=== PATIENT | female | born 1950 | race Caucasian/White ===

== ENCOUNTER → 2017-05-28 | Outpatient (CLI) | payer OTHER, MEDICARE, SELFPAY | PROVIDERS: Visit Provider Surgery | DX: Z12.31 Encounter for screening mammogram for malignant neoplasm of breast (principal); Z85.3 Personal history of malignant neoplasm of breast ==

== ENCOUNTER 2017-06-02 11:00 | Outpatient (RCR) | payer OTHER, MEDICARE, SELFPAY | END 2017-06-02 23:59 | LOC: PT 11:00 | PROVIDERS: Visit Provider Internal Medicine | DX: I89.0 Lymphedema, not elsewhere classified (principal); N64.4 Mastodynia; C50.911 Malignant neoplasm of unspecified site of right female breast | CPT/HCPCS: 97140; 97162; 97164 ==

== ENCOUNTER → 2017-06-03 10:34 | Outpatient (CLI) | payer OTHER, MEDICARE, SELFPAY ==
--- NOTE | 2017-06-03 | MM_ITS ---
MM Dig screening mamm BI w/CAD CAD Screening ORDERING PHYSICIAN : Mark Umana MD PATIENT AGE: 66 years GENDER: Female COMPARISON: Previous mammograms: 2016, May INDICATION: A 66-year-old. Previous lumpectomy and radiation right breast No hormones. No new complaints. Noncontributory family history TECHNIQUE: Standard CC and MLO images were obtained. R2 CAD reviewed. FINDINGS: RIGHT BREAST:Postsurgical lumpectomy changes are now evident upper outer quadrant of right breast with several vascular clips at the lumpectomy site. No recurrent mass is seen here. There is increased accentuation throughout the glandular elements of the right breast compared to prior study. This may reflect post radiation changes. In addition there is Generous diffuse skin thickening right breast - again most compatible with post radiation change. However Ongoing follow-up will be important to short stability and/or regression of these likely posttreatment findings and distortion. Given this fairly pronounced skin thickening and the parenchymal densities I would suggest a follow-up right mammogram in 6-8 months to confirm this is new baseline. LEFT BREAST:I stable appearance. Minimal fibroglandular element benign calcifications. Follow up one year on left. IMPRESSION: 1. RIGHT BREAST Postsurgical lumpectomy changes , upper-outer quadrant right breast now evident. Increased accentuation of fibroglandular elements throughout the right breast, along with diffuse generous skin thickening. These features most compatible with post radiation changes but slight more pronounced than typically seen in this patient. Thus Would suggest a 6-8 month follow-up to confirm this as new baseline 2. LEFT BREAST: Stable left breast. No new areas concern on the left. Follow-up in one year on left BI-RADS Category: 3 Benign Finding Short Term Follow-up right breast RECOMMENDED FOLLOW-UP: 6M - 6 MONTH FOLLOW-UP right breast One year follow-up left breast (A letter has been sent to the patient regarding results of the study.)
== END ==
PROVIDERS: Family Provider Internal Medicine Adolescent Medicine; PCP Internal Medicine Adolescent Medicine; Visit Provider Surgery
DX: Z12.31 Encounter for screening mammogram for malignant neoplasm of breast (principal); Z85.3 Personal history of malignant neoplasm of breast
CPT/HCPCS: 77067

== ENCOUNTER 2017-06-04 09:00 | Outpatient (RCR) | payer OTHER, MEDICARE, SELFPAY | END 2017-06-04 23:59 | LOC: PT 09:00 | PROVIDERS: Family Provider Internal Medicine Adolescent Medicine; PCP Internal Medicine Adolescent Medicine; Visit Provider Nurse Practitioner | DX: I89.0 Lymphedema, not elsewhere classified (principal) | CPT/HCPCS: 97140 ==

== ENCOUNTER → 2017-07-27 09:11 | Outpatient (CLI) | payer OTHER, MEDICARE, SELFPAY ==
[2017-07-27 09:29] LABS: Basophils % 0.5 % (0.1-2.0); Eosinophils # 0.2 K/mm3 (0.0-0.4); Eosinophils % 3.1 % (0.1-12.0); Hematocrit 45.7 % (37.0-47.0); Lymphocytes # 1.9 K/mm3 (0.7-4.5); Lymphocytes % 25.4 K/mm3 (10-50); Mean Corpuscular HGB Conc 32.9 g/dL (31.8-35.4); Mean Corpuscular Hemoglobin 31.1 pg (27.0-31.2); Mean Corpuscular Volume 94.3 fl (81-99); Mean Platelet Volume 9.2 fl (7.4-10.4); Monocytes # 0.4 K/mm3 (0.1-1.0); Monocytes % 5.5 % (1.7-9.3); Neutrophils # 4.8 K/mm3 (1.8-7.8); Neutrophils % 65.5 % (37.0-80.0); Platelet Count 170 K/mm3 (142-424); Red Blood Count 4.84 M/mm3 (4.20-5.40); Red Cell Distribution Width 12.9 % (11.5-17.5); White Blood Count 7.4 K/mm3 (4.8-10.8)
[2017-07-27 15:28] LABS: Alanine Aminotransferase 38 U/L (12-78); Albumin Level 3.7 gm/dL (3.4-5.0); Albumin/Globulin Ratio 1.3 (1.1-1.8); Alkaline Phosphatase 111 U/L (46-116); Aspartate Amino Transferase 30 U/L (15-37); Bilirubin,Total 0.4 mg/dL (0.2-1.0); Blood Urea Nitrogen 13 mg/dL (7-18); Calcium 9.4 mg/dL (8.5-10.1); Carbon Dioxide 31 mmol/L (21.0-32.0); Creatinine,Serum 1.44 mg/dL (0.55-1.02); Estimated Glomerular Filt Rate 36 ml/min (>60); GFR (African American) 44 ML/MIN (>60); Globulin 2.9 gm/dl (1.3-3.2); Glucose 103 mg/dL (74-106); Total Protein,Serum 6.6 gm/dL (6.4-8.2)
[2017-07-27 18:12] LABS: Anion Gap 13.2 mEq/L (5-15); Chloride 107 mmol/L (98-107); Potassium 5.2 mmoL/L (3.5-5.1); Sodium 146 mmol/L (136-145)
== END ==
PROVIDERS: Visit Provider Nurse Practitioner
DX: C50.911 Malignant neoplasm of unspecified site of right female breast (principal); Z17.0 Estrogen receptor positive status [ER+]
CPT/HCPCS: 36415; 80053; 85025

== ENCOUNTER → 2017-08-10 09:42 | Outpatient (CLI) | payer OTHER, MEDICARE, SELFPAY ==
[2017-08-10 10:25] LABS: Alanine Aminotransferase 37 U/L (12-78); Albumin Level 3.5 gm/dL (3.4-5.0); Albumin/Globulin Ratio 1.1 (1.1-1.8); Alkaline Phosphatase 107 U/L (46-116); Anion Gap 11.7 mEq/L (5-15); Aspartate Amino Transferase 33 U/L (15-37); Bilirubin,Total 0.2 mg/dL (0.2-1.0); Blood Urea Nitrogen 17 mg/dL (7-18); Calcium 9.2 mg/dL (8.5-10.1); Carbon Dioxide 28 mmol/L (21.0-32.0); Chloride 109 mmol/L (98-107); Chol/HDL Ratio 5.8 (1-3.5); Cholesterol 157 mg/dL (140-200); Creatinine,Serum 1.55 mg/dL (0.55-1.02); Estimated Glomerular Filt Rate 33 ml/min (>60); GFR (African American) 40 ML/MIN (>60); Globulin 3.2 gm/dl (1.3-3.2); Glucose 95 mg/dL (74-106); HDL Cholesterol 27 mg/dL (29-89); LDL Cholesterol 82 mg/dL (0-130); Potassium 4.7 mmoL/L (3.5-5.1); Sodium 144 mmol/L (136-145); Thyroid Stimulating Hormone 0.42 uIU/ml (0.358-3.740); Total Protein,Serum 6.7 gm/dL (6.4-8.2); Triglycerides 239 mg/dL (30-200); VLDL Cholesterol 48 mg/dL (0-40)
== END ==
PROVIDERS: Visit Provider Internal Medicine Adolescent Medicine
DX: E78.5 Hyperlipidemia, unspecified (principal); E03.9 Hypothyroidism, unspecified
CPT/HCPCS: 36415; 80053; 80061; 84443

== ENCOUNTER → 2017-12-04 12:13 | Outpatient (CLI) | payer OTHER, MEDICARE, SELFPAY ==
--- NOTE | 2017-12-04 12:15 | MM_ITS ---
MM Dig mamm DX unilat RT CAD INDICATION: Follow-up surgery and radiation for breast cancer ORDERING PHYSICIAN: Mark Umana MD PATIENT AGE: 67 years COMPARISON: 06/03/2017 TECHNIQUE: Standard images performed FINDINGS: Postsurgical changes of the right breast once again noted. There is continued skin thickening as well as postsurgical change with architectural distortion with increased accentuation throughout the glandular elements on the right breast and scattered benign-appearing calcifications. Overall the findings are slightly improved from the previous exam IMPRESSION: Postsurgical and postradiation changes, no change with no evidence of malignancy. BI-RADS Category: 2 Benign Finding(s) RECOMMENDED FOLLOW-UP: 6M - 6 MONTH FOLLOW-UP Recommend bilateral mammogram in June 2018 (A letter has been sent to the patient regarding results of the study.)
== END ==
PROVIDERS: Family Provider Internal Medicine Adolescent Medicine; PCP Internal Medicine Adolescent Medicine; Visit Provider Surgery
DX: N64.59 Other signs and symptoms in breast (principal)
CPT/HCPCS: 77065

== ENCOUNTER → 2018-01-20 09:53 | Outpatient (CLI) | payer OTHER, MEDICARE, SELFPAY ==
[2018-01-20 11:15] LABS: Anion Gap 12.2 mEq/L (5-15); Blood Urea Nitrogen 14 mg/dL (7-18); Calcium 9.5 mg/dL (8.5-10.1); Carbon Dioxide 29 mmol/L (21.0-32.0); Chloride 107 mmol/L (98-107); Creatinine,Serum 1.55 mg/dL (0.55-1.02); Estimated Glomerular Filt Rate 33 ml/min (>60); GFR (African American) 40 ML/MIN (>60); Glucose 92 mg/dL (74-106); Potassium 5.2 mmoL/L (3.5-5.1); Sodium 143 mmol/L (136-145)
== END ==
PROVIDERS: Visit Provider Nurse Practitioner
DX: C50.911 Malignant neoplasm of unspecified site of right female breast (principal); N28.9 Disorder of kidney and ureter, unspecified
CPT/HCPCS: 36415; 80048

== ENCOUNTER → 2018-04-28 10:08 | Outpatient (CLI) | payer OTHER, MEDICARE, SELFPAY ==
--- NOTE | 2018-04-28 10:13 | CT_ITS ---
CT CERVICAL SPINE WITHOUT CONTRAST CT RECONSTRUCTIONS HISTORY:Neck pain ORDERING PHYSICIAN: Krishan Caldwell MD PATIENT AGE: 67 years COMPARISON: None Technique: All CT scans at the facility use one or more dose reduction, viz: automated exposure control, ma/kV adjustment per patient size (including targeted exams where dose is matched to indication, i.e. head), or iterative reconstruction technique PROCEDURE: Axial spiral CT scanning performed of the cervical spine beginning at the base of the skull and continuing to the upper T-spine. 3-D multiplanar reconstruction with 3-D manipulation of volumetric data set in image rendering was completed by the radiologist and/or technologist with the supervision of the radiologist on independent workstation. FINDINGS: There is reversal of the lower cervical lordosis. Multilevel spondylosis noted. C1-C2: Mild hypertrophic changes of the bilateral occipital joint. C2-C3: Right-sided facet hypertrophic change with foraminal narrowing C3-C4: 4 mm anterolisthesis of C3. Facet and uncovertebral hypertrophy on the right with severe right-sided foraminal narrowing due to the severe facet hypertrophic change. The canal is narrowed at 10 mm. Mild degenerative disc disease C4-C5: 3 mm anterolisthesis of C4. Moderate to severe left-sided facet hypertrophic change with left-sided foraminal narrowing with narrowing of the canal is 10 mm. Mild degenerative disc disease C5-C6: Bilateral facet and uncovertebral hypertrophy with bilateral foraminal narrowing greater on the right with bulging disc and mild degenerative disc disease C6-C7: Mild facet hypertrophic changes with bilateral foraminal narrowing with degenerative disc disease. C7-T1: Facet hypertrophic changes There are prominent anterior osteophytes C4-C7 consistent with DISH IMPRESSION: 1. Multilevel cervical spondylosis with degenerative disc disease and facet and uncovertebral hypertrophy with bilateral foraminal narrowing and canal stenosis at multiple levels. Please see above for detailed description at each level. 2. DISH of the cervical spine. 3. No acute fracture
== END ==
PROVIDERS: PCP Internal Medicine Adolescent Medicine; Visit Provider Internal Medicine Adolescent Medicine
DX: M54.2 Cervicalgia (principal)
CPT/HCPCS: 72125

== ENCOUNTER → 2018-05-18 09:59 | Outpatient (POV) | payer OTHER, MEDICARE, SELFPAY ==
[2018-05-18 10:23] VITALS: BP 137/87; PULSE 92; RESP 18; O2SAT 99
--- NOTE | 2018-05-18 10:35 | HMH.PMCON ---
Assessment and Plan (1) Degenerative disc disease, cervical Current visit: Yes Status: Chronic Category: Medical Code(s): M50.30 - Other cervical disc degeneration, unspecified cervical region - Assessment and plan all Dx Assessment and Plan for all problems:: We will see this patient back on an as-needed basis. Patient's been instructed to call her our office if her pain worsens. This note was dictated using voice recognition software and may contain errors or omissions HPI - Data of Consult Consult date: 05/18/18 Requesting Physician: Lynn Braun APRN Primary Care Provider: Krishan Caldwell MD - Consult Narrative Reason for consult: Neck pain History of present illness: Ms. Iyer is a 67 year old female presents today for consultation. Patient states that she woke up several weeks ago with extreme neck pain however she states she is not having any more neck pain. She does have numbness in her right arm however she states that this is due to carpal tunnel. She states that she does have a pain when she lifts heavy things. But rest and heat and Tylenol take care of it. Patient is an MRI showing some degenerative changes. CC: Lynn Braun APRN [facility] History I have reviewed the patient's past medical history: Yes Medical History: Reports:: Cancer, Hyperlipidemia, Hypertension Other Medical History: Reports: Hypothyroidism Laterality Cases: Right: Breast Biopsy Other Surgeries: Yes: Tubal Ligation Amputation: No Fractures: No - *Social History Smoking Status: Never smoker Alcohol Intake: never Substance Use Type: denies use Occupational Status: employed Housing: house - Psychiatric History Expresses thoughts of harming self/others: None Suicide Plan Description: No Plan *Family Hx:: Hypertension, Cancer, Thyroid Disorder Review of Systems - Review of Systems ROS General: no recent weight change, no fever, no sleep disturbances Respiratory: no cough, no shortness of air, no recurring pulmonary infections Cardiovascular/Peripheral Vascular: No chest pain, No palpitations, no edema, no shortness of breath. Gastrointestinal: no incontinence, normal bowel movements reported Genitourinary: no incontinence Musculoskeletal: Neck pain Psychiatric: normal mood/ affect Neurological: [denies weakness in extremities], [denies balance issues] Meds Home Medications Medication Instructions Recorded Confirmed Type amlodipine 10 mg-olmesartan 20 mg 1 tab PO QDAY 06/23/17 History tablet nebivolol 10 mg tablet 10 mg PO QDAY 06/23/17 History pravastatin 40 mg tablet 40 mg PO QHS 06/23/17 History tamoxifen 10 mg tablet 10 mg PO BID 06/23/17 History levothyroxine 125 mcg capsule 125 mcg PO ONCE 07/29/17 History gabapentin 300 mg capsule 300 mg PO BID cap 08/05/17 History Allergies Allergy/AdvReac Type Severity Reaction Status Date / Time niacin [NIACIN] Allergy Intermediate I-RASH Verified 01/20/18 10:21 Objective Vital signs: Pulse Resp BP Pulse Ox 92 H 18 137/87 99 05/18/18 10:23 05/18/18 10:23 05/18/18 10:23 05/18/18 10:23 Narrative: Physical Exam General: Alert and oriented x3, no acute distress, pleasant and cooperative, [on room air] Lungs: Resps E/U, Symmetrical chest expansion, Eyes: PERRL Musculoskeletal: Flexion and extension of cervical spine somewhat guarded secondary to pain, deep tendon reflexes normal, strength in upper and lower extremities [5/5], slightly antalgic gait noted Neurological: speech clear, 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
--- NOTE | 2018-05-18 10:38 | P.CONS_ITS ---
Assessment and Plan (1) Degenerative disc disease, cervical Current visit: Yes Status: Chronic Category: Medical Code(s): M50.30 - Other cervical disc degeneration, unspecified cervical region - Assessment and plan all Dx Assessment and Plan for all problems:: We will see this patient back on an as-needed basis. Patient's been instructed to call her our office if her pain worsens. This note was dictated using voice recognition software and may contain errors or omissions HPI - Data of Consult Consult date: 05/18/18 Requesting Physician: Lynn Braun APRN Primary Care Provider: Krishan Caldwell MD - Consult Narrative Reason for consult: Neck pain History of present illness: Ms. Iyer is a 67 year old female presents today for consultation. Patient states that she woke up several weeks ago with extreme neck pain however she states she is not having any more neck pain. She does have numbness in her right arm however she states that this is due to carpal tunnel. She states that she does have a pain when she lifts heavy things. But rest and heat and Tylenol take care of it. Patient is an MRI showing some degenerative changes. CC: Lynn Braun APRN [facility] History I have reviewed the patient's past medical history: Yes Medical History: Reports:: Cancer, Hyperlipidemia, Hypertension Other Medical History: Reports: Hypothyroidism Laterality Cases: Right: Breast Biopsy Other Surgeries: Yes: Tubal Ligation Amputation: No Fractures: No - *Social History Smoking Status: Never smoker Alcohol Intake: never Substance Use Type: denies use Occupational Status: employed Housing: house - Psychiatric History Expresses thoughts of harming self/others: None Suicide Plan Description: No Plan *Family Hx:: Hypertension, Cancer, Thyroid Disorder Review of Systems - Review of Systems ROS General: no recent weight change, no fever, no sleep disturbances Respiratory: no cough, no shortness of air, no recurring pulmonary infections Cardiovascular/Peripheral Vascular: No chest pain, No palpitations, no edema, no shortness of breath. Gastrointestinal: no incontinence, normal bowel movements reported Genitourinary: no incontinence Musculoskeletal: Neck pain Psychiatric: normal mood/ affect Neurological: [denies weakness in extremities], [denies balance issues] Meds Home Medications Medication Instructions Recorded Confirmed Type amlodipine 10 mg-olmesartan 20 mg 1 tab PO QDAY 06/23/17 History tablet nebivolol 10 mg tablet 10 mg PO QDAY 06/23/17 History pravastatin 40 mg tablet 40 mg PO QHS 06/23/17 History tamoxifen 10 mg tablet 10 mg PO BID 06/23/17 History levothyroxine 125 mcg capsule 125 mcg PO ONCE 07/29/17 History gabapentin 300 mg capsule 300 mg PO BID cap 08/05/17 History Allergies Allergy/AdvReac Type Severity Reaction Status Date / Time niacin [NIACIN] Allergy Intermediate I-RASH Verified 01/20/18 10:21 Objective Vital signs: Pulse Resp BP Pulse Ox 92 H 18 137/87 99 05/18/18 10:23 05/18/18 10:23 05/18/18 10:23 05/18/18 10:23 Narrative: Physical Exam General: Alert and oriented x3, no acute distress, pleasant and cooperative, [on room air] Lungs: Resps E/
== END ==
PROVIDERS: PCP Internal Medicine Adolescent Medicine; Visit Provider Clinical Nurse Specialist Family Health
DX: M50.30 Other cervical disc degeneration, unspecified cervical region (principal)
CPT/HCPCS: 99202

== ENCOUNTER → 2018-06-07 12:35 | Outpatient (CLI) | payer OTHER, MEDICARE, SELFPAY ==
--- NOTE | 2018-06-07 12:40 | MM_ITS ---
MM Dig screening mamm BI w/CAD ORDERING PHYSICIAN : Krystle Chan PATIENT AGE: 67 years GENDER: Female COMPARISON: November 2017 and June 2017 right mammogram. Also previous June and July 2016 study was INDICATION: .: breast cancer right lumpectomy with radiation. July 2016 No chemotherapy. Surgical scar noted towards upper-outer quadrant right breast No new complaints TECHNIQUE: Standard CC and MLO images were obtained. R2 CAD reviewed. FINDINGS: RIGHT BREAST: Postsurgical changes upper outer quadrant right breast are again noted with architectural distortion & multiple vascular clips. The mild skin thickening right breast reflecting post radiation changes have decreased slightly since last years studies. There is very subtle thin rim about up to 3 cm ovoid fat density area with a upper-outer quadrant right breast. This most likely reflects postsurgical changes and possibly area of developing oil cyst or possibly fat necrosis. Only some very small scant small calcifications inferior to this which appear unchanged This mild accentuation of fibroglandular elements anterior to the surgical site also again noted but appear to be stable. . However given the overall appearance would suggest a 6 month follow-up to confirm stability of the mild changes and architectural distortion that is currently attributed to surgery and radiation. . LEFT BREAST: Stable with no significant findings. Scattered calcifications. Follow-up in one year on left IMPRESSION: 1. RIGHT BREAST: Previous lumpectomy and post radiation changes right breast. Postsurgical distortion and mild accentuation of fibroglandular elements and features most certainly reflect post radiation and surgical changes.. However would suggest a follow-up right mammogram in 6 months to further confirm stability 2. LEFT BREAST: stable left breast with no areas of concern. Follow-up in one year on left. BI-RADS Category: 3 Probably Benign Finding Short Term Follow-up RECOMMENDED FOLLOW-UP: 6M 6 MONTH FOLLOW-UP right breast (A letter has been sent to the patient regarding results of the study.)
== END ==
PROVIDERS: PCP Internal Medicine Adolescent Medicine; Visit Provider Nurse Practitioner
DX: C50.911 Malignant neoplasm of unspecified site of right female breast (principal); Z12.31 Encounter for screening mammogram for malignant neoplasm of breast
CPT/HCPCS: 77067

== ENCOUNTER → 2018-07-26 09:42 | Outpatient (CLI) | payer OTHER, SELFPAY ==
[2018-07-26 09:58] LABS: Basophils % 0.6 % (0.1-2.0); Eosinophils # 0.2 K/mm3 (0.0-0.4); Eosinophils % 2.6 % (0.1-12.0); Hematocrit 41.8 % (37.0-47.0); Hemoglobin 13.9 g/dL (12.2-16.2); Lymphocytes # 1.8 K/mm3 (0.7-4.5); Lymphocytes % 27.9 % (10-50); Mean Corpuscular HGB Conc 33.3 g/dL (31.8-35.4); Mean Corpuscular Hemoglobin 31.4 pg (27.0-31.2); Mean Corpuscular Volume 94.2 fl (81-99); Mean Platelet Volume 8.9 fl (7.4-10.4); Monocytes # 0.3 K/mm3 (0.1-1.0); Monocytes % 5.4 % (1.7-9.3); Neutrophils % 63.5 % (37.0-80.0); Platelet Count 163 K/mm3 (142-424); Red Blood Count 4.44 M/mm3 (4.20-5.40); Red Cell Distribution Width 13.4 % (11.5-17.5); White Blood Count 6.3 K/mm3 (4.8-10.8)
[2018-07-26 11:08] LABS: Alanine Aminotransferase 32 U/L (12-78); Albumin Level 3.5 gm/dL (3.4-5.0); Albumin/Globulin Ratio 1.2 (1.1-1.8); Alkaline Phosphatase 119 U/L (46-116); Anion Gap 12.4 mEq/L (5-15); Aspartate Amino Transferase 30 U/L (15-37); Bilirubin,Total 0.3 mg/dL (0.2-1.0); Blood Urea Nitrogen 12 mg/dL (7-18); Calcium 9.2 mg/dL (8.5-10.1); Carbon Dioxide 29 mmol/L (21.0-32.0); Chloride 106 mmol/L (98-107); Creatinine,Serum 1.32 mg/dL (0.55-1.02); Estimated Glomerular Filt Rate 40 ml/min (>60); GFR (African American) 48 ML/MIN (>60); Glucose 121 mg/dL (74-106); Potassium 4.4 mmoL/L (3.5-5.1); Sodium 143 mmol/L (136-145); Total Protein,Serum 6.5 gm/dL (6.4-8.2)
== END ==
PROVIDERS: Visit Provider Nurse Practitioner
DX: C50.911 Malignant neoplasm of unspecified site of right female breast (principal); N18.9 Chronic kidney disease, unspecified
CPT/HCPCS: 36415; 80053; 85025

== ENCOUNTER → 2018-07-27 08:06 | Outpatient (CLI) | payer OTHER, SELFPAY ==
--- NOTE | 2018-07-27 08:12 | XR_ITS ---
XR DEXA axial skeleton HISTORY: ITS.REASON: POST MENOPAUSAL SCREENING ORDERING PHYSICIAN: Krishan Caldwell MD PATIENT AGE: 67 years COMPARISON: 04/21/2017 FINDINGS: The BMD measured at the Right femoral neck is 1.068 g/cm squared with a T score of 0.2. This is considered Normal according to the World Health Organization criteria. Fracture risk is Low. Treatment is advised. The main hip density has decreased by 0.9%. L1 L4 density has a T score of 3.1 which is normal and has increased by 1.4% IMPRESSION: Normal bone density with low fracture risk. Follow-up exam suggested July 2020
== END ==
PROVIDERS: PCP Internal Medicine Adolescent Medicine; Visit Provider Internal Medicine Adolescent Medicine
DX: Z13.820 Encounter for screening for osteoporosis (principal); Z78.0 Asymptomatic menopausal state
CPT/HCPCS: 77080

== ENCOUNTER 2018-08-13 09:00 | Outpatient (RCR) | payer OTHER, SELFPAY ==
--- NOTE | 2018-08-05 09:16 | HMH.PTOPWND ---
Rehab Outpt Wound Evaluation Rehab OP Wound Evaluation Start: 08/05/18 09:07 Freq: Status: Active Protocol: Document 08/05/18 09:07 DONNELL (Rec: 08/05/18 09:16 PHOJEOVANNY [id number]) Electronically Signed By Kamar Carpenter, PT 08/05/18 09:07 Subjective/History History History Pt is a 67 yowf who presents with c/o mild increased edema and heaviness throughout the right UE and breast ~ 2 yrs S/ P right breast lumpectomy with lymph node resection. Sh reports no pain currently, but does have intermittent decreased sensation due to her oral chemo medication. She reports she has been wearing her compression garments as indicated, which helps keep her edema down. She has hx of HTN, HL, hypthyroid. Lymphedema Eval Classification of Lymphedema Secondary Lymphedema Yes Stemmer's sign Stemmer's Sign no Stage of Lymphedema Lymphedema stages Stage 0 (subjective c/o heaviness and aching) Skin Changes Dry Skin Yes Pain Scale Pain Scale (0-10) 0 Radiation Therapy Has received radiation therapy yes Chemo Therapy Has received chemo therapy yes Affected Extremities Areas Affected by Lymphedema/Edema Right Upper Extremity Abdomen Right Breast Right Axilla Manual Lymphatic Drainage Treatment Area MLD Treatment Area Right Upper Extremity Abdomen Right Breast Right Axilla Wound Problems/Impairments Impairments Problems/Impairmments Palpation Tenderness Impaired Strength Impaired Recreational Activities Increased Edema Lymphedema Present Subjective C/O Pain Impaired Self Care/Self Management Prognosis Rehab Potential Good Clinical Impression Consistent with Diagnosis Yes Short Term Goals Number of Weeks 4 Patient to be Ind w/ Lymphedema Self Yes Massage Technique Patient to be Ind w/ [place] Yes Compression Garments Patient to Understand Lymphedema
== END 2018-08-13 09:05 | disposition home or self-care (01) ==
LOC: PT 09:00
PROVIDERS: Visit Provider Nurse Practitioner
DX: I89.0 Lymphedema, not elsewhere classified (principal); C50.911 Malignant neoplasm of unspecified site of right female breast; M79.601 Pain in right arm; M54.2 Cervicalgia
CPT/HCPCS: 97010; 97110; 97140; 97162

== ENCOUNTER → 2018-12-06 12:43 | Outpatient (CLI) | payer OTHER, SELFPAY ==
--- NOTE | 2018-12-06 12:44 | MM_ITS ---
MM Dig mamm DX unilat RT CAD INDICATION: 6 month follow-up ORDERING PHYSICIAN: Mark Umana MD PATIENT AGE: 68 years COMPARISON: 06/07/2018, 12/04/2017 TECHNIQUE: Standard images of the right breast FINDINGS: Previous lumpectomy and postradiation changes of the right breast once again noted. Surgical clips are present in the upper portion of the right breast posteriorly near the 11:00 region. There is a lucent area at this region measuring 2.9 x 2.8 cm. Similar to the previous exam consistent with thyroidal cyst. Postsurgical changes with increased density and faint calcifications once again noted involving the central aspect of the right breast not significant change. Scattered coarse calcifications are noted which are stable. Skin thickening also noted unchanged. No new abnormalities apparent. Architectural distortion noted in the surgical bed as before. IMPRESSION: Postsurgical changes, no interval change with no evidence of malignancy. Recommend resume bilateral mammogram in June 2019 BI-RADS Category: 2 Benign Finding(s) RECOMMENDED FOLLOW-UP: 6M - 6 MONTH FOLLOW-UP (A letter has been sent to the patient regarding results of the study.)
== END ==
PROVIDERS: PCP Internal Medicine Adolescent Medicine; Visit Provider Surgery
DX: C50.111 Malignant neoplasm of central portion of right female breast (principal); Z17.0 Estrogen receptor positive status [ER+]
CPT/HCPCS: 77065

== ENCOUNTER → 2019-01-21 10:03 | Outpatient (CLI) | payer OTHER, SELFPAY ==
[2019-01-21 10:28] LABS: Basophils # 0.1 K/mm3 (0-0.2); Basophils % 0.8 % (0.1-2.0); Eosinophils # 0.1 K/mm3 (0.0-0.4); Eosinophils % 2.3 % (0.1-12.0); Hematocrit 43.5 % (37.0-47.0); Lymphocytes # 1.6 K/mm3 (0.7-4.5); Lymphocytes % 25.7 % (10-50); Mean Corpuscular HGB Conc 32.1 g/dL (31.8-35.4); Mean Corpuscular Volume 96.4 fl (81-99); Mean Platelet Volume 8.7 fl (7.4-10.4); Monocytes # 0.5 K/mm3 (0.1-1.0); Monocytes % 7.2 % (1.7-9.3); Platelet Count 185 K/mm3 (142-424); Red Blood Count 4.52 M/mm3 (4.20-5.40); Red Cell Distribution Width 13.2 % (11.5-17.5); White Blood Count 6.3 K/mm3 (4.8-10.8)
[2019-01-21 11:39] LABS: Alanine Aminotransferase 33 U/L (12-78); Albumin Level 3.6 gm/dL (3.4-5.0); Albumin/Globulin Ratio 1.2 (1.1-1.8); Alkaline Phosphatase 105 U/L (46-116); Anion Gap 10.3 mEq/L (5-15); Aspartate Amino Transferase 35 U/L (15-37); Bilirubin,Total 0.3 mg/dL (0.2-1.0); Blood Urea Nitrogen 14 mg/dL (7-18); Calcium 9.1 mg/dL (8.5-10.1); Carbon Dioxide 28 mmol/L (21.0-32.0); Chloride 108 mmol/L (98-107); Chol/HDL Ratio 5.3 (1-3.5); Cholesterol 147 mg/dL (140-200); Creatinine,Serum 1.47 mg/dL (0.55-1.02); Estimated Glomerular Filt Rate 35 ml/min (>60); GFR (African American) 43 ML/MIN (>60); Globulin 2.9 gm/dl (1.3-3.2); Glucose 96 mg/dL (74-106); HDL Cholesterol 28 mg/dL (29-89); LDL Cholesterol 69 mg/dL (0-130); Potassium 4.3 mmoL/L (3.5-5.1); Sodium 142 mmol/L (136-145); Thyroid Stimulating Hormone 0.26 uIU/ml (0.358-3.740); Total Protein,Serum 6.5 gm/dL (6.4-8.2); Triglycerides 250 mg/dL (30-200); VLDL Cholesterol 50 mg/dL (0-40)
== END ==
PROVIDERS: Visit Provider Internal Medicine Adolescent Medicine
DX: E78.5 Hyperlipidemia, unspecified (principal); E03.9 Hypothyroidism, unspecified; C50.911 Malignant neoplasm of unspecified site of right female breast
CPT/HCPCS: 36415; 80053; 80061; 84443; 85025

== ENCOUNTER → 2019-01-28 12:36 | Outpatient (CLI) | payer OTHER, SELFPAY ==
--- NOTE | 2019-01-28 12:40 | XR_ITS ---
PROCEDURE: XR FOOT RT MIN 3V CLINICAL INDICATION: CELLULITIS OF SECOND TOE Redness, pain, swelling COMPARISON: No exams were available for comparison FINDINGS: No fracture or dislocation. No lytic or blastic change. There is normal mineralization. Minimal osteoarthritic changes are present at the 1st metatarsophalangeal joint. A small sclerotic area involves the proximal and lateral aspect of the proximal phalanx of the 2nd toe. No definite bony destructive process evident. IMPRESSION: Degenerative change, no acute finding Dictated by: Barry Fairbanks MD 01/28/2019 13:32 Signed by: <Electronically signed by Barry Fairbanks MD in [place]> 01/28/2019 13:32
== END ==
PROVIDERS: PCP Internal Medicine Adolescent Medicine; Visit Provider Internal Medicine Adolescent Medicine
DX: L03.031 Cellulitis of right toe (principal)
CPT/HCPCS: 73630

== ENCOUNTER → 2019-05-02 11:18 | Outpatient (CLI) | payer OTHER, SELFPAY ==
[2019-05-02 12:44] LABS: Blood Urea Nitrogen 15 mg/dL (7-18); Calcium 9.2 mg/dL (8.5-10.1); Carbon Dioxide 29 mmol/L (21.0-32.0); Chloride 107 mmol/L (98-107); Creatinine,Serum 1.45 mg/dL (0.55-1.02); Estimated Glomerular Filt Rate 36 ml/min (>60); GFR (African American) 43 ML/MIN (>60); Glucose 89 mg/dL (74-106); Sodium 145 mmol/L (136-145); Thyroid Stimulating Hormone 0.46 uIU/ml (0.358-3.740)
== END ==
PROVIDERS: Visit Provider Internal Medicine Adolescent Medicine
DX: E03.9 Hypothyroidism, unspecified (principal); N17.9 Acute kidney failure, unspecified
CPT/HCPCS: 36415; 80048; 84443

== ENCOUNTER → 2019-06-28 08:52 | Outpatient (CLI) | payer OTHER, SELFPAY ==
--- NOTE | 2019-06-28 08:52 | MM_ITS ---
PROCEDURE: MM DIG SCREENING MAMM BI W/CAD CLINICAL INDICATION: history of right breast cancer with previous lumpectomy and follow-up radiation therapy COMPARISON: DXRT MM Dig mamm DX unilat RT CAD from 12/04/2017 [facility] MM Dig screening mamm BI w/CAD from 06/07/2018 DIG MAMM-DX UNI-RT from 12/06/2018 TECHNIQUE: Standard CC and MLO images and 3D Tomosinthisis was obtained. R2 CAD reviewed. FINDINGS: Postlumpectomy changes are seen right breast with multiple surgical clips at the biopsy site. There is diffuse skin thickening secondary to radiation therapy. There are scattered benign-appearing calcifications in each breast along with a background of diffuse fibroglandular densities. There is minimal arterial calcification in each breast. There is a mole marker left breast. There is no new or suspicious lesion in either breast and no suspicious microcalcifications. IMPRESSION: Stable exam with prominent postlumpectomy changes and post radiation therapy changes right breast BI-RAD Category: 2 Benign Finding(s) FOLLOW-UP: 1YR 1 Year Follow-up (A letter has been sent to the patient regarding results of the study.) Dictated by: Dr. Cruz Herrera MD 06/29/2019 09:[address] Cruz Herrera MD in [place] 06/29/2019 09:32
== END ==
PROVIDERS: PCP Internal Medicine Adolescent Medicine; Visit Provider Surgery
DX: Z12.39 Encounter for other screening for malignant neoplasm of breast (principal); Z85.3 Personal history of malignant neoplasm of breast
CPT/HCPCS: 77063; 77067

== ENCOUNTER → 2020-01-25 09:47 | Outpatient (CLI) | payer OTHER, SELFPAY ==
[2020-01-25 10:35] LABS: Basophils % 0.5 % (0.1-2.0); Eosinophils # 0.3 K/mm3 (0.0-0.4); Eosinophils % 3.3 % (0.1-12.0); Hematocrit 41.5 % (37.0-47.0); Hemoglobin 14.4 g/dL (12.2-16.2); Lymphocytes # 2.4 K/mm3 (0.7-4.5); Lymphocytes % 28.3 % (10-50); Mean Corpuscular HGB Conc 34.6 g/dL (31.8-35.4); Mean Corpuscular Hemoglobin 31.8 pg (27.0-31.2); Mean Corpuscular Volume 91.9 fl (81-99); Mean Platelet Volume 8.6 fl (7.4-10.4); Monocytes # 0.5 K/mm3 (0.1-1.0); Monocytes % 5.8 % (1.7-9.3); Neutrophils # 5.2 K/mm3 (1.8-7.8); Neutrophils % 62.1 % (37.0-80.0); Platelet Count 173 K/mm3 (142-424); Red Blood Count 4.52 M/mm3 (4.20-5.40); Red Cell Distribution Width 13.8 % (11.5-17.5); White Blood Count 8.4 K/mm3 (4.8-10.8)
[2020-01-25 11:07] LABS: Alanine Aminotransferase 21 U/L (12-78); Albumin Level 3.9 g/dl (3.5-5.0); Albumin/Globulin Ratio 1.4 (1.1-1.8); Alkaline Phosphatase 102 U/L (38-126); Anion Gap 14.5 mEq/L (5-15); Aspartate Amino Transferase 35 U/L (14-36); Bilirubin,Total 0.4 mg/dl (0.2-1.3); Blood Urea Nitrogen 18 mg/dl (7-17); Calcium 9.5 mg/dl (8.4-10.2); Carbon Dioxide 29 mmol/L (22.0-30.0); Chloride 102 mmol/L (98-107); Estimated Glomerular Filt Rate 37 ml/min (>60); GFR (African American) 45 ML/MIN (>60); Globulin 2.7 g/dL (1.3-3.2); Glucose 87 mg/dl (74-100); Potassium 4.5 mmoL/L (3.5-5.1); Sodium 141 mmol/L (136-145); Total Protein,Serum 6.6 g/dl (6.3-8.2)
== END ==
PROVIDERS: Visit Provider Internal Medicine Medical Oncology
DX: Z85.3 Personal history of malignant neoplasm of breast (principal)
CPT/HCPCS: 36415; 80053; 85025

== ENCOUNTER → 2020-01-26 13:58 | Outpatient (CLI) | payer OTHER, SELFPAY ==
--- NOTE | 2020-01-26 14:02 | CA_ITS ---
APPROVED REPORT Right Lower Extremity Venous Study for DVT. Chief Telephone Operator: TREVER MotaT Indications Lower Extremity Edema: Right RT ANKLE SWELLING X SEVERAL WKS, PT ON CHEMO FOR BREAST CA Risk Factors Malignancy Vein Imaging CFV (R): compressive, spontaneous, phasic, augmentation FEM (R): compressive, spontaneous, phasic, augmentation POP (R): compressive, spontaneous, phasic, augmentation PTV (R): Compressible GSV (R): Compressible Peroneals (R):Compressible GAS (R): Compressible Findings Study suggests no evidence of DVT of the right lower extremity. Study suggests noo evidence of SVT of the right lower extremity. Conclusion Study suggests no evidence of DVT of the right lower extremity. Study suggests noo evidence of SVT of the right lower extremity. Electronically signed by : Barry Fairbanks MD 01/27/2020 15:53:10
== END ==
PROVIDERS: PCP Internal Medicine Adolescent Medicine; Visit Provider Internal Medicine Medical Oncology
DX: R22.41 Localized swelling, mass and lump, right lower limb (principal)
CPT/HCPCS: 93971

== ENCOUNTER → 2020-07-02 08:04 | Outpatient (CLI) | payer OTHER, SELFPAY ==
--- NOTE | 2020-07-02 08:11 | MM_ITS ---
PROCEDURE: MM DIG SCREENING MAMM BI W/CAD Digital Breast Tomosynthesis Included CLINICAL INDICATION: screening There has been a previous lumpectomy right breast for malignancy with follow-up radiation therapy. COMPARISON: [facility] MM Dig screening mamm BI w/CAD from 06/07/2018 MG DIG MAMM-DX UNI-RT from 12/06/2018 MG MM DIG SCREENING MAMM BI W/CAD from 06/28/2019 TECHNIQUE: Standard CC and MLO images and 3D Tomosynthesis was obtained. R2 CAD reviewed. FINDINGS: Mild postlumpectomy scarring is seen upper central portion right breast. There is prominent diffuse skin thickening secondary to previous radiation therapy. Five surgical clips are seen at the lumpectomy site. There are few scattered benign appearing calcifications in each breast. There is faint arterial calcification in each breast. There is a mole marker left breast. There is no suspicious lesion in either breast and no suspicious microcalcifications. IMPRESSION: Stable exam post lumpectomy right breast with no suspicious lesions seen BI-RAD Category: 2 Benign Finding(s) FOLLOW-UP: 1YR 1 Year Follow-up (A letter has been sent to the patient regarding results of the study.) Dictated by: Dr. Cruz Herrera MD 07/03/2020 08:33 Dr. Cruz Herrera MD in [place] 07/03/2020 08:33
== END ==
PROVIDERS: PCP Internal Medicine Adolescent Medicine; Visit Provider Surgery
DX: Z85.3 Personal history of malignant neoplasm of breast (principal); Z12.31 Encounter for screening mammogram for malignant neoplasm of breast
CPT/HCPCS: 77063; 77067

== ENCOUNTER → 2020-08-07 07:28 | Outpatient (CLI) | payer OTHER, SELFPAY ==
[2020-08-07 07:54] LABS: Basophils # 0.1 K/mm3 (0-0.2); Basophils % 0.7 % (0.1-2.0); Eosinophils # 0.4 K/mm3 (0.0-0.4); Eosinophils % 4.8 % (0.1-12.0); Hematocrit 46.9 % (37.0-47.0); Hemoglobin 14.9 g/dL (12.2-16.2); Lymphocytes # 2.2 K/mm3 (0.7-4.5); Lymphocytes % 26.8 % (10-50); Mean Corpuscular HGB Conc 31.8 g/dL (31.8-35.4); Mean Corpuscular Hemoglobin 30.4 pg (27.0-31.2); Mean Corpuscular Volume 95.8 fl (81-99); Monocytes # 0.5 K/mm3 (0.1-1.0); Monocytes % 6.5 % (1.7-9.3); Neutrophils % 61.1 % (37.0-80.0); Platelet Count 186 K/mm3 (142-424); Red Cell Distribution Width 13.8 % (11.5-17.5); White Blood Count 8.1 K/mm3 (4.8-10.8)
[2020-08-07 08:58] LABS: Chloride 106 mmol/L (98-107); Sodium 142 mmol/L (136-145)
[2020-08-07 08:59] LABS: Potassium 4.4 mmoL/L (3.5-5.1)
[2020-08-07 09:01] LABS: Alanine Aminotransferase 23 U/L (12-78); Alkaline Phosphatase 99 U/L (38-126); Anion Gap 11.4 mEq/L (5-15); Aspartate Amino Transferase 38 U/L (14-36); Bilirubin,Total 0.7 mg/dl (0.2-1.3); Blood Urea Nitrogen 18 mg/dl (7-17); Carbon Dioxide 29 mmol/L (22.0-30.0); Estimated Glomerular Filt Rate 37 ml/min (>60); GFR (African American) 45 ML/MIN (>60)
[2020-08-07 09:02] LABS: Albumin Level 4.1 g/dl (3.5-5.0); Albumin/Globulin Ratio 1.4 (1.1-1.8); Calcium 9.7 mg/dl (8.4-10.2); Globulin 2.9 g/dL (1.3-3.2); Glucose 100 mg/dl (74-100)
== END ==
PROVIDERS: Visit Provider Internal Medicine Medical Oncology
DX: C50.911 Malignant neoplasm of unspecified site of right female breast (principal)
CPT/HCPCS: 36415; 80053; 85025

== ENCOUNTER 2020-08-31 09:00 | Outpatient (RCR) | payer OTHER, SELFPAY ==
--- NOTE | 2020-08-15 10:20 | HMH.PTOPWND ---
Rehab Outpt Wound Evaluation Rehab OP Wound Evaluation Start: 08/15/20 09:05 Freq: Status: Active Protocol: Document 08/15/20 10:13 DONNELL (Rec: 08/15/20 10:20 DONNELL [id number]) Electronically Signed By Kamar Carpenter, PT 08/15/20 10:13 Subjective/History History History Pt is 69 yowf who presents with c/o R UE feeling heavy sometimes ~ 4 yrs S/P R lumpectomy due to breast cancer. SHe is unsure of any lymph nodes removed, I think maybe 2. She does reports previous treatment with our clinic which helped considerably. She reports no c /o pain and only intermittent feelings of stiffness or tightness. She did have chemo and radiation after her surgery. She has PMH of HL, HTN, Hypothyroid, and Hepatitis. Subjective Subjective No c/o pain at this time and 0 /4 tenderness to palpation. Mild fibrotic/doughy feeling of tissue in the R axillary region. Lymphedema Eval Classification of Lymphedema Secondary Lymphedema Yes Stemmer's sign Stemmer's Sign no Stage of Lymphedema Lymphedema stages Stage 0 (subjective c/o heaviness and aching) Skin Changes Dry Skin Yes Other Changes Yes Pain Scale Pain Scale (0-10) 0 Radiation Therapy Has received radiation therapy yes Chemo Therapy Has received chemo therapy yes Affected Extremities Areas Affected by Lymphedema/Edema Right Upper Extremity,Right Breast,Right Axilla Manual Lymphatic Drainage Treatment Area MLD Treatment Area Right Upper Extremity,Abdomen, Right Breast,Right Axilla,Sub Axiallary Region Wound Problems/Impairments Impairments Problems/Impairmments Impaired Lifting,Impaired Recreational Activities, Increased Edema,Lymphedema Present,Impaired Self Care/ Self Management Prognosis Rehab Potential Good Clinical Impression Consistent with Diagnosis Yes Short Term Goals Number of Weeks 4 Decrease Edema Yes Pa
== END 2020-08-31 09:05 | disposition home or self-care (01) ==
LOC: PT 09:00
PROVIDERS: PCP Internal Medicine Adolescent Medicine; Visit Provider Internal Medicine Medical Oncology
DX: I89.0 Lymphedema, not elsewhere classified (principal); Z85.3 Personal history of malignant neoplasm of breast
CPT/HCPCS: 97140; 97162

== ENCOUNTER → 2020-11-05 09:13 | Outpatient (CLI) | payer OTHER, SELFPAY ==
[2020-11-05 09:40] LABS: Basophils # 0.2 K/mm3 (0-0.2); Basophils % 1.8 % (0.1-2.0); Eosinophils # 0.3 K/mm3 (0.0-0.4); Eosinophils % 3.1 % (0.1-12.0); Hematocrit 33.4 % (37.0-47.0); Hemoglobin 14.3 g/dL (12.2-16.2); Lymphocytes % 23.6 % (10-50); Mean Corpuscular Hemoglobin 33.7 pg (27.0-31.2); Mean Platelet Volume 19.1 fl (7.4-10.4); Monocytes # 0.5 K/mm3 (0.1-1.0); Monocytes % 5.9 % (1.7-9.3); Neutrophils # 5.6 K/mm3 (1.8-7.8); Neutrophils % 65.7 % (37.0-80.0); Platelet Count 85 K/mm3 (142-424); Red Blood Count 4.23 M/mm3 (4.20-5.40); White Blood Count 8.5 K/mm3 (4.8-10.8)
[2020-11-05 09:41] LABS: Mean Corpuscular HGB Conc 34.2 g/dL (31.8-35.4); Red Cell Distribution Width 15.2 % (11.5-17.5)
[2020-11-05 10:58] LABS: Alanine Aminotransferase 22 U/L (12-78); Albumin/Globulin Ratio 1.6 (1.1-1.8); Alkaline Phosphatase 102 U/L (38-126); Anion Gap 8.4 mEq/L (5-15); Aspartate Amino Transferase 40 U/L (14-36); Bilirubin,Total 0.7 mg/dl (0.2-1.3); Blood Urea Nitrogen 15 mg/dl (7-17); Calcium 9.2 mg/dl (8.4-10.2); Carbon Dioxide 29 mmol/L (22.0-30.0); Chloride 107 mmol/L (98-107); Chol/HDL Ratio 5.3 (1-3.5); Cholesterol 181 mg/dl (140-200); Estimated Glomerular Filt Rate 37 ml/min (>60); GFR (African American) 45 ML/MIN (>60); Globulin 2.5 g/dL (1.3-3.2); Glucose 88 mg/dl (74-100); HDL Cholesterol 34 mg/dl (40-60); Magnesium 2.1 mg/dl (1.6-2.3); Potassium 4.4 mmoL/L (3.5-5.1); Sodium 140 mmol/L (136-145); Total Protein,Serum 6.5 g/dl (6.3-8.2); Triglycerides 191 mg/dl (30-150); VLDL Cholesterol 38 mg/dL (0-40)
[2020-11-05 11:09] LABS: Direct LDL Cholesterol 123.93 mg/dL (100-129)
== END ==
PROVIDERS: Visit Provider Internal Medicine Adolescent Medicine
DX: E03.9 Hypothyroidism, unspecified (principal); E78.5 Hyperlipidemia, unspecified; R60.9 Edema, unspecified
CPT/HCPCS: 36415; 80053; 80061; 83735; 84443; 85025

== ENCOUNTER → 2020-12-05 10:05 | Outpatient (CLI) | payer OTHER, SELFPAY ==
[2020-12-05 10:48] LABS: Basophils # 0.1 K/mm3 (0-0.2); Basophils % 0.8 % (0.1-2.0); Eosinophils # 0.2 K/mm3 (0.0-0.4); Eosinophils % 2.9 % (0.1-12.0); Hematocrit 44.5 % (37.0-47.0); Hemoglobin 14.8 g/dL (12.2-16.2); Lymphocytes # 1.9 K/mm3 (0.7-4.5); Mean Corpuscular HGB Conc 33.2 g/dL (31.8-35.4); Mean Corpuscular Hemoglobin 30.3 pg (27.0-31.2); Mean Corpuscular Volume 91.2 fl (81-99); Mean Platelet Volume 9.1 fl (7.4-10.4); Monocytes # 0.4 K/mm3 (0.1-1.0); Neutrophils # 4.7 K/mm3 (1.8-7.8); Neutrophils % 64.3 % (37.0-80.0); Platelet Count 166 K/mm3 (142-424); Red Blood Count 4.88 M/mm3 (4.20-5.40); White Blood Count 7.3 K/mm3 (4.8-10.8)
[2020-12-05 11:05] LABS: Chloride 106 mmol/L (98-107); Potassium 4.1 mmoL/L (3.5-5.1); Sodium 144 mmol/L (136-145)
[2020-12-05 11:07] LABS: Alanine Aminotransferase 20 U/L (12-78); Aspartate Amino Transferase 37 U/L (14-36); Bilirubin,Total 0.6 mg/dl (0.2-1.3); Blood Urea Nitrogen 17 mg/dl (7-17); Estimated Glomerular Filt Rate 34 ml/min (>60); GFR (African American) 41 ML/MIN (>60)
[2020-12-05 11:08] LABS: Albumin Level 4.4 g/dl (3.5-5.0); Albumin/Globulin Ratio 1.6 (1.1-1.8); Alkaline Phosphatase 105 U/L (38-126); Anion Gap 14.1 mEq/L (5-15); Calcium 9.7 mg/dl (8.4-10.2); Carbon Dioxide 28 mmol/L (22.0-30.0); Globulin 2.7 g/dL (1.3-3.2); Glucose 95 mg/dl (74-100); Iron 55 ug/dL (37-170); Total Protein,Serum 7.1 g/dl (6.3-8.2)
[2020-12-05 11:17] LABS: Total Iron Binding Capacity 318 ug/dL (265-497)
[2020-12-05 11:25] LABS: INR 0.92 (0.9-1.1); Prothrombin Time 10.9 seconds (10.1-12.5)
[2020-12-05 11:42] LABS: Ferritin 94.5 ng/ml (11.1-264)
[2020-12-05 11:55] LABS: Vitamin B12 803 pg/mL (239-931)
[2020-12-07 10:07] LABS: Peripheral Smear Review Scanned Result
== END ==
PROVIDERS: Visit Provider Internal Medicine Adolescent Medicine
DX: D69.6 Thrombocytopenia, unspecified (principal)
CPT/HCPCS: 36415; 80053; 82607; 82728; 83540; 83550; 85025; 85610

== ENCOUNTER → 2020-12-18 08:36 | Outpatient (CLI) | payer OTHER, SELFPAY | PROVIDERS: Visit Provider Surgery | DX: Z01.812 Encounter for preprocedural laboratory examination (principal); Z20.822 Contact with and (suspected) exposure to COVID-19; Z12.11 Encounter for screening for malignant neoplasm of colon | CPT/HCPCS: U0003 ==

== ENCOUNTER 2020-12-20 09:15 | Day surgery (SDC) | payer OTHER, SELFPAY ==
[2020-12-18 09:46] VITALS: BMI 29.0
[2020-12-20 09:47] VITALS: BP 165/76; PULSE 82; RESP 18; TEMP 36.9; O2SAT 94
--- NOTE | 2020-12-20 10:11 | P.PN_ITS ---
[facility] Anesthesia Checklist - Patient Identification Patient Identification: Arm Band - Structural Data Admitted From: Home Planned Operative Procedure/s: colonoscopy Consent for Planned Operative Procedure(s) Verified: Yes Verified Documents: Surgical Consent, History and Physical - NPO Status Verified Time NPO: 00:00 - Additional verifications Anesthesia Reactions: No - Airway Assessment C-Spine Mobility Assessed: Yes (mp2) TMJ Mobility Assessed: Yes Dentition: Good Dentition - Neurological Assessment Level of Consciousness: Awake, Alert - Anesthesia Plan Anesthesia Risk discussed: Yes Anesthesia Plan: Verified ASA Class: II Anesthesia Type: MAC [facility] History I have reviewed the patient's past medical history: Yes Medical History: Reports:: Cancer (breast), Hepatitis, Hyperlipidemia, Hypertension Denies:: Diabetes Mellitus Type 1, Diabetes Mellitus Type 2, Internal Pacemaker, MRSA, Seizures *Have you ever received a pneumonia vaccine?: No *Have you received a flu vaccine this season?: No Other Medical History: Reports: Arthritis, Hypothyroidism, Radiation Therapy Anesthesia experience/problems:: nac Laterality Cases: Right: Breast Biopsy, Lumpectomy Other Surgeries: Yes: Cancer Surgery, Colonoscopy, Tubal Ligation. No: Pacemaker Amputation: No Fractures: No - *Social History Last grade of school completed: High school graduate Smoking Status: Never smoker Alcohol Intake: never Substance Use Type: denies use *Occupational Status:: unemployed Housing: house Household Members: spouse *Travel in the last 8 weeks: None Family Hx:: Asthma, Coronary Artery Disease, Tuberculosis
--- NOTE | 2020-12-20 11:52 | P.PCN_ITS ---
- Procedure: Date: 12/20/20 Patient Date of :: 1950 Procedure Performed:: Colonoscopy with polypectomy Indications:: Screening Performing Provider:: Mark Umana MD Referring Provider:: . Sedation:: Monitored anesthesia care Procedure:: After informed consent was obtained the patient was taken to the endoscopy suite. Sedation ensued after the patient was transferred to the left lateral decubitus position. Pulse, blood pressure, and oxygen saturation were monitored throughout the procedure. Digital rectal exam revealed no significant ab normality. The colonoscope was placed in position. The entire colon was evaluated. The colonoscope was carefully removed and the patient was transferred to recovery in stable condition. Please see findings and specimens below for detail. Findings:: Bowel preparation moderate to poor Fairly severe spasticity and lack of relaxation Hemorrhoidal tag/cushions Multiple complex polyps Patchy inflammatory changes in sigmoid colon Specimens:: Polyp at 60 cm (snare) Polyp at 35 cm (snare) Polyp at 15 cm and adjacent polyp (snare and cold biopsy forceps) Polyp at 7 cm Recommendations:: Timing of repeat colonoscopy is pending pathology but will likely be around 6-12 months with extended bowel preparation secondary to size/nature/number of polyps, sigmoid inflammatory changes making visualization somewhat difficult, limited bowel preparation, and spasticity/lack of relaxation. Complications:: No immediate Estimated blood obtained (mL): 1
[2020-12-20 11:54] VITALS: BP 120/64; PULSE 61; RESP 16; TEMP 36.3; O2SAT 94
[2020-12-20 12:04] VITALS: BP 103/69; PULSE 72; RESP 16; O2SAT 94
[2020-12-20 12:14] VITALS: BP 127/74; PULSE 73; RESP 16; O2SAT 94
[2020-12-20 12:24] VITALS: BP 137/94; PULSE 70; RESP 16; O2SAT 95
== END 2020-12-20 12:25 | disposition home or self-care (01) ==
LOC: OUTP 09:18
PROVIDERS: PCP Internal Medicine Adolescent Medicine; Visit Provider Surgery
PROC: 0DJD8ZZ Inspection of Lower Intestinal Tract, Via Natural or Artificial Opening Endoscopic (ICD-10-PCS; CPT 45385; principal; 2020-12-20 10:30)
DX: Z12.11 Encounter for screening for malignant neoplasm of colon (principal); K63.5 Polyp of colon; K62.1 Rectal polyp; E78.5 Hyperlipidemia, unspecified; I10 Essential (primary) hypertension; K75.9 Inflammatory liver disease, unspecified; M19.90 Unspecified osteoarthritis, unspecified site; E07.9 Disorder of thyroid, unspecified; Z85.3 Personal history of malignant neoplasm of breast; Z82.5 Family history of asthma and other chronic lower respiratory diseases; Z82.49 Family history of ischemic heart disease and other diseases of the circulatory system
CPT/HCPCS: 45385; 45380

== ENCOUNTER → 2021-02-12 09:03 | Outpatient (CLI) | payer OTHER, SELFPAY ==
[2021-02-12 09:38] LABS: Basophils # 0.1 K/mm3 (0-0.2); Basophils % 0.9 % (0.1-2.0); Eosinophils # 0.3 K/mm3 (0.0-0.4); Eosinophils % 4.3 % (0.1-12.0); Hematocrit 46.5 % (37.0-47.0); Hemoglobin 15.2 g/dL (12.2-16.2); Lymphocytes # 1.9 K/mm3 (0.7-4.5); Lymphocytes % 27.8 % (10-50); Mean Corpuscular HGB Conc 32.8 g/dL (31.8-35.4); Mean Corpuscular Hemoglobin 31.5 pg (27.0-31.2); Mean Corpuscular Volume 96.2 fl (81-99); Mean Platelet Volume 8.9 fl (7.4-10.4); Monocytes # 0.5 K/mm3 (0.1-1.0); Monocytes % 6.7 % (1.7-9.3); Neutrophils # 4.1 K/mm3 (1.8-7.8); Neutrophils % 60.3 % (37.0-80.0); Platelet Count 186 K/mm3 (142-424); Red Blood Count 4.83 M/mm3 (4.20-5.40); Red Cell Distribution Width 13.1 % (11.5-17.5); White Blood Count 6.8 K/mm3 (4.8-10.8)
[2021-02-12 10:07] LABS: Chloride 106 mmol/L (98-107); Sodium 143 mmol/L (136-145)
[2021-02-12 10:08] LABS: Potassium 5.2 mmoL/L (3.5-5.1)
[2021-02-12 10:10] LABS: Alanine Aminotransferase 21 U/L (12-78); Aspartate Amino Transferase 40 U/L (14-36); Blood Urea Nitrogen 21 mg/dl (7-17); Estimated Glomerular Filt Rate 34 ml/min (>60); GFR (African American) 41 ML/MIN (>60)
[2021-02-12 10:11] LABS: Albumin Level 3.9 g/dl (3.5-5.0); Albumin/Globulin Ratio 1.5 (1.1-1.8); Alkaline Phosphatase 88 U/L (38-126); Bilirubin,Total 0.4 mg/dl (0.2-1.3); Calcium 9.6 mg/dl (8.4-10.2); Carbon Dioxide 29 mmol/L (22.0-30.0); Globulin 2.6 g/dL (1.3-3.2); Glucose 102 mg/dl (74-100); Total Protein,Serum 6.5 g/dl (6.3-8.2)
[2021-02-12 14:52] LABS: Anion Gap 13.2 mEq/L (5-15)
== END ==
PROVIDERS: Visit Provider Internal Medicine Medical Oncology
DX: Z85.3 Personal history of malignant neoplasm of breast (principal)
CPT/HCPCS: 36415; 80053; 85025

== ENCOUNTER → 2021-04-23 09:03 | Outpatient (CLI) | payer OTHER, SELFPAY ==
--- NOTE | 2021-04-23 09:05 | XR_ITS ---
PROCEDURE: XR DEXA AXIAL SKELETON CLINICAL HISTORY: ASYMPTOMATIC POSTMENOPAUSAL STATE COMPARISON: CR DEXAAX XR DEXA axial skeleton from 07/27/2018 FINDINGS: The right hip BMD is 0.812 with a T-score of -0.3. The left hip BMD is 0.916 with a T-score of -0.2. The lumbar spine BMD is 1.439 with a T-score of 3.6. Previously the lowest bone density is in the right femoral neck with a T-score of 0.2 IMPRESSION: This patient is considered normal according to the World Health Organization criteria. Fracture risk is low. Based on these results a follow-up exam is recommended in 1 year. Dictated by: Barry Fairbanks MD 04/23/2021 15:58 Barry Fairbanks MD in [place] 04/23/2021 15:58
== END ==
PROVIDERS: PCP Internal Medicine Adolescent Medicine; Visit Provider Internal Medicine Adolescent Medicine
DX: Z13.820 Encounter for screening for osteoporosis (principal); Z78.0 Asymptomatic menopausal state
CPT/HCPCS: 77080

== ENCOUNTER → 2021-06-05 11:11 | Outpatient (CLI) | payer OTHER, SELFPAY ==
--- NOTE | 2021-06-05 11:16 | XR_ITS ---
FINAL REPORT CLINICAL HISTORY: BRONCHOPNEUMONIA cough, soa for 2 weeks FINDINGS: 2 views of the chest were obtained. The heart size is normal. The mediastinum is unremarkable. There are surgical clips in the right breast. The lungs are clear. There are no pleural effusions. There is no pneumothorax. There is no acute osseous abnormality. IMPRESSION: No acute cardiopulmonary process. Reviewed, Interpreted and Dictated by Andi Randolph MD Transcribed by Coleen Gonzáles Authenticated by Andi Randolph MD on 06/05/2021 01:08:22 PM [facility]
== END ==
PROVIDERS: PCP Internal Medicine Adolescent Medicine; Visit Provider Internal Medicine Adolescent Medicine
DX: J18.0 Bronchopneumonia, unspecified organism (principal)
CPT/HCPCS: 71046

== ENCOUNTER → 2021-06-20 13:12 | Outpatient (CLI) | payer OTHER, SELFPAY ==
[2021-06-20 14:00] LABS: Basophils # 0.1 K/mm3 (0-0.2); Basophils % 1.2 % (0.1-2.0); Eosinophils # 0.4 K/mm3 (0.0-0.4); Eosinophils % 4.1 % (0.1-12.0); Hematocrit 49.3 % (37.0-47.0); Hemoglobin 15.5 g/dL (12.2-16.2); Lymphocytes # 2.8 K/mm3 (0.7-4.5); Lymphocytes % 32.9 % (10-50); Mean Corpuscular HGB Conc 31.4 g/dL (31.8-35.4); Mean Corpuscular Hemoglobin 30.4 pg (27.0-31.2); Mean Corpuscular Volume 96.6 fl (81-99); Mean Platelet Volume 9.6 fl (7.4-10.4); Monocytes # 0.6 K/mm3 (0.1-1.0); Monocytes % 6.4 % (1.7-9.3); Neutrophils # 4.8 K/mm3 (1.8-7.8); Neutrophils % 55.3 % (37.0-80.0); Platelet Count 205 K/mm3 (142-424); Red Blood Count 5.11 M/mm3 (4.20-5.40); Red Cell Distribution Width 13.6 % (11.5-17.5); White Blood Count 8.6 K/mm3 (4.8-10.8)
[2021-06-20 14:15] LABS: Alanine Aminotransferase 21 U/L (12-78); Albumin Level 4.1 g/dl (3.5-5.0); Albumin/Globulin Ratio 1.7 (1.1-1.8); Alkaline Phosphatase 90 U/L (38-126); Anion Gap 12.1 mEq/L (5-15); Aspartate Amino Transferase 45 U/L (14-36); Bilirubin,Total 0.4 mg/dl (0.2-1.3); Blood Urea Nitrogen 24 mg/dl (7-17); Calcium 9.6 mg/dl (8.4-10.2); Carbon Dioxide 32 mmol/L (22.0-30.0); Chloride 100 mmol/L (98-107); Chol/HDL Ratio 4.2 (1-3.5); Cholesterol 158 mg/dl (140-200); Estimated Glomerular Filt Rate 34 ml/min (>60); GFR (African American) 41 ML/MIN (>60); Globulin 2.4 g/dL (1.3-3.2); Glucose 95 mg/dl (74-100); HDL Cholesterol 38 mg/dl (40-60); Potassium 4.1 mmoL/L (3.5-5.1); Sodium 140 mmol/L (136-145); Total Protein,Serum 6.5 g/dl (6.3-8.2); Triglycerides 138 mg/dl (30-150); VLDL Cholesterol 28 mg/dL (0-40)
[2021-06-20 14:27] LABS: Direct LDL Cholesterol 110.55 mg/dL (100-129)
[2021-06-20 14:45] LABS: Thyroid Stimulating Hormone 0.08 uIU/mL (0.465-4.68)
== END ==
PROVIDERS: Visit Provider Internal Medicine Adolescent Medicine
DX: E03.9 Hypothyroidism, unspecified (principal); E78.5 Hyperlipidemia, unspecified
CPT/HCPCS: 36415; 80053; 80061; 84443; 85025

== ENCOUNTER → 2021-07-10 10:05 | Outpatient (CLI) | payer OTHER, SELFPAY ==
--- NOTE | 2021-07-10 10:06 | MM_ITS ---
PROCEDURE INFORMATION: Exam: MG Bilateral Screening 3D Mammography Exam date and time: 07/10/2021 10:06 AM Age: 70 years old Clinical indication: Encounter for screening mammogram for malignant neoplasm of breast; history of right breast carcinoma treated with lumpectomy and radiation TECHNIQUE: Imaging protocol: Bilateral Screening tomosynthesis and 2D mammography including computer-aided detection (CAD) when performed. COMPARISON: 1. MG MM DIG SCREENING MAMM BI W/CAD 07/02/2020 8:08 AM 2. MG MM DIG SCREENING MAMM BI W/CAD 06/28/2019 9:15 AM 3. MG DIG MAMM-DX UNI-RT 12/06/2018 1:11 PM FINDINGS: MAMMOGRAPHY: Breast composition: There are scattered areas of fibroglandular density. Mass: No suspicious masses. Architectural distortion: No suspicious distortion. Relatively stable post lumpectomy changes in the right upper outer quadrant. Calcifications: No suspicious calcifications. Asymmetric density: None. Skin thickening: Relatively stable post radiation skin thickening in the right breast. Axillary adenopathy: None. IMPRESSION: No mammographic evidence of malignancy. Annual screening is recommended unless otherwise clinically indicated. ASSESSMENT: BI-RADS Category 2: Benign
== END ==
PROVIDERS: PCP Internal Medicine Adolescent Medicine; Visit Provider Surgery
DX: Z12.31 Encounter for screening mammogram for malignant neoplasm of breast (principal); Z85.3 Personal history of malignant neoplasm of breast
CPT/HCPCS: 77063; 77067

== ENCOUNTER → 2021-08-17 10:24 | Outpatient (CLI) | payer OTHER, SELFPAY | PROVIDERS: PCP Internal Medicine Adolescent Medicine; Visit Provider Surgery | DX: Z01.812 Encounter for preprocedural laboratory examination (principal); Z11.52 Encounter for screening for COVID-19; Z12.11 Encounter for screening for malignant neoplasm of colon; Z86.010 Personal history of colon polyps | CPT/HCPCS: C9803; U0003; U0005 ==

== ENCOUNTER 2021-08-20 11:59 | Day surgery (SDC) | payer OTHER, SELFPAY ==
[2021-08-19 11:39] VITALS: BMI 27.7
[2021-08-20] VITALS (7 sets, daily range): BP systolic 111–156; BP diastolic 56–91; PULSE 74–87; RESP 16–18; TEMP 36.8–36.9; O2SAT 93–96
--- NOTE | 2021-08-20 13:07 | P.PN_ITS ---
[facility] Anesthesia Checklist - Structural Data Admitted From: Home Planned Operative Procedure/s: colonoscopy Consent for Planned Operative Procedure(s) Verified: Yes - Additional verifications Anesthesia Reactions: No - Airway Assessment C-Spine Mobility Assessed: Yes TMJ Mobility Assessed: Yes Dentition: Good Dentition - Neurological Assessment Level of Consciousness: Awake, Alert, Appropriate - Anesthesia Plan Anesthesia Risk discussed: Yes Anesthesia Plan: Verified ASA Class: II Anesthesia Type: MAC [facility] History I have reviewed the patient's past medical history: Yes Medical History: Reports:: Cancer (breast), Hepatitis, Hyperlipidemia, Hypertension Denies:: Diabetes Mellitus Type 1, Diabetes Mellitus Type 2, Internal Pacemaker, MRSA, Seizures *Have you ever received a pneumonia vaccine?: Yes *Have you received a flu vaccine this season?: Yes Other Medical History: Reports: Arthritis, Hypothyroidism, Radiation Therapy Anesthesia experience/problems:: none Laterality Cases: Right: Breast Biopsy, Lumpectomy Other Surgeries: Yes: Cancer Surgery, Colonoscopy, Tubal Ligation. No: Pacemaker Amputation: No Fractures: No - *Social History Last grade of school completed: High school graduate Smoking Status: Never smoker Alcohol Intake: never Substance Use Type: denies use *Occupational Status:: unemployed Housing: house Household Members: spouse *Travel in the last 8 weeks: None Family Hx:: Asthma, Coronary Artery Disease, Tuberculosis
--- NOTE | 2021-08-20 13:14 | HMH.SCOPE ---
- Procedure: Date: 08/20/21 Patient Date of :: 1950 Procedure Performed:: Flexible sigmoidoscopy with polypectomy Indications:: History of colon polyps. History of multiple complex polyps. Most recent colonoscopy in November 2020 limited by bowel preparation, significant spasticity, and lack of relaxation. She did have adenomatous polyps excised at 60 cm, 35 cm, 15 cm, and at 7 cm. She now returns for short-term repeat evaluation. Performing Provider:: Mark Umana MD Referring Provider:: . Sedation:: Monitored anesthesia care Procedure:: After informed consent was obtained the patient was taken to the endoscopy suite. Sedation ensued after the patient was transferred to the left lateral decubitus position. Pulse, blood pressure, and oxygen saturation were monitored throughout the procedure. Digital rectal exam revealed no significant abnormality. The colonoscope was placed in position. A large polyp at [address] was excised by way of hot snare. The polyp was excised during insertion secondary to concerns of being able to visualize on removal of colonoscope. Secondary to size of the polyp removed upon insertion the decision was made to forego further advancement of the colonoscope due to increased risk of perforation. The colonoscope was carefully removed and the patient was transferred to recovery in stable condition. Please see findings and specimens below for detail. Findings:: Bowel preparation relatively fair Large complex, lobulated, partially-pedunculated polyp removed at 30 cm. Advancement of colonoscope beyond 30 cm not attempted secondary to increased risk of perforation status post removal of large polyp Specimens:: Complex, lobulated, and partially-pedunculated polyp at 30 cm (hot snare) Recommendations:: Repeat colonoscopy in approximately 3 months Complications:: No immediate Estimated blood obtained (mL): 1
== END 2021-08-20 14:15 | disposition home or self-care (01) ==
LOC: OUTP 12:00
PROVIDERS: PCP Internal Medicine Adolescent Medicine; Visit Provider Surgery
PROC: 0DJD8ZZ Inspection of Lower Intestinal Tract, Via Natural or Artificial Opening Endoscopic (ICD-10-PCS; CPT 45330; principal; 2021-08-20 13:30)
DX: K63.5 Polyp of colon (principal); Z86.010 Personal history of colon polyps; I10 Essential (primary) hypertension; Z85.3 Personal history of malignant neoplasm of breast; E78.5 Hyperlipidemia, unspecified; K75.9 Inflammatory liver disease, unspecified; M19.90 Unspecified osteoarthritis, unspecified site; E03.9 Hypothyroidism, unspecified; Z82.5 Family history of asthma and other chronic lower respiratory diseases; Z82.49 Family history of ischemic heart disease and other diseases of the circulatory system
CPT/HCPCS: 45385

== ENCOUNTER → 2021-09-23 09:37 | Outpatient (CLI) | payer OTHER, SELFPAY ==
[2021-09-23 10:02] LABS: Basophils # 0.1 K/mm3 (0-0.2); Basophils % 0.6 % (0.1-2.0); Eosinophils # 0.3 K/mm3 (0.0-0.4); Eosinophils % 3.8 % (0.1-12.0); Hemoglobin 14.3 g/dL (12.2-16.2); Lymphocytes # 2.3 K/mm3 (0.7-4.5); Lymphocytes % 25.1 % (10-50); Mean Corpuscular Hemoglobin 30.7 pg (27.0-31.2); Mean Corpuscular Volume 90.4 fl (81-99); Monocytes # 0.6 K/mm3 (0.1-1.0); Neutrophils # 5.7 K/mm3 (1.8-7.8); Neutrophils % 63.5 % (37.0-80.0); Platelet Count 185 K/mm3 (142-424); Red Blood Count 4.64 M/mm3 (4.20-5.40); Red Cell Distribution Width 13.7 % (11.5-17.5)
[2021-09-23 10:28] LABS: Anion Gap 9.1 mEq/L (5-15); Blood Urea Nitrogen 19 mg/dl (7-17); Calcium 9.4 mg/dl (8.4-10.2); Carbon Dioxide 32 mmol/L (22.0-30.0); Chloride 102 mmol/L (98-107); Estimated Glomerular Filt Rate 32 ml/min (>60); GFR (African American) 38 ML/MIN (>60); Glucose 101 mg/dl (74-100); Potassium 4.1 mmoL/L (3.5-5.1); Sodium 139 mmol/L (136-145)
[2021-09-23 10:58] LABS: Thyroid Stimulating Hormone 6.44 uIU/mL (0.465-4.68)
== END ==
PROVIDERS: Visit Provider Internal Medicine Adolescent Medicine
DX: E03.9 Hypothyroidism, unspecified (principal); M15.0 Primary generalized (osteo)arthritis
CPT/HCPCS: 36415; 80048; 84443; 85025

== ENCOUNTER → 2021-12-07 11:04 | Outpatient (CLI) | payer OTHER, SELFPAY | PROVIDERS: PCP Internal Medicine Adolescent Medicine; Visit Provider Surgery | DX: Z01.812 Encounter for preprocedural laboratory examination (principal); Z20.822 Contact with and (suspected) exposure to COVID-19; Z12.11 Encounter for screening for malignant neoplasm of colon | CPT/HCPCS: C9803; U0003; U0005 ==

== ENCOUNTER 2021-12-10 07:17 | Day surgery (SDC) | payer OTHER, SELFPAY ==
[2021-12-10 07:47] VITALS: BP 136/77; PULSE 66; RESP 20; TEMP 36.8; O2SAT 94; BMI 28.5
--- NOTE | 2021-12-10 07:47 | HMH.ANESCL ---
[facility] Anesthesia Checklist - Patient Identification Patient Identification: Arm Band - Structural Data Admitted From: Home Planned Operative Procedure/s: Colonoscopy Consent for Planned Operative Procedure(s) Verified: Yes - NPO Status Verified Time NPO: 01:00 (Prep) - Additional verifications Anesthesia Reactions: No - Airway Assessment C-Spine Mobility Assessed: Yes TMJ Mobility Assessed: Yes Dentition: Good Dentition - Neurological Assessment Level of Consciousness: Awake Hx Seizures: No Numbness or tingling in extremities: No - Anesthesia Plan Anesthesia Risk discussed: Yes Anesthesia Plan: Verified ASA Class: III Anesthesia Type: MAC [facility] History I have reviewed the patient's past medical history: Yes Medical History: Reports:: Cancer, Hyperlipidemia, Hypertension Denies:: Diabetes Mellitus Type 1, Diabetes Mellitus Type 2, Internal Pacemaker, MRSA, Seizures *Have you ever received a pneumonia vaccine?: No *Have you received a flu vaccine this season?: Yes Other Medical History: Reports: Arthritis, Hypothyroidism, Radiation Therapy Anesthesia experience/problems:: None Laterality Cases: Right: Breast Biopsy, Lumpectomy Other Surgeries: Yes: Cancer Surgery, Colonoscopy, Tubal Ligation. No: Pacemaker Amputation: No Fractures: No - *Social History Smoking Status: Never smoker Alcohol Intake: never Substance Use Type: denies use *Occupational Status:: unemployed Housing: house Household Members: spouse *Travel in the last 8 weeks: None Family Hx:: Asthma, Coronary Artery Disease, Tuberculosis
[2021-12-10 08:25] VITALS: O2SAT 94
--- NOTE | 2021-12-10 09:09 | P.PCN_ITS ---
- Procedure: Date: 12/10/21 Patient Date of :: 1950 Procedure Performed:: Colonoscopy with polypectomy Indications:: History of colon polyps NOTE: Colonoscopy in November 2020 significant for limited bowel preparation, spasticity, and lack of relaxation. Adenomatous polyps at 60 cm, 35 cm, 15 cm, and 7 cm were excised. Short-term repeat colonoscopy scheduled for August of this year was stopped after advancement to 30 cm. A complex lobulated and partially- pedunculated polyp at 30 cm was excised. Advancement of the colonoscope beyond this site was deemed unsafe secondary to increased risk of perforation. Performing Provider:: Mark Umana MD Referring Provider:: . Sedation:: Monitored anesthesia care Procedure:: After informed consent was obtained the patient was taken to the endoscopy suite. Sedation ensued after the patient was transferred to the left lateral decubitus position. Pulse, blood pressure, and oxygen saturation were monitored throughout the procedure. Digital rectal exam revealed no significant abnormality. The colonoscope was placed in position. The entire colon was evaluated. The colonoscope was carefully removed and the patient was transferred to recovery in stable condition. Please see findings and specimens below for detail. Findings:: Unchanged hemorrhoidal cushions/tags Bowel preparation relatively fair Moderate spasticity and tortuosity Polyps (see specimens) Specimens:: Periappendiceal polyp (cold biopsy forceps) Cecal polyp (cold biopsy forceps) Right colon polyp (cold biopsy forceps) Sessile lobulated polyp at 35 cm (cold snare) Recommendations:: Timing of repeat colonoscopy is pending pathology but will likely be between 2-3 years. Complications:: No immediate Estimated blood obtained (mL): 1
[2021-12-10 09:12] VITALS: BP 120/74; PULSE 58; RESP 16; TEMP 36.3; O2SAT 97
[2021-12-10 09:22] VITALS: BP 140/80; PULSE 53; RESP 16; O2SAT 100
[2021-12-10 09:32] VITALS: BP 151/83; PULSE 54; RESP 16; O2SAT 100
[2021-12-10 09:42] VITALS: BP 135/90; PULSE 55; RESP 16; TEMP 36.3; O2SAT 100
== END 2021-12-10 09:42 | disposition home or self-care (01) ==
LOC: OUTP 07:18
PROVIDERS: PCP Internal Medicine Adolescent Medicine; Visit Provider Surgery
PROC: 0DJD8ZZ Inspection of Lower Intestinal Tract, Via Natural or Artificial Opening Endoscopic (ICD-10-PCS; CPT 45380; principal; 2021-12-10 08:30)
DX: Z12.11 Encounter for screening for malignant neoplasm of colon (principal); K63.5 Polyp of colon; I10 Essential (primary) hypertension; E78.5 Hyperlipidemia, unspecified; M19.90 Unspecified osteoarthritis, unspecified site; E03.9 Hypothyroidism, unspecified
CPT/HCPCS: 45380; 45385

== ENCOUNTER → 2021-12-23 10:37 | Outpatient (CLI) | payer OTHER, SELFPAY ==
--- NOTE | 2021-12-23 10:41 | XR_ITS ---
FINAL REPORT CLINICAL HISTORY: pain COMPARISON: January 28, 2019 FINDINGS: AP, oblique and lateral views of the right foot were obtained. There is no acute fracture or dislocation. 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 There are superior and inferior calcaneal spurs. There is no acute soft tissue abnormality. IMPRESSION: No acute osseous abnormality of the right foot. Reviewed, Interpreted and Dictated by Ashtyn Austin MD Transcribed by Marlena Wakefield Authenticated and [facility]
[2021-12-23 11:35] LABS: Basophils # 0.1 K/mm3 (0-0.2); Basophils % 0.9 % (0.1-2.0); Eosinophils # 0.4 K/mm3 (0.0-0.4); Eosinophils % 5.4 % (0.1-12.0); Hemoglobin 14.7 g/dL (12.2-16.2); Lymphocytes # 2.3 K/mm3 (0.7-4.5); Lymphocytes % 30.2 % (10-50); Mean Corpuscular HGB Conc 33.4 g/dL (31.8-35.4); Mean Corpuscular Hemoglobin 30.8 pg (27.0-31.2); Mean Corpuscular Volume 92.4 fl (81-99); Mean Platelet Volume 8.8 fl (7.4-10.4); Monocytes # 0.5 K/mm3 (0.1-1.0); Monocytes % 7.1 % (1.7-9.3); Neutrophils # 4.3 K/mm3 (1.8-7.8); Neutrophils % 56.5 % (37.0-80.0); Platelet Count 194 K/mm3 (142-424); Red Blood Count 4.76 M/mm3 (4.20-5.40); Red Cell Distribution Width 13.3 % (11.5-17.5); White Blood Count 7.6 K/mm3 (4.8-10.8)
[2021-12-23 11:40] LABS: Chloride 106 mmol/L (98-107); Sodium 142 mmol/L (136-145)
[2021-12-23 11:42] LABS: Alanine Aminotransferase 27 U/L (12-78); Aspartate Amino Transferase 51 U/L (14-36); Blood Urea Nitrogen 21 mg/dl (7-17); Estimated Glomerular Filt Rate 34 ml/min (>60); GFR (African American) 41 ML/MIN (>60)
[2021-12-23 11:43] LABS: Albumin/Globulin Ratio 1.5 (1.1-1.8); Alkaline Phosphatase 92 U/L (38-126); Bilirubin,Total 0.3 mg/dl (0.2-1.3); Carbon Dioxide 30 mmol/L (22.0-30.0); Globulin 2.6 g/dL (1.3-3.2); Total Protein,Serum 6.6 g/dl (6.3-8.2)
[2021-12-23 11:48] LABS: Glucose 103 mg/dl (74-100)
[2021-12-23 11:49] LABS: C-Reactive Protein 4.2 mg/L (0-4)
[2021-12-23 11:59] LABS: Calcium 9.4 mg/dl (8.4-10.2)
[2021-12-23 12:26] LABS: Erythrocyte Sedimentation Rate 11 mm/hr (0-30)
== END ==
PROVIDERS: PCP Internal Medicine Adolescent Medicine; Visit Provider Podiatrist
DX: L60.3 Nail dystrophy (principal); L84 Corns and callosities; B35.1 Tinea unguium; M79.671 Pain in right foot
CPT/HCPCS: 36415; 73630; 80053; 85025; 85651; 86140; 87102; 87206; 87220

== ENCOUNTER → 2021-12-24 06:16 | Outpatient (CLI) | payer OTHER, SELFPAY | PROVIDERS: Visit Provider Podiatrist | DX: L60.3 Nail dystrophy (principal); L84 Corns and callosities ==

== ENCOUNTER → 2021-12-30 10:09 | Outpatient (CLI) | payer OTHER, SELFPAY ==
[2021-12-30 11:17] LABS: Alanine Aminotransferase 27 U/L (12-78); Albumin Level 3.7 g/dl (3.5-5.0); Albumin/Globulin Ratio 1.5 (1.1-1.8); Alkaline Phosphatase 101 U/L (38-126); Anion Gap 9.2 mEq/L (5-15); Aspartate Amino Transferase 47 U/L (14-36); Blood Urea Nitrogen 18 mg/dl (7-17); Calcium 9.3 mg/dl (8.4-10.2); Carbon Dioxide 29 mmol/L (22.0-30.0); Chloride 107 mmol/L (98-107); Estimated Glomerular Filt Rate 37 ml/min (>60); GFR (African American) 45 ML/MIN (>60); Globulin 2.4 g/dL (1.3-3.2); Glucose 87 mg/dl (74-100); Potassium 4.2 mmoL/L (3.5-5.1); Sodium 141 mmol/L (136-145); Total Protein,Serum 6.1 g/dl (6.3-8.2)
[2021-12-30 11:25] LABS: Bilirubin,Total < 0.1 mg/dl (0.2-1.3)
[2021-12-30 11:44] LABS: Thyroid Stimulating Hormone 0.51 uIU/mL (0.465-4.68)
== END ==
PROVIDERS: PCP Internal Medicine Adolescent Medicine; Visit Provider Internal Medicine Adolescent Medicine
DX: E03.9 Hypothyroidism, unspecified (principal); N18.30 Chronic kidney disease, stage 3 unspecified
CPT/HCPCS: 36415; 80053; 84443

== ENCOUNTER → 2022-02-26 09:52 | Outpatient (CLI) | payer OTHER, SELFPAY ==
[2022-02-26 11:06] LABS: Basophils # 0.1 K/mm3 (0-0.2); Basophils % 1.2 % (0.1-2.0); Eosinophils # 0.5 K/mm3 (0.0-0.4); Hematocrit 43.7 % (37.0-47.0); Hemoglobin 14.1 g/dL (12.2-16.2); Lymphocytes % 30.9 % (10-50); Mean Corpuscular HGB Conc 32.4 g/dL (31.8-35.4); Mean Corpuscular Hemoglobin 30.3 pg (27.0-31.2); Mean Corpuscular Volume 93.6 fl (81-99); Mean Platelet Volume 9.3 fl (7.4-10.4); Monocytes # 0.5 K/mm3 (0.1-1.0); Monocytes % 7.7 % (1.7-9.3); Neutrophils # 3.5 K/mm3 (1.8-7.8); Neutrophils % 53.4 % (37.0-80.0); Platelet Count 195 K/mm3 (142-424); Red Blood Count 4.67 M/mm3 (4.20-5.40); Red Cell Distribution Width 13.8 % (11.5-17.5); White Blood Count 6.5 K/mm3 (4.8-10.8)
[2022-02-26 11:24] LABS: Alanine Aminotransferase 29 U/L (12-78); Albumin Level 3.6 g/dl (3.5-5.0); Albumin/Globulin Ratio 1.4 (1.1-1.8); Alkaline Phosphatase 136 U/L (38-126); Aspartate Amino Transferase 48 U/L (14-36); Calcium 8.9 mg/dl (8.4-10.2); Carbon Dioxide 30 mmol/L (22.0-30.0); Chloride 104 mmol/L (98-107); Globulin 2.5 g/dL (1.3-3.2); Glucose 80 mg/dl (74-100); Sodium 141 mmol/L (136-145); Total Protein,Serum 6.1 g/dl (6.3-8.2)
[2022-02-26 11:40] LABS: Bilirubin,Total < 0.1 mg/dl (0.2-1.3); Blood Urea Nitrogen 17 mg/dl (7-17); Estimated Glomerular Filt Rate 40 ml/min (>60); GFR (African American) 49 ML/MIN (>60)
== END ==
PROVIDERS: PCP Internal Medicine Adolescent Medicine; Visit Provider Internal Medicine Medical Oncology
DX: C50.911 Malignant neoplasm of unspecified site of right female breast (principal); Z17.0 Estrogen receptor positive status [ER+]
CPT/HCPCS: 36415; 80053; 85025

== ENCOUNTER 2022-03-27 14:19 | Emergency (ER) | payer OTHER, SELFPAY ==
[2022-03-27] VITALS (8 sets, daily range): BP systolic 150–164; BP diastolic 71–87; PULSE 62–94; RESP 16–18; TEMP 36.4–36.7; O2SAT 95–97; BMI 29.0
--- NOTE | 2022-03-27 14:42 | ECG_ITS ---
APPROVED REPORT Exam: Resting ECG HR:75 bpm ECG Measurements Heart Rate 75 AXES AL 185 P 71 QRSd 107 QRS 41 QT 446 T 73 QTc 476 Conclusion SINUS RHYTHM SEPTAL MYOCARDIAL INFARCTION , PROBABLY OLD [40+ ms Q WAVE IN V1/V2] ABNORMAL ECG UNCONFIRMED REPORT Electronically signed by : Krishan Caldwell MD 03/27/2022 21:05:37
[2022-03-27 15:35] LABS: Basophils # 0.1 K/mm3 (0-0.2); Basophils % 0.7 % (0.1-2.0); Eosinophils # 0.1 K/mm3 (0.0-0.4); Eosinophils % 1.3 % (0.1-12.0); Hematocrit 47.8 % (37.0-47.0); Hemoglobin 14.5 g/dL (12.2-16.2); Lymphocytes # 1.5 K/mm3 (0.7-4.5); Lymphocytes % 16.9 % (10-50); Mean Corpuscular HGB Conc 30.2 g/dL (31.8-35.4); Mean Corpuscular Hemoglobin 29.5 pg (27.0-31.2); Mean Corpuscular Volume 97.6 fl (81-99); Mean Platelet Volume 9.1 fl (7.4-10.4); Monocytes # 0.3 K/mm3 (0.1-1.0); Monocytes % 3.7 % (1.7-9.3); Neutrophils # 6.8 K/mm3 (1.8-7.8); Neutrophils % 77.4 % (37.0-80.0); Platelet Count 175 K/mm3 (142-424); Red Cell Distribution Width 13.6 % (11.5-17.5); White Blood Count 8.8 K/mm3 (4.8-10.8)
[2022-03-27 15:40] LABS: Alanine Aminotransferase 32 U/L (12-78); Albumin/Globulin Ratio 1.4 (1.1-1.8); Alkaline Phosphatase 209 U/L (38-126); Anion Gap 18.1 mEq/L (5-15); Aspartate Amino Transferase 83 U/L (14-36); Bilirubin,Total 0.9 mg/dl (0.2-1.3); Blood Urea Nitrogen 18 mg/dl (7-17); Calcium 9.1 mg/dl (8.4-10.2); Carbon Dioxide 26 mmol/L (22.0-30.0); Chloride 99 mmol/L (98-107); Creatinine Clearance Estimated 44 mL/min (50-200); Estimated Glomerular Filt Rate 34 ml/min (>60); GFR (African American) 41 ML/MIN (>60); Globulin 2.8 g/dL (1.3-3.2); Glucose 189 mg/dl (74-100); Lipase 123 U/L (23-300); Potassium 4.1 mmoL/L (3.5-5.1); Sodium 139 mmol/L (136-145); Total Protein,Serum 6.8 g/dl (6.3-8.2)
[2022-03-27 15:57] LABS: Troponin I < 0.01 ng/ml (0.00-0.034)
--- NOTE | 2022-03-27 16:23 | CT_ITS ---
PROCEDURE INFORMATION: Exam: CT Head Without Contrast Exam date and time: 03/27/2022 4:32 PM Age: 71 years old Clinical indication: Dizziness; Additional info: Vertigo TECHNIQUE: Imaging protocol: Computed tomography of the head without contrast. Radiation optimization: All CT scans at this facility use at least one of these dose optimization techniques: automated exposure control; mA and/or kV adjustment per patient size (includes targeted exams where dose is matched to clinical indication); or iterative reconstruction. COMPARISON: [facility] CT cervical spine wo con 04/28/2018 10:29 AM FINDINGS: Brain: There is no acute intracranial hemorrhage, cerebral edema, or midline shift. Age-related cerebral and cerebellar volume loss is present. Cerebral ventricles: No hydrocephalus. Paranasal sinuses: Minimal mucosal thickening is present in the maxillary sinuses. Mastoid air cells: Visualized mastoid air cells are well aerated. Orbital cavities: The visualized orbits appear unremarkable. Bones/joints: No acute fracture. Soft tissues: Unremarkable. Vasculature: Atherosclerotic calcifications are seen involving the cavernous carotid arteries. IMPRESSION: No acute intracranial abnormality.
--- NOTE | 2022-03-27 16:45 | HMH.EDGENADL ---
Discharge Plan Disposition Patient Disposition: Home, Self-Care Condition: Fair Prescriptions Prescriptions: New ondansetron 4 mg tablet,disintegrating 4 mg PO Q8H PRN (Reason: nausea and vomiting) Qty: 10 0RF meclizine 25 mg tablet 25 mg PO TID PRN (Reason: Vertigo) Qty: 15 0RF No Action gabapentin 300 mg capsule 300 mg PO BID PRN (Reason: pain) bisoprolol fumarate 10 mg tablet 10 mg PO DAILY gentamicin 0.1 % cream 1 applic TP TID 21 Days Qty: 15 1RF levothyroxine 112 mcg tablet 112 mcg PO DAILY Label Comments: TAKE 1 TABLET BY MOUTH EVERY DAY FOR 90 DAYS naproxen 500 mg tablet 500 mg PO DAILY pravastatin 40 mg tablet 40 mg PO QHS amlodipine 10 mg tablet 10 mg PO DAILY Qty: 90 Label Comments: TAKE 1 TABLET BY MOUTH EVERY DAY tamoxifen 20 mg tablet 20 mg PO DAILY hydrochlorothiazide 25 MG tablet 25 mg PO DAILY hydroxyzine HCl 25 MG tablet 25 mg PO BID PRN (Reason: .) Referrals Follow up/Referrals: Krishan Caldwell MD [Primary Care Provider] - See instructions Activity Restrictions/Add. Instructions Additional Instructions/Restrictions: Phenergan take-home pack as prescribed. Zofran as prescribed for vomiting. Meclizine as prescribed. Follow-up with primary care provider, call tomorrow to make appointment. Return to the emergency department if symptoms worsen. Follow-up with your primary care provider for elevated blood sugar. Clinical Impressions Clinical Impression: Vertigo, Acute hyperglycemia Discharge ED Provider: Bernardo Laws General Adult HPI General Chief complaint: Dizziness Stated complaint: vomiting, dizzness Time Seen by Provider: 03/27/22 16:15 Mode of Arrival: Wheelchair Source of Information: Patient Limitations: No Limitations Description of Symptoms (Recalled from ER Triage Doc. by RN): Pt c/o dizziness and vomitting that began approx 11 am this morning. Pt reports when she woke up she felt normal this morning. History of Present Illness HPI narrative: Patient states that around 1030 this morning she began having dizziness which she describes as the room spinning. Associated with vomiting. States that she is fine when she lays down but when she tries to get up and move around symptoms recur. Denies headache. She says she has had visual disturbance. She says when the room was spinning she thought she was seeing double, but is not having diplopia or any blurry visual disturbance currently. Denies numbness or weakness of the extremities. Denies any speech difficulty. She has had vertigo off and on over the years, she has a prescription for meclizine. She tried to take a meclizine today but vomited it up. She also thinks her prescription is . She says she does not have to take it often. This is the worst brain dizziness she has had. She is currently being treated for breast cancer. Daughter also states that the patient is not diabetic, but they have been checking her blood sugar lately with glucose monitor that belongs to her and her blood sugar has been elevated in the 1 70-1 80 range. She also states that her mother has been generally weak recently. Related Data Home Medications Medication Instructions Recorded Confirmed pravastatin 40 mg tablet 40 mg PO QHS Cholesterol 06/23/17 02/27/22 amlodipine 10 mg tablet 10 mg PO DAILY bp #90 tabs 03/28/19 02/27/22 gabapentin 300 mg capsule 300 mg PO BID PRN pain 03/28/19 02/27/22 bisoprolol fumarate 10 mg tablet 10 mg PO DAILY bp 01/26/20 02/27/22 hydrochlorothiazide 25 mg tablet 25 mg PO DAILY Fluid 12/18/20 02/27/22 hydroxyzine HCl 25 mg tablet 25 mg PO BID PRN . 12/10/21 02/27/22 levothyroxine 112 mcg tablet 112 mcg PO DAILY 01/13/22 02/27/22 naproxen 500 mg tablet 500 mg PO DAILY 01/13/22 02/27/22 tamoxifen 20 mg tablet 20 mg PO DAILY 02/27/22 02/27/22 Previous Rx's Medication Instructions Recorded krystyna
[2022-03-27 16:54] LABS: Hemoglobin A1C 6.2 % (4.0-6.0)
--- NOTE | 2022-03-27 17:01 | PC.NURSE ---
pt report wants to wait a few minutes until nausea medication kicks in before taking meclizine
--- NOTE | 2022-03-27 18:25 | PC.NURSE ---
assisted pt to restroom at this time. pt ambulated well, pt reports feeling some better
--- NOTE | 2022-03-27 19:15 | PC.NURSE ---
KHURRAM Dillon at to reassess pt and go over POC
== END 2022-03-27 20:31 | disposition home or self-care (01) ==
PROVIDERS: Emergency Provider Emergency Medicine; PCP Internal Medicine Adolescent Medicine
DX: R42 Dizziness and giddiness (principal); R73.9 Hyperglycemia, unspecified; Z79.899 Other long term (current) drug therapy; Z88.8 Allergy status to other drugs, medicaments and biological substances; C50.919 Malignant neoplasm of unspecified site of unspecified female breast; M19.071 Primary osteoarthritis, right ankle and foot; M20.11 Hallux valgus (acquired), right foot
CPT/HCPCS: 70450; 80053; 83036; 83690; 84484; 85025; 93005; 99284

== ENCOUNTER → 2022-04-02 10:55 | Outpatient (CLI) | payer OTHER, SELFPAY ==
[2022-04-02 12:45] LABS: Alanine Aminotransferase 28 U/L (12-78); Albumin/Globulin Ratio 1.7 (1.1-1.8); Alkaline Phosphatase 139 U/L (38-126); Aspartate Amino Transferase 52 U/L (14-36); Bilirubin,Total 0.2 mg/dl (0.2-1.3); Blood Urea Nitrogen 15 mg/dl (7-17); Calcium 9.7 mg/dl (8.4-10.2); Carbon Dioxide 30 mmol/L (22.0-30.0); Estimated Glomerular Filt Rate 34 ml/min (>60); GFR (African American) 41 ML/MIN (>60); Globulin 2.4 g/dL (1.3-3.2); Glucose 90 mg/dl (74-100); Total Protein,Serum 6.4 g/dl (6.3-8.2)
[2022-04-02 12:46] LABS: Magnesium 1.8 mg/dl (1.6-2.3)
[2022-04-02 13:00] LABS: Anion Gap 16.1 mEq/L (5-15); Chloride 99 mmol/L (98-107); Potassium 4.1 mmoL/L (3.5-5.1); Sodium 141 mmol/L (136-145)
[2022-04-02 13:35] LABS: Thyroid Stimulating Hormone 1.03 uIU/mL (0.465-4.68)
[2022-04-02 15:13] LABS: Hemoglobin A1C 6.2 % (4.0-6.0)
== END ==
PROVIDERS: PCP Internal Medicine Adolescent Medicine; Visit Provider Internal Medicine Adolescent Medicine
DX: R42 Dizziness and giddiness (principal); R73.9 Hyperglycemia, unspecified; E03.9 Hypothyroidism, unspecified
CPT/HCPCS: 36415; 80053; 83036; 83735; 84443

== ENCOUNTER → 2022-07-11 09:40 | Outpatient (CLI) | payer OTHER, SELFPAY ==
--- NOTE | 2022-07-11 09:42 | MM_ITS ---
PROCEDURE INFORMATION: Exam: MG Bilateral Screening 3D Mammography Exam date and time: 07/11/2022 9:43 AM Age: 71 years old Clinical indication: Screening examination. History of right breast cancer TECHNIQUE: Imaging protocol: Bilateral Screening tomosynthesis and 2D mammography including computer-aided detection (CAD) when performed. COMPARISON: 1. MG MM DIG SCREENING MAMM BI W/CAD 07/10/2021 10:18 AM 2. MG MM DIG SCREENING MAMM BI W/CAD 07/02/2020 8:08 AM FINDINGS: MAMMOGRAPHY: Breast composition: There are scattered areas of fibroglandular density. Mass: None. Architectural distortion: Stable post operative architectural distortion in the right 12 o'clock axis due to prior lumpectomy for carcinoma. Calcifications: No suspicious calcifications. Asymmetric density: None. Skin thickening: Diffuse skin thickening on the right is due to radiation change Axillary adenopathy: None. IMPRESSION: No mammographic evidence of malignancy. Annual screening is recommended unless otherwise clinically indicated. ASSESSMENT: BI-RADS Category 2: Benign
== END ==
PROVIDERS: PCP Internal Medicine Adolescent Medicine; Visit Provider Surgery
DX: Z12.31 Encounter for screening mammogram for malignant neoplasm of breast (principal)
CPT/HCPCS: 77063; 77067

== ENCOUNTER 2022-08-23 11:02 | Emergency (ER) | payer OTHER, SELFPAY ==
[2022-08-23 11:20] VITALS: BP 168/78; PULSE 67; RESP 20; TEMP 36.9; O2SAT 95; BMI 28.7
--- NOTE | 2022-08-23 11:31 | EXP.UTC ---
Discharge Plan Disposition Patient Disposition: Home, Self-Care Condition: Good Prescriptions Prescriptions: New amoxicillin [amoxicillin] 875 mg tablet 875 mg PO Q12H Qty: 20 0RF benzonatate [benzonatate] 100 mg capsule 100 mg PO TIDP PRN (Reason: Cough) Qty: 30 0RF guaifenesin [Mucinex] 600 mg tablet extended release 12hr 600 - 1,200 mg PO BIDP PRN (Reason: Congestion) Qty: 30 0RF methylprednisolone 4 mg Tablets,Dose Pack 4 mg PO DIRECTED Qty: 21 0RF No Action gabapentin 300 mg capsule 300 mg PO BID PRN (Reason: pain) bisoprolol fumarate 10 mg tablet 10 mg PO DAILY gentamicin 0.1 % cream 1 applic TP TID 21 Days Qty: 15 1RF levothyroxine 112 mcg tablet 112 mcg PO DAILY Label Comments: TAKE 1 TABLET BY MOUTH EVERY DAY FOR 90 DAYS naproxen 500 mg tablet 500 mg PO DAILY metformin 500 mg tablet 500 mg PO Label Comments: TAKE 1 TABLET BY MOUTH EVERY DAY FOR 30 DAYS glimepiride 2 mg tablet 2 mg PO Label Comments: TAKE 1 TABLET BY MOUTH EVERY MORNING WITH FOOD pravastatin 40 mg tablet 40 mg PO QHS amlodipine 10 mg tablet 10 mg PO DAILY Qty: 90 Label Comments: TAKE 1 TABLET BY MOUTH EVERY DAY tamoxifen 20 mg tablet 20 mg PO DAILY hydrochlorothiazide 25 MG tablet 25 mg PO DAILY ondansetron 4 mg tablet,disintegrating 4 mg PO Q8H PRN (Reason: nausea and vomiting) Qty: 10 0RF meclizine 25 mg tablet 25 mg PO TID PRN (Reason: Vertigo) Qty: 15 0RF hydroxyzine HCl 25 MG tablet 25 mg PO BID PRN (Reason: .) Referrals Follow up/Referrals: Krishan Caldwell MD [Primary Care Provider] - See instructions Activity Restrictions/Add. Instructions Additional Instructions/Restrictions: Drink plenty of fluids. Take tylenol or ibuprofen for pain or fever. Take the medications as directed. Follow up with your regular doctor. GO TO THE ER FOR ANY WORSENING SYMPTOMS Clinical Impressions Clinical Impression: Laryngitis, Sinusitis, Bronchitis Instructions Patient Instructions: DI for Sinusitis, DI for Acute Bronchitis, DI for Laryngitis Discharge ED Provider: Jerry Dewey [facility] General Stated complaint: cough, no voice,congested Time Seen by Provider: 08/23/22 11:30 History of Present Illness Provider Complaint: She c/o chest congestion, sinus congestion, sore throat, hoarse voice, and productive cough with yellowish sputum for the past 5 days. Related Data Home Medications Medication Instructions Recorded Confirmed pravastatin 40 mg tablet 40 mg PO QHS Cholesterol 06/23/17 07/24/22 amlodipine 10 mg tablet 10 mg PO DAILY bp #90 tabs 03/28/19 07/24/22 gabapentin 300 mg capsule 300 mg PO BID PRN pain 03/28/19 07/24/22 bisoprolol fumarate 10 mg tablet 10 mg PO DAILY bp 01/26/20 07/24/22 hydrochlorothiazide 25 mg tablet 25 mg PO DAILY Fluid 12/18/20 07/24/22 hydroxyzine HCl 25 mg tablet 25 mg PO BID PRN . 12/10/21 07/24/22 levothyroxine 112 mcg tablet 112 mcg PO DAILY 01/13/22 07/24/22 naproxen 500 mg tablet 500 mg PO DAILY 01/13/22 07/24/22 tamoxifen 20 mg tablet 20 mg PO DAILY 02/27/22 07/24/22 glimepiride 2 mg tablet 2 mg PO 07/23/22 07/24/22 metformin 500 mg tablet 500 mg PO 07/23/22 07/24/22 Previous Rx's Medication Instructions Recorded gentamicin 0.1 % topical cream 1 applic topical TID 3 weeks #15 12/24/21 grams meclizine 25 mg tablet 25 mg PO TID PRN Vertigo #15 tabs 03/27/22 ondansetron 4 mg disintegrating 4 mg PO Q8H PRN nausea and 03/27/22 tablet vomiting #10 tabs amoxicillin 875 mg tablet 875 mg PO Q12H #20 tabs 08/23/22 benzonatate 100 mg capsule 100 mg PO TIDP PRN Cough #30 caps 08/23/22 guaifenesin 600 mg tablet, 600 - 1,200 mg PO BIDP PRN 08/23/22 extended release 12 hr (Mucinex) Congestion #30 tabs methylprednisolone 4 mg tablets in 4 mg PO DIRECTED #21 tabs 08/23/22 a dose pack Allergies Allergy/AdvReac Type Severity Reaction
[2022-08-23 12:11] VITALS: BP 168/78; PULSE 67; RESP 20; TEMP 36.9; O2SAT 95
== END 2022-08-23 12:11 | disposition home or self-care (01) ==
PROVIDERS: Emergency Provider Nurse Practitioner Family; PCP Internal Medicine Adolescent Medicine
DX: J20.9 Acute bronchitis, unspecified (principal); J01.90 Acute sinusitis, unspecified; J04.0 Acute laryngitis
CPT/HCPCS: 96372; 99212; 99214; G0463

== ENCOUNTER → 2022-11-03 09:43 | Outpatient (CLI) | payer OTHER, SELFPAY ==
[2022-11-03 11:03] LABS: Basophils # 0.1 K/mm3 (0-0.2); Basophils % 0.6 % (0.1-2.0); Eosinophils # 0.3 K/mm3 (0.0-0.4); Eosinophils % 3.7 % (0.1-12.0); Hematocrit 42.8 % (37.0-47.0); Hemoglobin 13.7 g/dL (12.2-16.2); Lymphocytes # 2.4 K/mm3 (0.7-4.5); Lymphocytes % 30.2 % (10-50); Mean Corpuscular Hemoglobin 30.3 pg (27.0-31.2); Mean Corpuscular Volume 94.7 fl (81-99); Mean Platelet Volume 10.2 fl (7.4-10.4); Monocytes # 0.6 K/mm3 (0.1-1.0); Neutrophils # 4.5 K/mm3 (1.8-7.8); Neutrophils % 57.6 % (37.0-80.0); Platelet Count 173 K/mm3 (142-424); Red Blood Count 4.52 M/mm3 (4.20-5.40); Red Cell Distribution Width 14.2 % (11.5-17.5); White Blood Count 7.9 K/mm3 (4.8-10.8)
[2022-11-03 11:13] LABS: Hemoglobin A1C 5.9 % (4.0-6.0)
[2022-11-03 11:23] LABS: Alanine Aminotransferase 28 U/L (12-78); Albumin Level 3.7 g/dl (3.5-5.0); Albumin/Globulin Ratio 1.4 (1.1-1.8); Alkaline Phosphatase 110 U/L (38-126); Anion Gap 14.1 mEq/L (5-15); Aspartate Amino Transferase 53 U/L (14-36); Bilirubin,Total 0.6 mg/dl (0.2-1.3); Blood Urea Nitrogen 19 mg/dl (7-17); Calcium 9.4 mg/dl (8.4-10.2); Carbon Dioxide 27 mmol/L (22.0-30.0); Chloride 106 mmol/L (98-107); Chol/HDL Ratio 4.8 (1-3.5); Cholesterol 138 mg/dl (140-200); Estimated Glomerular Filt Rate 34 ml/min (>60); GFR (African American) 41 ML/MIN (>60); Globulin 2.6 g/dL (1.3-3.2); Glucose 71 mg/dl (74-100); HDL Cholesterol 29 mg/dl (40-60); Potassium 4.1 mmoL/L (3.5-5.1); Sodium 143 mmol/L (136-145); Total Protein,Serum 6.3 g/dl (6.3-8.2); Triglycerides 208 mg/dl (30-150); VLDL Cholesterol 42 mg/dL (0-40)
[2022-11-03 11:53] LABS: Thyroid Stimulating Hormone 0.08 uIU/mL (0.465-4.68)
[2022-11-03 13:16] LABS: Direct LDL Cholesterol 82.45 mg/dL (100-129)
== END ==
PROVIDERS: PCP Internal Medicine Adolescent Medicine; Visit Provider Internal Medicine Adolescent Medicine
DX: E03.9 Hypothyroidism, unspecified (principal); E78.5 Hyperlipidemia, unspecified; E11.40 Type 2 diabetes mellitus with diabetic neuropathy, unspecified; G60.9 Hereditary and idiopathic neuropathy, unspecified; M19.90 Unspecified osteoarthritis, unspecified site; Z79.84 Long term (current) use of oral hypoglycemic drugs
CPT/HCPCS: 36415; 80053; 80061; 83036; 84443; 85025

== ENCOUNTER → 2023-02-25 10:40 | Outpatient (CLI) | payer OTHER, SELFPAY ==
[2023-02-25 12:56] LABS: Alanine Aminotransferase 34 U/L (12-78); Albumin Level 3.9 g/dl (3.5-5.0); Albumin/Globulin Ratio 1.3 (1.1-1.8); Alkaline Phosphatase 103 U/L (38-126); Anion Gap 16.3 mEq/L (5-15); Aspartate Amino Transferase 57 U/L (14-36); Bilirubin,Total 0.4 mg/dl (0.2-1.3); Blood Urea Nitrogen 14 mg/dl (7-17); Calcium 9.6 mg/dl (8.4-10.2); Carbon Dioxide 26 mmol/L (22.0-30.0); Chloride 106 mmol/L (98-107); Estimated Glomerular Filt Rate 32 ml/min (>60); GFR (African American) 38 ML/MIN (>60); Glucose 90 mg/dl (74-100); Potassium 4.3 mmoL/L (3.5-5.1); Sodium 144 mmol/L (136-145); Total Protein,Serum 6.9 g/dl (6.3-8.2)
[2023-02-26 11:49] LABS: Basophils % 0.4 % (0.1-2.0); Eosinophils # 0.2 K/mm3 (0.0-0.4); Eosinophils % 2.6 % (0.1-12.0); Hematocrit 47.1 % (37.0-47.0); Hemoglobin 14.1 g/dL (12.2-16.2); Lymphocytes # 2.1 K/mm3 (0.7-4.5); Lymphocytes % 26.8 % (10-50); Mean Corpuscular Hemoglobin 30.2 pg (27.0-31.2); Mean Corpuscular Volume 100.7 fl (81-99); Mean Platelet Volume 11.5 fl (7.4-10.4); Monocytes # 0.5 K/mm3 (0.1-1.0); Monocytes % 6.5 % (1.7-9.3); Neutrophils # 4.9 K/mm3 (1.8-7.8); Neutrophils % 63.6 % (37.0-80.0); Platelet Count 159 K/mm3 (142-424); Red Blood Count 4.67 M/mm3 (4.20-5.40); Red Cell Distribution Width 14.1 % (11.5-17.5); White Blood Count 7.7 K/mm3 (4.8-10.8)
== END ==
PROVIDERS: PCP Internal Medicine Adolescent Medicine; Visit Provider Internal Medicine Medical Oncology
DX: C50.911 Malignant neoplasm of unspecified site of right female breast (principal)
CPT/HCPCS: 36415; 80053; 85025

== ENCOUNTER 2023-05-30 10:49 | Inpatient (IN) | payer MEDICARE, OTHER, SELFPAY ==
[2023-05-30] VITALS (15 sets, daily range): BP systolic 108–181; BP diastolic 56–97; PULSE 80–110; RESP 12–34; TEMP 36.6–38.1; O2SAT 89–97; BMI 29.0
--- NOTE | 2023-05-30 11:04 | CT_ITS ---
PROCEDURE INFORMATION: Exam: CT Abdomen And Pelvis With Contrast Exam date and time: 05/30/2023 11:42 AM Age: 72 years old Clinical indication: Nausea and vomiting; Additional info: Vomiting suybacute, previous malignancy TECHNIQUE: Imaging protocol: Computed tomography of the abdomen and pelvis with contrast. Radiation optimization: All CT scans at this facility use at least one of these dose optimization techniques: automated exposure control; mA and/or kV adjustment per patient size (includes targeted exams where dose is matched to clinical indication); or iterative reconstruction. Contrast material: ISOVUE; Contrast volume: 75 ml; Contrast route: IV; REPORTING DATA: Count of CT and Cardiac NM exams in prior 12 months: This patient has received 0 known CTs and 0 known cardiac nuclear medicine studies in the 12 months prior to the current study. COMPARISON: CT ANGIO CHEST PE PROTOCOL 05/30/2023 11:42 AM FINDINGS: Limitations: Mild motion artifact. Lungs: Calcified right lung base granuloma. Calcified infrahilar granulomata. Liver: Normal. No mass. Gallbladder and bile ducts: Stones in the gallbladder. Pancreas: Normal. No ductal dilation. Spleen: Calcified splenic granulomata. Adrenal glands: Normal. No mass. Kidneys and ureters: Atrophic right kidney. 6 mm simple appearing right kidney cyst. 2 mm nonobstructing left kidney calcification. Stomach and bowel: Unremarkable. No obstruction. No mucosal thickening. Appendix: No evidence of appendicitis. Intraperitoneal space: Unremarkable. No free air. No significant fluid collection. Vasculature: Atherosclerosis. Lymph nodes: Unremarkable. No enlarged lymph nodes. Urinary bladder: Unremarkable as visualized. Reproductive: Unremarkable as visualized. Bones/joints: Degenerative changes of the spine. Grade 1 anterolisthesis of L4 on L5. Soft tissues: Unremarkable. IMPRESSION: 1. Stones in the gallbladder. 2. Atrophic right kidney. 6 mm simple appearing right kidney cyst. 3. 2 mm nonobstructing left kidney calcification. 4. Atherosclerosis. 5. Degenerative changes of the spine. Grade 1 anterolisthesis of L4 on L5. 6. Evidence of prior granulomatous disease. COMMENTS: Consistent with the [employer]'s Incidental Findings Committee white paper (J Am Venkat Radiol 2018): Any incidental renal lesion less than 1 cm or classified as too small to characterize, or any incidental cystic renal lesion characterized as simple-appearing, is likely benign. No follow-up imaging is recommended for these lesions per consensus recommendations based on imaging criteria.
--- NOTE | 2023-05-30 11:04 | CT_ITS ---
PROCEDURE INFORMATION: Exam: CTA Chest With Contrast Exam date and time: 05/30/2023 11:42 AM Age: 72 years old Clinical indication: Cough and shortness of breath; Additional info: SOB, tachy, previous breast cancer TECHNIQUE: Imaging protocol: Computed tomographic angiography of the chest with contrast. Exam focused on the arteries. 3D rendering (Not supervised by radiologist): MIP and/or 3D reconstructed images were created by the technologist. Radiation optimization: All CT scans at this facility use at least one of these dose optimization techniques: automated exposure control; mA and/or kV adjustment per patient size (includes targeted exams where dose is matched to clinical indication); or iterative reconstruction. Contrast material: ISOVUE 370; Contrast volume: 75 ml; Contrast route: INTRAVENOUS (IV); REPORTING DATA: Count of CT and Cardiac NM exams in prior 12 months: This patient has received 0 known CTs and 0 known cardiac nuclear medicine studies in the 12 months prior to the current study. COMPARISON: CR XR CHEST 2V 06/05/2021 11:18 AM FINDINGS: Pulmonary arteries: No pulmonary embolism. Great vessels off aortic arch: Supra-aortic great vessel atherosclerosis. Aorta: Aortic atherosclerosis. Lungs: Calcified right lung base granuloma. Pleural spaces: Unremarkable. No pneumothorax. No pleural effusion. Heart: Unremarkable. No cardiomegaly. No pericardial effusion. Coronary arteries: Coronary artery atherosclerosis. Lymph nodes: Calcified infracarinal granulomata. No enlarged lymph nodes. Gallbladder and bile ducts: Stones in the gallbladder. Spleen: Calcified splenic granulomata. Bones/joints: Degenerative changes of the spine. Soft tissues: Right breast clips. IMPRESSION: 1. No pulmonary embolism. 2. Atherosclerosis, including the coronary arteries. 3. Stones in the gallbladder. 4. Evidence of prior granulomatous disease.
--- NOTE | 2023-05-30 11:06 | ED_ITS ---
Discharge Plan Disposition Patient Disposition: Admitted Clinical Impressions Clinical Impression: Influenza A, Non-ST elevation [place] (NSTEMI) Discharge ED Provider: Edil Morales General Adult HPI General Chief complaint: Nausea/Vomiting/Diarrhea Stated complaint: fever 102 cough congestion vomiting dizziness Time Seen by Provider: 05/30/23 11:01 History of Present Illness HPI narrative: Patient is a 72-year-old female past medical history of previous breast cancer, hypertension, hyperlipidemia who presents emergency department for evaluation of multiple complaints. Patient has had subacute cough and shortness of breath over the last few weeks. She has recently developed nonbloody nonbilious vomiting with decreased p.o. intake and fever at home. Given that she presents here for continued evaluation. No chest pain. Related Data Home Medications Medication Instructions Recorded Confirmed pravastatin 40 mg tablet 40 mg PO HS Cholesterol 06/23/17 05/30/23 amlodipine 10 mg tablet 10 mg PO DAILY High Blood Pressure 03/28/19 05/30/23 #90 tabs bisoprolol fumarate 10 mg tablet 10 mg PO DAILY High Blood Pressure 01/26/20 05/30/23 hydrochlorothiazide 25 mg tablet 25 mg PO DAILY Fluid 12/18/20 05/30/23 levothyroxine 112 mcg tablet 112 mcg PO DAILYDM THYROID 01/13/22 05/30/23 naproxen 500 mg tablet 500 mg PO BIDP PRN Mild Pain 01/13/22 05/30/23 (Scale Score 1-4) tamoxifen 20 mg tablet 20 mg PO DAILY CHEMOTHERAPY 02/27/22 05/30/23 glimepiride 2 mg tablet 2 mg PO DAILYDM Diabetes 07/23/22 05/30/23 metformin 500 mg tablet 500 mg PO DAILYDM Diabetes 07/23/22 05/30/23 hydroxyzine pamoate 25 mg capsule 25 mg PO TIDP PRN Itching 05/30/23 05/30/23 Allergies Allergy/AdvReac Type Severity Reaction Status Date / Time niacin [NIACIN] Allergy Intermediate I-RASH Verified 02/27/23 10:03 [facility] Disclaimer: The information contained in this section may have been updated after the patient was seen, as this information can be updated by other users. Medical History Breast cancer Surgical History History of breast biopsy History of colonoscopy Family History (Updated 05/30/23 @ 15:24 by Peri Rhodes, RN) Other No significant family history Social History (Updated 05/30/23 @ 15:25 by Peri Rhodes RN) Smoking Status: Never smoker second hand exposure: No alcohol intake: never counseling provided: none substance use type: denies use current occupational status: retired Travel in the last 8 weeks: None household members: spouse housing: house current occupational exposures/hazards: No caffeine: Yes ROS Obtained: Yes Systems reviewed as appropriate & no additional complaints except as documented Physical Exam General General appearance: alert and in no apparent distress Head Head exam: atraumatic and normocephalic Eye Eye exam: Present PERRL and EOMI ENT ENT exam: Present mucous membranes moist Neck Neck exam: Present normal inspection Chest Chest inspection: Present normal inspection and symmetric chest wall rise Respiratory Respiratory exam: Present normal lung sounds bilaterally; Absent respiratory distress Cardiovascular Cardiovascular exam: Present normal rhythm and tachycardia Abdominal Exam Abdominal exam: Present soft; Absent tenderness Extremities Exam Extremities exam: Present normal inspection Neurological Exam Neurological exam: Present alert Psychiatric Psychiatric exam: Present normal affect Skin Skin exam: Present warm and dry Medical Decision Making Hollis Inquiry Pt receiving controlled substance: No Vital Signs: 05/30/23 10:51 05/30/23 12:29 05/30/23 12:42 Temperature 99.6 F Temperature Source Oral Pulse Rate 106 H 89 Pulse Rate [Left] 108 H Respiratory Rate 20 21 19 Blood Pressure 173/97 H 163/89 H Blood Pressure [Left Arm] 181/87 H Blood Pressure Mean [Left Arm] 118 Blood Pressure Source [Left Arm] Automatic Cuff Blood Pressure Position [Left Arm] 02 Sat by Pulse Oximetry 96 97 92 L Oxygen Delivery Method Room Air Room Air Room Air 05/30/23 13:00 05/30/23 14:24 05/30/23 14:00 Temperature 98.7 F 97.9 F Temperature Source Oral Oral Pulse Rate 88 82 Pulse Rate [Left] 80 Respiratory Rate 12 18 20 Blood Pressure 108/56 L 165/82 H Blood Pressure [Left Arm] 165/82 H Blood Pressure Mean [Left Arm] 109 Blood Pressure Source [Left Arm] Automatic Cuff Blood Pressure Position [Left Arm] Sitting 02 Sat by Pulse Oximetry 92 L 93 L Oxygen Delivery Method Room Air Room Air Room Air Lab Data Lab Results 05/30/23 10:55: WBC 6.6, RBC 4.59, Hgb 14.1, Hct 43.9, MCV 95.7, MCH 30.8, MCHC 32.1, RDW 14.5, Plt Count 126 L, MPV 9.6, Neut % (Auto) 80.1 H, Lymph % (Auto) 10.3, [place] % (Auto) 8.0, Eos % (Auto) 0.9, Baso % (Auto) 0.7, Neut # (Auto) 5.2, Lymph # (Auto) 0.7, [place] # (Auto) 0.5, Eos # (Auto) 0.1, Baso # (Auto) 0.1, PT 11.9, INR 1.11 H, APTT 27.6 05/30/23 10:55: APTT 27.4, Sodium 135 L, Potassium 4.0, Chloride 100, Carbon Dioxide 28, Anion Gap 11.0, BUN 14, Creatinine 1.40 H, Estimated Creat Clear 46, Estimated GFR 37 L, Est GFR ( Amer) 45 L, Glucose 147 H, Hemoglobin A1c 5.9, Calcium 8.8, Total Bilirubin 0.6, AST 68 H, ALT 34, Alkaline Phosphatase 94, Troponin I 0.53 H, Total Protein 6.9, Albumin 4.0, Globulin 2.9, Alb umin/Globulin Ratio 1.4, Lipase 116, Urine Color Yellow, Urine Appearance Clear, Urine pH 6.0, Ur Specific [place] 1.025, Urine Protein Trace, Urine Glucose (UA) Negative, Urine Ketones Negative, Urine Blood Trace-i, Urine Nitrate Negative, Urine Bilirubin Negative, Urine Urobilinogen 0.2, Ur Leukocyte Esterase Negative, Urine RBC 3-5, Urine WBC 3-5, Ur Squamous Epith Cells 3-5, Urine Bacteria 3+, SARS-CoV-2 (PCR) Not detected, Influenza A Untype (PCR) Detected A, Influenza Type B (PCR) Not detected 05/30/23 13:45: Troponin I 0.45 H 05/30/23 10:55 05/30/23 10:55 Orders (Tests/Meds): ED MEDICATIONS Generic Name Dose Route Start Last Admin Trade Name Freq PRN Reason Stop Dose Admin Albuterol/Ipratropium 3 ml 05/30/23 18:00 Ipratropium/Albuterol 3 Ml Neb IH 06/29/23 17:59 Q6RT [facility] Amlodipine Besylate 10 mg 05/31/23 09:00 Amlodipine 10mg Tablet PO 06/30/23 08:59 DAILY JAMEEL Nitroglycerin/Dextrose 250 mls @ 1.5 mls/hr 05/30/23 12:15 05/30/23 12:42 Nitroglycerin 50mg/250ml D5w IV 06/29/23 12:14 5 mcg/min .Q24H JAMEEL 1.5 mls/hr Administration Protocol 5 MCG/MIN Heparin Sodium/Dextrose 500 mls @ 20 mls/hr 05/30/23 12:30 05/30/23 12:43 Heparin 25,000 Units In D5w 500ml Premix IV 06/29/23 12:29 20 mls/hr .Q25H JAMEEL Administration 1,000 UNITS/HR Insulin Human Lispro 0 unit 05/30/23 16:30 Humalog 100 Units/Ml 3ml Vial (Ssi) SQ 06/29/23 16:29 ACHS [facility] Protocol Irbesartan 75 mg 05/31/23 09:00 Irbesartan 75mg Tablet PO 06/30/23 08:59 DAILY [facility] Levothyroxine Sodium 112 mcg 05/31/23 07:00 Levothyroxine 112mcg (0.112mg) Tab PO 06/30/23 06:59 DAILYDM [facility] Metformin HCl 500 mg 05/31/23 07:00 Metformin 500mg Tablet PO 06/30/23 06:59 DAILYDM [facility] Metoprolol Tartrate 25 mg 05/30/23 21:00 Metoprolol Tartrate 25mg Tablet PO 06/29/23 20:59 BID [facility] Non-Formulary Medication 10 mg 05/31/23 09:00 Bisoprolol Fumarate PO 06/30/23 08:59 DAILY [facility] Oseltamivir Phosphate 30 mg 05/30/23 21:00 Oseltamivir Phosphate 6mg/Ml Oral Susp 60ml PO 06/04/23 09:01 BID [facility] Pravastatin Sodium 40 mg 05/30/23 21:00 Pravastatin 40mg Tab PO 06/29/23 20:59 HS [facility] Discontinued Medications Generic Name Dose Route Start Last Admin Trade Name Freq PRN Reason Stop Dose Admin Aspirin 324 mg 05/30/23 12:08 12/30/23 12:10 Aspirin 81mg Chewable Tablet PO 05/30/23 12:09 324 mg ONCE ONE Administration Heparin Sodium (Porcine) 4,000 unit 05/30/23 12:30 05/30/23 12:46 Heparin Sodium 5,000 Unit/Ml Vial IV 05/30/23 12:31 4,000 unit ONCE ONE Administration Lactated Ringer's 1,000 mls @ 999 mls/hr 05/30/23 11:04 05/30/23 11:15 Lactated Ringer's 1000 Ml Bag IV 05/30/23 12:04 999 mls/hr .Q1H1M ONE Administration Iopamidol 75 ml 05/30/23 11:52 05/30/23 11:58 Iopamidol-370 (76%);100ml Bottle IV 05/30/23 11:53 75 ml ONCE ONE Administration Metoprolol Tartrate 5 mg 05/30/23 12:08 05/30/23 12:12 Metoprolol Tartrate 5mg/5ml Vial IV 05/30/23 12:09 5 mg ONCE ONE Administration Metoprolol Tartrate 5 mg 05/30/23 12:50 05/30/23 13:01 Metoprolol Tartrate 5mg/5ml Vial IV 05/30/23 12:51 Not Given ONCE ONE Metoprolol Tartrate 25 mg 05/30/23 13:00 05/30/23 13:47 Metoprolol Tartrate 25mg Tablet PO 05/30/23 13:01 25 mg ONCE ONE Administration Miscellaneous 1 each 05/30/23 12:15 05/30/23 14:46 Heparin Drip Consult NOTAPPLIC 06/29/23 12:14 Not Given CONSULT PHARMACY [facility] Nitroglycerin 0.4 mg 05/30/23 12:08 05/30/23 12:12 Nitroglycerin 0.4mg Sl Tablet SL 05/30/23 12:09 0.4 mg ONCE ONE Administration Ondansetron HCl 4 mg 05/30/23 11:04 05/30/23 11:15 Ondansetron 4mg/2ml Vial IV 05/30/23 11:05 4 mg ONCE ONE Administration Oseltamivir Phosphate 75 mg 05/30/23 11:57 05/30/23 12:07 Oseltamivir 75mg Capsule PO 05/30/23 11:58 75 mg ONCE ONE Administration Sodium Chloride 50 ml 05/30/23 11:52 05/30/23 11:58 0.9 % Sodium Chloride 50 Ml Vial IV 05/30/23 11:53 50 ml ONCE ONE Administration Sodium Chloride 10 ml 05/30/23 11:52 05/30/23 11:58 Sodium Chloride 0.9% 10ml Syr (Rad Only) IV 05/30/23 11:53 10 ml ONCE ONE Administration ORDERS Category Date Time Status CT abdomen pelvis w con Stat Cat Scan 05/30/23 11:[address] angio chest PE protocol Stat Cat Scan 05/30/23 11:04 Completed CBC w/Auto Diff [Complete Blood Count Auto Diff] Stat Lab 05/30/23 10:55 Completed CMP [Comprehensive Metabolic Panel] Stat Lab 05/30/23 10:55 Completed Complete Blood Count Auto Diff AMLAB Lab 05/31/23 06:00 Ordered Comprehensive Metabolic Panel AMLAB Lab 05/31/23 06:00 Ordered Hemoglobin A1C Stat Lab 05/30/23 10:55 Completed Lipase Stat Lab 05/30/23 10:55 Completed Magnesium AMLAB Lab 05/31/23 06:00 Ordered PT/PTT Stat Lab 05/30/23 10:55 Completed PTT Heparin (inpatient only) Stat Lab 05/30/23 10:55 Completed PTT Heparin (inpatient only) Stat Lab 05/30/23 18:30 Ordered Rapid PCR Covid and Flu A/B Stat Lab 05/30/23 10:55 Completed Trop I [Troponin I] Stat Lab 05/30/23 10:55 Completed Troponin I Q3H Lab 05/30/23 13:45 Completed Troponin I Q3H Lab 05/30/23 17:15 Ordered UA [Urinalysis and Microscopic] Stat Lab 05/30/23 10:55 Completed Urine Culture Stat Micro 05/30/23 10:55 Received ECG initial [place] Routine Y 05/30/23 11:59 Completed EKG Request [ECG Request] Stat Y 05/30/23 11:08 Ordered ECG Data Tracing #1: Independently interpreted by me, rate is 100, rhythm is regular, axis is normal, no ST elevation in anatomical contiguous leads, QTc 415. Tracing #2: Independently interpreted by me, rate is 106, rhythm is regular, axis is normal, ST depression in the lateral leads, no ST elevation in anatomical contiguous leads Tracing #3: Independently interpreted by me, rate is 86, rhythm is regular, axis is normal, no ST elevation in anatomical contiguous leads, resolution of ST depression in the lateral leads. QTc 438. HEART Score History (anamnesis): Highly suspicious ECG: Significant ST-deviation Age: >65 years Risk factors: 1-2 risk factors Troponin: > 3x normal limit HEART Score: 9 Medical Decision Narrative: In summary patient is a 72-year-old female with past medical history described above who presents emergency department for evaluation of shortness of breath, vomiting. Patient is hemodynamically stable nontoxic-appearing upon arrival, afebrile, tachycardic. Differential includes serial viral syndromes, pulmonary embolism, malignancy, among others. Workup will be conducted with hematologic labs, CTA chest, CT abdomen pelvis IV contrast, urinalysis, viral swab. Initial interventions include Zofran, crystalloid bolus. Initial workup reviewed by me, hematologic labs remarkable for significantly elevated troponin, baseline is undetectably low. Patient is influenza positive for which Tamiflu will be administered. Patient is stable CKD. Subsequent EKG obtained shows dynamic ST depression in the lateral leads. The case was discussed with cardiology who recommends beta-blockade, heparin drip, nitro drip. Patient received 1 push of metoprolol tartrate IV, subsequently was given 25 mg of metoprolol tartrate p.o. Repeat EKG shows resolution of ST depression. Cardiology recommends continuing heparin drip at this time. Current differential includes myocarditis secondary to influenza versus primary ACS. Chest and abdominal CTs show no acute pathology, chronic changes. The case was discussed with hospital medicine who admit the patient their service for continued evaluation at this time. Critical Care Critical Care Time Critical Care Time: Yes Attestation: On 05/30/23, the high probability of a clinically significant, sudden or life threatening deterioration of the following system(s) required my full and direct attention, intervention and personal management. The time I documented below is in addition to time spent performing reported procedures but includes the following listed in this critical care notation. Total Time Total Critical Care Time: 35
[2023-05-30 11:10] LABS: Microscopic, Urine URINE MICROSCOPIC (MICROSCOPIC)
[2023-05-30 11:11] LABS: Appearance,Urine CLEAR (Clear); Bilirubin,Urine Negative (Negative); Blood, Urine TRACE-I (Negative); Color,Urine YELLOW (Yellow); Glucose,Urine (UA) Negative (Negative); Ketones,Urine Negative (Negative); Leukocyte Esterase,Urine Negative (Negative); Nitrate,Urine Negative (Negative); Protein,Urine TRACE (Negative); Specific Gravity, Urine 1.025 (1.005-1.030); Urobilinogen,Urine 0.2 EU/dl (0.2)
[2023-05-30 11:14] LABS: Coronavirus 19, PCR Not Detected (NotDetected); Influenza B, PCR Not Detected (NotDetected)
[2023-05-30] MEDS: LACTATED RINGERS 1000ML 1,000 ML 999 ML IV (11:15)
[2023-05-30] MEDS: ONDANSETRON 4MG/2ML VIAL 4 MG IV (11:15)
--- NOTE | 2023-05-30 11:18 | PC.NURSE ---
FSBS: 126
[2023-05-30 11:20] LABS: Basophils # 0.1 K/mm3 (0-0.2); Basophils % 0.7 % (0.1-2.0); Eosinophils # 0.1 K/mm3 (0.0-0.4); Eosinophils % 0.9 % (0.1-12.0); Hematocrit 43.9 % (37.0-47.0); Hemoglobin 14.1 g/dL (12.2-16.2); Lymphocytes # 0.7 K/mm3 (0.7-4.5); Lymphocytes % 10.3 % (10-50); Mean Corpuscular HGB Conc 32.1 g/dL (31.8-35.4); Mean Corpuscular Hemoglobin 30.8 pg (27.0-31.2); Mean Corpuscular Volume 95.7 fl (81-99); Mean Platelet Volume 9.6 fl (7.4-10.4); Monocytes # 0.5 K/mm3 (0.1-1.0); Neutrophils # 5.2 K/mm3 (1.8-7.8); Neutrophils % 80.1 % (37.0-80.0); Platelet Count 126 K/mm3 (142-424); Red Blood Count 4.59 M/mm3 (4.20-5.40); Red Cell Distribution Width 14.5 % (11.5-17.5); White Blood Count 6.6 K/mm3 (4.8-10.8)
--- NOTE | 2023-05-30 11:21 | ECG_ITS ---
APPROVED REPORT Exam: Resting ECG HR:100 bpm ECG Measurements Heart Rate 100 AXES TN 164 P 71 QRSd 97 QRS 45 QT 358 T 59 QTc 415 Conclusion SINUS TACHYCARDIA WITH OCCASIONAL SUPRAVENTRICULAR PREMATURE COMPLEXES SEPTAL MYOCARDIAL INFARCTION , OF INDETERMINATE AGE [40+ ms Q WAVE IN V1/V2] ABNORMAL ECG UNCONFIRMED REPORT Electronically signed by : Krishan Caldwell MD 06/04/2023 20:44:50
[2023-05-30 11:26] LABS: Bacteria,Urine 3+ /lpf
[2023-05-30 11:27] LABS: Chloride 100 mmol/L (98-107); Sodium 135 mmol/L (136-145)
[2023-05-30 11:30] LABS: Alanine Aminotransferase 34 U/L (12-78); Albumin/Globulin Ratio 1.4 (1.1-1.8); Alkaline Phosphatase 94 U/L (38-126); Aspartate Amino Transferase 68 U/L (14-36); Bilirubin,Total 0.6 mg/dl (0.2-1.3); Blood Urea Nitrogen 14 mg/dl (7-17); Calcium 8.8 mg/dl (8.4-10.2); Carbon Dioxide 28 mmol/L (22.0-30.0); Creatinine Clearance Estimated 46 mL/min (50-200); Estimated Glomerular Filt Rate 37 ml/min (>60); GFR (African American) 45 ML/MIN (>60); Globulin 2.9 g/dL (1.3-3.2); Glucose 147 mg/dl (74-100); Lipase 116 U/L (23-300); Total Protein,Serum 6.9 g/dl (6.3-8.2)
[2023-05-30 11:44] LABS: Influenza A, PCR Detected (NotDetected)
--- NOTE | 2023-05-30 11:47 | PC.NURSE ---
Pt gone to RAD
[2023-05-30 11:48] LABS: Troponin I 0.53 ng/ml (0.00-0.034)
--- NOTE | 2023-05-30 11:48 | PC.NURSE ---
critical from lab trop 0.53 and she is also flu A
[2023-05-30] MEDS: SODIUM CHLORIDE 0.9% 10ML SYR (RAD ONLY) 10 ML IV (11:58)
[2023-05-30] MEDS: 0.9 % SODIUM CHLORIDE 50 ML VIAL IV (11:58)
[2023-05-30] MEDS: IOPAMIDOL-370 (76%);100ML BOTTLE 75 ML IV (11:58)
--- NOTE | 2023-05-30 11:59 | PC.NURSE ---
Repeat EKG done
--- NOTE | 2023-05-30 11:59 | ECG_ITS ---
APPROVED REPORT Exam: Resting ECG HR:106 bpm ECG Measurements Heart Rate 106 AXES AL 148 P 67 QRSd 101 QRS 62 QT 353 T 49 QTc 415 Conclusion SINUS TACHYCARDIA SEPTAL MYOCARDIAL INFARCTION , OF INDETERMINATE AGE [40+ ms Q WAVE IN V1/V2] ST DEPRESSION, CONSIDER SUBENDOCARDIAL INJURY [0.1+ mV ST DEPRESSION] ABNORMAL ECG UNCONFIRMED REPORT Electronically signed by : Krishan Caldwell MD 06/01/2023 08:32:23
--- NOTE | 2023-05-30 12:02 | PC.NURSE ---
Pt returned from RAD
--- NOTE | 2023-05-30 12:04 | PC.NURSE ---
Dr. Morales speaking with Dr. Pinon
[2023-05-30] MEDS: OSELTAMIVIR 75MG CAPSULE 75 MG PO (12:07)
[2023-05-30] MEDS: ASPIRIN 81MG CHEWABLE TABLET 324 MG PO (12:10)
[2023-05-30] MEDS: NITROGLYCERIN 0.4MG SL TABLET 0.400000000000000022 MG SL (12:12)
[2023-05-30] MEDS: METOPROLOL TARTRATE 5MG/5ML VIAL 5 MG IV (12:12)
[2023-05-30 12:34] LABS: Activated Partial Thrombo Time 27.6 seconds (22.8-30.6); INR 1.11 (0.9-1.1); PTT Heparin (inpatient only) 27.4 Seconds (23.6-34.0); Prothrombin Time 11.9 seconds (10.1-12.5)
[2023-05-30] MEDS: NITROGLYCERIN IN 5 % DEXTROSE 250 ML 1.5 MG IV (12:42)
[2023-05-30] MEDS: HEPARIN SODIUM,PORCINE/D5W 500 ML 20 UNIT IV (12:43)
[2023-05-30] MEDS: HEPARIN SODIUM 5,000 UNIT/ML VIAL 4000 UNIT IV (12:46)
--- NOTE | 2023-05-30 13:02 | PC.NURSE ---
2nd dose of metoprolol 25mg IV NOT GIVEN due to B/P MD still wants the PO dose
--- NOTE | 2023-05-30 13:16 | P.CONPHA_ITS ---
[facility] Heparin Dosing Demographic Data Admission date:: 05/30/23 Date: 05/30/23 Time: 13:16 Allergies Allergy/AdvReac Type Severity Reaction Status Date / Time niacin [NIACIN] Allergy Intermediate I-RASH Verified 02/27/23 10:03 Height: 1.68 m Weight: 81.647 kg Indication Medication therapy:: Heparin Current Indications:: ACS - LOW DOSE PROTOCOL Current Active Problems (Updated 05/30/23 @ 16:06 by Edil Morales MD) Influenza A (Acute) Non-ST elevation ME (NSTEMI) (Acute) Hypothyroidism (Chronic) Hypertensive urgency (Acute) Influenza A (Acute) NSTEMI (non-ST elevated myocardial infarction) (Acute) Breast cancer (Acute) Diabetes mellitus with diabetic neuropathy (Chronic) CVA?: No Bleeding problem?: No Kidney disease?: No ME?: Yes Additional History:: DIABETES, BREAST CANCER, OSTEOARTHRITIS Desired PTT range:: 50-75 seconds Comments:: BASELINE PTT: 27.4 SECONDS Labs Anticoagulation Lab Results:: 05/30/23 10:55 Hgb 14.1 Hct 43.9 Plt Count 126 L Monitoring Dose Monitor 1: Date: 05/30/23 Time: 13:17 PTT Result:: BASELINE PTT: 27.4 SECONDS Infusion Rate:: INITIATE HEPARIN DRIP AT 1000 UNITS/HOUR = 20 ML/HOUR AND BOLUS 4000 UNITS HEPARIN IV ONCE. Dose Monitor 2: Date: 05/30/23 Time: 18:30 PTT Result:: 75.8 SECONDS Infusion Rate:: BENTLEY CONTINUED CURRENT RATE OF 1000 UNITS/HOUR = 20 ML/HOUR Dose Monitor 3: Date: 05/31/23 Time: 00:15 PTT Result:: 82.6 SECONDS Infusion Rate:: BENTLEY DECREASED RATE TO 900 UNITS/HOUR = 18 ML/HOUR Dose Monitor 4: Date: 05/31/23 Time: 06:43 PTT Result:: 94.5 SECONDS Infusion Rate:: BENTLEY DECREASED RATE TO 700 UNITS/HOUR = 14 ML/HOUR Comment:: DR. GLOVER ORDERED DRIP STOPPED AND CHANGED TO LOVENOX 1 MG/KG Q12H AT 0830. Core Measures Is INR > or = 2 at discharge?: No Most Recent Labs:: Laboratory Results - last 24 hr 05/30/23 10:55: WBC 6.6, RBC 4.59, Hgb 14.1, Hct 43.9, MCV 95.7, MCH 30.8, MCHC 32.1, RDW 14.5, Plt Count 126 L, MPV 9.6, Neut % (Auto) 80.1 H, Lymph % (Auto) 10.3, [place] % (Auto) 8.0, Eos % (Auto) 0.9, Baso % (Auto) 0.7, Neut # (Auto) 5.2, Lymph # (Auto) 0.7, [place] # (Auto) 0.5, Eos # (Auto) 0.1, Baso # (Auto) 0.1, PT 11.9, INR 1.11 H, APTT 27.6 05/30/23 10:55: APTT 27.4, Sodium 135 L, Potassium 4.0, Chloride 100, Carbon Dioxide 28, Anion Gap 11.0, BUN 14, Creatinine 1.40 H, Estimated Creat Clear 46, Estimated GFR 37 L, Est GFR ( Amer) 45 L, Glucose 147 H, Calcium 8.8, Total Bilirubin 0.6, AST 68 H, ALT 34, Alkaline Phosphatase 94, Troponin I 0.53 H, Total Protein 6.9, Albumin 4.0, Globulin 2.9, Albumin/Globulin Ratio 1.4, Lipase 116, Urine Color Yellow, Urine Appearance Clear, Urine pH 6.0, Ur Specific [place] 1.025, Urine Protein Trace, Urine Glucose (UA) Negative, Urine Ketones Negative, Urine Blood Trace-i, Urine Nitrate Negative, Urine Bilirubin Negative, Urine Urobilinogen 0.2, Ur Leukocyte Esterase Negative, Urine RBC 3-5, Urine WBC 3-5, Ur Squamous Epith Cells 3-5, Urine Bacteria 3+, SARS-CoV-2 (PCR) Not detected, Influenza A Untype (PCR) Detected A, Influenza Type B (PCR) Not detected Were Heparin and Warfarin started on the same day?: No If not, why?: CHANGED TO LOVENOX
--- NOTE | 2023-05-30 13:34 | ECG_ITS ---
APPROVED REPORT Exam: Resting ECG HR:86 bpm ECG Measurements Heart Rate 86 AXES OH 167 P 69 QRSd 98 QRS 33 QT 395 T 58 QTc 438 Conclusion SINUS RHYTHM SEPTAL MYOCARDIAL INFARCTION , OF INDETERMINATE AGE [40+ ms Q WAVE IN V1/V2] ABNORMAL ECG UNCONFIRMED REPORT Electronically signed by : Krishan Caldwell MD 06/04/2023 20:44:42
--- NOTE | 2023-05-30 13:39 | PC.NURSE ---
Dr. Pinon paged
--- NOTE | 2023-05-30 13:46 | PC.NURSE ---
DR WALKER SPEAKING WITH HOSPITALIST
[2023-05-30] MEDS: METOPROLOL TARTRATE 25MG TABLET 25 MG PO ×2 (13:47→20:51)
--- NOTE | 2023-05-30 13:50 | PC.NURSE ---
TRACK REPAIRER NOTIFIED OF ADMISSION
--- NOTE | 2023-05-30 13:53 | EXP.HP ---
History of Present Illness *Admission Date: 05/30/23 *Reason for visit:: cough, SOA *History of present illness: Ms. Iyer is a 72-year-old female with history of previous breast cancer, hypertension, hyperlipidemia. She presented to the ER for evaluation of worsening shortness of breath and fatigue. Reports having had a cough for couple weeks but has gotten significantly worse over the past 3 days. Increased shortness of breath. Denies any chest pain, confusion, syncope, nausea or vomiting. No oxygen requirement in the ER workup are concerning for hypertensive urgency, found to be flu positive. Noted to have elevated troponin 0.5. Cardiology was consulted and patient was started on a heparin drip and nitroglycerin drip. Given NSTEMI, flu A, and hypertensive urgency, medicine was consulted for admission. Patient admitted to stepdown status for continued IV drip treatment. After arriving to the floor, patient states that she has no chest pain at this time. Blood pressure responding to nitro drip. Minimal cough. Developed a fever by the time she arrived to the floor. Received dose of metoprolol 25 mg p.o. in the ER. Normally takes bisoprolol at home but has not taken it today. [facility] Disclaimer: The information contained in this section may have been updated after the patient was seen, as this information can be updated by other users. Medical History Breast cancer Surgical History History of breast biopsy History of colonoscopy Family History No significant family history Social History Smoking Status: Never smoker second hand exposure: No alcohol intake: never counseling provided: none substance use type: denies use current occupational status: retired Travel in the last 8 weeks: None household members: spouse housing: house current occupational exposures/hazards: No caffeine: Yes Review of Systems Review of Systems Review of systems (narrative): 14 point review of systems performed, pertinent positives and negatives as per HPI Meds Home Medications and Allergies Home Medications Medication Instructions Recorded Confirmed Type pravastatin 40 mg tablet 40 mg PO HS Cholesterol 06/23/17 05/30/23 History amlodipine 10 mg tablet 10 mg PO DAILY High Blood Pressure 03/28/19 05/30/23 History #90 tabs bisoprolol fumarate 10 mg tablet 10 mg PO DAILY High Blood Pressure 01/26/20 05/30/23 History hydrochlorothiazide 25 mg tablet 25 mg PO DAILY Fluid 12/18/20 05/30/23 History levothyroxine 112 mcg tablet 112 mcg PO DAILYDM THYROID 01/13/22 05/30/23 History naproxen 500 mg tablet 500 mg PO BIDP PRN Mild Pain 01/13/22 05/30/23 History (Scale Score 1-4) tamoxifen 20 mg tablet 20 mg PO DAILY CHEMOTHERAPY 02/27/22 05/30/23 History glimepiride 2 mg tablet 2 mg PO DAILYDM Diabetes 07/23/22 05/30/23 History metformin 500 mg tablet 500 mg PO DAILYDM Diabetes 07/23/22 05/30/23 History hydroxyzine pamoate 25 mg capsule 25 mg PO TIDP PRN Itching 05/30/23 05/30/23 History New Prescriptions to Start Prescriptions: Allergies Allergy/AdvReac Type Severity Reaction Status Date / Time niacin [NIACIN] Allergy Intermediate I-RASH Verified 02/27/23 10:03 Exam Data for Last 24 hours Vital signs and Labs for Last 24 Hours: Temp Pulse Resp BP Pulse Ox O2 Del Method 99.6 F 88 12 108/56 L 92 L Room Air 05/30/23 10:51 05/30/23 13:00 05/30/23 13:00 05/30/23 13:00 05/30/23 13:00 05/30/23 13:00 Laboratory Results - last 24 hr 05/30/23 10:55: WBC 6.6, RBC 4.59, Hgb 14.1, Hct 43.9, MCV 95.7, MCH 30.8, MCHC 32.1, RDW 14.5, Plt Count 126 L, MPV 9.6, Neut % (Auto) 80.1 H, Lymph % (Auto) 10.3, [place] % (Auto) 8.0, Eos % (Auto) 0.9, Baso % (Auto) 0.7, Neut # (Auto) 5.2, Lymph # (Auto) 0.7, [place] # (Auto) 0.5, Eos # (Auto) 0.1, Baso # (Auto) 0.1, PT 11.9, INR 1.11 H, APTT 27.6 05/30/23 10:55: APTT 27.4, Sodium 135 L, Potassium 4.0, Chloride 100, Carbon Dioxide 28, Anion Gap 11.0, BUN 14, Creatinine 1.40 H, Estimated Creat Clear 46, Estimated GFR 37 L, Est GFR ( Amer) 45 L, Glucose 147 H, Calcium 8.8, Total Bilirubin 0.6, AST 68 H, ALT 34, Alkaline Phosphatase 94, Troponin I 0.53 H, Total Protein 6.9, Albumin 4.0, Globulin 2.9, Albumin/Globulin Ratio 1.4, Lipase 116, Urine Color Yellow, Urine Appearance Clear, Urine pH 6.0, Ur Specific [place] 1.025, Urine Protein Trace, Urine Glucose (UA) Negative, Urine Ketones Negative, Urine Blood Trace-i, Urine Nitrate Negative, Urine Bilirubin Negative, Urine Urobilinogen 0.2, Ur Leukocyte Esterase Negative, Urine RBC 3-5, Urine WBC 3-5, Ur Squamous Epith Cells 3-5, Urine Bacteria 3+, SARS-CoV-2 (PCR) Not detected, Influenza A Untype (PCR) Detected A, Influenza Type B (PCR) Not detected I & O for Last 24 hours: Intake & Output 05/27/23 05/28/23 05/29/23 05/30/23 23:59 23:59 23:59 23:59 Weight 81.647 kg Constitutional Constitutional: no acute distress and average body habitus Comments: Ill-appearing *Routine HEENT Exam Head: Present normocephalic Eye: Present EOMI and PERRL ENT: Present mucous membranes moist *Routine Neck Exam Neck: Present supple; Absent lymphadenopathy *Routine Respiratory Exam Respiratory: Present rhonchi, wheezes and normal respiratory effort; Absent crackles *Routine Cardiovascular Exam Cardiovascular: Present RRR *Routine Abdominal Exam Abdominal: Present soft and normoactive bowel sounds; Absent tenderness *Routine Rectal Exam Rectal:: deferred *Routine Genitalia Exam Genitalia:: deferred *Routine Extremities Exam Extremities: Absent cyanosis, clubbing or edema *Routine Skin Exam Skin: Present warm; Absent rash *Routine Neurological Exam Neurological: Present alert, oriented X3 and moving all extremities; Absent altered mental status Comments: Hard of hearing Assessment and Plan *Assessment and plan (1) NSTEMI (non-ST elevated myocardial infarction): Status: Acute Category: Medical Code(s): I21.4 - Non-ST elevation (NSTEMI) myocardial infarction (2) Influenza A: Status: Acute Category: Medical Code(s): J10.1 - Influenza due to other identified influenza virus with other respiratory manifestations (3) Hypertensive urgency: Status: Acute Category: Medical Code(s): I16.0 - Hypertensive urgency (4) Diabetes mellitus with diabetic neuropathy: Status: Chronic Qualifiers: Diabetes mellitus neuropsychology director insulin use: without neuropsychology director use Diabetes mellitus type: type 2 Qualified Code(s): E11.40 - Type 2 diabetes mellitus with diabetic neuropathy, unspecified Category: Medical Code(s): E11.40 - Type 2 diabetes mellitus with diabetic neuropathy, unspecified (5) Breast cancer: Status: Acute Category: Medical Code(s): C50.919 - Malignant neoplasm of unspecified site of unspecified female breast (6) Hypothyroidism: Status: Chronic Qualifiers: Hypothyroidism type: acquired Qualified Code(s): E03.9 - Hypothyroidism, unspecified Category: Medical Code(s): E03.9 - Hypothyroidism, unspecified Plan 72-year-old female with hypothyroid, hypertension, diabetes, history of breast cancer who presented with weakness and worsening shortness of breath over the past 3 days. Found to be flu positive with hypertensive urgency in the ER. Discussed case with ER physician, request admission for continued treatment of NSTEMI and flu with nitro drip and heparin drip. Cardiology was contacted and recommended blood pressure control with nitroglycerin drip and heparin drip for NSTEMI. Necessitate stepdown level of care. Problems addressed as follows: NSTEMI Hypertensive urgency -Blood pressure severely elevated on arrival with systolics in the 180s, initial troponin elevated at 0.5, 3-hour repeat 0.45. 6-hour level pending -Nitroglycerin drip with goal blood pressure less than 130/80 -Received 25 mg metoprolol tartrate in the ER, continue metoprolol additional dose this evening. Resume home bisoprolol 10 mg in the morning along with amlodipine 10 mg per home regimen -Heparin drip for NSTEMI. -Repeat EKG if patient develops chest pain -Cardiology consulted, will discuss case over the next 24 hours about potential elective heart cath. Suspect elevation in troponin related to patient's fluid status. Differential diagnosis includes coronary artery disease, type II NSTEMI due to supply/demand mismatch, myocarditis from flu. -Will obtain echo at earliest available date pending availability of staff Influenza A -Currently on room air, goal saturation greater 90%, monitor for oxygen needs -Continue Tamiflu, renally dosed at 30 mg twice daily given creatinine clearance. - White cell count normal at 6.6, repeat CBC ordered for the morning. CKD: Creatinine 1.4, this appears to be patient's baseline. Caution with nephrotoxins. Hypothyroidism: Continue home 112 mcg levothyroxine daily Diabetes: A1c pending, continue metformin 500 mg daily. Fingersticks ACHS with sliding scale insulin History of breast cancer: Holding on tamoxifen in the setting of acute illness. Hyperlipidemia: Continue home pravastatin 40 mg nightly Full code Heparin drip Diabetic diet
[2023-05-30 14:10] LABS: Hemoglobin A1C 5.9 % (4.0-6.0)
[2023-05-30 14:12] LABS: Troponin I 0.45 ng/ml (0.00-0.034)
--- NOTE | 2023-05-30 14:18 | PC.NURSE ---
Report called to NANNETTE Atwood
--- NOTE | 2023-05-30 14:19 | PC.NURSE ---
notified of critical troponin.
--- NOTE | 2023-05-30 14:43 | PC.NURSE ---
pt admitted to 218 from ER via stretcher
--- NOTE | 2023-05-30 14:55 | HMH.PHAINT1 ---
Pharmacy Intervention Comments: MEDICATION RECONCILIATION COMPLETE USING EXTERNAL PHARMACY FILL HISTORY, PATIENT INTERVIEW (VIA [facility]) AND MOST RECENT MD OFFICE VISIT.
[2023-05-30 16:03] LABS: POC Glucose,Bedside 95 (70-110)
--- NOTE | 2023-05-30 16:05 | PC.NURSE ---
pt has fever, 650 mg PO tylenol given per verbal order from MD Barreto at bedside
[2023-05-30 17:53] LABS: Troponin I 0.61 ng/ml (0.00-0.034)
--- NOTE | 2023-05-30 17:55 | ECG_ITS ---
APPROVED REPORT Exam: Resting ECG HR:98 bpm ECG Measurements Heart Rate 98 AXES ND 140 P 25 QRSd 98 QRS 48 QT 355 T 50 QTc 411 Conclusion SINUS RHYTHM ANTEROSEPTAL MYOCARDIAL INFARCTION , OF INDETERMINATE AGE [40+ ms Q WAVE IN V1-V4] ABNORMAL ECG UNCONFIRMED REPORT Electronically signed by : Krishan Caldwell MD 05/31/2023 08:19:47
--- NOTE | 2023-05-30 17:55 | PC.NURSE ---
MD Barreto informed this RN would like to keep pt's blood pressure less than 140mmHg although drip parameter says 160mmHg
[2023-05-30 17:56] LABS: PTT Heparin (inpatient only) 75.8 Seconds (23.6-34.0)
[2023-05-30] MEDS: IRBESARTAN 75MG TABLET 37.5 MG PO (18:07)
[2023-05-30] MEDS: IPRATROPIUM/ALBUTEROL 3 ML NEB IH (18:18)
[2023-05-30] MEDS: PRAVASTATIN 40MG TAB 40 MG PO (20:50)
[2023-05-30] MEDS: OSELTAMIVIR PHOSPHATE 6MG/ML ORAL SUSP 60ML 30 MG PO (20:51)
[2023-05-31] VITALS (22 sets, daily range): BP systolic 116–155; BP diastolic 61–81; PULSE 72–110; RESP 18–35; TEMP 37–39; O2SAT 89–94; BMI 30.1
[2023-05-31] MEDS: ACETAMINOPHEN 325MG TAB 650 MG PO ×3 (00:22→23:47)
[2023-05-31] MEDS: ONDANSETRON 4MG/2ML VIAL 4 MG IV (00:28)
[2023-05-31 00:57] LABS: PTT Heparin (inpatient only) 82.6 Seconds (23.6-34.0)
--- NOTE | 2023-05-31 01:14 | PC.NURSE ---
spoke with Larry from [facility] pharmacy, heparin gtt titrated to 900 units/hr at this time.
--- NOTE | 2023-05-31 05:11 | PC.NURSE ---
pt. is A&Ox4, gets up to the bedside commode with assistance x2, no complaints of chest pain this shift, pt stated that she had a little bit of a headache and rated it at 4/10 on pain scale but said it had eased up since, given tylenol for temp of 100.5, temp this am is 98.7, systolic BP has been 115-130s this am, family is at bedside and call light is in reach.
[2023-05-31 05:14] LABS: POC Glucose,Bedside 120 (70-110)
[2023-05-31 05:14] LABS: POC Glucose,Bedside 117 (70-110)
[2023-05-31] MEDS: IPRATROPIUM/ALBUTEROL 3 ML NEB IH ×4 (06:07→22:53)
[2023-05-31] MEDS: METFORMIN 500MG TABLET 500 MG PO ×2 (06:30→09:13)
[2023-05-31 07:19] LABS: Basophils % 0.5 % (0.1-2.0); Chloride 102 mmol/L (98-107); Eosinophils % 0.4 % (0.1-12.0); Hematocrit 38.6 % (37.0-47.0); Hemoglobin 12.9 g/dL (12.2-16.2); Lymphocytes # 2.3 K/mm3 (0.7-4.5); Lymphocytes % 26.4 % (10-50); Mean Corpuscular HGB Conc 33.5 g/dL (31.8-35.4); Mean Corpuscular Hemoglobin 31.6 pg (27.0-31.2); Mean Corpuscular Volume 94.4 fl (81-99); Mean Platelet Volume 9.7 fl (7.4-10.4); Monocytes # 0.6 K/mm3 (0.1-1.0); Monocytes % 7.3 % (1.7-9.3); Neutrophils # 5.7 K/mm3 (1.8-7.8); Neutrophils % 65.4 % (37.0-80.0); Platelet Count 110 K/mm3 (142-424); Red Blood Count 4.09 M/mm3 (4.20-5.40); Red Cell Distribution Width 14.8 % (11.5-17.5); White Blood Count 8.7 K/mm3 (4.8-10.8)
[2023-05-31 07:20] LABS: Potassium 3.7 mmoL/L (3.5-5.1); Sodium 135 mmol/L (136-145)
[2023-05-31 07:22] LABS: Alanine Aminotransferase 30 U/L (12-78); Anion Gap 11.7 mEq/L (5-15); Aspartate Amino Transferase 68 U/L (14-36); Blood Urea Nitrogen 17 mg/dl (7-17); Carbon Dioxide 25 mmol/L (22.0-30.0); Creatinine Clearance Estimated 40 mL/min (50-200); Estimated Glomerular Filt Rate 29 ml/min (>60); GFR (African American) 36 ML/MIN (>60)
[2023-05-31 07:23] LABS: Albumin Level 3.2 g/dl (3.5-5.0); Albumin/Globulin Ratio 1.2 (1.1-1.8); Alkaline Phosphatase 72 U/L (38-126); Bilirubin,Total 0.6 mg/dl (0.2-1.3); Calcium 7.9 mg/dl (8.4-10.2); Globulin 2.6 g/dL (1.3-3.2); Glucose 122 mg/dl (74-100); Magnesium 1.7 mg/dl (1.6-2.3); Total Protein,Serum 5.8 g/dl (6.3-8.2)
[2023-05-31 07:46] LABS: PTT Heparin (inpatient only) 94.5 Seconds (23.6-34.0)
--- NOTE | 2023-05-31 07:51 | PC.NURSE ---
Larry Grijalva with [facility] pharmacy called and instructed this RN to decrease heparin drip to 700units/hr and collect PTT in six hours
[2023-05-31 07:54] LABS: Troponin I 0.53 ng/ml (0.00-0.034)
--- NOTE | 2023-05-31 08:26 | PC.NURSE ---
[facility] INSTRUCTED THIS RN TO STOP HEPARIN DRIP AND THEN AN HOUR AFTER STOPPING DRIP THIS RN TO GIVE LOVENOX PER EMAR
[2023-05-31] MEDS: OSELTAMIVIR PHOSPHATE 6MG/ML ORAL SUSP 60ML 30 MG PO ×2 (09:12→20:10)
[2023-05-31] MEDS: LEVOTHYROXINE 112MCG (0.112MG) TAB 112 MCG PO (09:12)
[2023-05-31] MEDS: IRBESARTAN 75MG TABLET 75 MG PO (09:12)
[2023-05-31] MEDS: BISOPROLOL 5MG TABLET 10 MG PO (09:13)
[2023-05-31] MEDS: ENOXAPARIN 100MG/ML SYRINGE 85 MG SQ ×2 (09:13→20:09)
[2023-05-31] MEDS: CLOPIDOGREL 300MG TABLET 300 MG PO (09:13)
[2023-05-31] MEDS: AMLODIPINE 10MG TABLET 10 MG PO (09:13)
[2023-05-31] MEDS: ASPIRIN EC 81MG TABLET 81 MG PO (09:13)
--- NOTE | 2023-05-31 09:53 | P.PN_ITS ---
Subjective *Date: 05/31/23 *Time: 11:43 Interval history: Patient requiring 2 L nasal cannula oxygen on morning rounds today. Troponin is remained stable. Continues to deny chest pain. Developed fever overnight. Cough mildly productive. Tolerating p.o. intake but only eating between 25 and 50% of her trays. Medical Exam Vital signs and Labs for Last 24 Hours: Vital Signs Temp Pulse Pulse Resp BP BP Pulse Ox 05/31/23 08:00 100 H 05/31/23 08:00 106 H 31 H 137/67 89 L 05/31/23 08:00 102.2 F H 05/31/23 06:41 05/31/23 06:00 101 H 22 133/73 90 L 05/31/23 06:11 90 05/31/23 06:11 91 H 05/31/23 05:51 90 05/31/23 05:00 05/31/23 04:00 98.7 F 95 H 20 118/61 90 L 05/31/23 04:00 05/31/23 03:00 05/31/23 02:00 110 H 22 135/67 91 L 05/31/23 01:52 108 H 24 139/77 94 L 05/31/23 00:00 107 H 28 H 155/81 H 90 L 05/31/23 01:00 05/31/23 00:00 100.5 F H 05/30/23 20:00 110 H 05/30/23 23:00 05/30/23 22:00 94 H 24 162/85 H 90 L 05/30/23 21:19 96 H 26 H 166/80 H 89 L 05/30/23 21:00 05/30/23 20:00 05/30/23 20:00 100.0 F H 05/30/23 19:01 84 05/30/23 19:01 83 05/30/23 18:18 05/30/23 17:00 05/30/23 17:45 86 34 H 157/85 H 90 L 05/30/23 16:00 90 05/30/23 14:00 97.9 F 80 20 165/82 H 93 L 05/30/23 15:53 100.6 F H 05/30/23 15:22 93 L 05/30/23 15:00 90 22 154/84 H 91 L 05/30/23 14:44 05/30/23 14:24 98.7 F 82 18 165/82 H 05/30/23 13:00 88 12 108/56 L 92 L 05/30/23 12:42 89 19 163/89 H 92 L 05/30/23 12:29 106 H 21 173/97 H 97 05/30/23 10:51 99.6 F 108 H 20 181/87 H 96 O2 Del Method O2 Flow Rate 05/31/23 08:00 05/31/23 08:00 Room Air 05/31/23 08:00 05/31/23 06:41 Nasal Cannula 2 05/31/23 06:00 Nasal Cannula 2 05/31/23 06:11 05/31/23 06:11 05/31/23 05:51 05/31/23 05:00 Nasal Cannula 2 05/31/23 04:00 Nasal Cannula 2 05/31/23 04:00 Room Air 05/31/23 03:00 Nasal Cannula 2 05/31/23 02:00 Nasal Cannula 2 05/31/23 01:52 Nasal Cannula 2 05/31/23 00:00 Nasal Cannula 2 05/31/23 01:00 Nasal Cannula 2 05/31/23 00:00 05/30/23 20:00 05/30/23 23:00 Room Air 05/30/23 22:00 Room Air 05/30/23 21:19 Room Air 05/30/23 21:00 Room Air 05/30/23 20:00 Room Air 05/30/23 20:00 05/30/23 19:01 05/30/23 19:01 05/30/23 18:18 Room Air 05/30/23 17:00 Room Air 05/30/23 17:45 Room Air 05/30/23 16:00 05/30/23 14:00 Room Air 05/30/23 15:53 05/30/23 15:22 Room Air 05/30/23 15:00 Room Air 05/30/23 14:44 Room Air 05/30/23 14:24 Room Air 05/30/23 13:00 Room Air 05/30/23 12:42 Room Air 05/30/23 12:29 Room Air 05/30/23 10:51 Room Air Intake and Output 05/30/23 05/31/23 05/31/23 23:59 07:59 15:59 Intake Total 516.125 / 520.800 606.45 / 606.45 Output Total 0 / 0 Balance 516.125 / 520.800 606.45 / 606.45 Intake: Intake, Oral Amount 450 / 450 Intake, Total IV Amount 66.125 / 70.800 606.45 / 606.45 Heparin Sodium,Porcine/D5w 500 324 / 324 ml @ 900 UNITS/HR 18 mls/hr IV .Q25H JAMEEL Rx#:[id number] Nitroglycerin in 5 % Dextrose 175 / 175 250 ml @ 5 MCG/MIN 1.5 mls/hr IV .Q24H JAMEEL Rx#:[id number] Output: Output, Urine Amount 0 / 0 Other: Number of Unmeasured Voids 1 Weight 84.992 kg Patient Weight 05/31/23 23:59 Weight 84.992 kg Laboratory Results - last 24 hr 05/30/23 10:55: WBC 6.6, RBC 4.59, Hgb 14.1, Hct 43.9, MCV 95.7, MCH 30.8, MCHC 32.1, RDW 14.5, Plt Count 126 L, MPV 9.6, Neut % (Auto) 80.1 H, Lymph % (Auto) 10.3, [place] % (Auto) 8.0, Eos % (Auto) 0.9, Baso % (Auto) 0.7, Neut # (Auto) 5.2, Lymph # (Auto) 0.7, [place] # (Auto) 0.5, Eos # (Auto) 0.1, Baso # (Auto) 0.1, PT 11.9, INR 1.11 H, APTT 27.6 05/30/23 10:55: APTT 27.4, Sodium 135 L, Potassium 4.0, Chloride 100, Carbon Dioxide 28, Anion Gap 11.0, BUN 14, Creatinine 1.40 H, Estimated Creat Clear 46, Estimated GFR 37 L, Est GFR ( Amer) 45 L, Glucose 147 H, Hemoglobin A1c 5.9, Calcium 8.8, Total Bilirubin 0.6, AST 68 H, ALT 34, Alkaline Phosphatase 94, Troponin I 0.53 H, Total Protein 6.9, Albumin 4.0, Globulin 2.9, Albumin/Globulin Ratio 1.4, Lipase 116, Urine Color Yellow, Urine Appearance Clear, Urine pH 6.0, Ur Specific [place] 1.025, Urine Protein Trace, Urine Glucose (UA) Negative, Urine Ketones Negative, Urine Blood Trace-i, Urine Nitrate Negative, Urine Bilirubin Negative, Urine Urobilinogen 0.2, Ur Leukocyte Esterase Negative, Urine RBC 3-5, Urine WBC 3-5, Ur Squamous Epith Cells 3-5, Urine Bacteria 3+, SARS-CoV-2 (PCR) Not detected, Influenza A Untype (PCR) Detected A, Influenza Type B (PCR) Not detected 05/30/23 13:45: Troponin I 0.45 H 05/30/23 15:55: POC Glucose 95 05/30/23 17:20: APTT 75.8 H*, Troponin I 0.61 H 05/30/23 20:03: POC Glucose 120 H 05/31/23 00:15: APTT 82.6 H* 05/31/23 05:07: POC Glucose 117 H 05/31/23 06:43: WBC 8.7 D, RBC 4.09 L, Hgb 12.9, Hct 38.6, MCV 94.4, MCH 31.6 H , MCHC 33.5, RDW 14.8, Plt Count 110 L, MPV 9.7, Neut % (Auto) 65.4, Lymph % (Auto) 26.4, [place] % (Auto) 7.3, Eos % (Auto) 0.4, Baso % (Auto) 0.5, Neut # (Auto) 5.7, Lymph # (Auto) 2.3, [place] # (Auto) 0.6, Eos # (Auto) 0.0, Baso # (Auto) 0.0, APTT 94.5 H*, Sodium 135 L, Potassium 3.7, Chloride 102, Carbon Dioxide 25, Anion Gap 11.7, BUN 17, Creatinine 1.70 H D, Estimated Creat Clear 40, Estimated GFR 29 L, Est GFR ( Amer) 36 L, Glucose 122 H, Calcium 7.9 L, Magnesium 1.7, Total Bilirubin 0.6, AST 68 H, ALT 30, Alkaline Phosphatase 72, Troponin I 0.53 H, Total Protein 5.8 L, Albumin 3.2 L D, Globulin 2.6, Albumin/Globulin Ratio 1.2 I & O for Labs for Last 24 Hours: Intake & Output 05/28/23 05/29/23 05/30/23 05/31/23 23:59 23:59 23:59 23:59 Intake Total 520.800 / 520.800 606.45 / 606.45 Output Total 0 / 0 0 / 0 Balance 520.800 / 520.800 606.45 / 606.45 Weight 81.76 kg 84.992 kg Constitutional: Present no acute distress, obese, chronically ill appearing and cooperative Head: Present atraumatic ENT: Present normal exam Respiratory: Present rhonchi, crackles and normal respiratory effort; Absent wheezes Cardiac: Present Reg Rate and Rhythm GI: Present normal bowel sounds; Absent tenderness Extremities: Present normal inspection, full ROM and edema (Trace bilateral lower extremity) Skin: Present intact; Absent erythema Neuro: Present Grossly Intact, alert, awake and moves all extremities Comment:: Oriented to self and place. Very hard of hearing. Assessment and Plan *Assessment and plan (1) NSTEMI (non-ST elevated myocardial infarction): Status: Acute Category: Medical Code(s): I21.4 - Non-ST elevation (NSTEMI) myocardial infarction (2) Influenza A: Status: Acute Category: Medical Code(s): J10.1 - Influenza due to other identified influenza virus with other respiratory manifestations (3) Hypertensive urgency: Status: Acute Category: Medical Code(s): I16.0 - Hypertensive urgency (4) Diabetes mellitus with diabetic neuropathy: Status: Chronic Qualifiers: Diabetes mellitus type: type 2 Diabetes mellitus long wall shear operator insulin use: without long wall shear operator use Qualified Code(s): E11.40 - Type 2 diabetes mellitus with diabetic neuropathy, unspecified Category: Medical Code(s): E11.40 - Type 2 diabetes mellitus with diabetic neuropathy, unspecified (5) Breast cancer: Status: Acute Category: Medical Code(s): C50.919 - Malignant neoplasm of unspecified site of unspecified female breast (6) Hypothyroidism: Status: Chronic Qualifiers: Hypothyroidism type: acquired Qualified Code(s): E03.9 - Hypothyroidism, unspecified Category: Medical Code(s): E03.9 - Hypothyroidism, unspecified (7) Hearing impaired: Status: Acute Category: Medical Code(s): H91.90 - Unspecified hearing loss, unspecified ear Plan 72-year-old female with hypothyroid, hypertension, diabetes, history of breast cancer who presented with weakness and worsening shortness of breath over the past 3 days. Found to be flu positive with hypertensive urgency in the ER. Discussed case with ER physician, request admission for continued treatment of NSTEMI and flu with nitro drip and heparin drip. Blood pressure doing better. Weaned off nitro drip overnight. Transition off heparin drip today. Continues to require inpatient management given new oxygen requirement on flu. Problems addressed as follows: NSTEMI Hypertensive urgency -Blood pressure improved today. Discontinue nitro drip. -Troponin this morning stable at 0.53 no changes on telemetry -Resumed home bisoprolol 10 mg daily today. Initiated on irbesartan 75 mg luke ly. Also received amlodipine 10 mg this morning. Blood pressure better controlled to less than 130/80. -Aspirin 81 mg given this morning. Continue daily. Loaded with Plavix 300 mg once today, continue 75 mg daily starting tomorrow -Repeat EKG if patient develops chest pain -Cardiology consulted, discussed case this morning, recommend continuing to treat underlying illness. Will evaluate in the next 24 to 48 hours for possible heart cath. Will intervene urgently if develop STEMI. Differential diagnosis includes coronary artery disease, type II NSTEMI due to supply/demand mismatch, myocarditis from flu. -Will obtain echo at earliest available date pending availability of staff Influenza A -goal saturation greater 90%, currently on 2 L nasal cannula oxygen. -Continue Tamiflu, renally dosed at 30 mg twice daily given creatinine clearance. - White cell count normal at 8.7, repeat CBC ordered for the morning. -DuoNebs every 6 hours scheduled CKD: Creatinine 1. 7 this morning. Upper end of normal range for patient. Caution with nephrotoxins. Medications renally dosed. Repeat CMP in the morning Hypothyroidism: Continue home 112 mcg levothyroxine daily Diabetes: A1c 5.9, continue metformin 500 mg daily. Fingersticks ACHS with sliding scale insulin History of breast cancer: Holding on tamoxifen in the setting of acute illness. Hyperlipidemia: Continue home pravastatin 40 mg nightly Additionally today, family expressed concern for patient's hearing and possible mild cognitive impairment. They state that they have been noticing she has been more forgetful with her short-term memory over the last several months. She is very hard of hearing. Request referral for hearing screen. Also recommend outpatient eval for MCI/dementia Full code Lovenox 1 mg/kg twice daily Diabetic diet
[2023-05-31 11:49] LABS: POC Glucose,Bedside 108 (70-110)
[2023-05-31 16:18] LABS: POC Glucose,Bedside 139 (70-110)
[2023-05-31] MEDS: PRAVASTATIN 40MG TAB 40 MG PO (20:10)
[2023-05-31 20:11] LABS: POC Glucose,Bedside 127 (70-110)
[2023-06-01] VITALS (16 sets, daily range): BP systolic 114–132; BP diastolic 62–70; PULSE 70–100; RESP 17–24; TEMP 36.5–37.2; O2SAT 90–95; BMI 30.4; BMI 30.3
--- NOTE | 2023-06-01 03:42 | PC.NURSE ---
Patient stable upon transfer to [facility]. Remains on 2lnc stating >90%. Vitals stable. No acute changes noted. Report was handed off to NANNETTE Angeles
[2023-06-01] MEDS: IPRATROPIUM/ALBUTEROL 3 ML NEB IH ×4 (05:45→23:56)
[2023-06-01 06:06] LABS: POC Glucose,Bedside 85 (70-110)
[2023-06-01] MEDS: LEVOTHYROXINE 112MCG (0.112MG) TAB 112 MCG PO (06:08)
[2023-06-01 07:37] LABS: MANUAL DIFFERENTIAL MANUAL DIFFERENTIAL (MANUAL DIFF)
[2023-06-01 07:42] LABS: Basophils # 0.1 K/mm3 (0-0.2); Eosinophils % 0.4 % (0.1-12.0); Hematocrit 43.2 % (37.0-47.0); Hemoglobin 14.1 g/dL (12.2-16.2); Lymphocytes # 2.6 K/mm3 (0.7-4.5); Lymphocytes % 38.5 % (10-50); Mean Corpuscular HGB Conc 32.6 g/dL (31.8-35.4); Mean Corpuscular Hemoglobin 31.4 pg (27.0-31.2); Mean Corpuscular Volume 96.4 fl (81-99); Mean Platelet Volume 9.9 fl (7.4-10.4); Monocytes # 0.5 K/mm3 (0.1-1.0); Monocytes % 7.3 % (1.7-9.3); Neutrophils # 3.6 K/mm3 (1.8-7.8); Neutrophils % 52.8 % (37.0-80.0); Platelet Count 110 K/mm3 (142-424); Red Blood Count 4.48 M/mm3 (4.20-5.40); Red Cell Distribution Width 14.8 % (11.5-17.5); White Blood Count 6.8 K/mm3 (4.8-10.8)
--- NOTE | 2023-06-01 08:00 | EXP.ACUTE.PN ---
Subjective *Date: 06/01/23 *Time: 12:13 Interval history: 2 L of oxygen overnight. No nausea or vomiting. Still feeling weak. Denies any chest pain. Pleasant and interactive on exam. Family at bedside Medical Exam Vital signs and Labs for Last 24 Hours: Vital Signs Temp Pulse Pulse Resp BP Pulse Ox O2 Del Method 06/01/23 07:51 97.9 F 82 18 132/66 92 L Nasal Cannula 06/01/23 06:55 Nasal Cannula 06/01/23 05:45 94 L Nasal Cannula 06/01/23 05:45 76 06/01/23 05:45 78 06/01/23 04:00 70 06/01/23 05:00 Nasal Cannula 06/01/23 04:00 97.7 F 75 17 114/63 95 Nasal Cannula 06/01/23 00:00 100 H 06/01/23 02:00 82 18 129/70 94 L Nasal Cannula 06/01/23 00:38 98.8 F 06/01/23 00:00 92 H 05/31/23 23:53 101.2 F H 05/31/23 23:00 Nasal Cannula 05/31/23 23:20 77 05/31/23 23:19 73 05/31/23 22:00 86 18 133/71 93 L Nasal Cannula 05/31/23 20:00 90 05/31/23 20:00 98.9 F 85 18 127/66 94 L Nasal Cannula 05/31/23 20:00 93 H 05/31/23 19:19 76 05/31/23 19:19 72 05/31/23 18:06 Nasal Cannula 05/31/23 18:00 75 19 131/69 94 L Nasal Cannula 05/31/23 16:00 80 05/31/23 16:31 Nasal Cannula 05/31/23 15:00 Nasal Cannula 05/31/23 16:00 93 L Nasal Cannula 05/31/23 15:30 98.6 F 05/31/23 12:00 80 05/31/23 12:35 76 05/31/23 12:35 79 05/31/23 12:32 Nasal Cannula 05/31/23 11:00 Nasal Cannula 05/31/23 09:00 Nasal Cannula 05/31/23 12:00 79 32 H 130/72 92 L Nasal Cannula 05/31/23 11:00 83 35 H 116/62 92 L Nasal Cannula 05/31/23 10:00 94 H 33 H 143/71 H 90 L Nasal Cannula 05/31/23 09:00 101 H 32 H 135/71 90 L Nasal Cannula 05/31/23 12:00 98.7 F O2 Flow Rate 06/01/23 07:51 2 06/01/23 06:55 2 06/01/23 05:45 2 06/01/23 05:45 06/01/23 05:45 06/01/23 04:00 06/01/23 05:00 2 06/01/23 04:00 2 06/01/23 00:00 06/01/23 02:00 2 06/01/23 00:38 06/01/23 00:00 05/31/23 23:53 05/31/23 23:00 2 05/31/23 23:20 05/31/23 23:19 05/31/23 22:00 2 05/31/23 20:00 05/31/23 20:00 2 05/31/23 20:00 05/31/23 19:19 05/31/23 19:19 05/31/23 18:06 2 05/31/23 18:00 2 05/31/23 16:00 05/31/23 16:31 2 05/31/23 15:00 2 05/31/23 16:00 2 05/31/23 15:30 05/31/23 12:00 05/31/23 12:35 05/31/23 12:35 05/31/23 12:32 2 05/31/23 11:00 2 05/31/23 09:00 2 05/31/23 12:00 2 05/31/23 11:00 2 05/31/23 10:00 2 05/31/23 09:00 2 05/31/23 12:00 Intake and Output 05/31/23 06/01/23 06/01/23 23:59 07:59 15:59 Intake Total 600 / 1824.30 360 / 360 Output Total 0 / 800 0 / 0 Balance 600 / 1024.30 360 / 360 Intake: Intake, Oral Amount 600 / 1170 360 / 360 Output: Output, Urine Amount 0 / 800 0 / 0 Other: Number of Unmeasured Voids 1 2 Number of Bowel Movements 1 Weight 85.965 kg Patient Weight 06/01/23 23:59 Weight 85.965 kg Laboratory Results - last 24 hr 05/31/23 11:26: POC Glucose 108 05/31/23 16:10: POC Glucose 139 H 05/31/23 20:01: POC Glucose 127 H 06/01/23 05:58: POC Glucose 85 06/01/23 07:15: WBC 6.8, RBC 4.48, Hgb 14.1, Hct 43.2, MCV 96.4, MCH 31.4 H, MCHC 32.6, RDW 14.8, Plt Count 110 L, MPV 9.9, Neut % (Auto) 52.8, Lymph % (Auto) 38.5, [place] % (Auto) 7.3, Eos % (Auto) 0.4, Baso % (Auto) 1.0, Neut # (Auto) 3.6, Lymph # (Auto) 2.6, [place] # (Auto) 0.5, Eos # (Auto) 0.0, Baso # (Auto) 0.1, Magnesium 2.0 D I & O for Labs for Last 24 Hours: Intake & Output 05/29/23 05/30/23 05/31/23 06/01/23 23:59 23:59 23:59 23:59 Intake Total 520.800 / 559.340 2429.30 / 1824.30 360 / 360 Output Total 0 / 0 800 / 800 0 / 0 Balance 520.800 / 520.800 904.30 / 1024.30 360 / 360 Weight 81.76 kg 84.992 kg 85.965 kg Constitutional: Present no acute distress, obese, chronically ill appearing and cooperative Head: Present atraumatic ENT: Present normal exam Respiratory: Present rhonchi and normal respiratory effort; Absent wheezes or crackles Cardiac: Present Reg Rate and Rhythm GI: Present normal bowel sounds; Absent tenderness Extremities: Present normal inspection, full ROM and edema (Trace bilateral lower extremity) Skin: Present intact; Absent erythema Neuro: Present Grossly Intact, alert, awake and moves all extremities Comment:: Oriented to self and place. Very hard of hearing. 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 Diabetes mellitus type: type 2 Qualified Code(s): E11.40 - Type 2 diabetes mellitus with diabetic neuropathy, unspecified Category: Medical Code(s): E11.40 - Type 2 diabetes mellitus with diabetic neuropathy, unspecified (5) Breast cancer: Status: Acute Category: Medical Code(s): C50.919 - Malignant neoplasm of unspecified site of unspecified female breast (6) Hypothyroidism: Status: Chronic Qualifiers: Hypothyroidism type: acquired Qualified Code(s): E03.9 - Hypothyroidism, unspecified Category: Medical Code(s): E03.9 - Hypothyroidism, unspecified (7) Hearing impaired: Status: Acute Category: Medical Code(s): H91.90 - Unspecified hearing loss, unspecified ear Plan 72-year-old female with hypothyroid, hypertension, diabetes, history of breast cancer who presented with weakness and worsening shortness of breath over the past 3 days. Found to be flu positive with hypertensive urgency in the ER. Discussed case with ER physician, request admission for continued treatment of NSTEMI and flu with nitro drip and heparin drip. Blood pressure stable this morning on oral regimen. Weaning oxygen today, continues to require inpatient management, awaiting cards eval tomorrow for possible heart cath. Problems addressed as follows: NSTEMI Hypertensive urgency, resolved -Blood pressure goal less than 140/90. -No events on telemetry, continue monitoring. -Continue bisoprolol 10 mg daily, irbesartan 75 mg daily, amlodipine 10 mg daily -Aspirin 81 mg and Plavix 75 mg daily. - repeat EKG if patient develops chest pain -Cardiology consulted, Will evaluate in the next 24 to 48 hours for possible heart cath. Will intervene urgently if develop STEMI. Differential diagnosis includes coronary artery disease, type II NSTEMI due to supply/demand mismatch, myocarditis from flu. -Echo ordered for the morning Influenza A -goal saturation greater 90%, currently on 2 L nasal cannula oxygen. Will attempt to wean today. -Continue Tamiflu, renally dosed at 30 mg twice daily given creatinine clearance. - White cell count normal at 6.8, repeat CBC ordered for the morning. -DuoNebs every 6 hours scheduled CKD: Creatinine stable. Caution with nephrotoxins. Medications renally dosed. Repeat CMP in the morning Hypothyroidism: Continue home 112 mcg levothyroxine daily Diabetes: A1c 5.9, continue metformin 500 mg daily. Fingersticks ACHS with sliding scale insulin History of breast cancer: Holding on tamoxifen in the setting of acute illness. Hyperlipidemia: Continue home pravastatin 40 mg nightly Memory impairment: Recommend outpatient eval with [facility] or [facility]; family concern for MCI or dementia Hearing impairment: Will refer to ENT at discharge for screening and further management Full code Lovenox 1 mg/kg twice daily Diabetic diet
[2023-06-01 08:04] LABS: Lymphocytes % 33 % (10-50); Monocytes % 4 % (2-9); Neutrophils % 63 % (42-76); Platelet Estimate Slight Decrease; RBC Morphology Normal; Total Cells Counted 100
[2023-06-01] MEDS: ASPIRIN EC 81MG TABLET 81 MG PO (09:14)
[2023-06-01] MEDS: IRBESARTAN 75MG TABLET 75 MG PO (09:14)
[2023-06-01] MEDS: BISOPROLOL 5MG TABLET 10 MG PO (09:14)
[2023-06-01] MEDS: ENOXAPARIN 100MG/ML SYRINGE 85 MG SQ ×2 (09:14→20:20)
[2023-06-01] MEDS: CLOPIDOGREL 75MG TAB 75 MG PO (09:14)
[2023-06-01] MEDS: METFORMIN 500MG TABLET 500 MG PO (09:14)
[2023-06-01] MEDS: AMLODIPINE 10MG TABLET 10 MG PO (09:14)
[2023-06-01] MEDS: OSELTAMIVIR PHOSPHATE 6MG/ML ORAL SUSP 60ML 30 MG PO ×2 (09:21→20:20)
[2023-06-01 12:18] LABS: POC Glucose,Bedside 144 (70-110)
[2023-06-01 12:37] LABS: Chloride 104 mmol/L (98-107); Sodium 138 mmol/L (136-145)
[2023-06-01 12:38] LABS: Potassium 3.6 mmoL/L (3.5-5.1)
[2023-06-01 12:40] LABS: Blood Urea Nitrogen 19 mg/dl (7-17); Creatinine Clearance Estimated 42 mL/min (50-200); Estimated Glomerular Filt Rate 32 ml/min (>60); GFR (African American) 38 ML/MIN (>60)
[2023-06-01 12:41] LABS: Anion Gap 12.6 mEq/L (5-15); Carbon Dioxide 25 mmol/L (22.0-30.0); Glucose 113 mg/dl (74-100)
[2023-06-01 16:52] LABS: POC Glucose,Bedside 100 (70-110)
[2023-06-01] MEDS: PRAVASTATIN 40MG TAB 40 MG PO (20:20)
[2023-06-01 20:36] LABS: POC Glucose,Bedside 94 (70-110)
--- NOTE | 2023-06-01 22:50 | PC.NURSE ---
pt O2 sat @ 86%-87% on RA, applied 2L NC w/ O2 now 93%-95%
[2023-06-01] MEDS: GUAIFENESIN/DEXTROMETHORPHAN 200MG/20MG 10ML UDC 10 ML PO (22:52)
[2023-06-02] VITALS (11 sets, daily range): BP systolic 109–129; BP diastolic 59–73; PULSE 73–89; RESP 17–24; TEMP 36.6–36.8; O2SAT 92–96; BMI 28.9
[2023-06-02 05:54] LABS: POC Glucose,Bedside 74 (70-110)
[2023-06-02] MEDS: IPRATROPIUM/ALBUTEROL 3 ML NEB IH ×4 (06:02→23:03)
[2023-06-02] MEDS: LEVOTHYROXINE 112MCG (0.112MG) TAB 112 MCG PO (06:13)
[2023-06-02 06:37] LABS: Basophils # 0.1 K/mm3 (0-0.2); Basophils % 0.8 % (0.1-2.0); Eosinophils # 0.1 K/mm3 (0.0-0.4); Eosinophils % 2.3 % (0.1-12.0); Hemoglobin 13.9 g/dL (12.2-16.2); Lymphocytes % 35.1 % (10-50); Mean Corpuscular HGB Conc 32.2 g/dL (31.8-35.4); Mean Corpuscular Hemoglobin 31.4 pg (27.0-31.2); Mean Corpuscular Volume 97.4 fl (81-99); Mean Platelet Volume 9.8 fl (7.4-10.4); Monocytes # 0.4 K/mm3 (0.1-1.0); Monocytes % 6.6 % (1.7-9.3); Neutrophils # 3.2 K/mm3 (1.8-7.8); Neutrophils % 55.2 % (37.0-80.0); Platelet Count 115 K/mm3 (142-424); Red Blood Count 4.41 M/mm3 (4.20-5.40); Red Cell Distribution Width 14.7 % (11.5-17.5); White Blood Count 5.8 K/mm3 (4.8-10.8)
[2023-06-02 06:42] LABS: Alanine Aminotransferase 22 U/L (12-78); Albumin Level 3.1 g/dl (3.5-5.0); Albumin/Globulin Ratio 1.1 (1.1-1.8); Alkaline Phosphatase 73 U/L (38-126); Aspartate Amino Transferase 42 U/L (14-36); Bilirubin,Total 0.6 mg/dl (0.2-1.3); Blood Urea Nitrogen 23 mg/dl (7-17); Carbon Dioxide 27 mmol/L (22.0-30.0); Chloride 105 mmol/L (98-107); Creatinine Clearance Estimated 46 mL/min (50-200); Estimated Glomerular Filt Rate 37 ml/min (>60); GFR (African American) 45 ML/MIN (>60); Globulin 2.7 g/dL (1.3-3.2); Glucose 83 mg/dl (74-100); Magnesium 2.1 mg/dl (1.6-2.3); Sodium 136 mmol/L (136-145); Total Protein,Serum 5.8 g/dl (6.3-8.2)
[2023-06-02 06:49] LABS: Troponin I 0.13 ng/ml (0.00-0.034)
--- NOTE | 2023-06-02 06:54 | PC.NURSE ---
held metformin this AM pending possible heart cath per progress note. patient has been NPO since midnight.
--- NOTE | 2023-06-02 07:07 | CA_ITS ---
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 Ht: 170 ft 5 in Wt: 188lbs BSA: 23.48 BP: 163/89 mmHg Indications: Flu A +, NSTEMI, Breast CA Radiation L breast, HTV, HLD, DM, SOB 2D Dimensions Left Atrium 3.23 cm LVEF (Stafford's) 60.40 % LVOT 1.87 cm (M/F) 1.5-2.5 LV Volume 89.90 mL LA Volume 27.90 mL LA Volume Index 14.30 mL/m2 (M/F) 16-34 EF AP4 65.50 % EF AP2 53.5 % EF BP 60.4 % GL Strain -19.2 % M-Mode Dimensions RVDd 2.86 cm (0.9-2.6) LVDd 3.86 cm (3.5-5.7) Ao Diam 3.05 cm (2.0-3.7) LVDs 2.47 cm (3.5-5.7) IVSd 1.86 cm (0.6-1.1) PWd 0.97 cm (0.6-1.1) EF (Teich) 66.30% FS 36.00% EDV (Teich) 64.30 mL TAPSE 1.82 (<1.7) ESV (Teich) 21.70 mL LV Diastology E Decel Time 217 (160-240 msec) E/A Ratio 0.61 MED E' 4.7 (>= 7 cm/sec) MED A' 8.10 cm/s E'/MED E' Ratio 13.21 (<= 14) LAT E' 9.2 (>= 10 cm/sec) LAT A' 11.30 cm/s E/LAT E' Ratio 6.75 (<= 14) Aortic Valve LVOT Max 155.0 (70-110 cm/s) RADHA Index 1.18 cm2/m2 LVOT VTI 26.36 cm AoV Peak Bossman. 172.0 (50-130 cm/s) AI PHT 389.00 ms AO Peak GR. 14.20 mmHg AO Mean GR. 7.40 (<5 mmHg) AO VTI 31.5 (18-25 cm) RADHA (VTI) 2.30 (2.5-4.5 cm2) Mitral Valve MV E Max Bossman. 62.0 (40-130 cm/s) MV A Velocity 102.0 (40-130 cm/s) E/A Ratio 0.61 MV Decel. Time 217 (160-240 ms) Tricuspid Valve TR P. Velocity 250.00 cm/s RAP Estimate 10.00 mmHg RVSP 34.90 mmHg Left Ventricle The left ventricle is normal size. The left ventricular systolic function is normal. The left ventricular ejection fraction is within the normal range. There is increased LV wall thickness. Proximal septal thickening is noted. There is normal LV segmental wall motion. Transmitral Doppler flow pattern suggests impaired LV relaxation. LVEF is 55%. Right Ventricle The right ventricle is normal size. The right ventricular systolic function is normal. Atria The left atrium size is normal. The right atrium size is normal. There is no Doppler evidence of interatrial shunt. Aortic Valve The aortic valve is mildly thickened. There is no aortic valvular stenosis. Mild aortic regurgitation. Mitral Valve The mitral valve is mildly thickened. No evidence of mitral valve stenosis. Trace mitral regurgitation. Tricuspid Valve The tricuspid valve leaflets are thin and pliable. Trace tricuspid regurgitation. RVSP is 25-30 mmHg. Pulmonic Valve The pulmonary valve is normal in structure. Trace pulmonic regurgitation. Great Vessels The aortic root is normal in size. The ascending aorta is normal in size. IVC is normal in size and collapses >50% with inspiration. Pericardium There is no pericardial effusion. Other Information Study Quality: Fair Conclusion Normal biventricular systolic function. Mild AI. Electronically signed by : Zohreh Whyte MD 06/02/2023 17:59:59
--- OUTSIDE RECORDS SUMMARY | 2023-06-02 07:37 | XMS_ITS | Patient Health Record ---
Author Name Unknown Organization [facility] Address [address] [facility] [address] [place] [address] Care Team Providers Care Educational Fundraising Director Name Role Phone Krishan Caldwell Primary Care Provider [phone] ALLERGIES Allergen (clinical drug ingredient) Drug/Non Drug Allergy documented on EMR Reaction Allergy Type Onset Date Status niacin niacin Unknown Drug Allergy Active RESULTS Component Value Reference Range Notes M-Thyroid Stimulating Hormon e Reviewed date:11/05/2022 10:03:11 AM Interpretation: Performing Lab: Notes/Report: TSH 0.08 0.465-4.68 uIU/mL M-Lipid Panel Reviewed date:11/05/2022 10:03:11 AM Interpretation: Performing Lab: Notes/Report: Patient Fasting? Y TRIG 208 30-150 mg/dl CHOL 138 140-200 mg/dl DLDL 82.45 100-129 mg/dL VLDL 42 0-40 mg/dL HDL 29 40-60 mg/dl CHLHDL 4.8 1-3.5 M-Hemoglobin A1C Reviewed date:11/05/2022 10:03:11 AM Interpretation: Performing Lab: Notes/Report: HGBA1C 5.9 4.0-6.0 % < 6% Non-Diabetic Level < 7% Controlled Diabetic Level > 8% Poorly Controlled Diabetic Level M-Comprehensive Metabolic Pa luli Reviewed date:11/05/2022 10:03:11 AM Interpretation: Performing Lab: Notes/Report: NA 143 136-145 mmol/L K 4.1 3.5-5.1 mmoL/L CL 106 98-107 mmol/L CO2 27 22.0-30.0 mmol/L GAP 14.1 5-15 mEq/L BUN 19 7-17 mg/dl CREATT 1.50 0.52-1.04 mg/dl GFRAA 41 >60 ML/MIN EGFR 34 >60 ml/min GLU 71 74-100 mg/dl CA 9.4 8.4-10.2 mg/dl BILIT 0.6 0.2-1.3 mg/dl AST 53 14-36 U/L ALT 28 12-78 U/L TP 6.3 6.3-8.2 g/dl ALB 3.7 3.5-5.0 g/dl GLOB 2.6 1.3-3.2 g/dL AGRATIO 1.4 1.1-1.8 ALP 110 38-126 U/L M-Complete Blood Count Auto Diff Reviewed date:11/05/2022 10:03:11 AM Interpretation: Performing Lab: Notes/Report: WBC 7.9 4.8-10.8 K/mm3 RBC 4.52 4.20-5.40 M/mm3 HGB 13.7 12.2-16.2 g/dL HCT 42.8 37.0-47.0 % MCV 94.7 81-99 fl MCH 30.3 27.0-31.2 pg MCHC 32.0 31.8-35.4 g/dL RDW 14.2 11.5-17.5 % PLT 173 142-424 K/mm3 MPV 10.2 7.4-10.4 fl NE% 57.6 37.0-80.0 % LY% 30.2 10-50 % MO% 8.0 1.7-9.3 % EO% 3.7 0.1-12.0 % BA% 0.6 0.1-2.0 % NE# 4.5 1.8-7.8 K/mm3 LY# 2.4 0.7-4.5 K/mm3 MO# 0.6 0.1-1.0 K/mm3 EO# 0.3 0.0-0.4 K/mm3 BA# 0.1 0-0.2 K/mm3 MEDICATIONS Medication SIG (Take, Route, Frequency, Duration) Notes Start Date End Date Status EPA Fish Oil 1000 mg 1 cap(s) orally 2 times a day (with meals) for 30 days 11/03/2022 Active amLODIPine 10 mg 1 tab(s) orally once a day for 90 Active hydrOXYzine pamoate 25 mg 1 cap(s) orall y 3 times a day prn itching for 14 day(s) Active gabapentin 300 mg 1 cap(s) orally 3 times a day for 30 days 01/09/2023 Active triamcinolone topical 0.5% 1 manuel applied topically 2 times a day for 7 day(s) 12/30/2021 Active Meclizine Hydrochloride 25 mg 1 tab(s) o rally 3 times a day as needed for vertigo for 10 days 04/02/2022 Active Ondansetron Hydrochloride 4 mg 1 tab(s) orally every 8 hours as needed for nausea for 5 days 04/02/2022 Active Levothyroxine Sodium 112 mcg (0.112 mg) 1 tab(s) orally once a day for 90 days Active tiZANidine 4 mg 1-2 tab(s) orally every 8 hours PRN for 10 days 10/01/2021 Active Vitamin B-12 1000 mcg 1 JAMES sublingually once a day for 30 day(s) 07/23/2018 Active tamoxifen 20 mg 1 tab(s) orally once a day Active triamcinolone topical 0.5% 1 manuel applied topically 2 times a day prn 07/16/2018 Active magnesium oxide 400 mg 1 tab(s) orally b id for 90 days 11/10/2016 Active Tylenol 500 mg 2 tab(s) orally prn Active naproxen 500 mg 1 tab(s) orally 2 times a day (as needed) for 30 days Active Voltaren Topical 1% 2 g applied topicall y qid prn Active glimepiride 2 mg 1 tab(s) orally ever y morning with food for 30 day(s) Active ZyrTEC-D 5 mg-120 mg 1 tab(s) orally 2 times a day prn 03/14/2012 Active hydroCHLOROthiazide 25 mg 1 tab(s) orall y once a day for 90 days Active Hair, Skin, Nails 5 mg 1 cap(s) orally o nce a day Active Bisoprolol Fumarate 10 mg 1 tab(s) orall y once a day for 90 Active gentamicin topical 0.1% 1 manuel applied topically 4 times a day for 7 day(s) Active azelastine nasal 137 mcg/inh 2 spray(s) intranasally 2 times a day for 30 day(s) prn Active fluticasone topical 0.05% 1 manuel applied topically 2 times a day for 14 day(s) 09/23/2021 Active MetFORMIN Hydrochloride 500 mg 1 tab(s) orally once a day for 30 day(s) Active triamcinolone topical 0.5% 1 manuel applied topically 2 times a day for 7 days 02/04/2023 Active pravastatin 40 mg 1 tab orally once a day for 90 day(s) Active IMMUNIZATIONS Vaccine Route Administration Date Status Comme nts Adacel (Tdap) IM Intramuscular 07/06/2015 Administered SOCIAL HISTORY Sex Assigned At : Social History Observation Description Sex Assigned At Unknown PROBLEMS Problem Type ICD Code Onset Dates Problem Status W/U Status Risk SNOMED Code Notes Problem Generalized anxiety disorder (F41.1) Active confirmed 31617304 Problem Polyneuropathy in diseases classified elsewhere (G63) Active confirmed 836388682 Problem Vasomotor rhinitis (J30.0) Active confirmed 0935773 Problem Arthritis (M19.90) Active confirmed 372 3001 Problem Hyperlipemia, idiopathic familial (E78.5) Active confirmed 085591305 Problem B12 deficiency (E53.8) Active confirmed 408272843 Problem Hypertension, essential (I10) Active confirmed 15386228 Problem Impacted cerumen of right ear (H61.21) Active confirmed 35640810 Problem Thrombocytopenia (D69.6) Active confirmed 899401359 Problem Acquired hypothyroidism (E03.9) Active confirmed 522763464 Problem Primary osteoarthritis involving multiple joints (M15.0) Active confirmed 336527934 Problem Idiopathic neuropathy (G60.9) Active confirmed 092379887 Problem Healthcare maintenance (Z00.00) Active confirmed 551659166 Problem Skin lesion of scalp (L98.9) Active confirmed 304203546944 Problem Adenocarcinoma of right breast (C50.911) Active confirmed 098499851 Problem Hand arthritis (M19.049) Active confirmed 812981550 Problem Stage 3 chronic kidney disease (N18.3) Active confirmed 168803626 Problem Type 2 diabetes mellitus with diabetic neuropathy, without long-term current use of insulin (E11.40) Active confirmed 77170796 Problem Stasis dermatitis of both legs (I87.2) Active confirmed 72966575 Problem Neuralgia of right upper extremity (M79.2) Active confirmed 99122233173353348 VITAL SIGNS Heart Rate 74 /min 05/06/2023 Temperature 97.9 degrees Fahrenheit 05/06/2023 Blood pressure diastolic 62 mm Hg 05/06/2023 Height 5 ft 6.75 in in 05/06/2023 Blood pressure systolic 120 mm Hg 05/06/2023 Weight 180.4 lbs 05/06/2023 BMI 28.46 kg/m2 05/06/2023 Encounters Encounter Location Date Provider Diagnosis [facility] [address] [place], [place] [address] 07/16/2022 Krishan Besson Hyperlipemia, idiopathic familial E78.5 ; Hypertension, essential I10 and Polyneuropathy in diseases classified elsewhere G63 [facility] [address] [place], [place] [address] 11/03/2022 Krishan Besson Hyperlipemia, idiopathic familial E78.5 ; Arthritis M19.90 ; Acquired hypothyroidism E03.9 ; Hypertension, essential I10 ; Idiopathic neuropathy G60.9 and Routine medical exam Z00.00 [facility] [address] [place] [address] 02/04/2023 Krishan Besson Contact dermatitis o f lower leg L25.9 ; Type 2 diabetes mellitus with diabetic neuropathy, without long-term current use of insulin E11.40 and High risk medication use Z79.899 [facility] [address] [place], [place] [address] 05/06/2023 Krishan Besson Hypertension, essent ial I10 ; Arthritis M19.90 and Acquired hypothyroidism E03.9 [facility] [address] [facility] [address] [place] [address] 09/08/2022 Krishan Besson Idiopathic neuropath y G60.9 [facility] [address] [facility] [address] [place], [place] [address] 11/07/2022 Krishan Besson [facility] [address] [place] [address] 11/24/2022 Krishan Besson [facility] [address] [place], [place] [address] 01/09/2023 Krishan Caldwell Idiopathic neuropath y G60.9 [facility] [address] [place], [place] [address] 02/20/2023 Krishan Caldwell [facility] [place] [address] [facility] [place] [address] 02/27/2023 Krishan Caldwell ASSESSMENTS Encounter Date Diagnosis Assessment Notes Treatment Notes Treatment Clinical Notes 05/06/2023 Arthritis (ICD-10 - M19.90) Continue gabapentin, emphasized to patient need to take her own medication. We will do UDS on both her and her today to ensure compliance with this 05/06/2023 Hypertension, essential (ICD-10 - I10) Blood pressure good control. No changes 01/09/2023 Idiopathic neuropathy (ICD-10 - G60.9) 11/03/2022 Arthritis (ICD-10 - M19.90) Trial of fish oil twice daily to help with her joint supplementation. 11/03/2022 Hyperlipemia, idiopathic familial (ICD-10 - E78.5) Check labs as noted to monitor her chronic medical problems. I will review all labs personally. 09/08/2022 Idiopathic neuropathy (ICD-10 - G60.9) 07/16/2022 Hyperlipemia, idiopathic familial (ICD-10 - E78.5) Overall doing well. Appropriate with medication refills. No changes in plan. Will be due for labs in 3 months. Good blood pressure control. 07/16/2022 Hypertension, essential (ICD-10 - I10) 02/04/2023 Type 2 diabetes mellitus with diabetic neuropathy, without long-term current use of insulin (ICD-10 - E11.40) A1c doing well. Neuropathy symptoms seem well managed with gabapentin. Fall risk noted. She seems to be doing well minimizing this. 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 Triamcinolone ointment 07/16/2022 Polyneuropathy in diseases classified elsewhere (ICD-10 - G63) 02/04/2023 High risk medication use (ICD-10 - Z79.899) Due for urine drug screen because of her gabapentin/controll ed substance use. This will be reviewed by me personally. Follow-up 3 months for labs 11/03/2022 Acquired hypothyroidism (ICD-10 - E03.9) 05/06/2023 Acquired hypothyroidism (ICD-10 - E03.9) Clinically euthyroid. Follow-up 3 months for medication reevaluation and labs 11/03/2022 Hypertension, essential (ICD-10 - I10) 11/03/2022 Idiopathic neuropathy (ICD-10 - G60.9) 11/03/2022 Routine medical exam (ICD-10 - Z00.00) Up-to-date with breast cancer follow-ups, colon screening, vaccinations. No falls. Fairly good functional status in spite of her multiple problems. PLAN OF TREATMENT Pending Test Test Name Order Date Holter Monitor, 24 Hour 05/16/2009 Physical Therapy 02/21/2015 Mammogram : Bilateral 09/06/2015 Mammogram : Bilateral 05/12/2016 MRI : Hand, Right 07/27/2015 H-LIPID PANEL 12/03/2009 H-LIPID PANEL 11/06/2010 C-CBC 06/18/2009 C-CBC 02/09/2017 C-CBC 04/08/2010 C-CBC 03/15/2012 C-CMP 04/08/2010 C-CMP 03/15/2012 C-CMP 06/18/2009 C-CMP 02/09/2017 C-LIPID PANEL 02/09/2017 C-LIPID PANEL 06/18/2009 C-LIPID PANEL 03/15/2012 C-LIPID PANEL 04/08/2010 C-TSH 04/08/2010 C-TSH 06/18/2009 C-TSH 02/09/2017 C-URINE CULTURE 11/12/2009 C-MISC CULTURE 01/26/2012 Uric Acid, Serum 08/05/2012 M-Peripheral Smear Review 12/05/2020 M-Vitamin B12 12/05/2020 M-Iron and TIBC 12/05/2020 Future Test Test Name Order Date C-HGBA1C 12/29/2008 H-TSH 11/07/2013 Next Appt Details Provider Name:Krishan Caldwell, 08/12/2023 09:30:00 AM, [address], [address], [place], [address], Insurance Providers Payer Name Payer Address Payer Phone Subscriber Number Group Number Insured Name Patient Relationship to Insured Coverage Start Date Coverage End Date [employer] [place] [address] [address] [place] [phone] [id number] Lavinia Iyer Self - patient is the insured MEDICATIONS ADMINISTERED Medication Instructions Date of Administration Dosage Notes Kenalog 05/30/2014 1 mL MEDICAL (GENERAL) HISTORY Medical History History ICD Code hypercholestrolemia hypertension hypothyroidism Arthritis carpal tunnel breast cancer - s/p excicion 2017 - normal mammogram f/u 06/20 and normal 07/24 normal bone density DEXA scan -- also normal 04/2021 C-scope 12/19 with multiple t ubular adenomas - repeated 12/20 with isolated tubular adenoma - 3 year f/u recommended vertigo Surgical History Surgery Date(Month/Year) lumpectomy-rt breast 07/2016 Tubal ligation 1980s
[2023-06-02] MEDS: BISOPROLOL 5MG TABLET 10 MG PO (08:51)
[2023-06-02] MEDS: ASPIRIN EC 81MG TABLET 81 MG PO (08:52)
[2023-06-02] MEDS: AMLODIPINE 10MG TABLET 10 MG PO (08:52)
[2023-06-02] MEDS: CLOPIDOGREL 75MG TAB 75 MG PO (08:52)
[2023-06-02] MEDS: IRBESARTAN 75MG TABLET 75 MG PO (08:52)
[2023-06-02] MEDS: OSELTAMIVIR PHOSPHATE 6MG/ML ORAL SUSP 60ML 30 MG PO ×2 (08:54→21:27)
--- NOTE | 2023-06-02 11:30 | XR_ITS ---
FINAL REPORT CLINICAL HISTORY: SOB COMPARISON: June 2021 FINDINGS: The heart size is normal. The mediastinum is within normal limits. There is mild right basilar opacity. There is no pleural effusion. There is no pneumothorax. The bony thorax is intact. IMPRESSION: Mild right basilar opacity could represent atelectasis or pneumonia. Reviewed, Interpreted and Dictated by Juno Barahona III, MD Transcribed by Zack Burgos Authenticated and [facility]
--- NOTE | 2023-06-02 11:31 | PC.NURSE ---
Courtesy Round Patient awake with visitors at bedside. Trash and linens emptied. Patient voiced no needs at this time. Call light left within reach
--- NOTE | 2023-06-02 11:37 | P.PN_ITS ---
Subjective *Date: 06/02/23 *Time: 11:37 Interval history: seen at bedside, complains of SOB on exertion, denied CP, N/V. no acute events overnight Exam Data for Last 24 hours Vital signs and Labs for Last 24 Hours: Temp Pulse Resp BP Pulse Ox O2 Del Method O2 Flow Rate 97.8 F 75 20 129/73 92 L Room Air 2 06/02/23 08:00 06/02/23 11:13 06/02/23 08:00 06/02/23 08:00 06/02/23 11:13 06/02/23 11:13 06/02/23 08:00 Laboratory Results - last 24 hr 06/01/23 07:15: Sodium 138, Potassium 3.6, Chloride 104, Carbon Dioxide 25, Anion Gap 12.6, BUN 19 H, Creatinine 1.60 H, Estimated Creat Clear 42, Estimated GFR 32 L, Est GFR ( Amer) 38 L, Glucose 113 H, Calcium 8.0 L 06/01/23 12:02: POC Glucose 144 H 06/01/23 16:32: POC Glucose 100 06/01/23 20:18: POC Glucose 94 06/02/23 05:47: POC Glucose 74 06/02/23 05:48: WBC 5.8, RBC 4.41, Hgb 13.9, Hct 43.0, MCV 97.4, MCH 31.4 H, MCHC 32.2, RDW 14.7, Plt Count 115 L, MPV 9.8, Neut % (Auto) 55.2, Lymph % (Auto) 35.1, [place] % (Auto) 6.6, Eos % (Auto) 2.3, Baso % (Auto) 0.8, Neut # (Auto) 3.2, Lymph # (Auto) 2.0, [place] # (Auto) 0.4, Eos # (Auto) 0.1, Baso # (Auto) 0.1, Sodium 136, Potassium 4.0, Chloride 105, Carbon Dioxide 27, Anion Gap 8.0, BUN 23 H, Creatinine 1.40 H, Estimated Creat Clear 46, Estimated GFR 37 L, Est GFR ( Amer) 45 L, Glucose 83 D, Calcium 8.0 L, Magnesium 2.1, Total Bilirubin 0.6, AST 42 H D, ALT 22 D, Alkaline Phosphatase 73, Troponin I 0.13 H, Total Protein 5.8 L, Albumin 3.1 L, Globulin 2.7, Albumin/Globulin Ratio 1.1 I & O for Last 24 hours: Intake & Output 05/30/23 05/31/23 06/01/23 06/02/23 23:59 23:59 23:59 23:59 Intake Total 520.800 / 683.203 2240.30 / 1824.30 950 / 950 Output Total 0 / 0 800 / 800 0 / 0 0 / 0 Balance 520.800 / 520.800 904.30 / 1024.30 950 / 950 0 / 0 Weight 81.76 kg 84.992 kg 85.69 kg 81.675 kg Constitutional Constitutional: no acute distress *Routine HEENT Exam Head: Present normocephalic Eye: Present EOMI and PERRL ENT: Present mucous membranes moist *Routine Neck Exam Neck: Present supple; Absent lymphadenopathy *Routine Respiratory Exam Respiratory: Present CTA bilaterally *Routine Cardiovascular Exam Cardiovascular: Present RRR *Routine Abdominal Exam Abdominal: Present soft and normoactive bowel sounds; Absent tenderness *Routine Extremities Exam Extremities: Absent cyanosis, clubbing or edema *Routine Skin Exam Skin: Present warm; Absent rash *Routine Neurological Exam Neurological: Present alert and oriented X3 Assessment and Plan *Assessment and plan (1) NSTEMI (non-ST elevated myocardial infarction): Status: Acute Category: Medical Code(s): I21.4 - Non-ST elevation (NSTEMI) myocardial infarction (2) Influenza A: Status: Acute Category: Medical Code(s): J10.1 - Influenza due to other identified influenza virus with other respiratory manifestations (3) Hypertensive urgency: Status: Acute Category: Medical Code(s): I16.0 - Hypertensive urgency (4) Diabetes mellitus with diabetic neuropathy: Status: Chronic Qualifiers: Diabetes mellitus type: type 2 Diabetes mellitus custodial insulin use: without superintendent container terminal use Qualified Code(s): E11.40 - Type 2 diabetes mellitus with diabetic neuropathy, unspecified Category: Medical Code(s): E11.40 - Type 2 diabetes mellitus with diabetic neuropathy, unspecified (5) Breast cancer: Status: Acute Category: Medical Code(s): C50.919 - Malignant neoplasm of unspecified site of unspecified female breast (6) Hypothyroidism: Status: Chronic Qualifiers: Hypothyroidism type: acquired Qualified Code(s): E03.9 - Hypothyroidism, unspecified Category: Medical Code(s): E03.9 - Hypothyroidism, unspecified (7) Hearing impaired: Status: Acute Category: Medical Code(s): H91.90 - Unspecified hearing loss, unspecified ear Plan 72-year-old female with hypothyroid, hypertension, diabetes, history of breast cancer who presented with weakness and worsening shortness of breath over the past 3 days. Found to be flu positive with hypertensive urgency in the ER. Discussed case with ER physician, request admission for continued treatment of NSTEMI and flu with nitro drip and heparin drip. Blood pressure stable this morning on oral regimen. Weaning oxygen today, continues to require inpatient management, awaiting cards eval tomorrow for possible heart cath. Problems addressed as follows: NSTEMI Hypertensive urgency, resolved -Blood pressure goal less than 140/90. -continue on telemetry -Continue bisoprolol 10 mg daily, irbesartan 75 mg daily, amlodipine 10 mg daily -Aspirin 81 mg and Plavix 75 mg daily. - repeat EKG if patient develops chest pain -Cardiology consulted, Will evaluate in the next 24 to 48 hours for possible heart cath. Will intervene urgently if develop STEMI. Differential diagnosis includes coronary artery disease, type II NSTEMI due to supply/demand mismatch, myocarditis from flu. -Echo ordered for the morning - await final Cardiology recs - less likely plan for inpatient cath in presence of Influenza A Influenza A on 2L NC, wean as tolerated -Continue Tamiflu, renally dosed at 30 mg twice daily given creatinine clearance. -DuoNebs every 6 hours scheduled CKD: Creatinine stable. Caution with nephrotoxins. Medications renally dosed. Repeat CMP in the morning Hypothyroidism: Continue home 112 mcg levothyroxine daily Diabetes: A1c 5.9, continue metformin 500 mg daily. Fingersticks ACHS with slid ing scale insulin History of breast cancer: Holding on tamoxifen in the setting of acute illness. Hyperlipidemia: Continue home pravastatin 40 mg nightly Memory impairment: Recommend outpatient eval with [facility] or [facility]; family concern for MCI or dementia Hearing impairment: Will refer to ENT at discharge for screening and further management Full code Lovenox 1 mg/kg twice daily Diabetic diet Plan - wean O2 as tolerated, consult PT/OT, ambulate, continue Tamiflu
[2023-06-02 11:42] LABS: POC Glucose,Bedside 112 (70-110)
--- NOTE | 2023-06-02 12:01 | EXP.CARD.CON ---
History of Present Illness History of Present Illness Consult date: 06/02/23 Requesting physician: Jerry Barreto Consult reason: shortness of breath Chief complaint: SOA, Flu, NSTEMI Additional Medical History:: 1. History of breast cancer, 06/2016 A. Status postlumpectomy, radiation and chemotherapy 2. Coronary artery calcification seen on CT of the chest 3. Hypertension 4. Hyperlipidemia 5. Influenza A infection, 06/2023 History of present illness: Ms. Iyer is a 72-year-old female with history of previous breast cancer, hypertension, hyperlipidemia. She presented to the ER for evaluation of worsening shortness of breath and fatigue. Reports having had a cough for couple weeks but has gotten significantly worse over the past 3 days. Increased shortness of breath. Denies any chest pain, confusion, syncope, nausea or vomiting. No oxygen requirement in the ER workup are concerning for hypertensive urgency, found to be flu positive. Noted to have elevated troponin 0.5. Cardiology was consulted and patient was started on a heparin drip and nitroglycerin drip. Given NSTEMI, flu A, and hypertensive urgency, medicine was consulted for admission. Patient admitted to stepdown status for continued IV drip treatment. After arriving to the floor, patient states that she has no chest pain at this time. Blood pressure responding to nitro drip. Minimal cough. Developed a fever by the time she arrived to the floor. Received dose of metoprolol 25 mg p.o. in the ER. Normally takes bisoprolol at home but has not taken it today. The above per Dr. Barreto Events as noted above discussed with the patient and confirmed. Cardiology consulted for non-STEMI. Patient currently is pain-free. Blood pressure has been controlled since shortly after admission. Patient is no longer on nitroglycerin drip and is controlled with oral beta-maribel therapy. No prior cardiac history. Non-smoker Family history pertinent for early coronary artery disease and multiple family members who were smokers. She is diabetic and has been treated for several years EKG on admission was sinus tachycardia at 100 bpm with septal infarct pattern unchanged compared to [address] segment changes noted. [facility] Disclaimer: The information contained in this section may have been updated after the patient was seen, as this information can be updated by other users. Medical History Breast cancer Surgical History History of breast biopsy History of colonoscopy Family History No significant family history Social History Smoking Status: Never smoker second hand exposure: No alcohol intake: never counseling provided: none substance use type: denies use current occupational status: retired Travel in the last 8 weeks: None household members: spouse housing: house current occupational exposures/hazards: No caffeine: Yes Review of Systems Review of Systems Review of systems:: pertinent systems reviewed and negative unless documented below *Cardiovascular Cardiovascular: Reports chest pain and Reports dyspnea on exertion *Respiratory Respiratory: Reports dyspnea on exertion Exam Data for Last 24 hours Vital signs and Labs for Last 24 Hours: Temp Pulse Resp BP Pulse Ox O2 Del Method O2 Flow Rate 97.8 F 75 20 129/73 92 L Room Air 2 06/02/23 08:00 06/02/23 11:13 06/02/23 08:00 06/02/23 08:00 06/02/23 11:13 06/02/23 11:13 06/02/23 08:00 Laboratory Results - last 24 hr 06/01/23 07:15: Sodium 138, Potassium 3.6, Chloride 104, Carbon Dioxide 25, Anion Gap 12.6, BUN 19 H, Creatinine 1.60 H, Estimated Creat Clear 42, Estimated GFR 32 L, Est GFR ( Amer) 38 L, Glucose 113 H, Calcium 8.0 L 06/01/23 12:02: POC Glucose 144 H 06/01/23 16:32: POC Glucose 100 06/01/23 20:18: POC Glucose 94 06/02/23 05:47: POC Glucose 74 06/02/23 05:48: WBC 5.8, RBC 4.41, Hgb 13.9, Hct 43.0, MCV 97.4, MCH 31.4 H, MCHC 32.2, RDW 14.7, Plt Count 115 L, MPV 9.8, Neut % (Auto) 55.2, Lymph % (Auto) 35.1, [place] % (Auto) 6.6, Eos % (Auto) 2.3, Baso % (Auto) 0.8, Neut # (Auto) 3.2, Lymph # (Auto) 2.0, [place] # (Auto) 0.4, Eos # (Auto) 0.1, Baso # (Auto) 0.1, Sodium 136, Potassium 4.0, Chloride 105, Carbon Dioxide 27, Anion Gap 8.0, BUN 23 H, Creatinine 1.40 H, Estimated Creat Clear 46, Estimated GFR 37 L, Est GFR ( Amer) 45 L, Glucose 83 D, Calcium 8.0 L, Magnesium 2.1, Total Bilirubin 0.6, AST 42 H D, ALT 22 D, Alkaline Phosphatase 73, Troponin I 0.13 H, Total Protein 5.8 L, Albumin 3.1 L, Globulin 2.7, Albumin/Globulin Ratio 1.1 06/02/23 11:23: POC Glucose 112 H I & O for Last 24 hours: Intake & Output 05/31/23 06/01/23 06/02/23 06/03/23 11:59 11:59 11:59 11:59 Intake Total 1445.100 / 6594.015 8280 / 1140 590 / 590 Output Total 0 / 800 800 / 800 0 / 0 Balance 1445.100 / 825.100 340 / 340 590 / 590 Weight 187 lb 6 oz 189 lb 8.326 oz 180 lb 1 oz Constitutional Constitutional: no acute distress *Routine Respiratory Exam Respiratory: Present diminished air movement; Absent wheezes or crackles *Routine Cardiovascular Exam Cardiovascular: Present RRR; Absent murmur, gallop or rubs *Routine Extremities Exam Extremities: Present edema *Routine Neurological Exam Neurological: Present alert, oriented X3 and CN II-XII intact Meds Home Medications and Allergies Home Medications Medication Instructions Recorded Confirmed Type pravastatin 40 mg tablet 40 mg PO HS Cholesterol 06/23/17 05/30/23 History amlodipine 10 mg tablet 10 mg PO DAILY High Blood Pressure 03/28/19 05/30/23 History #90 tabs bisoprolol fumarate 10 mg tablet 10 mg PO DAILY High Blood Pressure 01/26/20 05/30/23 History hydrochlorothiazide 25 mg tablet 25 mg PO DAILY Fluid 12/18/20 05/30/23 History levothyroxine 112 mcg tablet 112 mcg PO DAILYDM THYROID 01/13/22 05/30/23 History naproxen 500 mg tablet 500 mg PO BIDP PRN Mild Pain 01/13/22 05/30/23 History (Scale Score 1-4) tamoxifen 20 mg tablet 20 mg PO DAILY CHEMOTHERAPY 02/27/22 05/30/23 History glimepiride 2 mg tablet 2 mg PO DAILYDM Diabetes 07/23/22 05/30/23 History metformin 500 mg tablet 500 mg PO DAILYDM Diabetes 07/23/22 05/30/23 History hydroxyzine pamoate 25 mg capsule 25 mg PO TIDP PRN Itching 05/30/23 05/30/23 History New Prescriptions to Start Prescriptions: Allergies Allergy/AdvReac Type Severity Reaction Status Date / Time niacin [NIACIN] Allergy Intermediate I-RASH Verified 02/27/23 10:03 Assessment and Plan *Assessment and plan (1) Influenza A: Status: Acute Category: Medical Code(s): J10.1 - Influenza due to other identified influenza virus with other respiratory manifestations (2) NSTEMI (non-ST elevated myocardial infarction): Status: Acute Category: Medical Code(s): I21.4 - Non-ST elevation (NSTEMI) myocardial infarction (3) Hypertensive urgency: Status: Acute Category: Medical Code(s): I16.0 - Hypertensive urgency (4) Hearing impaired: Status: Acute Qualifiers: Hearing loss type: unspecified Laterality: unspecified laterality Qualified Code(s): H91.90 - Unspecified hearing loss, unspecified ear Category: Medical Code(s): H91.90 - Unspecified hearing loss, unspecified ear (5) Hypothyroidism: Status: Chronic Qualifiers: Hypothyroidism type: acquired Qualified Code(s): E03.9 - Hypothyroidism, unspecified Category: Medical Code(s): E03.9 - Hypothyroidism, unspecified (6) Diabetes mellitus: Status: Acute Qualifiers: Diabetes mellitus complication status: with other specified complication Diabetes mellitus ad terminal makeup operator insulin use: without ad terminal makeup operator use Diabetes mellitus type: type 2 Qualified Code(s): E11.69 - Type 2 diabetes mellitus with other specified complication Category: Medical Code(s): E11.9 - Type 2 diabetes mellitus without complications (7) History of breast cancer in female: Status: Acute Category: Medical Code(s): Z85.3 - Personal history of malignant neoplasm of breast Plan 1. Shortness of breath with influenza type a infection -Patient is on Tamiflu and nebulizer treatments 2. Elevated troponin/non-STEMI -Continue aspirin, beta-maribel, amlodipine and Plavix. Patient did receive Lovenox overnight -Echocardiogram preliminary results show preserved ejection fraction -Patient currently not having further chest pain and would recommend outpatient cardiac cath once she has recovered from the flu. 3. Diabetes mellitus, treatment per hospitalist -Hemoglobin A1c 5.9 this admission 4. Hypothyroidism -continue supplementation 6. History of right-sided breast cancer -status post surgery, radiation and chemotherapy 7. Hypertensive urgency on admission, resolved -Continue Avapro, amlodipine and bisoprolol 8. Hyperlipidemia, continue statin therapy with LDL goal less than 55 -LDL 82 in October 2019 Clinically stable from a cardiac standpoint for discharge home. Early follow-up next week for planning of left heart catheterization as an outpatient. Patient is aware that if chest discomfort recurs in the last for more than a few minutes then she can come to the ER for further evaluation and treatment. Home medication recommendations: Amlodipine 10 mg daily Bisoprolol 10 mg daily Aspirin 81 mg daily Plavix 75 mg daily Pravastatin 40 mg daily Avapro 75 mg daily Resume HCTZ 25 mg daily Will consider addition of Jardiance or Farxiga as an outpatient.
--- NOTE | 2023-06-02 13:33 | HMH.OTEV ---
OT Inpatient Evaluation Rehab OT IP Evaluation Start: 06/02/23 11:30 Freq: ONCE Status: Active Protocol: Document 06/02/23 13:28 [facility] (Rec: 06/02/23 13:33 [facility] [id number]) Rehab OT IP Assessment Subjective History Pt oriented x 3 on arrival. Pt agreeable to engage in therapy evaluation. Pt was admitted on 05/30/23 due to flu, NSTEMI, hypertensive emergency, and myocarditis. Prior to being in the hospital , pt lived at home with her . Pt's daughter and son in law live in a camper in her backyard. 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 She was independent with all ADLs and IADLs. She would use a walking stick when she went to the barn, but other than that she did not require any type of AE. She was also still driving. History and physical: Ms. Iyer is a 72-year-old female with history of previous breast cancer, hypertension, hyperlipidemia. She presented to the ER for evaluation of worsening shortness of breath and fatigue. Reports having had a cough for couple weeks but has gotten significantly worse over the past 3 days. Increased shortness of breath. Denies any chest pain, confusion, syncope, nausea or vomiting. No oxygen requirement in the ER workup are concerning for hypertensive urgency, found to be flu positive. Noted to have elevated troponin 0.5. Cardiology was consulted and patient was started on a heparin drip and nitroglycerin drip. Given NSTEMI, flu A, and hypertensive urgency, medicine was consulted for admission. Patient admitted to stepdown status for continued IV drip treatment. After arriving to the floor, patient states that she has no chest pain at this time. Blood pressure responding to nitro drip. Minimal cough. Developed a fever by the time she arrived to the floor. Received dose of metoprolol 25 mg p.o. in the ER. 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 Objective Patient Orientation Person,Place,Birthday Right Upper Extremity Gross ROM WFL Left Upper Extremity Gross ROM Min Limitation <25% Bed Mobility bed mobility-scooting,bed mobility - supine/sit Assist Level Contact Guard/Hand Hold Transfer Training Sit/Stand Transfer Assist Level Contact Guard/Hand Hold Chair Transfer Assistive Devices Rolling Walker Rehab OT IP prob,goals,plan Problems Date of Evaluation: 06/02/23 OT IP Problems Bed Mobility,Transfers,Balance ,Self care,Safety Rehab Potential Rehab Potential Good Equipment Needs Assistive Devices Rolling / Wheeled Walker Plan OT intervention Plan Bed Mobility,Transfers,Balance ,Self care,Safety,Therapeutic Exercise OT Plan Frequency BID Duration LOS Discharge Goals Bed Mobility Ability Standby Assistance Sit to Stand Chair Transfer Ability Supervision/Stand by Chair Transfer Ability Supervision/Stand by Chair Transfer Technique Sit to/from Ambulatory Chair Transfer Assistive Devices Rolling Walker Feeding Ability Assist with Tray Set Up Lower Body Dressing Ability Minimal Assistance Upper Body Dressing Ability Standby Assistance Bathing Ability Minimal Assistance Performing Toilet Hygiene Ability Standby Assistance Overall Commode/Toilet Transfer Ability Standby Assistance Commode/Toilet Transfer Technique Sit to/from Ambulatory Oral Care Assist Independent Decrease in Endurance No Discharge Plan OT Discharge Plan Pt will continue to be seen for OT services while at [facility]. Pt can return home with family assistance once she is medically stable per physician . Therapist recommends OT evaluation upon returning home . Continued skilled therapy is important for patient to improve strength, safety, endurance, ADL independence, and functional transfers to reach PLOF. Eval Complexity Eval Charge Codes 57214 - Moderate Complexity PHYSICIAN CERTIFICATION: I certify the specified therapy services for Lavinia Iyer are required, authorized, and reviewed every 30 days.
--- NOTE | 2023-06-02 13:36 | HMH.PTEV ---
Physical Therapy Evaluation Rehab PT IP Evaluation Start: 06/02/23 11:30 Freq: ONCE Status: Active Protocol: Document 06/02/23 13:26 [id number] (Rec: 06/02/23 13:36 CAREYMariza [id number]) Subjective/History History History Pt is a 72 y/o female who presented to [facility] ED On 05/03/23 with complaint of worsening shortness of breath and fatigue. Per history & physical note, Reports having had a cough for couple weeks but has gotten significantly worse over the past 3 days. Increased shortness of breath. Denies any chest pain, confusion, syncope, nausea or vomiting. No oxygen requirement in the ER workup are concerning for hypertensive urgency, found to be flu positive. Noted to have elevated troponin 0.5. Cardiology was consulted and patient was started on a heparin drip and nitroglycerin drip. Given NSTEMI, flu A, and hypertensive urgency, medicine was consulted for admission. Patient admitted to stepdown status for continued IV drip treatment. After arriving to the floor, patient states that she has no chest pain at this time. Blood pressure responding to nitro drip. Minimal cough. Developed a fever by the time she arrived to the floor. Received dose of metoprolol 25 mg p.o. in the ER. Normally takes bisoprolol at home but has not taken it today. Medical History: previous breast cancer, hypertension, hyperlipidemia Subjective Subjective Pt reports she lives in a single story home with her , states her daughter and son-in-law live in a camper behind their house as well. 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 Pt reports she was independent with ADLs and iADLs. Pt reports she would occasionally use a walking stick while on the farm but did not use an AD at baseline. Pt reports she has a walker that was her moms she could use upon returning home. New diagnosis of cancer in past 12 Yes months? Rehab PT IP Eval Objective Appearance Patient Behavior Appropriate,Cooperative Patient Orientation Person,Place,Name,Birthday Difficulty following instructions none Speech Pattern Clear,Appropriate Ambulation Patient Able to Ambulate Yes Ambulation Observation IP General Gait Pattern Observation Wide Based Gait Ambulation Distance (feet) 20 Ambulation Assistive Device Rolling Walker Ambulation Ability Contact Guard/Hand Hold Balance Ability to Arise Able, uses arms to help Sitting Balance Steady, safe Standing Balance Steady, wide stance Dynamic Sitting Balance Ability Good Dynamic Standing Balance Ability Good Transfers Bed Transfer Ability Contact Guard/Hand Hold Sit to Stand Bed Transfer Ability Contact Guard/Hand Hold Rehab PT IP prob,goals,plan Problems Date of Evaluation: 06/02/23 PT IP Problems Bed Mobility,Transfers,Gait, Balance,Self care,Safety Rehab Potential Rehab Potential Good Equipment Needs Assistive Devices Rolling / Wheeled Walker Plan PT Intervention Plan Bed Mobility,Transfers,Gait, Balance,Self care,Safety, Therapeutic Exercise Other Intervention Plan 1-2x/day PT Plan Frequency Daily Duration LOS Discharge Goals Bed Transfer Ability Supervision/Stand by Sit to Stand Chair Transfer Ability Supervision/Stand by Ambulation Assistive Device Rolling Walker Ambulation Distance (feet) 40 Discharge Plan PT Discharge Plan Pt will benefit from skilled physical therapy while in [facility]. Pt is currently appropriate to return home with family assist and HHPT s/p DC from [facility] once deemed medically stable by MD. Pt recommended to use walker for ambulation until strength improves to decrease fall risk. Without skilled therapy pt is at an increased risk for falls, fractures, wounds and increased burden of care. Eval Complexity Eval Charge Codes 90206 - Low Complexity PHYSICIAN CERTIFICATION: I certify the specified therapy services for Lavniia Iyer are required, authorized, and reviewed every 30 days.
--- NOTE | 2023-06-02 14:09 | SW/DCPLANNER ---
I spoke w/ this patient regarding discharge plans. PT/OT evaluated patient and recommended patient to return home w/ home health services. Patient stated that she resides at home w/ her and is not interested in home health services at this time. I will continue to follow up w/ patient regarding any questions/needs. Patient may discharge home today or tomorrow per MD.
[2023-06-02 16:45] LABS: POC Glucose,Bedside 132 (70-110)
[2023-06-02] MEDS: GUAIFENESIN/DEXTROMETHORPHAN 200MG/20MG 10ML UDC 10 ML PO (19:54)
[2023-06-02] MEDS: PRAVASTATIN 40MG TAB 40 MG PO (21:27)
[2023-06-02 22:02] LABS: POC Glucose,Bedside 120 (70-110)
[2023-06-03] VITALS (10 sets, daily range): BP systolic 124–147; BP diastolic 65–76; PULSE 71–93; RESP 17–20; TEMP 36.7–36.9; O2SAT 93–99; BMI 28.9
[2023-06-03] MEDS: IPRATROPIUM/ALBUTEROL 3 ML NEB IH ×4 (06:27→23:08)
[2023-06-03] MEDS: METFORMIN 500MG TABLET 500 MG PO (06:32)
[2023-06-03] MEDS: LEVOTHYROXINE 112MCG (0.112MG) TAB 112 MCG PO (06:33)
[2023-06-03 06:46] LABS: POC Glucose,Bedside 87 (70-110)
[2023-06-03 07:31] LABS: Alanine Aminotransferase 27 U/L (12-78); Albumin Level 3.4 g/dl (3.5-5.0); Albumin/Globulin Ratio 1.2 (1.1-1.8); Alkaline Phosphatase 82 U/L (38-126); Anion Gap 8.2 mEq/L (5-15); Aspartate Amino Transferase 51 U/L (14-36); Bilirubin,Total 0.8 mg/dl (0.2-1.3); Blood Urea Nitrogen 25 mg/dl (7-17); Calcium 8.4 mg/dl (8.4-10.2); Carbon Dioxide 26 mmol/L (22.0-30.0); Chloride 106 mmol/L (98-107); Creatinine Clearance Estimated 43 mL/min (50-200); Estimated Glomerular Filt Rate 34 ml/min (>60); GFR (African American) 41 ML/MIN (>60); Globulin 2.8 g/dL (1.3-3.2); Glucose 100 mg/dl (74-100); Potassium 4.2 mmoL/L (3.5-5.1); Sodium 136 mmol/L (136-145); Total Protein,Serum 6.2 g/dl (6.3-8.2)
[2023-06-03] MEDS: ASPIRIN EC 81MG TABLET 81 MG PO (08:30)
[2023-06-03] MEDS: ENOXAPARIN 100MG/ML SYRINGE 85 MG SQ ×2 (08:30→20:58)
[2023-06-03] MEDS: CLOPIDOGREL 75MG TAB 75 MG PO (08:30)
[2023-06-03] MEDS: BISOPROLOL 5MG TABLET 10 MG PO (08:30)
[2023-06-03] MEDS: AMLODIPINE 10MG TABLET 10 MG PO (08:30)
[2023-06-03] MEDS: IRBESARTAN 75MG TABLET 75 MG PO (08:31)
[2023-06-03] MEDS: OSELTAMIVIR PHOSPHATE 6MG/ML ORAL SUSP 60ML 30 MG PO ×2 (08:34→20:57)
--- NOTE | 2023-06-03 09:41 | PC.NURSE ---
RESP CARE NOTE: Pt room air oxygen saturation is 85%. Oxygen replaced at 2 lpm nc and oxygen saturation increased to 94%. Will continue to monitor patient.
[2023-06-03 11:20] LABS: POC Glucose,Bedside 104 (70-110)
--- NOTE | 2023-06-03 11:47 | CARE MANAGER ---
Patient's O2 sat 85% on RA at rest. NANNETTE Becerra
--- NOTE | 2023-06-03 12:19 | EXP.CARD.PN ---
Subjective Subjective Date: 06/03/23 Time: 12:19 Principal diagnosis: Flu, non-STEMI Interval history: 72-year-old white female in bed in no acute distress. Continues to describe some left-sided discomfort that only last a few seconds. Reportedly had some discomfort across the upper abdomen lower chest earlier today but again this has resolved. Patient and family concerned about going home for outpatient cath and have requested to have the cath prior to discharge. Exam Data for Last 24 hours Vital signs and Labs for Last 24 Hours: Temp Pulse Resp BP Pulse Ox O2 Del Method O2 Flow Rate 98.2 F 73 19 136/72 94 L Nasal Cannula 2 06/03/23 11:15 06/03/23 11:15 06/03/23 11:15 06/03/23 11:15 06/03/23 11:15 06/03/23 11:15 06/03/23 11:15 Laboratory Results - last 24 hr 06/02/23 16:37: POC Glucose 132 H 06/02/23 21:24: POC Glucose 120 H 06/03/23 06:29: POC Glucose 87 06/03/23 06:51: Sodium 136, Potassium 4.2, Chloride 106, Carbon Dioxide 26, Anion Gap 8.2, BUN 25 H, Creatinine 1.50 H, Estimated Creat Clear 43, Estimated GFR 34 L, Est GFR ( Amer) 41 L, Glucose 100, Calcium 8.4, Total Bilirubin 0.8, AST 51 H, ALT 27, Alkaline Phosphatase 82, Total Protein 6.2 L, Albumin 3.4 L, Globulin 2.8, Albumin/Globulin Ratio 1.2 06/03/23 11:11: POC Glucose 104 I & O for Last 24 hours: Intake & Output 06/01/23 06/02/23 06/03/23 06/04/23 11:59 11:59 11:59 11:59 Intake Total 1140 / 1140 590 / 590 630 / 630 240 / 240 Output Total 800 / 800 0 / 0 0 / 0 Balance 340 / 340 590 / 590 630 / 630 240 / 240 Weight 189 lb 8.326 oz 180 lb 1 oz 180 lb 1.177 oz Microbiology Reports for the Last 24 Hours: Microbiology 05/30/23 10:55 Urine,Clean Catch Urine Culture - Preliminary Constitutional Constitutional: no acute distress *Routine Respiratory Exam Respiratory: Present rhonchi *Routine Cardiovascular Exam Cardiovascular: Present RRR Progress Note: A&P Assessment and plan (1) Influenza A: Status: Acute (2) NSTEMI (non-ST elevated myocardial infarction): Status: Acute (3) Hypertensive urgency: Status: Acute (4) Hearing impaired: Status: Acute (5) Hypothyroidism: Status: Chronic (6) Diabetes mellitus: Status: Acute (7) History of breast cancer in female: Status: Acute Assessment and Plan Assessment and Plan for All Diagnoses:: 1. Shortness of breath with influenza type a infection -Patient is on Tamiflu and nebulizer treatments 2. Elevated troponin/non-STEMI -Continue aspirin, beta-maribel, amlodipine and Plavix. -Echocardiogram preliminary results show preserved ejection fraction -In light of patient's continued discomfort we will proceed with cardiac catheterization tomorrow 3. Diabetes mellitus, treatment per hospitalist -Hemoglobin A1c 5.9 this admission 4. Hypothyroidism -continue supplementation 6. History of right-sided breast cancer -status post surgery, radiation and chemotherapy 7. Hypertensive urgency on admission, resolved -Continue Avapro, amlodipine and bisoprolol 8. Hyperlipidemia, continue statin therapy with LDL goal less than 55 -LDL 82 in October 2019 Plan for left heart catheterization tomorrow.
[2023-06-03] MEDS: BENZONATATE 100MG CAPSULE 100 MG PO ×2 (14:55→20:57)
[2023-06-03 16:29] LABS: POC Glucose,Bedside 99 (70-110)
--- NOTE | 2023-06-03 16:54 | P.PN_ITS ---
Subjective *Date: 06/03/23 *Time: 16:54 Interval history: patient was seen and evaluated at the bedside. Feels dizzy, and still has some SOB. No reported acute events overnight, denies chest pain, nausea, vomiting, abdominal pain. Exam Data for Last 24 hours Vital signs and Labs for Last 24 Hours: Temp Pulse Resp BP Pulse Ox O2 Del Method O2 Flow Rate 98.1 F 78 17 147/71 H 94 L Nasal Cannula 2 06/03/23 15:22 06/03/23 15:22 06/03/23 15:22 06/03/23 15:22 06/03/23 15:22 06/03/23 16:37 06/03/23 16:37 Laboratory Results - last 24 hr 06/02/23 21:24: POC Glucose 120 H 06/03/23 06:29: POC Glucose 87 06/03/23 06:51: Sodium 136, Potassium 4.2, Chloride 106, Carbon Dioxide 26, Anion Gap 8.2, BUN 25 H, Creatinine 1.50 H, Estimated Creat Clear 43, Estimated GFR 34 L, Est GFR ( Amer) 41 L, Glucose 100, Calcium 8.4, Total Bilirubin 0.8, AST 51 H, ALT 27, Alkaline Phosphatase 82, Total Protein 6.2 L, Albumin 3.4 L, Globulin 2.8, Albumin/Globulin Ratio 1.2 06/03/23 11:11: POC Glucose 104 06/03/23 16:21: POC Glucose 99 I & O for Last 24 hours: Intake & Output 05/31/23 06/01/23 06/02/23 06/03/23 23:59 23:59 23:59 23:59 Intake Total 1704.30 / 1824.30 950 / 950 630 / 630 240 / 240 Output Total 800 / 800 0 / 0 0 / 0 0 / 0 Balance 904.30 / 1024.30 950 / 950 630 / 630 240 / 240 Weight 84.992 kg 85.69 kg 81.675 kg 81.68 kg Microbiology Reports for the Last 24 Hours: Microbiology 05/30/23 10:55 Urine,Clean Catch Urine Culture - Preliminary Constitutional Constitutional: no acute distress *Routine HEENT Exam Head: Present normocephalic Eye: Present EOMI and PERRL ENT: Present mucous membranes moist *Routine Neck Exam Neck: Present supple; Absent lymphadenopathy *Routine Respiratory Exam Respiratory: Present CTA bilaterally *Routine Cardiovascular Exam Cardiovascular: Present RRR *Routine Abdominal Exam Abdominal: Present soft and normoactive bowel sounds; Absent tenderness *Routine Extremities Exam Extremities: Absent cyanosis, clubbing or edema *Routine Skin Exam Skin: Present warm; Absent rash *Routine Neurological Exam Neurological: Present alert and oriented X3 Assessment and Plan *Assessment and plan (1) NSTEMI (non-ST elevated myocardial infarction): Status: Acute Category: Medical Code(s): I21.4 - Non-ST elevation (NSTEMI) myocardial infarction (2) Influenza A: Status: Acute Category: Medical Code(s): J10.1 - Influenza due to other identified influenza virus with other respiratory manifestations (3) Hypertensive urgency: Status: Acute Category: Medical Code(s): I16.0 - Hypertensive urgency (4) Diabetes mellitus with diabetic neuropathy: Status: Chronic Qualifiers: Diabetes mellitus type: type 2 Diabetes mellitus mcfp insulin use: without 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 or 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 Qualified Code(s): E11.40 - Type 2 diabetes mellitus with diabetic neuropathy, unspecified Category: Medical Code(s): E11.40 - Type 2 diabetes mellitus with diabetic neuropathy, unspecified (5) Breast cancer: Status: Acute Category: Medical Code(s): C50.919 - Malignant neoplasm of unspecified site of unspecified female breast (6) Hypothyroidism: Status: Chronic Qualifiers: Hypothyroidism type: acquired Qualified Code(s): E03.9 - Hypothyroidism, unspecified Category: Medical Code(s): E03.9 - Hypothyroidism, unspecified (7) Hearing impaired: Status: Acute Qualifiers: Hearing loss type: unspecified Laterality: unspecified laterality Qualified Code(s): H91.90 - Unspecified hearing loss, unspecified ear Category: Medical Code(s): H91.90 - Unspecified hearing loss, unspecified ear Plan 72-year-old female with hypothyroid, hypertension, diabetes, history of breast cancer who presented with weakness and worsening shortness of breath over the past 3 days. Found to be flu positive with hypertensive urgency in the ER. Discussed case with ER physician, request admission for continued treatment of NSTEMI and flu with nitro drip and heparin drip. Blood pressure stable this morning on oral regimen. Weaning oxygen today, continues to require inpatient management, awaiting cards eval tomorrow for possible heart cath. Problems addressed as follows: NSTEMI Hypertensive urgency, resolved -Blood pressure goal less than 140/90. -continue on telemetry -Continue bisoprolol 10 mg daily, irbesartan 75 mg daily, amlodipine 10 mg daily -Aspirin 81 mg and Plavix 75 mg daily. - repeat EKG if patient develops chest pain -Cardiology consulted, Will evaluate in the next 24 to 48 hours for possible heart cath. Will intervene urgently if develop STEMI. Differential diagnosis includes coronary artery disease, type II NSTEMI due to supply/demand mismatch, myocarditis from flu. -Echo ordered for the morning - await final Cardiology recs - less likely plan for inpatient cath in presence of Influenza A Influenza A on 2L NC, wean as tolerated -Continue Tamiflu, renally dosed at 30 mg twice daily given creatinine clearance. -DuoNebs every 6 hours scheduled CKD: Creatinine stable. Caution with nephrotoxins. Medications renally dosed. Repeat CMP in the morning Hypothyroidism: Continue home 112 mcg levothyroxine daily Diabetes: A1c 5.9, continue metformin 500 mg daily. Fingersticks ACHS with sliding scale insulin History of breast cancer: Holding on tamoxifen in the setting of acute illness. Hyperlipidemia: Continue home pravastatin 40 mg nightly Memory impairment: Recommend outpatient eval with [facility] or [place]; family concern for MCI or dementia Hearing impairment: Will refer to ENT at discharge for screening and further management Full code Lovenox 1 mg/kg twice daily Diabetic diet Plan - wean O2 as tolerated, consult PT/OT, ambulate, continue Tamiflu Plan for cardiac cath tomorrow, home O2 at dc - ordered
--- NOTE | 2023-06-03 17:45 | PC.NURSE ---
A&OX4. TOLERATING 2LNC, STILL REQUIRING, O2 SAT IN LOWER 90S T/O DAY. PT C/O COUGH THIS SHIFT, COUGH MEDICATION ORDERED AND GIVEN PER JUL. EFFECTIVENESS NOTED. PT HAS REMAINED IN BED MAJORITY OF SHIFT. STATES SHE IS STILL WEAK. FAMILY HAS REMAINED AT BEDSIDE. NO OTHER NEEDS OR C/O NOTED. VSS.
[2023-06-03 20:52] LABS: POC Glucose,Bedside 126 (70-110)
[2023-06-03] MEDS: PRAVASTATIN 40MG TAB 40 MG PO (20:57)
[2023-06-03] MEDS: GUAIFENESIN/DEXTROMETHORPHAN 200MG/20MG 10ML UDC 10 ML PO (23:52)
[2023-06-04] VITALS (21 sets, daily range): BP systolic 123–163; BP diastolic 66–84; PULSE 67–86; RESP 15–19; TEMP 36.6–37.2; O2SAT 91–98; BMI 29.0
[2023-06-04 06:03] LABS: Chloride 107 mmol/L (98-107); Potassium 4.1 mmoL/L (3.5-5.1); Sodium 139 mmol/L (136-145)
[2023-06-04 06:05] LABS: Alanine Aminotransferase 27 U/L (12-78); Alkaline Phosphatase 81 U/L (38-126); Aspartate Amino Transferase 45 U/L (14-36); Bilirubin,Total 0.6 mg/dl (0.2-1.3); Blood Urea Nitrogen 21 mg/dl (7-17); Creatinine Clearance Estimated 50 mL/min (50-200); Estimated Glomerular Filt Rate 40 ml/min (>60); GFR (African American) 49 ML/MIN (>60)
[2023-06-04] MEDS: IPRATROPIUM/ALBUTEROL 3 ML NEB IH ×2 (06:05→18:43)
[2023-06-04 06:06] LABS: Albumin Level 3.1 g/dl (3.5-5.0); Anion Gap 12.1 mEq/L (5-15); Calcium 8.2 mg/dl (8.4-10.2); Carbon Dioxide 24 mmol/L (22.0-30.0); Glucose 98 mg/dl (74-100); Total Protein,Serum 6.1 g/dl (6.3-8.2)
--- NOTE | 2023-06-04 07:10 | IR_ITS ---
APPROVED REPORT Patient Location: Inpatient PROCEDURES Selective coronary angiogram Drug-eluting stent deployment to the ostial proximal mid and distal dominant right coronary artery in a contiguous manner using 3 contiguous drug-eluting stents Drug-eluting stent deployment to the first obtuse marginal artery Drug-eluting stent deployment to the second obtuse marginal artery INDICATION Acute non-ST elevation myocardial infarction, Coronary artery disease Informed consent was obtained prior to the procedure. COMPLICATIONS NONE Estimated Blood Loss: LESS THAN 10 ML TECHNIQUE One percent lidocaine used to anesthetize the right anterior aspect of the wrist. The right radial artery was accessed via the Seldinger technique. A 6 [place] sheath was placed in the right radial artery. 2.5 mg of Verapamil, 800 mcg of nitroglycerin, 1mg Lidocaine and 5000 U Heparin were given through the arterial sheath. The papa catheter was also used to perform selective coronary angiogram. At the end the diagnostic angiogram therapeutic heparin was administered giving a therapeutic ACT and the guide catheter was placed in the right coronary followed by Choice PT extra-support wire. Two 3.5 x 38 mm [place] frontier stents were placed in the proximal mid and distal segment in a contiguous manner and deployed at 22 and 20 dilcia respectively. An additional 4 mm x 12 mm [place] frontier stent was then deployed in the ostial segment of 22 dilcia reducing the stenosis. ZINA-3 flow was present before and after the procedure. All 3 stents were contiguous and overlapped. Following this the guide catheter was placed in the left main artery where the wire was placed into the first obtuse marginal artery. Primary stenting could not be performed therefore a 2 mm x 12 mm noncompliant balloon was deployed at 16 dilcia reducing the stenosis. Following this a 2.5 x 22 mm [place] frontier stent was deployed at 18 dilcia reducing the critical stenosis to 0%. Following this the wire was placed in the second obtuse marginal artery where a 2 mm x 15 mm [place] frontier stent was deployed at 12 dilcia reducing this critical stenosis. ZINA-3 flow was present before and after the procedure with the first and second obtuse marginal artery. At the end the procedure the apparatus was removed the sheath was removed and hemostasis was achieved using TR banding patient was transferred to the postop holding area in stable condition ANGIOGRAPHIC RESULTS The left main artery Normal The left anterior descending artery Has proximal and mid vessel calcified 30 to 40% stenoses. The circumflex artery Is nondominant and gives rise to 2 obtuse marginal arteries. The first obtuse marginal artery has tandem 90% proximal stenoses while the second obtuse marginal artery has a mid vessel 90% stenosis The right coronary artery Is a large dominant vessel and has an ostial 80% stenosis which cause severe dampening followed by proximal 50% stenoses and mid vessel 80% stenoses with an additional distal 50% stenosis. The [place] ventriculogram reveals Not performed The left ventricular end-diastolic pressure Not measured IMPRESSION Critical coronary artery disease as described above Successful reconstruction of the ostial proximal mid and distal dominant right coronary artery with 3 contiguous drug-eluting stents reducing all stenoses to 0% Successful stenting of the first obtuse marginal artery critical disease reduced to 0% with 1 drug-eluting stent Successful stenting of the second obtuse marginal artery critical disease reduced to 0% with 1 drug-eluting stent PLAN 1. Plavix 600 mg load followed by 75 mg daily with aspirin 81 mg daily 2. LDL less than 55 to be achieved with high intensity statin 3. Cardiac rehabilitation 4. Avoidance of tobacco products 5. Standard therapy for ischemic heart disease 6. I would like to perform exercise Myoview in 6 weeks to determine if the LAD disease is ischemia producing. Electronically signed by : Dae Pinon MD 06/04/2023 11:45:02
[2023-06-04] MEDS: BISOPROLOL 5MG TABLET 10 MG PO (08:37)
[2023-06-04] MEDS: IRBESARTAN 75MG TABLET 75 MG PO (08:38)
[2023-06-04] MEDS: ASPIRIN EC 81MG TABLET 81 MG PO (08:39)
[2023-06-04] MEDS: BENZONATATE 100MG CAPSULE 100 MG PO ×2 (08:39→20:41)
[2023-06-04] MEDS: CLOPIDOGREL 75MG TAB 75 MG PO (08:39)
[2023-06-04] MEDS: AMLODIPINE 10MG TABLET 10 MG PO (08:40)
[2023-06-04] MEDS: OSELTAMIVIR PHOSPHATE 6MG/ML ORAL SUSP 60ML 30 MG PO (08:43)
[2023-06-04] MEDS: HEPARIN 1,000 UNITS/ML 10ML VIAL (CATH LAB) 10000 UNIT IV (10:41)
[2023-06-04] MEDS: diphenhydrAMINE 50MG/ML VIAL 50 MG IV (10:41)
[2023-06-04] MEDS: LIDOCAINE 1% 10ML MDV 20 ML IJ (10:41)
[2023-06-04] MEDS: NITROGLYCERIN 800MCG/8ML SYR (CATH LAB) 800 MCG IA (10:41)
[2023-06-04] MEDS: HEPARIN 1,000 UNITS/500ML NS (CATH LAB) 3000 UNIT IV (10:42)
[2023-06-04] MEDS: 0.9 % SODIUM CHLORIDE 500 ML 25 ML IV (10:42)
[2023-06-04] MEDS: VERAPAMIL 2.5MG/ML 2ML VIAL 2.5 MG IV (10:43)
[2023-06-04 11:51] LABS: CATHL Activated Clotting Time 332 SEC (74-125)
[2023-06-04] MEDS: IOPAMIDOL-370 (76%);100ML BOTTLE 125 ML IV (11:53)
[2023-06-04] MEDS: FENTANYL 100MCG/2ML VIAL 50 MCG IV (11:59)
[2023-06-04] MEDS: MIDAZOLAM HCL 1MG/1ML 5ML VIAL 1 MG IV (12:00)
--- NOTE | 2023-06-04 13:37 | EXP.PN ---
Subjective *Date: 06/04/23 *Time: 13:37 Interval history: patient was seen and evaluated at the bedside. no new complaints today, No reported acute events overnight, denies chest pain, nausea, vomiting, abdominal pain. Exam Data for Last 24 hours Vital signs and Labs for Last 24 Hours: Temp Pulse Resp BP Pulse Ox O2 Del Method O2 Flow Rate 98.1 F 67 16 152/77 H 98 Nasal Cannula 2 06/04/23 08:00 06/04/23 13:06/04/23 13:06/04/23 13:06/04/23 13:06/04/23 13:06/04/23 13:04 Laboratory Results - last 24 hr 06/03/23 16:21: POC Glucose 99 06/03/23 20:45: POC Glucose 126 H 06/04/23 05:28: Sodium 139, Potassium 4.1, Chloride 107, Carbon Dioxide 24, Anion Gap 12.1, BUN 21 H, Creatinine 1.30 H, Estimated Creat Clear 50, Estimated GFR 40 L, Est GFR ( Amer) 49 L, Glucose 98, Calcium 8.2 L, Total Bilirubin 0.6, AST 45 H, ALT 27, Alkaline Phosphatase 81, Total Protein 6.1 L, Albumin 3.1 L, Globulin 3.0, Albumin/Globulin Ratio 1.0 L 06/04/23 12:15: Activated Clotting Time 332 H* I & O for Last 24 hours: Intake & Output 06/01/23 06/02/23 06/03/23 06/04/23 23:59 23:59 23:59 23:59 Intake Total 950 / 950 630 / 630 710 / 710 50 / 50 Output Total 0 / 0 0 / 0 0 / 0 0 / 0 Balance 950 / 950 630 / 630 710 / 710 50 / 50 Weight 85.69 kg 81.675 kg 81.68 kg 81.902 kg Microbiology Reports for the Last 24 Hours: Microbiology 05/30/23 10:55 Urine,Clean Catch Urine Culture - Preliminary Constitutional Constitutional: no acute distress *Routine HEENT Exam Head: Present normocephalic Eye: Present EOMI and PERRL ENT: Present mucous membranes moist *Routine Neck Exam Neck: Present supple; Absent lymphadenopathy *Routine Respiratory Exam Respiratory: Present CTA bilaterally *Routine Cardiovascular Exam Cardiovascular: Present RRR *Routine Abdominal Exam Abdominal: Present soft and normoactive bowel sounds; Absent tenderness *Routine Extremities Exam Extremities: Absent cyanosis, clubbing or edema *Routine Skin Exam Skin: Present warm; Absent rash *Routine Neurological Exam Neurological: Present alert and oriented X3 Assessment and Plan *Assessment and plan (1) NSTEMI (non-ST elevated myocardial infarction): Status: Acute Category: Medical Code(s): I21.4 - Non-ST elevation (NSTEMI) myocardial infarction (2) Influenza A: Status: Acute Category: Medical Code(s): J10.1 - Influenza due to other identified influenza virus with other respiratory manifestations (3) Hypertensive urgency: Status: Acute Category: Medical Code(s): I16.0 - Hypertensive urgency (4) Diabetes mellitus with diabetic neuropathy: Status: Chronic Qualifiers: Diabetes mellitus type: type 2 Diabetes mellitus long term acute care registered nurse insulin use: without long term acute care registered nurse use Qualified Code(s): E11.40 - Type 2 diabetes mellitus with diabetic neuropathy, unspecified Category: Medical Code(s): E11.40 - Type 2 diabetes mellitus with diabetic neuropathy, unspecified (5) Breast cancer: Status: Acute Category: Medical Code(s): C50.919 - Malignant neoplasm of unspecified site of unspecified female breast (6) Hypothyroidism: Status: Chronic Qualifiers: Hypothyroidism type: acquired Qualified Code(s): E03.9 - Hypothyroidism, unspecified Category: Medical Code(s): E03.9 - Hypothyroidism, unspecified (7) Hearing impaired: Status: Acute Qualifiers: Hearing loss type: unspecified Laterality: unspecified laterality Qualified Code(s): H91.90 - Unspecified hearing loss, unspecified ear Category: Medical Code(s): H91.90 - Unspecified hearing loss, unspecified ear Plan 72-year-old female with hypothyroid, hypertension, diabetes, history of breast cancer who presented with weakness and worsening shortness of breath over the past 3 days. Found to be flu positive with hypertensive urgency in the ER. Discussed case with ER physician, request admission for continued treatment of NSTEMI and flu with nitro drip and heparin drip. Blood pressure stable this morning on oral regimen. Weaning oxygen today, continues to require inpatient management, awaiting cards eval tomorrow for possible heart cath. Problems addressed as follows: NSTEMI Hypertensive urgency, resolved -Blood pressure goal less than 140/90. -continue on telemetry -Continue bisoprolol 10 mg daily, irbesartan 75 mg daily, amlodipine 10 mg daily -Aspirin 81 mg and Plavix 75 mg daily. - repeat EKG if patient develops chest pain -Cardiology consulted, Will evaluate in the next 24 to 48 hours for possible heart cath. Will intervene urgently if develop STEMI. Differential diagnosis includes coronary artery disease, type II NSTEMI due to supply/demand mismatch, myocarditis from flu. -Echo ordered for the morning - await final Cardiology recs -plan for cardiac cath today, dc to or tomorrow pending cardiology recs Influenza A on 2L NC, wean as tolerated -Continue Tamiflu, renally dosed at 30 mg twice daily given creatinine clearance. -DuoNebs every 6 hours scheduled CKD: Creatinine stable. Caution with nephrotoxins. Medications renally dosed. Repeat CMP in the morning Hypothyroidism: Continue home 112 mcg levothyroxine daily Diabetes: A1c 5.9, continue metformin 500 mg daily. Fingersticks ACHS with sliding scale insulin History of breast cancer: Holding on tamoxifen in the setting of acute illness. Hyperlipidemia: Continue home pravastatin 40 mg nightly Memory impairment: Recommend outpatient eval with [facility] or [place]; family concern for MCI or dementia Hearing impairment: Will refer to ENT at discharge for screening and further management Full code Lovenox 1 mg/kg twice daily Diabetic diet Plan - wean O2 as tolerated, consult PT/OT, ambulate, continue Tamiflu Plan for cardiac cath today, home O2 at dc - ordered
[2023-06-04] MEDS: ACETAMINOPHEN 325MG TAB 650 MG PO (13:45)
[2023-06-04] MEDS: ONDANSETRON 4MG/2ML VIAL 4 MG IV (13:46)
[2023-06-04 16:37] LABS: POC Glucose,Bedside 132 (70-110)
--- NOTE | 2023-06-04 16:52 | PC.NURSE ---
Patient is alert and oriented X4. 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 Pt has began to regain appetite since procedure and has tolerated fluids and a snack so far. Post-op vitals are stable. Pt remains on 2L NC.
[2023-06-04] MEDS: ENOXAPARIN 100MG/ML SYRINGE 85 MG SQ (20:41)
[2023-06-04] MEDS: PRAVASTATIN 40MG TAB 40 MG PO (20:41)
[2023-06-04 20:52] LABS: POC Glucose,Bedside 102 (70-110)
[2023-06-05] VITALS: BP 154/71; PULSE 73; RESP 18; TEMP 36.5; O2SAT 96
[2023-06-05] MEDS: IPRATROPIUM/ALBUTEROL 3 ML NEB IH ×2 (00:33→06:51)
[2023-06-05 00:34] VITALS: PULSE 72; PULSE 74
[2023-06-05 04:00] VITALS: BP 127/70; PULSE 74; RESP 18; TEMP 36.6; O2SAT 97; BMI 29.3
[2023-06-05] MEDS: LEVOTHYROXINE 112MCG (0.112MG) TAB 112 MCG PO (06:26)
[2023-06-05 06:53] VITALS: PULSE 80; O2SAT 96
[2023-06-05 08:00] VITALS: BP 131/71; PULSE 88; RESP 16; TEMP 36.8; O2SAT 93
--- NOTE | 2023-06-05 08:50 | EXP.CARD.PN ---
Subjective Subjective Date: 06/05/23 Time: 08:52 Principal diagnosis: Flu, non-STEMI Interval history: 72-year-old white female status post stenting yesterday in setting of recent non-STEMI. No complaints this morning. Anxious to go home. Exam Data for Last 24 hours Vital signs and Labs for Last 24 Hours: Temp Pulse Resp BP Pulse Ox O2 Del Method O2 Flow Rate 98.3 F 88 16 131/71 93 L Nasal Cannula 2 06/05/23 08:00 06/05/23 08:00 06/05/23 08:00 06/05/23 08:00 06/05/23 08:00 06/05/23 08:00 06/05/23 08:00 Laboratory Results - last 24 hr 06/04/23 12:15: Activated Clotting Time 332 H* 06/04/23 16:29: POC Glucose 132 H 06/04/23 20:42: POC Glucose 102 I & O for Last 24 hours: Intake & Output 06/02/23 06/03/23 06/04/23 06/05/23 11:59 11:59 11:59 11:59 Intake Total 590 / 590 630 / 630 760 / 760 240 / 240 Output Total 0 / 0 0 / 0 0 / 0 470 / 470 Balance 590 / 590 630 / 630 760 / 760 -230 / -230 Weight 180 lb 1 oz 180 lb 1.177 oz 180 lb 9 oz 182 lb 7 oz Microbiology Reports for the Last 24 Hours: Microbiology 05/30/23 10:55 Urine,Clean Catch Urine Culture - Final Constitutional Constitutional: no acute distress *Routine Respiratory Exam Respiratory: Present CTA bilaterally *Routine Cardiovascular Exam Cardiovascular: Present RRR Progress Note: A&P Assessment and plan (1) NSTEMI (non-ST elevated myocardial infarction): Status: Acute (2) Influenza A: Status: Acute (3) Hypertensive urgency: Status: Acute (4) Diabetes mellitus with diabetic neuropathy: Status: Chronic (5) Breast cancer: Status: Acute (6) Hypothyroidism: Status: Chronic (7) Hearing impaired: Status: Acute Assessment and Plan Assessment and Plan for All Diagnoses:: 1. Shortness of breath with influenza type a infection -Patient is on Tamiflu and nebulizer treatments 2. Elevated troponin/non-STEMI -Continue aspirin, beta-maribel, amlodipine and Plavix. -Echocardiogram preliminary results show preserved ejection fraction -MARIA ISABEL to RCA and first and second OM -DAPT with ASA and plavix 3. Diabetes mellitus, treatment per hospitalist -Hemoglobin A1c 5.9 this admission 4. Hypothyroidism -continue supplementation 6. History of right-sided breast cancer -status post surgery, radiation and chemotherapy 7. Hypertensive urgency on admission, resolved -Continue Avapro, amlodipine and bisoprolol 8. Hyperlipidemia, continue statin therapy with LDL goal less than 55 -LDL 82 in October 2019 Stable for discharge from cardiac standpoint Follow-up in our office in 1 week Home medication recommendations Aspirin 81 mg daily Plavix 75 mg daily Atorvastatin 80 mg daily Bisoprolol 10 mg daily Amlodipine 10 mg daily Irbesartan 75 mg daily
[2023-06-05] MEDS: IRBESARTAN 75MG TABLET 75 MG PO (09:05)
[2023-06-05] MEDS: ASPIRIN EC 81MG TABLET 81 MG PO (09:05)
[2023-06-05] MEDS: CLOPIDOGREL 75MG TAB 75 MG PO (09:05)
[2023-06-05] MEDS: AMLODIPINE 10MG TABLET 10 MG PO (09:06)
[2023-06-05] MEDS: BENZONATATE 100MG CAPSULE 100 MG PO (09:07)
[2023-06-05] MEDS: BISOPROLOL 5MG TABLET 10 MG PO (09:07)
[2023-06-05] MEDS: ENOXAPARIN 100MG/ML SYRINGE 85 MG SQ (09:07)
--- NOTE | 2023-06-05 09:54 | EXP.DC.SUM ---
General Admission date:: 05/30/23 Discharge date: 06/05/23 HPI HPI HPI: Ms. Iyer is a 72-year-old female with history of previous breast cancer, hypertension, hyperlipidemia. She presented to the ER for evaluation of worsening shortness of breath and fatigue. Reports having had a cough for couple weeks but has gotten significantly worse over the past 3 days. Increased shortness of breath. Denies any chest pain, confusion, syncope, nausea or vomiting. No oxygen requirement in the ER workup are concerning for hypertensive urgency, found to be flu positive. Noted to have elevated troponin 0.5. Cardiology was consulted and patient was started on a heparin drip and nitroglycerin drip. Given NSTEMI, flu A, and hypertensive urgency, medicine was consulted for admission. Patient admitted to stepdown status for continued IV drip treatment. After arriving to the floor, patient states that she has no chest pain at this time. Blood pressure responding to nitro drip. Minimal cough. Developed a fever by the time she arrived to the floor. Received dose of metoprolol 25 mg p.o. in the ER. Normally takes bisoprolol at home but has not taken it today. Hospital Course Hospital Course Hospital Course: Patient was seen and evaluated at the bedside on the day of discharge. Patient is stable for discharge. Patient wishes to be discharged. All patient questions were answered and patient was given time to ask questions. Patient was discharged in stable condition. Patient understands that she can return to ER in case of any sudden changes in health. Total time spent on DC - 38 mins 72-year-old female with hypothyroid, hypertension, diabetes, history of breast cancer who presented with weakness and worsening shortness of breath over the past 3 days. Found to be flu positive with hypertensive urgency in the ER. Discussed case with ER physician, request admission for continued treatment of NSTEMI and flu with nitro drip and heparin drip. Blood pressure stable this morning on oral regimen. Weaning oxygen today, continues to require inpatient management, awaiting cards eval tomorrow for possible heart cath. Problems addressed as follows: NSTEMI Hypertensive urgency, resolved s/p Cardiac cath, s/p MARIA ISABEL ASA and PLavix at DC Influenza A on 2L NC, wean as tolerated -Continue Tamiflu, renally dosed at 30 mg twice daily given creatinine clearance. -DuoNebs every 6 hours scheduled CKD: Creatinine stable. Caution with nephrotoxins. Medications renally dosed. Repeat CMP in the morning Hypothyroidism: Continue home 112 mcg levothyroxine daily Diabetes: A1c 5.9, continue metformin 500 mg daily. Fingersticks ACHS with sliding scale insulin History of breast cancer: Holding on tamoxifen in the setting of acute illness. Hyperlipidemia: Continue home pravastatin 40 mg nightly Memory impairment: Recommend outpatient eval with [facility] or [facility]; family concern for MCI or dementia Hearing impairment: Will refer to ENT at discharge for screening and further management Full code Lovenox 1 mg/kg twice daily Diabetic diet DC home, ok to DC from Cardiology standpoint, stable for dc Exam Data for Last 24 hours Vital signs and Labs for Last 24 Hours: Temp Pulse Resp BP Pulse Ox O2 Del Method O2 Flow Rate 98.3 F 88 16 131/71 93 L Nasal Cannula 2 06/05/23 08:00 06/05/23 08:00 06/05/23 08:00 06/05/23 08:00 06/05/23 08:00 06/05/23 08:00 06/05/23 08:00 Laboratory Results - last 24 hr 06/04/23 12:15: Activated Clotting Time 332 H* 06/04/23 16:29: POC Glucose 132 H 06/04/23 20:42: POC Glucose 102 I & O for Last 24 hours: Intake & Output 06/02/23 06/03/23 06/04/23 06/05/23 23:59 23:59 23:59 23:59 Intake Total 630 / 630 710 / 710 290 / 290 Output Total 0 / 0 0 / 0 470 / 470 0 / 0 Balance 630 / 630 710 / 710 -180 / -180 0 / 0 Weight 81.675 kg 81.68 kg 81.902 kg 82.752 kg Microbiology Reports for the Last 24 Hours: Microbiology 05/30/23 10:55 Urine,Clean Catch Urine Culture - Final Constitutional Constitutional: no acute distress *Routine HEENT Exam Head: Present normocephalic Eye: Present EOMI and PERRL ENT: Present mucous membranes moist *Routine Neck Exam Neck: Present supple; Absent lymphadenopathy *Routine Respiratory Exam Respiratory: Present CTA bilaterally *Routine Cardiovascular Exam Cardiovascular: Present RRR *Routine Abdominal Exam Abdominal: Present soft and normoactive bowel sounds; Absent tenderness *Routine Extremities Exam Extremities: Absent cyanosis, clubbing or edema *Routine Skin Exam Skin: Present warm; Absent rash *Routine Neurological Exam Neurological: Present alert and oriented X3 Results Data Completed and Pending Labs on day of discharge: Labs from last 24 hours 06/04/23 06/04/23 06/04/23 20:42 16:29 12:15 Activated Clotting Time 332 H* POC Glucose 102 132 H DS: Diagnosis Discharge Diagnosis (1) NSTEMI (non-ST elevated myocardial infarction): Status: Acute Code(s): I21.4 - Non-ST elevation (NSTEMI) myocardial infarction (2) Influenza A: Status: Acute Code(s): J10.1 - Influenza due to other identified influenza virus with other respiratory manifestations (3) Hypertensive urgency: Status: Acute Code(s): I16.0 - Hypertensive urgency (4) Diabetes mellitus with diabetic neuropathy: Status: Chronic Code(s): E11.40 - Type 2 diabetes mellitus with diabetic neuropathy, unspecified Qualifiers: Diabetes mellitus senior living insulin use: without long term care social worker use Diabetes mellitus type: type 2 Qualified Code(s): E11.40 - Type 2 diabetes mellitus with diabetic neuropathy, unspecified (5) Breast cancer: Status: Acute Code(s): C50.919 - Malignant neoplasm of unspecified site of unspecified female breast (6) Hypothyroidism: Status: Chronic Code(s): E03.9 - Hypothyroidism, unspecified Qualifiers: Hypothyroidism type: acquired Qualified Code(s): E03.9 - Hypothyroidism, unspecified (7) Hearing impaired: Status: Acute Code(s): H91.90 - Unspecified hearing loss, unspecified ear Qualifiers: Hearing loss type: unspecified Laterality: unspecified laterality Qualified Code(s): H91.90 - Unspecified hearing loss, unspecified ear Meds Home Medications and Allergies Home Medications Medication Instructions Recorded Confirmed Type pravastatin 40 mg tablet 40 mg PO HS 06/23/17 05/30/23 History amlodipine 10 mg tablet 10 mg PO DAILY #90 tabs 03/28/19 05/30/23 History bisoprolol fumarate 10 mg tablet 10 mg PO DAILY 01/26/20 05/30/23 History hydrochlorothiazide 25 mg tablet 25 mg PO DAILY 12/18/20 05/30/23 History levothyroxine 112 mcg tablet 112 mcg PO DAILYDM 01/13/22 05/30/23 History naproxen 500 mg tablet 500 mg PO BIDP PRN Mild Pain 01/13/22 05/30/23 History (Scale Score 1-4) tamoxifen 20 mg tablet 20 mg PO DAILY cancer 02/27/22 05/30/23 History glimepiride 2 mg tablet 2 mg PO DAILYDM 07/23/22 05/30/23 History metformin 500 mg tablet 500 mg PO DAILYDM 07/23/22 05/30/23 History hydroxyzine pamoate 25 mg capsule 25 mg PO TIDP PRN Itching 05/30/23 05/30/23 History aspirin 81 mg tablet,delayed 81 mg PO DAILY 30 days #30 tabs 06/05/23 Rx release atorvastatin 40 mg tablet 80 mg PO HS 30 days #60 tabs 06/05/23 Rx clopidogrel 75 mg tablet 75 mg PO DAILY 30 days #30 tabs 06/05/23 Rx irbesartan 75 mg tablet 75 mg PO DAILY 30 days #30 tabs 06/05/23 Rx oseltamivir 6 mg/mL oral 30 mg (5 mL) PO BID 2 days #20 mL 06/05/23 Rx suspension (Tamiflu) New Prescriptions to Start Prescriptions: aspirin Mello,Bobbyan atorvastatin Mello,Bobbyan clopidogrel Mello,Tremayne irbesartan Mello,Tremayne oseltamivir [Tamiflu] Mello,Tremayne Allergies Allergy/AdvReac Type Severity Reaction Status Date / Time niacin [NIACIN] Allergy Intermediate I-RASH Verified 02/27/23 10:03 Discharge Plan Disposition Patient Disposition: Home, Self-Care Discharge Order Discharge Orders: Discharge Order (Routine); Ordered 06/05/23 Ordered By: Tremayne Sarkar Follow up Plan Follow up with: Neal Stapleton MD [Physician] - Enter time for follow up (Hearing deficit, needs screening for hearing and possible aids.) Dae Pinon MD [Staff Physician] - Enter time for follow up Krishan Caldwell MD [Primary Care Provider] - Enter time for follow up Prescriptions/Medication Reconciliation: New atorvastatin 40 mg Tablet 80 mg PO HS 30 Days Qty: 60 0RF clopidogrel 75 mg Tablet 75 mg PO DAILY 30 Days Qty: 30 0RF aspirin 81 mg Tablet,Delayed Release (Dr/Ec) 81 mg PO DAILY 30 Days Qty: 30 0RF irbesartan 75 mg Tablet 75 mg PO DAILY 30 Days Qty: 30 0RF oseltamivir [Tamiflu] 6 mg/mL Suspension For Reconstitution 30 mg PO BID 2 Days Qty: 20 0RF Continued bisoprolol fumarate 10 mg tablet 10 mg PO DAILY levothyroxine 112 mcg tablet 112 mcg PO DAILYDM Patient Comments: TAKE 1 TABLET BY MOUTH EVERY DAY FOR 90 DAYS naproxen 500 mg tablet 500 mg PO BIDP PRN (Reason: Mild Pain (Scale Score 1-4)) metformin 500 mg tablet 500 mg PO DAILYDM Patient Comments: TAKE 1 TABLET BY MOUTH EVERY DAY FOR 30 DAYS glimepiride 2 mg tablet 2 mg PO DAILYDM Patient Comments: TAKE 1 TABLET BY MOUTH EVERY MORNING WITH FOOD pravastatin 40 mg tablet 40 mg PO HS amlodipine 10 mg tablet 10 mg PO DAILY Qty: 90 Patient Comments: TAKE 1 TABLET BY MOUTH EVERY DAY tamoxifen 20 mg tablet 20 mg PO DAILY hydrochlorothiazide 25 MG tablet 25 mg PO DAILY hydroxyzine pamoate 25 mg capsule 25 mg PO TIDP PRN (Reason: Itching) Patient Comments: TAKE 1 CAPSULE BY MOUTH THREE TIMES A DAY NEEDED FOR ITCHING FOR 14 DAYS Other Ambulatory Orders: Home Medical Equipment (Routine) Location: None Selected Ordered By: Tremayne Sarkar Problem Reconciliation Problems Reviewed?: Yes Patient Discharge Instructions ACTIVITY: Continue current activity DIET: continue same diet Patient Instructions: Essential Hypertension, Carbohydrate-Counting Diet, DI for Angina, DI for Cardiac Catheterization, DI for Influenza -- Adult, DI for Myocarditis, DI for Surgical Site Infection Providers Primary Care Provider: Krishan Caldwell Provider: Jerry Barreto Attending Provider: Jerry Barreto
[2023-06-05 21:53] LABS: POC Glucose,Bedside 107 (70-110)
--- NOTE | 2023-06-09 15:12 | CARE MANAGER ---
Attempted to contact patient x2 related to hospital discharge. No VM option. NANNETTE Becerra
== END 2023-06-05 11:54 | disposition home or self-care (01) | DRG 321 ==
LOC: ER 11:31 → 2ND 05-31 01:21
PROVIDERS: Internal Medicine; Admitting Provider Internal Medicine Adolescent Medicine; Emergency Provider Emergency Medicine; PCP Internal Medicine Adolescent Medicine; Visit Provider Internal Medicine Adolescent Medicine
DX: I21.4 Non-ST elevation (NSTEMI) myocardial infarction (principal); J10.1 Influenza due to other identified influenza virus with other respiratory manifestations; I16.0 Hypertensive urgency; E11.40 Type 2 diabetes mellitus with diabetic neuropathy, unspecified; I25.10 Atherosclerotic heart disease of native coronary artery without angina pectoris; C50.919 Malignant neoplasm of unspecified site of unspecified female breast; E03.9 Hypothyroidism, unspecified; H91.90 Unspecified hearing loss, unspecified ear; Z85.3 Personal history of malignant neoplasm of breast; E11.69 Type 2 diabetes mellitus with other specified complication; Z79.899 Other long term (current) drug therapy; Z79.84 Long term (current) use of oral hypoglycemic drugs; E78.5 Hyperlipidemia, unspecified; E11.22 Type 2 diabetes mellitus with diabetic chronic kidney disease; N18.9 Chronic kidney disease, unspecified
CPT/HCPCS: 36415; 71045; 71275; 74177; 80048; 80053; 81001; 82962; 83036; 83690; 83735; 84484; 85007; 85014; 85018; 85025; 85048; 85049; 85347; 85610; 85730; 87086; 87636; 92928; 93005; 93306; 93454; 94640; 94761; 97116; 97161; 97166; 97530; 97535; 99152; 99153; 99291; C1725; C1769; C1874; C1876; C9600; J1644; J2405; Q9967

== ENCOUNTER 2023-06-10 10:21 | Outpatient (CLI) | payer MEDICARE, OTHER, SELFPAY ==
[2023-06-10 10:52] LABS: Basophils % 0.6 % (0.1-2.0); Eosinophils # 0.1 K/mm3 (0.0-0.4); Eosinophils % 1.3 % (0.1-12.0); Hematocrit 44.4 % (37.0-47.0); Hemoglobin 14.2 g/dL (12.2-16.2); Lymphocytes # 1.1 K/mm3 (0.7-4.5); Lymphocytes % 15.8 % (10-50); Mean Corpuscular Hemoglobin 31.2 pg (27.0-31.2); Mean Corpuscular Volume 97.4 fl (81-99); Monocytes # 0.4 K/mm3 (0.1-1.0); Monocytes % 6.2 % (1.7-9.3); Neutrophils # 5.2 K/mm3 (1.8-7.8); Neutrophils % 76.1 % (37.0-80.0); Platelet Count 263 K/mm3 (142-424); Red Blood Count 4.56 M/mm3 (4.20-5.40); Red Cell Distribution Width 14.1 % (11.5-17.5); White Blood Count 6.9 K/mm3 (4.8-10.8)
[2023-06-10 11:14] LABS: Hemoglobin A1C 6.1 % (4.0-6.0)
[2023-06-10 11:42] LABS: Chloride 103 mmol/L (98-107); Potassium 4.1 mmoL/L (3.5-5.1); Sodium 139 mmol/L (136-145)
[2023-06-10 11:45] LABS: Alanine Aminotransferase 47 U/L (12-78); Albumin Level 3.5 g/dl (3.5-5.0); Albumin/Globulin Ratio 1.2 (1.1-1.8); Alkaline Phosphatase 124 U/L (38-126); Anion Gap 15.1 mEq/L (5-15); Aspartate Amino Transferase 77 U/L (14-36); Blood Urea Nitrogen 11 mg/dl (7-17); Carbon Dioxide 25 mmol/L (22.0-30.0); Cholesterol 119 mg/dl (140-200); Estimated Glomerular Filt Rate 37 ml/min (>60); GFR (African American) 45 ML/MIN (>60); Total Protein,Serum 6.5 g/dl (6.3-8.2); Triglycerides 145 mg/dl (30-150); VLDL Cholesterol 29 mg/dL (0-40)
[2023-06-10 11:46] LABS: Calcium 9.1 mg/dl (8.4-10.2); Glucose 106 mg/dl (74-100); HDL Cholesterol 24 mg/dl (40-60)
[2023-06-10 11:57] LABS: Direct LDL Cholesterol 72.67 mg/dL (100-129)
== END 2023-06-10 23:59 ==
PROVIDERS: PCP Internal Medicine Adolescent Medicine; Visit Provider Internal Medicine Adolescent Medicine
DX: E11.59 Type 2 diabetes mellitus with other circulatory complications (principal); I25.10 Atherosclerotic heart disease of native coronary artery without angina pectoris; Z79.84 Long term (current) use of oral hypoglycemic drugs
CPT/HCPCS: 36415; 80053; 80061; 83036; 85025

== ENCOUNTER 2023-07-09 07:39 | Outpatient (CLI) | payer OTHER, SELFPAY ==
--- NOTE | 2023-07-09 | CA_ITS ---
APPROVED REPORT Exam: Pharmacologic Technologist: Emely Avila, Ht: 5 ft 6 in Wt: 173 lbs BSA: 1.88 m2 HR: 71 bpm BP: 119/59 mmHg Rhythm: NSR Medical History Medications: Amlodipine,,,,, Irbesartan,,,,, Levothyroxine,,,,, Aspirin,,,,, Pravastatin,,,,, Metformin,,,,, Glimepiride,,,,, HCTZ,,,,, Naproxen,,,,, CloPIdogrel,,,,, BisOPROLOL Fumarate,,,,, TAMIFLU,,,,, Stress Test Details Test: LEXISCAN Reason for pharmacologic stress test: physical limitation. HR Resting HR: 71 bpm Max Heart Rate (APMHR): 147 bpm Max HR Achieved: 83 bpm Target HR (85% APMHR): 125 bpm % of APMHR: 56 Recovery HR: 73 bpm BP Resting BP: 119.0/59.0 mmHg Max BP: 119.0/59.0 mmHg Recovery BP: 103.0/55.0 mmHg ECG Resting ECG: NSR, cannot R/O old septal [place] Stress ECG: No significant ST changes Arrhythmia: None Clinical Exercise duration: 04:00 min Highest Stage Achieved: Exercise capacity: 1.0 METs Stress ECG Conclusion Symptoms: SOA, head & stomach discomfort. No CP. Arrhythmia/Ectopy: None ST-T Changes: No significant ST changes. Conclusion: Unremarkable Lexiscan stress. Myoview images reported separately. Test Summary REST . . . . . . . Resting REST 05:41 . . 71 . 119/ 59 . . Stage 1 01:00 . . 78 . . . . Stage 2 01:00 . . 75 . 98/ 48 . . Stage 3 01:00 . . 72 . 99/ 46 . . Stage 4 01:00 . . 70 . 87/ 46 . Stop exercise at 04:00 RECOVERY 01:00 . . 69 . . . . RECOVERY 02:00 . . 72 . . . . RECOVERY 03:00 . . 76 . . . . RECOVERY 04:00 . . 77 . 103/ 57 . . RECOVERY 05:00 . . 75 . 103/ 55 . . RECOVERY 06:00 . . 74 . 103/ 55 . . RECOVERY 06:32 . . 77 . 103/ 55 . . Electronically signed by : Zohreh Whyte MD 07/12/2023 15:33:20
--- NOTE | 2023-07-09 07:40 | NM_ITS ---
APPROVED REPORT Exam: Nuclear Stress Test Indication: fatigue..abn ECG Patient Location: Outpatient Stress Tech: Emely Ramos [place] Tech:Lo DewittTARAN RT(R)(N) Ht: 5 ft 6 in Wt: 173 lbs Bra Size: 36d HR: 71 bpm BP: 119/59 mmHg BSA: 1.88 m2 TID: 0.96 BMI: 27.9 History: fatigue..abn ECG Procedure: Patient received 0.4 mg of intravenous Lexiscan, resting heart rate 71 bpm, resting blood pressure 119/59 mmHg, with Lexiscan maximum heart rate achieved was 83 bpm which is 85 % of the maximum predicted heart rate and blood pressure was 119/59 mmHg. With Lexiscan, patient denied any complaint of chest pain. Cardiac Stress and Resting SPECT Images: Cardiac Stress and Resting SPECT images were obtained using technetium 99m Myoview 32.9 mCi stress and 10.32 mCi at rest. Resting and stress imaging in supine and prone positions demonstrate no evidence of fixed or reversible perfusion defects. Gated imaging demonstrates normal global and regional LV systolic function. LVEF is calculated at 63%. Conclusion: No evidence of fixed or reversible perfusion defects. Gated imaging demonstrates normal global and regional LV systolic function. LVEF is calculated at 63%. Electronically signed by : Zohreh Whyte MD 07/12/2023 15:34:30
[2023-07-09] MEDS: ISOTOPE MYOVIEW (PER STUDY) 1 DOSE IV (09:43)
[2023-07-09] MEDS: REGADENOSON 0.4MG/5ML SYRINGE 0.400000000000000022 MG IV (09:43)
[2023-07-09] MEDS: SODIUM CHLORIDE 0.9% 10ML SYR (RAD ONLY) 10 ML IV ×2 (09:43)
== END 2023-07-09 23:59 ==
LOC: RAD 07:40
PROVIDERS: PCP Internal Medicine Adolescent Medicine; Visit Provider Nurse Practitioner
DX: I25.10 Atherosclerotic heart disease of native coronary artery without angina pectoris (principal)
CPT/HCPCS: 78452; 93017; 93018; A9502; J0280; J2785

== ENCOUNTER 2023-07-13 16:04 | Outpatient (CLI) | payer OTHER, SELFPAY ==
--- NOTE | 2023-07-13 16:09 | MM_ITS ---
PROCEDURE INFORMATION: Exam: MG Bilateral Screening 3D Mammography Exam date and time: 07/13/2023 4:05 PM Age: 72 years old Clinical indication: Screening mammogram.; Additional info: History of breast cancer TECHNIQUE: Imaging protocol: Bilateral Screening tomosynthesis and 2D mammography including computer-aided detection (CAD) when performed. COMPARISON: 1. MG MM DIG SCREENING MAMM BI W/CAD 07/11/2022 9:43 AM 2. MG MM DIG SCREENING MAMM BI W/CAD 07/10/2021 10:18 AM 3. MG MM DIG SCREENING MAMM BI W/CAD 07/02/2020 8:08 AM 4. MG MM DIG SCREENING MAMM BI W/CAD 06/28/2019 9:15 AM FINDINGS: MAMMOGRAPHY: Breast composition: There are scattered areas of fibroglandular density. Mass: None. Architectural distortion: No new or suspicious architectural distortion. Calcifications: Stable benign-appearing calcifications are present. No new or suspicious cluster of microcalcifications have developed. Asymmetric density: No new or suspicious asymmetric density is present Skin thickening: Right breast skin thickening, status post radiotherapy. Axillary adenopathy: None. Other findings: Stable postoperative findings are present within the right breast IMPRESSION: No mammographic evidence of malignancy. Recommend annual screening mammography unless otherwise clinically indicated. ASSESSMENT: BI-RADS category 2: Benign
== END 2023-07-13 23:59 ==
LOC: RAD 16:05
PROVIDERS: PCP Internal Medicine Adolescent Medicine; Visit Provider Surgery
DX: Z12.31 Encounter for screening mammogram for malignant neoplasm of breast (principal); Z85.3 Personal history of malignant neoplasm of breast
CPT/HCPCS: 77063; 77067

== ENCOUNTER 2023-09-17 15:41 | Emergency (ER) | payer OTHER, SELFPAY ==
[2023-09-17] VITALS (7 sets, daily range): BP systolic 122–156; BP diastolic 71–77; PULSE 82–90; RESP 16–18; TEMP 36.8; O2SAT 91–96; BMI 26.6
--- NOTE | 2023-09-17 16:05 | PC.NURSE ---
DR MURRAY AT BEDSIDE
--- NOTE | 2023-09-17 16:16 | CT_ITS ---
PROCEDURE INFORMATION: Exam: CT Abdomen And Pelvis With Contrast Exam date and time: 09/17/2023 5:07 PM Age: 72 years old Clinical indication: Abdominal pain; Additional info: Abd pain, n/v TECHNIQUE: Imaging protocol: Computed tomography of the abdomen and pelvis with contrast. Radiation optimization: All CT scans at this facility use at least one of these dose optimization techniques: automated exposure control; mA and/or kV adjustment per patient size (includes targeted exams where dose is matched to clinical indication); or iterative reconstruction. Contrast material: ISOVUE; Contrast volume: 75 ml; Contrast route: IV; COMPARISON: CT ABDOMEN PELVIS W CON 05/30/2023 11:42 AM FINDINGS: Lungs: No airspace consolidation or nodules. No pleural effusions.. Liver: No mass. No evidence of fat deposition. No surrounding fluid. Gallbladder and bile ducts: Calcified gallstones are present. No gallbladder wall thickening, abnormal distention, or biliary ductal dilatation. Pancreas: No masses. No ductal dilation. Spleen: No splenomegaly. No masses or surrounding fluid. Adrenal glands: No mass. Kidneys and ureters: Right kidney is small and has cortical thinning with heavy atherosclerotic calcification in the renal artery origin. Stomach and bowel: No intestinal masses, bowel wall thickening, or abnormal luminal dilatation. Diverticula are present in the sigmoid colon without evidence of diverticulitis. Appendix: No evidence of appendicitis. Appendix is retrocecal. Intraperitoneal space: No free air. No masses or significant fluid collection. Vasculature: No aortic aneurysm. Heavy atherosclerotic calcifications in the origins of both renal arteries, right worse than left. Lymph nodes: Several nonspecific lymph nodes in the avery hepatis measure less than 1 cm in diameter. A few suprahilar left para-aortic lymph nodes also measure less than 1 cm. Urinary bladder: No masses or asymmetric wall thickening. Reproductive: Retroflexed uterus is appropriate in size and shape and has no myometrial masses. No adnexal masses. A trace of free fluid is present in the cul-de-sac and both adnexae. Bones/joints: Moderate spinal stenosis at L4-L5 due to grade 1 anterolisthesis and facet hypertrophy mild spinal stenosis at L1-L2 due to concentric disc bulge and disc or posterior longitudinal ligament calcification. Soft tissues: No masses or other abnormalities. IMPRESSION: 1. No acute findings in the abdomen and pelvis. 2. Cholelithiasis. No gallbladder wall thickening or biliary ductal dilatation. 3. Diverticulosis in the sigmoid colon without evidence of diverticulitis. Nonspecific retroperitoneal lymph nodes in the upper abdomen are are nonenlarged and are of unknown significance. No significant change compared to 05/30/2023. 4. Right kidney atrophy. Renal artery stenosis is suspected on the right. Heavy atherosclerotic calcification is present in the origin of the left renal artery without significant stenosis. 5. Spinal stenosis at L4-L5 and at L1-L2 as described above.
[2023-09-17] MEDS: ONDANSETRON 4MG/2ML VIAL 4 MG IV (16:19)
[2023-09-17] MEDS: LACTATED RINGERS 1000ML 1,000 ML 999 ML IV (16:20)
[2023-09-17 16:23] LABS: Basophils # 0.1 K/mm3 (0-0.2); Basophils % 0.7 % (0.1-2.0); Chloride 109 mmol/L (98-107); Eosinophils # 0.2 K/mm3 (0.0-0.4); Eosinophils % 2.2 % (0.1-12.0); Hematocrit 40.6 % (37.0-47.0); Hemoglobin 13.4 g/dL (12.2-16.2); Lymphocytes # 1.7 K/mm3 (0.7-4.5); Lymphocytes % 24.8 % (10-50); Mean Corpuscular HGB Conc 33.1 g/dL (31.8-35.4); Mean Corpuscular Hemoglobin 31.7 pg (27.0-31.2); Mean Corpuscular Volume 95.9 fl (81-99); Mean Platelet Volume 9.2 fl (7.4-10.4); Monocytes # 0.4 K/mm3 (0.1-1.0); Monocytes % 6.4 % (1.7-9.3); Neutrophils # 4.6 K/mm3 (1.8-7.8); Platelet Count 174 K/mm3 (142-424); Red Blood Count 4.24 M/mm3 (4.20-5.40); Red Cell Distribution Width 14.6 % (11.5-17.5); Sodium 142 mmol/L (136-145); White Blood Count 6.9 K/mm3 (4.8-10.8)
--- NOTE | 2023-09-17 16:23 | HMH.EDGENADL ---
Discharge Plan Disposition Patient Disposition: Home, Self-Care Prescriptions Prescriptions: New ondansetron 4 mg tablet,disintegrating 4 mg PO Q6H PRN (Reason: nausea and vomiting) 5 Days Qty: 20 0RF No Action levothyroxine 112 mcg tablet 112 mcg PO DAILYDM Patient Comments: TAKE 1 TABLET BY MOUTH EVERY DAY FOR 90 DAYS clopidogrel 75 mg tablet 75 mg PO DAILY 30 Days Qty: 90 4RF Ozempic 2 mg/dose (8 mg/3 mL) pen injector 2 mg SQ WEEKLY Qty: 3 2RF bisoprolol fumarate 5 mg tablet 5 mg PO DAILY Qty: 30 2RF losartan-hydrochlorothiazide 50-12.5 mg tablet 1 tab PO DAILY Qty: 30 2RF atorvastatin 40 mg tablet 80 mg PO HS Qty: 180 3RF hydroxyzine pamoate 25 mg capsule 25 mg PO TIDP PRN (Reason: Itching) Patient Comments: TAKE 1 CAPSULE BY MOUTH THREE TIMES A DAY NEEDED FOR ITCHING FOR 14 DAYS aspirin 81 mg Tablet,Delayed Release (Dr/Ec) 81 mg PO DAILY 30 Days Qty: 30 0RF Referrals Follow up/Referrals: Krishan Caldwell MD [Primary Care Provider] - See instructions Activity Restrictions/Add. Instructions Additional Instructions/Restrictions: No emergent medical condition identified this is most likely consistent with a viral cause of your symptoms. Please return to the emergency part with any significant worsening of your discomfort and to continue to drink fluids such as Gatorade or Powerade as needed. Clinical Impressions Clinical Impression: Nausea & vomiting, Abdominal pain Instructions Patient Instructions: DI for Acute Abdominal Pain Discharge ED Provider: Elmer Barron General Adult HPI General Chief complaint: Abdominal Pain Stated complaint: vomiting, SOA Time Seen by Provider: 09/17/23 15:46 Mode of Arrival: Wheelchair Source of Information: Patient Limitations: No Limitations Description of Symptoms (Recalled from ER Triage Doc. by RN): PT C/O N/V AND ABDOMINAL PAIN THAT STARTED ABOUT 2100 LAST NIGHT. DENIES DIARRHEA, NO FEVER History of Present Illness HPI narrative: Patient is a 72-year-old female presenting today with mid periumbilical pain with nausea and vomiting that began last night around 9 PM. States that it has been intermittent but she has significant abdominal discomfort in the mid area of her abdomen. Denies any flatus or bowel movement since yesterday evening. Has had several episodes of vomiting. It was told by an observant that her emesis was feculent in nature. She has no history of significant abdominal discomfort or surgeries. She has a history of coronary artery disease she has not had any chest pain or shortness of breath or any chest discomfort. No fevers or chills. No sick contacts that she is aware of. Related Data Home Medications Medication Instructions Recorded Confirmed levothyroxine 112 mcg tablet 112 mcg PO DAILYDM 01/13/22 09/10/23 hydroxyzine pamoate 25 mg capsule 25 mg PO TIDP PRN Itching 05/30/23 09/10/23 Previous Rx's Medication Instructions Recorded aspirin 81 mg tablet,delayed 81 mg PO DAILY 30 days #30 tabs 06/05/23 release clopidogrel 75 mg tablet 75 mg PO DAILY 30 days #90 tabs 06/11/23 atorvastatin 40 mg tablet 80 mg (2 x 40 mg) PO HS #180 tabs 07/08/23 bisoprolol fumarate 5 mg tablet 5 mg PO DAILY #30 tabs 09/10/23 losartan 50 mg-hydrochlorothiazide 1 tab PO DAILY #30 tabs 09/10/23 12.5 mg tablet semaglutide 2 mg/dose (8 mg/3 mL) 2 mg (0.75 mL) SQ WEEKLY #3 mL 09/10/23 subcutaneous pen injector (Ozempic) ondansetron 4 mg disintegrating 4 mg PO Q6H PRN nausea and 09/17/23 tablet vomiting 5 days #20 tabs Allergies Allergy/AdvReac Type Severity Reaction Status Date / Time niacin [NIACIN] Allergy Intermediate I-RASH Verified 09/10/23 08:49 [facility] Disclaimer: The information contained in this section may have been updated after the patient was seen, as this information can be updated by other users. Medical History (Updated 09/17/23 @ 16:28 by Elmer Barron MD) Hypotension History of breast cancer in female Diabetes mellitus Hearing impaired Non-ST elevation [place] (NSTEMI) Influenza A Hypothyroidism Hypertensive urgency Influenza A NSTEMI (non-ST elevated myocardial infarction) Bronchitis Sinusitis Laryngitis Other specified symptoms and signs involving the circulatory and respiratory systems Small vessel arterial disease due to type 2 diabetes mellitus Subungual hematoma of toe of right foot Right second toe ulcer Diabetes mellitus with diabetic neuropathy Acute hyperglycemia Vertigo Breast cancer Osteoarthritis of feet, bilateral Acquired hallux valgus of both feet Acquired hammer toes of both feet Onychogryphosis Onychodystrophy Pre-ulcerative calluses Degenerative disc disease, cervical Surgical History History of colonoscopy History of breast biopsy Family History Other No significant family history Social History Smoking Status: Never smoker second hand exposure: No alcohol intake: never counseling provided: none substance use type: denies use current occupational status: retired Travel in the last 8 weeks: None household members: spouse housing: house current occupational exposures/hazards: No caffeine: Yes ROS Obtained: Yes All systems reviewed & no additional complaints except as documented Physical Exam General General appearance: alert and in no apparent distress Respiratory Respiratory exam: Present normal lung sounds bilaterally Cardiovascular Cardiovascular exam: Present regular rate Abdominal Exam Abdominal exam: Present soft and tenderness (There is periumbilical tenderness with no significant rebound or guarding or tenderness elsewhere) Neurological Exam Neurological exam: Present alert and oriented X3 Medical Decision Making Hollis Inquiry Pt receiving controlled substance: No Vital Signs: 09/17/23 15:42 09/17/23 16:30 09/17/23 17:01 Temperature 98.2 F Temperature Source Oral Pulse Rate 83 83 Pulse Rate [Radial] 90 Respiratory Rate 18 Blood Pressure 133/76 156/77 H Blood Pressure [Left Arm] 122/75 Blood Pressure Mean 92 Blood Pressure Mean [Left Arm] 90 Blood Pressure Source [Left Arm] Automatic Cuff Blood Pressure Position [Left Arm] Sitting 02 Sat by Pulse Oximetry 95 96 95 Oxygen Delivery Method Room Air Room Air 09/17/23 17:30 09/17/23 18:00 09/17/23 18:30 Temperature Temperature Source Pulse Rate 88 83 82 Pulse Rate [Radial] Respiratory Rate Blood Pressure 133/75 137/71 126/72 Blood Pressure [Left Arm] Blood Pressure Mean Blood Pressure Mean [Left Arm] Blood Pressure Source [Left Arm] Blood Pressure Position [Left Arm] 02 Sat by Pulse Oximetry 94 L 91 L 96 Oxygen Delivery Method Room Air Room Air Room Air Lab Data Lab results reviewed: Yes I reviewed the patient's lab results. Lab Results 09/17/23 15:58: WBC 6.9, RBC 4.24, Hgb 13.4, Hct 40.6, MCV 95.9, MCH 31.7 H, MCHC 33.1, RDW 14.6, Plt Count 174, MPV 9.2, Neut % (Auto) 66.0, Lymph % (Auto) 24.8, [place] % (Auto) 6.4, Eos % (Auto) 2.2, Baso % (Auto) 0.7, Neut # (Auto) 4.6, Lymph # (Auto) 1.7, [place] # (Auto) 0.4, Eos # (Auto) 0.2, Baso # (Auto) 0.1, Sodium 142, Potassium 3.5, Chloride 109 H, Carbon Dioxide 26, Anion Gap 10.5, BUN 17, Creatinine 1.40 H, Estimated Creat Clear 42, Estimated GFR 37 L, Est GFR ( Amer) 45 L, Glucose 116 H, Lactate 1.7, Calcium 10.0, Total Bilirubin 1.1, AST 45 H, ALT 26, Alkaline Phosphatase 107, Troponin I < 0.01, Total Protein 6.3, Albumin 3.9, Globulin 2.4, Albumin/Globulin Ratio 1.6, Lipase 165 09/17/23 15:58 09/17/23 15:58 Orders (Tests/Meds): ED MEDICATIONS Discontinued Medications Generic Name Dose Route Start Last Admin Trade Name Freq PRN Reason Stop Dose Admin Lactated Ringer's 1,000 mls @ 999 mls/hr 09/17/23 16:15 09/17/23 16:20 Lactated Ringer's 1000 Ml Bag IV 09/17/23 17:15 999 mls/hr .Q1H1M JAMEEL Administration Lactated Ringer's 1,000 mls @ 999 mls/hr 09/17/23 16:30 09/17/23 16:21 Lactated Ringer's 1000 Ml Bag IV 09/17/23 17:30 Not Given .Q1H1M JAMEEL Iopamidol 75 ml 09/17/23 17:07 09/17/23 17:10 Iopamidol-370 (76%);100ml Bottle IV 09/17/23 17:08 75 ml ONCE ONE Administration Morphine Sulfate 4 mg 09/17/23 16:16 09/17/23 16:27 Morphine 4mg/Ml Syringe IV 09/17/23 16:17 4 mg ONCE ONE Administration Ondansetron HCl 4 mg 09/17/23 16:15 09/17/23 16:19 Ondansetron 4mg/2ml Vial IV 09/17/23 16:16 4 mg ONCE ONE Administration Ondansetron HCl 4 mg 09/17/23 16:16 09/17/23 16:21 Ondansetron 4mg/2ml Vial IV 09/17/23 16:17 Not Given ONCE ONE Sodium Chloride 10 ml 09/17/23 17:07 09/17/23 17:10 Sodium Chloride 0.9% 10ml Syr (Rad Only) IV 09/17/23 17:08 10 ml ONCE ONE Administration ORDERS Category Date Time Status CT abdomen pelvis w con Stat Cat Scan 09/17/23 16:16 Completed Complete Blood Count Auto Diff Stat Lab 09/17/23 15:58 Completed Comprehensive Metabolic Panel Stat Lab 09/17/23 15:58 Completed Lactic Acid Stat Lab 09/17/23 15:58 Completed Lipase Stat Lab 09/17/23 15:58 Completed Troponin I Q3H Lab 09/17/23 19:15 Ordered Troponin I Q3H Lab 09/17/23 22:15 Ordered Troponin I Stat Lab 09/17/23 15:58 Completed Medical Decision Narrative: Patient is a 72 with above history with periumbilical abdominal pain nausea and vomiting that is isolated in nature no diarrhea she has had no bowel movement or flatus in the last 24 hours make me concerned about a possible bowel obstruction. It is possible this is a viral gastritis and will give her IV fluids nausea medicine pain medicine get a CT scan for further evaluation and management. They are highly concerned that this is her heart however she has no exertional symptoms no chest pain or shortness of breath it is incredibly unlikely but however we will get a EKG and single troponin to rule out myocardial injury or acute coronary syndrome. Will reassess after this initial workup is complete Reassessment 6:49 PM patient serial abdominal exams are benign CT scan was performed which I personally interpreted also reviewed radiology read and there is no acute emergent condition identified. Labs are unremarkable she does have baseline CKD but no other significant abnormalities. This is most likely viral. Zofran has been prescribed she has been advised to take aggressive p.o. fluids at home and return with any worsening symptoms. Critical Care Critical Care Time Critical Care Time: No
[2023-09-17 16:24] LABS: Potassium 3.5 mmoL/L (3.5-5.1)
[2023-09-17 16:26] LABS: Alanine Aminotransferase 26 U/L (12-78); Albumin Level 3.9 g/dl (3.5-5.0); Albumin/Globulin Ratio 1.6 (1.1-1.8); Alkaline Phosphatase 107 U/L (38-126); Anion Gap 10.5 mEq/L (5-15); Aspartate Amino Transferase 45 U/L (14-36); Bilirubin,Total 1.1 mg/dl (0.2-1.3); Blood Urea Nitrogen 17 mg/dl (7-17); Carbon Dioxide 26 mmol/L (22.0-30.0); Creatinine Clearance Estimated 42 mL/min (50-200); Estimated Glomerular Filt Rate 37 ml/min (>60); GFR (African American) 45 ML/MIN (>60); Globulin 2.4 g/dL (1.3-3.2); Glucose 116 mg/dl (74-100); Total Protein,Serum 6.3 g/dl (6.3-8.2)
[2023-09-17] MEDS: MORPHINE 4MG/ML SYRINGE 4 MG IV (16:27)
[2023-09-17 16:32] LABS: Lipase 165 U/L (23-300)
[2023-09-17 16:33] LABS: Lactic Acid 1.7 mmol/L (0.7-2.1)
--- NOTE | 2023-09-17 16:42 | ECG_ITS ---
APPROVED REPORT Exam: Resting ECG HR:84 bpm ECG Measurements Heart Rate 84 AXES MT 198 P 76 QRSd 102 QRS 66 QT 407 T 72 QTc 447 Conclusion SINUS RHYTHM ANTEROSEPTAL MYOCARDIAL INFARCTION , PROBABLY OLD [40+ ms Q WAVE IN V1-V4] ABNORMAL ECG UNCONFIRMED REPORT Electronically signed by : Jerry Barron, 09/17/2023 23:13:13
[2023-09-17 16:49] LABS: Troponin I < 0.01 ng/ml (0.00-0.034)
--- NOTE | 2023-09-17 17:00 | PC.NURSE ---
ROUNDED ON PT, FAMILY AT BEDSIDE. CALL LIGHT WITHIN REACH. NO NEEDS AT THIS TIME
--- NOTE | 2023-09-17 17:06 | PC.NURSE ---
PT TO CT
[2023-09-17] MEDS: SODIUM CHLORIDE 0.9% 10ML SYR (RAD ONLY) 10 ML IV (17:10)
[2023-09-17] MEDS: IOPAMIDOL-370 (76%);100ML BOTTLE 75 ML IV (17:10)
--- NOTE | 2023-09-17 18:47 | PC.NURSE ---
DR MURRAY AT BEDSIDE TO UPDATE PT
== END 2023-09-17 18:56 | disposition home or self-care (01) ==
PROVIDERS: Emergency Provider Student in an Organized Health Care Education/Training Program; PCP Internal Medicine Adolescent Medicine
DX: R10.33 Periumbilical pain (principal); R11.2 Nausea with vomiting, unspecified; E11.40 Type 2 diabetes mellitus with diabetic neuropathy, unspecified; E03.9 Hypothyroidism, unspecified; I10 Essential (primary) hypertension; E78.5 Hyperlipidemia, unspecified; Z79.85 Long-term (current) use of injectable non-insulin antidiabetic drugs
CPT/HCPCS: 74177; 80053; 83605; 83690; 84484; 85025; 93005; 96361; 96374; 96375; 99285; J2405; Q9967

== ENCOUNTER 2024-02-16 08:28 | Day surgery (SDC) | payer OTHER, SELFPAY ==
[2023-12-11 14:14] VITALS: BMI 26.6
--- NOTE | 2024-02-16 08:47 | EXP.ANES.CKL ---
[facility] Disclaimer: The information contained in this section may have been updated after the patient was seen, as this information can be updated by other users. Medical History Hypotension History of breast cancer in female Diabetes mellitus Hearing impaired Non-ST elevation [place] (NSTEMI) Influenza A Hypothyroidism Hypertensive urgency Influenza A NSTEMI (non-ST elevated myocardial infarction) Bronchitis Sinusitis Laryngitis Other specified symptoms and signs involving the circulatory and respiratory systems Small vessel arterial disease due to type 2 diabetes mellitus Subungual hematoma of toe of right foot Right second toe ulcer Diabetes mellitus with diabetic neuropathy Acute hyperglycemia Vertigo Breast cancer Osteoarthritis of feet, bilateral Acquired hallux valgus of both feet Acquired hammer toes of both feet Onychogryphosis Onychodystrophy Pre-ulcerative calluses Degenerative disc disease, cervical Surgical History History of colonoscopy History of breast biopsy Family History Other No significant family history Social History Smoking Status: Never smoker second hand exposure: No alcohol intake: never counseling provided: none substance use type: denies use current occupational status: retired Travel in the last 8 weeks: None household members: spouse housing: house current occupational exposures/hazards: No caffeine: Yes [facility] Anesthesia Checklist Patient Identification Patient Identification: Arm Band and Verbal (Name & ) Structural Data Admitted From: Home Planned Operative Procedure/s: Colonoscopy Consent for Planned Operative Procedure(s) Verified: Yes Verified Documents: Surgical Consent and History and Physical NPO Status Verified Time NPO: 00:00 Additional verifications Anesthesia Reactions: No Airway Assessment Mallampati Score:: Class II C-Spine Mobility Assessed: Yes TMJ Mobility Assessed: Yes Dentition: Good Dentition Neurological Assessment Level of Consciousness: Awake Hx Seizures: No Numbness or tingling in extremities: No Anesthesia Plan Anesthesia Risk discussed: Yes Anesthesia Plan: Verified ASA Class: III Anesthesia Type: MAC
--- NOTE | 2024-02-16 08:47 | HMH.SCOPE ---
Procedure: Date: 02/16/24 Patient Date of :: 1950 Procedure Performed:: Colonoscopy with polypectomy Indications:: History of colon polyps Note last colonoscopy in November 2021 was somewhat complicated by moderate spasticity and moderate tortuosity. Hemorrhoidal cushions noted. Adenomas of the right colon, cecum, and at 35 cm were excised. Performing Provider:: Mark Umana MD Referring Provider:: . Sedation:: Monitored anesthesia care Procedure:: After informed consent was obtained the patient was taken to the endoscopy suite. Sedation ensued after the patient was transferred to the left lateral decubitus position. Pulse, blood pressure, and oxygen saturation were monitored throughout the procedure. Digital rectal exam revealed no significant abnormality. The colonoscope was placed in position. The entire colon was evaluated. The colonoscope was carefully removed and the patient was transferred to recovery in stable condition. Please see findings and specimens below for detail. Findings:: Bowel preparation relatively fair Unchanged hemorrhoidal cushions Unchanged spasticity/tortuosity Mild scattered sigmoid diverticulosis Adjacent right colon polyps Specimens:: Adjacent right colon polyps (cold snare and cold biopsy forceps) Recommendations:: Timing of repeat colonoscopy is pending pathology will likely be around 3-5 years. Complications:: No immediate Estimated blood obtained (mL): 1 Colonoscopy Component Colonoscopy Component Was a colonoscopy performed during today's procedure?: Yes Recommended follow up colonoscopy of at least 10 years?: No If no, follow up colonoscopy recommended in ___ years?: (See above) Reason for not recommending >/= 10 yr follow-up interval?: (See above)
[2024-02-16 08:48] VITALS: BP 132/65; PULSE 75; RESP 18; TEMP 36.6; O2SAT 96
[2024-02-16] MEDS: LACTATED RINGERS 1000ML 1,000 ML 25 ML IV (09:00)
[2024-02-16 09:04] VITALS: O2SAT 98
[2024-02-16 09:07] LABS: POC Glucose,Bedside 84 (70-110)
[2024-02-16 09:50] VITALS: BP 134/68; PULSE 64; RESP 12; TEMP 36.6; O2SAT 97
[2024-02-16 09:59] VITALS: BP 135/75; PULSE 66; RESP 16; O2SAT 99
[2024-02-16 10:09] VITALS: BP 144/67; PULSE 69; RESP 15; O2SAT 98
[2024-02-16 10:19] VITALS: BP 150/76; PULSE 67; RESP 18; O2SAT 99
== END 2024-02-16 10:20 | disposition home or self-care (01) ==
PROVIDERS: PCP Internal Medicine Adolescent Medicine; Visit Provider Surgery
PROC: 0DJD8ZZ Inspection of Lower Intestinal Tract, Via Natural or Artificial Opening Endoscopic (ICD-10-PCS; CPT 45385; principal; 2024-02-16 09:30)
DX: Z86.010 Personal history of colon polyps (principal); K64.9 Unspecified hemorrhoids; K57.30 Diverticulosis of large intestine without perforation or abscess without bleeding; K63.5 Polyp of colon
CPT/HCPCS: 45385; 82962; J7120

== ENCOUNTER 2024-02-26 14:08 | Outpatient (CLI) | payer OTHER, SELFPAY ==
--- NOTE | 2024-02-26 14:09 | US_ITS ---
PROCEDURE INFORMATION: Exam: US Right Breast, Complete Exam date and time: 02/26/2024 2:12 PM Age: 73 years old Clinical indication: History of right breast cancer with right lumpectomy and radiation 7 years ago. Complains of a hardness in the right breast, upper outer quadrant. TECHNIQUE: Imaging protocol: Complete ultrasound of all four quadrants of the right breast and the retroareolar regions, including ultrasound of the axilla when performed. COMPARISON: MG MM DIG SCREENING MAMM BI W/CAD 07/13/2023 4:05 PM FINDINGS: ULTRASOUND: Breast ultrasound findings: Scanning of the right breast in the upper outer quadrant in the area of hardening, over a scar region, 10 o'clock axis, 4 cm from the nipple demonstrates diffuse skin thickening and shadowing over the scar lesion which may be related to the patient's known history of radiation. There is slight cortical thickening of the axillary lymph nodes on the right. There is no discrete mass. IMPRESSION: Nonspecific skin thickening and right axillary lymph node prominence. A diagnostic right breast mammogram is recommended for further evaluation. ASSESSMENT: BI-RADS Category 0: Incomplete- Need Additional Imaging Evaluation.
== END 2024-02-26 23:59 | disposition home or self-care (01) ==
LOC: RAD 14:09
PROVIDERS: PCP Internal Medicine Adolescent Medicine; Visit Provider Surgery
DX: R92.1 Mammographic calcification found on diagnostic imaging of breast (principal); Z85.3 Personal history of malignant neoplasm of breast
CPT/HCPCS: 76641

== ENCOUNTER 2024-03-07 10:27 | Outpatient (CLI) | payer OTHER, SELFPAY ==
[2024-03-07 11:04] LABS: Basophils # 0.1 K/mm3 (0-0.2); Basophils % 0.8 % (0.1-2.0); Eosinophils # 0.3 K/mm3 (0.0-0.4); Hematocrit 40.3 % (37.0-47.0); Hemoglobin 13.6 g/dL (12.2-16.2); Lymphocytes # 1.7 K/mm3 (0.7-4.5); Lymphocytes % 23.9 % (10-50); Mean Corpuscular HGB Conc 33.7 g/dL (31.8-35.4); Mean Corpuscular Hemoglobin 30.6 pg (27.0-31.2); Mean Corpuscular Volume 90.7 fl (81-99); Mean Platelet Volume 9.6 fl (7.4-10.4); Monocytes # 0.6 K/mm3 (0.1-1.0); Monocytes % 8.2 % (1.7-9.3); Neutrophils # 4.3 K/mm3 (1.8-7.8); Neutrophils % 62.1 % (37.0-80.0); Platelet Count 161 K/mm3 (142-424); Red Blood Count 4.44 M/mm3 (4.20-5.40); Red Cell Distribution Width 14.8 % (11.5-17.5)
[2024-03-07 12:10] LABS: Alanine Aminotransferase 25 U/L (12-78); Albumin/Globulin Ratio 1.8 (1.1-1.8); Alkaline Phosphatase 107 U/L (38-126); Anion Gap 8.9 mEq/L (5-15); Aspartate Amino Transferase 41 U/L (14-36); Bilirubin,Total 0.8 mg/dl (0.2-1.3); Blood Urea Nitrogen 18 mg/dl (7-17); Carbon Dioxide 29 mmol/L (22.0-30.0); Chloride 105 mmol/L (98-107); Estimated Glomerular Filt Rate 37 ml/min (>60); GFR (African American) 44 ML/MIN (>60); Globulin 2.2 g/dL (1.3-3.2); Glucose 88 mg/dl (74-100); Potassium 3.9 mmoL/L (3.5-5.1); Sodium 139 mmol/L (136-145); Total Protein,Serum 6.2 g/dl (6.3-8.2)
== END 2024-03-07 23:59 | disposition home or self-care (01) ==
LOC: LAB 10:29
PROVIDERS: PCP Internal Medicine Adolescent Medicine; Visit Provider Internal Medicine Medical Oncology
DX: C50.919 Malignant neoplasm of unspecified site of unspecified female breast (principal)
CPT/HCPCS: 36415; 80053; 85025

== ENCOUNTER 2024-03-08 14:44 | Outpatient (CLI) | payer OTHER, SELFPAY ==
--- NOTE | 2024-03-08 14:44 | MM_ITS ---
PROCEDURE INFORMATION: Exam: MG Right Diagnostic Breast Tomosynthesis Exam date and time: 03/08/2024 2:45 PM Age: 73 years old Clinical indication: Recall after sonography 02/26/2024 for mammographic evaluation of hardness in the right breast upper outer quadrant correlated sonographically to diffuse skin thickening and shadowing at the scar. Also, slight cortical thickening of the axillary lymph nodes on the right were noted. TECHNIQUE: Imaging protocol: Right Diagnostic tomosynthesis and 2D mammography including computer-aided detection (CAD) when performed. Unilateral or bilateral exam. COMPARISON: 1. MG MM DIG SCREENING MAMM BI W/CAD 07/13/2023 4:05 PM 2. MG MM DIG SCREENING MAMM BI W/CAD 07/11/2022 9:43 AM 3. MG MM DIG SCREENING MAMM BI W/CAD 07/10/2021 10:18 AM 4. MG MM DIG SCREENING MAMM BI W/CAD 07/02/2020 8:08 AM US BREAST RT COMPLETE 02/26/2024 2:12 PM FINDINGS: MAMMOGRAPHY: Breast mammogram findings: Breast composition: There are scattered areas of fibroglandular density. Mass: None. Architectural distortion: Stable architectural distortion, deformity, surgical clips, and coarse dystrophic calcifications of fat necrosis at the lumpectomy site in the upper-outer quadrant, since at least 2020. Calcifications: No suspicious calcifications. Asymmetric density: None. Skin thickening: Stable right skin thickening, since at least 2020 Axillary adenopathy: None. A few partly imaged mammographically unremarkable axillary lymph nodes. IMPRESSION: See comments Stable mammographic appearance of the right breast status post lumpectomy with persistent skin thickening. Correlate clinically for history of hardness in the upper outer quadrant, consider adding MRI. Mammographically unremarkable axillary lymph nodes, suggest 3 month follow-up right axillary sonography, unless otherwise clinically indicated. ASSESSMENT: BI-RADS Category 3: Probably benign.
== END 2024-03-08 23:59 | disposition home or self-care (01) ==
LOC: RAD 14:44
PROVIDERS: PCP Internal Medicine Adolescent Medicine; Visit Provider Surgery
DX: N63.11 Unspecified lump in the right breast, upper outer quadrant (principal)
CPT/HCPCS: 77061; 77065; G0279

== ENCOUNTER 2024-05-04 10:39 | Outpatient (CLI) | payer OTHER, SELFPAY ==
[2024-05-04 11:03] LABS: Basophils # 0.1 K/mm3 (0-0.2); Basophils % 0.8 % (0.1-2.0); Eosinophils # 0.3 K/mm3 (0.0-0.4); Eosinophils % 3.7 % (0.1-12.0); Hematocrit 42.1 % (37.0-47.0); Hemoglobin 13.8 g/dL (12.2-16.2); Lymphocytes # 1.6 K/mm3 (0.7-4.5); Lymphocytes % 22.5 % (10-50); Mean Corpuscular HGB Conc 32.9 g/dL (31.8-35.4); Mean Corpuscular Volume 91.3 fl (81-99); Mean Platelet Volume 9.9 fl (7.4-10.4); Monocytes # 0.6 K/mm3 (0.1-1.0); Monocytes % 8.2 % (1.7-9.3); Neutrophils # 4.5 K/mm3 (1.8-7.8); Neutrophils % 64.9 % (37.0-80.0); Platelet Count 162 K/mm3 (142-424); Red Blood Count 4.61 M/mm3 (4.20-5.40); Red Cell Distribution Width 14.6 % (11.5-17.5); White Blood Count 6.9 K/mm3 (4.8-10.8)
[2024-05-04 11:33] LABS: Alanine Aminotransferase 35 U/L (12-78); Albumin Level 4.1 g/dl (3.5-5.0); Alkaline Phosphatase 136 U/L (38-126); Anion Gap 11.2 mEq/L (5-15); Aspartate Amino Transferase 56 U/L (14-36); Bilirubin,Total 0.6 mg/dl (0.2-1.3); Blood Urea Nitrogen 19 mg/dl (7-17); Calcium 9.6 mg/dl (8.4-10.2); Carbon Dioxide 28 mmol/L (22.0-30.0); Chloride 107 mmol/L (98-107); Chol/HDL Ratio 2.6 (1-3.5); Cholesterol 111 mg/dl (140-200); Estimated Glomerular Filt Rate 37 ml/min (>60); GFR (African American) 44 ML/MIN (>60); Globulin 2.1 g/dL (1.3-3.2); Glucose 83 mg/dl (74-100); HDL Cholesterol 42 mg/dl (40-60); Potassium 4.2 mmoL/L (3.5-5.1); Sodium 142 mmol/L (136-145); Total Protein,Serum 6.2 g/dl (6.3-8.2); Triglycerides 87 mg/dl (30-150); VLDL Cholesterol 17 mg/dL (0-40)
[2024-05-04 11:44] LABS: Direct LDL Cholesterol 56.57 mg/dL (100-129)
[2024-05-04 11:51] LABS: Free Thyroxine Index 3.4 ug/dL (5.93-13.13); T4 (Thyroxine) 9.5 ug/dl (5.53-11.0); Triiodothryronine (T3) Uptake 36 % (23.5-40.5)
[2024-05-04 12:04] LABS: Thyroid Stimulating Hormone < 0.02 uIU/mL (0.465-4.68)
== END 2024-05-04 23:59 | disposition home or self-care (01) ==
LOC: LAB 10:40
PROVIDERS: PCP Internal Medicine Adolescent Medicine; Visit Provider Internal Medicine Adolescent Medicine
DX: N18.31 Chronic kidney disease, stage 3a (principal); E03.9 Hypothyroidism, unspecified; E78.5 Hyperlipidemia, unspecified
CPT/HCPCS: 36415; 80050; 80053; 80061; 84436; 84443; 84479; 85025

== ENCOUNTER 2024-05-10 09:31 | Day surgery (SDC) | payer OTHER, SELFPAY ==
[2024-05-10] VITALS (7 sets, daily range): BP systolic 150–189; BP diastolic 71–85; PULSE 66–79; RESP 16–18; TEMP 36.1–36.6; O2SAT 93–100; BMI 26.3
[2024-05-10] MEDS: CYCLOPENTOLATE 2% OPHTH SOLN 2ML BOTTLE OP ×3 (10:41→10:52)
[2024-05-10] MEDS: PHENYLEPHRINE 2.5% OPHTH SOLN 2ML OP ×3 (10:41→10:52)
[2024-05-10] MEDS: TETRACAINE 0.5% OPTH SOL 15ML OP ×3 (10:41→10:52)
[2024-05-10 11:00] LABS: POC Glucose,Bedside 91 (70-110)
[2024-05-10] MEDS: MIDAZOLAM 2MG/2ML VIAL 2 MG (12:30)
[2024-05-10] MEDS: TOBRAMYCIN/DEX OPTH SUSP 2.5ML OP (12:36)
[2024-05-10] MEDS: TIMOLOL 0.5% OPTH SOLN 5ML OP (12:36)
[2024-05-10] MEDS: LIDOCAINE 1% PF 2ML AMPULE 2 ML IJ (12:37)
[2024-05-10] MEDS: SODIUM CHLORIDE 0.9% 10ML FLUSH SYRINGE 10 ML IV (12:37)
== END 2024-05-10 13:07 | disposition home or self-care (01) ==
PROVIDERS: PCP Internal Medicine Adolescent Medicine; Visit Provider Ophthalmology
PROC: (CPT 66984; principal; 2024-05-10 13:00)
DX: H26.9 Unspecified cataract (principal)
CPT/HCPCS: 66984; 82962; J2250; V2632

== ENCOUNTER 2024-06-14 06:53 | Day surgery (SDC) | payer OTHER, SELFPAY ==
[2024-06-08 14:41] VITALS: BMI 27.1
[2024-06-14] VITALS (8 sets, daily range): BP systolic 149–200; BP diastolic 72–102; PULSE 67–80; RESP 16–18; TEMP 36.2–36.6; O2SAT 94–97
[2024-06-14] MEDS: CYCLOPENTOLATE 2% OPHTH SOLN 2ML BOTTLE OP ×3 (07:20→07:30)
[2024-06-14] MEDS: PHENYLEPHRINE 2.5% OPHTH SOLN 2ML OP ×3 (07:20→07:30)
[2024-06-14] MEDS: TETRACAINE 0.5% OPTH SOL 15ML OP ×3 (07:20→07:30)
[2024-06-14 07:31] LABS: POC Glucose,Bedside 86 (70-110)
[2024-06-14] MEDS: MIDAZOLAM 2MG/2ML VIAL 1 MG IV (08:52)
[2024-06-14] MEDS: TOBRAMYCIN/DEX OPTH SUSP 2.5ML OP (09:03)
[2024-06-14] MEDS: LIDOCAINE 1% PF 2ML AMPULE 2 ML IJ (09:03)
[2024-06-14] MEDS: TIMOLOL 0.5% OPTH SOLN 5ML OP (09:03)
[2024-06-14] MEDS: SODIUM CHLORIDE 0.9% 10ML FLUSH SYRINGE 10 ML IV (09:04)
--- NOTE | 2024-06-14 10:34 | HMH.PROCNOTE ---
[facility] Procedure Note Date: 06/14/24 Time: 10:34 Procedure Note:: Preoperative Diagnosis: Cataract combined NS Cortical Complex [Right] Eye Postop diagnosis: same Operation: Microscopic phacoemulsification with intraocular lens implant [Right] Eye Specimen: None Blood Loss: None The patient was examined in the office with a complaint of poor vision in the [right] eye. The patient reports that this interferes with ADLs such as reading, watching TV and/or driving or the vision is like looking through a foggy haze and is very troubling. The patient was examined and found to have a visually significant cataract with best corrected vision of [20/400] by refraction and/or glare testing. Treatment options, risks and benefits were explained and the patient elected to have cataract surgery in an attempt to improve their vision. The patient had the eye anesthetized with topical tetracaine, the eye ways prepped and draped in the usual fashion for cataract surgery. A paracentesis and a temporal keratotomy were made. 0.2cc of 1% lidocaine PF was placed into the anterior chamber. And aqueous/viscoelastic exchange was done and a 360 degree capsulorexis was performed. Through hydrodissection and delineation with BSS on a cannula was done. The lens nucleus was phecoemulsified with CDE of [6.69]. Residual cortical material was removed using automated I&A The capsular bag was deepened with viscoelastica and a PCIOL was placed in the capsular bag with good centration and stability. Residual viscoelastic was removed using automated I&A. The keratotomy incision was hydrated with BSS on a cannula. The wound were checked and found to be water tight. IOP was checked digitally and adjusted as needed so as not to be too high. 1 drop of timolol 0.5%, ofloxacin, prednisolone acetate and ketorolac was instilled and eye shield taped over the eye. The patient was taken to recovery in good condition and will be seen postoperatively.
== END 2024-06-14 09:30 | disposition home or self-care (01) ==
PROVIDERS: PCP Internal Medicine Adolescent Medicine; Visit Provider Ophthalmology
PROC: (CPT 66984; principal; 2024-06-14 08:30)
DX: H25.811 Combined forms of age-related cataract, right eye (principal)
CPT/HCPCS: 66984; 82962; J2250; V2632

== ENCOUNTER 2024-07-14 07:42 | Outpatient (CLI) | payer OTHER, SELFPAY ==
--- NOTE | 2024-07-14 07:43 | MM_ITS ---
PROCEDURE INFORMATION: Exam: MG Bilateral Screening 3D Mammography Exam date and time: 07/14/2024 8:06 AM Age: 73 years old Clinical indication: Screening examination, personal history of right breast cancer and right lumpectomy. TECHNIQUE: Imaging protocol: Bilateral Screening tomosynthesis and 2D mammography including computer-aided detection (CAD) when performed. COMPARISON: 1. MG MM DIG MAMM DX UNILAT RT CAD 03/08/2024 2:45 PM 2. MG MM DIG SCREENING MAMM BI W/CAD 07/13/2023 4:05 PM FINDINGS: MAMMOGRAPHY: Breast composition: There are scattered areas of fibroglandular density. Mass: None. Architectural distortion: Normal postlumpectomy changes are seen on the right including post surgical distortion, benign-type calcifications, parenchymal density, and skin thickening. Calcifications: No suspicious calcifications. Asymmetric density: None. Skin thickening: None. Axillary adenopathy: None. IMPRESSION: No mammographic evidence of malignancy. Annual screening is recommended unless otherwise clinically indicated. ASSESSMENT: BI-RADS Category 2: Benign.
== END 2024-07-14 23:59 | disposition home or self-care (01) ==
LOC: RAD 07:43
PROVIDERS: PCP Internal Medicine Adolescent Medicine; Visit Provider Surgery
DX: Z12.31 Encounter for screening mammogram for malignant neoplasm of breast (principal)
CPT/HCPCS: 77063; 77067

== ENCOUNTER 2024-08-01 10:35 | Outpatient (CLI) | payer OTHER, SELFPAY ==
[2024-08-01 11:27] LABS: Basophils # 0.1 K/mm3 (0-0.2); Basophils % 0.8 % (0.1-2.0); Eosinophils # 0.3 K/mm3 (0.0-0.4); Eosinophils % 4.1 % (0.1-12.0); Hematocrit 41.2 % (37.0-47.0); Hemoglobin 13.5 g/dL (12.2-16.2); Lymphocytes # 1.5 K/mm3 (0.7-4.5); Mean Corpuscular HGB Conc 32.8 g/dL (31.8-35.4); Mean Corpuscular Hemoglobin 29.8 pg (27.0-31.2); Mean Corpuscular Volume 90.9 fl (81-99); Mean Platelet Volume 11.8 fl (7.4-10.4); Monocytes # 0.8 K/mm3 (0.1-1.0); Monocytes % 11.9 % (1.7-9.3); Neutrophils # 3.8 K/mm3 (1.8-7.8); Neutrophils % 58.9 % (37.0-80.0); Platelet Count 153 K/mm3 (142-424); Red Blood Count 4.53 M/mm3 (4.20-5.40); Red Cell Distribution Width 14.1 % (11.5-17.5); White Blood Count 6.4 K/mm3 (4.8-10.8)
[2024-08-01 11:45] LABS: Chol/HDL Ratio 2.8 (1-3.5); Cholesterol 108 mg/dl (140-200); HDL Cholesterol 38 mg/dl (40-60); Triglycerides 93 mg/dl (30-150); VLDL Cholesterol 19 mg/dL (0-40)
[2024-08-01 11:55] LABS: Direct LDL Cholesterol 52.45 mg/dL (100-129)
[2024-08-01 12:12] LABS: Amphetamine/Metha Screen,Urine Negative ng/ml (<1000); Barbiturates Screen,Urine Negative ng/ml (<200)
[2024-08-01 12:13] LABS: Benzodiazepines Screen,Urine Negative ng/ml (<200)
[2024-08-01 12:14] LABS: Cannabinoid Screen,Urine Negative ng/ml (<50)
[2024-08-01 12:16] LABS: Cocaine Screen,Urine Negative ng/ml (<300)
[2024-08-01 12:17] LABS: Methadone Screen,Urine Negative ng/ml (<300); Opiate Screen,Urine Negative ng/ml (<300)
[2024-08-01 12:18] LABS: Phencyclidine Screen,Urine Negative ng/ml (<25)
[2024-08-01 12:22] LABS: Hemoglobin A1C 5.5 % (4.0-6.0)
[2024-08-01 12:23] LABS: Creatinine,Urine Random 90 mg/dL (Not Estab.); Microalbumin/Creatinine Ratio 17.2
== END 2024-08-01 23:59 | disposition home or self-care (01) ==
LOC: LAB 10:36
PROVIDERS: PCP Internal Medicine Adolescent Medicine; Visit Provider Internal Medicine Adolescent Medicine
DX: E11.40 Type 2 diabetes mellitus with diabetic neuropathy, unspecified (principal); E11.22 Type 2 diabetes mellitus with diabetic chronic kidney disease; N18.32 Chronic kidney disease, stage 3b; I25.10 Atherosclerotic heart disease of native coronary artery without angina pectoris; Z79.899 Other long term (current) drug therapy
CPT/HCPCS: 36415; 80061; 80307; 82043; 82570; 83036; 85025

== ENCOUNTER 2024-08-10 11:21 | Outpatient (CLI) | payer OTHER, SELFPAY ==
--- NOTE | 2024-08-10 11:25 | US_ITS ---
PROCEDURE: US TRANSVAGINAL CLINICAL INDICATION: POST MENSTRUAL BLEEDING COMPARISON: CT CT ABDOMEN PELVIS W CON from 09/17/2023 FINDINGS: Transvaginal sonographic images of the pelvis were obtained. UTERUS: 7.2cm x 5cmx 4.2cm retroverted with a combined endometrial thickness of 8.1mm. There is fluid within the endometrial canal, likely blood. We can see movement of this debris-filled fluid on the ultrasound. The endometrium is thickened at the fundus. There is a cyst nabothian cyst in the cervix measuring 0.8 cm. There is prominent uterine vascularity in the left and right adnexae. Consider pelvic congestion. LEFT OVARY: 1.0cmx2.3cmx2.4cm with a volume of 3ml. RIGHT OVARY: 3.4cmx 2.5cmx2.0cm with a volume of 8.9ml. There is a small simple cyst measuring 1.7 cm x 1.3 cm x 1.9 cm within the right ovary. Both ovaries are seen and appear normal. Doppler flow to both ovaries are seen. There is moderate in the cul-de-sac. There are filmy, movable septations within the fluid. The fluid has a granular appearance in places and may be retro flow of blood. IMPRESSION: 1. Retroverted uterus normal in shape and size. The endometrium is thickened at the fundus measuring 8.1 mm. There is debris-filled fluid within the endometrial canal that is likely blood. Suggest endometrial sampling. 2. There is prominent vascularity on both the left and right side of the uterus consistent with pelvic congestion/varicosities. 3. The right ovary is seen and appears normal it has a 1.9 cm simple appearing cyst in the right ovary. 4. There is moderate fluid in the cul-de-sac with filmy movable septations within the fluid. Fluid also has a granular appearance and could represent blood. Dictated by: Marbin Reese MD 08/10/2024 15:03 Marbin Reese MD in OV 08/10/2024 15:03
== END 2024-08-10 23:59 | disposition home or self-care (01) ==
LOC: RAD 11:22
PROVIDERS: PCP Internal Medicine Adolescent Medicine; Visit Provider Internal Medicine Adolescent Medicine
DX: N95.0 Postmenopausal bleeding (principal)
CPT/HCPCS: 76830

== ENCOUNTER 2024-08-31 11:18 | Outpatient (CLI) | payer OTHER, SELFPAY ==
[2024-08-31 11:54] LABS: Basophils % 0.6 % (0.1-2.0); Eosinophils # 0.2 K/mm3 (0.0-0.4); Eosinophils % 3.2 % (0.1-12.0); Hematocrit 40.5 % (37.0-47.0); Hemoglobin 13.7 g/dL (12.2-16.2); Lymphocytes # 1.3 K/mm3 (0.7-4.5); Lymphocytes % 19.2 % (10-50); Mean Corpuscular HGB Conc 33.8 g/dL (31.8-35.4); Mean Corpuscular Hemoglobin 30.4 pg (27.0-31.2); Mean Platelet Volume 11.4 fl (7.4-10.4); Monocytes # 0.7 K/mm3 (0.1-1.0); Monocytes % 10.6 % (1.7-9.3); Neutrophils # 4.5 K/mm3 (1.8-7.8); Neutrophils % 66.1 % (37.0-80.0); Platelet Count 166 K/mm3 (142-424); Red Cell Distribution Width 13.9 % (11.5-17.5); White Blood Count 6.9 K/mm3 (4.8-10.8)
[2024-08-31 12:17] LABS: Albumin Level 3.9 g/dl (3.5-5.0); Chloride 105 mmol/L (98-107)
[2024-08-31 12:18] LABS: Potassium 3.8 mmoL/L (3.5-5.1); Sodium 140 mmol/L (136-145)
[2024-08-31 12:20] LABS: Alanine Aminotransferase 30 U/L (12-78); Anion Gap 12.8 mEq/L (5-15); Aspartate Amino Transferase 48 U/L (14-36); Blood Urea Nitrogen 21 mg/dl (7-17); Carbon Dioxide 26 mmol/L (22.0-30.0); Estimated Glomerular Filt Rate 37 ml/min (>60); GFR (African American) 44 ML/MIN (>60)
[2024-08-31 12:21] LABS: Albumin/Globulin Ratio 1.6 (1.1-1.8); Alkaline Phosphatase 139 U/L (38-126); Bilirubin,Total 0.8 mg/dl (0.2-1.3); Calcium 9.2 mg/dl (8.4-10.2); Globulin 2.4 g/dL (1.3-3.2); Glucose 90 mg/dl (74-100); Total Protein,Serum 6.3 g/dl (6.3-8.2)
== END 2024-08-31 23:59 | disposition home or self-care (01) ==
LOC: PREOP 11:19
PROVIDERS: PCP Internal Medicine Adolescent Medicine; Visit Provider Nurse Practitioner Obstetrics & Gynecology
DX: R93.89 Abnormal findings on diagnostic imaging of other specified body structures (principal)
CPT/HCPCS: 80053; 85025

== ENCOUNTER 2024-09-07 05:58 | Day surgery (SDC) | payer MEDICARE, OTHER, SELFPAY ==
[2024-08-31 11:52] VITALS: BMI 26.3
[2024-09-07] VITALS (10 sets, daily range): BP systolic 118–165; BP diastolic 64–84; PULSE 66–82; RESP 10–18; TEMP 36.6–36.8; O2SAT 93–99
[2024-09-07 06:27] LABS: POC Glucose,Bedside 93 (70-110)
--- NOTE | 2024-09-07 06:57 | EXP.ANES.CKL ---
[facility] Disclaimer: The information contained in this section may have been updated after the patient was seen, as this information can be updated by other users. Medical History Anxiety Sinus drainage Hypotension History of breast cancer in female Diabetes mellitus Hearing impaired Non-ST elevation MO (NSTEMI) Influenza A Hypothyroidism Hypertensive urgency Influenza A NSTEMI (non-ST elevated myocardial infarction) Bronchitis Sinusitis Laryngitis Other specified symptoms and signs involving the circulatory and respiratory systems Small vessel arterial disease due to type 2 diabetes mellitus Subungual hematoma of toe of right foot Right second toe ulcer Diabetes mellitus with diabetic neuropathy Acute hyperglycemia Vertigo Breast cancer Osteoarthritis of feet, bilateral Acquired hallux valgus of both feet Acquired hammer toes of both feet Onychogryphosis Onychodystrophy Pre-ulcerative calluses Degenerative disc disease, cervical Surgical History History of lumpectomy History of tubal ligation History of coronary artery stent placement History of cataract surgery History of colonoscopy History of breast biopsy Family History Other Family history of cancer Family history of heart disease Social History Smoking Status: Never smoker second hand exposure: No alcohol intake: never counseling provided: none substance use type: denies use current occupational status: retired Travel in the last 8 weeks: None household members: spouse housing: house current occupational exposures/hazards: No caffeine: Yes Have you lived/traveled outside [place] in past 30 days?: No Contact w/someone who lives/traveled outside US past 30 days?: No Exposure to someone with infectious disease in past 14 days?: No Do you have a fever (greater than 100.4 F or 38 C)?: No Have you tested positive for COVID-19: No Exposed to someone with COVID-19 in past 14 days?: No Do you have a sore throat?: No Do you have a cough?: No Do you have any weakness?: No Do you have any diarrhea?: No Are you experiencing any unusual bleeding?: No Do you have any muscle aches/pain?: No Do you have any abdominal pain?: No Are you experiencing loss of taste or smell?: No [facility] Anesthesia Checklist Patient Identification Patient Identification: Arm Band and Family Structural Data Admitted From: Home Planned Operative Procedure/s: Hysteroscpy, D & C, Myosure Consent for Planned Operative Procedure(s) Verified: Yes Verified Documents: Surgical Consent NPO Status Verified Time NPO: 00:00 Additional verifications Patient : No Anesthesia Reactions: No Hx Blood Transfusions: No Blood Transfusion Reaction: No Cephalosporin Allergy: No Previous Colonoscopy: Yes Airway Assessment Mallampati Score:: Class II C-Spine Mobility Assessed: Yes TMJ Mobility Assessed: Yes Dentition: Good Dentition Neurological Assessment Level of Consciousness: Awake, Alert, Appropriate and Follows Commands Hx Seizures: No Numbness or tingling in extremities: No Anesthesia Plan Anesthesia Risk discussed: Yes ASA Class: III Anesthesia Type: General Preoperative Comments Pre-Operative Comments: Cardiac stents 2023. DM glucose 93. PONV. Hard of hearing. Cr 1.40.
[2024-09-07] MEDS: CEFAZOLIN SODIUM 2 GM in 0.9 % SODIUM CHLORIDE 100 ML IV (07:27)
[2024-09-07] MEDS: ROPIVACAINE 0.5% 30ML VIAL 150 MG (07:44)
[2024-09-07] MEDS: SODIUM CHLORIDE IRRIG SOLUTION 3,000 ML 200 ML IR (07:45)
--- NOTE | 2024-09-07 07:58 | P.OP_ITS ---
Date of procedure: 09/07/24 Pre-op Diagnosis:: Postmenopausal bleeding Post-op Diagnosis:: Postmenopausal bleeding, endometritis Procedure performed:: Hysteroscopy, dilation and curettage Surgeon:: Marbin Reese MD EMERGENCY PLANNING AND RESPONSE MANAGER:: Jerry Gibson Anesthesia: LMA Estimated blood loss (mL): 25 Clinical Note:: She is a 73-year-old lady who had postmenopausal bleeding. An ultrasound showed tissue within the endometrial cavity and possible polyp at the fundus of the uterus. As result of that she was offered hysteroscopy, MyoSure and D&C. The risk and benefits of surgery discussed the patient prior to surgery. Operative findings:: She had a retroverted small uterus. The endometrial cavity was significantly erythematous possibly consistent with endometritis. The endometrium itself was extremely thin. There were no polyps and no evidence of any abnormalities within the endometrial cavity. Operative note:: She was taken the operating room where LMA anesthesia was found be adequate. She is prepped and draped in normal sterile fashion in the lithotomy position. A weighted speculum is placed in vagina and the anterior lip of the cervix was grasped with a tenaculum. Cortez dilators used to dilate the cervix up to approximately 6 mm. A MyoSure hysteroscope was then inserted into the uterine cavity and the findings were as previously dictated. Since there were no polyps or thickening of the endometrium I elected to perform a gentle curettage. Using a small curette I curettaged the entire endometrial cavity. The samples were sent to pathology and there was minimal samples available since the lining was so thin. I then injected 10 cc of 0.25% ropivacaine at the 5:00 and 7:00 positions of the cervix. She tolerated procedure well and was taken to the recovery room in stable condition. All sponge, instrument counts were correct. Estimated blood loss was less than 25 cc. Condition: stable Disposition: PACU Specimens:: Endometrial curettings Complications:: None
--- NOTE | 2024-09-07 08:02 | P.PNANES_ITS ---
[facility] Anesthesia Record Part I Anesthesia Record I Intake, IV Amount: 400 Hydration: Adequate Estimated blood loss (mL): 10 Urine output (mL): 75 Blood Products used (#): none Blood Pressure: 118/64 SaO2: 99 Pulse Rate: 66 Airway Patency: Patent Respiratory Rate: 10 Temperature: 98.3 F Patient is:: Drowsy and Stable Stable to PACU at:: 07:57
--- NOTE | 2024-09-07 13:32 | P.PNANES_ITS ---
[facility] Anesthesia Record Part II Anesthesia Record Part II Discharge Time: 08:30 Destination: Surgical Day Care (OP Surgery) PACU nurse assessment reviewed?: Yes Patient Condition:: Good Anesthesia Complications:: None Swallowing reflex intact?: Yes Airway Patency: Patent Cyanosis?: No Blood Pressure: 158/81 SaO2: 97 Respiratory Rate: 16 Pulse Rate: 69 Temperature: 98.3 F Mental Status: Alert & Oriented Pain level:: 0 Nausea and/or vomitting:: None Intake, IV Amount: 0 Hydration: Adequate
== END 2024-09-07 09:01 | disposition home or self-care (01) ==
PROVIDERS: PCP Internal Medicine Adolescent Medicine; Visit Provider Nurse Practitioner Obstetrics & Gynecology
PROC: 0UDB8ZZ Extraction of Endometrium, Via Natural or Artificial Opening Endoscopic (ICD-10-PCS; CPT 58558; principal; 2024-09-07 07:30)
DX: N71.9 Inflammatory disease of uterus, unspecified (principal); N93.8 Other specified abnormal uterine and vaginal bleeding; E11.40 Type 2 diabetes mellitus with diabetic neuropathy, unspecified; Z79.85 Long-term (current) use of injectable non-insulin antidiabetic drugs
CPT/HCPCS: 58558; 82962; J0690; J1100; J2250; J2405; J3010

== ENCOUNTER 2024-10-03 11:11 | Emergency (ER) | payer MEDICARE, OTHER, SELFPAY ==
[2024-10-03 11:20] VITALS: BP 116/81; PULSE 71; O2SAT 96
--- NOTE | 2024-10-03 11:22 | CT_ITS ---
FINAL REPORT TECHNIQUE: Thin section axial images were obtained through the thoracic spine without contrast. Sagittal and coronal images were obtained from the axial data. This study was performed with techniques to keep radiation doses as low as reasonably achievable, (ALARA). Individualized dose reduction techniques using automated exposure control or adjustment of mA and/or kV according to the patient's size were employed. CLINICAL HISTORY: fall back pain COMPARISON: 04/28/2018 FINDINGS: There is no acute fracture of the cervical spine. Anterolisthesis of C3 on C4 and C4 on C5 is favored to be degenerative.. There is no facet lock. Craniocervical junction is intact. Multilevel degenerative disc disease is similar to the previous study. No acute paraspinal abnormality is identified. IMPRESSION: No acute fracture. Degenerative disc disease similar to the prior study. Reviewed, Interpreted and Dictated by Ashtyn Austin MD Transcribed by Christine Edward Authenticated and [facility]
--- NOTE | 2024-10-03 11:22 | CT_ITS ---
FINAL REPORT TECHNIQUE: Thin section axial images were obtained through the thoracic spine without contrast. Sagittal and coronal images were obtained from the axial data. CLINICAL HISTORY: fall back pain COMPARISON: CTA chest 05/30/2023 FINDINGS: There is no acute fracture of the thoracic spine. There is no malalignment. Vertebral body heights are preserved. There is multilevel degenerative disc disease which is similar to the previous study.. No acute paraspinal abnormality is identified. IMPRESSION: No acute osseous abnormality of the thoracic spine. Degenerative disc disease. Reviewed, Interpreted and Dictated by Ashtyn Austin MD Transcribed by Christine Edward Authenticated and [facility]
--- NOTE | 2024-10-03 11:22 | XR_ITS ---
FINAL REPORT CLINICAL HISTORY: right knee pain fall FINDINGS: AP, lateral and oblique views of the right knee were obtained. There is no prior exam for comparison. There is no acute osseous abnormality of the right knee. Degenerative joint disease is noted. The soft tissues are normal. There is a small joint effusion. IMPRESSION: No acute osseous abnormality of the right knee. Small joint effusion and degenerative changes. Reviewed, Interpreted and Dictated by Ashtyn Austin MD Transcribed by Christine Edward Authenticated and [facility]
--- NOTE | 2024-10-03 11:22 | CT_ITS ---
FINAL REPORT TECHNIQUE: Axial images through the pelvis were performed by computed tomography. Sagittal and coronal reconstruction images were performed. This study was performed with techniques to keep radiation doses as low as reasonably achievable (ALARA). Individualized dose reduction techniques using automated exposure control or adjustment of mA and/or kV according to the patient's size were employed. CLINICAL HISTORY: back pain fall COMPARISON: CT abdomen and pelvis 09/17/2023 FINDINGS: No fracture of the pelvis or either hip is identified. No dislocation identified. Degenerative joint disease of the sacroiliac joints and bilateral hips is unchanged. No soft tissue abnormality. IMPRESSION: No pelvic fracture. Degenerative joint disease. Reviewed, Interpreted and Dictated by Ashtyn Austin MD Transcribed by Christine Edward Authenticated and [facility]
--- NOTE | 2024-10-03 11:22 | CT_ITS ---
FINAL REPORT TECHNIQUE: Thin section axial images were obtained through the lumbar spine without contrast. Sagittal and coronal reconstruction images were obtained from the axial data. Exam was performed using dose reduction techniques. CLINICAL HISTORY: fall back pain COMPARISON: CT abdomen and pelvis 09/17/2023 FINDINGS: There is no acute fracture or acute malalignment of the lumbar spine. Vertebral body height is preserved. Grade 1 anterior spondylolisthesis of L4 on L5 and L5 on S1 is unchanged. There is multilevel degenerative disc disease which appears similar to the prior study. There is no significant central stenosis. Paraspinal soft tissues are within normal limits. There is no paraspinal mass or fluid collection. Gallstones are noted in the gallbladder. IMPRESSION: No acute abnormality of the lumbar spine. Degenerative disc disease and chronic findings. Reviewed, Interpreted and Dictated by Ashtyn Austin MD Transcribed by Christine Edward Authenticated and . [facility]
--- NOTE | 2024-10-03 11:22 | XR_ITS ---
FINAL REPORT CLINICAL HISTORY: Right femur pain FINDINGS: Two views of the right femur were obtained. There is no acute fracture or dislocation. There is degenerative disease of the hip and knee. There is no acute soft tissue abnormality. IMPRESSION: No acute abnormality identified. Reviewed, Interpreted and Dictated by Ashtyn Austin MD Transcribed by Christine Edward Authenticated and . [facility]
--- NOTE | 2024-10-03 11:22 | CT_ITS ---
FINAL REPORT TECHNIQUE: Thin section axial images were obtained from skull base to vertex without contrast. Coronal reconstruction images were obtained from the axial data. Exam was performed using dose reduction techniques such as automated exposure control, adjustment of the mA and kV according to patient size, and use of iterative reconstruction technique. CLINICAL HISTORY: fall hit head on BT COMPARISON: 03/27/2022 FINDINGS: There is no mass effect or midline shift. There is no hydrocephalus. There is no intracranial hemorrhage. Age-appropriate atrophy is noted. The posterior fossa is without acute abnormality. The basilar cisterns are preserved. The soft tissues are without acute abnormality. No acute osseous abnormality is identified. IMPRESSION: No acute intracranial abnormality. Stable chronic findings. Reviewed, Interpreted and Dictated by Ashtyn Austin MD Transcribed by Christine Edward Authenticated and [facility]
--- NOTE | 2024-10-03 11:26 | CT_ITS ---
FINAL REPORT TECHNIQUE: Thin section axial images were obtained through the right hip without contrast. Reconstruction images were obtained from the axial data. Exam was performed using dose reduction technique. CLINICAL HISTORY: fall pain COMPARISON: None FINDINGS: There is no acute fracture or dislocation. No acute osseous abnormality is identified. Degenerative joint disease is noted. There is no CT evidence of avascular necrosis. Chondrocalcinosis is present. No acute soft tissue abnormality is identified. IMPRESSION: No acute osseous abnormality of the right hip. No acute soft tissue abnormality. Reviewed, Interpreted and Dictated by Ashtyn Austin MD Transcribed by Christine Edward Authenticated and [facility]
[2024-10-03 11:28] VITALS: BP 116/81; PULSE 72; RESP 17; TEMP 36.6; O2SAT 95; BMI 26.8
[2024-10-03 11:46] LABS: Basophils # 0.1 K/mm3 (0-0.2); Basophils % 0.7 % (0.1-2.0); Eosinophils # 0.2 Kmm3 (0.0-0.4); Eosinophils % 2.8 % (0.1-12.0); Hematocrit 40.4 % (37.0-47.0); Hemoglobin 13.5 g/dL (12.2-16.2); Lymphocytes # 1.6 K/mm3 (0.7-4.5); Lymphocytes % 21.8 % (10-50); Mean Corpuscular HGB Conc 33.4 g/dL (31.8-35.4); Mean Corpuscular Hemoglobin 30.7 pg (27.0-31.2); Mean Corpuscular Volume 91.8 fl (81-99); Mean Platelet Volume 11.6 fl (7.4-10.4); Monocytes # 0.8 K/mm3 (0.1-1.0); Monocytes % 10.4 % (1.7-9.3); Neutrophils # 4.6 K/mm3 (1.8-7.8); Nucleated Red Blood Cells # 0 10^3/uL; Nucleated Red Blood Cells % 0 %; Platelet Count 181 K/mm3 (142-424); Red Cell Distribution Width 14.4 % (11.5-17.5); Red Cell Distribution Width-SD 48.5 fL; White Blood Count 7.2 K/mm3 (4.8-10.8)
[2024-10-03] MEDS: METHOCARBAMOL 500MG TABLET 500 MG PO (11:46)
[2024-10-03] MEDS: LIDOCAINE 5% TRANSDERMAL PATCH 1 EACH TD (11:46)
[2024-10-03] MEDS: ACETAMINOPHEN 500MG TAB 1000 MG PO (11:47)
[2024-10-03 11:52] LABS: Albumin Level 4.1 g/dl (3.5-5.0); Chloride 109 mmol/L (98-107); Sodium 140 mmol/L (136-145)
[2024-10-03 11:55] LABS: Alanine Aminotransferase 27 U/L (12-78); Albumin/Globulin Ratio 1.8 (1.1-1.8); Alkaline Phosphatase 129 U/L (38-126); Aspartate Amino Transferase 42 U/L (14-36); Bilirubin,Total 0.7 mg/dl (0.2-1.3); Blood Urea Nitrogen 27 mg/dl (7-17); Carbon Dioxide 25 mmol/L (22.0-30.0); Creatinine Clearance Estimated 39 mL/min (50-200); Estimated Glomerular Filt Rate 34 ml/min (>60); GFR (African American) 41 ML/MIN (>60); Globulin 2.3 g/dL (1.3-3.2); Total Protein,Serum 6.4 g/dl (6.3-8.2)
[2024-10-03 11:56] LABS: Calcium 9.5 mg/dl (8.4-10.2); Glucose 94 mg/dl (74-100)
[2024-10-03 12:03] LABS: Activated Partial Thrombo Time 27.8 seconds (22.8-30.6); Prothrombin Time 11.2 seconds (10.1-12.5)
[2024-10-03 12:31] VITALS: BP 177/87; PULSE 64; O2SAT 98
[2024-10-03 13:01] VITALS: BP 154/70; PULSE 57; O2SAT 97
[2024-10-03 13:31] VITALS: BP 158/77; PULSE 63; O2SAT 97
--- NOTE | 2024-10-03 13:31 | ED_ITS ---
<Statement entered by Norah Cartagena MD - 10/03/24 15:20> I was consulted by the ELIE, and we discussed the complexity of problems being addressed. I approved the treatment and management plan for this patient's care in the emergency department, thus performing a substantive portion of the medical decision making. Norah Cartagena MD Discharge Plan Disposition Patient Disposition: Home, Self-Care Prescriptions Prescriptions: New methocarbamol 750 mg tablet 750 mg PO QID 7 Days Qty: 28 0RF lidocaine [Lidoderm] 5 % adhesive patch,medicated 1 patch topical DAILY Qty: 15 0RF Rx Instructions: leave on most painful area for up to 12 hrs No Action levothyroxine 112 mcg tablet 112 mcg PO DAILYDM Patient Comments: TAKE 1 TABLET BY MOUTH EVERY DAY FOR 90 DAYS Zyrtec 10 mg capsule 10 mg PO DAILY Qty: 30 3RF Ozempic 2 mg/dose (8 mg/3 mL) pen injector 2 mg SQ WEEKLY Qty: 3 2RF losartan-hydrochlorothiazide 50-12.5 mg tablet PO fluticasone propionate [Flonase Allergy Relief] 50 mcg/actuation spray,suspension 1 spray intranasal DAILY Qty: 16 2RF Rx Instructions: administer into each nostril clopidogrel 75 mg tablet 75 mg PO DAILY 30 Days Qty: 90 4RF losartan-hydrochlorothiazide 100-25 mg tablet See Rx Instructions .ROUTE .COMPLEX Qty: 90 3RF Dose Instruction: TAKE 1 TABLET BY MOUTH EVERY DAY Rx Instructions: TAKE 1 TABLET BY MOUTH EVERY DAY atorvastatin 40 mg tablet See Rx Instructions .ROUTE .COMPLEX Qty: 90 7RF Dose Instruction: TAKE 1 TABLET BY MOUTH EVERY DAY NIGHTLY Rx Instructions: TAKE 1 TABLET BY MOUTH EVERY DAY NIGHTLY bisoprolol fumarate 5 mg tablet See Rx Instructions .ROUTE .COMPLEX Qty: 90 3RF Dose Instruction: TAKE 1 TABLET BY MOUTH EVERY DAY Rx Instructions: TAKE 1 TABLET BY MOUTH EVERY DAY ondansetron 4 mg tablet,disintegrating 4 mg PO Q6H PRN (Reason: nausea and vomiting) 5 Days Qty: 20 0RF hydroxyzine pamoate [Vistaril] 25 mg capsule 25 mg PO TIDP PRN (Reason: Itching) Patient Comments: TAKE 1 CAPSULE BY MOUTH THREE TIMES A DAY NEEDED FOR ITCHING FOR 14 DAYS aspirin 81 mg Tablet,Delayed Release (Dr/Ec) 81 mg PO DAILY 30 Days Qty: 30 0RF Referrals Follow up/Referrals: Krishan Caldwell MD [Primary Care Provider] - See instructions Activity Restrictions/Add. Instructions Additional Instructions/Restrictions: Today you were evaluated in the emergency department and had trauma scans. Your scans are unremarkable, you have a small amount of fluid around your right knee which we placed Quinn wrap on. This will give you some extra stability of your right knee. I would suggest that you follow-up with Ortho due to concerns of your knee buckling. Please follow-up with your PCP tomorrow. Please return to the ED for any worsening of your condition. Take your medication as directed. Clinical Impressions Clinical Impression: Fall Qualifiers: Encounter type: initial encounter Qualified Code(s): W19.XXXA - Unspecified fall, initial encounter Back pain Qualifiers: Back pain location: low back pain Chronicity: acute Back pain laterality: right Sciatica presence: without sciatica Qualified Code(s): M54.50 - Low back pain, unspecified Instructions Patient Instructions: DI for Low Back Pain Print Language Print Language: Burkinan Discharge ED Provider: Norah aCrtagena General Adult HPI General Chief complaint: Back Pain/Injury Stated complaint: AO 09/22/2024 R hip pain Time Seen by Provider: 10/03/24 11:15 Mode of Arrival: Ambulatory Description of Symptoms (Recalled from ER Triage Doc. by RN): pt to the ED with thoracic and lumbar pain that radiates into her right hip. pt reports she fell backwards out of a chair 2 weeks ago and the pain has since worsened.pt remembers the event and denies any LOC. pt is on plavix History of Present Illness HPI narrative: Patient is a 73-year-old female PMHx HTN, HLD, CAD, anxiety who presents to the ED after a fall that occurred 2 weeks ago. Patient states that she has had frequent falls in the past, stating that her right knee at times renée causing her to fall. Patient states that she did hit her head however did not lose consciousness. Related Data Home Medications ?Medication ?Instructions ?Recorded ?Confirmed levothyroxine 112 mcg tablet 112 mcg PO DAILYDM 01/13/22 09/26/24 hydroxyzine pamoate 25 mg capsule 25 mg PO TIDP PRN Itching 05/30/23 09/26/24 (Vistaril) losartan 50 mg-hydrochlorothiazide tab PO 09/26/24 09/26/24 12.5 mg tablet Previous Rx's ?Medication ?Instructions ?Recorded aspirin 81 mg tablet,delayed 81 mg PO DAILY 30 days #30 tabs 06/05/23 release ondansetron 4 mg disintegrating 4 mg PO Q6H PRN nausea and 09/17/23 tablet vomiting 5 days #20 tabs cetirizine 10 mg capsule (Zyrtec) 10 mg PO DAILY #30 caps 04/26/24 fluticasone propionate 50 1 spray intranasal DAILY #16 grams 05/19/24 mcg/actuation nasal spray,suspension (Flonase Allergy Relief) clopidogrel 75 mg tablet 75 mg PO DAILY 30 days #90 tabs 07/04/24 semaglutide 2 mg/dose (8 mg/3 mL) 2 mg (0.75 mL) SQ WEEKLY #3 mL 08/22/24 subcutaneous pen injector (Ozempic) atorvastatin 40 mg tablet See Rx Instructions .Route 09/26/24 .COMPLEX #90 tabs bisoprolol fumarate 5 mg tablet See Rx Instructions .Route 09/26/24 .COMPLEX #90 tabs losartan 100 See Rx Instructions .Route 09/26/24 mg-hydrochlorothiazide 25 mg tablet .COMPLEX #90 tabs lidocaine 5 % topical patch 1 patch topical DAILY #15 ea 10/03/24 (Lidoderm) methocarbamol 750 mg tablet 750 mg PO QID 7 days #28 tabs 10/03/24 Allergies Allergy/AdvReac Type Severity Reaction Status Date / Time niacin (NIACIN) Allergy Intermediate I-RASH Verified 09/26/24 14:07 [facility] Disclaimer: The information contained in this section may have been updated after the patient was seen, as this information can be updated by other users. Medical History Anxiety Sinus drainage Hypotension History of breast cancer in female Diabetes mellitus Hearing impaired Non-ST elevation ID (NSTEMI) Influenza A Hypothyroidism Hypertensive urgency Influenza A NSTEMI (non-ST elevated myocardial infarction) Bronchitis Sinusitis Laryngitis Other specified symptoms and signs involving the circulatory and respiratory systems Small vessel arterial disease due to type 2 diabetes mellitus Subungual hematoma of toe of right foot Right second toe ulcer Diabetes mellitus with diabetic neuropathy Acute hyperglycemia Vertigo Breast cancer Osteoarthritis of feet, bilateral Acquired hallux valgus of both feet Acquired hammer toes of both feet Onychogryphosis Onychodystrophy Pre-ulcerative calluses Degenerative disc disease, cervical Surgical History History of lumpectomy History of tubal ligation History of coronary artery stent placement History of cataract surgery History of colonoscopy History of breast biopsy Family History Other Family history of cancer Family history of heart disease Social History Smoking Status: Former smoker second hand exposure: No alcohol intake: never counseling provided: none substance use type: denies use current occupational status: retired Travel in the last 8 weeks?: None household members: spouse housing: house current occupational exposures/hazards: No caffeine: Yes Have you lived/traveled outside [place] in past 30 days?: No Contact w/someone who lives/traveled outside [place] past 30 days?: No Exposure to someone with infectious disease in past 14 days?: No Do you have a fever (greater than 100.4 F or 38 C)?: No Have you tested positive for COVID-19?: No Exposed to someone with COVID-19 in past 14 days?: No Do you have a sore throat?: No Do you have a cough?: No Do you have any weakness?: No Do you have any diarrhea?: No Are you experiencing any unusual bleeding?: No Do you have any muscle aches/pain?: No Do you have any abdominal pain?: No Are you experiencing loss of taste or smell?: No Other Medical History Have you received the Flu Vaccine for this season: No Have you received the Pneumonia Vaccine: Yes ROS Obtained: Yes Systems reviewed as appropriate & no additional complaints except as documented Physical Exam General General appearance: alert and in no apparent distress Head Head exam: atraumatic Eye Eye exam: Present normal appearance and PERRL; Absent nystagmus ENT ENT exam: Present normal exam Neck Neck exam: Present full ROM and tenderness Chest Chest inspection: Present normal inspection Respiratory Respiratory exam: Present normal lung sounds bilaterally Cardiovascular Cardiovascular exam: Present regular rate Abdominal Exam Abdominal exam: Present soft; Absent tenderness Extremities Exam Extremities exam: Present normal inspection and full ROM Back Exam Back exam: Present normal inspection Neurological Exam Neurological exam: Present alert and oriented X3 Psychiatric Psychiatric exam: Present normal affect Skin Skin exam: Present warm and dry Medical Decision Making Medical Records Screening: Per USPSTF and CDC recommendations, given the prevalence of disease in our region, it is our hospital?s policy to screen for HIV and viral Hepatitis for all patients aged 18 and over and those with ongoing risk factors. [place]is Inquiry Pt receiving controlled substance: No Vital Signs: 10/03/24 11:20 10/03/24 11:28 10/03/24 12:31 Temperature 97.8 F Temperature Source Oral Pulse Rate 71 64 Pulse Rate [Left Radial] 72 Respiratory Rate 17 Blood Pressure 116/81 177/87 H Blood Pressure [Right Arm] 116/81 Blood Pressure Mean [Right Arm] 92 Blood Pressure Source Blood Pressure Source [Right Arm] Automatic Cuff Blood Pressure Position Blood Pressure Position [Right Arm] Sitting 02 Sat by Pulse Oximetry 96 95 98 Oxygen Delivery Method Room Air 10/03/24 13:01 10/03/24 13:31 10/03/24 14:44 Temperature 98.3 F Temperature Source Oral Pulse Rate 57 L 63 78 Pulse Rate [Left Radial] Respiratory Rate 18 Blood Pressure 154/70 H 158/77 H 132/78 Blood Pressure [Right Arm] Blood Pressure Mean [Right Arm] Blood Pressure Source Automatic Cuff Blood Pressure Source [Right Arm] Blood Pressure Position Sitting Blood Pressure Position [Right Arm] 02 Sat by Pulse Oximetry 97 97 Oxygen Delivery Method Room Air Lab Data Lab Results 10/03/24 11:39: WBC 7.2, RBC 4.40, Hgb 13.5, Hct 40.4, MCV 91.8, MCH 30.7, MCHC 33.4, RDW 14.4, Plt Count 181, MPV 11.6 H, Neut % (Auto) 64.0, Lymph % (Auto) 21.8, Simpson % (Auto) 10.4 H, Eos % (Auto) 2.8, Baso % (Auto) 0.7, Neut # (Auto) 4.6, Lymph # (Auto) 1.6, Simpson # (Auto) 0.8, Eos # (Auto) 0.2, Baso # (Auto) 0.1, PT 11.2, INR 1.00, APTT 27.8, Sodium 140, Potassium 4.0, Chloride 109 H, Carbon Dioxide 25, Anion Gap 10.0, BUN 27 H, Creatinine 1.50 H, Estimated Creat Clear 39, Estimated GFR 34 L, Est GFR ( Amer) 41 L, Glucose 94, Calcium 9.5, Total Bilirubin 0.7, AST 42 H, ALT 27, Alkaline Phosphatase 129 H, Total Protein 6.4, Albumin 4.1, Globulin 2.3, Albumin/Globulin Ratio 1.8 10/03/24 13:25: Urine Color Yellow, Urine Appearance Clear, Urine pH 6.0, Ur Specific [place] 1.020, Urine Protein Negative, Urine Glucose (UA) Negative, Urine Ketones Negative, Urine Blood Negative, Urine Nitrate Positive A, Urine Bilirubin Negative, Urine Urobilinogen 1.0, Ur Leukocyte Esterase Negative, Urine RBC None, Urine WBC 3-5, Ur Squamous Epith Cells 3-5, Urine Bacteria 2+ 10/03/24 11:39 10/03/24 11:39 Orders (Tests/Meds): ED MEDICATIONS Discontinued Medications Generic Name Dose Route Start Last Admin Trade Name Freq PRN Reason Stop Dose Admin Acetaminophen 1,000 mg 10/03/24 11:22 10/03/24 11:47 Acetaminophen 500mg Tab PO 10/03/24 11:23 1,000 mg ONCE ONE Administration Ketorolac Tromethamine 15 mg 10/03/24 14:22 10/03/24 14:38 Ketorolac 30mg/Ml Vial IV 10/03/24 14:23 15 mg ONCE ONE Administration Lidocaine 1 each 10/03/24 11:22 10/03/24 11:46 Lidocaine 5% Transdermal Patch TD 10/03/24 11:23 1 each ONCE ONE Administration Methocarbamol 500 mg 10/03/24 11:30 10/03/24 11:46 Methocarbamol 500mg Tablet PO 11/02/24 11:29 500 mg BID JAMEEL Administration ORDERS Category Date Time Status CT cervical spine wo con Stat Cat Scan 10/03/24 11:[address] head/brain wo con Stat Cat Scan 10/03/24 11:[address] hip RT wo con Stat Cat Scan 10/03/24 11:[address] lumbar spine wo con Stat Cat Scan 10/03/24 11:[address] pelvis wo con Stat Cat Scan 10/03/24 11:[address] thoracic spine wo con Stat Cat Scan 10/03/24 11:22 Completed Knee XR right 3 views [XR knee RT 3V] Stat Exams 10/03/24 11:22 Completed XR femur RT 2V Stat Exams 10/03/24 11:22 Completed CBC w/Auto Diff [Complete Blood Count Auto Diff] Stat Lab 10/03/24 11:39 Completed CMP [Comprehensive Metabolic Panel] Stat Lab 10/03/24 11:39 Completed PT/PTT Stat Lab 10/03/24 11:39 Completed Urinalysis and Microscopic Stat Lab 10/03/24 13:25 Completed Urine Culture Stat Micro 10/03/24 13:25 Received Medical Decision Narrative: In summary, patient is a 73-year-old female PMHx HTN, HLD, CAD, anxiety who presents to the ED after a fall that occurred 2 weeks ago. Patient states that she has had frequent falls in the past, stating that her right knee at times renée causing her to fall. Patient states that she did hit her head however did not lose consciousness. She is on anticoagulation. She states that she is having low back pain and right knee pain. She has not been evaluated since the fall. 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 Upon initial evaluation patient is alert, oriented and cooperative. Neuro status intact. Sensation intact. No nystagmus. Pain noted in C-spine and L- spine. Full ROM of right knee. Differential diagnosis includes cervical spine fracture, L-spine fracture, malalignment, right knee dislocation, ligamentous injury, among others. Discussed with patient that we will proceed with acetaminophen and Lidoderm patch. Will obtain imaging. She is agreeable to plan of care. Final reads as follows: CT of the hip is unremarkable for any acute fracture. Pelvis CT unremarkable for any fracture, degenerative joint disease noted. L- spine unremarkable for any acute fracture, degenerative joint disease noted. Femur x-ray unremarkable for any fracture or dislocation. T-spine CT unremarkable for any osseous abnormality, degenerative disc disease. X-ray of the right knee unremarkable for any osseous abnormality, small joint effusion and degenerative disease. Head CT unremarkable for any acute intracranial abnormality. CT of the C-spine unremarkable for any acute fracture, degenerative disc disease. Upon reassessment, patient condition has improved, she states that her pain has improved after the medication. She is ambulatory in the ED. Discussed with patient that imaging is fairly unremarkable, applied Quinn wrap to right knee due to small effusion and concern for mild ligamentous injury. Discussed that she can follow-up with Ortho. Advised her to follow-up with her PCP within 24 hours. We discussed very strict return precautions to the ED and patient verbalized understanding. Discussed taking Robaxin and using Lidoderm patches with acetaminophen [id number]. She was ambulatory in the ED. Critical Care Critical Care Time Critical Care Time: No
[2024-10-03 13:36] LABS: Microscopic, Urine URINE MICROSCOPIC (MICROSCOPIC)
[2024-10-03 13:52] LABS: Appearance,Urine CLEAR (Clear); Bilirubin,Urine Negative (Negative); Blood, Urine Negative (Negative); Color,Urine YELLOW (Yellow); Glucose,Urine (UA) Negative (Negative); Ketones,Urine Negative (Negative); Leukocyte Esterase,Urine Negative (Negative); Nitrate,Urine POSITIVE (Negative); Protein,Urine Negative (Negative)
--- NOTE | 2024-10-03 13:53 | PC.NURSE ---
called yumi in RAD for prelims on pt imaging that hasnt been resulted
[2024-10-03 14:04] LABS: Bacteria,Urine 2+ /lpf
[2024-10-03] MEDS: KETOROLAC 30MG/ML VIAL 15 MG IV (14:38)
[2024-10-03 14:44] VITALS: BP 132/78; PULSE 78; RESP 18; TEMP 36.8; O2SAT 98
--- NOTE | 2024-10-04 13:26 | PC.NURSE ---
I called pt to see how she is feeling and inquire if she was having any urinary symptoms. pt denies urinary symptoms and reports she is feeling somewhat better. I consulted about her urine culture results. He states there is no change in the treatment plan as she is not symptomatic.
--- NOTE | 2024-10-07 17:33 | PC.NURSE ---
I spoke with about the pts urine culture results. He trasmitted keflex to [facility] for a UTI. I called and spoke with the pt relaying her culture results and that medication was sent. She states she will pick it up.
== END 2024-10-03 14:44 | disposition home or self-care (01) ==
PROVIDERS: Nurse Practitioner; Emergency Provider Student in an Organized Health Care Education/Training Program; PCP Internal Medicine Adolescent Medicine
DX: M54.41 Lumbago with sciatica, right side (principal); M25.551 Pain in right hip; W07.XXXA Fall from chair, initial encounter
CPT/HCPCS: 70450; 72125; 72128; 72131; 72192; 73552; 73562; 73700; 80053; 81001; 85025; 85610; 85730; 87086; 87088; 87186; 96374; 99285; J1885

== ENCOUNTER 2024-10-13 14:40 | Outpatient (CLI) | payer OTHER, SELFPAY ==
--- NOTE | 2024-10-13 15:15 | MM_ITS ---
PROCEDURE INFORMATION: Exam: MG Bilateral Screening 3D Mammography Exam date and time: 10/13/2024 2:59 PM Age: 73 years old Clinical indication: Screening exam. Personal history of right breast cancer status post lumpectomy and radiation therapy. TECHNIQUE: Imaging protocol: Bilateral Screening tomosynthesis and 2D mammography including computer-aided detection (CAD) when performed. COMPARISON: 1. MG MM DIG SCREENING MAMM BI W/CAD 07/14/2024 8:06 AM 2. MG MM DIG MAMM DX UNILAT RT CAD 03/08/2024 2:45 PM FINDINGS: MAMMOGRAPHY: Breast composition: There are scattered areas of fibroglandular density. Mass: No suspicious masses. Architectural distortion: Postsurgical changes redemonstrated right breast. Calcifications: No suspicious calcifications. Asymmetric density: None. Skin thickening: Postradiation skin thickening redemonstrated right breast. Axillary adenopathy: None. IMPRESSION: No mammographic evidence of malignancy. Annual screening is recommended unless otherwise clinically indicated. ASSESSMENT: BI-RADS Category 2: Benign.
== END 2024-10-13 23:59 | disposition home or self-care (01) ==
LOC: RAD 14:40
PROVIDERS: PCP Internal Medicine Adolescent Medicine; Visit Provider Surgery
DX: Z12.31 Encounter for screening mammogram for malignant neoplasm of breast (principal); R92.323 Mammographic fibroglandular density, bilateral breasts; Z85.3 Personal history of malignant neoplasm of breast
CPT/HCPCS: 77063; 77067

== ENCOUNTER 2024-12-07 11:42 | Outpatient (CLI) | payer OTHER, SELFPAY ==
[2024-12-07 12:13] LABS: Hematocrit 41.0 % (37.0-47.0); Hemoglobin 13.1 g/dL (12.2-16.2); Immature Granulocytes % 0.3 %; Mean Corpuscular HGB Conc 32.0 g/dL (31.8-35.4); Mean Corpuscular Hemoglobin 29.6 pg (27.0-31.2); Mean Corpuscular Volume 92.6 fl (81-99); Nucleated Red Blood Cells % 0 %; Platelet Count 143 K/mm3 (142-424); Red Blood Count 4.43 M/mm3 (4.20-5.40); Red Cell Distribution Width-SD 48.3 fL; White Blood Count 6.0 K/mm3 (4.8-10.8)
[2024-12-07 13:06] LABS: Alanine Aminotransferase 29 U/L (12-78); Albumin Level 4.1 g/dl (3.5-5.0); Alkaline Phosphatase 145 U/L (38-126); Anion Gap 14.6 mEq/L (5-15); Aspartate Amino Transferase 45 U/L (14-36); Bilirubin,Direct 0.3 mg/dl (0.0-0.4); Bilirubin,Indirect 0.7 mg/dL (0.0-0.9); Bilirubin,Total 1.0 mg/dl (0.2-1.3); Bilirubin,Unconjugated 0.7 mg/dL (0.0-1.1); Blood Urea Nitrogen 21 mg/dl (7-17); Calcium 10.0 mg/dl (8.4-10.2); Carbon Dioxide 28 mmol/L (22.0-30.0); Chloride 103 mmol/L (98-107); Cholesterol 110 mg/dl (140-200); Creatinine,Serum 1.40 mg/dl (0.52-1.04); Estimated Glomerular Filt Rate 37 ml/min (>60); GFR (African American) 44 ML/MIN (>60); Glucose 90 mg/dl (74-100); HDL Cholesterol 35 mg/dl (40-60); Magnesium 1.9 mg/dl (1.6-2.3); Potassium 4.6 mmoL/L (3.5-5.1); Sodium 141 mmol/L (136-145); Total Protein,Serum 6.2 g/dl (6.3-8.2); Triglycerides 117 mg/dl (30-150)
[2024-12-07 13:22] LABS: Free T4 (Free Thyroxine) 1.69 ng/dl (0.78-2.19)
[2024-12-07 13:36] LABS: Thyroid Stimulating Hormone < 0.02 uIU/mL (0.465-4.68)
--- NOTE | 2024-12-07 15:15 | CT_ITS ---
FINAL REPORT TECHNIQUE: NASCET technique utilized for stenosis evaluation. CLINICAL HISTORY: right sided weakness COMPARISON: None FINDINGS: Moderate vascular calcifications are noted in the aortic arch. RIGHT CAROTID: There are dense calcifications at the right carotid bifurcation producing less than 50% luminal diameter stenosis. LEFT CAROTID: There are dense calcifications involving the left carotid bifurcation, producing less than 50% luminal diameter stenosis. VERTEBRALS: The vertebrals are patent. The right vertebral artery is dominant, with a hypoplastic left vertebral artery. Note is made of moderate facet hypertrophy throughout the cervical spine. IMPRESSION: Less than 50% stenosis of the bilateral carotid bifurcations. Dominant right vertebral artery with a hypoplastic left vertebral artery. Reviewed, Interpreted and Dictated by Andi Randolph MD Transcribed by Elin Mckinney Authenticated and [facility]
--- NOTE | 2024-12-07 15:15 | CT_ITS ---
FINAL REPORT TECHNIQUE: thin section axial CT with and without IV contrast supplemented with multiplanar 3-D reconstruction of the head. This study was performed with techniques to keep radiation doses as low as reasonably achievable, (ALARA)individualized dose reduction techniques using automated exposure control or adjustment of mA and/or kV according to the patient's size were employed. CLINICAL HISTORY: right sided weakness COMPARISON: None FINDINGS: CTA INTRACRANIAL VESSELS: CTA: The cranial circulation is unremarkable. There is no significant stenosis, aneurysm or occlusion. IMPRESSION: No acute process. Reviewed, Interpreted and Dictated by Andi Randolph MD Transcribed by Elin Mckinney Authenticated and [facility]
--- NOTE | 2024-12-07 15:15 | CT_ITS ---
FINAL REPORT TECHNIQUE: multiple axial CT images were performed from the foramen magnum to the vertex without enhancement. This study was performed with techniques to keep radiation doses as low as reasonably achievable (ALARA). Individualized dose reduction techniques using automated exposure control or adjustment of mA and/or kV according to the patient's size were employed. CLINICAL HISTORY: right sided weakness COMPARISON: 10/03/2024 FINDINGS: The ventricles are mildly enlarged. There is mild diffuse atrophy. There is no evidence of hemorrhage. No masses are identified. No extra-axial fluid is seen. The sinuses are normal. IMPRESSION: Mild atrophy without acute process. Reviewed, Interpreted and Dictated by Andi Randolph MD Transcribed by Elin Mckinney Authenticated and [facility]
[2024-12-07] MEDS: SODIUM CHLORIDE 0.9% 10ML SYR (RAD ONLY) 10 ML IV (15:19)
[2024-12-07] MEDS: 0.9 % SODIUM CHLORIDE 50 ML VIAL IV (15:19)
[2024-12-07] MEDS: IOPAMIDOL-370 (76%);100ML BOTTLE 100 ML IV (15:19)
== END 2024-12-07 23:59 | disposition home or self-care (01) ==
PROVIDERS: PCP Internal Medicine Adolescent Medicine; Visit Provider Nurse Practitioner Family
DX: I65.23 Occlusion and stenosis of bilateral carotid arteries (principal); Q28.1 Other malformations of precerebral vessels; R93.6 Abnormal findings on diagnostic imaging of limbs; G31.9 Degenerative disease of nervous system, unspecified; I25.10 Atherosclerotic heart disease of native coronary artery without angina pectoris; I10 Essential (primary) hypertension; R53.1 Weakness
CPT/HCPCS: 36415; 70450; 70496; 70498; 80048; 80061; 80076; 83735; 84439; 84443; 85025; Q9967

== ENCOUNTER 2024-12-20 11:01 | Outpatient (CLI) | payer OTHER, SELFPAY ==
--- OUTSIDE RECORDS SUMMARY | 2024-09-03 17:30 | XMS_ITS ---
Author Organization [facility] Address [address] [place] [address] Care Team Providers Care Ceo & Co Founder Name Role Phone Levy Caldwellhen Primary Care Provider [phone] Migration, Provider Unavailable Unavailable Allergies Allergen (clinical drug ingredient) Drug/Non Drug Allergy documented on EMR Reaction Allergy Type Onset Date Status Niacin Unknown Drug Allergy Active [facility] Conversion Encounter Medications Medication SIG (Take, Route, [...] review and pick correct strength-formulat ion from [employer] options. If intended option is not shown, [...] Active Encounters Encounter Location Date Provider Diagnosis [facility] [address] [facility] [address] [place] [address] 09/03/2024 Provider Migration Plan Of Treatment Next Appt Details Provider Name:Krishan Prosper Paulette, 02/15/2025 09:30:00 AM, [address], [address], [place], [address], Progress Notes * Lavinia IYER ADOB:1950 (74 yo F)Acc No.[id number]:09/03/2024 Patient: Ramakrishna Lavinia RAINEY Provider: Cindy moore Migration :1950 A ge:73 Y S ex:Female Date:09/03/2024 Address:[address] [place], [id number] Pcp:Krishan Caldwell Subjective: * Chief Complaints: * [facility] . [facility] * Medical History: * Medications: [...] *Please review and pick correct strength-formulation from [facility] options. If intended option is not shown, [...] Electronic signature of Prov ider Migration on 12/20/2024 at 11:04 AM EDT Sign off status: Pending * Provider: Cindy moore Migration Date: 09/03/2024 Generated for Sobeida rosenberg/Jena/Wilbur on: 12/20/2024 11:04 AM EDT
--- OUTSIDE RECORDS SUMMARY | 2024-10-31 07:45 | XMS_ITS ---
Author Organization [facility] PE D ANY Address [address] [facility] [address] [place] [address] Care Team Providers Care Regulatory Scientist Name Role Phone Krishan Caldwell Primary Care Provider [phone] Allergies Allergen (clinical drug ingredient) Drug/Non Drug Allergy documented on EMR Reaction Allergy Type Onset Date Status Niacin Unknown Drug Allergy Active Reason For Referral Reason Dr. Stapleton ENT Diagnosis 1 Impacted cerumen of right ear (H61.21) Referral Organization [facility] PED ANY Referring Provider First Name Krishan Referring Provider Last Name Paulette Referring Provider Speciality Internal M edicine Referred Organization [facility] Referred Address [address] [facility] [address], [place], [place],[address], Referred Provider Specialty Otology, Lar yngology, Rhinology General Notes Mary Caba 2024 03:13:01 PM >talked to and gave info Referral Priority Routine Referral Appointment Date 11/30/2024 REASON FOR VISIT right ear pain, unable to hear out of right ear Medications Medication SIG (Take, Route, Frequency, Duration) Notes Start Date End Date Status Magnesium Oxide 400 MG 1 tab(s) orally bid; Duration: 90 days 11/10/2016 Active Azelastine HCl 137 MCG/SPRAY 2 spray(s) intranasally 2 times a day; Duration: 30 day(s) prn Active Fluticasone Propionate 0.05 % 1 manuel applied topically 2 times a day; Duration: 14 day(s) prn 09/23/2021 Not-Taking tiZANidine HCl 4 MG 1-2 tab(s) orally every 8 hours PRN; Duration: 10 days 10/01/2021 Active Meclizine HCl 25 MG 1 tab(s) orally 3 times a day as needed for vertigo; Duration: 10 days 04/02/2022 Active Triamcinolone Acetonide 0.5 % 1 manuel applied topically 2 times a day prn prn 07/16/2018 Not-Taking Tylenol Extra Strength 500 MG 2 tab(s) orally prn Activ e Voltaren 1 % 2 g applied topically qid prn Active HAIR, SKIN, NAILS 5 MG 1 CAP(S) ORALLY ONCE A DAY *Please review for potential replacement for e-prescription and drug interaction check* Active Vitamin B-12 1000 MCG 1 JAMES SUBLINGUALLY ONCE A DAY; Duration: 30 DAY(S) *Please review and pick correct strength-formula tion from Ridemakerz options. If intended option is not shown, discontinue and re-order from Quick Search* 07/23/2018 Active OZEMPIC 4 MG/3 ML 1 MG SUBCUTANEOUSLY ONCE A WEEK *Please review for potential replacement for e-prescription and drug interaction check* Active Irbesartan 75 MG 1 tab(s) orally once a day Active Clopidogrel Bisulfate 75 MG 1 tab(s) orally once a day Active Aspirin 81 MG 1 tab(s) orally once a day Active Atorvastatin Calcium 40 MG 1 tab(s) orally once a day Active Bisoprolol Fumarate 5 MG 1 tab(s) orally once a day Active Losartan Potassium-HCTZ 50-12.5 MG 1 tab(s) orally once a day Active Naproxen 500 MG 1 tab(s) orally 2 times a day (as needed); Duration: 30 days Not-Taking hydrOXYzine Pamoate 25 MG 1 cap(s) orally 3 times a day prn itching; Duration: 14 day(s) Active Levothyroxine Sodium 112 MCG 1 tab(s) orally once a day; Duration: 90 days Active Ondansetron HCl 4 MG 1 tab(s) orally every 8 hours as needed for nausea; Duration: 5 days 04/02/2022 Active Vital Signs Temperature 97.7 degrees Fahrenheit 11/01/19 25 Blood pressure systolic 130 mm Hg 11/01/19 25 Blood pressure diastolic 80 mm Hg 025 Heart Rate 74 /min 10/31/2024 Height 5 ft 6.75 in in 10/31/2024 Weight 163.6 lbs 10/31/2024 BMI 25.81 kg/m2 10/31/2024 Encounters Encounter Location Date Provider Diagnosis [facility] [address] [place] [address] 10/31/2024 Krishan Caldwell Impacted cerumen of right ear H61.21 Assessments Encounter Date Diagnosis (ICD Code) Assessment Notes Treatment Notes Treatment Clinical Notes Section Notes 10/31/2024 Impacted cerumen of right ear (ICD-10 - H61.21) Follow-up with ENT for cerumen impaction removal Plan Of Treatment Treatment Notes Assessment Notes Impacted cerumen of right ear Follow-up with ENT for cerumen impaction removal Referrals Referral Date Details 10/31/2024 10/31/2024, Dr. Larry crooks ENT, [address] [facility] [address], [place], [address], Next Appt Details Follow Up: prn, Reason: Provider Name:Krishan Prosper Caldwell, 02/15/2025 09:30:00 AM, [address] [facility] [address], [address], [place], [address], Progress Notes * Lavinia IYER ADOB:1950 (74 yo F)Acc No.[id number]:10/31/2024 Progress Notes Patient: Lavinia FERRELL Provider: Min Caldwell MD :1950 A ge:74 Y S ex:Female Date:10/31/2024 Address:[address] [place], [place] [address], [id number] Subjective: * Chief Complaints: * 1 . Right ear pain. 2. Unable to hear out of right ear. * HPI: g en: Ms. Iyer is a 74 year old female presenting to the clinic for right ear pain with hearing loss. She reports symptoms have gotten worse over the past month but she has had issues with this ear in the past. Last year she followed with ENT who partially cleared the cerumen impaction and g ave her drops to soften the cerumen. She was lost to follow-up. She reports they w anted to set her up with hearing aids but she is unable to afford this, therefore she did not want to follow-up with them. She continues to use the ear drops but does not feel that they are helping. She denies any other symptoms. * Medical History: H ypercholestrolemia, Hypertension, Hypothyroidism, Arthritis, Carpal tunnel, Breast cancer - s/p excicion 2017 - normal mammogram f/u 06/20 and normal 07/24 and normal 07/25, normal bone density DEXA scan July/2018 - also normal 04/2021, C-scope 12/19 with multiple tubular adenomas - repeated 12/20 with isolated tubular adenoma - repeat 02/22 with 2 tubular adenomas, Vertigo. * Medications: T aking Bisoprolol Fumarate 5 [...] *Please review and pick correct strength-formulation from Medispan options. If intended option is not shown, discontinue and re-order from Quick Search*, Taking Magnesium Oxide 400 MG Tablet 1 [...] hours as needed for nausea , Taking hydrOXYzine Pamoate 25 MG Capsule 1 cap(s) orally 3 times a day prn itching , Taking Levothyroxine Sodium 112 MCG Tablet 1 tab(s) orally once a day , Not-Taking Triamcinolone Acetonide 0.5 % Ointment 1 manuel applied topically 2 times a day prn , Notes to Pharmacist: prn, Not-Taking Fluticasone Propionate 0.05 % Cream 1 manuel applied topically 2 times a day , Notes to Pharmacist: prn, Not-Taking Naproxen 500 MG Tablet 1 tab(s) orally 2 times a day (as needed) , Medication List reviewed and reconciled with the patient * Allergies: N iacin. Objective: * Vitals: N urse:sw, Pain:8-9 right ear, Temp:97.7, RR:18, HR:74, BP:130/80, Ht: 5 ft 6.75 in, Wt:163.6, BMI:25.81. * Examination: G eneral Examination: General P leasant and Cooperative, NAD on RA,. Chest: n ormal shape and expansion. Heart: R egular Rate. HEENT: C erumen impaction in right ear; unable to view TM, left ear also contains large amounts of cerumen. Psych N ormal Mood/Affect. Assessment: * Assessment: 1. I mpacted cerumen of right ear - H61.21 (Primary) Plan: * Treatment: * Follow Up: p rn * * Sign off status: Completed true * Provider: Min Caldwlel MD Date: 10/31/2024 Generated for Sobeida rosenberg/Jena/Jostinitting on: 12/20/2024 11:04 AM EDT History and Physical Notes * HPI (History of Present Illness) Category Sub-Category Detail Notes Category Not es gen Ms. Iyer is a [age] year old female presenting to the clinic for right ear pain with hearing loss. She reports symptoms have gotten worse over the past month but she has had issues with this ear in the past. Last year she followed with ENT who partially cleared the cerumen impaction and gave her drops to soften the cerumen. She was lost to follow-up. She reports they wanted to set her up with hearing aids but she is unable to afford this, therefore she did not want to follow-up with them. She continues to use the ear drops but does not feel that they are helping. She denies any other symptoms. Examination Category Sub-Category Detail Notes Category Not es General Examination HEENT: Cerumen impa ction in right ear; unable to view TM, left ear also contains large amounts of cerumen Heart: Regular Rate Chest: normal shape and exp ansion General Pleasant and Coopera tive, NAD on RA, Psych Normal Mood/Affect Consultation Request Notes Referral Date Referring Provider Referred Provider Not es 10/31/[address] Alexande r ENT
--- OUTSIDE RECORDS SUMMARY | 2024-11-14 05:00 | XMS_ITS ---
Author Organization [facility] Address [address] [place] [address] Care Team Providers Care Financial Sales Consultant Name Role Phone Paulette Krishan Primary Care Provider [phone] Allergies Allergen (clinical drug ingredient) Drug/Non Drug [...] review and pick correct strength-formulat ion from MindEdge options. If intended option is not shown, [...] 11/14/2024 Encounters Encounter Location Date Provider Diagnosis [facility] ANY [address] [facility] [address] [place] [address] 11/14/2024 Krishan Caldwell Type 2 diabetes mellitus [...] A1c under good control at last visit. [facility] reviewed. No changes in plan, has optometry [address], [place], [address], Progress Notes * Lavinia IYER ADOB:1950 (74 yo F)Acc No.[id number]:11/14/2024 Progress Notes Patient: Lavinia FERRELL A Provider: Min Caldwell MD :1950 A ge:74 Y S ex:Female Date:11/14/2024 Address:[address] [place] [address] [id number] Subjective: * Chief Complaints: * 1 . [...] *Please review and pick correct strength-formulation from Vestmarkspan options. If intended option is not shown, [...] 11/14/2024 Generated for Sobeida rosenberg/Jena/Jostinitting on: 0 12/20/2024 11:05 AM EDT History and Physical Notes * [...]
--- NOTE | 2024-12-20 | CA_ITS ---
APPROVED REPORT Exam: Pharmacologic Technologist: Krysten Beebe Ht: 5 ft 5 in Wt: 163 lbs BSA: 1.81 m2 HR: 74 bpm BP: 152/69 mmHg Stress Test Details Test: Lexiscan HR Resting HR: 74 bpm Max Heart Rate (APMHR): 145.287244 bpm Max HR Achieved: 85 bpm Target HR (85% APMHR): 123.295095 bpm % of APMHR: 58.62 Recovery HR: 77 bpm BP Resting BP: 152.0/69.0 mmHg Max BP: 152.0/69.0 mmHg Recovery BP: 141.0/75.0 mmHg ECG Resting ECG: Sinus rhythm Stress ECG Conclusion Symptoms: Dyspnea Arrhythmias/Ectopy: - ST-T Changes: Less than [address] depression. Conclusion: EKG unremarkable due to Lexiscan infusion. Electronically signed by : Zohreh Whyte MD 12/20/2024 14:54:36
--- OUTSIDE RECORDS SUMMARY | 2024-12-20 11:05 | XMS_ITS | Clinical Summary ---
Author Organization [facility] Address [address] [place] [address] Care Team Providers Care Shoe Repairer Apprentice Name Role Phone Krishan Caldwell MD Primary Care Provider [phone] Allergies No known active allergies Social History Tobacco Use Types Packs/Day Years Used Date Smoking Tobacco: Never Assessed Comments Unknown Sex and Gender Information Value Date Recorded Sex Assigned at Not on file Legal Sex Female 11:40 AM EST Gender Identity Not on file Sexual Orientation Not on file Last Filed Vital Signs Vital Sign Reading Time Taken Comments Blood Pressure - - Pulse - - Temperature - - Respiratory Rate - - Oxygen Saturation - - Inhaled Oxygen Concentration - - Weight 73.9 kg (163 lb) 05/17/2024 12:14 PM EST Height 167.6 cm (5' 6 ) 05/17/2024 12:14 PM EST Body Mass Index 26.31 05/17/2024 12:14 PM EST Plan of Treatment Health Maintenance Due Date Last Done Comments ANNUAL PHYSICAL 1950 DXA SCAN 1950 HEPATITIS C SCREENING 1949 COLOGUARD 1994 COLON CANCER SCREENING 5 YEA R SIGMOIDOSCOPY 1994 COLONOSCOPY 1994 [address] CANCER SCREENING 1994 CT COLONOGRAPHY 1994 FECAL OCCULT BLOOD TEST 1994 FIT Testing (1 year) 1994 Pneumococcal Vaccine 50+ (1 of 1 - PCV) 10/22/1999 ZOSTER VACCINE (1 of 2) 10/22/1999 TDAP/TD VACCINES (2 - Tdap) 08/05/2006 08/05/1996 COVID-19 Vaccine ( season) 01/31/202410/2020, 11/13/2020 RSV Vaccine - Adults (1 - 1- dose 75+ series) 2024 INFLUENZA VACCINE 03/01/2025 Insurance Care Teams Shoe Repairer Apprentice Relationship Specialty Start Date End Date Krishan Caldwell MD [address] [facility] [address] [place] [address] PCP - General Adolescent Medicine 04/26/24
--- OUTSIDE RECORDS SUMMARY | 2024-12-20 11:05 | XMS_ITS | Patient Health Record ---
Author Organization [facility] Address [address] [place] [address] Care Team Providers Care Environmental Engineering Professor Name Role Phone Krishan Caldwell Primary Care Provider Migration, Provider Unavailable Unavailable Allergies Allergen (clinical drug ingredient) Drug/Non Drug Allergy documented on EMR Reaction Allergy Type Onset Date Status Niacin Unknown Drug Allergy Active Results Component Value Reference Range Notes Ultrasound: Transvaginal Reviewed date:08/12/2024 06:48:18 AM Interpretation: Performing Lab: Notes/Report: M-Complete Blood Count Auto Diff Reviewed date:08/01/2024 05:08:21 PM Interpretation: Performing Lab: Notes/Report: WBC 6.4 4.8-10.8 K/mm3 RBC 4.53 4.20-5.40 M/mm3 HGB 13.5 12.2-16.2 g/dL HCT 41.2 37.0-47.0 % MCV 90.9 81-99 fl MCH 29.8 27.0-31.2 pg MCHC 32.8 31.8-35.4 g/dL RDW 14.1 11.5-17.5 % PLT 153 142-424 K/mm3 MPV 11.8 7.4-10.4 fl NE% 58.9 37.0-80.0 % LY% 24.0 10-50 % MO% 11.9 1.7-9.3 % EO% 4.1 0.1-12.0 % BA% 0.8 0.1-2.0 % NE# 3.8 1.8-7.8 K/mm3 LY# 1.5 0.7-4.5 K/mm3 MO# 0.8 0.1-1.0 K/mm3 EO# 0.3 0.0-0.4 K/mm3 BA# 0.1 0-0.2 K/mm3 M-Complete Blood Count Auto Diff Reviewed date:05/05/2024 12:28:11 PM Interpretation: Performing Lab: Notes/Report: WBC 6.9 4.8-10.8 K/mm3 RBC 4.61 4.20-5.40 M/mm3 HGB 13.8 12.2-16.2 g/dL HCT 42.1 37.0-47.0 % MCV 91.3 81-99 fl MCH 30.0 27.0-31.2 pg MCHC 32.9 31.8-35.4 g/dL RDW 14.6 11.5-17.5 % PLT 162 142-424 K/mm3 MPV 9.9 7.4-10.4 fl NE% 64.9 37.0-80.0 % LY% 22.5 10-50 % MO% 8.2 1.7-9.3 % EO% 3.7 0.1-12.0 % BA% 0.8 0.1-2.0 % NE# 4.5 1.8-7.8 K/mm3 LY# 1.6 0.7-4.5 K/mm3 MO# 0.6 0.1-1.0 K/mm3 EO# 0.3 0.0-0.4 K/mm3 BA# 0.1 0-0.2 K/mm3 M-Comprehensive Metabolic Pa luli Reviewed date:05/05/2024 12:28:12 PM Interpretation: Performing Lab: Notes/Report: NA 142 136-145 mmol/L K 4.2 3.5-5.1 mmoL/L CL 107 98-107 mmol/L CO2 28 22.0-30.0 mmol/L GAP 11.2 5-15 mEq/L BUN 19 7-17 mg/dl CREATT 1.40 0.52-1.04 mg/dl GFRAA 44 >60 ML/MIN EGFR 37 >60 ml/min GLU 83 74-100 mg/dl CA 9.6 8.4-10.2 mg/dl BILIT 0.6 0.2-1.3 mg/dl AST 56 14-36 U/L ALT 35 12-78 U/L TP 6.2 6.3-8.2 g/dl ALB 4.1 3.5-5.0 g/dl GLOB 2.1 1.3-3.2 g/dL AGRATIO 2.0 1.1-1.8 ALP 136 38-126 U/L M-Hemoglobin A1C Reviewed date:08/01/2024 05:08:21 PM Interpretation: Performing Lab: Notes/Report: HGBA1C 5.5 4.0-6.0 % < 6% Non-Diabetic Level < 7% Controlled Diabetic Level > 8% Poorly Controlled Diabetic Level M-Lipid Panel Reviewed date:05/05/2024 12:28:12 PM Interpretation: Performing Lab: Notes/Report: Patient Fasting? N TRIG 87 30-150 mg/dl CHOL 111 140-200 mg/dl DLDL 56.57 100-129 mg/dL VLDL 17 0-40 mg/dL HDL 42 40-60 mg/dl CHLHDL 2.6 1-3.5 M-Lipid Panel Reviewed date:08/01/2024 05:08:21 PM Interpretation: Performing Lab: Notes/Report: Patient Fasting? N TRIG 93 30-150 mg/dl CHOL 108 140-200 mg/dl DLDL 52.45 100-129 mg/dL VLDL 19 0-40 mg/dL HDL 38 40-60 mg/dl CHLHDL 2.8 1-3.5 M-Thyroid Panel Reviewed date:05/05/2024 12:28:12 PM Interpretation: Performing Lab: Notes/Report: FTI 3.4 5.93-13.13 ug/dL T4 9.5 5.53-11.0 ug/dl T3U 36 23.5-40.5 % TSH < 0.02 0.465-4.68 uIU/mL M-Drug Screen,Urine Reviewed date:08/01/2024 05:08:21 PM Interpretation: Performing Lab: Notes/Report: UOPIS Negative <300 ng/ml UBARBS Negative <200 ng/ml UPCPS Negative <25 ng/ml UAMPS Negative <1000 ng/ml UMETHS Negative <300 ng/ml UBENZS Negative <200 ng/ml UCOCS Negative <300 ng/ml UTHCS Negative <50 ng/ml H-MALBCREA Reviewed date:08/01/2024 05:08:21 PM Interpretation: Performing Lab: Notes/Report: Severely Increased: >300 Moderately Increased: 30 - 300 Units: mg/g creat Normal: 0 - 29 UCREAT 90 Not Estab. mg/dL Random urine reference range not established. 24 hour urine samples recommended. MICROALB 15.500 0-16.7 mg/L MALBCREAT 17.2 Medications Medication SIG (Take, Route, Frequency, Duration) Notes Start Date End Date Status Atorvastatin Calcium 40 MG 1 tab(s) orally once a day Active Levothyroxine Sodium 112 MCG 1 tab(s) orally once a day; Duration: 90 days Active Aspirin 81 MG 1 tab(s) orally once a day Active hydrOXYzine Pamoate 25 MG 1 cap(s) orally 3 times a day prn itching; Duration: 14 day(s) Active Clopidogrel Bisulfate 75 MG 1 tab(s) orally once a day Active Ondansetron HCl 4 MG 1 tab(s) orally diandra ry 8 hours as needed for nausea; Duration: 5 days 04/02/2022 Active Irbesartan 75 MG 1 tab(s) orally once a day Active Meclizine HCl 25 MG 1 tab(s) orally 3 times a day as needed for vertigo; Duration: 10 days 04/02/2022 Active OZEMPIC 4 MG/3 ML 1 MG SUBCUTANEOUSLY ONCE A WEEK *Please review for potential replacement for e-prescription and drug interaction check* Active tiZANidine HCl 4 MG 1-2 tab(s) orally every 8 hours PRN; Duration: 10 days 10/01/2021 Active Losartan Potassium-HCTZ 50-12.5 MG 1 tab(s) orally once a day Active Azelastine HCl 137 MCG/SPRAY 2 spray(s) intranasally 2 times a day; Duration: 30 day(s) prn Active Bisoprolol Fumarate 5 MG 1 tab(s) orally once a day Active Magnesium Oxide 400 MG 1 tab(s) orally bid; Duration: 90 days 11/10/2016 Active Vitamin B-12 1000 MCG 1 JAMES SUBLINGUALLY ONCE A DAY; Duration: 30 DAY(S) *Please review and pick correct strength-formulat ion from Divided options. If intended option is not shown, discontinue and re-order from Quick Search* 07/23/2018 Active Meclizine HCl 25 MG 1 tablet as needed Orally every 12 hrs; Duration: 10 days As needed 11/14/2024 Active HAIR, SKIN, NAILS 5 MG 1 CAP(S) ORALLY ONCE A DAY *Please review for potential replacement for e-prescription and drug interaction check* Active Voltaren 1 % 2 g applied topicall y qid prn Active Tylenol Extra Strength 500 MG 2 tab(s) orally prn Activ e Immunizations Vaccine Route Administration Date Status Comme nts Adacel (Tdap) IM Intramuscular 07/06/2015 Administered Problems Problem Type SNOMED Code ICD Code Onset Dates Problem Status W/U Status Risk Notes Problem Peripheral circulatory disorder associated with diabetes mellitus (422029958) Type 2 diabetes mellitus with other circulatory complications (E11.59) Active confirmed Problem Polyneuropathy (06845838) Polyneuropathy in diseases classified elsewhere (G63) Active confirmed Problem Atherosclerotic heart disease of [place] coronary artery without angina pectoris (045181406474421) Atherosclerotic heart disease of [place] coronary artery without angina pectoris (I25.10) Active confirmed Problem Arthritis (4057608) Arthritis (M19.90) Active confirmed Problem Hyperlipidemia (76974508) Hyperlipemia, idiopathic familial (E78.5) Active confirmed Problem Vitamin B12 deficiency (non anemic) (90486933) B12 deficiency (E53.8) Active confirmed Problem Essential hypertension (19914590) Hypertension, essential (I10) Active confirmed Problem Acquired hypothyroidism (389540907) Acquired hypothyroidism (E03.9) Active confirmed Problem Personal history of primary malignant neoplasm of breast (567632228) History of breast cancer (Z85.3) Active confirmed Problem Postmenopausal bleeding (99685607) Post-menopausal bleeding (N95.0) Active confirmed Problem Diabetic peripheral neuropathy associated with type 2 diabetes mellitus (7047950770924) Type 2 diabetes mellitus with diabetic neuropathy, without long-term current use of insulin (E11.40) Active confirmed Problem Peripheral venous insufficiency (64412658) Stasis dermatitis of both legs (I87.2) Active confirmed Problem Chronic kidney disease stage 3B (disorder) (383384529) Chronic kidney disease, stage 3b (N18.32) Active confirmed Vital Signs Heart Rate 76 /min 11/14/2024 Temperature 97.9 degrees Fahrenheit 11/14/2024 Blood pressure diastolic 62 mm Hg 11/14/2024 Height 5 ft 6.75 in in 11/14/2024 Blood pressure systolic 120 mm Hg 11/14/2024 Weight 166 lbs 11/14/2024 BMI 26.19 kg/m2 11/14/2024 Encounters Encounter Location Date Provider Diagnosis [facility] [address] [place] [address] 09/03/2024 Provider Migration [facility] [address] [place] [address] 02/17/2024 Krishan Caldwell Hypertension, essent ial I10 ; Acquired hypothyroidism E03.9 ; Idiopathic neuropathy G60.9 ; Type 2 diabetes mellitus with diabetic neuropathy, without long-term current use of insulin E11.40 ; Primary osteoarthritis, right hand M19.041 and Primary osteoarthritis, left hand M19.042 [facility] [address] [place] [address] 05/04/2024 Krishan Caldwell Hyperlipemia, idiopathic familial E78.5 ; Acquired hypothyroidism E03.9 ; Stage 3a chronic kidney disease (CKD) N18.31 ; History of breast cancer Z85.3 and Rhinitis, unspecified type J31.0 [facility] [address] [place] [address] 08/01/2024 Krishan Caldwell Type 2 diabetes mellitus with diabetic neuropathy, without long-term current use of insulin E11.40 ; Atherosclerotic heart disease of [place] coronary artery without angina pectoris I25.10 ; Chronic kidney disease, stage 3b N18.32 ; High risk medication use Z79.899 ; Acquired hypothyroidism E03.9 ; Adenocarcinoma of right breast C50.911 ; Arthritis M19.90 ; Hypertension, essential I10 and Healthcare maintenance Z00.00 [facility] [address] [place] [address] 08/10/2024 Krishan Caldwell Post-menopausal bleeding N95.0 [facility] [address] [place] [address] 10/31/2024 Krishan Caldwell Impacted cerumen of right ear H61.21 [facility] [address] [place] [address] 11/14/2024 Krishanheidi Caldwell Type 2 diabetes mellitus with diabetic neuropathy, without long-term current use of insulin E11.40 ; Chronic kidney disease, stage 3b N18.32 ; History of breast cancer Z85.3 and Vertigo R42 [facility] [address] [place] [address] 05/10/2024 Krishan Besson [facility] [address] [place] [address] 08/01/2024 Krishan Besson [facility] [address] [place] [address] 08/11/2024 Krishan Besson [facility] [address] [place] [address] 11/14/2024 Krishan Besson [facility] [address] [place] [address] 12/16/2024 Krishan Besson [facility] [address] [place] [address] 12/19/2024 Krishan Besson Assessments Encounter Date Diagnosis (ICD Code) Assessment Notes Treatment Notes Treatment Clinical Notes Section Notes 05/04/2024 Hyperlipemia, 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 I will review these personally 05/04/2024 Acquired hypothyroidism (ICD-10 - E03.9) Reviewed TSH and T4 levels 08/01/2024 Atherosclerotic heart disease of mi[place] coronary artery without angina pectoris (ICD-10 - I25.10) No current cardiac symptoms 08/01/2024 Type 2 diabetes mellitus with diabetic neuropathy, without long-term current use of insulin (ICD-10 - E11.40) Overall doing well, on SGLT2 inhibitor. No changes in plan. Asymptomatic from hyper or hypoglycemia standpoint. Will check labs today including microalbumin testing 08/10/2024 Post-menopausal bleeding (ICD-10 - N95.0) Ongoing for last 2 weeks. No associated orthostatic hypotension, dizziness. Does have history of breast cancer and was on tamoxifen from [id number]. Will order TVUS to evaluate for causes of post-menopausal bleeding. 11/14/2024 Type 2 diabetes mellitus with diabetic neuropathy, without long-term current use of insulin (ICD-10 - E11.40) A1c under good control at last visit. UAC reviewed. No changes in plan, has optometry follow-up on December 01 for diabetic eye exam. 11/14/2024 Chronic kidney disease, stage 3b (ICD-10 - N18.32) Stable. Good urine output, UAC and labs reviewed 02/17/2024 Hypertension, essential (ICD-10 - I10) Blood pressures under good control. No changes no plan 02/17/2024 Acquired hypothyroidism (ICD-10 - E03.9) Clinically euthyroid. TSH levels normal at last visit 10/31/2024 Impacted cerumen of right ear (ICD-10 - H61.21) Follow-up with ENT for cerumen impaction removal 11/14/2024 History of breast cancer (ICD-10 - Z85.3) Follows with surgeon. No evidence of recurrence. 02/17/2024 Idiopathic neuropathy (ICD-10 - G60.9) Remains on gabapentin. No changes in plan. Seems to have fairly good symptom control 08/01/2024 Chronic kidney disease, stage 3b (ICD-10 - N18.32) 05/04/2024 Stage 3a chronic kidney disease (CKD) (ICD-10 - N18.31) 05/04/2024 History of breast cancer (ICD-10 - Z85.3) Will prescribe diazepam for her to use on arrival to MRI scanner for situational anxiety 08/01/2024 High risk medication use (ICD-10 - Z79.899) Has a history of unintentional medicine diversion with gabapentin in the past. Will check drug screen given her 's use of hydrocodone 11/14/2024 Vertigo (ICD-10 - R42) Will refill meclizine. Hopefully cerumen impaction will of help symptomatology. 02/17/2024 Type 2 diabetes mellitus with diabetic neuropathy, without long-term current use of insulin (ICD-10 - E11.40) No changes 02/17/2024 Primary osteoarthritis, right hand (ICD-10 - M19.041) Discussed with patient that nodes and appearance of hands were consistent with her known diagnosis of OA. She has no pain and no restriction of range of motion so I do not think she needs to go see Ortho or have any intervention done unless she has symptoms of reduced range of motion or pain. She will let me know. 08/01/2024 Acquired hypothyroidism (ICD-10 - E03.9) T4 normal last visit. No change 05/04/2024 Rhinitis, unspecified type (ICD-10 - J31.0) Discussed with her and daughter that antibiotics were not appropriate to prevent infections. Discussed hydration, vitamin C, Mucinex if she has some drainage. Discussed signs and symptoms of needing antibiotic and when to call back. 02/17/2024 Primary osteoarthritis, left hand (ICD-10 - M19.042) 08/01/2024 Adenocarcinoma of right breast (ICD-10 - C50.911) Follows with surgery and oncology. No changes 08/01/2024 Arthritis (ICD-10 - M19.90) On Tylenol. Seems to have good symptom control 08/01/2024 Hypertension, essential (ICD-10 - I10) Good blood pressure control on current medications. No changes in plan 08/01/2024 Healthcare maintenance (ICD-10 - Z00.00) Up-to-date with colon screening and breast cancer follow-up. Declines vaccinations as noted. Labs ordered today. No recent falls. Functional status good. Depression screening negative. Plan Of Treatment Pending Test Test Name Order Date Holter Monitor, 24 Hour 05/16/2009 Physical Therapy 02/21/2015 Mammogram : Bilateral 09/06/2015 Mammogram : Bilateral 05/12/2016 MRI : Hand, Right 07/27/2015 H-LIPID PANEL 11/06/2010 H-LIPID PANEL 12/03/2009 C-CBC 03/15/2012 C-CBC 02/09/2017 C-CBC 06/18/2009 C-CBC 04/08/2010 C-CMP 04/08/2010 C-CMP 06/18/2009 C-CMP 02/09/2017 C-CMP 03/15/2012 C-LIPID PANEL 03/15/2012 C-LIPID PANEL 02/09/2017 C-LIPID PANEL 06/18/2009 C-LIPID PANEL 04/08/2010 C-TSH 04/08/2010 C-TSH 06/18/2009 C-TSH 02/09/2017 C-URINE CULTURE 11/12/2009 C-MISC CULTURE 01/26/2012 Uric Acid, Serum 08/05/2012 M-Peripheral Smear Review 12/05/2020 M-Vitamin B12 12/05/2020 M-Iron and TIBC 12/05/2020 M-Microalb/Creat Ratio, Randm Ur 025 Future Test Test Name Order Date C-HGBA1C 12/29/2008 H-TSH 11/07/2013 Next Appt Details Provider Name:Krishan Caldwell, 02/15/2025 09:30:00 AM, [address], [place], [address], Insurance Providers Payer Name Payer Address Payer Phone Subscriber Number Group Number Insured Name Patient Relationship to Insured Coverage Start Date Coverage End Date [employer] [address] [address] [place] [address] [id number] Lavinia Iyer Self - patient is the insured Medications Administered Medication Instructions Date of Administration Dosage Notes Kenalog 05/30/2014 1 mL Medical (General) History Medical History History ICD Code hypercholestrolemia hypertension hypothyroidism Arthritis carpal tunnel breast cancer - s/p excicion 2017 - normal mammogram f/u 06/20 and normal 07/24 and normal 07/25 normal bone density DEXA scan 019 - also normal 04/2021 C-scope 12/19 with multiple t ubular adenomas - repeated 12/20 with isolated tubular adenoma - repeat 02/22 with 2 tubular adenomas vertigo Surgical History Surgery Date(Month/Year) lumpectomy-rt breast 07/2016 Tubal ligation 1980s 5 stents 06/2023 colonoscopy 01/2024 [facility]- 05/10/24, 06/14/24 Hospitalization History Reason Date(Month/Year) [facility] 06/2023
--- NOTE | 2024-12-20 11:30 | NM_ITS ---
APPROVED REPORT Exam: Nuclear Stress Test Indication: SOB, Fatigue, HTN, DM, High cholesterol, Family history, CAD Patient Location: Outpatient Stress Tech: Krysten Beebe SD Tech:Ellen Sanz, ARRT, RT (R)(N) Ht: 5 ft 5 in Wt: 163 lbs Bra Size: D HR: 70 bpm BP: 152/69 mmHg BSA: 1.81 m2 TID: 1.10 BMI: 27.1 History: SOB, Fatigue, HTN, DM, High cholesterol, Family history, CAD Procedure: Patient received 0.4 mg of intravenous Lexiscan, resting heart rate 70 bpm, resting blood pressure 152/69 mmHg, with Lexiscan maximum heart rate achieved was 85 bpm which is % of the maximum predicted heart rate and blood pressure was 141/75 mmHg. With Lexiscan, patient denied any complaint of chest pain. Cardiac Stress and Resting SPECT Images: Cardiac Stress and Resting SPECT images were obtained using technetium 99m Myoview 32.5 mCi stress and 10.97 mCi at rest. The patient was unable to lie on her abdomen. Therefore, prone stress imaging could not be performed. This may affect his diagnostic interpretation of the study findings. Resting and stress imaging in supine positions demonstrate no evidence of fixed or reversible perfusion defects. Gated imaging demonstrates normal global and regional LV systolic function. LVEF is calculated at 62%. Conclusion: No evidence of fixed or reversible perfusion defects. Gated imaging demonstrates normal global and regional LV systolic function. LVEF is calculated at 62%. Electronically signed by : Zohreh Whyte MD 12/20/2024 14:49:25
[2024-12-20] MEDS: SODIUM CHLORIDE 0.9% 10ML SYR (RAD ONLY) 10 ML IV ×2 (12:48)
[2024-12-20] MEDS: ISOTOPE MYOVIEW (PER STUDY) 1 DOSE IV (12:48)
--- NOTE | 2024-12-20 14:00 | CA_ITS ---
APPROVED REPORT EXAM: Comprehensive 2D, Doppler, and color-flow Echocardiogram Disaster Recovery Manager: Yamilet Hoff, RT(R) Ht: 5 ft 5 in Wt: 163lbs BSA: 1.81 BP: 134/67 mmHg Indications: dyspnea, cp, hx breast cancer with right lumpectomy Echo Enhancing Agent Indication: Rule out Shunt Agent(s) / Amount(s) Used: Agitated Saline 20 cc Comments: Bubble study ordered per Eden Miller APRN 2D Dimensions LVEF (Stafford's) 67.50 % F: 54 - 74 LV Volume 109.20 mL F: 46 - 106 LV Volume Index 60.0 mL/m2 F: 29 - 61 LA Volume 24.70 mL LA Volume Index 13.57 mL/m2 (M/F) 16-34 EF AP4 61.20 % EF AP2 72.8 % EF BP 67.5 % GL Strain -21.6 % M-Mode Dimensions RVDd 2.60 cm (0.9-2.6) LA Diam 3.01 cm (1.9-4.0) LVDd 4.57 cm (3.5-5.7) LVDs 3.19 cm (3.5-5.7) IVSd 0.69 cm (0.6-1.1) PWd 0.72 cm (0.6-1.1) EF (Teich) 57.70% FS 30.20% EDV (Teich) 95.90 mL ESV (Teich) 40.60 mL LV Diastology E Decel Time 270 (160-240 msec) E/A Ratio 0.7 Mitral Valve MV E Max Bossman. 94.0 (40-130 cm/s) MV A Velocity 127.0 (40-130 cm/s) E/A Ratio 0.74 MV PHT 79.0 ms Left Ventricle The left ventricle is normal size. The left ventricular systolic function is normal. The left ventricular ejection fraction is within the normal range. There is normal left ventricular wall thickness. There is normal LV segmental wall motion. The left ventricular diastolic function is normal. LVEF is 55%. Right Ventricle The right ventricle is normal size. The right ventricular systolic function is normal. Atria The left atrium size is normal. The right atrium size is normal. There is no Doppler evidence of interatrial shunt. Aortic Valve The aortic valve is mildly thickened. There is no aortic valvular stenosis. Mild aortic regurgitation. Mitral Valve The mitral valve is normal in structure. No evidence of mitral valve stenosis. Trace mitral regurgitation. Tricuspid Valve Tricuspid valve is grossly normal in structure and function. Trace tricuspid regurgitation. Insufficient TR jet to estimate RVSP. Pulmonic Valve The pulmonary valve is normal in structure. Trace pulmonic regurgitation. Great Vessels The aortic root is normal in size. IVC is normal in size and collapses >50% with inspiration. Pericardium There is no pericardial effusion. Other Information Study Quality: Fair Conclusion Normal biventricular systolic function. Mild AI. Electronically signed by : Zohreh Whyte MD 12/22/2024 13:35:33
== END 2024-12-20 23:59 | disposition home or self-care (01) ==
LOC: RAD 11:01
PROVIDERS: PCP Internal Medicine Adolescent Medicine; Visit Provider Nurse Practitioner
DX: I35.0 Nonrheumatic aortic (valve) stenosis (principal); Q24.8 Other specified congenital malformations of heart; I25.10 Atherosclerotic heart disease of native coronary artery without angina pectoris; I10 Essential (primary) hypertension; E11.9 Type 2 diabetes mellitus without complications; E78.00 Pure hypercholesterolemia, unspecified; Z85.3 Personal history of malignant neoplasm of breast; Z98.890 Other specified postprocedural states
CPT/HCPCS: 78452; 93016; 93017; 93018; 93306; A9502; J2785

== ENCOUNTER 2024-12-22 14:32 | Outpatient (CLI) | payer OTHER, SELFPAY ==
--- OUTSIDE RECORDS SUMMARY | 2024-12-22 14:39 | XMS_ITS | Clinical Summary ---
Author Organization [facility] Address [address] [place] [address] Care Team Providers Care Sugarcane Research Technician Name Role Phone Krishan Caldwell MD Primary Care Provider [phone] Allergies No known active allergies Social History [...] 2024 INFLUENZA VACCINE 03/01/2025 Insurance Care Teams Sugarcane Research Technician Relationship Specialty Start Date End Date Krishan Caldwell MD [address] [facility] [address] [place] [address] PCP - General Adolescent Medicine 04/26/24
== END 2024-12-22 23:59 | disposition home or self-care (01) ==
LOC: RT 14:33
PROVIDERS: PCP Internal Medicine Adolescent Medicine; Visit Provider Nurse Practitioner
DX: I49.1 Atrial premature depolarization (principal); I47.19 Other supraventricular tachycardia; I49.3 Ventricular premature depolarization; I25.10 Atherosclerotic heart disease of native coronary artery without angina pectoris
CPT/HCPCS: 93270

== ENCOUNTER 2024-12-26 09:24 | Outpatient (CLI) | payer OTHER, SELFPAY ==
--- OUTSIDE RECORDS SUMMARY | 2024-12-26 09:38 | XMS_ITS | Clinical Summary ---
Author Organization [facility] Address [address] [place] [address] Care Team Providers Care Development Editor Name Role Phone Krishan Caldwell MD Primary Care Provider [phone] Allergies No known active allergies Social History [...] 75+ series) 2024 INFLUENZA VACCINE 03/01/[address] [place] [address] Care Teams Development Editor Relationship Specialty Start Date End Date Krishan Caldwell MD [address] [facility] [address] [place] [address] PCP - General Adolescent Medicine 04/26/24
--- NOTE | 2024-12-26 09:41 | XR_ITS ---
FINAL REPORT TECHNIQUE: Cervical spine series, 5 views, including lateral flexion and extension as well CLINICAL HISTORY: gait ataxia, losing balance for 2-3 months, left arm numbness COMPARISON: None FINDINGS: CERVICAL SPINE, FLEXION/EXTENSION AND COMPLETE: 5 views of the cervical spine were obtained, as well as flexion and extension lateral views. There is anterolisthesis of C3 on C4, C4 on C5, C5 on C6, C6 on C7, and C7 on T1, mild. Multilevel degenerative disc disease is present, moderate to advanced. The precervical soft tissues are normal. No acute bony abnormality is present. There is no change in alignment with flexion and extension views. IMPRESSION: Multilevel anterolisthesis without evidence of motion with flexion and extension views. Reviewed, Interpreted and Dictated by Ashtyn Austin MD Transcribed by lEin Mckinney Authenticated and [facility]
[2024-12-26 11:30] LABS: Vitamin B12 763 pg/mL (239-931)
== END 2024-12-26 23:59 | disposition home or self-care (01) ==
LOC: LAB 09:25
PROVIDERS: PCP Internal Medicine Adolescent Medicine; Visit Provider Specialist
DX: R41.3 Other amnesia (principal); R42 Dizziness and giddiness; R53.1 Weakness; R29.90 Unspecified symptoms and signs involving the nervous system; Z85.3 Personal history of malignant neoplasm of breast; R26.0 Ataxic gait
CPT/HCPCS: 36415; 72052; 82607

== ENCOUNTER 2024-12-30 07:40 | Day surgery (SDC) | payer OTHER, SELFPAY ==
--- OUTSIDE RECORDS SUMMARY | 2024-09-03 17:30 | XMS_ITS ---
Author Organization [facility] Address [address] [place] [address] Care Team Providers Care Press Operator Name Role Phone Krishan Caldwell Primary Care Provider Migration, Provider Unavailable Unavailable Allergies Allergen (clinical drug ingredient) Drug/Non Drug Allergy documented on EMR Reaction Allergy Type Onset Date Status niacin Niacin Unknown Drug Allergy Active REASON FOR VISIT [facility] To [facility] Conversion Encounter Medications Medication SIG (Take, Route, [...] review and pick correct strength-formulat ion from [employer] options. If intended option is not shown, [...] Active Encounters Encounter Location Date Provider Diagnosis [place] [facility] [address] [facility] [address] [place] [address] 09/03/2024 Provider Migration Plan Of Treatment Next Appt Details Provider Name:Krishan Caldwell, 02/15/2025 09:30:00 AM, [address], [address], [place], [address], Progress Notes * Lavinia IYER ADOB:1950 (74 yo F)Acc No.[id number]:09/03/2024 Patient: Ramakrishna Lavinia RAINEY Provider: Cindy moore Migration :1950 A ge:73 Y S ex:Female Date:09/03/2024 Address:[address] [place], [id number] Pcp:Krishan Caldwell Subjective: * Chief Complaints: * [...] *Please review and pick correct strength-formulation from [facility] options. If intended option is not shown, [...] Electronic signature of Prov ider Migration on 12/30/2024 at 07:42 AM EDT Sign off status: Pending * Provider: Cindy moore Migration Date: 0 09/03/2024 Generated for Sobeida rosenberg/Jena/Wilbur on: 12/30/2024 07:42 AM EDT
--- OUTSIDE RECORDS SUMMARY | 2024-10-31 07:45 | XMS_ITS ---
Author Organization [facility] SH[facility] PE D ANY Address [address] [facility] [address] [facility] [address] [place] [address] Care Team Providers Care Printed Circuit Boards Stripper Etcher Name Role Phone Krishan Caldwell Primary Care Provider Allergies Allergen (clinical drug ingredient) Drug/Non Drug Allergy documented on EMR Reaction Allergy Type Onset Date Status niacin Niacin Unknown Drug Allergy Active Reason For Referral Reason Dr. Stapleton ENT Diagnosis 1 Impacted cerumen of right ear (H61.21) Referral Organization [facility] ROGER ANY Referring Provider First Name Krishan Referring Provider Last Name Paulette Referring Provider Speciality Internal M edicine Referred Organization [facility] Referred Address [facility] [address], [place], [place],[address],[place] Referred Provider Specialty Otology, Lar yngology, Rhinology [...] review and pick correct strength-formula tion from [place] [employer]ian options. If intended option is not shown, [...] 10/31/2024 Encounters Encounter Location Date Provider Diagnosis [facility] [address] [place] [address] 10/31/2024 Krishan Caldwell Impacted cerumen of right [...] 10/31/2024 10/31/2024, Dr. Larry crooks ENT, [address] [facility] [address] [facility], [place], [address], Next Appt Details Follow Up: prn, Reason: Provider Name:Krishan Prosperluz elena Caldwell, 02/15/2025 09:30:00 AM, [address] [facility] [address] [facility], [address], [place], [address], Progress Notes * Lavinia IYER ADOB:1950 (74 yo F)Acc No.[id number]:10/31/2024 Progress Notes Patient: Lavinia FERRELL Provider: Min Caldwell MD :1950 A ge:74 Y S ex:Female Date:10/31/2024 Address:[address] [place], [place] [address], [id number] Subjective: * Chief Complaints: * 1 . [...] off status: Completed true * Provider: Min Caldwell MD Date: 0 10/31/2024 Generated for Sobeida rosenberg/Jena/eTbowensmitting on: 0 12/30/2024 07:42 AM EDT History and Physical Notes * [...]
--- OUTSIDE RECORDS SUMMARY | 2024-11-14 05:00 | XMS_ITS ---
Author Organization [facility] Address [address] [place] [address] Care Team Providers Care Caregiver Assisted Living Name Role Phone Paulette Krishan Primary Care Provider Allergies Allergen (clinical drug ingredient) Drug/Non Drug Allergy documented on EMR Reaction Allergy Type Onset Date Status niacin Niacin Unknown Drug Allergy Active REASON FOR VISIT 3 month check up Medications Medication SIG (Take, Route, Frequency, Duration) [...] for nausea; Duration: 5 days 04/02/2022 Active Meclizine HCl 25 MG 1 tab(s) orally 3 times a day as needed for vertigo; Duration: 10 days 04/02/2022 Active tiZANidine HCl 4 MG 1-2 tab(s) orally every 8 hours PRN; Duration: 10 days 10/01/2021 Active Azelastine HCl 137 MCG/SPRAY 2 spray(s) intranasally 2 times a day; Duration: 30 day(s) prn Active Magnesium Oxide 400 MG 1 tab(s) orally bid; Duration: 90 days 11/10/2016 Active Atorvastatin Calcium 40 MG 1 tab(s) orally once a day Active Vitamin B-12 1000 MCG 1 JAMES SUBLINGUALLY ONCE A DAY; Duration: 30 DAY(S) *Please review and pick correct strength-formulat ion from Favoe options. If intended option is not shown, discontinue and re-order from Quick Search* 07/23/2018 Active HAIR, SKIN, NAILS 5 MG 1 CAP(S) ORALLY ONCE A DAY *Please review for potential replacement for e-prescription and drug interaction check* Active Voltaren 1 % 2 g applied topicall y qid prn Active Tylenol Extra Strength 500 MG 2 tab(s) orally prn Activ e Aspirin 81 MG 1 tab(s) orally once a day Active Clopidogrel Bisulfate 75 MG 1 tab(s) orally once a day Active Irbesartan 75 MG 1 tab(s) orally once a day Active OZEMPIC 4 MG/3 ML 1 MG SUBCUTANEOUSLY ONCE A WEEK *Please review for potential replacement for e-prescription and drug interaction check* Active Losartan Potassium-HCTZ 50-12.5 MG 1 tab(s) orally once a day Active Bisoprolol Fumarate 5 MG 1 tab(s) orally once a day Active Meclizine HCl 25 MG 1 tablet as needed Orally every 12 hrs; Duration: 10 days As needed 11/14/2024 Active Vital Signs Temperature 97.9 degrees Fahrenheit 11/15/19 25 Blood pressure systolic 120 mm Hg 11/15/19 25 Blood pressure diastolic 62 mm Hg 025 Heart Rate 76 /min 11/14/2024 Height 5 ft 6.75 in in 11/14/2024 Weight 166 lbs 11/14/2024 BMI 26.19 kg/m2 11/14/2024 Encounters Encounter Location Date Provider Diagnosis [facility] ANY [address] [facility] [address] [place] [address] 11/14/2024 Krishan Caldwell Type 2 diabetes mellitus with diabetic neuropathy, without long-term current use of insulin E11.40 ; Chronic kidney disease, stage 3b N18.32 ; History of breast cancer Z85.3 and Vertigo R42 Assessments Encounter Date Diagnosis (ICD Code) Assessment Notes Treatment Notes Treatment Clinical Notes Section Notes 11/14/2024 Type 2 diabetes mellitus with diabetic neuropathy, without long-term current use of insulin (ICD-10 - E11.40) A1c under good control at last visit. [facility] reviewed. No changes in plan, has optometry follow-up on December 01 for diabetic eye exam. 11/14/2024 Chronic kidney disease, stage 3b (ICD-10 - N18.32) Stable. Good urine output, UAC and labs reviewed 11/14/2024 History of breast cancer (ICD-10 - Z85.3) Follows with surgeon. No evidence of recurrence. 11/14/2024 Vertigo (ICD-10 - R42) Will refill meclizine. Hopefully cerumen impaction will of help symptomatology . Plan Of Treatment Medication Medication Name Sig Start Date Stop Date Notes Meclizine HCl 25 MG 1 tablet as needed O rally every 12 hrs; Duration: 10 days 11/14/2024 Treatment Notes Assessment Notes Type 2 diabetes mellitus wit h diabetic neuropathy, without long-term current use of insulin A1c under good control at last visit. [facility] reviewed. No changes in plan, has optometry follow-up on December 01 for diabetic eye exam. Chronic kidney disease, stage 3b Stable. Good urine output, UAC and labs reviewed History of breast cancer Follows with surgeon. No evidence of recurrence. Vertigo Will refill meclizin e. Hopefully cerumen impaction will of help symptomatology. Next Appt Details Follow Up: prn, Reason: Provider Name:Krishan Caldwell, 02/15/2025 09:30:00 AM, [address], [address], [place], [address], Progress Notes * Lavinia IYER ADOB:1950 (74 yo F)Acc No.[id number]:11/14/2024 Progress Notes Patient: Lavinia FERRELL A Provider: Min Caldwell MD :1950 A ge:74 Y S ex:Female Date:11/14/2024 Address:[address] [place] [address] [id number] Subjective: * Chief Complaints: * 1 . 3 month check up. * HPI: g en: Presents today for 3-month follow-up. In the interim, had cerumen removal from the right ear with ENT that has helped her quite a bit. They have scheduled her back for recurrent cerumen inspections. She would like a refill of meclizine for rare vertigo symptoms. Otherwise feels pretty well, getting around well, no recent falls. Good functional status. Labs done 3 months ago and were under good control. * Medical History: H ypercholestrolemia, Hypertension, Hypothyroidism, Arthritis, Carpal tunnel, Breast cancer - s/p excicion 2017 - normal mammogram f/u 06/20 and normal 07/24 and normal 07/25, normal bone density DEXA scan July/2018 - also normal 04/2021, C-scope 12/19 with multiple tubular adenomas - repeated 12/20 with isolated tubular adenoma - repeat 02/22 with 2 tubular adenomas, Vertigo. * Surgical History: l umpectomy-rt breast 07/2016, Tubal ligation , 5 stents 06/2023, colonoscopy 01/2024, CATARACT- 05/10/24, 06/14/24 . * Hospitalization/Major Diagno stic Procedure: H MH 06/2023. * Family History: F ather: . M other: . P aternal Grand Father: . P aternal Grand Mother: . M aternal Grand Father: . M aternal Grand Mother: . Siblings: alive. C hildren: alive. 1 brother(s) . 2 daughter(s) - healthy. . * Social History: S moking: no A re you a:: nonsmoker. R ecreational drug use: no. Exercise: yes. Home smoke detector use: yes. Caffeine: yes, frequency: 4-5 glasses of tea daily. Living Will: Yes. Alcohol: no. Sexually active: yes. Travel outside [place]: no. 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 * Medications: T aking Bisoprolol Fumarate 5 [...] *Please review and pick correct strength-formulation from Favoe options. If intended option is not shown, [...] 1 tab(s) orally once a day , Discontinued Triamcinolone Acetonide 0.5 % Ointment 1 manuel applied topically 2 times a day prn , Notes to Pharmacist: prn, Discontinued Fluticasone Propionate 0.05 % Cream 1 manuel applied topically 2 times a day , Notes to Pharmacist: prn, Discontinued Naproxen 500 MG Tablet 1 tab(s) orally 2 times a day (as needed) , Medication List reviewed and reconciled with the patient * Allergies: N iacin. Objective: * Vitals: N urse: KJ, Pain: 0, Temp: 97.9, RR: 18, HR: 76, BP: 120/62, Ht: 5 ft 6.75 in, Wt: 166, BMI:26.19. * Examination: G eneral Examination: General P leasant and Cooperative, NAD on RA,. Heart: R egular Rate and Rhythm, no murmur, rubs or gallops. Lungs: L CTAB, No wheezes, crackles or rhonchi, Good air movement,. Abdomen: S oft, NTND, BSNA, No organomegaly or peritoneal signs.. Psych N ormal Mood/Affect. Assessment: * Assessment: 1. T ype 2 diabetes mellitus with diabetic neuropathy, without long-term current use of insulin - E11.40 (Primary) 2 . C hronic kidney disease, stage 3b - N18.32 ?3. H istory of breast cancer - Z85.3 4 . V ertigo - R42 Plan: * Treatment: 2. C hronic kidney disease, stage 3b Notes: Stable. Good urine output, UAC and labs reviewed 3. H istory of breast cancer Notes: Follows with surgeon. No evidence of recurrence. 4. V ertigo Start Meclizine HCl Tablet, 25 MG, 1 tablet as needed, Orally, every 12 hrs As needed, 10 days, 20 Tablet, Refills 1. Notes: Will refill meclizine. Hopefully cerumen impaction will of help symptomatology. * Follow Up: p rn * * Sign off status: Completed true * Provider: Min Caldwell MD Date: 0 11/14/2024 Generated for Sobeida rosenberg/Jena/Jostinitting on: 0 12/30/2024 07:42 AM EDT History and Physical Notes * HPI (History of Present Illness) Category Sub-Category Detail Notes Category Not es gen Presents today for 3-month follow-up. In the interim, had cerumen removal from the right ear with ENT that has helped her quite a bit. They have scheduled her back for recurrent cerumen inspections. She would like a refill of meclizine for rare vertigo symptoms. Otherwise feels pretty well, getting around well, no recent falls. Good functional status. Labs done 3 months ago and were under good control. Examination Category Sub-Category Detail Notes Category Not es General Examination Heart: Regular Rate and Rhythm, no murmur, rubs or gallops Lungs: LCTAB, No wheezes, c rackles or rhonchi, Good air movement, Abdomen: Soft, NTND, BSNA, No organomegaly or peritoneal signs. General Pleasant and Coopera tive, NAD on RA, Psych Normal Mood/Affect
--- OUTSIDE RECORDS SUMMARY | 2024-12-30 07:43 | XMS_ITS | Clinical Summary ---
Author Organization [facility] Address [address] [place] [address] Care Team Providers Care Editor House Organ Name Role Phone Krishan Caldwell MD Primary Care Provider [phone] Allergies No known active allergies Social History [...] 2024 INFLUENZA VACCINE 03/01/2025 Insurance Care Teams Editor House Organ Relationship Specialty Start Date End Date Krishan Caldwell MD [address] [facility] [address] [place] [address] PCP - General Adolescent Medicine 04/26/24
--- OUTSIDE RECORDS SUMMARY | 2024-12-30 07:43 | XMS_ITS | Patient Health Record ---
Author Organization [facility] Address [address] [place] [address] Care Team Providers Care Automotive Welder Name Role Phone Krishan Caldwell Primary Care Provider Migration, Provider Unavailable Unavailable Allergies Allergen (clinical drug ingredient) Drug/Non Drug Allergy documented on EMR Reaction Allergy Type Onset Date Status niacin Niacin Unknown Drug Allergy Active Results Component Value Reference Range Notes M-Lipid Panel Reviewed date:08/01/2024 05:08:21 PM Interpretation: Performing Lab: Notes/Report: Patient Fasting? N TRIG 93 30-150 mg/dl CHOL 108 140-200 mg/dl DLDL 52.45 100-129 mg/dL VLDL 19 0-40 mg/dL HDL 38 40-60 mg/dl CHLHDL 2.8 1-3.5 M-Lipid Panel Reviewed date:05/05/2024 12:28:12 PM Interpretation: Performing Lab: Notes/Report: Patient Fasting? N TRIG 87 30-150 mg/dl CHOL 111 140-200 mg/dl DLDL 56.57 100-129 mg/dL VLDL 17 0-40 mg/dL HDL 42 40-60 mg/dl CHLHDL 2.6 1-3.5 M-Thyroid Panel Reviewed date:05/05/2024 12:28:12 PM [...] recommended. MICROALB 15.500 0-16.7 mg/L MALBCREAT 17.2 Ultrasound: Transvaginal Reviewed date:08/12/2024 06:48:18 AM Interpretation: Performing Lab: Notes/Report: M-Hemoglobin A1C Reviewed date:08/01/2024 05:08:21 PM Interpretation: Performing Lab: Notes/Report: HGBA1C 5.5 4.0-6.0 % < 6% Non-Diabetic Level < 7% Controlled Diabetic Level > 8% Poorly Controlled Diabetic Level M-Comprehensive Metabolic Pa luli Reviewed date:05/05/2024 12:28:12 [...] AGRATIO 2.0 1.1-1.8 ALP 136 38-126 U/L M-Complete Blood Count Auto Diff Reviewed date:05/05/2024 [...] K/mm3 M-Complete Blood Count Auto Diff Reviewed date:08/01/2024 [...] 0.3 0.0-0.4 K/mm3 BA# 0.1 0-0.2 K/mm3 Medications Medication SIG (Take, Route, Frequency, Duration) [...] review and pick correct strength-formulat ion from [place] options. If intended option is not shown, [...] Peripheral circulatory disorder associated with diabetes mellitus (745070524) Type 2 diabetes mellitus with other circulatory complications (E11.59) Active confirmed Problem Polyneuropathy (27805833) Polyneuropathy in diseases classified elsewhere (G63) Active confirmed Problem Atherosclerotic heart disease of [place] coronary artery without angina pectoris (925856021484574) Atherosclerotic heart disease of [place] coronary artery without angina pectoris (I25.10) Active confirmed Problem Arthritis (7578922) Arthritis (M19.90) Active confirmed Problem Hyperlipidemia (79457610) Hyperlipemia, idiopathic familial (E78.5) Active confirmed Problem Vitamin B12 deficiency (non anemic) (99592662) B12 deficiency (E53.8) Active confirmed Problem Essential hypertension (49064374) Hypertension, essential (I10) Active confirmed Problem Acquired hypothyroidism (473461121) Acquired hypothyroidism (E03.9) Active confirmed Problem Personal history of primary malignant neoplasm of breast (249518977) History of breast cancer (Z85.3) Active confirmed Problem Postmenopausal bleeding (02700573) Post-menopausal bleeding (N95.0) Active confirmed Problem Diabetic peripheral neuropathy associated with type 2 diabetes mellitus (4943374207709) Type 2 diabetes mellitus with diabetic neuropathy, without long-term current use of insulin (E11.40) Active confirmed Problem Peripheral venous insufficiency (86375199) Stasis dermatitis of both legs (I87.2) Active confirmed Problem Chronic kidney disease stage 3B (disorder) (986044871) Chronic kidney disease, stage 3b (N18.32) Active confirmed Vital Signs Heart Rate 76 /min 11/14/2024 Temperature 97.9 degrees Fahrenheit 11/14/2024 Blood pressure diastolic 62 mm Hg 11/14/2024 Height 5 ft 6.75 in in 11/14/2024 Blood pressure systolic 120 mm Hg 11/14/2024 Weight 166 lbs 11/14/2024 BMI 26.19 kg/m2 11/14/2024 Encounters Encounter Location Date Provider Diagnosis [facility] [address] [place] [address] [place] [address] 09/03/2024 Provider Migration [facility] [address] [place] [address] [place] [address] 02/17/2024 Krishan Caldwell Hypertension, essent ial I10 ; Acquired hypothyroidism E03.9 ; Idiopathic neuropathy G60.9 ; Type 2 diabetes mellitus with diabetic neuropathy, without long-term current use of insulin E11.40 ; Primary osteoarthritis, right hand M19.041 and Primary osteoarthritis, left hand M19.042 [facility] [address] [place] [address] [place] [address] 05/04/2024 Krishan Caldwell Hyperlipemia, idiopathic familial E78.5 ; Acquired hypothyroidism E03.9 ; Stage 3a chronic kidney disease (CKD) N18.31 ; History of breast cancer Z85.3 and Rhinitis, unspecified type J31.0 [facility] [address] [place] [address] [place] [address] 08/01/2024 Krishan Caldwell Type 2 diabetes mellitus with diabetic neuropathy, without long-term current use of insulin E11.40 ; Atherosclerotic heart disease of [place] coronary artery without angina pectoris I25.10 ; Chronic kidney disease, stage 3b N18.32 ; High risk medication use Z79.899 ; Acquired hypothyroidism E03.9 ; Adenocarcinoma of right breast C50.911 ; Arthritis M19.90 ; Hypertension, essential I10 and Healthcare maintenance Z00.00 [facility] [address] [place] [address] [place] [address] 08/10/2024 Krishan Caldwell Post-menopausal bleeding N95.0 [facility] [address] [place] [address] [place] [address] 10/31/2024 Krishan Caldwell Impacted cerumen of right ear H61.21 [facility] [address] [place] [address] 11/14/2024 Krishan Caldwell Type 2 diabetes mellitus with diabetic neuropathy, without long-term current use of insulin E11.40 ; Chronic kidney disease, stage 3b N18.32 ; History of breast cancer Z85.3 and Vertigo R42 [facility] [address] [place] [address] 05/10/2024 Krishan Besson [facility] [address] [place] [address] 08/01/2024 Krishan Besson [facility] [address] [place] [address] 08/11/2024 Krishan Besson [facility] [address] [place] [address] 11/14/2024 Krishan Besson [facility] [address] [place] [address] 12/16/2024 Krishan Besson [facility] [address] [place] [address] 12/19/2024 Krishanheidi Caldwell Assessments Encounter Date Diagnosis (ICD Code) Assessment [...] Good urine output, UAC and labs reviewed 10/31/2024 Impacted cerumen of right ear (ICD-10 - H61.21) Follow-up with ENT for cerumen impaction removal 08/10/2024 Post-menopausal bleeding (ICD-10 - N95.0) Ongoing for last 2 weeks. No associated orthostatic hypotension, dizziness. Does have history of breast cancer and was on tamoxifen from 5123-7858. Will order TVUS to evaluate for causes of post-menopausal bleeding. 08/01/2024 Atherosclerotic heart disease of [place] coronary artery without angina pectoris (ICD-10 - I25.10) No current cardiac symptoms 08/01/2024 Type 2 diabetes mellitus with diabetic neuropathy, without long-term current use of insulin (ICD-10 - E11.40) Overall doing well, on SGLT2 inhibitor. No changes in plan. Asymptomatic from hyper or hypoglycemia standpoint. Will check labs today including microalbumin testing 05/04/2024 Hyperlipemia, 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 I will review these personally 05/04/2024 Acquired hypothyroidism (ICD-10 - E03.9) Reviewed TSH and T4 levels 02/17/2024 Hypertension, essential (ICD-10 - I10) Blood pressures under good control. No changes no plan 02/17/2024 Acquired hypothyroidism (ICD-10 - E03.9) Clinically euthyroid. TSH levels normal at last visit 05/04/2024 Stage 3a chronic kidney disease (CKD) (ICD-10 - N18.31) 02/17/2024 Idiopathic neuropathy (ICD-10 - G60.9) Remains on gabapentin. No changes in plan. Seems to have fairly good symptom control 08/01/2024 Chronic kidney disease, stage 3b (ICD-10 - N18.32) 11/14/2024 History of breast cancer (ICD-10 - Z85.3) Follows with surgeon. No evidence of recurrence. 11/14/2024 Vertigo (ICD-10 - R42) Will refill meclizine. Hopefully cerumen impaction will of help symptomatology. 08/01/2024 High risk medication use (ICD-10 - Z79.899) Has a history of unintentional medicine diversion with gabapentin in the past. Will check drug screen given her 's use of hydrocodone 02/17/2024 Type 2 diabetes mellitus with diabetic neuropathy, without long-term current use of insulin (ICD-10 - E11.40) No changes 05/04/2024 History of breast cancer (ICD-10 - Z85.3) Will prescribe diazepam for her to use on arrival to MRI scanner for situational anxiety 02/17/2024 Primary osteoarthritis, right hand (ICD-10 - [...] or pain. She will let me know. 05/04/2024 Rhinitis, unspecified type (ICD-10 - J31.0) Discussed with her and daughter that antibiotics were not appropriate to prevent infections. Discussed hydration, vitamin C, Mucinex if she has some drainage. Discussed signs and symptoms of needing antibiotic and when to call back. 08/01/2024 Acquired hypothyroidism (ICD-10 - E03.9) T4 normal last visit. No change 08/01/2024 Adenocarcinoma of right breast (ICD-10 - C50.911) Follows with surgery and oncology. No changes 02/17/2024 Primary osteoarthritis, left hand (ICD-10 - M19.042) 08/01/2024 Arthritis (ICD-10 - M19.90) On Tylenol. [...] 05/16/2009 Physical Therapy 02/21/2015 Mammogram : Bilateral 05/12/2016 Mammogram : Bilateral 09/06/2015 MRI : Hand, Right 07/27/2015 H-LIPID PANEL 12/03/2009 H-LIPID PANEL 11/06/2010 C-CBC 04/08/2010 C-CBC 06/18/2009 C-CBC 03/15/2012 C-CBC 02/09/2017 C-CMP 06/18/2009 C-CMP 03/15/2012 C-CMP 02/09/2017 C-CMP 04/08/2010 C-LIPID PANEL 04/08/2010 C-LIPID PANEL 03/15/2012 C-LIPID PANEL 06/18/2009 C-LIPID PANEL 02/09/2017 C-TSH 02/09/2017 C-TSH 06/18/2009 C-TSH 04/08/2010 C-URINE CULTURE 11/12/2009 C-MISC CULTURE 01/26/2012 Uric Acid, Serum 08/05/2012 M-Peripheral Smear Review 12/05/2020 M-Vitamin B12 12/05/2020 M-Iron and TIBC 12/05/2020 M-Microalb/Creat Ratio, Randm Ur 025 Future Test Test Name Order Date C-HGBA1C 12/29/2008 H-TSH 11/07/2013 Next Appt Details Provider Name:Krishan Caldwell, 02/15/2025 09:30:00 AM, [address], [place], [address], Insurance Providers Payer Name Payer Address Payer Phone Subscriber Number Group Number Insured Name Patient Relationship to Insured Coverage Start Date Coverage End Date [employer] [address] [address] [place] [address] [id number] Lavinia Iyer Self - patient is the [...] CATARACT- 05/10/24, 06/14/24 Hospitalization History Reason Date(Month/Year) [facility] 06/2023
[2024-12-30 08:18] VITALS: BP 110/62; PULSE 74; RESP 18; TEMP 36.3; O2SAT 95; BMI 27.1
--- NOTE | 2024-12-30 09:55 | HMH.PROCNOTE ---
[facility] Procedure Note Date: 12/30/24 Time: 08:00 Procedure Note:: Date: 12/30/2024 Time: 0800 Procedure: Tilt table test Indication: Dizziness Procedure summary: Patient was brought to preop for tilt table testing. Baseline systolic blood pressure ranged from 143-157/73-76. Baseline heart rate 74-76. Baseline oxygen saturation 95%. Baseline EKG was normal sinus rhythm with rare PAC. Patient was tilted at 70 degrees per protocol for 30 minutes. Blood pressure dropped from 142/75 to 122/74. Heart rate remained in the 70s and 80s throughout test. Patient reports some dizziness during test. Afterwards patient returned to baseline and reported she felt good prior to being discharged. Complications:None
== END 2024-12-30 23:59 | disposition home or self-care (01) ==
LOC: RT 01-02 09:03
PROVIDERS: PCP Internal Medicine Adolescent Medicine; Visit Provider Specialist
DX: R42 Dizziness and giddiness (principal); R53.1 Weakness; Z88.8 Allergy status to other drugs, medicaments and biological substances; Z79.890 Hormone replacement therapy; Z79.02 Long term (current) use of antithrombotics/antiplatelets; Z79.82 Long term (current) use of aspirin
CPT/HCPCS: 93660

== ENCOUNTER 2025-01-06 07:48 | Outpatient (CLI) | payer OTHER, SELFPAY ==
--- OUTSIDE RECORDS SUMMARY | 2024-09-03 17:30 | XMS_ITS ---
Author Organization [facility] Address [address] [place] [address] Care Team Providers Care Hydrogen Operator Name Role Phone Krishan Caldwell Primary Care Provider Migration, Provider Unavailable Unavailable Allergies Allergen (clinical drug ingredient) Drug/Non Drug Allergy documented on EMR Reaction Allergy Type Onset Date Status niacin Niacin Unknown Drug Allergy Active REASON FOR VISIT [facility] To [facility] Conversion Encounter Medications Medication SIG (Take, [...] review and pick correct strength-formulat ion from [employer] options. If intended option is not shown, [...] Active Encounters Encounter Location Date Provider Diagnosis [facility] [address] [facility] [address] [facility] [address] [place] [address] 09/03/2024 Provider Migration Plan Of Treatment Next Appt Details Provider Name:Krishan Caldwell, 01/16/2025 10:45:00 AM, [address] [facility], [address], [place], [address], Provider Name:Krishan Caldwell, 02/15/2025 09:30:00 AM, [address] [facility] [address] [facility], [address], [place], [address], Progress Notes * Lavinia IYER ADOB:1950 (74 yo F)Acc No.[id number]:09/03/2024 Patient: Lavinia FERRELL Provider: Cindy Rolle :1950 A ge:73 Y S ex:Female Date:09/03/2024 Address:[address] [place], [id number] Pcp:Krishan Caldwell Subjective: * Chief Complaints: * [address] [facility] [address] [facility] En[facility]. * Medical History: * Medications: [...] *Please review and pick correct [facility] options. If intended option is not shown, [...] Electronic signature of Prov ider Migration on 01/06/2025 at 07:49 AM EDT Sign off status: Pending * Provider: Cindy moore Migration Date: 09/03/2024 Generated for Sobeida rosenberg/Jena/Wilbur on: 01/06/2025 07:49 AM EDT
--- OUTSIDE RECORDS SUMMARY | 2024-11-14 05:00 | XMS_ITS ---
Author Organization [facility] Address [address] [place] [address] Care Team Providers Care Edger Machine Setter Name Role Phone Paulette Krishan Primary Care [...] review and pick correct strength-formulat ion from AlwaySupport options. If intended option is not shown, [...] Diagnosis [facility] [address] [facility] [address] [place] [address] 11/14/2024 Krishan Caldwell Type 2 diabetes mellitus [...] A1c under good control at last visit. [facility] reviewed. No changes in plan, has optometry [...] Follow Up: prn, Reason: Provider Name:Krishan Caldwell, 01/16/2025 10:45:00 AM, [address] [facility], [facility] [address], [place], [address], Provider Name:Krishan Caldwell, 02/15/2025 09:30:00 AM, [address] [facility], [address], [place], [address], Progress Notes * Lavinia IYER ADOB:1950 (74 yo F)Acc No.[id number]:11/14/2024 Progress Notes Patient: Ramakrishna Lavinia RAINEY Provider: Min Caldwell MD :1950 A ge:74 Y S ex:Female Date:11/14/2024 Address:[address] [place] [address] [id number] Subjective: * Chief Complaints: * 1 . [...] M aternal Grand Mother: . Siblings: alive. Sera cisneros: alive. 1 brother(s) . 2 daughter(s) - [...] *Please review and pick correct strength-formulation from AlwaySupport options. If intended option is not shown, [...] MD Date: 0 11/14/2024 Generated for Sobeida rosenberg/Jena/eTransmitting on: 0 01/06/2025 07:50 AM EDT History and Physical Notes * [...]
--- OUTSIDE RECORDS SUMMARY | 2025-01-06 07:50 | XMS_ITS | Clinical Summary ---
Author Organization [facility] Address [address] [place] [address] Care Team Providers Care Derrick Man Name Role Phone Krishan Caldwell MD Primary Care Provider [phone] Allergies No known active allergies Social History [...] (2 - Tdap) 08/05/2006 08/05/1996 COVID-19 Vaccine (2023-2 5 season) 2024 12/04/2020, 11/13/2020 RSV Vaccine - Adults (1 - 1- dose 75+ series) 2024 INFLUENZA VACCINE 03/01/2025 MAMMOGRAM Discontinued 03/08/2024, 01/31, 07/13/2023, Additional history exists Procedures Procedure Name Priority Date/Time Associated Diagnosis Comments MAMMO OUTSIDE FILMS Routine 03/08/2024 1 2:00 AM EDT H/O mammogram from Last 3 Months or Most Recently Relevant to Health Maintenance Results * MAMMO Outside Films (03/08/2024 12:00 AM EDT) Narrative SYSTEMGENERATED, DOCUMENTATION - 04/11/2024 9:24 AM EST This procedure was auto-finalized with no dictation required. Mark Umana MD IMG MAMMOGRAPHY ORDERABLES Final Result from Last 3 Months or Most Recently Relevant to Health Maintenance Insurance Care Teams Derrick Man Relationship Specialty Start Date End Date Krishan Caldwell MD [address] [facility] [address] [place] [address] PCP - General Adolescent Medicine 04/26/24
--- OUTSIDE RECORDS SUMMARY | 2025-01-06 07:50 | XMS_ITS | Patient Health Record ---
Author Organization [facility] Address [address] [place] [address] Care Team Providers Care Head Of It Name Role Phone Krishan Caldwell Primary Care Provider [phone] Migration, Provider Unavailable Unavailable Allergies Allergen (clinical [...] 0.3 0.0-0.4 K/mm3 BA# 0.1 0-0.2 K/mm3 H-MALBCREA Reviewed date:08/01/2024 05:08:21 PM Interpretation: Performing Lab: Notes/Report: Units: mg/g creat Normal: 0 - 29 Moderately Increased: 30 - 300 Severely Increased: >300 UCREAT 90 Not Estab. mg/dL Random urine reference range not established. 24 hour urine samples recommended. MICROALB 15.500 0-16.7 mg/L MALBCREAT 17.2 M-Drug Screen,Urine Reviewed date:08/01/2024 05:08:21 PM Interpretation: Performing Lab: Notes/Report: UOPIS Negative <300 ng/ml UBARBS Negative <200 ng/ml UPCPS Negative <25 ng/ml UAMPS Negative <1000 ng/ml UMETHS Negative <300 ng/ml UBENZS Negative <200 ng/ml UCOCS Negative <300 ng/ml UTHCS Negative <50 ng/ml M-Hemoglobin A1C Reviewed date:08/01/2024 05:08:21 PM Interpretation: Performing Lab: Notes/Report: HGBA1C 5.5 4.0-6.0 % < 6% Non-Diabetic Level < 7% Controlled Diabetic Level > 8% Poorly Controlled Diabetic Level M-Lipid Panel Reviewed date:08/01/2024 05:08:21 PM Interpretation: Performing Lab: Notes/Report: Patient Fasting? N TRIG 93 30-150 mg/dl CHOL 108 140-200 mg/dl DLDL 52.45 100-129 mg/dL VLDL 19 0-40 mg/dL HDL 38 40-60 mg/dl CHLHDL 2.8 1-3.5 M-Complete Blood Count Auto Diff Reviewed date:05/05/2024 [...] AGRATIO 2.0 1.1-1.8 ALP 136 38-126 U/L M-Lipid Panel Reviewed date:05/05/2024 12:28:12 PM Interpretation: Performing Lab: Notes/Report: Patient Fasting? N TRIG 87 30-150 mg/dl CHOL 111 140-200 mg/dl DLDL 56.57 100-129 mg/dL VLDL 17 0-40 mg/dL HDL 42 40-60 mg/dl CHLHDL 2.6 1-3.5 M-Thyroid Panel Reviewed date:05/05/2024 12:28:12 PM Interpretation: Performing Lab: Notes/Report: FTI 3.4 5.93-13.13 ug/dL T4 9.5 5.53-11.0 ug/dl T3U 36 23.5-40.5 % TSH < 0.02 0.465-4.68 uIU/mL Medications Medication SIG (Take, Route, Frequency, Duration) [...] review and pick correct strength-formulat ion from Test[employer] options. 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 (997544426252007) Atherosclerotic heart disease of [place] coronary artery without angina pectoris (I25.10) Active confirmed Problem Arthritis (9668266) Arthritis (M19.90) Active confirmed Problem Hyperlipidemia (54957876) Hyperlipemia, idiopathic familial (E78.5) Active confirmed Problem Vitamin B12 deficiency (non anemic) (52666001) B12 deficiency (E53.8) Active confirmed Problem Essential hypertension (28315229) Hypertension, essential (I10) Active confirmed Problem Acquired hypothyroidism (788496135) Acquired hypothyroidism (E03.9) Active confirmed Problem Personal history of primary malignant neoplasm of breast (833205874) History of breast cancer (Z85.3) Active confirmed Problem Postmenopausal bleeding (11038887) Post-menopausal bleeding (N95.0) Active confirmed Problem Diabetic peripheral neuropathy associated with type 2 diabetes mellitus (8562427879279) Type 2 diabetes mellitus with diabetic neuropathy, without long-term current use of insulin (E11.40) Active confirmed Problem Stasis dermatitis (disorder) (22172188) Stasis dermatitis of both legs (I87.2) Active confirmed Problem Chronic kidney disease stage 3B (disorder) (903039956) Chronic kidney disease, stage 3b (N18.32) Active confirmed Vital Signs Heart Rate 76 /min 11/14/2024 Temperature 97.9 degrees Fahrenheit 11/14/2024 Blood pressure diastolic 62 mm Hg 11/14/2024 Height 5 ft 6.75 in in 11/14/2024 Blood pressure systolic 120 mm Hg 11/14/2024 Weight 166 lbs 11/14/2024 BMI 26.19 kg/m2 11/14/2024 Encounters Encounter Location Date Provider Diagnosis [facility] [address] [place] [address] 09/03/2024 Provider Migration [facility] [address] [place] [address] 02/17/2024 Krishan Caldwell Hypertension, essent ial I10 ; Acquired hypothyroidism E03.9 ; Idiopathic neuropathy G60.9 ; Type 2 diabetes mellitus with diabetic neuropathy, without long-term current use of insulin E11.40 ; Primary osteoarthritis, right hand M19.041 and Primary osteoarthritis, left hand M19.042 [facility] [address] [place] [address] 05/04/2024 Krishan Caldwell Hyperlipemia, idiopathic familial E78.5 ; Acquired hypothyroidism E03.9 ; Stage 3a chronic kidney disease (CKD) N18.31 ; History of breast cancer Z85.3 and Rhinitis, unspecified type J31.0 [facility] [address] [place] [address] 08/01/2024 Krishan Caldwell Type 2 diabetes mellitus with diabetic neuropathy, without long-term current use of insulin E11.40 ; Atherosclerotic heart disease of iliam[place] coronary artery without angina pectoris I25.10 ; Chronic kidney disease, stage 3b N18.32 ; High risk medication use Z79.899 ; Acquired hypothyroidism E03.9 ; Adenocarcinoma of right breast C50.911 ; Arthritis M19.90 ; Hypertension, essential I10 and Healthcare maintenance Z00.00 [facility] [address] [place] [address] 08/10/2024 Krishan Caldwell Post-menopausal bleeding N95.0 [facility] [address] [place] [address] 10/31/2024 Krishan Caldwell Impacted cerumen of right ear H61.21 [facility] [address] [place] [address] 11/14/2024 Krishan Caldwell Type 2 diabetes mellitus with diabetic neuropathy, without long-term current use of insulin E11.40 ; Chronic kidney disease, stage 3b N18.32 ; History of breast cancer Z85.3 and Vertigo R42 [facility] [address] [place] [address] 05/10/2024 Krishan Besson [facility] [address] [place] [address] 08/01/2024 Krishan Besson [facility] [address] [place] [address] 08/11/2024 Krishan Besson [facility] [address] [place] [address] 11/14/2024 Krishan Besson [facility] [address] [place] [address] 12/16/2024 Krishan Besson [facility] [address] [place] [address] 12/19/2024 Krishan Besson [facility] [address] [place] [address] 01/02/2025 Krishan Besson [facility] [address] [place] [address] 01/03/2025 Krishanheidi Caldwell Assessments Encounter Date Diagnosis (ICD Code) Assessment Notes Treatment Notes Treatment Clinical Notes Section Notes 02/17/2024 Hypertension, essential (ICD-10 - I10) Blood pressures under good control. No changes no plan 02/17/2024 Acquired hypothyroidism (ICD-10 - E03.9) Clinically euthyroid. TSH levels normal at last visit 05/04/2024 Hyperlipemia, 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 I will review these personally 05/04/2024 Acquired hypothyroidism (ICD-10 - E03.9) Reviewed TSH and T4 levels 11/14/2024 Type 2 diabetes mellitus with diabetic [...] breast cancer and was on tamoxifen from [id number]. Will order TVUS to evaluate for causes of post-menopausal bleeding. 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 No changes in plan. Asymptomatic from hyper or hypoglycemia standpoint. Will check labs today including microalbumin testing 08/01/2024 Chronic kidney disease, stage 3b (ICD-10 - N18.32) 11/14/2024 History of breast cancer (ICD-10 - Z85.3) Follows with surgeon. No evidence of recurrence. 05/04/2024 Stage 3a chronic kidney disease (CKD) (ICD-10 - N18.31) 02/17/2024 Idiopathic neuropathy (ICD-10 - G60.9) Remains on gabapentin. No changes in plan. Seems to have fairly good symptom control 02/17/2024 Type 2 diabetes mellitus with diabetic neuropathy, without long-term current use of insulin (ICD-10 - E11.40) No changes 05/04/2024 History of breast cancer (ICD-10 - Z85.3) Will prescribe diazepam for her to use on arrival to MRI scanner for situational anxiety 11/14/2024 Vertigo (ICD-10 - R42) Will refill meclizine. Hopefully cerumen impaction will of help symptomatology. 08/01/2024 High risk medication use (ICD-10 - Z79.899) Has a history of unintentional medicine diversion with gabapentin in the past. Will check drug screen given her 's use of hydrocodone 08/01/2024 Acquired hypothyroidism (ICD-10 - E03.9) T4 normal last visit. No change 05/04/2024 Rhinitis, unspecified type (ICD-10 - J31.0) Discussed with her and daughter that antibiotics were not appropriate to prevent infections. Discussed hydration, vitamin C, Mucinex if she has some drainage. Discussed signs and symptoms of needing antibiotic and when to call back. 02/17/2024 Primary osteoarthritis, right hand (ICD-10 - [...] or pain. She will let me know. 02/17/2024 Primary osteoarthritis, left hand (ICD-10 - [...] 12/03/2009 H-LIPID PANEL 11/06/2010 C-CBC 04/08/2010 C-CBC 03/15/2012 C-CBC 02/09/2017 C-CBC 06/18/2009 C-CMP 06/18/2009 C-CMP 03/15/2012 C-CMP 02/09/2017 C-CMP 04/08/2010 C-LIPID PANEL 04/08/2010 C-LIPID PANEL 03/15/2012 C-LIPID PANEL 02/09/2017 C-LIPID PANEL 06/18/2009 C-TSH 06/18/2009 C-TSH 02/09/2017 C-TSH 04/08/2010 C-URINE CULTURE 11/12/2009 C-MISC CULTURE 01/26/2012 Uric Acid, Serum 08/05/2012 M-Peripheral Smear Review 12/05/2020 M-Vitamin B12 12/05/2020 M-Iron and TIBC 12/05/2020 M-Microalb/Creat Ratio, Randm Ur 025 Future Test Test Name Order Date C-HGBA1C 12/29/2008 H-TSH 11/07/2013 Next Appt Details Provider Name:Krishan Cheng Paulette, 01/16/2025 10:45:00 AM, [address] [facility], [address], [place], [address], Provider Name:Krishan Cheng Paulette, 02/15/2025 09:30:00 AM, [address] [facility], [address], [place], [address], Insurance Providers Payer Name Payer Address Payer Phone Subscriber Number Group Number Insured Name Patient Relationship to Insured Coverage Start Date Coverage End Date [employer] [address] [address] [place] [address] [id number] Lavinia Iyer Self - patient is the [...] CATARACT- 05/10/24, 06/14/24 Hospitalization History Reason Date(Month/Year) [facility] 06/2023
--- NOTE | 2025-01-06 08:00 | MR_ITS ---
FINAL REPORT TECHNIQUE: Multiplanar MR, without and with contrast administration CLINICAL HISTORY: Dizzy, off balance, falling 6 months FINDINGS: Diffusion sequences show no signal abnormalities to indicate acute infarct. The midline structures are intact. There is no Chiari malformation. The brain parenchyma is homogeneous. There is a small focus of abnormal signal in the deep white matter of the left frontal lobe, nonspecific. There are few tiny scattered foci of abnormal signal are seen throughout the deep white matter bilaterally. Ventricles are normal. No edema or hemorrhage is seen. Major vessel flow-voids are intact. The 7th and 8th nerve root complexes are intact. The paranasal sinuses are well aerated. Following contrast administration, there is no mass or abnormal parenchymal enhancement. IMPRESSION: Minimal changes of chronic microvascular ischemia. Reviewed, Interpreted and Dictated by Andi Randolph MD Transcribed by Hansa Jones Authenticated and [facility]
[2025-01-06] MEDS: GADOTERIDOL INJ 20ML SYRINGE 15 ML IV (08:49)
[2025-01-06] MEDS: SODIUM CHLORIDE 0.9% 10ML SYR (RAD ONLY) 10 ML IV (08:49)
== END 2025-01-06 23:59 | disposition home or self-care (01) ==
LOC: RAD 07:49
PROVIDERS: PCP Internal Medicine Adolescent Medicine; Visit Provider Specialist
DX: R90.89 Other abnormal findings on diagnostic imaging of central nervous system (principal); R42 Dizziness and giddiness; R53.1 Weakness; R29.90 Unspecified symptoms and signs involving the nervous system; Z85.3 Personal history of malignant neoplasm of breast
CPT/HCPCS: 70553; A9576

== ENCOUNTER 2025-01-27 09:13 | Outpatient (CLI) | payer OTHER, SELFPAY ==
--- OUTSIDE RECORDS SUMMARY | 2024-09-03 17:30 | XMS_ITS ---
Author Organization [facility] Address [address] [place] [address] Care Team Providers Care Service Desk Technician Name Role Phone Krishan Caldwell Primary Care Provider Migration, Provider Unavailable Unavailable Allergies Allergen (clinical drug ingredient) Drug/Non Drug Allergy documented on EMR Reaction Allergy Type Onset Date Status niacin Niacin Unknown Drug Allergy Active REASON FOR VISIT [facility] To [facility] Conversion Encounter Medications Medication SIG (Take, Route, [...] review and pick correct strength-formulat ion from [employer] options. If intended option is not shown, [...] Active Encounters Encounter Location Date Provider Diagnosis [place] [facility] [address] [facility] [address] [place] [address] 09/03/2024 Provider Migration Plan Of Treatment Next Appt Details Provider Name:Krishan Caldwell, 02/15/2025 09:30:00 AM, [address], [address], [place], [address], Progress Notes * Lavinia IYER ADOB:1950 (74 yo F)Acc No.[id number]:09/03/2024 Patient: Ramakrishna Lavinia RAINEY Provider: Cindy moore Migration :1950 A ge:73 Y S ex:Female Date:09/03/2024 Address:[address] [place], [id number] Pcp:Krishan Caldwell Subjective: * Chief Complaints: * [...] *Please review and pick correct strength-formulation from [facility] options. If intended option is not shown, [...] Electronic signature of Prov ider Migration on 01/27/2025 at 09:16 AM EDT Sign off status: Pending * Provider: Cindy moore Migration Date: 0 09/03/2024 Generated for Sobeida rosenberg/Jena/Wilbur on: 01/27/2025 09:16 AM EDT
--- OUTSIDE RECORDS SUMMARY | 2025-01-16 06:45 | XMS_ITS ---
Author Organization [facility] Address [address] [facility] [address] [facility] [address] [place] [address] Care Team Providers Care Staffing Operations Manager Name Role Phone Krishan Caldwell Primary Care Provider [phone] REASON FOR VISIT med ck, thyroid Encounters Encounter Location Date Provider Diagnosis [facility] [address] [facility] [address] [place] [address] 01/16/2025 Krishan Caldwell Plan Of Treatment Next Appt Details Provider Name:Krishan Caldwell, 02/15/2025 09:30:00 AM, [facility] [address], [address], [place], [address], Progress Notes * Lavinia IYER ADOB:1950 (74 yo F)Acc No.[id number]:01/16/2025 Progress Notes Patient: Ramakrishna RAINEY Lavinia Quintana Provider: Min Caldwell MD :1950 A ge:74 Y S ex:Female Date:01/16/2025 Address:[id number] Subjective: * Chief Complaints: * 1 . Med ck, thyroid. * Medical History: Objective: * Vitals: Assessment: Plan: * Treatment: * * Electronic signature of Levy Caldwell MD FAAP on 01/27/2025 at 09:16 AM EDT Sign off status: Pending * Provider: Min Caldwell MD Date: 0 01/16/2025 Generated for Sobeida rosenberg/Jena/Wilbur on: 0 01/27/2025 09:16 AM EDT
--- OUTSIDE RECORDS SUMMARY | 2025-01-27 09:16 | XMS_ITS | Clinical Summary ---
Author Organization [facility] Address [address] [place] [address] Care Team Providers Care Ship Surveyor Name Role Phone Krisahn Caldwell MD Primary Care Provider [phone] Allergies No known active allergies Social History [...] Most Recently Relevant to [place] [address] Care Teams Ship Surveyor Relationship Specialty Start Date End Date Krishan Caldwell MD [address] [facility] [address] [place] [address] PCP - General Adolescent Medicine 04/26/24
--- OUTSIDE RECORDS SUMMARY | 2025-01-27 09:17 | XMS_ITS | Patient Health Record ---
Author Organization [facility] Address [address] [place] [address] Care Team Providers Care Rehab/Pre Vocational Counselor Name Role Phone Krishan Caldwell Primary Care Provider Migration, Provider Unavailable Unavailable Allergies Allergen (clinical drug ingredient) Drug/Non Drug Allergy documented on EMR Reaction Allergy Type Onset Date Status niacin Niacin Unknown Drug Allergy Active Results Component Value Reference Range Notes M-Complete Blood Count Auto Diff Reviewed date:08/01/2024 [...] 0.3 0.0-0.4 K/mm3 BA# 0.1 0-0.2 K/mm3 Ultrasound: Transvaginal Reviewed date:08/12/2024 06:48:18 AM Interpretation: Performing Lab: Notes/Report: H-MAL[facility]CREA Reviewed date:08/01/2024 05:08:21 PM Interpretation: Performing [...] Negative <300 ng/ml UTHCS Negative <50 ng/ml M-Lipid Panel Reviewed date:08/01/2024 05:08:21 PM Interpretation: Performing Lab: Notes/Report: Patient Fasting? N TRIG 93 30-150 mg/dl CHOL 108 140-200 mg/dl DLDL 52.45 100-129 mg/dL VLDL 19 0-40 mg/dL HDL 38 40-60 mg/dl CHLHDL 2.8 1-3.5 M-Hemoglobin A1C Reviewed date:08/01/2024 05:08:21 PM Interpretation: Performing Lab: Notes/Report: HGBA1C 5.5 4.0-6.0 % < 6% Non-Diabetic Level < 7% Controlled Diabetic Level > 8% Poorly Controlled Diabetic Level M-Complete Blood Count Auto Diff Reviewed date:05/05/2024 [...] review and pick correct strength-formulat ion from [employer] options. If intended option is not shown, [...] Peripheral circulatory disorder associated with diabetes mellitus (860128678) Type 2 diabetes mellitus with other circulatory complications (E11.59) Active confirmed Problem Polyneuropathy (91739117) Polyneuropathy in diseases classified elsewhere (G63) Active confirmed Problem Atherosclerotic heart disease of [place] coronary artery without angina pectoris (283892277397521) Atherosclerotic heart disease of [place] coronary artery without angina pectoris (I25.10) Active confirmed Problem Arthritis (5634224) Arthritis (M19.90) Active confirmed Problem Hyperlipidemia (56645796) Hyperlipemia, idiopathic familial (E78.5) Active confirmed Problem Vitamin B12 deficiency (non anemic) (19700029) B12 deficiency (E53.8) Active confirmed Problem Essential hypertension (33605659) Hypertension, essential (I10) Active confirmed Problem Acquired hypothyroidism (615770375) Acquired hypothyroidism (E03.9) Active confirmed Problem Personal history of primary malignant neoplasm of breast (490473379) History of breast cancer (Z85.3) Active confirmed Problem Postmenopausal bleeding (75567525) Post-menopausal bleeding (N95.0) Active confirmed Problem Diabetic peripheral neuropathy associated with type 2 diabetes mellitus (2766266691495) Type 2 diabetes mellitus with diabetic neuropathy, without long-term current use of insulin (E11.40) Active confirmed Problem Stasis dermatitis (disorder) (01360549) Stasis dermatitis of both legs (I87.2) Active confirmed Problem Chronic kidney disease stage 3B (disorder) (478781322) Chronic kidney disease, stage 3b (N18.32) Active confirmed Vital Signs Heart Rate 76 /min 11/14/2024 Temperature 97.9 degrees Fahrenheit 11/14/2024 Blood pressure diastolic 62 mm Hg 11/14/2024 Height 5 ft 6.75 in in 11/14/2024 Blood pressure systolic 120 mm Hg 11/14/2024 Weight 166 lbs 11/14/2024 BMI 26.19 kg/m2 11/14/2024 Encounters Encounter Location Date Provider Diagnosis [facility] [address] [place] [address] 09/03/2024 Provider Migration [facility] [address] [place] [address] 02/17/2024 Krishan Caldwell Hypertension, essent ial I10 ; Acquired hypothyroidism E03.9 ; Idiopathic neuropathy G60.9 ; Type 2 diabetes mellitus with diabetic neuropathy, without long-term current use of insulin E11.40 ; Primary osteoarthritis, right hand M19.041 and Primary osteoarthritis, left hand M19.042 [facility] [address] [place] [address] 05/04/2024 Krishan Caldwell Hyperlipemia, idiopathic familial E78.5 ; Acquired hypothyroidism E03.9 ; Stage 3a chronic kidney disease (CKD) N18.31 ; History of breast cancer Z85.3 and Rhinitis, unspecified type J31.0 [facility] [address] [place] [address] 08/01/2024 Krishan Caldwell Type 2 diabetes mellitus with diabetic neuropathy, without long-term current use of insulin E11.40 ; Atherosclerotic heart disease of [place] coronary artery without angina pectoris I25.10 ; Chronic kidney disease, stage 3b N18.32 ; High risk medication use Z79.899 ; Acquired hypothyroidism E03.9 ; Adenocarcinoma of right breast C50.911 ; Arthritis M19.90 ; Hypertension, essential I10 and Healthcare maintenance Z00.00 [facility] [address] [place] [address] 08/10/2024 Krishan Caldwell Post-menopausal bleeding N95.0 [facility] [address] [place] [address] 10/31/2024 Krishan Caldwell Impacted cerumen of right ear H61.21 [facility] [address] [place] [address] 11/14/2024 Krishan Besson Type 2 diabetes mellitus with diabetic neuropathy, without long-term current use of insulin E11.40 ; Chronic kidney disease, stage 3b N18.32 ; History of breast cancer Z85.3 and Vertigo R42 [facility] [address] [place] [address] 05/10/2024 Krishan Besson [facility] [address] [place] [address] 08/01/2024 Krishan Besson [facility] [address] [place] [address] 08/11/2024 Krishan Besson [facility] [address] [place] [address] 11/14/2024 Krishan Besson [facility] [address] [place] [address] 12/16/2024 Krishan Besson [facility] [address] [place] [address] 12/19/2024 Krishan Besson [facility] [address] [place] [address] 01/02/2025 Krishan Besson [facility] [address] [place] [address] 01/03/2025 Krishan Besson [facility] [address] [place] [address] 01/26/2025 Krishan Besson Assessments Encounter Date Diagnosis (ICD Code) Assessment Notes Treatment Notes Treatment Clinical Notes Section Notes 02/17/2024 Hypertension, essential (ICD-10 - I10) Blood pressures under good control. No changes no plan 02/17/2024 Acquired hypothyroidism (ICD-10 - E03.9) Clinically euthyroid. TSH levels normal at last visit 08/01/2024 Type 2 diabetes mellitus with diabetic neuropathy, without long-term current use of insulin (ICD-10 - E11.40) Overall doing well, on SGLT2 inhibitor. No changes in plan. Asymptomatic from hyper or hypoglycemia standpoint. Will check labs today including microalbumin testing 08/01/2024 Atherosclerotic heart disease of [place] coronary artery without angina pectoris (ICD-10 - I25.10) No current cardiac symptoms 05/04/2024 Hyperlipemia, 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 I will review these personally 05/04/2024 Acquired hypothyroidism (ICD-10 - E03.9) Reviewed TSH and T4 levels 08/10/2024 Post-menopausal bleeding (ICD-10 - N95.0) Ongoing for last 2 weeks. No associated orthostatic hypotension, dizziness. Does have history of breast cancer and was on tamoxifen from 8720-2711. Will order TVUS to evaluate for causes of post-menopausal bleeding. 10/31/2024 Impacted cerumen of right ear (ICD-10 - H61.21) Follow-up with ENT for cerumen impaction removal 11/14/2024 Type 2 diabetes mellitus with diabetic [...] chronic kidney disease (CKD) (ICD-10 - N18.31) 08/01/2024 Chronic kidney disease, stage 3b (ICD-10 - N18.32) 02/17/2024 Idiopathic neuropathy (ICD-10 - G60.9) Remains on gabapentin. No changes in plan. Seems to have fairly good symptom control 02/17/2024 Type 2 diabetes mellitus with diabetic neuropathy, without long-term current use of insulin (ICD-10 - E11.40) No changes 08/01/2024 High risk medication use (ICD-10 - Z79.899) Has a history of unintentional medicine diversion with gabapentin in the past. Will check drug screen given her 's use of hydrocodone 05/04/2024 History of breast cancer (ICD-10 - Z85.3) Will prescribe diazepam for her to use on arrival to MRI scanner for situational anxiety 11/14/2024 Vertigo (ICD-10 - R42) Will refill meclizine. Hopefully cerumen impaction will of help symptomatology. 05/04/2024 Rhinitis, unspecified type (ICD-10 - J31.0) Discussed with her and daughter that antibiotics were not appropriate to prevent infections. Discussed hydration, vitamin C, Mucinex if she has some drainage. Discussed signs and symptoms of needing antibiotic and when to call back. 08/01/2024 Acquired hypothyroidism (ICD-10 - E03.9) T4 normal last visit. No change 02/17/2024 Primary osteoarthritis, right hand (ICD-10 - [...] 12/03/2009 H-LIPID PANEL 11/06/2010 C-CBC 06/18/2009 C-CBC 03/15/2012 C-CBC 02/09/2017 C-CBC 04/08/2010 C-CMP 02/09/2017 C-CMP 04/08/2010 C-CMP 03/15/2012 C-CMP 06/18/2009 C-LIPID PANEL 06/18/2009 C-LIPID PANEL 03/15/2012 C-LIPID PANEL 04/08/2010 C-LIPID PANEL 02/09/2017 C-TSH 02/09/2017 C-TSH 06/18/2009 C-TSH 04/08/2010 C-URINE CULTURE 11/12/2009 C-MISC CULTURE 01/26/2012 Uric Acid, Serum 08/05/2012 M-Peripheral Smear Review 12/05/2020 M-Vitamin B12 12/05/2020 M-Iron and TIBC 12/05/2020 M-Microalb/Creat Ratio, Randm Ur 025 Future Test Test Name Order Date C-HGBA1C 12/29/2008 H-TSH 11/07/2013 Next Appt Details Provider Name:Krishanheidi Caldwell, 02/15/2025 09:30:00 AM, [address] [place] [facility] [address] [facility], [address], [place], [address], Insurance Providers Payer Name Payer Address Payer Phone Subscriber Number Group Number Insured Name Patient Relationship to Insured Coverage Start Date Coverage End Date [employer] [address] [address] [place] [address] [id number] Lavinia Iyer Self - patient is the [...] 06/14/24 Hospitalization History Reason Date(Month/Year) [facility] [place] 06/2023
--- NOTE | 2025-01-27 09:30 | MR_ITS ---
FINAL REPORT CLINICAL HISTORY: Gait ataxia neck pain COMPARISON: None FINDINGS: Multi planar MR imaging was obtained of the cervical spine. There is abnormal decreased signal throughout the cervical discs. The vertebrae are of normal height. There is minimal spondylolisthesis of C3 on C4, C4 on C5, and C5 on C6. There is mild cord edema present at the C3-4 level. C2-C3: There is no evidence of significant disc bulge or protrusion. There is no significant facet hypertrophy. C3-C4: A large broad-based disc protrusion is present in the midline, with bilateral facet osteoarthropathy. Severe canal stenosis is present, best seen on image #22 of series 6, with mild spinal cord edema. C4-C5: There is a broad-based midline disc protrusion, with mild canal stenosis and mild bilateral neural foraminal narrowing. C5-C6: There is a broad-based midline disc protrusion, with mild canal stenosis and mild bilateral neural foraminal narrowing. C6-C7: A mild annular bulge is present with mild bilateral neural foraminal narrowing. C7-T1: There is no evidence of significant disc bulge or protrusion. There is no significant facet hypertrophy. IMPRESSION: Multilevel cervical degenerative change is present, most pronounced at the C3-4 level, where there is severe canal stenosis and mild cord edema. Mild canal stenosis is noted at the C4-5 and C5-6 levels. Recommend neurosurgical or orthopedic consultation for further evaluation. Reviewed, Interpreted and Dictated by Andi Randolph MD Transcribed by Elin Mckinney Authenticated and [facility]
== END 2025-01-27 23:59 | disposition home or self-care (01) ==
LOC: RAD 09:14
PROVIDERS: PCP Internal Medicine Adolescent Medicine; Visit Provider Specialist
DX: M47.812 Spondylosis without myelopathy or radiculopathy, cervical region (principal); M48.02 Spinal stenosis, cervical region; G95.19 Other vascular myelopathies; R26.0 Ataxic gait
CPT/HCPCS: 72141

== ENCOUNTER 2025-02-08 09:46 | Outpatient (CLI) | payer OTHER, SELFPAY ==
--- OUTSIDE RECORDS SUMMARY | 2024-09-03 17:30 | XMS_ITS ---
Author Organization [facility] Address [address] [place] [address] Care Team Providers Care Town Administrator Name Role Phone Krishan Caldwell Primary Care Provider [phone] Migration, Provider Unavailable Unavailable Allergies Allergen (clinical drug ingredient) Drug/Non Drug Allergy documented on EMR Reaction Allergy Type Onset Date Status niacin Niacin Unknown Drug Allergy Active REASON FOR VISIT [facility] To [facility] [...] review and pick correct strength-formulat ion from [employer] options. If intended option is not shown, [...] Active Encounters Encounter Location Date Provider Diagnosis [facility] [address] [facility] [address] [place] [address] 09/03/2024 Provider Migration Plan Of Treatment Next Appt Details Provider Name:Krishan Caldwell, 02/15/2025 09:30:00 AM, [address], [address], [place], [address], Progress Notes * Lavinia IYER ADOB:1950 (74 yo F)Acc No.[id number]:09/03/2024 Patient: Ramakrishna Lavinia RAINEY Provider: Cindy moore Migration :1950 A ge:73 Y S ex:Female Date:09/03/2024 Address:[address] [place], [id number] Pcp:Krishan Caldwell Subjective: * Chief Complaints: * [...] Electronic signature of Prov ider Migration on 02/08/2025 at 09:52 AM EDT Sign off status: Pending * Provider: Cindy moore Migration Date: 0 09/03/2024 Generated for Sobeida rosenberg/Jena/Wilbur on: 0 02/08/2025 09:52 AM EDT
--- OUTSIDE RECORDS SUMMARY | 2025-01-16 06:45 | XMS_ITS ---
Author Organization [facility] Address [address] [facility] [address] [facility] [address] [place] [address] Care Team Providers Care Tuckpointer Name Role Phone Krishan Caldwell Primary Care Provider [phone] REASON FOR VISIT med ck, thyroid Encounters Encounter Location Date Provider Diagnosis [facility] [address] [facility] [address] [place] [address] 01/16/2025 Krishan Caldwell Plan Of Treatment Next Appt Details Provider Name:Krishan Caldwell, 02/15/2025 09:30:00 AM, [address] [facility] [address], [address], [place], [address], Progress Notes * Lavinia IYER ADOB:1950 (74 yo F)Acc No.[id number]:01/16/2025 Progress Notes Patient: Ramakrishna RAINEY Lavinia Quintana Provider: Min Caldwell MD :1950 A ge:74 Y S ex:Female Date:01/16/2025 Address:[place] [id number] Subjective: * Chief Complaints: * 1 . Med ck, thyroid. * Medical History: Objective: * Vitals: Assessment: Plan: * Treatment: * * Electronic signature of Levy Caldwell MD FAAP on 02/08/2025 at 09:52 AM EDT Sign off status: Pending * Provider: Min Caldwell MD Date: 0 01/16/2025 Generated for Sobeida rosenberg/Jena/Wilubr on: 0 02/08/2025 09:52 AM EDT
--- OUTSIDE RECORDS SUMMARY | 2025-02-08 09:53 | XMS_ITS | Clinical Summary ---
Author Organization [facility] Address [address] [place] [address] Care Team Providers Care Caterer'S Aide Name Role Phone Krishan Caldwell MD Primary Care Provider [phone] Allergies No known active allergies Social History [...] TDAP/TD VACCINES (2 - Tdap) 08/05/2006 08/05/1996 RSV Vaccine - Adults (1 - 1- dose 75+ series) 2024 COVID-19 Vaccine (3 - 2025-2 6 season) 2025 12/04/2020, 11/13/2020 INFLUENZA VACCINE 03/01/2025 MAMMOGRAM Discontinued 03/08/2024, 01/31, [...] Relevant to Health Maintenance Insurance Care Teams Caterer'S Aide Relationship Specialty Start Date End Date Krishan Caldwell MD [address] [facility] [address] [place] [address] PCP - General Adolescent Medicine 04/26/24
--- OUTSIDE RECORDS SUMMARY | 2025-02-08 09:53 | XMS_ITS | Patient Health Record ---
Author Organization [facility] Address [address] [place] [address] Care Team Providers Care Golf Cart Mechanic Name Role Phone Krishan Caldwell Primary Care Provider Migration, Provider Unavailable Unavailable Allergies Allergen (clinical drug ingredient) Drug/Non Drug Allergy documented on EMR Reaction Allergy Type Onset Date Status niacin Niacin Unknown Drug Allergy Active Results Component Value Reference Range Notes M-Drug Screen,Urine Reviewed date:08/01/2024 05:08:21 PM Interpretation: [...] HDL 42 40-60 mg/dl CHLHDL 2.6 1-3.5 M-Hemoglobin A1C Reviewed date:08/01/2024 05:08:21 PM [...] U/L M-Complete Blood Count Auto Diff Reviewed date:08/01/2024 [...] recommended. MICROALB 15.500 0-16.7 mg/L MALBCREAT 17.2 M-Thyroid Panel Reviewed date:05/05/2024 12:28:12 PM Interpretation: Performing Lab: Notes/Report: FTI 3.4 5.93-13.13 ug/dL T4 9.5 5.53-11.0 ug/dl T3U 36 23.5-40.5 % TSH < 0.02 0.465-4.68 uIU/mL M-Complete Blood Count Auto Diff Reviewed date:05/05/2024 [...] date:08/12/2024 06:48:18 AM Interpretation: Performing Lab: Notes/Report: Medications Medication SIG (Take, Route, Frequency, Duration) [...] review and pick correct strength-formulat ion from [employer] options. If intended option is not shown, [...] Peripheral circulatory disorder associated with diabetes mellitus (446288513) Type 2 diabetes mellitus with other circulatory complications (E11.59) Active confirmed Problem Polyneuropathy (73406274) Polyneuropathy in diseases classified elsewhere (G63) Active confirmed Problem Atherosclerotic heart disease of [place] coronary artery without angina pectoris (954815406584157) Atherosclerotic heart disease of [place] coronary artery without angina pectoris (I25.10) Active confirmed Problem Arthritis (7550048) Arthritis (M19.90) Active confirmed Problem Hyperlipidemia (18438230) Hyperlipemia, idiopathic familial (E78.5) Active confirmed Problem Vitamin B12 deficiency (non anemic) (84222951) B12 deficiency (E53.8) Active confirmed Problem Essential hypertension (65764900) Hypertension, essential (I10) Active confirmed Problem Acquired hypothyroidism (635158041) Acquired hypothyroidism (E03.9) Active confirmed Problem Personal history of primary malignant neoplasm of breast (091917322) History of breast cancer (Z85.3) Active confirmed Problem Postmenopausal bleeding (20243331) Post-menopausal bleeding (N95.0) Active confirmed Problem Diabetic peripheral neuropathy associated with type 2 diabetes mellitus (7727128303695) Type 2 diabetes mellitus with diabetic neuropathy, without long-term current use of insulin (E11.40) Active confirmed Problem Stasis dermatitis (disorder) (04134302) Stasis dermatitis of both legs (I87.2) Active confirmed Problem Chronic kidney disease stage 3B (disorder) (415427402) Chronic kidney disease, stage 3b (N18.32) Active confirmed Vital Signs Heart Rate 76 /min 11/14/2024 Temperature 97.9 degrees Fahrenheit 11/14/2024 Blood pressure diastolic 62 mm Hg 11/14/2024 Height 5 ft 6.75 in in 11/14/2024 Blood pressure systolic 120 mm Hg 11/14/2024 Weight 166 lbs 11/14/2024 BMI 26.19 kg/m2 11/14/2024 Encounters Encounter Location Date Provider Diagnosis [facility] [address] [place] [address] 09/03/2024 Provider Migration [facility] [address] [place] [address] 02/17/2024 Krishan Caldwell Hypertension, essent ial I10 ; Acquired hypothyroidism E03.9 ; Idiopathic neuropathy G60.9 ; Type 2 diabetes mellitus with diabetic neuropathy, without long-term current use of insulin E11.40 ; Primary osteoarthritis, right hand M19.041 and Primary osteoarthritis, left hand M19.042 [facility] [address] [place] [address] 05/04/2024 Krishan Caldwell Hyperlipemia, idiopathic familial E78.5 ; Acquired hypothyroidism E03.9 ; Stage 3a chronic kidney disease (CKD) N18.31 ; History of breast cancer Z85.3 and Rhinitis, unspecified type J31.0 [facility] [address] [place] [address] 08/01/2024 Krishan Caldwell Type 2 diabetes mellitus with diabetic neuropathy, without long-term current use of insulin E11.40 ; Atherosclerotic heart disease of [place] coronary artery without angina pectoris I25.10 ; Chronic kidney disease, stage 3b N18.32 ; High risk medication use Z79.899 ; Acquired hypothyroidism E03.9 ; Adenocarcinoma of right breast C50.911 ; Arthritis M19.90 ; Hypertension, essential I10 and Healthcare maintenance Z00.00 [facility] [address] [place] [address] 08/10/2024 Krishan Caldwell Post-menopausal bleeding N95.0 [facility] [address] [place] [address] 10/31/2024 Krishan Caldwell Impacted cerumen of right ear H61.21 [facility] [address] [place] [address] 11/14/2024 Krishan Besson Type 2 diabetes mellitus with diabetic neuropathy, without long-term current use of insulin E11.40 ; Chronic kidney disease, stage 3b N18.32 ; History of breast cancer Z85.3 and Vertigo R42 [facility] [address] [place] [address] 05/10/2024 Krishan Besson [facility] [address] [place] [address] 08/01/2024 Krishna Besson [facility] [address] [place] [address] 08/11/2024 Krishan Besson [facility] [address] [place] [address] 11/14/2024 Krishan Besson [facility] [address] [place] [address] 12/16/2024 Krishan Besson [facility] [address] [place] [address] 12/19/2024 Krishan Besson [facility] [address] [place] [address] 01/02/2025 Krishan Besson [facility] [address] [place] [address] 01/03/2025 Krishan Besson [facility] [address] [place] [address] 01/26/2025 Krishan Besson Assessments Encounter Date Diagnosis [...] T4 levels 08/01/2024 Atherosclerotic heart disease of [place] coronary artery without angina pectoris (ICD-10 - [...] breast cancer and was on tamoxifen from 8699-5161. Will order TVUS to evaluate for causes [...] Follows with surgeon. No evidence of recurrence. 08/01/2024 Chronic kidney disease, stage 3b (ICD-10 [...] cerumen impaction will of help symptomatology. 08/01/2024 Acquired hypothyroidism (ICD-10 - E03.9) T4 [...] C-CBC 02/09/2017 C-CBC 06/18/2009 C-CBC 04/08/2010 C-CMP 06/18/2009 C-CMP 02/09/2017 C-CMP 03/15/2012 C-CMP 04/08/2010 C-LIPID PANEL 04/08/2010 C-LIPID PANEL 06/18/2009 C-LIPID PANEL 03/15/2012 C-LIPID PANEL 02/09/2017 C-TSH 02/09/2017 C-TSH 06/18/2009 C-TSH 04/08/2010 C-URINE CULTURE 11/12/2009 C-MISC CULTURE 01/26/2012 Uric Acid, Serum 08/05/2012 M-Peripheral Smear Review 12/05/2020 M-Vitamin B12 12/05/2020 M-Iron and TIBC 12/05/2020 M-Microalb/Creat Ratio, Randm Ur 025 Future Test Test Name Order Date C-HGBA1C 12/29/2008 H-TSH 11/07/2013 Next Appt Details Provider Name:Krishanheidi Caldwell, 02/15/2025 09:30:00 AM, [address] [place] [facility] [address] [facility], [address], [place], [address], Insurance Providers Payer Name Payer Address Payer Phone Subscriber Number Group Number Insured Name Patient Relationship to Insured Coverage Start Date Coverage End Date [employer] [address] [address] [place] [address] [id number] Lavinia Iyer Self - patient is the [...] CATARACT- 05/10/24, 06/14/24 Hospitalization History Reason Date(Month/Year) [facility] 06/2023
[2025-02-08 10:53] LABS: Anion Gap 10.1 mEq/L (5-15); Blood Urea Nitrogen 22 mg/dl (7-17); Calcium 9.9 mg/dl (8.4-10.2); Carbon Dioxide 30 mmol/L (22.0-30.0); Chloride 104 mmol/L (98-107); Creatinine,Serum 1.50 mg/dl (0.52-1.04); Estimated Glomerular Filt Rate 34 ml/min (>60); GFR (African American) 41 ML/MIN (>60); Glucose 127 mg/dl (74-100); Potassium 4.1 mmoL/L (3.5-5.1); Sodium 140 mmol/L (136-145)
[2025-02-08 11:10] LABS: Free T4 (Free Thyroxine) 1.16 ng/dl (0.78-2.19)
[2025-02-08 11:25] LABS: Thyroid Stimulating Hormone 2.37 uIU/mL (0.465-4.68)
== END 2025-02-08 23:59 | disposition home or self-care (01) ==
LOC: LAB 09:47
PROVIDERS: Physician Assistant; PCP Internal Medicine Adolescent Medicine; Visit Provider Student in an Organized Health Care Education/Training Program
DX: E03.9 Hypothyroidism, unspecified (principal); R60.9 Edema, unspecified
CPT/HCPCS: 36415; 80048; 84439; 84443; 86376

== ENCOUNTER 2025-03-15 21:37 | Observation (INO) | payer OTHER, SELFPAY ==
--- OUTSIDE RECORDS SUMMARY | 2024-09-03 17:30 | XMS_ITS ---
Author Organization [facility] Address [address] [place] [address] Care Team Providers Care Computerized Mill Mill Recorder Name Role Phone Krishan Caldwell Primary Care Provider Migration, Provider Unavailable Unavailable Allergies Allergen (clinical drug ingredient) Drug/Non Drug Allergy documented on EMR Reaction Allergy Type Onset Date Status niacin Niacin Unknown Drug Allergy Active REASON FOR VISIT [facility] To [facility] Conversion Encounter Medications Medication SIG (Take, [...] review and pick correct strength-formulat ion from [employer] options. If intended option is not shown, [...] Active Encounters Encounter Location Date Provider Diagnosis [place] [facility] [address] [facility] [address] [place] [address] 09/03/2024 Provider Migration Plan Of Treatment Next Appt Details Provider Name:Krishan Caldwell, 04/12/2025 09:30:00 AM, [address], [address], [place], [address], Progress Notes * Lavinia IYER ADOB:1950 (74 yo F)Acc No.[id number]:09/03/2024 Patient: Ramakrishna Lavinia RAINYE Provider: Cindy moore Migration :1950 A ge:73 Y S ex:Female Date:09/03/2024 Address:[address] [place], [id number] Pcp:Krishan Caldewll Subjective: * Chief Complaints: * 1 . [...] *Please review and pick correct strength-formulation from [facility] options. If intended option is not [...] Electronic signature of Prov ider Migration on 03/15/2025 at 09:44 PM EDT Sign off status: Pending * Provider: Cindy moore Migration Date: 0 09/03/2024 Generated for Sobeida rosenberg/Jena/Wilbur on: 1 09:44 PM EDT
--- OUTSIDE RECORDS SUMMARY | 2025-01-16 06:45 | XMS_ITS ---
Author Organization [facility] Address [address] [facility] [address] [facility] [address] [place] [address] Care Team Providers Care Inspector And Mender Name Role Phone Krishan Caldwell Primary Care Provider [phone] REASON FOR VISIT med ck, thyroid Encounters Encounter Location Date Provider Diagnosis [facility] [address] [facility] [address] [place] [address] 01/16/2025 Krishan Caldwell Plan Of Treatment Next Appt Details Provider Name:Krishan Caldwell, 04/12/2025 09:30:00 AM, [address] [facility] [address], [address], [place], [address], Progress Notes * Lavinia IYER ADOB:1950 (74 yo F)Acc No.[id number]:01/16/2025 Progress Notes Patient: Ramakrishna RAINEY Lavinia Quintana Provider: Min Caldwell MD :1950 A ge:74 Y S ex:Female Date:01/16/2025 Address:[address] [id number] Subjective: * Chief Complaints: * 1 . Med ck, thyroid. * Medical History: Objective: * Vitals: Assessment: Plan: * Treatment: * * Electronic signature of Levy Caldwell MD FAAP on 03/15/2025 at 09:46 PM EDT Sign off status: Pending * Provider: Min Caldwell MD Date: 0 01/16/2025 Generated for Sobeida rosenberg/Jena/Wilbur on: 1 09:46 PM EDT
--- OUTSIDE RECORDS SUMMARY | 2025-02-15 05:30 | XMS_ITS ---
Author Organization [facility] Address [address] [place] [address] Care Team Providers Care Watch Assembly Instructor Name Role Phone Levy Caldwellhen Primary Care Provider [phone] Allergies Allergen (clinical drug ingredient) Drug/Non Drug [...] W/U Status Risk Notes Problem Cervical radiculopathy (97635715) Cervical neuralgia (M54.12) Active confirmed Vital Signs Temperature 97.7 degrees Fahrenheit 02/16/20 25 Heart Rate 78 /min 02/15/2025 Blood pressure systolic 110 mm Hg 02/16/20 25 Blood pressure diastolic 64 mm Hg 025 Height 5 ft 6.75 in in 02/15/2025 Weight 169.6 lbs 02/15/2025 BMI 26.76 kg/m2 02/15/2025 Encounters Encounter Location Date Provider Diagnosis [facility] ANY [address] [facility] [address] [place] [address] 02/15/2025 Krishan Paulette Hypertension, essent ial I10 [...] Up: 2 Months, Reason: Provider Name:Krishan Caldwell, 04/12/2025 09:30:00 AM, [address] [facility] [address] [facility], [address], [place], [address], Progress Notes * Lavinia IYER ADOB:1950 (74 yo F)Acc No.[id number]:02/15/2025 Progress Notes Patient: Lavinia FERRELL A Provider: Min Caldwell MD :1950 A ge:74 Y S ex:Female Date:02/15/2025 Address:[address] [place] [address] [place], [id number] Subjective: * Chief Complaints: * 1 . [...] neurosurgery and has a procedure scheduled at [facility] first week of March for cervical [...] 02/15/2025 Generated for Sobeida rosenberg/Jena/Rosendosmitting on: 1 09:43 PM EDT History and Physical Notes * HPI [...] neurosurgery and has a procedure scheduled at [facility] first week of March for cervical [...]
--- OUTSIDE RECORDS SUMMARY | 2025-02-24 13:58 | XMS_ITS | Encounter Summary ---
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 Role Phone Unavailable Primary Care Provider Unavailabl e Reason for Visit * Auth/Cert (Routine) Specialty Diagnoses / Procedures Referred By Contac t Referred To Contact Diagnoses Disease of spinal cord (HCC) SEE PRIMARY DX Procedures HI ARTHRD PST/PSTLAT TQ 1NTRSPC CRV BELW C2 SEGMENT HI ARTHRODESIS PST/PSTLAT TQ 1NTRSPC EA ADDL NTRSPC LAMINECTOMY, SPINE, CERVICAL, POSTERIOR APPROACH, WITH FUSION, PRONE POSITION [facility] Operating Room [address] [place] [address] Phone: tel: fax: [facility] Operating Room [address] [place] [address] Phone: tel: fax: Referral ID Status Reason Start Date Expiration Date Visits Re quested Visits Authorized [id number] 1 1 Encounter Details Date Type Department Care Team (Latest Contact Info) Description 02/24/2025 1:58 PM EDT - 02/24/2025 11:59 PM EDT Hospital Encounter [facility] Preadmission Testing [address] [place] [address] Preop testing (Primary Dx); Cervical myelopathy (HCC); History of breast cancer; Hypertension; Hypothyroidism; History of PA (myocardial infarction); Coronary atherosclerosis of [place] coronary artery; Diabetes mellitus, type II (HCC); [...] time, call the Outpatient Surgery Department at [phone] or ext [phone] Arrive at the hospital [...] body piercings), hair pins, makeup or nail ivorian on fingers or toes on the day [...] a living will, healthcare surrogate, power of web analytics developer, or legal guardianship verification to the hospital [...] sent through Care Everywhere. * Cervical Fusion (Citizen Of [place]) * General Anesthesia Adult (Citizen Of [place]) documented in this encounter Medications at Time [...] daily for 10 days. 10 capsule 03/04/2025 5 oxyCODONE-acetam inophen (PERCOCET) 5-325 mg per tablet Take 1 tablet by mouth every 6 (six) hours as needed for pain for up to 10 days Look-alike/Yuliya nd-alike medication. Max Daily Amount: 4 tablets 20 tablet 03/04/2025 5 acetaminophen (Tylenol Extra Strength) 500 MG tablet [...] history: CAD s/p 5 stents -follows with [facility] Cardiology Services Pertinent negatives: no hx [...] Clarity, UA 02/24/2025 Clear Clear Final Specific Lolita, UA 02/24/2025 1.014 1.005 - 1.030 Final [...] valve mildly thickened, mild aortic regurg, trace MR/TR/HI; mild AI, normal BiV systolic fxn Stress test 12/20/24 unremarkable Assessment & Plan Principal Problem: Preoperative evaluation to rule out surgical contraindication Active Problems: Cervical myelopathy (HCC) History of breast cancer Hypertension Hypothyroidism History of PA (myocardial infarction) Coronary atherosclerosis of [place] coronary artery Diabetes mellitus, type II (HCC) CKD (chronic kidney disease), stage III (HCC) Preop evaluation: Patient underwent preoperative laboratory workup and diagnostic studies as above.Utilized the following risk calculators: Sleep apnea risk assessment via Epic: at risk. EKG 01/23/25- NSR, HR 61 from [facility] Cardiology. Continue home meds per PCP recommendations. Medication preop holds reviewed with pt by nursing. CAD -Cardiac clearance given by Ar Chavarria PA-C - [facility] Cardiology. Recommended holding ASA 5 days [...] - 5.6 % 02/24/2025 3:43 PM EDT [facility] Comment: Hemoglobin A1C levels are related to mean glucose during the preceding 2-3 months. Less than 7% demonstrates glycemic control in diabetic patients. Hemoglobin AlC % Suggested Diagnosis > or = 6.5 Diabetic 5.7 - 6.4 Prediabetic <5.7 Non-diabetic eAVG Glucose 114.02 70 - 126 mg/dL 02/24/2025 3:43 PM EDT [facility] Blood Venipuncture / Unknown 02/24/2025 3:04 PM EDT 02/24/2025 3:25 PM EDT us De Fox MD LAB BLOOD ORDERABLES Final Res ult [facility] [address] [place] [address], [facility] [phone] * ABO/RH CONFIRMATION/RETYPE (02/24/2025 3:03 PM EDT) RETYPE O Negative 02/24/2025 3:23 PM EDT [facility] ([place]) Blood Venipuncture / Unknown 02/24/2025 3:03 PM EDT 02/24/2025 3:23 PM EDT us De Fox MD [facility] BLOOD BANK TEST ORDERABLES Final Result [facility] ([place]) [address] [place] [address], [facility] [phone] * (ABNORMAL) Urinalysis without Microscopic (02/24/2025 3:03 PM EDT) Color, UA Light Yellow 02/24/2025 3:39 PM EDT [facility] Clarity, UA Clear Clear 02/24/2025 3:39 PM EDT [facility] Specific Lolita, UA 1.014 1.005 - 1.030 02/24/2025 3:39 PM EDT [facility] pH, UA 5.0(L) 6.0 - 8.0 02/24/2025 3:39 PM EDT [facility] Leukocytes, UA Negative Negative 02/24/2025 3:39 PM EDT [facility] Nitrite, UA Negative Negative 02/24/2025 3:39 PM EDT [facility] Protein, UA Negative Negative 02/24/2025 3:39 PM EDT [facility] Glucose, UA Normal Normal 02/24/2025 3:39 PM EDT [facility] Ketones, UA Negative Negative 02/24/2025 3:39 PM EDT [facility] Urobilinogen, UA Normal Normal 02/24/2025 3:39 PM EDT [facility] Bilirubin, UA Negative Negative 02/24/2025 3:39 PM EDT [facility] Blood, UA Negative Negative 02/24/2025 3:39 PM EDT [facility] Specimen Source Urine, Clean Catch 02/24/2025 3:39 PM EDT [facility] Urine URINE SPECIMEN COLLECTION, CLEAN CATCH / Unknown 02/24/2025 3:03 PM EDT 02/24/2025 3:26 PM EDT us Julio César Carvajal MD URINE ORDERABLES Final Result [facility] [address] [place] [address], [facility] [phone] * (ABNORMAL) Basic Metabolic Panel (02/24/2025 3:03 PM EDT) Sodium 145 136 - 145 meq/L 02/24/2025 4:03 PM EDT [facility] Potassium 4.5 3.4 - 5.1 meq/L 02/24/2025 4:03 PM EDT [facility] CO2 27 22 - 29 meq/L 02/24/2025 4:03 PM EDT [facility] Chloride 109 98 - 112 meq/L 02/24/2025 4:03 PM EDT [facility] Glucose 96 82 - 115 mg/dL 02/24/2025 4:03 PM EDT [facility] BUN 29.4(H) 9.8 - 20.1 mg/dL 02/24/2025 4:03 PM EDT [facility] Creatinine 1.95(H) 0.57 - 1.11 mg/dL 02/24/2025 4:03 PM T [facility] BUN/Creatinine 15 8 - 20 02/24/2025 4:03 PM EDT [facility] Calcium 9.9 8.4 - 10.2 mg/dL 02/24/2025 4:03 PM EDT [facility] Anion Gap 14(H) 4 - 12 02/24/2025 4:03 PM T [facility] eGFR (mL/min/1.73m2) 26(L) >=60 mL/min/1.7 3m2 02/24/2025 4:03 PM EDT [facility] Comment:ESTIMATED GFR IS NOT ACCURATE CREATININE CLEARANCE IN PREDICTING GLOMERULAR FILTRATION RATE. ESTIMATED GFR IS NOT APPLICABLE FOR DIALYSIS PATIENTS. Osmolality Calc 294.5 mOsm/kg 4:03 PM T [facility] Blood Venipuncture / Unknown 02/24/2025 3:03 PM EDT 02/24/2025 3:26 PM EDT us Julio César Carvajal MD LAB BLOOD ORDERABLES Final Re sult [facility] [address] [phone] * (ABNORMAL) CBC - Hemogram (SJ-BKR) (02/24/2025 3:03 PM EDT) WBC 5.9 4.0 - 10.0 K/ L 02/24/2025 3:29 PM EDT [facility] RBC 3.90(L) 3.93 - 5.22 M/ L 02/24/2025 3:29 PM EDT [facility] Hemoglobin 11.7 11.2 - 15.7 GM/DL 02/24/2025 3:29 PM EDT [facility] Hematocrit 35.9 34.1 - 44.9 % 02/24/2025 3:29 PM EDT [facility] MCV 92 79 - 95 fL 02/24/2025 3:29 PM EDT [facility] MCH 30.0 25.6 - 32.2 pg 02/24/2025 3:29 PM EDT [facility] MCHC 32.6 32.2 - 35.5 GM/DL 02/24/2025 3:29 PM EDT [facility] RDW 13.8 11.7 - 14.4 % 02/24/2025 3:29 PM EDT [facility] Platelets 162 140 - 375 K/CU MM 02/24/2025 3:29 PM EDT [facility] MPV 11.2 9.4 - 12.3 fL 02/24/2025 3:29 PM EDT [facility] Blood Venipuncture / Unknown 02/24/2025 3:03 PM EDT 02/24/2025 3:23 PM EDT us Julio César Carvajal MD LAB BLOOD ORDERABLES Final Re sult [facility] [address] [phone] documented in this encounter Visit Diagnoses Diagnosis Preoperative evaluation to rule out surgical contraindication- Primary Cervical myelopathy (HCC) Cervical spondylosis with myelopathy History of breast cancer Personal history of malignant neoplasm of breast Hypertension Unspecified essential hypertension Hypothyroidism Unspecified hypothyroidism History of PA (myocardial infarction) Old myocardial infarction Coronary atherosclerosis of [place] coronary artery Diabetes mellitus, type II (HCC) [...] of malignant neoplasm of breast History of PA (myocardial infarction) Old myocardial infarction Diabetes mellitus, type II (HCC) Type II or unspecified type diabetes mellitus without mention of complication, not stated as uncontrolled CKD (chronic kidney disease), stage III (HCC) Chronic kidney disease, Stage III (moderate) Coronary atherosclerosis of [place] coronary artery documented in this encounter Administered [...]
--- OUTSIDE RECORDS SUMMARY | 2025-03-02 05:59 | XMS_ITS | Encounter Summary ---
Author Organization [employer] ([place], [place], [place], [place]) Address [address] [place] [address] Care Team Providers Care Cupola Repairer Name Role Phone Krishan Caldwell MD Primary Care Provider + [phone] Reason for Visit * Auth/Cert (Routine) Specialty Diagnoses / Procedures Referred By Contac t Referred To Contact Diagnoses Disease of spinal cord (HCC) SEE PRIMARY DX Procedures AR ARTHRD PST/PSTLAT TQ 1NTRSPC CRV BELW C2 SEGMENT AR ARTHRODESIS PST/PSTLAT TQ 1NTRSPC EA ADDL NTRSPC LAMINECTOMY, SPINE, CERVICAL, POSTERIOR APPROACH, WITH FUSION, PRONE POSITION [facility] Operating Room [address] [place] [address] Phone: tel: fax: [facility] Operating Room [address] [place] [address] Phone: tel: fax: Referral ID Status Reason Start Date Expiration Date Visits Re quested Visits Authorized [id number] 1 1 Encounter Details Date Type Department Care Team (Latest Contact Info) Description 03/02/2025 5:59 AM EDT - 03/05/2025 12:45 PM EDT Hospital Encounter [facility] Orthopedic & Neurosurgery Unit [address] [place] [address] Julio César Carvajal MD [address] [place] [address] Discharge Disposition: Hospice/Medical Facility Social History Tobacco [...] your living situation today? [facility] live 03/02/[address] you li ve. Do you have problems with any of the following? None of the above 03/02/2025 Food Insecurity Answer Date Recorded Within the past 12 months, y ou worried that your food would run out before you got money to buy more. Never true 03/02/2025 Within the past 12 months, t he food you bought just didn't last [...] Do you speak a language other than Luxembourger at ho me? No 03/02/2025 Do you want help with [...] Your Medications These medications were sent to [facility] - [place], [place] - [address], [place] [address] cyclobenzaprine 5 MG tablet docusate sodium 100 MG capsule oxyCODONE-acetaminophen 5-325 mg per tablet Physical Exam GEN: NAD NEURO: GCS 465 4/5 throughout (effort and pain limited) Incision is clean, dry, and dressed C-collar in place Discharge Instructions Discharge Follow UP: Contact information for follow-up Julio César Carvajal MD Specialty: Neurosurgery, Neurological Surgery [address] [place] [address] Next Steps: Follow up Julio César Carvajal MD Specialty: Neurosurgery, Neurological Surgery [address] [place] [address] Next Steps: Follow up Electronically signed by [...] * How to Prevent Constipation After Surgery (Luxembourger) * How to Use an Incentive Spirometer (Luxembourger) documented in this encounter Medications at Time [...] César Carvajal MD Specialty: Neurosurgery, Neurological Surgery [address] [place] [address] Next Steps: Follow up Julio César Carvajal MD Specialty: Neurosurgery, Neurological Surgery [address] [place] [address] Next Steps: Follow up Transporation Provider: (P) FAMILY Transporation Contact Name: Transportation Provider Phone: Date of tool grinder set up operator gear: (P) 03/05/25 Time of tool grinder set up operator gear: LBM-03/05. Pt dc'd to [facility] via family. No other CM needs noted. Gertrudis Vap, RN * Carlos Garg, PT - 03/05/2025 [...] By: Name and Date of Assisted by: technical support internship Precautions Weight-Bearing Status: No Restrictions Precautions: Spinal [...] equipment discharge needs at this time. Goals Bhxdle-jc-pak: By the target date, patient will perform axhsnk-bf-szu with complete independence, utilizing no assistive device, to improve independence with bed mobility. Vws-gs-uklmy: By the target date, patient will perform [...] - 03/05/25 - 12:10 PM EDT * Carlos Garg PT - 03/04/2025 3:46 PM EDT Images [...] By: Name and Date of Assisted by: technical support internship Precautions Weight-Bearing Status: No Restrictions Precautions: Spinal [...] Score Raw score=10 t-Scale score=32.29 Standard error=3.42 [facility] 0-100%=76.75% MDC=4.72 A raw score of >= [...] equipment discharge needs at this time. Goals Umpcyn-jx-niu: By the target date, patient will perform szkhda-uj-xny with complete independence, utilizing no assistive device, to improve independence with bed mobility. Ikf-qc-twhkn: By the target date, patient will perform [...] collar in place Output by Drain (mL) 03/02/25699 - 03/02/25185803/02/251899 - 03/03/25 0659 03/03/25 07 - 03/03/25 1859 03/03/25 190 - 03/04/25 0659 03/04/25 07 - 03/04/25 [...] Catalan PA-C - 03/04/2025 9:21 AM EDT [facility] MEDICINE PROGRESS NOTE: Patient: Lavinia Iyer Date: [...] of breast cancer Hypertension Hypothyroidism History of AK (myocardial infarction) Coronary atherosclerosis of chinik coronary artery s/p stents Diabetes mellitus, type [...] room Previous Living Condition: Home Expected Disposition: [facility] Expected Discharge Date: Tomorrow, per neurosurgery Subjective [...] rhonchi. Abdomen: Soft, nontender/nondistended. Positive bowel sounds. TRANSMISSION TESTER: Alert oriented x4. No gross focal neuro deficits, county or city auditor equal bilaterally, normal sensation. Musculoskeletal: Range of motion is normal. No pedal edema. Skin: Warm and dry on exposed surface, bandage is clean and dry, NATTY drain in place with small amount of serosanguinous drainage. Psychiatry: Mood appropriate Medications: Scheduled Meds: acetaminophen 1,000 mg oral Q6H 1,000 mg at 03/03/258 atorvastatin 40 mg oral Every Night 40 [...] mcg oral QAM (0600) 112 mcg at 03/04/25 0552 losartan-hydrochlorothiazide 2 tablet oral Daily 2 tablet at 03/04/25828 spironolactone 25 mg oral Daily 25 mg at 03/04/25828 Continuous Infusions: Current Facility-Administered Medications Medication Dose Route Frequency Provider Last Rate Last Admin acetaminophen (TYLENOL) tablet 1,000 mg 1,000 mg oral Q6H Julio César Carvajal MD 1,000 mg at 03/03/252347 atorvastatin (LIPITOR) tablet 40 mg 40 mg [...] Daily Valencia Harmon MD 5 mg at 03/04/25827 cyclobenzaprine (FLEXERIL) tablet 5 mg 5 mg oral TID PRN Julio César Carvajal MD 5 mg at 03/04/25828 dextrose 50% (D50W) injection 25 g 25 g intravenous Q15 Min PRN Valencia Harmon MD docusate sodium (COLACE) capsule 100 mg 100 mg oral BID Julio César Carvajal MD 100 mg at 03/04/25827 enoxaparin (LOVENOX) syringe 30 mg 30 mg subcutaneous Q24H Julio César Carvajal MD 30 mg at 03/03/251032 famotidine (PEPCID) tablet 20 mg 20 mg oral Daily Valencia Harmon MD 20 mg at 03/04/25827 glucagon injection 1 mg 1 mg intraMUSCULAR Q15 Min PRN Valencia Harmon MD glucose chew tab 16 g 16 g oral Q15 Min PRN Valencia Harmon MD hydrALAZINE (APRESOLINE) injection 10 mg 10 mg intravenous Q4H PRN Valencia Harmon MD hydrOXYzine pamoate (VISTARIL) capsule 25 mg 25 mg oral Every Night Valencia Harmon MD 25 mg at 047 insulin lispro (HUMALOG, ADMELOG) injection 0-6 Units 0-6 Units subcutaneous 4x Daily AC Valencia Harmon MD lactated Ringer's infusion 100 mL/hr intravenous Continuous Shauna Valladares MD 100 mL/hr at 03/02/25 2305 100 mL/hr at 03/02/25 230 levothyroxine (SYNTHROID) tablet 112 mcg 112 mcg [...] Range POC-GLUCOSE 104 70 - 110 mg/dL Manager Administrative Services [id number] Glucose, Nova Meter Status: Abnormal Collection Time: 03/03/25 4:04 PM Result Value Ref Range POC-GLUCOSE 125 (H) 70 - 110 mg/dL Manager Administrative Services [id number] Glucose, Nova Meter Status: Abnormal Collection Time: 03/03/25 8:17 PM Result Value Ref Range POC-GLUCOSE 121 (H) 70 - 110 mg/dL Manager Administrative Services [id number] Glucose, Nova Meter Status: None Collection Time: 03/04/25 5:08 AM Result Value Ref Range POC-GLUCOSE 99 70 - 110 mg/dL Manager Administrative Services [id number] Radiology: Radiology Results (last 3 days) Procedure Component Value Units Date/Time XR spine cervical 2 or 3 views - In process [[id number]] Resulted: 03/03/25 0944 Order Status: Sent Updated: 03/03/25 1007 This result has not been signed. Information might be incomplete. FL C-ARM < 1 HOUR [[id number]] Collected: 03/02/25 1443 Order Status: Completed Updated: [...] note, since the hospital's version of the [employer] EMR requires attestations for mid-level providers. * Marbin Loya MD - 03/03/2025 6:49 PM EDT [facility] MEDICINE PROGRESS NOTE: Patient: Lavinia Iyer Date: [...] of breast cancer Hypertension Hypothyroidism History of AK (myocardial infarction) Coronary atherosclerosis of chinik coronary artery s/p stents Diabetes mellitus, type [...] bilaterally. Abdomen: Soft. Nontender. Positive bowel sounds. TRANSMISSION TESTER: Alert oriented x3. No gross neurological focal deficits. Musculoskeletal: Range of motion is normal. No pedal edema. Skin: Warm and dry on exposed surface. Psychiatry: Mood appropriate Medications: Scheduled Meds: acetaminophen 1,000 mg oral Q6H 1,000 mg at 03/03/251813 atorvastatin 40 mg oral Every Night 40 mg at 03/02/252123 bisoprolol 5 mg oral Daily 5 mg at 03/03/25916 docusate sodium 100 mg oral BID 100 mg at 03/03/25 0917 enoxaparin 30 mg subcutaneous Q24H 30 mg at 03/03/25 1033 famotidine 20 mg oral Daily 20 mg at 03/03/25916 hydrOXYzine pamoate 25 mg oral Every Night 25 mg at 03/02/254 insulin lispro 0-6 Units subcutaneous 4x Daily AC levothyroxine 112 mcg oral QAM (0600) 112 mcg at 03/03/25 0508 losartan-hydrochlorothiazide 2 tablet oral Daily 2 tablet at 03/03/25916 spironolactone 25 mg oral Daily 25 mg at 03/03/25 0917 Continuous Infusions: Current Facility-Administered Medications Medication Dose Route Frequency Provider Last Rate Last Admin acetaminophen (TYLENOL) tablet 1,000 mg 1,000 mg oral Q6H Julio César Carvajal MD 1,000 mg at 03/03/251813 atorvastatin (LIPITOR) tablet 40 mg 40 mg [...] Julio César Carvajal MD 100 mg at 03/03/25 09 enoxaparin (LOVENOX) syringe 30 mg 30 mg [...] Julio César Carvajal MD 0.5 mg at 03/02/252124 hydrOXYzine pamoate (VISTARIL) capsule 25 mg 25 mg oral Every Night Valencia Harmon MD 25 mg at insulin lispro (HUMALOG, ADMELOG) injection 0-6 Units 0-6 Units subcutaneous 4x Daily AC Valencia Harmon MD lactated Ringer's infusion 100 mL/hr intravenous Continuous Shauna Valladares MD 100 mL/hr at 03/02/25 2305 100 mL/hr at 03/02/25 230 levothyroxine (SYNTHROID) tablet 112 mcg 112 mcg [...] mL/hr at 03/03/25 0919 100 mL/hr at 03/03/25918 spironolactone (ALDACTONE) tablet 25 mg 25 mg oral Daily Valencia Harmon MD 25 mg at 03/03/25 0917 PRN Meds: @MEDSPRN@ Labs: Results for orders placed or performed during the hospital encounter of 03/02/25 (from the past 24 hours) Glucose, Nova Meter Status: Abnormal Collection Time: 03/02/25 8:28 PM Result Value Ref Range POC-GLUCOSE 131 (H) 70 - 110 mg/dL Manager Administrative Services [id number] CBC (Hemogram only) Status: Abnormal Collection Time: [...] POC-GLUCOSE 130 (H) 70 - 110 mg/dL Manager Administrative Services [id number] Glucose, Nova Meter Status: None Collection Time: 03/03/25 10:35 AM Result Value Ref Range POC-GLUCOSE 104 70 - 110 mg/dL Manager Administrative Services [id number] Glucose, Nova Meter Status: Abnormal Collection Time: 03/03/25 4:04 PM Result Value Ref Range POC-GLUCOSE 125 (H) 70 - 110 mg/dL Manager Administrative Services [id number] Radiology: Radiology Results (last 3 days) Procedure Component Value Units Date/Time XR spine cervical 2 or 3 views - In process [[id number]] Resulted: 03/03/25 0944 Order Status: Sent Updated: 03/03/25 1007 This result has not been signed. Information might be incomplete. FL C-ARM < 1 HOUR [[id number]] Collected: 03/02/25 1443 Order Status: Completed Updated: 03/02/25 9234 Narrative: FLUOROSCOPY WITH FILMS HISTORY: C3-5 PCF [...] Discharge: (P) None Patient Discharge Goal: (P) Senior Living Facility Mandated Reporting: (P) Not applicable PT/OT/COMMUNITY WORKER Recommendations PT Recommendations: OT Recommendations: COMMUNITY WORKER Recommendations: CM consulted for rehab placement. Met with pt and family at bedside to discuss DCP. They state theycalled [facility] 2 weeks ago and requests a bed for after surgery. CM reached to liaison [employer] confirmed this. Referral sent via [facility] and she has been accepted for admission [...] NEUROMONITORING; Surgeon: Julio César Carvajal MD; Location: [facility]; Service: Neurological Surgery; Laterality: N/A; TUBAL LIGATION [...] Mobility Not assessed, patient ambulatory. Outcome Measures -[facility] Basic Mobility Inpatient Short Form How much [...] equipment discharge needs at this time. Goals Kxbsuw-ub-idt: By the target date, patient will perform igdwxf-sy-wjk with complete independence, utilizing no assistive device, to improve independence with bed mobility. Krx-ng-tnwhw: By the target date, patient will perform [...] PM EDT PT Evaluation Completed * Jose Mcnair OTR/Harman - 03/03/2025 2:16 PM EDT Images from the original note were not included. [facility] Inpatient Occupational Therapy [...] NEUROMONITORING; Surgeon: Julio César Carvajal MD; Location: [facility]; Service: Neurological Surgery; Laterality: N/A; TUBAL LIGATION [...] mobiltiy. Pain 0-10 SCALE Pain location: neck 8/10. Pain intervention: Medication (See eMAR). Response to [...] Flexion 4-/5 4-/5 Wrist Extension 4-/5 4-/5 Aircraft Structural Repairer Strength Good Good MMT tested at or below shoulder level secondary to spinal precautions. Coordination/Sensation Iffeak-bl-ticp: RAMANA (3) Minimal Impairment: Able to accomplish activity; slightly less than normal control, speed, and steadiness, SAMANTHA (3) Minimal Impairment: Able to accomplish activity; slightly less than normal control, speed, and steadiness Finger opposition: RAMANA (2) Moderate Impairment: Able to accomplish activity; movements are slow, awkward, and unsteady, RUE (3) Minimal Impairment: Able to accomplish [...] body dressing:Maximal Assistance Toileting:Maximal Assistance Outcome Measures [facility] Daily Living Functional Assessment How much help [...] (Minimal/Contact guard/Supervision/Setup) 4=None (Modified independent/Independent) The patient's [facility] raw score is 15. The patient currently has 56.46% functional impairment. Clinicians are most likely to recommend inpatient/SNF/termite helper care for patients with scores between 6-17, [...] safety. Pt completed functional mobility supported at with Mod A x 1. She required sta nding rest breaks and cuing to safely manage assistive device. The pt was seated in bedside chair. Physical therapist departed. OT provided pt with Educational OTADL Handout and AE including: freelance art director, sock aide, long handled shoehorn, and long [...] prior level of function. The patient's current AMPAC score of 15 would indicate that the patient will likely be appropriate for inpatient rehab/SNF/ residential care post hospitalization. Plan Recommendations Discharge recommendations: [...] 3:33 PM EDT OT Evaluation Completed * Chaplain Jennifer - 03/02/2025 6:32 AM [...] 03/02/2025 108 70 - 110 mg/dL Final Manager Administrative Services 03/02/2025 [id number] Final No image results found. Assessment & Plan Disease of spinal cord -to OR for scheduled procedure XIN, at risk History of breast cancer Hypertension Hypothyroidism History of AK (myocardial infarction) Coronary atherosclerosis of chinik coronary artery s/p stents - on plavix, last dose on 02/16/2025 Diabetes mellitus, type II - on Ozempic, last dose on 02/15/2025 CKD (chronic kidney disease), stage III Electronically signed by: Leslie Virgen PA-C, 03/02/2025 Cosigned by Julio César Carvajal MD at 03/02/2025 1:07 PM EDT documented in this encounter Consult Notes * Valencia Harmon MD - 03/02/2025 4:31 PM EDT [facility] MEDICINE ADMITTING H&P: PCP: Krishan Caldwell MD [...] of breast cancer Hypertension Hypothyroidism History of AK (myocardial infarction) Coronary atherosclerosis of chinik coronary artery s/p stents Diabetes mellitus, type [...] bilaterally. Abdomen: Soft. Nontender. Positive bowel sounds. TRANSMISSION TESTER: Still lethargic after surgery no follow [...] Range POC-GLUCOSE 108 70 - 110 mg/dL Manager Administrative Services [id number] Glucose, Nova Meter Collection Time: 03/02/25 10:34 AM Result Value Ref Range POC-GLUCOSE 100 70 - 110 mg/dL Manager Administrative Services [id number] FL C-ARM < 1 HOUR Result Date: [...] monitoring system was set up by a cook chill technician. Baseline MEPs and SSEPs were performed. [...] was then used to create 12 mm aeroplane pilot holes bilaterally. The holes were probed [...] to the screw heads bilaterally. A 7 Hungarian flat Avila-Cortez drain was then placed in [...] Plan of Care - Neelima Love - 03/05/2025 5:27 AM EDT Problem: Knowledge [...] by Marita Turcios RN Outcome: Progressing 03/04/2025 102 by Marita Turcios RN Outcome: Progressing Problem: Risk for Falls Goal: No falls during hospitalization Description: Patient will not fall during hospitalization. 03/04/2025 1028 by Marita Turcios RN Outcome: Progressing 03/04/20251027 by Marita Turcios RN Outcome: Progressing Problem: Knowledge Deficit Goal: Knowledge - personal safety Description: Patient will verbalize understanding of fall prevention. 03/04/2025 1028 by Marita Turcios RN Outcome: Progressing 03/04/2025 102 by Marita Turcios RN Outcome: Progressing Problem: [...] be minimized Outcome: Progressing * Plan of [facility] - Neelima Love - 03/04/2025 4:56 AM [...] AM EDT NOVA GLUCOSE POC Routine 03/04/2025 9:0 4 PM EDT NOVA GLUCOSE POC Routine 03/04/2025 [...] HOUR Routine 03/02/2025 9:5 6 AM EDT AR ARTHRD PST/PSTLAT TQ 1NTRSPC CRV BELW C2 SEGMENT 03/02/2025 7:28 AM EDT Disease of spinal cord (HCC) NOVA GLUCOSE POC Routine 03/02/2025 7:02 AM EDT TYPE AND SCREEN ([place] BKR) Routine 03/02/2025 6:59 AM EDT documented in this encounter Results * (ABNORMAL) Glucose, Nova Meter (03/05/2025 10:41 AM EDT) [facility] POC-GLUCOSE 119(H) 70 - 110 mg/dL 03/05/2025 10:43 AM EDT [facility] Comment: In the event of poor peripheral blood flow, venous or arterial blood should be used due to the potential of erroneous results. Notified Nurse RBV Manager Administrative Services [id number] 03/05/2025 10:43 AM EDT [facility] Blood WHOLE BLOOD / Unknown 03/05/2025 10:41 AM EDT 03/05/2025 10:43 AM EDT Narrative [facility] - 03/05/2025 10:43 AM EDT Manager Administrative Services ID is - [id number] us Julio César Carvajal MD POINT OF CARE TEST ORDERABLES Final Result [facility] [address] [phone] * (ABNORMAL) Basic Metabolic Panel (03/05/2025 9:37 AM EDT) Sodium 139 136 - 145 meq/L 03/05/2025 10:33 AM EDT [facility] Potassium 4.4 3.4 - 5.1 meq/L 03/05/2025 10:33 AM [facility] CO2 22 22 - 29 meq/L 03/05/2025 10:33 AM [facility] Chloride 108 98 - 112 meq/L 03/05/2025 10:33 AM [facility] Glucose 139(H) 82 - 115 mg/dL 03/05/2025 10:33 AM [facility] BUN 17.9 9.8 - 20.1 mg/dL 03/05/2025 10:33 AM [facility] Creatinine 1.20(H) 0.57 - 1.11 mg/dL 03/05/2025 10:33 AM [facility] BUN/Creatinine 15 8 - 20 03/05/2025 10:33 AM [facility] Calcium 8.8 8.4 - 10.2 mg/dL 03/05/2025 10:33 AM [facility] Anion Gap 13(H) 4 - 12 03/05/2025 10:33 AM [facility] eGFR (mL/min/1.73m2) 47(L) >=60 mL/min/1.7 3m2 03/05/2025 10:33 AM [facility] Comment:ESTIMATED GFR IS NOT ACCURATE CREATININE CLEARANCE IN PREDICTING GLOMERULAR FILTRATION RATE. ESTIMATED GFR IS NOT APPLICABLE FOR DIALYSIS PATIENTS. Osmolality Calc 281.7 mOsm/kg 10:33 AM [facility] Blood Venipuncture / Unknown 03/05/2025 9:37 AM EDT 03/05/2025 10:10 AM EDT us De Catalan PA-C LAB BLOOD ORDERABLES Final Res ult Performing Organization Address [facility] Co de Phone Number [facility] [address] [place] [address], [facility] [phone] * Glucose, Nova Meter (03/05/2025 5:56 AM EDT) POC-GLUCOSE 84 70 - 110 mg/dL 03/05/2025 5:57 AM EDT [facility] Comment: In the event of poor peripheral blood flow, venous or arterial blood should be used due to the potential of erroneous results. Notified Nurse RBV Manager Administrative Services [id number] 03/05/2025 5:57 AM EDT [facility] Blood WHOLE BLOOD / Unknown 03/05/2025 5:56 AM EDT 03/05/2025 5:57 AM EDT Narrative [facility] - 03/05/2025 5:57 AM EDT Manager Administrative Services ID is - [id number] us Julio César Carvajal MD POINT OF CARE TEST ORDERABLES Final Result Performing Organization Address [facility] Co de Phone Number [facility] [address] [place] [address], [facility] [phone] * Glucose, Nova Meter (03/04/2025 9:04 PM EDT) POC-GLUCOSE 99 70 - 110 mg/dL 03/04/2025 9:06 PM EDT [facility] Comment: In the event of poor peripheral blood flow, venous or arterial blood should be used due to the potential of erroneous results. Notified Nurse RBV Manager Administrative Services [phone] 03/04/2025 9:06 PM EDT [facility] Blood WHOLE BLOOD / Unknown 03/04/2025 9:04 PM EDT 03/04/2025 9:06 PM EDT Narrative [facility] - 03/04/2025 9:06 PM EDT Manager Administrative Services ID is - [id number] Julio César Carvajal MD POINT OF CARE TEST ORDERABLES Final Result Performing Organization Address City/[facility] Co de Phone Number [facility] [address] [phone] * Glucose, Nova Meter (03/04/2025 4:09 PM EDT) POC-GLUCOSE 110 70 - 110 mg/dL 03/04/2025 4:11 PM EDT [facility] Comment: In the event of poor peripheral blood flow, venous or arterial blood should be used due to the potential of erroneous results. Notified Nurse RBV Manager Administrative Services [id number] 03/04/2025 4:11 PM EDT [facility] Blood WHOLE BLOOD / Unknown 03/04/2025 4:09 PM EDT 03/04/2025 4:11 PM EDT [facility] - 03/04/2025 4:11 PM EDT Manager Administrative Services ID is - [id number] Julio César Carvajal MD POINT OF CARE TEST ORDERABLES Final Result Performing Organization Address City/[facility] Co de Phone Number [facility] [address] [phone] * (ABNORMAL) Glucose, Nova Meter (03/04/2025 10:29 AM EDT) POC-GLUCOSE 119(H) 70 - 110 mg/dL 03/04/2025 10:31 AM EDT [facility] Comment: In the event of poor peripheral blood flow, venous or arterial blood should be used due to the potential of erroneous results. Notified Nurse RBV Manager Administrative Services [phone] 03/04/2025 10:31 AM EDT [facility] Blood WHOLE BLOOD / Unknown 03/04/2025 10:29 AM EDT 03/04/2025 10:31 AM EDT [facility] - 03/04/2025 10:31 AM EDT Manager Administrative Services ID is - [id number] Julio César Carvajal MD POINT OF CARE TEST ORDERABLES Final Result [facility] [address] [phone] * Glucose, Nova Meter (03/04/2025 5:08 AM EDT) POC-GLUCOSE 99 70 - 110 mg/dL 03/04/2025 5:09 AM EDT [facility] Comment: In the event of poor peripheral blood flow, venous or arterial blood should be used due to the potential of erroneous results. Notified Nurse RBV Manager Administrative Services [id number] 03/04/2025 5:09 AM EDT [facility] Blood WHOLE BLOOD / Unknown 03/04/2025 5:08 AM EDT 03/04/2025 5:09 AM EDT [facility] - 03/04/2025 5:09 AM EDT Manager Administrative Services ID is - [id number] us Julio César Carvajal MD POINT OF CARE TEST ORDERABLES Final Result Performing Organization Address [facility] Co de Phone Number [facility] [address] [phone] * (ABNORMAL) Glucose, Nova Meter (03/03/2025 8:17 PM EDT) POC-GLUCOSE 121(H) 70 - 110 mg/dL 03/03/2025 8:18 PM EDT [facility] Comment: In the event of poor peripheral blood flow, venous or arterial blood should be used due to the potential of erroneous results. Notified Nurse RBV Manager Administrative Services [id number] 03/03/2025 8:18 PM EDT [facility] Blood WHOLE BLOOD / Unknown 03/03/2025 8:17 PM EDT 03/03/2025 8:18 PM EDT [facility] - 03/03/2025 8:18 PM EDT Manager Administrative Services ID is - [id number] Julio César Carvajal MD POINT OF CARE TEST ORDERABLES Final Result [facility] [address] [place] [address], [facility] [phone] * (ABNORMAL) Glucose, Nova Meter (03/03/2025 4:04 PM EDT) POC-GLUCOSE 125(H) 70 - 110 mg/dL 03/03/2025 4:06 PM EDT [facility] Comment: In the event of poor peripheral blood flow, venous or arterial blood should be used due to the potential of erroneous results. Notified Nurse RBV Manager Administrative Services [id number] 03/03/2025 4:06 PM EDT [facility] Blood WHOLE BLOOD / Unknown 03/03/2025 4:04 PM EDT 03/03/2025 4:06 PM EDT [facility] - 03/03/2025 4:06 PM EDT Manager Administrative Services ID is - [id number] us Julio César Carvajal MD POINT OF CARE TEST ORDERABLES Final Result [facility] [address] [place] [address], [facility] [phone] * Glucose, Nova Meter (03/03/2025 10:35 AM EDT) Pathologist [facility] POC-GLUCOSE 104 70 - 110 mg/dL 03/03/2025 10:37 AM EDT [facility] Comment: In the event of poor peripheral blood flow, venous or arterial blood should be used due to the potential of erroneous results. Notified Nurse RBV Manager Administrative Services [id number] 03/03/2025 10:37 AM EDT [facility] Blood WHOLE BLOOD / Unknown 03/03/2025 10:35 AM EDT 03/03/2025 10:37 AM EDT [facility] - 03/03/2025 10:37 AM EDT Manager Administrative Services ID is - [id number] Julio César Carvajal MD POINT OF CARE TEST ORDERABLES Final Result [facility] [address] [place] [address], [facility] [phone] * XR spine cervical 2 or 3 [...] Carolina Gant. Transcribed by Neelima Mancia PA-C. us Julio César Carvajal MD IMG DIAGNOSTIC IMAGING ORDERA BLES Final Result * (ABNORMAL) Glucose, Nova Meter (03/03/2025 5:39 AM EDT) POC-GLUCOSE 130(H) 70 - 110 mg/dL 03/03/2025 5:40 AM EDT [facility] Comment: In the event of poor peripheral blood flow, venous or arterial blood should be used due to the potential of erroneous results. Notified Nurse RBV Manager Administrative Services [id number] 03/03/2025 5:40 AM EDT [facility] Blood WHOLE BLOOD / Unknown 03/03/2025 5:39 AM EDT 03/03/2025 5:40 AM EDT Narrative [facility] - 03/03/2025 5:40 AM EDT Manager Administrative Services ID is - [id number] us Julio César Carvajal MD POINT OF CARE TEST ORDERABLES Final Result [facility] [address] [phone] * (ABNORMAL) Basic Metabolic Panel (03/03/2025 2:36 AM EDT) Sodium 141 136 - 145 meq/L 03/03/2025 3:28 AM EDT [facility] Potassium 5.0 3.4 - 5.1 meq/L 03/03/2025 3:28 AM EDT [facility] CO2 21(L) 22 - 29 meq/L 03/03/2025 3:28 AM EDT [facility] Chloride 109 98 - 112 meq/L 03/03/2025 3:28 AM EDT [facility] Glucose 125(H) 82 - 115 mg/dL 03/03/2025 3:28 AM EDT [facility] BUN 18.9 9.8 - 20.1 mg/dL 03/03/2025 3:28 AM EDT [facility] Creatinine 1.40(H) 0.57 - 1.11 mg/dL 03/03/2025 3:28 AM EDT [facility] BUN/Creatinine 14 8 - 20 03/03/2025 3:28 AM EDT [facility] Calcium 8.9 8.4 - 10.2 mg/dL 03/03/2025 3:28 AM EDT [facility] Anion Gap 16(H) 4 - 12 03/03/2025 3:28 AM EDT [facility] eGFR (mL/min/1.73m2) 39(L) >=60 mL/min/1.7 3m2 03/03/2025 3:28 AM EDT [facility] Comment:ESTIMATED GFR IS NOT ACCURATE CREATININE CLEARANCE IN PREDICTING GLOMERULAR FILTRATION RATE. ESTIMATED GFR IS NOT APPLICABLE FOR DIALYSIS PATIENTS. Osmolality Calc 285.0 mOsm/kg 3:28 AM EDT [facility] Blood Venipuncture / Unknown 03/03/2025 2:36 AM EDT 03/03/2025 2:53 AM EDT us Julio César Carvajal MD LAB BLOOD ORDERABLES Final Re sult [facility] [address] [phone] * (ABNORMAL) CBC (Hemogram only) (03/03/2025 2:36 AM EDT) WBC 9.9 4.0 - 10.0 K/ L 03/03/2025 2:57 AM EDT [facility] RBC 3.74(L) 3.93 - 5.22 M/ L 03/03/2025 2:57 AM EDT [facility] Hemoglobin 11.4 11.2 - 15.7 GM/DL 03/03/2025 2:57 AM EDT [facility] Hematocrit 34.8 34.1 - 44.9 % 03/03/2025 2:57 AM EDT [facility] MCV 93 79 - 95 fL 03/03/2025 2:57 AM EDT [facility] MCH 30.5 25.6 - 32.2 pg 03/03/2025 2:57 AM EDT [facility] MCHC 32.8 32.2 - 35.5 GM/DL 03/03/2025 2:57 AM EDT [facility] RDW 14.0 11.7 - 14.4 % 03/03/2025 2:57 AM EDT [facility] Platelets 172 140 - 375 K/CU MM 03/03/2025 2:57 AM EDT [facility] MPV 12.0 9.4 - 12.3 fL 03/03/2025 2:57 AM EDT [facility] Blood Venipuncture / Unknown 03/03/2025 2:36 AM EDT 03/03/2025 2:53 AM EDT us Julio César Carvajal MD LAB BLOOD ORDERABLES Final Re sult Performing Organization Address [facility]/ZIP Co de Phone Number [facility] [address] [phone] * (ABNORMAL) Glucose, Nova Meter (03/02/2025 8:28 PM EDT) POC-GLUCOSE 131(H) 70 - 110 mg/dL 03/02/2025 8:29 PM EDT [facility] Comment: In the event of poor peripheral blood flow, venous or arterial blood should be used due to the potential of erroneous results. Notified Nurse RBV Manager Administrative Services [id number] 03/02/2025 8:29 PM EDT [facility] Blood WHOLE BLOOD / Unknown 03/02/2025 8:28 PM EDT 03/02/2025 8:29 PM EDT Narrative [facility] - 03/02/2025 8:29 PM EDT Manager Administrative Services ID is - [id number] us Julio César Carvajal MD POINT OF CARE TEST ORDERABLES Final Result Performing Organization Address [facility] de Phone Number [facility] [address] [phone] * (ABNORMAL) Basic Metabolic Panel (03/02/2025 5:41 PM EDT) Sodium 142 136 - 145 meq/L 03/02/2025 6:24 PM EDT [facility] Potassium 4.4 3.4 - 5.1 meq/L 03/02/2025 6:24 PM EDT [facility] CO2 18(L) 22 - 29 meq/L 03/02/2025 6:24 PM EDT [facility] Chloride 109 98 - 112 meq/L 03/02/2025 6:24 PM EDT [facility] Glucose 109 82 - 115 mg/dL 03/02/2025 6:24 PM EDT [facility] BUN 21.3(H) 9.8 - 20.1 mg/dL 03/02/2025 6:24 PM EDT [facility] Creatinine 1.38(H) 0.57 - 1.11 mg/dL 03/02/2025 6:24 PM EDT [facility] BUN/Creatinine 15 8 - 20 03/02/2025 6:24 PM EDT [facility] Calcium 9.3 8.4 - 10.2 mg/dL 03/02/2025 6:24 PM EDT [facility] Anion Gap 19(H) 4 - 12 03/02/2025 6:24 PM EDT [facility] eGFR (mL/min/1.73m2) 40(L) >=60 mL/min/1.7 3m2 03/02/2025 6:24 PM EDT [facility] Comment:ESTIMATED GFR IS NOT ACCURATE CREATININE CLEARANCE IN PREDICTING GLOMERULAR FILTRATION RATE. ESTIMATED GFR IS NOT APPLICABLE FOR DIALYSIS PATIENTS. Osmolality Calc 286.8 mOsm/kg 6:24 PM EDT [facility] Blood Venipuncture / Unknown 03/02/2025 5:41 PM EDT 03/02/2025 5:57 PM EDT us Valencia Harmon MD LAB BLOOD ORDERABLES Final Resul t [facility] [address] [phone] * Glucose, Nova Meter (03/02/2025 10:34 AM EDT) POC-GLUCOSE 100 70 - 110 mg/dL 03/02/2025 10:35 AM EDT [facility] Comment: In the event of poor peripheral blood flow, venous or arterial blood should be used due to the potential of erroneous results. Notified Nurse RBV Manager Administrative Services [id number] 03/02/2025 10:35 AM EDT [facility] Blood WHOLE BLOOD / Unknown 03/02/2025 10:34 AM EDT 03/02/2025 10:35 AM EDT Narrative [facility] - 03/02/2025 10:35 AM EDT Manager Administrative Services ID is - [id number] Julio César Carvajal MD POINT OF CARE TEST ORDERABLES Final Result [facility] [address] [phone] * [place] C-ARM < 1 HOUR (03/02/2025 [...] by Dr. Aneesh Castillo. Transcribed by Maco Mailn PA-C. Julio César Carvajal MD IMG FLUOROSCOPY ORDERABLES Fi nal Result * Glucose, Nova Meter (03/02/2025 7:02 AM EDT) POC-GLUCOSE 108 70 - 110 mg/dL 03/02/2025 7:04 AM EDT [facility] Comment: In the event of poor peripheral blood flow, venous or arterial blood should be used due to the potential of erroneous results. Protocols Followed Manager Administrative Services [id number] 03/02/2025 7:04 AM EDT [facility] Blood WHOLE BLOOD / Unknown 03/02/2025 7:02 AM EDT 03/02/2025 7:04 AM EDT Narrative [facility] - 03/02/2025 7:04 AM EDT Manager Administrative Services ID is - [id number] us Julio César Carvajal MD POINT OF CARE TEST ORDERABLES Final Result [facility] [address] [phone] * Type and Screen (03/02/2025 6:59 AM EDT) ABO/Rh O Negative 03/02/2025 7:04 AM EDT [facility] [place] Antibody Screen Negative 03/02/2025 7:04 AM EDT [facility] [place] HISTCHK HIST CHECK PERFORMED 03/02/2025 7:04 AM EDT [facility] [place] Blood Venipuncture / Unknown 03/02/2025 6:59 AM EDT 03/02/2025 7:04 AM EDT us Shauna Valladares MD [facility] TEST ORDERA BLES Final Result Performing Organization Address [facility]/ZIP Co de Phone Number [facility] ([place]) [address] [place] [address] documented in this encounter Visit Diagnoses Diagnosis [...] mg Every Night, oral, First dose on [facility] 03/02/25 at 2100, Look-alike/Sound-alike medication Given 03/04/2025 8:50 PM EDT 25 mg Given 03/03/2025 8:47 PM EDT 25 mg Given 03/02/2025 9:24 PM EDT 25 mg insulin lispro (HUMALOG, ADMELOG) injection 0-6 Units 0-6 Units 4 times daily (before meals and nightly), subcutaneous, First dose on [facility] 03/02/25 at 1700, If Blood Sugar is less than 180 between 5821-4148, DO NOT give corrective insulin unless otherwise [...] First dose on [facility] 03/02/25 at 2100 2047 (Given - Provider: Neelima Love) 2050 (Given - Provider: Neelima Love) bisoprolol (ZEBETA) tablet 5 mg 5 mg Daily, oral, First dose on Thu03/02/25 at 1700 09 (Given - Provider: Nancy Celis RN) 08 (Given - Provider: Marita Turcios RN) 09 (Given - Provider: Marita Turcios, NANNETTE) docusate sodium (COLACE) capsule 100 mg 100 mg 2 times daily, oral, First dose on Thu03/02/25 at 1030, Bowel Regimen - for prevention of constipation., Phase II/On Unit 916 (Given - Provider: Nancy Celis RN)2046 (Given - Provider: Neelima Love) 827 (Given - Provider: Marita Turcios, NANNETTE)2049 (Given - Provider: Neelima Love) 09 (Given - Provider: Marita Turcios, NANNETTE) enoxaparin (LOVENOX) syringe 30 mg 30 mg Every 24 hours, subcutaneous, First dose on Thu03/02/25 at 1030, Renal dosing, Phase II/On Unit 103 (Given - Provider: Nancy Celis RN) 1007 (Given - Provider: Marita Turcios, NANNETTE) 1118 (Given - Provider: Marita Turcios, NANNETTE) famotidine (PEPCID) tablet 20 mg 20 mg Daily, oral, First dose (after last modification) on Thu03/03/25 at 0900, Per Renal Impairment Dosing Policy Pharmacist to renally dose if CrCl is less than 50 mL/min or on CRRT., Pre-op 916 (Given - Provider: Nancy Celis RN) 827 (Given - Provider: Marita Turcios RN) 09 (Given - Provider: Marita Turcios, NANNETTE) hydrOXYzine pamoate (VISTARIL) capsule 25 mg 25 mg Every Night, oral, First dose on Thu03/02/25 at 2100, Look-alike/Sound-alike medication 2046 (Given - Provider: Neelima Love) 2049 (Given - Provider: Neelima Love) insulin lispro (HUMALOG, ADMELOG) injection 0-6 Units 0-6 Units 4 times daily (before meals and nightly), subcutaneous, First dose on Thu03/02/25 at 1700, If Blood Sugar is less than 180 between 8101-0678, DO NOT give corrective insulin unless otherwise [...] Celis RN - Reason: Order parameters not met)1741 (Not Given - Provider: Dilma Lynch LPN - Reason: Order parameters not met)2037 (Not Given - Provider: Neelima Love - [...] 0917 (Given - Provider: Nancy Celis RN) 08 (Given - Provider: Marita Turcios, RN) 0930 (Given - Provider: Marita Turcios, RN) spironolactone (ALDACTONE) tablet 25 mg 25 mg Daily, oral, First dose on [facility] 03/02/25 at 1700, Caution: Recommend wearing gloves during administration. DO NOT BREAK/CRUSH/CHEW. Employees who are , trying to become , or should not handle this medication. Dispose of trace medication (including packaging) in the BLACK waste bin. 0917 (Given - Provider: Nancy Celis RN) 08 (Given - Provider: Marita Turcios, NANNETTE) 0930 (Given - Provider: Marita Turcios, NANNETTE) Continuous Medication Order 03/03/2025 03/04/2025 03/05/2025 lactated Ringer's infusion 100 mL/hr Continuous, intravenous, Starting on [facility] 03/02/25 at 0700, Pre-op sodium chloride 0.9 % infusion 100 mL/hr Continuous, intravenous, Starting on Thu03/02/25 at 1030, Phase II/On Unit sodium chloride 0.9 % infusion 100 mL/hr Continuous, intravenous, Starting on Thu03/03/25 at 0930, For 20 hours 0919 (New Bag - Provider: Nancy Celis RN) PRN Medication Order 03/03/2025 03/04/2025 03/05/2025 azelastine (ASTELIN) nasal spray 1 spray 1 spray 2 times daily PRN, each nostril, rhinitis, Starting on [facility] 03/02/25 at 1639, MULTI-DOSE ITEM Please store in patient med bin in [employer] after each use and transfer with patient [...] 0931 (See Alternative - Provider: Marita Turcios, RN) bisacodyL (DULCOLAX) suppository 10 mg(Linked Group 1) [...] [facility]ina 03/02/25 at 1007, Phase II/On Unit 6 (Given - Provider: Wendy Iniguez RN) 0829 [...] II/On Unit 1227 (Given - Provider: Marita Turcios, NANNETTE) oxyCODONE (ROXICODONE) immediate release tablet 5 mg [...] II/On Unit 0436 (Given - Provider: Wendy Iniguez, NANNETTE)1033 (Given - Provider: Nancy Celis, NANNETTE)2349 (Given - Provider: Neelima Love) 0828 (Given - Provider: Marita Turcios, NANNETTE)1440 (Given - Provider: Marita Turcios, NANNETTE)2050 (Given - Provider: Neelima Love) 1118 (Given - Provider: Marita Turcios RN) Linked Groups Order Group 1: bisacodyL (DULCOLAX) [...] Unit documented in this encounter Care Teams Cupola Repairer Relationship Specialty Start Date End Date Krishan Caldwell MD [address] [place] [id number] PCP - General Adolescent Medicine 03/02/25 documented as of this encounter
--- OUTSIDE RECORDS SUMMARY | 2025-03-02 07:28 | XMS_ITS | Encounter Summary ---
Author Organization [employer] ([place], [place], [place], [place]) Address [address] [place] [address] Care Team Providers Care Sharepoint Solutions Architect Name Role Phone Krishan Caldwell MD Primary Care Provider + [phone] Reason for Visit * Auth/Cert (Routine) Specialty Diagnoses / Procedures Referred By Contac t Referred To Contact Diagnoses Disease of spinal cord (HCC) SEE PRIMARY DX Procedures NM ARTHRD PST/PSTLAT TQ 1NTRSPC CRV BELW C2 SEGMENT NM ARTHRODESIS PST/PSTLAT TQ 1NTRSPC EA ADDL NTRSPC LAMINECTOMY, SPINE, CERVICAL, POSTERIOR APPROACH, WITH FUSION, PRONE POSITION [facility] Operating Room [address] [place] [address] Phone: tel: fax: [facility] Operating Room [address] [place] [address] Phone: tel: fax: Referral ID Status Reason Start Date Expiration Date Visits Re quested Visits Authorized [id number] 1 1 Encounter Details Date Type Department Care Team (Late st Contact Info) Description 03/02/2025 7:28 AM EDT Anesthesia Event [facility] Operating Room [address] [place] [address] Shauna Valladares MD [facility] [place] [address] Anesthesia Record Procedure Summary Procedure Name Responsible Anesthesiologist Anesthesia Start Time Anesthesia Stop Time C3-C5 POSTERIOR CERVICAL FUSION WITH NEUROMONITORING (Spine Cervical) Shauna Valladares MD 03/02/25 0728 03/02/25 1032 Events Date Time Event Comment 03/02/2025 0708 0728 An Start Patient identif ied and chart reviewed. 07 Pre-Induction Eval FDA anest hesia machine pre-use checkout completed. Patient status reassessed prior to start of anesthesia care. 0729 An Start Data Anesthesia mac olvin and [...] (XYLOCAINE) injection 2% 100 m g Lidocaine ([id number] KIT) laryngotrac heal topical soln 4% 0.5 [...] the past 12 months, has t he [employer], gas, oil, or water [employer] threatened to shut off services in your [...] Do you speak a language other than [place] [facility]? No 03/02/2025 Do you want help with [...] Procedure Summary Date: 03/02/25 Room / Location: [facility] OR [address] [place] [address] OPERATING ROOM Anesthesia Start: 727 Anesthesia Stop: [...] stable Hydration status: WDL PONV: none Color: Hamill Activity: Moves 4 extremities Inotropes/Vasopressors: N/A No [...] ANESTHESIA PREOPERATIVE EVALUATION Patient: Lavinia Iyer Date/Time: 03/02/25 07 Procedure: (C3-C5 POSTERIOR CERVICAL FUSION AND OTHER LEVELS TO BE DETERMINED WITH NEUROMONITORING ) Location: [facility] OR [address] [place] [address] OPERATING ROOM Surgeons: Julio César Carvajal MD [...] Cardiovascular and Mediastinum Hypertension Coronary atherosclerosis of [place] coronary artery Endocrine Hypothyroidism Diabetes mellitus, type II (HCC) Nervous and Auditory Cervical myelopathy (HCC) Genitourinary CKD (chronic kidney disease), stage III (HCC) Other History of breast cancer History of MD (myocardial infarction) Hyperlipidemia Stented coronary artery Past [...] last liquid: 03/02/25 Time of last liquid: 0 Date of last solid: 03/01/25 Time of [...] risks discussed with patient. Plan discussed with SUPERVISOR GRADING. documented in this encounter Plan of Treatment [...] mg documented in this encounter Care Teams Sharepoint Solutions Architect Relationship Specialty Start Date End Date Krishan Caldwell MD [address] [place] [address] PCP - General Adolescent Medicine 03/02/25 documented as of this encounter
--- OUTSIDE RECORDS SUMMARY | 2025-03-02 07:30 | XMS_ITS | Encounter Summary ---
Author Organization [employer] ([place], [place], [place], [place]) Address [address] [place] [address] Care Team Providers Care Rn School Name Role Phone Krishan Caldwell MD Primary Care Provider + [phone] Reason for Visit * Auth/Cert (Routine) Specialty Diagnoses / Procedures Referred By Contac t Referred To Contact Diagnoses Disease of spinal cord (HCC) SEE PRIMARY DX Procedures HI ARTHRD PST/PSTLAT TQ 1NTRSPC CRV BELW C2 SEGMENT HI ARTHRODESIS PST/PSTLAT TQ 1NTRSPC EA ADDL NTRSPC LAMINECTOMY, SPINE, CERVICAL, POSTERIOR APPROACH, WITH FUSION, PRONE POSITION [facility] Operating Room [address] [place] [address] Phone: tel: fax: [facility] Operating Room [address] [place] [address] Phone: tel: fax: Referral ID Status Reason Start Date Expiration Date Visits Re quested Visits Authorized [id number] 1 1 Encounter Details Date Type Department Care Team (Late st Contact Info) Description 03/02/2025 7:30 AM EDT - 03/02/2025 12:29 PM EDT Surgery [facility] Operating Room [address] [place] [address] Julio César Carvajal MD [address] [place] [address] C3-C5 POSTERIOR CERVICAL FUSION WITH NEUROMONITORING Social [...] living situation today? I have a [facility] place to live 03/02/2025 Think about [...] speak a language other than Citizen Of [place] at ho me? No 03/02/2025 Do you [...] Your Medications These medications were sent to [facility] - [place], [place] - [email or web address], [place] [address] cyclobenzaprine 5 MG tablet docusate sodium 100 MG capsule oxyCODONE-acetaminophen 5-325 mg per tablet Physical Exam GEN: NAD NEURO: GCS 465 4/5 throughout (effort and pain limited) Incision is clean, dry, and dressed C-collar in place Discharge Instructions Discharge Follow UP: Contact information for follow-up Julio César Carvajal MD Specialty: Neurosurgery, Neurological Surgery [address] [place] [address] Next Steps: Follow up Julio César Carvajal MD Specialty: Neurosurgery, Neurological Surgery [address] [place] [address] Next Steps: Follow up Electronically signed by Julio César Carvajal MD, 10/04/25, 9:38 AM EDT documented in this encounter [...] * How to Prevent Constipation After Surgery (Citizen [place]) * How to Use an Incentive Spirometer (Citizen [place]) documented in this encounter Medications at Time [...] up to 10 days. 30 tablet 03/04/2025 5 docusate sodium (COLACE) 100 MG capsule Take [...] César Carvajal MD Specialty: Neurosurgery, Neurological Surgery [address] [place] [address] Next Steps: Follow up Julio César Carvajal MD Specialty: Neurosurgery, Neurological Surgery [address] [place] [address] Next Steps: Follow up Transporation Provider: (P) FAMILY Transporation Contact Name: Transportation Provider Phone: Date of supervisor hot dip tinning: (P) 03/05/25 Time of supervisor hot dip tinning: LBM-03/05. Pt dc'd to [facility] via family. No other CM needs noted. [...] By: Name and Date of Assisted by: skin care technician Precautions Weight-Bearing Status: No Restrictions Precautions: [...] equipment discharge needs at this time. Goals Epqkqj-ys-rug: By the target date, patient will perform mpwsra-wb-qzd with complete independence, utilizing no assistive device, to improve independence with bed mobility. Tvu-fs-tdpdd: By the target date, patient will perform [...] By: Name and Date of Assisted by: skin care technician Precautions Weight-Bearing Status: No Restrictions Precautions: [...] equipment discharge needs at this time. Goals Njyhcz-hi-ilv: By the target date, patient will perform czdsgq-gz-tqz with complete independence, utilizing no assistive device, to improve independence with bed mobility. Ufr-rw-haksg: By the target date, patient will perform [...] Catalan PA-C - 03/04/2025 9:21 AM EDT [facility] PROGRESS NOTE: Patient: Lavinia Iyer Date: [...] of breast cancer Hypertension Hypothyroidism History of [place] (myocardial infarction) Coronary atherosclerosis of [place] coronary artery s/p stents Diabetes mellitus, type [...] room Previous Living Condition: Home Expected Disposition: [facility] Expected Discharge Date: Tomorrow, per neurosurgery Subjective [...] rhonchi. Abdomen: Soft, nontender/nondistended. Positive bowel sounds. HAT LINING BLOCKER: Alert oriented x4. No gross focal neuro deficits, blueprint blocker equal bilaterally, normal sensation. Musculoskeletal: Range of [...] Range POC-GLUCOSE 104 70 - 110 mg/dL Inking Machine Tender [id number] Glucose, Nova Meter Status: Abnormal Collection Time: 03/03/25 4:04 PM Result Value Ref Range POC-GLUCOSE 125 (H) 70 - 110 mg/dL Inking Machine Tender [id number] Glucose, Nova Meter Status: Abnormal Collection Time: 03/03/25 8:17 PM Result Value Ref Range POC-GLUCOSE 121 (H) 70 - 110 mg/dL Inking Machine Tender [id number] Glucose, Nova Meter Status: None Collection Time: 03/04/25 5:08 AM Result Value Ref Range POC-GLUCOSE 99 70 - 110 mg/dL Inking Machine Tender [id number] Radiology: Radiology Results (last 3 days) Procedure Component Value Units Date/Time XR spine cervical 2 or 3 views - In process [[id number]] Resulted: 03/03/25 0944 Order Status: Sent Updated: 03/03/25 1007 This result has not been signed. Information might be incomplete. FL C-ARM < 1 HOUR [[id number]] Collected: 03/02/25 1443 Order Status: Completed Updated: [...] note, since the hospital's version of the [employer] EMR requires attestations for mid-level providers. * Marbin Loya MD - 03/03/2025 6:49 PM EDT [facility] PROGRESS NOTE: Patient: Lavinia Iyer Date: [...] of breast cancer Hypertension Hypothyroidism History of [place] (myocardial infarction) Coronary atherosclerosis of [place] coronary artery s/p stents Diabetes mellitus, type [...] bilaterally. Abdomen: Soft. Nontender. Positive bowel sounds. HAT LINING BLOCKER: Alert oriented x3. No gross neurological focal [...] Daily Valencia Harmon MD 5 mg at 03/03/25 09 cyclobenzaprine (FLEXERIL) tablet 5 mg 5 mg [...] at 03/03/25 0919 100 mL/hr at 03/03/25 09 spironolactone (ALDACTONE) tablet 25 mg 25 mg oral Daily Valencia Harmon MD 25 mg at 03/03/25 0917 PRN Meds: @MEDSPRN@ Labs: Results for orders placed or performed during the hospital encounter of 03/02/25 (from the past 24 hours) Glucose, Nova Meter Status: Abnormal Collection Time: 03/02/25 8:28 PM Result Value Ref Range POC-GLUCOSE 131 (H) 70 - 110 mg/dL Inking Machine Tender [id number] CBC (Hemogram only) Status: Abnormal Collection Time: [...] POC-GLUCOSE 130 (H) 70 - 110 mg/dL Inking Machine Tender [id number] Glucose, Nova Meter Status: None Collection Time: 03/03/25 10:35 AM Result Value Ref Range POC-GLUCOSE 104 70 - 110 mg/dL Inking Machine Tender [id number] Glucose, Nova Meter Status: Abnormal Collection Time: 03/03/25 4:04 PM Result Value Ref Range POC-GLUCOSE 125 (H) 70 - 110 mg/dL Inking Machine Tender [id number] Radiology: Radiology Results (last 3 days) Procedure Component Value Units Date/Time XR spine cervical 2 or 3 views - In process [[id number]] Resulted: 03/03/25 0944 Order Status: Sent Updated: 03/03/25 1007 This result has not been signed. Information might be incomplete. FL C-ARM < 1 HOUR [[id number]] Collected: 03/02/25 1443 Order Status: Completed Updated: 03/02/25 1564 Narrative: FLUOROSCOPY WITH FILMS HISTORY: C3-5 PCF [...] Discharge: (P) None Patient Discharge Goal: (P) [facility] Mandated Reporting: (P) Not applicable PT/OT/TRUCK GUARD Recommendations PT Recommendations: OT Recommendations: TRUCK GUARD Recommendations: CM consulted for rehab placement. Met with pt and family at bedside to discuss DCP. They state theycalled [facility] 2 weeks ago and requests a bed for after surgery. CM reached to liaison [facility] confirmed this. Referral sent via [facility] and she has been accepted for admission after 3rd MNon Monday 03/05. Family will transport. Pt will also need to have a BM prior to DC. CM will follow. Gertrudis Garvin RN * Melania Johnson, PT - 03/03/2025 2:16 PM EDT Images from the original note were not included. Inpatient Physical Therapy Initial Evaluation Patient Name: Lavinia yIer Date of : 1950 Date of Evaluation: [...] NEUROMONITORING; Surgeon: Julio César Carvajal MD; Location: [facility]; Service: Neurological Surgery; Laterality: N/A; [...] Mobility Not assessed, patient ambulatory. Outcome Measures -[facility] Basic Mobility Inpatient Short Form [...] equipment discharge needs at this time. Goals Kbocxq-gs-qss: By the target date, patient will perform lqobje-jd-lvn with complete independence, utilizing no assistive device, to improve independence with bed mobility. Jns-ai-frxsk: By the target date, patient will perform [...] from the original note were not included. [facility] Inpatient Occupational Therapy [...] NEUROMONITORING; Surgeon: Julio César Carvajal MD; Location: [facility]; Service: Neurological Surgery; Laterality: N/A; [...] Flexion 4-/5 4-/5 Wrist Extension 4-/5 4-/5 Child Care Giver Strength Good Good MMT tested at or below shoulder level secondary to spinal precautions. Coordination/Sensation Xygmkg-mi-ljox: LULidia (3) Minimal Impairment: Able to accomplish activity; slightly less than normal control, speed, and steadiness, RULidia (3) Minimal Impairment: Able to accomplish activity; slightly less than normal control, speed, and steadiness Finger opposition: RAMANA (2) Moderate Impairment: Able to accomplish activity; movements are slow, awkward, and unsteady, SAMANTHA (3) Minimal Impairment: Able to accomplish [...] body dressing:Maximal Assistance Toileting:Maximal Assistance Outcome Measures [facility] Daily Living Functional Assessment How much help [...] (Minimal/Contact guard/Supervision/Setup) 4=None (Modified independent/Independent) The patient's [facility] raw score is 15. The patient currently has 56.46% functional impairment. Clinicians are most likely to recommend inpatient/SNF/group home care for patients with scores between 6-17, [...] with Educational OTADL Handout and AE including: botany technician, sock aide, long handled shoehorn, and long [...] will likely be appropriate for inpatient rehab/SNF/ long term care pharmacist care post hospitalization. Plan Recommendations Discharge recommendations: [...] 03/02/2025 108 70 - 110 mg/dL Final Inking Machine Tender 03/02/2025 [id number] Final No image results found. Assessment & Plan Disease of spinal cord -to OR for scheduled procedure XIN, at risk History of breast cancer Hypertension Hypothyroidism History of [place] (myocardial infarction) Coronary atherosclerosis of [place] coronary artery s/p stents - on plavix, last dose on 02/16/2025 Diabetes mellitus, type II - on Ozempic, last dose on 02/15/2025 CKD (chronic kidney disease), stage III Electronically signed by: Leslie Virgen PA-C, 03/02/2025 Cosigned by Julio César Carvajal MD at 03/02/2025 1:07 PM EDT documented in this encounter Consult Notes * Valencia Harmon MD - 03/02/2025 4:31 PM EDT [facility] ADMITTING H&P: PCP: Krishan Caldwell MD [...] of breast cancer Hypertension Hypothyroidism History of [place] (myocardial infarction) Coronary atherosclerosis of [place] coronary artery s/p stents Diabetes mellitus, type [...] bilaterally. Abdomen: Soft. Nontender. Positive bowel sounds. HAT LINING BLOCKER: Still lethargic after surgery no follow command [...] Range POC-GLUCOSE 108 70 - 110 mg/dL Inking Machine Tender [id number] Glucose, Nova Meter Collection Time: 03/02/25 10:34 AM Result Value Ref Range POC-GLUCOSE 100 70 - 110 mg/dL Inking Machine Tender [id number] FL C-ARM < 1 HOUR Result Date: [...] monitoring system was set up by a pump house technician. Baseline MEPs and SSEPs were performed. [...] was then used to create 12 mm pilot plant operator helper holes bilaterally. The holes were probed and [...] to the screw heads bilaterally. A 7 Vietnamese flat Avila-Cortez drain was then placed in [...] be minimized Outcome: Progressing * Plan of [facility] Neelima Love - 03/04/2025 4:56 AM [...] HOUR Routine 03/02/2025 9:5 6 AM EDT HI ARTHRD PST/PSTLAT TQ 1NTRSPC CRV BELW C2 SEGMENT 03/02/2025 7:28 AM EDT Disease of spinal cord (HCC) NOVA GLUCOSE POC Routine 03/02/2025 7:02 AM EDT TYPE AND SCREEN ([place] BKR) Routine 03/02/2025 6:59 AM EDT documented in this encounter Results * (ABNORMAL) Glucose, Nova Meter (03/05/2025 10:41 AM EDT) [facility] POC-GLUCOSE 119(H) 70 - 110 mg/dL 03/05/2025 10:43 AM EDT [facility] Comment: In the event of poor peripheral blood flow, venous or arterial blood should be used due to the potential of erroneous results. Notified Nurse RBV Inking Machine Tender [id number] 03/05/2025 10:43 AM EDT [facility] Blood WHOLE BLOOD / Unknown 03/05/2025 10:41 AM EDT 03/05/2025 10:43 AM EDT Narrative [facility] - 03/05/2025 10:43 AM EDT Inking Machine Tender ID is - [id number] us Julio César Carvajal MD POINT OF CARE TEST ORDERABLES Final Result [facility] [address] [phone] * (ABNORMAL) Basic Metabolic Panel (03/05/2025 9:37 AM EDT) Sodium 139 136 - 145 meq/L 03/05/2025 10:33 AM EDT [facility] Potassium 4.4 3.4 - 5.1 meq/L 03/05/2025 10:33 AM [facility] CO2 22 22 - 29 meq/L 03/05/2025 10:33 AM [facility] Chloride 108 98 - 112 meq/L 03/05/2025 10:33 AM [facility] Glucose 139(H) 82 - 115 mg/dL 03/05/2025 10:33 AM [facility] BUN 17.9 9.8 - 20.1 mg/dL 03/05/2025 10:33 AM [facility] Creatinine 1.20(H) 0.57 - 1.11 mg/dL 03/05/2025 10:33 AM [facility] BUN/Creatinine 15 8 - 20 03/05/2025 10:33 AM [facility] Calcium 8.8 8.4 - 10.2 mg/dL 03/05/2025 10:33 AM [facility] Anion Gap 13(H) 4 - 12 03/05/2025 10:33 AM [facility] eGFR (mL/min/1.73m2) 47(L) >=60 mL/min/1.7 3m2 03/05/2025 10:33 AM [facility] Comment:ESTIMATED GFR IS NOT ACCURATE CREATININE CLEARANCE IN PREDICTING GLOMERULAR FILTRATION RATE. ESTIMATED GFR IS NOT APPLICABLE FOR DIALYSIS PATIENTS. Osmolality Calc 281.7 mOsm/kg 10:33 AM [facility] Blood Venipuncture / Unknown 03/05/2025 9:37 AM EDT 03/05/2025 10:10 AM EDT us De Catalan PA-C LAB BLOOD ORDERABLES Final Res ult Performing Organization Address [facility]/ZIP Co de Phone Number [facility] [address] [place] [address], [facility] [phone] * Glucose, Nova Meter (03/05/2025 5:56 AM EDT) POC-GLUCOSE 84 70 - 110 mg/dL 03/05/2025 5:57 AM EDT [facility] Comment: In the event of poor peripheral blood flow, venous or arterial blood should be used due to the potential of erroneous results. Notified Nurse RBV Inking Machine Tender [id number] 03/05/2025 5:57 AM EDT [facility] Blood WHOLE BLOOD / Unknown 03/05/2025 5:56 AM EDT 03/05/2025 5:57 AM EDT [facility] - 03/05/2025 5:57 AM EDT Inking Machine Tender ID is - [id number] us Julio César Carvajal MD POINT OF CARE TEST ORDERABLES Final Result Performing Organization Address [facility]/ZIP Co de Phone Number [facility] [address] [place] [address], [facility] [phone] * Glucose, Nova Meter (03/04/2025 9:04 PM EDT) POC-GLUCOSE 99 70 - 110 mg/dL 03/04/2025 9:06 PM EDT [facility] Comment: In the event of poor peripheral blood flow, venous or arterial blood should be used due to the potential of erroneous results. Notified Nurse RBV Inking Machine Tender [id number] 03/04/2025 9:06 PM EDT [facility] Blood WHOLE BLOOD / Unknown 03/04/2025 9:04 PM EDT 03/04/2025 9:06 PM EDT Narrative [facility] - 03/04/2025 9:06 PM EDT Inking Machine Tender ID is - [id number] us Julio César Carvajal MD POINT OF CARE TEST ORDERABLES Final Result Performing Organization Address City/[facility]/ZIP Co de Phone Number [facility] [address] [phone] * Glucose, Nova Meter (03/04/2025 4:09 PM EDT) POC-GLUCOSE 110 70 - 110 mg/dL 03/04/2025 4:11 PM EDT [facility] Comment: In the event of poor peripheral blood flow, venous or arterial blood should be used due to the potential of erroneous results. Notified Nurse RBV Inking Machine Tender [id number] 03/04/2025 4:11 PM EDT [facility] Blood WHOLE BLOOD / Unknown 03/04/2025 4:09 PM EDT 03/04/2025 4:11 PM EDT [facility] - 03/04/2025 4:11 PM EDT Inking Machine Tender ID is - [id number] us Julio César Carvajal MD POINT OF CARE TEST ORDERABLES Final Result Performing Organization Address [facility] Co de Phone Number [facility] [address] [phone] * (ABNORMAL) Glucose, Nova Meter (03/04/2025 10:29 AM EDT) POC-GLUCOSE 119(H) 70 - 110 mg/dL 03/04/2025 10:31 AM EDT [facility] Comment: In the event of poor peripheral blood flow, venous or arterial blood should be used due to the potential of erroneous results. Notified Nurse RBV Inking Machine Tender [id number] 03/04/2025 10:31 AM EDT [facility] Blood WHOLE BLOOD / Unknown 03/04/2025 10:29 AM EDT 03/04/2025 10:31 AM EDT [facility] - 03/04/2025 10:31 AM EDT Inking Machine Tender ID is - [id number] us Julio César Carvajal MD POINT OF CARE TEST ORDERABLES Final Result [facility] [address] [phone] * Glucose, Nova Meter (03/04/2025 5:08 AM EDT) POC-GLUCOSE 99 70 - 110 mg/dL 03/04/2025 5:09 AM EDT [facility] Comment: In the event of poor peripheral blood flow, venous or arterial blood should be used due to the potential of erroneous results. Notified Nurse RBV Inking Machine Tender [id number] 03/04/2025 5:09 AM EDT [facility] Blood WHOLE BLOOD / Unknown 03/04/2025 5:08 AM EDT 03/04/2025 5:09 AM EDT [facility] - 03/04/2025 5:09 AM EDT Inking Machine Tender ID is - [id number] us Julio César Carvajal MD POINT OF CARE TEST ORDERABLES Final Result Performing Organization Address City/[facility] Co de Phone Number [facility] [address] [place] [address], [facility] [phone] * (ABNORMAL) Glucose, Nova Meter (03/03/2025 8:17 PM EDT) POC-GLUCOSE 121(H) 70 - 110 mg/dL 03/03/2025 8:18 PM EDT [facility] Comment: In the event of poor peripheral blood flow, venous or arterial blood should be used due to the potential of erroneous results. Notified Nurse RBV Inking Machine Tender [id number] 03/03/2025 8:18 PM EDT [facility] Blood WHOLE BLOOD / Unknown 03/03/2025 8:17 PM EDT 03/03/2025 8:18 PM EDT [facility] - 03/03/2025 8:18 PM EDT Inking Machine Tender ID is - [id number] Julio César Carvajal MD POINT OF CARE TEST ORDERABLES Final Result [facility] [address] [phone] * (ABNORMAL) Glucose, Nova Meter (03/03/2025 4:04 PM EDT) POC-GLUCOSE 125(H) 70 - 110 mg/dL 03/03/2025 4:06 PM EDT [facility] Comment: In the event of poor peripheral blood flow, venous or arterial blood should be used due to the potential of erroneous results. Notified Nurse RBV Inking Machine Tender [id number] 03/03/2025 4:06 PM EDT [facility] Blood WHOLE BLOOD / Unknown 03/03/2025 4:04 PM EDT 03/03/2025 4:06 PM EDT [facility] - 03/03/2025 4:06 PM EDT Inking Machine Tender ID is - [id number] us Julio César Carvajal MD POINT OF CARE TEST ORDERABLES Final Result Performing Organization Address City/[facility]/ZIP Co de Phone Number [facility] [address] [place] [address], [facility] [phone] * Glucose, Nova Meter (03/03/2025 10:35 AM EDT) Pathologist [facility] POC-GLUCOSE 104 70 - 110 mg/dL 03/03/2025 10:37 AM EDT [facility] Comment: In the event of poor peripheral blood flow, venous or arterial blood should be used due to the potential of erroneous results. Notified Nurse RBV Inking Machine Tender [id number] 03/03/2025 10:37 AM EDT [facility] Blood WHOLE BLOOD / Unknown 03/03/2025 10:35 AM EDT 03/03/2025 10:37 AM EDT [facility] - 03/03/2025 10:37 AM EDT Inking Machine Tender ID is - [id number] Julio César Carvajal MD POINT OF CARE TEST ORDERABLES Final Result [facility] [address] [phone] * XR spine cervical 2 or 3 [...] - 110 mg/dL 03/03/2025 5:40 AM EDT [facility] Comment: In the event of poor peripheral blood flow, venous or arterial blood should be used due to the potential of erroneous results. Notified Nurse RBV Inking Machine Tender [id number] 03/03/2025 5:40 AM EDT [facility] Blood WHOLE BLOOD / Unknown 03/03/2025 5:39 AM EDT 03/03/2025 5:40 AM EDT Narrative [facility] - 03/03/2025 5:40 AM EDT Inking Machine Tender ID is - [id number] us Julio César Carvajal MD POINT OF CARE TEST ORDERABLES Final Result [facility] [address] [phone] * (ABNORMAL) Basic Metabolic Panel (03/03/2025 2:36 AM EDT) Sodium 141 136 - 145 meq/L 03/03/2025 3:28 AM EDT [facility] Potassium 5.0 3.4 - 5.1 meq/L 03/03/2025 3:28 AM EDT [facility] CO2 21(L) 22 - 29 meq/L 03/03/2025 3:28 AM EDT [facility] Chloride 109 98 - 112 meq/L 03/03/2025 3:28 AM EDT [facility] Glucose 125(H) 82 - 115 mg/dL 03/03/2025 3:28 AM EDT [facility] BUN 18.9 9.8 - 20.1 mg/dL 03/03/2025 3:28 AM EDT [facility] Creatinine 1.40(H) 0.57 - 1.11 mg/dL 03/03/2025 3:28 AM EDT [facility] BUN/Creatinine 14 8 - 20 03/03/2025 3:28 AM EDT [facility] Calcium 8.9 8.4 - 10.2 mg/dL 03/03/2025 3:28 AM EDT [facility] Anion Gap 16(H) 4 - 12 03/03/2025 3:28 AM EDT [facility] eGFR (mL/min/1.73m2) 39(L) >=60 mL/min/1.7 3m2 03/03/2025 3:28 AM EDT [facility] Comment:ESTIMATED GFR IS NOT ACCURATE CREATININE CLEARANCE IN PREDICTING GLOMERULAR FILTRATION RATE. ESTIMATED GFR IS NOT APPLICABLE FOR DIALYSIS PATIENTS. Osmolality Calc 285.0 mOsm/kg 3:28 AM EDT [facility] Blood Venipuncture / Unknown 03/03/2025 2:36 AM EDT 03/03/2025 2:53 AM EDT us Julio César Carvajal MD LAB BLOOD ORDERABLES Final Re sult [facility] [address] [phone] * (ABNORMAL) CBC (Hemogram only) (03/03/2025 2:36 AM EDT) WBC 9.9 4.0 - 10.0 K/ L 03/03/2025 2:57 AM EDT [facility] RBC 3.74(L) 3.93 - 5.22 M/ L 03/03/2025 2:57 AM EDT [facility] [facility] Hemoglobin 11.4 11.2 - 15.7 GM/DL 03/03/2025 2:57 AM EDT [facility] Hematocrit 34.8 34.1 - 44.9 % 03/03/2025 2:57 AM EDT [facility] MCV 93 79 - 95 fL 03/03/2025 2:57 AM EDT [facility] MCH 30.5 25.6 - 32.2 pg 03/03/2025 2:57 AM EDT [facility] MCHC 32.8 32.2 - 35.5 GM/DL 03/03/2025 2:57 AM EDT [facility] RDW 14.0 11.7 - 14.4 % 03/03/2025 2:57 AM EDT [facility] Platelets 172 140 - 375 K/CU MM 03/03/2025 2:57 AM EDT [facility] MPV 12.0 9.4 - 12.3 fL 03/03/2025 2:57 AM EDT [facility] Blood Venipuncture / Unknown 03/03/2025 2:36 AM EDT 03/03/2025 2:53 AM EDT us Julio César Carvajal MD LAB BLOOD ORDERABLES Final Re sult Performing Organization Address [facility]/ZIP Co de Phone Number [facility] [address] [phone] * (ABNORMAL) Glucose, Nova Meter (03/02/2025 8:28 PM EDT) POC-GLUCOSE 131(H) 70 - 110 mg/dL 03/02/2025 8:29 PM EDT [facility] Comment: In the event of poor peripheral blood flow, venous or arterial blood should be used due to the potential of erroneous results. Notified Nurse RBV Inking Machine Tender [id number] 03/02/2025 8:29 PM EDT [facility] Blood WHOLE BLOOD / Unknown 03/02/2025 8:28 PM EDT 03/02/2025 8:29 PM EDT Narrative [facility] - 03/02/2025 8:29 PM EDT Inking Machine Tender ID is - [id number] us Julio César Carvajal MD POINT OF CARE TEST ORDERABLES Final Result Performing Organization Address [facility] Co de Phone Number [facility] [address] [phone] * (ABNORMAL) Basic Metabolic Panel (03/02/2025 5:41 PM EDT) Sodium 142 136 - 145 meq/L 03/02/2025 6:24 PM EDT [facility] Potassium 4.4 3.4 - 5.1 meq/L 03/02/2025 6:24 PM EDT [facility] CO2 18(L) 22 - 29 meq/L 03/02/2025 6:24 PM EDT [facility] Chloride 109 98 - 112 meq/L 03/02/2025 6:24 PM EDT [facility] Glucose 109 82 - 115 mg/dL 03/02/2025 6:24 PM EDT [facility] BUN 21.3(H) 9.8 - 20.1 mg/dL 03/02/2025 6:24 PM EDT [facility] Creatinine 1.38(H) 0.57 - 1.11 mg/dL 03/02/2025 6:24 PM EDT [facility] BUN/Creatinine 15 8 - 20 03/02/2025 6:24 PM EDT [facility] Calcium 9.3 8.4 - 10.2 mg/dL 03/02/2025 6:24 PM EDT [facility] Anion Gap 19(H) 4 - 12 03/02/2025 6:24 PM EDT [facility] eGFR (mL/min/1.73m2) 40(L) >=60 mL/min/1.7 3m2 03/02/2025 6:24 PM EDT [facility] Comment:ESTIMATED GFR IS NOT ACCURATE CREATININE CLEARANCE IN PREDICTING GLOMERULAR FILTRATION RATE. ESTIMATED GFR IS NOT APPLICABLE FOR DIALYSIS PATIENTS. Osmolality Calc 286.8 mOsm/kg 6:24 PM EDT [facility] Blood Venipuncture / Unknown 03/02/2025 5:41 PM EDT 03/02/2025 5:57 PM EDT us Valencia Harmon MD LAB BLOOD ORDERABLES Final Resul t [facility] [address] [phone] * Glucose, Nova Meter (03/02/2025 10:34 AM EDT) POC-GLUCOSE 100 70 - 110 mg/dL 03/02/2025 10:35 AM EDT [facility] Comment: In the event of poor peripheral blood flow, venous or arterial blood should be used due to the potential of erroneous results. Notified Nurse RBV Inking Machine Tender [id number] 03/02/2025 10:35 AM EDT [facility] Blood WHOLE BLOOD / Unknown 03/02/2025 10:34 AM EDT 03/02/2025 10:35 AM EDT Narrative [facility] - 03/02/2025 10:35 AM EDT Inking Machine Tender ID is - [id number] Julio César Carvajal MD POINT OF CARE TEST ORDERABLES Final Result [facility] [address] [phone] * [place] C-ARM < 1 HOUR (03/02/2025 [...] - 110 mg/dL 03/02/2025 7:04 AM EDT [facility] Comment: In the event of poor peripheral blood flow, venous or arterial blood should be used due to the potential of erroneous results. Protocols Followed Inking Machine Tender [id number] 03/02/2025 7:04 AM EDT [facility] Blood WHOLE BLOOD / Unknown 03/02/2025 7:02 AM EDT 03/02/2025 7:04 AM EDT Narrative [facility] - 03/02/2025 7:04 AM EDT Inking Machine Tender ID is - [id number] us Julio César Carvajal MD POINT OF CARE TEST ORDERABLES Final Result Performing Organization Address City/[facility]/ZIP Co de Phone Number [facility] [address] [phone] * Type and Screen (03/02/2025 6:59 AM EDT) ABO/Rh O Negative 03/02/2025 7:04 AM EDT [facility] [place] Antibody Screen Negative 03/02/2025 7:04 AM EDT [facility] ([place]) HISTCHK HIST CHECK PERFORMED 03/02/2025 7:04 AM EDT [facility] ([place]) Blood Venipuncture / Unknown 03/02/2025 6:59 AM EDT 03/02/2025 7:04 AM EDT us Shauna Valladares MD [facility] TEST ORDERA BLES Final Result Performing Organization Address City/[facility]/ZIP Co de Phone Number [facility] ([place]) [address] [phone] documented in this encounter Visit Diagnoses Diagnosis [...] Every 6 hours, oral, First dose on Thu03/02/25 at 1030, Recommended maximum dose of acetaminophen [...] pressure (specify), sbp > 160, Starting on Thu03/02/25 at 1643, Hold if SBP < 100 [...] Blood Sugar is less than 180 between 6614-2139, DO NOT give corrective insulin unless otherwise [...] Reason: Patient/family refused)1007 (Given - Provider: Marita Turcios, NANNETTE)1720 (Not Given - Provider: Marita Turcios RN [...] Celis RN)2046 (Given - Provider: Neelima Love) 08 (Given - Provider: Marita Turcios RN)2049 (Given - Provider: Neelima Love) 0930 (Given - Provider: Marita Turcios RN) enoxaparin (LOVENOX) syringe 30 mg 30 mg Every 24 hours, subcutaneous, First dose on Dina 03/02/25 at 1030, Renal dosing, Phase II/On Unit 1033 (Given - Provider: Nancy Celis RN) 1007 (Given - Provider: Marita Turcios RN) 1118 (Given - Provider: Marita Turcios RN) famotidine (PEPCID) tablet 20 mg 20 mg Daily, oral, First dose (after last modification) on Thu03/03/25 at 0900, Per Renal Impairment Dosing Policy Pharmacist to renally dose if CrCl is less than 50 mL/min or on CRRT., Pre-op 09 (Given - Provider: Nancy Celis RN) 0828 (Given - Provider: Marita Turcios RN) 0930 (Given - Provider: Marita Turcios RN) hydrOXYzine pamoate (VISTARIL) capsule 25 mg [...] Blood Sugar is less than 180 between 5026-3233, DO NOT give corrective insulin unless otherwise [...] 2 tablet Daily, oral, First dose on Thu03/02/25 at 1700 0917 (Given - Provider: Nancy Celis RN) 0829 (Given - Provider: Marita Turcios RN) 0930 (Given - Provider: Marita Turcios RN) spironolactone (ALDACTONE) tablet 25 mg 25 mg Daily, oral, First dose on Thu03/02/25 at 1700, Caution: Recommend wearing gloves during [...] mL/hr Continuous, intravenous, Starting on Thu03/02/25 at 0700, Pre-op sodium chloride 0.9 % [...] daily PRN, each nostril, rhinitis, Starting on Thu25 at 1639, MULTI-DOSE ITEM Please store in patient med bin in Pyxis after each use and transfer with patient [...] Daily as needed, rectal, constipation, Starting on Thu03/02/25 at 1007, 1st line for treatment of [...] daily PRN, oral, muscle spasms, Starting on Thu03/02/25 at 1007, Phase II/On Unit 0436 (Given - Provider: Wendy Iniguez RN) 0829 [...] per order. 1848 (Given - Provider: Marita Turcios, RN) ondansetron (ZOFRAN) injection 4 mg(Linked Group [...] Marita Turcios RN)1440 (Given - Provider: Marita Turcios RN)2050 (Given - Provider: Neelima Love) 1118 (Given [...] Unit documented in this encounter Care Teams Rn School Relationship Specialty Start Date End Date Krishan Caldwell MD [address] [place] [address] PCP - General Adolescent Medicine 03/02/25 documented as of this encounter
--- OUTSIDE RECORDS SUMMARY | 2025-03-07 05:15 | XMS_ITS ---
Author Organization [facility] Address [address] [place] [address] Care Team Providers Care Telecom Engineer Name Role Phone Krishan Caldwell Primary Care Provider [phone] Christa Mcleod Unavailable [phone] Allergies Allergen (clinical drug ingredient) Drug/Non Drug Allergy documented on EMR Reaction Allergy Type Onset Date Status niacin Niacin Unknown Drug Allergy Active REASON FOR VISIT [place] History and Physical Medications Medication SIG (Take, [...] W/U Status Risk Notes Problem Essential hypertension (77216600) Essential hypertension (I10) Active confirmed Problem Anemia (070700100) Mild anemia (D64.9) Active confirmed Problem Vitamin D deficiency (06241244) Vitamin D deficiency (E55.9) Active confirmed Problem Hypothyroidism (38667439) Unspecified hypothyroidism (E03.9) Active confirmed Vital Signs Temperature 98.3 degrees Fahrenheit 03/07/20 25 Heart Rate 83 /min 03/07/2025 Blood pressure systolic 149 mm Hg 03/07/20 25 Blood pressure diastolic 73 mm Hg 025 Height 65 in 03/07/2025 Weight 178.8 lbs 03/07/2025 BMI 29.75 kg/m2 03/07/2025 Encounters Encounter Location Date Provider Diagnosis [address] [address] 03/07/2025 Christa Shani S/P cervical spinal fusion [...] 1-2 weeks, Reason : Provider Name:Krishan Caldwell, 04/12/2025 09:30:00 AM, [address], [address], [place], [address], Progress Notes * Lavinia IYER ADOB:1950 (74 yo F)Acc No.[id number]:03/07/2025 Patient: Lavinia FERRELL Provider: MARIUSZ Belcher :1950 A ge:74 Y S ex:Female Date:03/07/2025 Address:[address] [place] [address] [place], [id number] Pcp:Krishan Caldwell Subjective: * Chief Complaints: * 1 . [place] History and Physical. * HPI: I [place] History: Seen today at [place] for transition from [facility] following posterior cervical fusion of C3-5. [...] Belcher Date: Generated for Sobeida rosenberg/Jena/eTbowensmitting on: 09:43 PM EDT History and Physical Notes [...]
[2025-03-15] VITALS (7 sets, daily range): BP systolic 149–195; BP diastolic 69–97; PULSE 80–95; RESP 17; TEMP 37; O2SAT 92–96; BMI 27.1
--- OUTSIDE RECORDS SUMMARY | 2025-03-15 21:43 | XMS_ITS | Encounter Summary ---
Author Organization [employer] ([place], [place], [place], [place]) Address [address] [place] [address] Care Team Providers Care Tank Operator Name Role Phone Krishan Caldwell MD Primary Care Provider + [phone] Encounter Details Date Type Department Care Team (Latest Contact Info) Description 03/02/2025 Travel Social History Tobacco Use Types Packs/Day Years [...] Never 03/02/2025 How often does anyone, abiel lucita family and friends, insult or talk down to you? Never 03/02/2025 How often does anyone, abiel landrum family and friends, threaten you with harm? Never 03/02/2025 How often does anyone, shahbazvalencia landrum family and friends, scream or curse [...] Do you speak a language other than Lithuanian at [facility]? No 03/02/2025 Do you want help with [...] on file documented as of this encounter Plan of Treatment Not on file documented as of this encounter Visit Diagnoses Not on filedocumented in this encounter Care Teams Tank Operator Relationship Specialty Start Date End Date Krishan Caldwell MD [address] [place] [address] PCP - General Adolescent Medicine 03/02/25 documented as of this encounter
--- OUTSIDE RECORDS SUMMARY | 2025-03-15 21:43 | XMS_ITS | Encounter Summary ---
Author Organization [employer] ([place], [place], [place], [place]) Address [address] [place] [address] Care Team Providers Care Senior Technical Support Analyst Name Role Phone Unavailable Primary Care Provider Unavailabl e Encounter Details Date Type Department Care Team (Latest Contact Info) Description 02/24/2025 Travel Social History Tobacco Use Types Packs/Day [...]
--- OUTSIDE RECORDS SUMMARY | 2025-03-15 21:44 | XMS_ITS | Patient Health Record ---
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 Role Phone Krishan Caldwell Primary Care Provider Christa Mcleod Unavailable [phone] Migration, Provider Unavailable Unavailable Allergies Allergen (clinical drug ingredient) Drug/Non Drug Allergy documented on EMR Reaction Allergy Type Onset Date Status niacin Niacin Unknown Drug Allergy Active Results Component Value Reference Range Notes M-Thyroid Panel Reviewed date:05/05/2024 12:28:12 PM Interpretation: Performing Lab: Notes/Report: FTI 3.4 5.93-13.13 ug/dL T4 9.5 5.53-11.0 ug/dl T3U 36 23.5-40.5 % TSH < 0.02 0.465-4.68 uIU/mL M-Lipid Panel Reviewed date:05/05/2024 12:28:12 PM Interpretation: [...] HDL 38 40-60 mg/dl CHLHDL 2.8 1-3.5 M-Drug Screen,Urine Reviewed date:08/01/2024 05:08:21 PM Interpretation: [...] AGRATIO 2.0 1.1-1.8 ALP 136 38-126 U/L H-MALBCREA Reviewed date:08/01/2024 05:08:21 PM Interpretation: Performing Lab: Notes/Report: Units: mg/g creat Normal: 0 - 29 Moderately Increased: 30 - 300 Severely Increased: >300 UCREAT 90 Not Estab. mg/dL Random urine reference range not established. 24 hour urine samples recommended. MICROALB 15.500 0-16.7 mg/L MALBCREAT 17.2 M-Complete Blood Count Auto Diff Reviewed date:08/01/2024 [...] Duration) Notes Start Date End Date Status oxyCODONE-Acetaminophen 5-325 MG 1 tablet as needed Orally every 6 hrs; Duration: 30 days 03/10/2025 Active Atorvastatin Calcium 40 MG 1 tab(s) oral ly once a day Active hydrOXYzine Pamoate 25 MG 1 capsule at b edtime orally Once a day; Duration: 14 days Active Aspirin 81 MG 1 tab(s) orally once a day Active Clopidogrel Bisulfate 75 MG 1 tab(s) ora lly once a day Active Levothyroxine Sodium 112 MCG 1 tab(s) or ally once a day; Duration: 90 days Active Ozempic (2 MG/DOSE) 8 MG/3ML 2 mg Subcut aneous once a week Active Spironolactone 25 MG 1 tablet Orally Onc e a day Active Docusate Sodium 100 MG 1 capsule Orally twice a day Active Losartan Potassium-HCTZ 100-25 MG 1 tab(s) orally once a day Active Azelastine HCl 137 MCG/SPRAY 2 spray(s) intranasally 2 times a day as needed; Duration: 30 days prn Active Bisoprolol Fumarate 5 MG 1 tab(s) orally once a day Active Cyclobenzaprine HCl 5 MG 1 tablet as nee ded Orally 3 times a day Active Immunizations Vaccine Route Administration Date Status Comme nts Adacel (Tdap) IM Intramuscular 07/06/2015 Administered Problems Problem Type SNOMED Code ICD Code Onset Dates Problem Status W/U Status Risk Notes Problem Peripheral circulatory disorder associated with diabetes mellitus (768021117) Type 2 diabetes mellitus with other circulatory complications (E11.59) Active confirmed Problem Polyneuropathy (48353050) Polyneuropathy in diseases classified elsewhere (G63) Active confirmed Problem Atherosclerotic heart disease of [place] coronary artery without angina pectoris (345931614932414) Atherosclerotic heart disease of [place] coronary artery without angina pectoris (I25.10) Active confirmed Problem Cervical radiculopathy (22400237) Cervical neuralgia (M54.12) Active confirmed Problem Vitamin D deficiency (19449586) Vitamin D deficiency (E55.9) Active confirmed Problem Arthritis (9963482) Arthritis (M19.90) Active confirmed Problem Essential hypertension (45572904) Essential hypertension (I10) Active confirmed Problem Hyperlipidemia (37371458) Hyperlipemia, idiopathic familial (E78.5) Active confirmed Problem Vitamin B12 deficiency (non anemic) (29016129) B12 deficiency (E53.8) Active confirmed Problem Personal history of primary malignant neoplasm of breast (758051143) History of breast cancer (Z85.3) Active confirmed Problem Hypothyroidism (20479418) Unspecified hypothyroidism (E03.9) Active confirmed Problem Postmenopausal bleeding (88203546) Post-menopausal bleeding (N95.0) Active confirmed Problem Diabetic peripheral neuropathy associated with type 2 diabetes mellitus (6442994356948) Type 2 diabetes mellitus with diabetic neuropathy, without long-term current use of insulin (E11.40) Active confirmed Problem Stasis dermatitis (disorder) (05406634) Stasis dermatitis of both legs (I87.2) Active confirmed Problem Anemia (134709755) Mild anemia (D64.9) Active confirmed Problem Chronic kidney disease stage 3B (disorder) (376287748) Chronic kidney disease, stage 3b (N18.32) Active confirmed Vital Signs Heart Rate 83 /min 03/07/2025 Temperature 98.3 degrees Fahrenheit 03/07/2025 Blood pressure diastolic 73 mm Hg 03/07/2025 Height 65 in 03/07/2025 Blood pressure systolic 149 mm Hg 03/07/2025 Weight 178.8 lbs 03/07/2025 BMI 29.75 kg/m2 03/07/2025 Encounters Encounter Location Date Provider Diagnosis [facility] [address] [place], [place] [address] 09/03/2024 Provider Migration [facility] [address] [facility] [address] [place], [place] [address] 05/04/2024 Krishan Caldwell Hyperlipemia, idiopathic familial E78.5 ; Acquired hypothyroidism E03.9 ; Stage 3a chronic kidney disease (CKD) N18.31 ; History of breast cancer Z85.3 and Rhinitis, unspecified type J31.0 [facility] [address] [place] [address] 08/01/2024 Krishan Caldwell Type 2 diabetes mellitus with diabetic neuropathy, without long-term current use of insulin E11.40 ; Atherosclerotic heart disease of [place] coronary artery without angina pectoris I25.10 ; Chronic kidney disease, stage 3b N18.32 ; High risk medication use Z79.899 ; Acquired hypothyroidism E03.9 ; Adenocarcinoma of right breast C50.911 ; Arthritis M19.90 ; Hypertension, essential I10 and Healthcare maintenance Z00.00 [facility] [address] [place] [address] 08/10/2024 Krishan Caldwell Post-menopausal bleeding N95.0 [facility] [address] [place] [address] 10/31/2024 Krishan Caldwell Impacted cerumen of right ear H61.21 [facility] [address] [place] [address] 11/14/2024 Krishan Caldwell Type 2 diabetes mellitus with diabetic neuropathy, without long-term current use of insulin E11.40 ; Chronic kidney disease, stage 3b N18.32 ; History of breast cancer Z85.3 and Vertigo R42 [facility] [address] [place] [place] [address] 02/15/2025 Krishan Caldwell Hypertension, essent ial I10 ; Acquired hypothyroidism E03.9 ; Type 2 diabetes mellitus with other circulatory complications E11.59 ; Chronic kidney disease, stage 3b N18.32 and Cervical neuralgia M54.[address] [facility] [address] [place] [address] 03/07/2025 Christa Mcleod S/P cervical spinal fusion Z98.1 ; Hospital discharge follow-up Z09 ; Essential hypertension I10 ; Mild anemia D64.9 ; Vitamin D deficiency E55.9 ; Unspecified hypothyroidism E03.9 ; Type 2 diabetes mellitus with other circulatory complications E11.59 and Chronic kidney disease, stage 3b N18.32 [facility] [address] [place] [address] 05/10/2024 Krishan Besson [facility] [address] [place] [address] 08/01/2024 Krishan Besson [facility] [address] [place] [address] 08/11/2024 Krishan Besson [facility] [address] [place] [address] 11/14/2024 Krishan Besson [facility] [address] [place] [address] 12/16/2024 Krishan Besson [facility] [address] [place] [address] 12/19/2024 Krishan Besson [facility] [address] [place] [address] 01/02/2025 Krishan Besson [facility] [address] [place] [address] 01/03/2025 Krishan Besson [facility] [address] [place] [address] 01/26/2025 Krishan Besson [facility] [address] [place] [address] 02/22/2025 Krishan Besson Vertigo R42 [facility] [address] [address] 03/10/2025 Krishan Besson Assessments Encounter Date Diagnosis (ICD Code) Assessment Notes Treatment Notes Treatment Clinical Notes Section Notes 08/01/2024 Atherosclerotic heart disease of [place] coronary artery without angina pectoris (ICD-10 - [...] - E03.9) Reviewed TSH and T4 levels 03/07/2025 Hospital discharge follow-up (ICD-10 - Z09) 03/07/2025 S/P cervical spinal fusion (ICD-10 - Z98.1) Hospital documentation reviewed PT/OT as indicated Has surgical FU arranged Condition is stable at this time. Recent labs with mild anemia and very mildly low vitamin D - will add supplements CKD is stable Labs again in 2 weeks with A1C and TSH 02/22/2025 Vertigo (ICD-10 - R42) 10/31/2024 Impacted cerumen of right ear (ICD-10 - H61.21) Follow-up with ENT for cerumen impaction removal 02/15/2025 Hypertension, essential (ICD-10 - I10) Blood pressure under good control. No changes in plan 02/15/2025 Acquired hypothyroidism (ICD-10 - E03.9) Reviewed thyroid labs once again with patient. Quite frankly it was frustrating that patient had to go to an unnecessary endocrinology appointment but no changes in this plan at this point 11/14/2024 Type 2 diabetes mellitus with diabetic neuropathy, without long-term current use of insulin (ICD-10 - E11.40) A1c under good control at last visit. UAC reviewed. No changes in plan, has optometry follow-up on December 01 for diabetic eye exam. 11/14/2024 Chronic kidney disease, stage 3b (ICD-10 - N18.32) Stable. Good urine output, UAC and labs reviewed 08/10/2024 Post-menopausal bleeding (ICD-10 - N95.0) Ongoing for last 2 weeks. No associated orthostatic hypotension, dizziness. Does have history of breast cancer and was on tamoxifen from 4703-2612. Will order TVUS to evaluate for causes of post-menopausal bleeding. 11/14/2024 History of breast cancer (ICD-10 - Z85.3) Follows with surgeon. No evidence of recurrence. 02/15/2025 Type 2 diabetes mellitus with other circulatory complications (ICD-10 - E11.59) A1c has been well-controlled. No change in plans 03/07/2025 Essential hypertension (ICD-10 - I10) 05/04/2024 Stage 3a chronic kidney disease (CKD) (ICD-10 - N18.31) 08/01/2024 Chronic kidney disease, stage 3b (ICD-10 - N18.32) 08/01/2024 High risk medication use (ICD-10 - Z79.899) Has a history of unintentional medicine diversion with gabapentin in the past. Will check drug screen given her 's use of hydrocodone 05/04/2024 History of breast cancer (ICD-10 - Z85.3) Will prescribe diazepam for her to use on arrival to MRI scanner for situational anxiety 03/07/2025 Mild anemia (ICD-10 - D64.9) 02/15/2025 Chronic kidney disease, stage 3b (ICD-10 - N18.32) Recent creatinines have been stable. No changes. Patient's volume status appears good. I will follow-up with patient in 2 months, hopefully after helpful neurosurgery 11/14/2024 Vertigo (ICD-10 - R42) Will refill meclizine. Hopefully cerumen impaction will of help symptomatology. 02/15/2025 Cervical neuralgia (ICD-10 - M54.12) Patient scheduled for neurosurgery in first week of March. Will follow-up afterwards. 03/07/2025 Vitamin D deficiency (ICD-10 - E55.9) 05/04/2024 Rhinitis, unspecified type (ICD-10 - J31.0) [...] Follows with surgery and oncology. No changes 03/07/2025 Unspecified hypothyroidism (ICD-10 - E03.9) 03/07/2025 Type 2 diabetes mellitus with other circulatory complications (ICD-10 - E11.59) 08/01/2024 Arthritis (ICD-10 - M19.90) On Tylenol. Seems to have good symptom control 08/01/2024 Hypertension, essential (ICD-10 - I10) Good blood pressure control on current medications. No changes in plan 03/07/2025 Chronic kidney disease, stage 3b (ICD-10 - N18.32) 08/01/2024 Healthcare maintenance (ICD-10 - Z00.00) Up-to-date [...] H-LIPID PANEL 11/06/2010 H-LIPID PANEL 12/03/2009 C-CBC 06/18/2009 C-CBC 03/15/2012 C-CBC 04/08/2010 C-CBC 02/09/2017 C-CMP 02/09/2017 C-CMP 04/08/2010 C-CMP 03/15/2012 C-CMP 06/18/2009 C-LIPID PANEL 04/08/2010 C-LIPID PANEL 06/18/2009 C-LIPID PANEL 03/15/2012 C-LIPID PANEL 02/09/2017 C-TSH 02/09/2017 C-TSH 06/18/2009 C-TSH 04/08/2010 C-URINE CULTURE 11/12/2009 C-MISC CULTURE 01/26/2012 Uric Acid, Serum 08/05/2012 M-Peripheral Smear Review 12/05/2020 M-Vitamin B12 12/05/2020 M-Iron and TIBC 12/05/2020 M-Microalb/Creat Ratio, Randm Ur 025 Future Test Test Name Order Date C-HGBA1C 12/29/2008 H-TSH 11/07/2013 Next Appt Details Provider Name:Krishan Caldwell, 04/12/2025 09:30:00 AM, [address], [place], [address], Insurance Providers Payer Name Payer Address Payer Phone Subscriber Number Group Number Insured Name Patient Relationship to Insured Coverage Start Date Coverage End Date [employer] [place] [address] [place] [address] [id number] Lavinia Iyer Self - patient is the insured Medications Administered Medication Instructions Date of Administration Dosage Notes Felipe 05/30/2014 1 mL Medical (General) History Medical [...] repeat 02/22 with 2 tubular adenomas vertigo Cervical DDD s/p fusion 2024 Vitamin D Deficiency Chronic kidney disease CAD with stenting 2023 Surgical History Surgery Date(Month/Year) lumpectomy-rt breast 07/2016 Tubal ligation 1980s 5 stents 06/2023 colonoscopy 01/2024 [facility] 05/10/24, 06/14/24 Fusion of C spine 03/2025 Hospitalization History Reason Date(Month/Year) C spine fusion 03/2025 [facility] 06/2023
--- OUTSIDE RECORDS SUMMARY | 2025-03-15 21:44 | XMS_ITS | Referral Summary ---
Author Organization [facility] ([place], [place], [place], [place]) Address [address] [place] [address] Care Team Providers Care Animal Daycare Provider Name Role Phone Krishan Caldwell MD Primary Care Provider + [phone] Encounters Date Type Department Care Team Description 03/02/2025 5:59 AM EDT - 03/05/2025 12:45 PM EDT Hospital Encounter [facility] Orthopedic & Neurosurgery Unit [address] [place] [address] Julio César Carvajal MD Discharge Disposition: Hospice/Medical Facility 03/02/2025 7:28 AM EDT Anesthesia Event [facility] Operating Room [address] [place] [address] Shauna Valladares MD 03/02/2025 Travel 03/02/2025 7:30 AM EDT - 03/02/2025 12:29 PM EDT Surgery [facility] Operating Room 1 [place] [address] Julio César Carvajal MD C3-C5 POSTERIOR CERVICAL FUSION WITH NEUROMONITORING 02/24/2025 Travel 02/24/2025 1:58 PM EDT - 02/24/2025 11:59 PM EDT Hospital Encounter [facility] Preadmission Testing 1 [place] [address] Preop testing (Primary Dx); Cervical myelopathy (HCC); History of breast cancer; Hypertension; Hypothyroidism; History of AL (myocardial infarction); Coronary atherosclerosis of [place] coronary artery; Diabetes mellitus, type II (HCC); CKD (chronic kidney disease), stage III (HCC); Preoperative evaluation to rule out surgical contraindication; Pre-op testing Discharge Disposition: Home or Self Care from Last 3 Months Allergies Active Allergy Reactions Criticality Noted Date Comments Niacin Rash Low 02/24/2025 Medications aspirin 81 MG EC tablet Take 1 tablet (81 mg total) by mouth daily. Active atorvastatin (LIPITOR) 40 MG tablet Take 1 tablet (40 mg total) by mouth nightly. Active bisoprolol (ZEBETA) 5 MG tablet Take 1 tablet (5 mg total) by mouth daily. Active Ozempic 2 mg/dose (8 mg/3 mL) pnij Inject 2 mg into the shoulder, thigh, or buttocks every 7 days Thursday02/22/2025. 02/25/20 25 Active levothyroxine (SYNTHROID) 112 MCG tablet Take 1 tablet (112 mcg total) by mouth Daily (0600). Active Plavix 75 mg tablet Take 1 tablet (75 mg total) by mouth daily. Active hydrOXYzine pamoate (VISTARIL) 25 MG capsule Take 1 capsule (25 mg total) by mouth nightly. Active azelastine (ASTELIN) 137 mcg (0.1 %) nasal spray Administer 1 spray into each nostril as needed. Active meclizine (ANTIVERT) 25 mg tablet Take 1 tablet (25 mg total) by mouth as needed. 11/15/19 25 Active ondansetron (ZOFRAN) 4 MG tablet Take 1 tablet (4 mg total) by mouth every 8 (eight) hours as needed. 02/23/20 25 Active spironolactone (ALDACTONE) 25 MG tablet Take 1 tablet (25 mg total) by mouth daily. 02/02/20 25 Active losartan-hydro CHLOROthiazide (HYZAAR) 100-25 mg per tablet Take 1 tablet by mouth daily. Active losartan-hydro chlorothiazide (HYZAAR) 50-12.5 mg per tablet Take 1 tablet by mouth daily. 025 Discontinued acetaminophen (Tylenol Extra Strength) 500 MG tablet Take 2 tablets (1,000 mg total) by mouth daily. 025 Discontinued(St op Taking at Discharge) cyclobenzaprin e (FLEXERIL) 5 MG tablet Take 1 tablet (5 mg total) by mouth 3 (three) times daily as needed for muscle spasms for up to 10 days. 30 tablet 03/04/20 25 docusate sodium (COLACE) 100 MG capsule Take 1 capsule (100 mg total) by mouth 2 (two) times daily for 10 days. 10 capsule 03/04/20 25 oxyCODONE-acet aminophen (PERCOCET) 5-325 mg per tablet Take 1 tablet by mouth every 6 (six) hours as needed for pain for up to 10 days Look-alike/ Sound-alike medication. Max Daily Amount: 4 tablets 20 tablet 03/04/20 Active Problems Problem Noted Date Diagnosed Date Hyperlipidemia 03/02/2025 Stented coronary artery 03/02/2025 Cervical myelopathy 02/24/2025 History of breast cancer 02/24/2025 Hypertension 02/24/2025 Hypothyroidism 02/24/2025 History of AL (myocardial infarction) 02/24/2025 Overview (02/24/2025): S/p PCI in 06/2023 Coronary atherosclerosis of [place] coronary justen ry 02/24/2025 Diabetes mellitus, type II 02/24/2025 CKD (chronic kidney disease), stage III 02/25/20 Resolved Problems Problem Noted Date Diagnosed Date Resolved Date Preoperative evaluation to r ule out surgical contraindication 02/24/2025 03/02/2025 Social History Tobacco Use Types Packs/Day Years [...] harm? Never 03/02/2025 How often does anyone, inclu ding family and friends, scream or curse at [...] Do you speak a language other than [place] [facility]? No 03/02/2025 Do you want help [...] (166 lb) 03/02/2025 6:49 AM EDT Height 170.2 cm (5' 7 ) 02/24/2025 2:34 PM EDT Body Mass Index 26 02/24/2025 2:34 PM EDT Plan of Treatment Not on file Medical Devices Implanted Type Area Car Park Attendant Device Identifier Shelf Expiration Date Model / Serial / Lot Bone Vivigen Formable Cell 5cc -1600-002 - [id number] Implanted:Qt y: 1 on 03/02/2025 by Julio César Carvajal MD at [facility] IMPLANTS N/A: Posterior Cervical LIFENET:LIFENET TRANSPLANT SRV [id number] 02/15/2026 -1600- 002 / [id number] / Scr 4.0 Ply 3.5x14 1019-35-114 - [id number] Implanted:Qt y: 6 on 03/02/2025 by Julio César Carvajal MD at [facility] IMPLANTS N/A: Posterior Cervical J &J:DEPUY:DEPUY SPINE 0-35- 114 / [id number] / St Scr 000 - Implanted:Qt y: 6 on 03/02/2025 by Julio César Carvajal MD at [facility] IMPLANTS N/A: Posterior Cervical J &J:DEPUY:DEPUY SPINE 0 / / Jelani Ti Jelani 4.0x040 64-040 - [id number] Implanted:Qt y: 2 on 03/02/2025 by Julio César Carvajal MD at [facility] IMPLANTS N/A: Posterior Cervical J &J:DEPUY:DEPUY SPINE 0 040 / 040 / Procedures Procedure Name Priority Date/Time Associated Diagnosis [...] GLUCOSE POC Routine 03/03/2025 5:39 AM EDT BASIC METABOLIC PANEL Routine 03/03/2025 2:36 AM EDT CBC HEMOGRAM (SJ-BKR) Routine 03/03/2025 2:36 AM EDT NOVA GLUCOSE POC Routine 03/02/2025 8:28 PM EDT BASIC METABOLIC PANEL Routine 03/02/2025 5:41 PM EDT NOVA GLUCOSE POC Routine 03/02/2025 10:3 4 AM EDT FL C-ARM < 1 HOUR Routine 03/02/2025 9:5 6 AM EDT HC ARTERIAL CATH SAMP/MNTR Routine 03/02/2025 7:55 AM EDT [facility] AN PIV LDA Routine 03/02/2025 7 :45 AM EDT HC MIDLINE INSERTION/PIV Routine 03/02/2025 7:45 AM EDT ANESTHESIA INTUBATION Routine 03/02/2025 7:36 AM EDT MD ARTHRD PST/PSTLAT TQ 1NTRSPC CRV BELW C2 SEGMENT 03/02/2025 7:28 AM EDT Disease of spinal cord (HCC) NOVA GLUCOSE POC Routine 03/02/2025 7:02 AM EDT TYPE AND SCREEN ([place] BKR) Routine 03/02/2025 6:59 AM EDT HEMOGLOBIN A1C STAT 02/24/2025 3:04 PM EDT Preop testing ABO/RH CONFIRMATION/RETYPE ([place] BKR) STAT 02/24/2025 3:03 PM EDT Preop testing URINALYSIS WITHOUT MICROSCOPIC Routine 02/24/2025 3:03 PM EDT Preop testing BASIC METABOLIC PANEL STAT 02/24/2025 3:03 PM EDT Preop testing CBC HEMOGRAM (SJ-BKR) STAT 02/24/2025 3:03 PM EDT Preop testing from Last 3 Months Results * (ABNORMAL) Glucose, Nova Meter (03/05/2025 10:41 AM EDT) Only the most recent of13 resultswithin the time period is included. POC-GLUCOSE 119(H) 70 - 110 mg/dL 03/05/2025 10:43 AM EDT [facility] Comment: In the event of poor peripheral blood flow, venous or arterial blood should be used due to the potential of erroneous results. Notified Nurse RBV Assembly Member [id number] 03/05/2025 10:43 AM EDT [facility] Blood WHOLE BLOOD / Unknown 03/05/2025 10:41 AM EDT 03/05/2025 10:43 AM EDT Narrative [facility] - 03/05/2025 10:43 AM EDT Assembly Member ID is - [id number] Julio César Carvajal MD POINT OF CARE TEST ORDERABLES Final Result [facility] [address] [phone] * (ABNORMAL) Basic Metabolic Panel (03/05/2025 9:37 AM EDT) Only the most recent of4 resultswithin the time period is included. Pathologist [facility] Sodium 139 136 - 145 meq/L 03/05/2025 10:33 AM EDT [facility] Potassium 4.4 3.4 - 5.1 meq/L 03/05/2025 10:33 AM EDT [facility] CO2 22 22 - 29 meq/L 03/05/2025 10:33 AM EDT [facility] Chloride 108 98 - 112 meq/L 03/05/2025 10:33 AM EDT [facility] Glucose 139(H) 82 - 115 mg/dL 03/05/2025 10:33 AM EDT [facility] BUN 17.9 9.8 - 20.1 mg/dL 03/05/2025 10:33 AM EDT [facility] Creatinine 1.20(H) 0.57 - 1.11 mg/dL 03/05/2025 10:33 AM EDT [facility] BUN/Creatinine 15 8 - 20 03/05/2025 10:33 AM EDT [facility] Calcium 8.8 8.4 - 10.2 mg/dL 03/05/2025 10:33 AM EDT [facility] Anion Gap 13(H) 4 - 12 03/05/2025 10:33 AM EDT [facility] eGFR (mL/min/1.73m2) 47(L) >=60 mL/min/1.7 3m2 03/05/2025 10:33 AM EDT [facility] Comment:ESTIMATED GFR IS NOT ACCURATE CREATININE CLEARANCE IN PREDICTING GLOMERULAR FILTRATION RATE. ESTIMATED GFR IS NOT APPLICABLE FOR DIALYSIS PATIENTS. Osmolality Calc 281.7 mOsm/kg 10:33 AM EDT [facility] Blood Venipuncture / Unknown 03/05/2025 9:37 AM EDT 03/05/2025 10:10 AM EDT De Catalan PA-C LAB BLOOD ORDERABLES Final Res ult [facility] [address] [phone] * XR spine cervical 2 or 3 [...] Neelima Mancia PA-C. Julio César Carvajal MD IM DIAGNOSTIC IMAGING ORDERA BLES Final Result * (ABNORMAL) CBC (Hemogram only) (03/03/2025 2:36 AM EDT) Only the most recent of2 resultswithin the time period is included. WBC 9.9 4.0 - 10.0 K/ L 03/03/2025 2:57 AM EDT [facility] RBC 3.74(L) 3.93 - 5.22 M/ L 03/03/2025 2:57 AM EDT [facility] Hemoglobin 11.4 11.2 - 15.7 GM/DL 03/03/2025 2:57 AM EDT [facility] Hematocrit 34.8 34.1 - 44.9 % 03/03/2025 2:57 AM EDT [facility] MCV 93 79 - 95 fL 03/03/2025 2:57 AM EDT [facility] MCH 30.5 25.6 - 32.2 pg 03/03/2025 2:57 AM EDT [facility] MCHC 32.8 32.2 - 35.5 GM/DL 03/03/2025 2:57 AM EDT [facility] RDW 14.0 11.7 - 14.4 % 03/03/2025 2:57 AM EDT [facility] Platelets 172 140 - 375 K/CU MM 03/03/2025 2:57 AM EDT [facility] MPV 12.0 9.4 - 12.3 fL 03/03/2025 2:57 AM EDT [facility] Blood Venipuncture / Unknown 03/03/2025 2:36 AM EDT 03/03/2025 2:53 AM EDT us Julio César Carvajal MD LAB BLOOD ORDERABLES Final Re sult [facility] [address] [phone] * [place] C-ARM < 1 HOUR (03/02/2025 [...] IMG FLUOROSCOPY ORDERABLES Fi nal Result * HC ARTERIAL CATH SAMP/MNTR (03/02/2025 7:55 [...] patient tolerated procedure well with no complications Shauna Valladares MD ANESTHESIA ORDERABLES Vidhi l [...] prep: alcohol Technique: anatomical landmarks Attempts: 2 Result [facility] Shauna Valladares MD ANESTHESIA ORDERABLES Vidhi l Result * AN SINGLE LUMEN INTUBATION (03/02/2025 7:36 AM EDT) Narrative Marbin Hidalgo CRNA - 03/02/2025 7:36 AM EDT Marbin [...] Bilateral BS and chest rise, ETCO2 confirmed us Shauna Valladares MD ANESTHESIA ORDERABLES Vidhi l Result * Type and Screen (03/02/2025 6:59 AM EDT) ABO/Rh O Negative 03/02/2025 7:04 AM EDT [facility] [place] Antibody Screen Negative 03/02/2025 7:04 AM EDT [facility] [place] HISTCHK HIST CHECK PERFORMED 03/02/2025 7:04 AM EDT [facility] [place] Blood Venipuncture / Unknown 03/02/2025 6:59 AM EDT 03/02/2025 7:04 AM EDT us Shauna Valladares MD [facility] BLOOD BANK TEST ORDERA BLES Final Result [facility] ([place]) [address] [facility] [address] [place], [place] [address] [phone] * Hemoglobin A1c (02/24/2025 3:04 PM EDT) Hemoglobin A1C 5.6 4.0 - 5.6 % 02/24/2025 3:43 PM EDT [facility] Comment: Hemoglobin A1C levels are related to mean glucose during the preceding 2-3 months. Less than 7% demonstrates glycemic control in diabetic patients. Hemoglobin AlC % Suggested Diagnosis > or = 6.5 Diabetic 5.7 - 6.4 Prediabetic <5.7 Non-diabetic eAVG Glucose 114.02 70 - 126 mg/dL 02/24/2025 3:43 PM EDT [facility] Blood Venipuncture / Unknown 02/24/2025 3:04 PM EDT 02/24/2025 3:25 PM EDT us De Fox MD LAB BLOOD ORDERABLES Final Res ult [facility] [address] [phone] * ABO/RH CONFIRMATION/RETYPE (02/24/2025 3:03 PM EDT) RETYPE O Negative 02/24/2025 3:23 PM EDT [facility] [place] Blood Venipuncture / Unknown 02/24/2025 3:03 PM EDT 02/24/2025 3:23 PM EDT us De Fox MD [facility] BLOOD BANK TEST ORDERABLES Final Result Performing Organization Address City/[facility]/ZIP Co de Phone Number [facility] ([place]) [address] [phone] * (ABNORMAL) Urinalysis without Microscopic (02/24/2025 3:03 PM EDT) Color, UA Light Yellow 02/24/2025 3:39 PM EDT [facility] Clarity, UA Clear Clear 02/24/2025 3:39 PM EDT [facility] Specific [place], UA 1.014 1.005 - 1.030 02/24/2025 3:39 PM EDT [facility] pH, UA 5.0(L) 6.0 - 8.0 02/24/2025 3:39 PM EDT [facility] Leukocytes, UA Negative Negative 02/24/2025 3:39 PM EDT [facility] Nitrite, UA Negative Negative 02/24/2025 3:39 PM EDT [facility] Protein, UA Negative Negative 02/24/2025 3:39 PM EDT [facility] Glucose, UA Normal Normal 02/24/2025 3:39 PM EDT [facility] Ketones, UA Negative Negative 02/24/2025 3:39 PM EDT [facility] Urobilinogen, UA Normal Normal 02/24/2025 3:39 PM EDT [facility] Bilirubin, UA Negative Negative 02/24/2025 3:39 PM EDT [facility] Blood, UA Negative Negative 02/24/2025 3:39 PM EDT [facility] Specimen Source Urine, Clean Catch 02/24/2025 3:39 PM EDT [facility] Urine URINE SPECIMEN COLLECTION, CLEAN CATCH / Unknown 02/24/2025 3:03 PM EDT 02/24/2025 3:26 PM EDT us Julio César Carvajal MD URINE ORDERABLES Final Result [facility] [address] [place] [address] from Last 3 Months Insurance [employer] MEDICARE PART A ONLY Advance Directives For more information, please contact: [phone] Documents on File Type Date Recorded 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
--- OUTSIDE RECORDS SUMMARY | 2025-03-15 21:45 | XMS_ITS | Clinical Summary ---
Author Organization [facility] ([place], [place], [place], [place]) Address [address] [place] [address] Care Team Providers Care Behavioral Health Worker Name Role Phone Krishan Caldwell MD Primary Care Provider + [phone] Allergies Active Allergy Reactions Criticality Noted Date [...] mouth every 8 (eight) hours as needed. 09/24/20 25 Active spironolactone (ALDACTONE) 25 MG tablet Take 1 tablet (25 mg total) by mouth daily. 02/02/20 Active losartan-hydro CHLOROthiazide (HYZAAR) 100-25 mg per tablet Take 1 tablet by mouth daily. Active losartan-hydro chlorothiazide (HYZAAR) 50-12.5 mg per tablet Take 1 tablet by mouth daily. Discontinued acetaminophen (Tylenol Extra Strength) 500 MG tablet Take 2 tablets (1,000 mg total) by mouth daily. Discontinued(St op Taking at Discharge) cyclobenzaprin e (FLEXERIL) 5 MG tablet Take 1 tablet (5 mg total) by mouth 3 (three) times daily as needed for muscle spasms for up to 10 days. 30 tablet 03/04/20 docusate sodium (COLACE) 100 MG capsule Take 1 capsule (100 mg total) by mouth 2 (two) times daily for 10 days. 10 capsule 03/04/20 oxyCODONE-acet aminophen (PERCOCET) 5-325 mg per tablet Take 1 tablet by mouth every 6 (six) hours as needed for pain for up to 10 days Look-alike/ Sound-alike medication. Max Daily Amount: 4 tablets 20 tablet 03/04/20 Active Problems Problem Noted Date Diagnosed Date Hyperlipidemia 03/02/2025 Stented coronary artery 03/02/2025 Cervical myelopathy 02/24/2025 History of breast cancer 02/24/2025 Hypertension 02/24/2025 Hypothyroidism 02/24/2025 History of SD (myocardial infarction) 02/24/2025 Overview (02/24/2025): S/p PCI in 06/2023 Coronary atherosclerosis of [place] coronary justen ry 02/24/2025 Diabetes mellitus, type II 02/24/2025 CKD (chronic kidney disease), stage III 02/25/20 Resolved Problems Problem Noted Date Diagnosed Date Resolved Date Preoperative evaluation to r ule out surgical contraindication 02/24/2025 03/02/2025 Encounters Date Type Department Care Team Description 03/02/2025 7:30 AM EDT - 03/02/2025 12:29 PM EDT Surgery [facility] Operating Room [address] [place] [address] Julio César Carvajal MD C3-C5 POSTERIOR CERVICAL FUSION WITH NEUROMONITORING 03/02/2025 7:28 AM EDT Anesthesia Event [facility] Operating Room [address] [place] [address] Shauna Valladares MD 03/02/2025 5:59 AM EDT - 03/05/2025 12:45 PM EDT Hospital Encounter [facility] Orthopedic & Neurosurgery Unit [address] [place] [address] Julio César Carvajal MD Discharge Disposition: Hospice/Medical Facility 03/02/2025 Travel 02/24/2025 1:58 PM EDT - 02/24/2025 11:59 PM EDT Hospital Encounter [facility] Preadmission Testing [address] [place] [address] Preop testing (Primary Dx); Cervical myelopathy (HCC); History of breast cancer; Hypertension; Hypothyroidism; History of SD (myocardial infarction); Coronary atherosclerosis of [place] coronary artery; Diabetes mellitus, type II (HCC); CKD (chronic kidney disease), stage III (HCC); Preoperative evaluation to rule out surgical contraindication; Pre-op testing Discharge Disposition: Home or Self Care 02/24/2025 Travel from Last 3 Months Social History Tobacco Use Types Packs/Day Years Used Date Smoking Tobacco: Never Smokeless Tobacco: Never Tobacco Cessation:Counseling Given: Not Answered Alcohol Use Standard Drinks/Week Comments Never 0 (1 standard drink = 0.6 oz pur e alcohol) Utilities Answer Date Recorded In the past 12 months, has t he electric, gas, oil, or water [employer] threatened to shut off services in your [...] Do you speak a language other than Kyrgyz at [facility]? No 03/02/2025 Do you want [...] 02/24/2025 2:34 PM EDT Plan of Treatment Health Maintenance Due Date Last Done Comments CT Colonography 1949 Colonoscopy 1949 Colorectal Cancer Screening 1949 DXA SCAN 1949 Diabetic Kidney Health Evalu ation (KED) 1949 FOBT/FIT 1949 Fit-DNA (Cologuard) 1949 Sigmoidoscopy 1949 Diabetic Eye Exam 10/22/1959 Depression Screening (12+) 1961 Hepatitis C Screening 10/22/1967 Pneumococcal 50+ years (1 of 2 - PCV) 1968 Shingles Vaccine (Zoster) (1 of 2) 10/22/1999 Falls Risk Screening 06/01/2024 Respiratory Syncytial Virus (RSV) Adult or (1 - 1-dose 75+ series) 2024 COVID-19 VACCINE ( season) 2025 07/26/2021, 12/04/2020, 11/13/2020 Influenza Vaccine (#1) 2025 DTAP/TDAP/TD VACCINES (3 - T d or Tdap) 07/06/2025 07/06/2015, 08/05/1996 Hemoglobin A1C 08/24/2025 02/24/2025 Tobacco Cessation Counseling and Screening (12+) 03/02/2026 03/02/2025 Medical Devices Implanted Type Area Senior Oracle Pl Sql Developer Device Identifier Shelf Expiration Date Model / Serial / Lot Bone Vivigen Formable Cell 5cc -1600-002 - [id number] Implanted:Qt y: 1 on 03/02/2025 by Julio César Carvajal MD at [facility] IMPLANTS N/A: Posterior Cervical LIFENET:LIFENET TRANSPLANT SRV [id number] 02/15/2026 -1600- 002 / [id number] / Scr 4.0 Ply 3.5x14 1020-35-114 - [id number] Implanted:Qt y: 6 on 03/02/2025 by Julio César Carvajal MD at [facility] IMPLANTS N/A: Posterior Cervical J &J:DEPUY:DEPUY SPINE 1020-35- 114 / 1020-35- 114 / St Scr 1020-00-000 - [id number] Implanted:Qt y: 6 on 03/02/2025 by Julio César Carvajal MD at [facility] IMPLANTS N/A: Posterior Cervical J &J:DEPUY:DEPUY SPINE 1020-00- 000 / 1020-00- 000 / Jelani Ti Jelani 4.0x040 1020-64-040 - [id number] Implanted:Qt y: 2 on 03/02/2025 by Julio César Carvajal MD at [facility] IMPLANTS N/A: Posterior Cervical J &J:DEPUY:DEPUY SPINE 1020-64- 040 / [id number] / Procedures Procedure Name Priority Date/Time [...] ANESTHESIA INTUBATION Routine 03/02/2025 7:36 AM EDT DE ARTHRD PST/PSTLAT TQ 1NTRSPC CRV BELW C2 [...] - 110 mg/dL 03/05/2025 10:43 AM EDT [facility] Comment: In the event of poor peripheral blood flow, venous or arterial blood should be used due to the potential of erroneous results. Notified Nurse RBV Assistant Chief Of Police [id number] 03/05/2025 10:43 AM EDT [facility] Blood WHOLE BLOOD / Unknown 03/05/2025 10:41 AM EDT 03/05/2025 10:43 AM EDT Narrative [facility] - 03/05/2025 10:43 AM EDT Assistant Chief Of Police ID is - [id number] us Julio César Carvajal MD POINT OF CARE TEST ORDERABLES Final Result [facility] [address] [phone] * (ABNORMAL) Basic Metabolic Panel (03/05/2025 9:37 AM EDT) Only the most recent of4 resultswithin the time period is included. Sodium 139 136 - 145 meq/L 03/05/2025 10:33 AM EDT [facility] Potassium 4.4 3.4 - 5.1 meq/L 03/05/2025 10:33 AM EDT [facility] CO2 22 22 - 29 meq/L 03/05/2025 10:33 AM EDT [facility] Chloride 108 98 - 112 meq/L 03/05/2025 10:33 AM EDT [facility] Glucose 139(H) 82 - 115 mg/dL 03/05/2025 10:33 AM EDT [facility] BUN 17.9 9.8 - 20.1 mg/dL 03/05/2025 10:33 AM EDT [facility] Creatinine 1.20(H) 0.57 - 1.11 mg/dL 03/05/2025 10:33 AM EDT [facility] BUN/Creatinine 15 8 - 20 03/05/2025 10:33 AM EDT [facility] Calcium 8.8 8.4 - 10.2 mg/dL 03/05/2025 10:33 AM EDT [facility] Anion Gap 13(H) 4 - 12 03/05/2025 10:33 AM EDT [facility] eGFR (mL/min/1.73m2) 47(L) >=60 mL/min/1.7 3m2 03/05/2025 10:33 AM EDT [facility] Comment:ESTIMATED GFR IS NOT ACCURATE CREATININE CLEARANCE IN PREDICTING GLOMERULAR FILTRATION RATE. ESTIMATED GFR IS NOT APPLICABLE FOR DIALYSIS PATIENTS. Osmolality Calc 281.7 mOsm/kg 10:33 AM EDT [facility] Blood Venipuncture / Unknown 03/05/2025 9:37 AM EDT 03/05/2025 10:10 AM EDT De Catalan PA-C LAB BLOOD ORDERABLES Final Res ult [facility] [address] [phone] * XR spine cervical 2 or 3 [...] 10.0 K/ L 03/03/2025 2:57 AM EDT [facility] RBC 3.74(L) 3.93 - 5.22 M/ L 03/03/2025 2:57 AM EDT [facility] Hemoglobin 11.4 11.2 - 15.7 GM/DL 03/03/2025 2:57 AM EDT [facility] Hematocrit 34.8 34.1 - 44.9 % 03/03/2025 2:57 AM EDT [facility] MCV 93 79 - 95 fL 03/03/2025 2:57 AM EDT [facility] MCH 30.5 25.6 - 32.2 pg 03/03/2025 2:57 AM EDT [facility] MCHC 32.8 32.2 - 35.5 GM/DL 03/03/2025 2:57 AM EDT [facility] RDW 14.0 11.7 - 14.4 % 03/03/2025 2:57 AM EDT [facility] Platelets 172 140 - 375 K/CU MM 03/03/2025 2:57 AM EDT [facility] MPV 12.0 9.4 - 12.3 fL 03/03/2025 2:57 AM EDT [facility] Blood Venipuncture / Unknown 03/03/2025 2:36 AM EDT 03/03/2025 2:53 AM EDT us Julio César Carvajal MD LAB BLOOD ORDERABLES Final Re sult [facility] [address] [phone] * [place] C-ARM < 1 HOUR (03/02/2025 [...] ARTERIAL CATH SAMP/MNTR (03/02/2025 7:55 AM EDT) Narrative Marbin Hidalgo CRNA - 03/02/2025 7:55 AM EDT Marbin [...] ABO/Rh O Negative 03/02/2025 7:04 AM EDT [facility] ([place]) Antibody Screen Negative 03/02/2025 7:04 AM EDT [facility] ([place]) HISTCHK HIST CHECK PERFORMED 03/02/2025 7:04 AM EDT [facility] [place] Blood Venipuncture / Unknown 03/02/2025 6:59 AM EDT 03/02/2025 7:04 AM EDT us Shauna Valladares MD [facility] BLOOD [facility] TEST ORDERA BLES Final Result [facility] ([place]) [address] [place] [address], [facility] [phone] * Hemoglobin A1c (02/24/2025 3:04 PM EDT) Hemoglobin A1C 5.6 4.0 - 5.6 % 02/24/2025 3:43 PM EDT [facility] Comment: Hemoglobin A1C levels are related to mean glucose during the preceding 2-3 months. Less than 7% demonstrates glycemic control in diabetic patients. Hemoglobin AlC % Suggested Diagnosis > or = 6.5 Diabetic 5.7 - 6.4 Prediabetic <5.7 Non-diabetic eAVG Glucose 114.02 70 - 126 mg/dL 02/24/2025 3:43 PM EDT [facility] Blood Venipuncture / Unknown 02/24/2025 3:04 PM EDT 02/24/2025 3:25 PM EDT us De Fox MD LAB BLOOD ORDERABLES Final Res ult [facility] [address] [place] [address], [facility] [phone] * ABO/RH CONFIRMATION/RETYPE (02/24/2025 3:03 PM EDT) RETYPE O Negative 02/24/2025 3:23 PM EDT [facility] ([place]) Blood Venipuncture / Unknown 02/24/2025 3:03 PM EDT 02/24/2025 3:23 PM EDT us De Fox MD [facility] BLOOD B[facility] TEST ORDERABLES Final Result [facility] - BLOOD [facility] ([place]) [address] [place] [address], [place] [phone] * (ABNORMAL) Urinalysis without Microscopic (02/24/2025 3:03 PM EDT) Color, UA Light Yellow 02/24/2025 3:39 PM EDT [facility] Clarity, UA Clear Clear 02/24/2025 3:39 PM EDT [facility] Specific Hope, UA 1.014 1.005 - 1.030 02/24/2025 3:39 PM EDT [facility] pH, UA 5.0(L) 6.0 - 8.0 02/24/2025 3:39 PM EDT [facility] Leukocytes, UA Negative Negative 02/24/2025 3:39 PM EDT [facility] Nitrite, UA Negative Negative 02/24/2025 3:39 PM EDT [facility] Protein, UA Negative Negative 02/24/2025 3:39 PM EDT [facility] Glucose, UA Normal Normal 02/24/2025 3:39 PM EDT [facility] Ketones, UA Negative Negative 02/24/2025 3:39 PM EDT [facility] Urobilinogen, UA Normal Normal 02/24/2025 3:39 PM EDT [facility] Bilirubin, UA Negative Negative 02/24/2025 3:39 PM EDT [facility] Blood, UA Negative Negative 02/24/2025 3:39 PM EDT [facility] Specimen Source Urine, Clean Catch 02/24/2025 3:39 PM EDT [facility] Urine URINE SPECIMEN COLLECTION, CLEAN CATCH / Unknown 02/24/2025 3:03 PM EDT 02/24/2025 3:26 PM EDT us Julio César Carvajal MD URINE ORDERABLES Final Result [facility] [address] [place] [address], [facility] [phone] from Last 3 Months Insurance [employer] MEDICARE PART A ONLY Advance Directives For more information, please contact: [phone] Documents on File Type Date Recorded 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
--- OUTSIDE RECORDS SUMMARY | 2025-03-15 21:46 | XMS_ITS | Clinical Summary ---
Author Organization [facility] Address [address] [place] [address] Care Team Providers Care Help Desk Support Specialist Name Role Phone Krishan Caldwell MD Primary Care Provider [phone] Allergies No known active allergies Social History [...] 1- dose 75+ series) 2024 INFLUENZA VACCINE 12/30/2024 COVID-19 Vaccine (2024-2 6 season) 2025 12/04/2020, 11/13/2020 MAMMOGRAM Discontinued 03/08/2024, 01/31, 07/13/2023, Additional history [...] Relevant to Health Maintenance Insurance Care Teams Help Desk Support Specialist Relationship Specialty Start Date End Date Krishan Caldwell MD [address] [facility] [address] [place] [address] PCP - General Adolescent Medicine 04/26/24
--- NOTE | 2025-03-15 21:59 | CT_ITS ---
PROCEDURE INFORMATION: Exam: CT Abdomen And Pelvis With Contrast Exam date and time: 03/15/2025 11:31 PM Age: 74 years old Clinical indication: Abdominal pain TECHNIQUE: Imaging protocol: Computed tomography of the abdomen and pelvis with contrast. Radiation optimization: All CT scans at this facility use at least one of these dose optimization techniques: automated exposure control; mA and/or kV adjustment per patient size (includes targeted exams where dose is matched to clinical indication); or iterative reconstruction. Contrast material: ISOVUE; Contrast volume: 75 ml; Contrast route: IV; COMPARISON: CT PELVIS WO CON 10/03/2024 11:55 AM FINDINGS: Liver: Fatty infiltration. No mass. Gallbladder and biliary ducts: Calculi without gallbladder wall thickening. Pancreas: Unremarkable. No ductal dilation. Spleen: Unremarkable. No splenomegaly. Adrenal glands: Unremarkable. No mass. Kidneys and ureters: Similar right renal atrophy. Unremarkable left kidney. Nonobstructive left renal calculi measuring up to 0.4 cm. Stomach and bowel: Nonobstructive fluid-filled small bowel loops. Scattered sigmoid colonic diverticula without peridiverticular fat stranding. Nonobstructive pattern. Appendix: No evidence of appendicitis. Intraperitoneal space: Unremarkable. No free air. No significant fluid collection. Vasculature: Atherosclerotic calcification of aortoiliac and celiac arteries without aneurysm. Renal arterial ostial atherosclerotic calcification with stenosis of right renal artery. Lymph nodes: Shotty lymph nodes likely reactive. Urinary bladder: Unremarkable as visualized. Reproductive: Unremarkable as visualized. 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 No acute findings identified. Soft tissues: Unremarkable. IMPRESSION: 1. Nonobstructive fluid-filled small bowel loops with shotty lymph nodes. Correlate for low-grade enteritis and mesenteric lymphadenitis symptoms. 2. Sigmoid colonic diverticulosis. 3. Cholelithiasis. 4. Hepatomegaly with fatty infiltration. 5. High-grade right renal arterial ostial stenosis with similar mild right renal atrophy.
--- NOTE | 2025-03-15 22:17 | ECG_ITS ---
APPROVED REPORT Exam: Resting ECG HR:83 bpm ECG Measurements Heart Rate 83 AXES WA 169 P 67 QRSd 102 QRS 50 QT 390 T 53 QTc 430 Conclusion Normal sinus rhythm Normal axis Normal intervals No STEMI Electronically signed by : Alireza Wilson, 03/16/2025 03:08:55
--- NOTE | 2025-03-15 22:20 | HMH.EDGENADL ---
Discharge Plan Disposition Patient Disposition: Admitted Condition: Good Clinical Impressions Clinical Impression: Enteritis, Intractable vomiting with nausea Urinary tract infection Qualifiers: Urinary tract infection type: acute cystitis Hematuria presence: without hematuria Qualified Code(s): N30.00 - Acute cystitis without hematuria Discharge ED Provider: Alireza Wilson General Adult HPI General Chief complaint: Nausea/Vomiting/Diarrhea Stated complaint: vomiting Time Seen by Provider: 03/15/25 22:23 Mode of Arrival: EMS Source of Information: Patient Description of Symptoms (Recalled from ER Triage Doc. by RN): Pt had a cervical fusion (2 levels) 2 weeks ago and has been staying at [facility] for rehab. Pt complains of nausea and vomiting that began this morning after breakfast. Staff has given her a total of 2 Zofran and a Meclizine with no relief. Pt denies feeling ill since her surgery, scheduled to follow up on Mar 21. No complaints of abdominal pain. History of Present Illness HPI narrative: This is a 74-year-old female patient, with past medical history of hypertension, hyperlipidemia, coronary artery disease, type 2 diabetes, hypothyroidism, who is presenting to the emergency department today for evaluation of nausea and vomiting with abdominal cramping. Patient states that her symptoms onset rather suddenly today. She had a cervical spinal fusion surgery approximately 2 weeks ago. She has been staying at [facility] rehab facility after this procedure. She states that today after her symptoms began she was treated with multiple doses of Zofran but she still kept having intractable nausea with vomiting. She was ultimately transferred here for higher level of care. She has not had any focal abdominal pain and denies diarrhea. She is not having chest pain or shortness of breath. Related Data Home Medications ?Medication ?Instructions ?Recorded ?Confirmed levothyroxine 112 mcg tablet 112 mcg PO DAILYDM 01/13/22 02/28/25 hydroxyzine pamoate 25 mg capsule 25 mg PO DAILY 12/26/24 02/28/25 Previous Rx's ?Medication ?Instructions ?Recorded aspirin 81 mg tablet,delayed 81 mg PO DAILY 30 days #30 tabs 06/05/23 release clopidogrel 75 mg tablet 75 mg PO DAILY 30 days #90 tabs 07/04/24 atorvastatin 40 mg tablet See Rx Instructions .Route 09/26/24 .COMPLEX #90 tabs bisoprolol fumarate 5 mg tablet See Rx Instructions .Route 09/26/24 .COMPLEX #90 tabs losartan 100 See Rx Instructions .Route 12/26/24 mg-hydrochlorothiazide 25 mg tablet .COMPLEX #90 tabs spironolactone 25 mg tablet 25 mg PO DAILY #90 tabs 02/01/25 (Aldactone) semaglutide 2 mg/dose (8 mg/3 mL) See Rx Instructions .Route 02/24/25 subcutaneous pen injector (Ozempic) .COMPLEX #3 mL Allergies Allergy/AdvReac Type Severity Reaction Status Date / Time niacin (NIACIN) Allergy Intermediate I-RASH Verified 02/28/25 11:19 [facility] Disclaimer: The information contained in this section may have been updated after the patient was seen, as this information can be updated by other users. Medical History Hyperreflexic Hearing Loss Anxiety Sinus drainage Hypotension History of breast cancer in female Diabetes mellitus Suspected underlying diabetic neuropathy, cannot exclude sensory ataxia Hearing impaired Non-ST elevation HI (NSTEMI) Influenza A Hypothyroidism Hypertensive urgency Influenza A NSTEMI (non-ST elevated myocardial infarction) Bronchitis Sinusitis Laryngitis Other specified symptoms and signs involving the circulatory and respiratory systems Small vessel arterial disease due to type 2 diabetes mellitus Subungual hematoma of toe of right foot Right second toe ulcer Diabetes mellitus with diabetic neuropathy Acute hyperglycemia Vertigo Breast cancer Osteoarthritis of feet, bilateral Acquired hallux valgus of both feet Acquired hammer toes of both feet Onychogryphosis Onychodystrophy Pre-ulcerative calluses Degenerative disc disease, cervical Surgical History History of lumpectomy History of tubal ligation History of coronary artery stent placement History of cataract surgery History of colonoscopy History of breast biopsy Family History Other Asthma Cancer Diabetes Family history of heart disease Heart attack Hyperlipidemia Hypertension Thyroid disorder Social History Smoking Status: Never smoker second hand exposure: No alcohol intake: never counseling provided: none substance use type: denies use current occupational status: retired Travel in the last 8 weeks?: None household members: spouse housing: house current occupational exposures/hazards: No caffeine: Yes Have you lived/traveled outside [place] in past 30 days?: No Contact w/someone who lives/traveled outside [place] past 30 days?: No Exposure to someone with infectious disease in past 14 days?: No Do you have a fever (greater than 100.4 F or 38 C)?: No Have you tested positive for COVID-19?: No Exposed to someone with COVID-19 in past 14 days?: No Do you have a sore throat?: No Do you have a cough?: No Do you have any weakness?: No Do you have any diarrhea?: No Are you experiencing any unusual bleeding?: No Do you have any muscle aches/pain?: No Do you have any abdominal pain?: No Are you experiencing loss of taste or smell?: No Other Medical History Have you received the Flu Vaccine for this season: No Have you received the Pneumonia Vaccine: No ROS Obtained: Yes Systems reviewed as appropriate & no additional complaints except as documented Physical Exam General General appearance: other (See MDM) Respiratory Respiratory exam: Present other (See MDM) Cardiovascular Cardiovascular exam: Present other (See MDM) Neurological Exam Neurological exam: Present other (See MDM) Medical Decision Making Medical Records Medical records reviewed: Yes I reviewed the patient's medical records. Screening: Per USPSTF and CDC recommendations, given the prevalence of disease in our region, it is our hospital?s policy to screen for HIV and viral Hepatitis for all patients aged 18 and over and those with ongoing risk factors. Hollis Inquiry Pt receiving controlled substance: No Hollis was queried for this patient: No Vital Signs: 03/15/25 21:39 Temperature 98.6 F Temperature Source Oral Pulse Rate [Right] 93 H Respiratory Rate 17 Blood Pressure [Right Arm] 195/74 H Blood Pressure Mean [Right Arm] 114 Blood Pressure Source [Right Arm] Automatic Cuff Blood Pressure Position [Right Arm] Sitting 02 Sat by Pulse Oximetry 95 Oxygen Delivery Method Room Air Lab Data Lab Results 03/15/25 22:05: WBC 8.2, RBC 3.89 L, Hgb 11.5 L, Hct 35.2 L, MCV 90.5, MCH 29.6, MCHC 32.7, RDW 13.3, Plt Count 303, MPV 9.9, Neut % (Auto) 79.5, Lymph % (Auto) 11.5, [place] % (Auto) 7.9, Eos % (Auto) 0.5, Baso % (Auto) 0.4, Neut # (Auto) 6.5, Lymph # (Auto) 0.9, [place] # (Auto) 0.7, Eos # (Auto) 0.0, Baso # (Auto) 0.0, Sodium 137, Potassium 4.5, Chloride 100, Carbon Dioxide 27, Anion Gap 14.5, BUN 24 H, Creatinine 1.40 H, Estimated Creat Clear 41, Estimated GFR 37 L, Est GFR ( Amer) 44 L, Glucose 118 H, Lactate 1.5, Calcium 9.0, Total Bilirubin 0.8, AST 39 H, ALT 30, Alkaline Phosphatase 140 H, Troponin I < 0.01, Total Protein 6.3, Albumin 3.6, Globulin 2.7, Albumin/Globulin Ratio 1.3, Lipase 103, HIV Ag/Ab Combo Qual Negative 03/16/25 00:56: Urine Color Yellow, Urine Appearance Cloudy, Urine pH 6.5, Ur Specific [place] 1.015, Urine Protein Negative, Urine Glucose (UA) Negative, Urine Ketones Negative, Urine Blood Negative, Urine Nitrate Positive A, Urine Bilirubin Negative, Urine Urobilinogen 2.0, Ur Leukocyte Esterase 1+ A, Urine WBC Tntc, Urine Bacteria 4+ 03/15/25 22:05 03/15/25 22:05 Orders (Tests/Meds): ED MEDICATIONS Generic Name Dose Route Start Last Admin Trade Name Freq PRN Reason Stop Dose Admin Ceftriaxone Sodium 2 gm/ 100 mls @ 200 mls/hr 03/16/25 01:59 Sodium Chloride IV 03/16/25 02:28 ONCE ONE Discontinued Medications Generic Name Dose Route Start Last Admin Trade Name Freq PRN Reason Stop Dose Admin Lactated Ringer's 1,000 mls @ 999 mls/hr 03/15/25 21:59 03/16/25 00:35 Lactated Ringer's 1000 Ml Bag IV 03/15/25 22:59 Infused .Q1H1M ONE Infusion Iopamidol 75 ml 03/15/25 23:36 03/15/25 23:37 Iopamidol-370 (76%);100ml Bottle IV 03/15/25 23:37 75 ml ONCE ONE Administration Ondansetron HCl 4 mg 03/15/25 21:59 03/15/25 22:30 Ondansetron 4mg/2ml Vial IV 03/15/25 22:00 4 mg ONCE ONE Administration Promethazine HCl 25 mg 03/15/25 23:01 03/15/25 23:20 Promethazine Hcl 25mg/Ml 1ml Vial IV 03/15/25 23:02 25 mg ONCE ONE Administration Sodium Chloride 25 ml 03/15/25 23:01 03/15/25 23:42 Sodium Chloride 0.9% 25ml Bag IV 03/15/25 23:02 25 ml ONCE ONE Administration Sodium Chloride 10 ml 03/15/25 23:36 03/15/25 23:36 Sodium Chloride 0.9% 10ml Syr (Rad Only) IV 03/15/25 23:37 10 ml ONCE ONE Administration Trimethoprim/Sulfamethoxazole 1 each 03/16/25 01:06 Sulfa/Trimethoprim 1 Tablet PO 03/16/25 01:07 ONCE ONE ORDERS Category Date Time Status CT abdomen pelvis w con Stat Cat Scan 03/15/25 21:59 Completed CBC w/Auto Diff [Complete Blood Count Auto Diff] Stat Lab 03/15/25 22:05 Completed CMP [Comprehensive Metabolic Panel] Stat Lab 03/15/25 22:05 Completed HIV Combo Routine Lab 03/15/25 22:05 Completed Lactic Acid Stat Lab 03/15/25 22:05 Completed Lipase Stat Lab 03/15/25 22:05 Completed Mini Respiratory Panel Stat Lab 03/15/25 21:59 Ordered Troponin I Q3H Lab 03/16/25 04:00 Ordered Troponin I Stat Lab 03/15/25 22:05 Completed Urinalysis and Microscopic Stat Lab 03/16/25 00:56 Completed Urine Culture Stat Micro 03/16/25 00:56 Received ECG Data Tracing #1: I reviewed this ECG and interpreted as documented below: EKG personally interpreted by me demonstrates normal sinus rhythm at a rate of 83 bpm, normal axis, no NM prolongation, narrow QRS, no QTc prolongation. No ST ovation or depression. No overt signs of ischemia or arrhythmia Medical Decision Narrative: In summary this is a 74-year-old female patient who is presenting to the emergency department today for evaluation of intractable nausea and vomiting with abdominal cramping onset earlier today. She is currently staying at [facility] after a cervical spinal fusion 2 weeks ago. Patient's comorbidities include hypertension, hyperlipidemia, diabetes, CAD, and hypothyroidism. On initial evaluation of the patient they were resting comfortably in no acute distress and nontoxic in appearance. They are hemodynamically stable, saturating well room air, and are neurologically intact. On physical examination the patient has diffuse abdominal tenderness to palpation with no obvious rip peritonitis. Heart lungs clear to auscultation bilaterally. She does not have significant lower extremity erythema or edema. Differential diagnosis includes gastritis, gastroenteritis, enteritis, colitis, intra-abdominal abscess, pancreatitis, urinary tract infection, ACS/HI, electrolyte derangement, and acute kidney injury. Workup was initiated with hematologic labs as well as an EKG, urinalysis, and CT scan of the abdomen and pelvis with IV contrast. Labs were personally interpreted by me and demonstrate No evidence of leukocytosis, no Transfusable anemia, no significant electrolyte derangements and no evidence of acute kidney injury. She does not have a significant transaminitis. Troponin is less than 0.01. Bilirubin is normal. Lipase is normal. Urinalysis was personally interpreted by me and demonstrates positive nitrates with leukocyte esterase, too numerous to count white blood cells, and 4+ bacteria. I do feel that this is consistent with urinary tract infection. CT scan of the abdomen and pelvis was personally turbid by me and demonstrates no evidence of pneumoperitoneum. Official radiology read is in agreement and states there is findings of enteritis as well as other chronic findings noted in the official radiology read. My initial plan was to discharge this patient home to [facility] and have her take oral antiemetics and Bactrim. However, at the time of administration of Bactrim the patient began vomiting again this was after being treated with both Zofran and promethazine here in the emergency department. At this point the patient and her family do not feel comfortable with her going home and if she is unable to tolerate oral antibiotics for urinary tract infection I do not feel that this is the wisest decision. Therefore I had an interactive discussion with the internal medicine service who agreed to evaluate the patient in the emergency department. After our discussion and their evaluation they have agreed to admit the patient to their service and accept primary responsibility the patient moving forward Critical Care Critical Care Time Critical Care Time: No
[2025-03-15 22:23] LABS: Hematocrit 35.2 % (37.0-47.0); Hemoglobin 11.5 g/dL (12.2-16.2); Immature Granulocytes % 0.2 %; Mean Corpuscular HGB Conc 32.7 g/dL (31.8-35.4); Mean Corpuscular Hemoglobin 29.6 pg (27.0-31.2); Mean Corpuscular Volume 90.5 fl (81-99); Nucleated Red Blood Cells % 0 %; Platelet Count 303 K/mm3 (142-424); Red Blood Count 3.89 M/mm3 (4.20-5.40); Red Cell Distribution Width-SD 44.2 fL; White Blood Count 8.2 K/mm3 (4.8-10.8)
[2025-03-15 22:30] LABS: Albumin Level 3.6 g/dl (3.5-5.0); Chloride 100 mmol/L (98-107); Sodium 137 mmol/L (136-145)
[2025-03-15] MEDS: ONDANSETRON 4MG/2ML VIAL 4 MG IV (22:30)
[2025-03-15] MEDS: LACTATED RINGERS 1000ML 1,000 ML 999 ML IV (22:30)
[2025-03-15 22:31] LABS: Potassium 4.5 mmoL/L (3.5-5.1)
[2025-03-15 22:33] LABS: Alanine Aminotransferase 30 U/L (12-78); Albumin/Globulin Ratio 1.3 (1.1-1.8); Alkaline Phosphatase 140 U/L (38-126); Anion Gap 14.5 mEq/L (5-15); Aspartate Amino Transferase 39 U/L (14-36); Bilirubin,Total 0.8 mg/dl (0.2-1.3); Blood Urea Nitrogen 24 mg/dl (7-17); Carbon Dioxide 27 mmol/L (22.0-30.0); Creatinine Clearance Estimated 41 mL/min (50-200); Creatinine,Serum 1.40 mg/dl (0.52-1.04); Estimated Glomerular Filt Rate 37 ml/min (>60); GFR (African American) 44 ML/MIN (>60); Globulin 2.7 g/dL (1.3-3.2); Lipase 103 U/L (23-300); Total Protein,Serum 6.3 g/dl (6.3-8.2)
[2025-03-15 22:34] LABS: Calcium 9.0 mg/dl (8.4-10.2); Glucose 118 mg/dl (74-100)
[2025-03-15 22:47] LABS: Troponin I < 0.01 ng/ml (0.00-0.034)
[2025-03-15] MEDS: PROMETHAZINE HCL 25MG/ML 1ML VIAL 25 MG IV (23:20)
[2025-03-15] MEDS: SODIUM CHLORIDE 0.9% 10ML SYR (RAD ONLY) 10 ML IV (23:36)
[2025-03-15] MEDS: IOPAMIDOL-370 (76%);100ML BOTTLE 75 ML IV (23:37)
[2025-03-15] MEDS: SODIUM CHLORIDE 0.9% 25ML BAG 25 ML IV (23:42)
--- NOTE | 2025-03-15 23:55 | PC.NURSE ---
bladder scanned pt 259ml present
[2025-03-16] VITALS (14 sets, daily range): BP systolic 138–173; BP diastolic 67–86; PULSE 66–97; RESP 14–16; TEMP 36.5–36.9; O2SAT 88–97; BMI 27.6
--- NOTE | 2025-03-16 00:57 | PC.NURSE ---
pt in/out cath, ua sent
[2025-03-16 00:59] LABS: Microscopic, Urine URINE MICROSCOPIC (MICROSCOPIC)
[2025-03-16 01:01] LABS: Bilirubin,Urine Negative (Negative); Color,Urine YELLOW (Yellow); Glucose,Urine (UA) Negative (Negative); Ketones,Urine Negative (Negative); Leukocyte Esterase,Urine 1+ (Negative); PH,Urine 6.5 (5.0-8.5); Protein,Urine Negative (Negative); Specific Gravity, Urine 1.015 (1.005-1.030); Urobilinogen,Urine 2.0 EU/dl (0.2)
[2025-03-16 01:06] LABS: Bacteria,Urine 4+ /lpf; WBC,Urine TNTC #/hpf (0-3)
--- NOTE | 2025-03-16 01:48 | PC.NURSE ---
attempt to give ordered medication with patient becoming nauseous , provider aware.
[2025-03-16] MEDS: 0.9 % SODIUM CHLORIDE 1000ML 1,000 ML 75 ML IV ×2 (02:26→16:02)
[2025-03-16 02:50] LABS: Coronavirus 19, PCR Not Detected (NotDetected); Influenza A, PCR Not Detected (NotDetected); Influenza B, PCR Not Detected (NotDetected)
--- NOTE | 2025-03-16 02:50 | PC.NURSE ---
Patient arrived to floor via stretcher from ED at 02:49.
--- NOTE | 2025-03-16 03:36 | P.HP_ITS ---
<Statement entered by Jerry Barreto MD - 03/16/25 16:20> Rounded on patient after nurse practitioner. Personally examined and interviewed patient. Agree with exam findings and care plan as documented. History of Present Illness *Admission Date: 03/16/25 *Reason for visit:: intractable vominting *History of present illness: 74-year-old female patient presents to ER from a rehab facility with nausea and vomiting that started about 1030 this morning. She denies diarrhea. Denies fever but states she has felt cold and hot. She was given Zofran at the rehab facility during the day without improvement so she was transported to the ER for further evaluation. She had a cervical fusion done recently and that is why she is in the rehab facility plan is for her to go home after that. In the ER she was found to have UTI. She denies hematuria, dysuria or urinary retention. She was started on Rocephin. Initially tried to give oral antibiotics but she was still vomiting and would be unable to keep them down. [facility] Disclaimer: The information contained in this section may have been updated after the patient was seen, as this information can be updated by other users. Medical History (Updated 03/16/25 @ 03:40 by Cecilia Waterman APRN) Hyperreflexic Hearing Loss Anxiety Sinus drainage Hypotension History of breast cancer in female Diabetes mellitus Hearing impaired Non-ST elevation LA (NSTEMI) Influenza A Hypothyroidism Hypertensive urgency Influenza A NSTEMI (non-ST elevated myocardial infarction) Bronchitis Sinusitis Laryngitis Other specified symptoms and signs involving the circulatory and respiratory systems Small vessel arterial disease due to type 2 diabetes mellitus Subungual hematoma of toe of right foot Right second toe ulcer Diabetes mellitus with diabetic neuropathy Acute hyperglycemia Vertigo Breast cancer Osteoarthritis of feet, bilateral Acquired hallux valgus of both feet Acquired hammer toes of both feet Onychogryphosis Onychodystrophy Pre-ulcerative calluses Degenerative disc disease, cervical Surgical History (Updated 03/16/25 @ 03:40 by Cecilia Waterman APRN) S/P cervical spinal fusion History of lumpectomy History of tubal ligation History of coronary artery stent placement History of cataract surgery History of colonoscopy History of breast biopsy Family History Other Asthma Cancer Diabetes Family history of heart disease Heart attack Hyperlipidemia Hypertension Thyroid disorder Social History (Updated 03/16/25 @ 03:36 by Catalina Amaya RN) Smoking Status: Never smoker second hand exposure: No alcohol intake: never counseling provided: none substance use type: denies use current occupational status: retired Travel in the last 8 weeks?: None household members: spouse housing: house current occupational exposures/hazards: No caffeine: Yes Have you lived/traveled outside [place] in past 30 days?: No Contact w/someone who lives/traveled outside US past 30 days?: No Exposure to someone with infectious disease in past 14 days?: No Do you have a fever (greater than 100.4 F or 38 C)?: No Have you tested positive for COVID-19?: No Exposed to someone with COVID-19 in past 14 days?: No Do you have a sore throat?: No Do you have a cough?: No Do you have any weakness?: No Are you experiencing any nausea/vomitting?: No Do you have any diarrhea?: No Are you experiencing any unusual bleeding?: No Do you have any muscle aches/pain?: No Do you have any abdominal pain?: No Are you experiencing loss of taste or smell?: No Other Medical History Have you received the Flu Vaccine for this season: No Have you received the Pneumonia Vaccine: No Review of Systems Constitutional Constitutional: Reports chills Eyes Eyes: Reports system reviewed and no additional complaints, except as documented ENT Ears, Nose, Mouth, and Throat: Reports system reviewed and no additional complaints, except as documented *Cardiovascular Cardiovascular: Denies chest pain and Denies dyspnea *Respiratory Respiratory: Reports system reviewed and no additional complaints, except as documented and Denies dyspnea *Gastrointestinal Gastrointestinal: Denies abdominal pain, Reports bloating, Reports nausea and Reports vomiting *Genitourinary Genitourinary: Reports system reviewed and no additional complaints, except as documented *Musculoskeletal Musculoskeletal: Reports system reviewed and no additional complaints, except as documented Integumentary/Breasts Skin/Breast: Reports system reviewed and no additional complaints, except as documented *Neurologic Neurologic: Reports system reviewed and no additional complaints, except as documented Psychiatric Psychiatric: Reports system reviewed and no additional complaints, except as documented Endocrine Endocrine: Reports system reviewed and no additional complaints, except as documented Hematologic/Lymphatic Hematologic/Lymphatic: Reports system reviewed and no additional complaints, except as documented Meds Home Medications and Allergies Home Medications ?Medication ?Instructions ?Recorded ?Confirmed ?Type levothyroxine 112 mcg tablet 112 mcg PO DAILYDM 03/16/25 History aspirin 81 mg tablet,delayed 81 mg PO DAILY 30 days #3 0 tabs 06/05/23 03/16/25 Rx release clopidogrel 75 mg tablet 75 mg PO DAILY 30 days #90 t abs 07/04/24 03/16/25 Rx hydroxyzine pamoate 25 mg capsule 25 mg PO TIDP PRN It alberto 12/26/24 03/16/25 History spironolactone 25 mg tablet 25 mg PO DAILY #90 tabs 03/16/25 Rx (Aldactone) atorvastatin 40 mg tablet 40 mg PO HS 03/16/25 5 History bisoprolol fumarate 5 mg tablet 5 mg PO DAILY 03/16/25 03/16/25 History cholecalciferol (vitamin D3) 50 50 mcg PO DAILY 03/16/25 History mcg (2,000 unit) tablet (Vitamin D3) cyclobenzaprine 5 mg tablet 5 mg PO TID PRN [place] sm 03/16/25 03/16/25 History ferrous sulfate 325 mg (65 mg 325 mg PO MOWEFR 5 03/16/25 History iron) tablet,delayed release losartan 100 1 tab PO DAILY 03/16/2503/01 History mg-hydrochlorothiazide 25 mg tablet semaglutide 2 mg/dose (8 mg/3 mL) 2 mg SQ WEEKLY 03/1603/16/25 History subcutaneous pen injector (Ozempic) New Prescriptions to Start Prescriptions: Allergies Allergy/AdvReac Type Severity Reaction Status Date / Time niacin (NIACIN) Allergy Intermediate I-RASH Verified 02/28/25 11:19 Exam Data for Last 24 hours Vital signs and Labs for Last 24 Hours: Temp Pulse Resp BP Pulse Ox O2 Del Method 98.4 F 92 H 16 152/84 H 95 Room Air 03/16/25 02:42 03/16/25 02:42 03/16/25 02:42 03/16/25 02:42 03/16/25 02:00 03/16/25 02:42 Laboratory Results - last 24 hr 03/15/25 22:05: WBC 8.2, RBC 3.89 L, Hgb 11.5 L, Hct 35.2 L, MCV 90.5, MCH 29.6, MCHC 32.7, RDW 13.3, Plt Count 303, MPV 9.9, Neut % (Auto) 79.5, Lymph % (Auto) 11.5, [place] % (Auto) 7.9, Eos % (Auto) 0.5, Baso % (Auto) 0.4, Neut # (Auto) 6.5, Lymph # (Auto) 0.9, [place] # (Auto) 0.7, Eos # (Auto) 0.0, Baso # (Auto) 0.0, Sodium 137, Potassium 4.5, Chloride 100, Carbon Dioxide 27, Anion Gap 14.5, BUN 24 H, Creatinine 1.40 H, Estimated Creat Clear 41, Estimated GFR 37 L, Est GFR ( Amer) 44 L, Glucose 118 H, Lactate 1.5, Calcium 9.0, Total Bilirubin 0.8, AST 39 H, ALT 30, Alkaline Phosphatase 140 H, Troponin I < 0.01, Total Protein 6.3, Albumin 3.6, Globulin 2.7, Albumin/Globulin Ratio 1.3, Lipase 103, HIV Ag/Ab Combo Qual Negative 03/16/25 00:56: Urine Color Yellow, Urine Appearance Cloudy, Urine pH 6.5, Ur Specific [place] 1.015, Urine Protein Negative, Urine Glucose (UA) Negative, Urine Ketones Negative, Urine Blood Negative, Urine Nitrate Positive A, Urine Bilirubin Negative, Urine Urobilinogen 2.0, Ur Leukocyte Esterase 1+ A, Urine WBC Tntc, Urine Bacteria 4+ I & O for Last 24 hours: Intake & Output 03/13/25 03/14/25 03/15/25 03/16/25 23:59 23:59 23:59 23:59 Intake Total 1000 / 1000 Balance 1000 / 1000 Weight 73.936 kg Constitutional Constitutional: mild distress *Routine HEENT Exam Head: Present normocephalic and atraumatic Eye: Present PERRL ENT: Present mucous membranes moist *Routine Neck Exam Neck: Present supple Comments: C-collar on status post cervical fusion. Incision is dressed at this time. *Routine Respiratory Exam Respiratory: Present CTA bilaterally *Routine Cardiovascular Exam Cardiovascular: Present RRR, Normal S1 and Normal S2 *Routine Abdominal Exam Abdominal: Present soft and normoactive bowel sounds; Absent tenderness *Routine Rectal Exam Rectal:: deferred *Routine Genitalia Exam Genitalia:: deferred *Routine Extremities Exam Extremities: Present pulses intact; Absent edema *Routine Skin Exam Skin: Present intact *Routine Neurological Exam Neurological: Present alert, oriented X3 and moving all extremities Routine Psychiatric Exam Psychiatric: Present normal affect Assessment and Plan *Assessment and plan (1) Intractable vomiting with nausea: Status: Acute Category: Medical Code(s): R11.2 - Nausea with vomiting, unspecified (2) Urinary tract infection: Status: Acute Qualifiers: Hematuria presence: without hematuria Urinary tract infection type: acute cystitis Qualified Code(s): N30.00 - Acute cystitis without hematuria Category: Medical Code(s): N39.0 - Urinary tract infection, site not specified (3) Enteritis: Status: Acute Category: Medical Code(s): K52.9 - Noninfective gastroenteritis and colitis, unspecified (4) Hypothyroidism (acquired): Status: Acute Category: Medical Code(s): E03.9 - Hypothyroidism, unspecified (5) History of breast cancer: Problem Comment: Right lumpectomy Status: Resolved Category: Medical Code(s): Z85.3 - Personal history of malignant neoplasm of breast (6) HLD (hyperlipidemia): Status: Acute Qualifiers: Hyperlipidemia type: unspecified Qualified Code(s): E78.5 - Hyperlipidemia, unspecified Category: Medical Code(s): E78.5 - Hyperlipidemia, unspecified (7) HTN (hypertension): Status: Chronic Qualifiers: Hypertension type: unspecified Qualified Code(s): I10 - Essential (primary) hypertension Category: Medical Code(s): I10 - Essential (primary) hypertension (8) CAD (coronary artery disease): Status: Chronic Qualifiers: Associated angina: without angina Coronary Disease-Associated Artery/Lesion type: [place] artery [place] vs. transplanted heart: [place] heart Qualified Code(s): I25.10 - Atherosclerotic heart disease of [place] coronary artery without angina pectoris Category: Medical Code(s): I25.10 - Atherosclerotic heart disease of [place] coronary artery without angina pectoris (9) Diabetes mellitus: Problem Comment: Suspected underlying diabetic neuropathy, cannot exclude sensory ataxia Status: Chronic Qualifiers: Diabetes mellitus complication status: with other specified complication Diabetes mellitus [facility] insulin use: without long term care pharmacist use Diabetes mellitus type: type 2 Qualified Code(s): E11.69 - Type 2 diabetes mellitus with other specified complication Category: Medical Code(s): E11.9 - Type 2 diabetes mellitus without complications Plan Patient will be admitted for further treatment. Findings and ER show enteritis as well as a UTI. Vomiting is intractable and therefore unable to take oral antibiotics for the UTI. Keep NPO. She will receive IV fluids for hydration. She will have IV Zofran as needed. Rocephin IV started in the ER and that will be continued. TSH in January was 2.37 so would likely be able to continue her thyroid replacement as well as her home meds for hypertension, hyperlipidemia and CAD. Glucose on admission was 118 will provide sliding scale coverage every 6 hours while she is NPO. Continued assessment: Patient continues to have nausea and inability to tolerate p.o. intake. Patient continues to receive IV fluids. Will attempt to advance diet to clear liquids for dinner. Continuing ceftriaxone 1 g every 24 hour. Continues to necessitate inpatient management due to inability to tolerate p.o. intake, plans for potential discharge tomorrow. Urine culture still pending.
[2025-03-16 05:01] LABS: Troponin I < 0.01 ng/ml (0.00-0.034)
--- NOTE | 2025-03-16 07:20 | PC.WOUNDNOTE ---
2 week post op surgical incision, healing scabbed incision from top of neck to bottom of neck
--- NOTE | 2025-03-16 08:03 | SW/DCPLANNER ---
Addendum entered by Betty Aquino 03/17/25 10:07: I have updated Stevie linda/ Prashant Bustos that patient will return today SNF level of care. Addendum entered by Betty Aquino 03/16/25 10:44: Per Stevie patient is agreeable to bedhold payment. Per Stevie patient can return once medically stable for discharge. Original Note: Patient currently resides at [facility] level of care. Updated patient information will be faxed to Stevie linda/ Prashant Bustos. Discharge date is unknown at this time.
--- NOTE | 2025-03-16 08:37 | HMH.PTEV ---
Physical Therapy Evaluation Rehab PT IP Evaluation Start: 03/16/25 03:37 Freq: ONCE Status: Active Protocol: Document 03/16/25 08:27 HECTOR (Rec: 03/16/25 08:36 HECTOR [id number]) Subjective/History History History Per H&P: 74-year-old female patient presents to ER from a rehab facility with nausea and vomiting that started about 1030 this morning. She denies diarrhea. Denies fever but states she has felt cold and hot. She was given Zofran at the rehab facility during the day without improvement so she was transported to the ER for further evaluation. She had a cervical fusion done recently and that is why she is in the rehab facility plan is for her to go home after that. In the ER she was found to have UTI. She denies hematuria, dysuria or urinary retention. She was started on Rocephin. Initially tried to give oral antibiotics but she was still vomiting and would be unable to keep them down. Subjective Subjective Pt is currently receiving skilled rehab at [facility] [place]. Prior to rehab pt lived with her and was IND with mobility. Pt to use cervical collar AAT when OOB. New diagnosis of No cancer in past 12 months? [facility] How much help from another person do you currently need... Turning from your A little back to your side while in a flat bed without using bedrails? Moving from lying on A little back to sitting on the side of a flat bed without using bedrails? Moving to and from a A little bed to a chair ( including a wheelchair)? Standing up from a A lot chair using your arms? (e.g., wheelchair, bedside chair) Walking in hospital A lot room? Climbing 3-5 steps A lot with a railing? Mobility Score 15 Mobility Level [facility] Mobility 4 Move to chair/commode Mobility Calculator Rehab PT IP Eval Objective Appearance Patient Behavior Appropriate,Cooperative Patient Orientation Person Difficulty following none instructions Speech Pattern Clear Ambulation Patient Able to No Ambulate Balance Ability to Arise Able, uses arms to help Sitting Balance Steady, safe Standing Balance Unsteady Rehab PT IP prob,goals,plan Problems Date of Evaluation: 03/16/25 PT IP Problems Bed Mobility,Transfers,Gait,Balance,Self care,Safety Rehab Potential Rehab Potential Good Plan PT Intervention Plan Bed Mobility,Transfers,Gait,Balance,Self care,Safety, Therapeutic Exercise Other Intervention 1-2 times Plan PT Plan Frequency Daily Duration LOS Discharge Goals Bed Transfer Ability Supervision/Stand by Sit to Stand Chair Supervision/Stand by Transfer Ability Ambulation Assistive Rolling Walker Device Ambulation Distance 10 (feet) Discharge Plan PT Discharge Plan PT evaluation limited by pt nausea and bladder incontinence. Pt most appropriate for returning to skilled inpatient rehab upon d/c from [facility]. Pt would benefit from PT while at [facility] to address deficits and prevent further functional decline. Eval Complexity Eval Charge Codes 54915 - Moderate Complexity PHYSICIAN CERTIFICATION: I certify the specified therapy services for Lavinia Iyer are required, authorized, and reviewed every 30 days.
[2025-03-16] MEDS: CLOPIDOGREL 75MG TAB 75 MG PO (09:26)
[2025-03-16] MEDS: ASPIRIN EC 81MG TABLET 81 MG PO (09:26)
[2025-03-16] MEDS: ONDANSETRON 4MG/2ML VIAL 4 MG IV ×2 (09:32→20:20)
[2025-03-16] MEDS: IRBESARTAN 150MG TAB 150 MG PO (09:47)
[2025-03-16] MEDS: LEVOTHYROXINE 112MCG (0.112MG) TAB 112 MCG PO (09:47)
[2025-03-16] MEDS: BISOPROLOL 5MG TABLET 5 MG PO (09:48)
[2025-03-16] MEDS: SPIRONOLACTONE 25MG TABLET 25 MG PO (09:48)
--- NOTE | 2025-03-16 10:03 | HMH.OTEV ---
OT Evaluation Rehab OT IP Evaluation Start: 03/16/25 03:37 Freq: ONCE Status: Active Protocol: Document 03/16/25 09:56 [facility] (Rec: 03/16/25 10:02 [facility] [id number]) Rehab OT IP Assessment Subjective History Pt oriented x 2 on arrival. Pt agreeable to engage in therapy evaluation. Pt admitted on 03/16/25 due to vomiting and UTI. Per H&P: 74-year-old female patient presents to ER from a rehab facility with nausea and vomiting that started about 1030 this morning. She denies diarrhea. Denies fever but states she has felt cold and hot. She was given Zofran at the rehab facility during the day without improvement so she was transported to the ER for further evaluation. She had a cervical fusion done recently and that is why she is in the rehab facility plan is for her to go home after that. In the ER she was found to have UTI. She denies hematuria, dysuria or urinary retention. She was started on Rocephin. Initially tried to give oral antibiotics but she was still vomiting and would be unable to keep them down. Subjective Pt is currently receiving skilled rehab at [facility] [place], [place]. Prior to rehab pt lived with her and was IND with functional transfers. She has been using a rolling walker during functional transfer recently. Pt claims normally she is independent with ADLs and IADLs. However, since surgery she has been requiring assistance with ADLs: mainly dressing and bathing. Pt to use cervical collar AAT when OOB. Objective Patient Orientation Person,Place,Birthday Right Upper WFL Extremity Gross ROM Left Upper Extremity WFL Gross ROM Bed Mobility bed mobility-scooting,bed mobility - supine/sit Assist Level Minimal x 1 (25% assist) Rehab OT IP prob,goals,plan Problems Date of Evaluation: 03/16/25 OT IP Problems Bed Mobility,Transfers,Balance,Self care,Safety Rehab Potential Rehab Potential Good Equipment Needs Assistive Devices Rolling / Wheeled Walker Plan OT intervention Plan Bed Mobility,Transfers,Balance,Self care,Safety, Therapeutic Exercise OT Plan Frequency Daily Duration LOS Discharge Goals Bed Mobility Ability Standby Assistance Sit to Stand Chair Minimal x 1 (25% assist) Transfer Ability Chair Transfer Minimal x 1 (25% assist) Ability Chair Transfer Sit to/from Ambulatory Technique Chair Transfer Rolling Walker Assistive Devices Feeding Ability Assist with Tray Set Up Lower Body Dressing Moderate Assistance Ability Upper Body Dressing Minimal Assistance Ability Performing Toilet Moderate Assistance Hygiene Ability Overall Commode/ Minimal Assistance Toilet Transfer Ability Commode/Toilet Sit to/from Ambulatory Transfer Technique Discharge Plan OT Discharge Plan Pt will continue to be seen for OT services while at [facility]. Pt would benefit from returning to [facility] upon discharge and continuing with short term rehab. Continued skilled therapy is important in order for patient to improve strengthening, safety, endurance, ADL independence, and functional transfers to reach [facility]. Eval Complexity Eval Charge Codes 64102 - Moderate Complexity PHYSICIAN CERTIFICATION: I certify the specified therapy services for Lavinia Iyer are required, authorized, and reviewed every 30 days.
[2025-03-16 10:48] LABS: POC Glucose,Bedside 96 gm/dL (70-110)
[2025-03-16 15:28] LABS: Hematocrit 36.0 % (37.0-47.0); Hemoglobin 11.5 g/dL (12.2-16.2); Immature Granulocytes % 0.2 %; Mean Corpuscular HGB Conc 31.9 g/dL (31.8-35.4); Mean Corpuscular Hemoglobin 29.3 pg (27.0-31.2); Mean Corpuscular Volume 91.8 fl (81-99); Nucleated Red Blood Cells % 0 %; Platelet Count 307 K/mm3 (142-424); Red Blood Count 3.92 M/mm3 (4.20-5.40); Red Cell Distribution Width-SD 46.4 fL; White Blood Count 9.7 K/mm3 (4.8-10.8)
[2025-03-16 15:46] LABS: Alanine Aminotransferase 32 U/L (12-78); Albumin Level 3.5 g/dl (3.5-5.0); Albumin/Globulin Ratio 1.5 (1.1-1.8); Alkaline Phosphatase 138 U/L (38-126); Anion Gap 14.2 mEq/L (5-15); Aspartate Amino Transferase 38 U/L (14-36); Bilirubin,Total 0.7 mg/dl (0.2-1.3); Blood Urea Nitrogen 23 mg/dl (7-17); Calcium 9.3 mg/dl (8.4-10.2); Carbon Dioxide 27 mmol/L (22.0-30.0); Chloride 102 mmol/L (98-107); Creatinine Clearance Estimated 41 mL/min (50-200); Creatinine,Serum 1.40 mg/dl (0.52-1.04); Estimated Glomerular Filt Rate 37 ml/min (>60); GFR (African American) 44 ML/MIN (>60); Globulin 2.4 g/dL (1.3-3.2); Glucose 106 mg/dl (74-100); Potassium 4.2 mmoL/L (3.5-5.1); Sodium 139 mmol/L (136-145); Total Protein,Serum 5.9 g/dl (6.3-8.2)
[2025-03-16 17:30] LABS: POC Glucose,Bedside 100 gm/dL (70-110)
[2025-03-16 20:22] LABS: POC Glucose,Bedside 95 gm/dL (70-110)
[2025-03-17] VITALS: BP 138/62; PULSE 78; RESP 12; TEMP 36.7; O2SAT 97
[2025-03-17 04:00] VITALS: BP 137/70; PULSE 73; RESP 14; TEMP 36.6; O2SAT 94; BMI 27.5
[2025-03-17 06:21] LABS: POC Glucose,Bedside 91 gm/dL (70-110)
[2025-03-17 08:00] VITALS: BP 134/61; PULSE 96; RESP 16; TEMP 36.7; O2SAT 94
[2025-03-17] MEDS: SPIRONOLACTONE 25MG TABLET 25 MG PO (08:40)
[2025-03-17] MEDS: LEVOTHYROXINE 112MCG (0.112MG) TAB 112 MCG PO (08:41)
[2025-03-17] MEDS: IRBESARTAN 150MG TAB 150 MG PO (08:42)
[2025-03-17] MEDS: BISOPROLOL 5MG TABLET 5 MG PO (08:42)
[2025-03-17] MEDS: 0.9 % SODIUM CHLORIDE 1000ML 1,000 ML 75 ML IV (08:42)
[2025-03-17] MEDS: ASPIRIN EC 81MG TABLET 81 MG PO (08:42)
[2025-03-17] MEDS: CLOPIDOGREL 75MG TAB 75 MG PO (08:42)
--- NOTE | 2025-03-17 09:40 | P.DS_ITS ---
<Statement entered by Jerry Barreto MD - 03/17/25 18:00> Rounded on patient after nurse practitioner. Personally examined and interviewed patient. Agree with exam findings and care plan as documented. General Admission date:: 03/16/25 Discharge date: 03/17/25 HPI HPI HPI: 74-year-old female patient presents to ER from a rehab facility with nausea and vomiting that started about 1030 this morning. She denies diarrhea. Denies fever but states she has felt cold and hot. She was given Zofran at the rehab facility during the day without improvement so she was transported to the ER for further evaluation. She had a cervical fusion done recently and that is why she is in the rehab facility plan is for her to go home after that. In the ER she was found to have UTI. She denies hematuria, dysuria or urinary retention. She was started on Rocephin. Initially tried to give oral antibiotics but she was still vomiting and would be unable to keep them down. Hospital Course Hospital Course Hospital Course: Ms. Iyer is a 74-year-old female who presented to the emergency department yesterday with complaints of nausea and vomiting. She denies diarrhea, fever, chills, chest pain, shortness of breath. She is currently at [facility] for rehab due to recent cervical spine fusion. She has been at the facility for approximately 2 weeks. She is doing well with therapy. Workup in the emergency department was significant for urinary tract infection, patient does deny hematuria, dysuria, or urinary retention. She was initiated on Rocephin 2 g IV, transition to 1 g IV. She received 2 doses during her admission. Will transition to cefdinir 300 mg twice daily at discharge for a total of 5 days. Attempted to discharge patient back to SNF facility from the ED but she had increased nausea and vomiting and was unable to tolerate p.o. intake. Patient was subsequently admitted for IV antibiotics and fluid resuscitation. Patient received IV fluids during admission and antiemetics. She is now able to tolerate p.o. intake since yesterday evening. She does still complain of intermittent nausea but has not had any vomiting in the past 24 hours. Will discharge patient home with Zofran 4 mg every 6 hours as needed for episodes of nausea. Patient should advance diet as tolerated. Patient remained hemodynamically stable during admission, afebrile. She will return back to [facility] for continued rehab services. Patient should continue previous medication regimen with the exception of holding Ozempic x 2 weeks. Exam Data for Last 24 hours Vital signs and Labs for Last 24 Hours: Temp Pulse Resp BP Pulse Ox O2 Del Method 98.1 F 96 H 16 134/61 94 L Room Air 03/17/25 08:00 03/17/25 08:00 03/17/25 08:00 03/17/25 08:00 03/17/25 08:00 03/17/25 08:00 Laboratory Results - last 24 hr 03/16/25 00:56: Urine Color Yellow, Urine Appearance Cloudy, Urine pH 6.5, Ur Specific [place] 1.015, Urine Protein Negative, Urine Glucose (UA) Negative, Urine Ketones Negative, Urine Blood Negative, Urine Nitrate Positive A, Urine Bilirubin Negative, Urine Urobilinogen 2.0, Ur Leukocyte Esterase 1+ A, Urine WBC Tntc, Urine Bacteria 4+ 03/16/25 10:41: POC Glucose 96 03/16/25 15:25: WBC 9.7, RBC 3.92 L, Hgb 11.5 L, Hct 36.0 L, MCV 91.8, MCH 29.3, MCHC 31.9, RDW 13.6, Plt Count 307, MPV 9.8, Neut % (Auto) 70.2, Lymph % (Auto) 19.4, [place] % (Auto) 8.4, Eos % (Auto) 1.2, Baso % (Auto) 0.6, Neut # (Auto) 6.8, Lymph # (Auto) 1.9, [place] # (Auto) 0.8, Eos # (Auto) 0.1, Baso # (Auto) 0.1, Sodium 139, Potassium 4.2, Chloride 102, Carbon Dioxide 27, Anion Gap 14.2, BUN 23 H, Creatinine 1.40 H, Estimated Creat Clear 41, Estimated GFR 37 L, Est GFR ( Amer) 44 L, Glucose 106 H, Calcium 9.3, Total Bilirubin 0.7, AST 38 H, ALT 32, Alkaline Phosphatase 138 H, Total Protein 5.9 L, Albumin 3.5, Globulin 2.4, Albumin/Globulin Ratio 1.5 03/16/25 16:46: POC Glucose 100 03/16/25 20:15: POC Glucose 95 03/17/25 06:14: POC Glucose 91 Temp Pulse Resp BP Pulse Ox O2 Del Method O2 Flow Rate 98.3 F 88 16 131/71 93 L Nasal Cannula 2 06/05/23 08:00 06/05/23 08:00 06/05/23 08:00 06/05/23 08:00 06/05/23 08:00 06/05/23 08:00 06/05/23 08:00 Laboratory Results - last 24 hr 06/04/23 12:15: Activated Clotting Time 332 H* 06/04/23 16:29: POC Glucose 132 H 06/04/23 20:42: POC Glucose 102 I & O for Last 24 hours: Intake & Output 03/14/25 03/15/25 03/16/25 03/17/25 23:59 23:59 23:59 23:59 Intake Total 2460 / 2700 1500 / 1500 Output Total 100 / 100 100 / 100 Balance 2360 / 2600 1400 / 1400 Weight 73.936 kg 75.115 kg 74.979 kg Intake & Output 06/02/23 06/03/23 06/04/23 06/05/23 23:59 23:59 23:59 23:59 Intake Total 630 / 630 710 / 710 290 / 290 Output Total 0 / 0 0 / 0 470 / 470 0 / 0 Balance 630 / 630 710 / 710 -180 / -180 0 / 0 Weight 81.675 kg 81.68 kg 81.902 kg 82.752 kg Microbiology Reports for the Last 24 Hours: Microbiology 03/16/25 00:56 Urine,Catheterized Urine Culture - Preliminary Gram Negative Rods Microbiology 05/30/23 10:55 Urine,Clean Catch Urine Culture - Final Constitutional Constitutional: no acute distress, average body habitus and cooperative *Routine HEENT Exam Head: Present normocephalic Eye: Present EOMI and PERRL ENT: Present mucous membranes moist *Routine Neck Exam Neck: Present supple and tenderness; Absent full ROM or lymphadenopathy Comments: Postsurgical changes to cervical spine, c-collar in place *Routine Respiratory Exam Respiratory: Present CTA bilaterally, normal respiratory effort, able to speak in complete sentences and symmetric chest movement; Absent wheezes or crackles *Routine Cardiovascular Exam Cardiovascular: Present RRR; Absent murmur *Routine Abdominal Exam Abdominal: Present soft and normoactive bowel sounds; Absent tenderness *Routine Rectal Exam Patient deferred: visual exam *Routine Exam Patient deferred: external exam *Routine Extremities Exam Extremities: Present pulses intact and normal capillary refill; Absent cyanosis, clubbing or edema *Routine Skin Exam Skin: Present intact, dry, warm and wounds (Postsurgical round on cervical spine, no erythema, edema, drainage); Absent rash *Routine Neurological Exam Neurological: Present alert, oriented X3, vision grossly intact and normal speech; Absent hearing grossly intact Comments: [facility] Results Data Completed and Pending Labs on day of discharge: Labs from last 24 hours 03/17/25 03/16/25 03/16/25 06:14 20:15 16:46 WBC RBC Hgb Hct MCV MCH MCHC RDW Plt Count MPV Neut % (Auto) Lymph % (Auto) [place] % (Auto) Eos % (Auto) Baso % (Auto) Neut # (Auto) Lymph # (Auto) [place] # (Auto) Eos # (Auto) Baso # (Auto) Sodium Potassium Chloride Carbon Dioxide Anion Gap BUN Creatinine Estimated Creat Clear Estimated GFR Est GFR ( Amer) Glucose POC Glucose 91 95 100 Calcium Total Bilirubin AST ALT Alkaline Phosphatase Total Protein Albumin Globulin Albumin/Globulin Ratio Urine Color Urine Appearance Urine pH Ur Specific [place] Urine Protein Urine Glucose (UA) Urine Ketones Urine Blood Urine Nitrate Urine Bilirubin Urine Urobilinogen Ur Leukocyte Esterase Urine WBC Urine Bacteria 03/16/25 03/16/25 03/16/25 15:25 10:41 00:56 WBC 9.7 RBC 3.92 L Hgb 11.5 L Hct 36.0 L MCV 91.8 MCH 29.3 MCHC 31.9 RDW 13.6 Plt Count 307 MPV 9.8 Neut % (Auto) 70.2 Lymph % (Auto) 19.4 [place] % (Auto) 8.4 Eos % (Auto) 1.2 Baso % (Auto) 0.6 Neut # (Auto) 6.8 Lymph # (Auto) 1.9 [place] # (Auto) 0.8 Eos # (Auto) 0.1 Baso # (Auto) 0.1 Sodium 139 Potassium 4.2 Chloride 102 Carbon Dioxide 27 Anion Gap 14.2 BUN 23 H Creatinine 1.40 H Estimated Creat Clear 41 Estimated GFR 37 L Est GFR ( Amer) 44 L Glucose 106 H POC Glucose 96 Calcium 9.3 Total Bilirubin 0.7 AST 38 H ALT 32 Alkaline Phosphatase 138 H Total Protein 5.9 L Albumin 3.5 Globulin 2.4 Albumin/Globulin Ratio 1.5 Urine Color Yellow Urine Appearance Cloudy Urine pH 6.5 Ur Specific [place] 1.015 Urine Protein Negative Urine Glucose (UA) Negative Urine Ketones Negative Urine Blood Negative Urine Nitrate Positive A Urine Bilirubin Negative Urine Urobilinogen 2.0 Ur Leukocyte Esterase 1+ A Urine WBC Tntc Urine Bacteria 4+ Preliminary micro results at discharge 03/16/25 00:56 Urine Culture - Preliminary Urine,Catheterized Gram Negative Rods DS: Diagnosis Discharge Diagnosis (1) Intractable vomiting with nausea: Status: Acute Code(s): R11.2 - Nausea with vomiting, unspecified (2) Urinary tract infection: Status: Acute Code(s): N39.0 - Urinary tract infection, site not specified Qualifiers: Hematuria presence: without hematuria Urinary tract infection type: acute cystitis Qualified Code(s): N30.00 - Acute cystitis without hematuria (3) Enteritis: Status: Acute Code(s): K52.9 - Noninfective gastroenteritis and colitis, unspecified (4) Hypothyroidism (acquired): Status: Acute Code(s): E03.9 - Hypothyroidism, unspecified (5) History of breast cancer: Status: Resolved Code(s): Z85.3 - Personal history of malignant neoplasm of breast Problem details: Right lumpectomy (6) HLD (hyperlipidemia): Status: Acute Code(s): E78.5 - Hyperlipidemia, unspecified Qualifiers: Hyperlipidemia type: unspecified Qualified Code(s): E78.5 - Hyperlipidemia, unspecified (7) HTN (hypertension): Status: Chronic Code(s): I10 - Essential (primary) hypertension Qualifiers: Hypertension type: unspecified Qualified Code(s): I10 - Essential (primary) hypertension (8) CAD (coronary artery disease): Status: Chronic Code(s): I25.10 - Atherosclerotic heart disease of [place] coronary artery without angina pectoris Qualifiers: Associated angina: without angina Coronary Disease-Associated Artery/Lesion type: [place] artery [place] vs. transplanted heart: [place] heart Qualified Code(s): I25.10 - Atherosclerotic heart disease of [place] coronary artery without angina pectoris (9) Diabetes mellitus: Status: Chronic Code(s): E11.9 - Type 2 diabetes mellitus without complications Qualifiers: Diabetes mellitus complication status: with other specified complication Diabetes mellitus group home insulin use: without group home use Diabetes mellitus type: type 2 Qualified Code(s): E11.69 - Type 2 diabetes mellitus with other specified complication Problem details: Suspected underlying diabetic neuropathy, cannot exclude sensory ataxia Meds Home Medications and Allergies Home Medications ?Medication ?Instructions ?Recorded ?Confirmed ?Type levothyroxine 112 mcg tablet 112 mcg PO DAILYDM 03/16/25 History aspirin 81 mg tablet,delayed 81 mg PO DAILY 30 days #3 0 tabs 06/05/23 03/16/25 Rx release clopidogrel 75 mg tablet 75 mg PO DAILY 30 days #90 t abs 07/04/24 03/16/25 Rx hydroxyzine pamoate 25 mg capsule 25 mg PO TIDP PRN It alberto 12/26/24 03/16/25 History spironolactone 25 mg tablet 25 mg PO DAILY #90 tabs 03/16/25 Rx (Aldactone) atorvastatin 40 mg tablet 40 mg PO HS 03/16/25 5 History bisoprolol fumarate 5 mg tablet 5 mg PO DAILY 03/16/25 03/16/25 History cholecalciferol (vitamin D3) 50 50 mcg PO DAILY 03/16/25 History mcg (2,000 unit) tablet (Vitamin D3) cyclobenzaprine 5 mg tablet 5 mg PO TID PRN Muscle [place] sm 03/16/25 03/16/25 History ferrous sulfate 325 mg (65 mg 325 mg PO MOWEFR 5 03/16/25 History iron) tablet,delayed release losartan 100 1 tab PO DAILY 03/16/2503/01 History mg-hydrochlorothiazide 25 mg tablet semaglutide 2 mg/dose (8 mg/3 mL) 2 mg SQ WEEKLY 03/1603/16/25 History subcutaneous pen injector (Ozempic) Held on 03/17/25. Instructions: Resume on 03/31/25. cefdinir 300 mg capsule 300 mg PO BID #6 caps Rx ondansetron 4 mg disintegrating 4 mg PO Q6H PRN nausea and 03/17/25 Rx tablet vomiting #14 tabs New Prescriptions to Start Prescriptions: cefdinir Latoya Chavarria ondansetron Latoya Chavarria Allergies Allergy/AdvReac Type Severity Reaction Status Date / Time niacin (NIACIN) Allergy Intermediate I-RASH Verified 02/28/25 11:19 Discharge Plan Disposition Patient Disposition: er [facility] Condition: Good Discharge Order Discharge Orders: Discharge Order (Routine); Ordered 03/17/25 Ordered By: Latoya Chavarria Follow up Plan Follow up with: Krishan Caldwell MD [Primary Care Provider, Internal Medicine] - Enter time for follow up Prescriptions/Medication Reconciliation: New ondansetron 4 mg tablet,disintegrating 4 mg PO Q6H PRN (Reason: nausea and vomiting) Qty: 14 0RF cefdinir 300 mg capsule 300 mg PO BID Qty: 6 0RF Continued levothyroxine 112 mcg tablet 112 mcg PO DAILYDM Patient Comments: TAKE 1 TABLET BY MOUTH EVERY DAY FOR 90 DAYS hydroxyzine pamoate 25 mg capsule 25 mg PO TIDP PRN (Reason: Itching) Patient Comments: TAKE 1 CAPSULE BY MOUTH THREE TIMES A DAY NEEDED FOR ITCHING clopidogrel 75 mg tablet 75 mg PO DAILY 30 Days Qty: 90 4RF spironolactone [Aldactone] 25 mg tablet 25 mg PO DAILY Qty: 90 3RF aspirin 81 mg Tablet,Delayed Release (Dr/Ec) 81 mg PO DAILY 30 Days Qty: 30 0RF ferrous sulfate 325 mg (65 mg iron) Tablet,Delayed Release (Dr/Ec) 325 mg PO MOWEFR Rx Instructions: take 1 tablet PO once a day on MON, WED, FRI cyclobenzaprine 5 mg Tablet 5 mg PO TID PRN (Reason: Muscle Spasm) cholecalciferol (vitamin D3) [Vitamin D3] 50 mcg (2,000 unit) Tablet 50 mcg PO DAILY atorvastatin 40 mg tablet 40 mg PO HS Rx Instructions: TAKE 1 TABLET BY MOUTH EVERY DAY NIGHTLY bisoprolol fumarate 5 mg tablet 5 mg PO DAILY Rx Instructions: TAKE 1 TABLET BY MOUTH EVERY DAY losartan-hydrochlorothiazide 100-25 mg tablet 1 tab PO DAILY Rx Instructions: TAKE 1 TABLET BY MOUTH EVERY DAY Held Ozempic 2 mg/dose (8 mg/3 mL) pen injector 2 mg SQ WEEKLY Hold Instructions: Resume on 03/31/25. Rx Instructions: INJECT 2MG SUBCUTANEOUSLY ONCE A WEEK Problem Reconciliation Problems Reviewed?: Yes Patient Discharge Instructions ACTIVITY: Ambulate as tolerated and Up with assistance DIET: advance to your usual diet Patient Instructions: Urinary Tract Infection, DI for Nausea in Adults, DI for Vomiting in Adults Print Language: Malay Providers Primary Care Provider: Krishan Caldwell Admdion Provider: Jerry Barreto Attending Provider: Jerry Barreto
--- NOTE | 2025-03-17 11:06 | PC.NURSE ---
PT IS TOLERATING PO INTAKE WELL WITH NO N/V SINCE I ASSUMED CARE THIS MORNING.
--- NOTE | 2025-03-20 10:53 | PC.NURSE ---
Final urine culture forwarded to the hospitalist as she was admitted.
== END 2025-03-17 14:46 ==
LOC: ER 03-16 01:55 → 2ND 03-16 01:58
PROVIDERS: Admitting Provider Internal Medicine Adolescent Medicine; Emergency Provider Student in an Organized Health Care Education/Training Program; PCP Internal Medicine Adolescent Medicine; Visit Provider Internal Medicine Adolescent Medicine
DX: K52.9 Noninfective gastroenteritis and colitis, unspecified (principal); N30.00 Acute cystitis without hematuria; E03.9 Hypothyroidism, unspecified; I10 Essential (primary) hypertension; E78.5 Hyperlipidemia, unspecified; I25.10 Atherosclerotic heart disease of native coronary artery without angina pectoris; K57.30 Diverticulosis of large intestine without perforation or abscess without bleeding; E11.9 Type 2 diabetes mellitus without complications; K80.20 Calculus of gallbladder without cholecystitis without obstruction; K76.0 Fatty (change of) liver, not elsewhere classified; F41.9 Anxiety disorder, unspecified; I25.2 Old myocardial infarction; Z88.8 Allergy status to other drugs, medicaments and biological substances; Z85.3 Personal history of malignant neoplasm of breast; Z95.5 Presence of coronary angioplasty implant and graft; Z79.890 Hormone replacement therapy; Z79.02 Long term (current) use of antithrombotics/antiplatelets; Z79.82 Long term (current) use of aspirin; Z79.899 Other long term (current) drug therapy
CPT/HCPCS: 36415; 74177; 80053; 81001; 82962; 83605; 83690; 84484; 85025; 87086; 87088; 87186; 87389; 87631; 93005; 96361; 96365; 96375; 96376; 97110; 97162; 97166; 97530; 99285; G0378; J0696; J2405; J2550; J7030; J7120; Q9967

== ENCOUNTER 2025-04-12 10:00 | Outpatient (CLI) | payer OTHER, SELFPAY ==
--- OUTSIDE RECORDS SUMMARY | 2024-09-03 16:30 | XMS_ITS ---
Author Organization [facility] Address [address] [place] [address] Care Team Providers Care Chief Cloth Finishing Range Operator Name Role Phone Krishan Caldwell Primary Care Provider Migration, Provider Unavailable Unavailable Allergies Allergen (clinical drug ingredient) Drug/Non Drug Allergy documented on EMR Reaction Allergy Type Onset Date Status niacin Niacin Unknown Drug Allergy Active REASON FOR VISIT [facility] To [facility] Conversion Encounter Medications Medication SIG (Take, Route, Frequency, Duration) Notes Start Date End Date Status Levothyroxine Sodium 112 MCG 1 tab(s) orally once a day; Duration: 90 days Active hydrOXYzine Pamoate 25 MG 1 cap(s) orally 3 times a day prn itching; Duration: 14 day(s) Active Ondansetron HCl 4 MG 1 tab(s) orally diandra ry 8 hours as needed for nausea; Duration: 5 days 04/02/2022 Active Naproxen 500 MG 1 tab(s) orally 2 times a day (as needed); Duration: 30 days Active Meclizine HCl 25 MG 1 tab(s) orally 3 times a day as needed for vertigo; Duration: 10 days 04/02/2022 Active Triamcinolone Acetonide 0.5 % 1 manuel applied topically 2 times a day prn prn 07/16/2018 Active tiZANidine HCl 4 MG 1-2 tab(s) orally every 8 hours PRN; Duration: 10 days 10/01/2021 Active Azelastine HCl 137 MCG/SPRAY 2 spray(s) intranasally 2 times a day; Duration: 30 day(s) prn Active Fluticasone Propionate 0.05 % 1 manuel applied topically 2 times a day; Duration: 14 day(s) prn 09/23/2021 Active Magnesium Oxide 400 MG 1 tab(s) orally bid; Duration: 90 days 11/10/2016 Active Vitamin B-12 1000 MCG 1 JAMES SUBLINGUALLY ONCE A DAY; Duration: 30 DAY(S) *Please review and pick correct strength-formulat ion from [employer] options. If intended option is not shown, discontinue and re-order from [employer]* 07/23/2018 Active Voltaren 1 % 2 g applied topicall y qid prn Active HAIR, SKIN, NAILS 5 MG 1 CAP(S) ORALLY ONCE A DAY *Please review for potential replacement for e-prescription and drug interaction check* Active Atorvastatin Calcium 40 MG 1 tab(s) orally once a day Active Tylenol Extra Strength 500 MG 2 tab(s) orally prn Activ e Clopidogrel Bisulfate 75 MG 1 tab(s) orally once a day Active Aspirin 81 MG 1 tab(s) orally once a day Active OZEMPIC 4 MG/3 ML 1 MG SUBCUTANEOUSLY ONCE A WEEK *Please review for potential replacement for e-prescription and drug interaction check* Active Irbesartan 75 MG 1 tab(s) orally once a day Active Losartan Potassium-HCTZ 50-12.5 MG 1 tab(s) orally once a day Active Bisoprolol Fumarate 5 MG 1 tab(s) orally once a day Active Encounters Encounter Location Date Provider Diagnosis [facility] [address] [facility] [address] [place] [address] 09/03/2024 Provider Migration Plan Of Treatment Next Appt Details Provider Name:Krishan Caldwell, 07/10/2025 10:00:00 AM, [address], [place], [address], Progress Notes * Lavinia IYER ADOB:1950 (74 yo F)Acc No.[id number]:09/03/2024 Patient: Ramakrishna Lavinia RAINEY Provider: Cindy moore Migration :1950 A ge:73 Y S ex:Female Date:09/03/2024 Address:[address] [place], [id number] Pcp:Krishan Caldwell Subjective: * Chief Complaints: * 1 . [facility] Conversion Encounter. * Medical History: * Medications: T aking Bisoprolol Fumarate 5 MG Tablet 1 tab(s) orally once a day , Taking Losartan Potassium-HCTZ 50-12.5 MG Tablet 1 tab(s) orally once a day , Taking OZEMPIC 4 MG/3 ML SOLUTION 1 MG SUBCUTANEOUSLY ONCE A WEEK , Notes to Pharmacist: *Please review for potential replacement for e-prescription and drug interaction check*, Taking Irbesartan 75 MG Tablet 1 tab(s) orally once a day , Taking Clopidogrel Bisulfate 75 MG Tablet 1 tab(s) orally once a day , Taking Aspirin 81 MG Tablet Delayed Release 1 tab(s) orally once a day , Taking Atorvastatin Calcium 40 MG Tablet 1 tab(s) orally once a day , Taking Tylenol Extra Strength 500 MG Tablet 2 tab(s) orally prn , Taking Voltaren 1 % Gel 2 g applied topically qid prn , Taking HAIR, SKIN, NAILS 5 MG CAPSULE 1 CAP(S) ORALLY ONCE A DAY , Notes to Pharmacist: *Please review for potential replacement for e-prescription and drug interaction check*, Taking Vitamin B-12 1000 MCG LOZENGE 1 JAMES SUBLINGUALLY ONCE A DAY , Notes to Pharmacist: *Please review and pick correct strength-formulation from [facility] options. If intended option is not shown, discontinue and re-order from Quick Search*, Taking Triamcinolone Acetonide 0.5 % Ointment 1 manuel applied topically 2 times a day prn , Notes to Pharmacist: prn, Taking Magnesium Oxide 400 MG Tablet 1 tab(s) orally bid , Taking Azelastine HCl 137 MCG/SPRAY Solution 2 spray(s) intranasally 2 times a day , Notes to Pharmacist: prn, Taking Fluticasone Propionate 0.05 % Cream 1 manuel applied topically 2 times a day , Notes to Pharmacist: prn, Taking tiZANidine HCl 4 MG Tablet 1-2 tab(s) orally every 8 hours PRN , Taking Meclizine HCl 25 MG Tablet 1 tab(s) orally 3 times a day as needed for vertigo , Taking Ondansetron HCl 4 MG Tablet 1 tab(s) orally every 8 hours as needed for nausea , Taking Naproxen 500 MG Tablet 1 tab(s) orally 2 times a day (as needed) , Taking Levothyroxine Sodium 112 MCG Tablet 1 tab(s) orally once a day , Taking hydrOXYzine Pamoate 25 MG Capsule 1 cap(s) orally 3 times a day prn itching * Allergies: N iacin. Objective: * Vitals: Assessment: Plan: * Treatment: * * Electronic signature of Prov ider Migration on 04/12/2025 at 10:09 AM EST Sign off status: Pending * Provider: Cindy moore Migration Date: 0 09/03/2024 Generated for Sobeida rosenberg/Jena/Wilbur on: 1 06/12/2024 10:09 AM EST
--- OUTSIDE RECORDS SUMMARY | 2025-01-16 05:45 | XMS_ITS ---
Author Organization [facility] Address [address] [facility] [address] [facility] [address] [place] [address] Care Team Providers Care Compliance Review Specialist Name Role Phone Krishan Caldwell Primary Care Provider REASON FOR VISIT med ck, thyroid Encounters Encounter Location Date Provider Diagnosis [facility] [address] [facility] [address] [facility] [address] [place] [address] 01/16/2025 Krishan Caldwell Plan Of Treatment Next Appt Details Provider Name:Krishan Caldwell, 07/10/2025 10:00:00 AM, [address] [facility] [address], [address], [place], [address], Progress Notes * Lavinia IYER ADOB:1950 (74 yo F)Acc No.[id number]:01/16/2025 Progress Notes Patient: Ramakrishna RAINEY Lavinia Quintana Provider: Min Caldwell MD :1950 A ge:74 Y S ex:Female Date:01/16/2025 Address[place] Subjective: * Chief Complaints: * 1 . Med ck, thyroid. * Medical History: Objective: * Vitals: Assessment: Plan: * Treatment: * * Electronic signature of Levy Caldwell MD FAAP on 04/12/2025 at 10:10 AM EST Sign off status: Pending * Provider: Min Caldwell MD Date: 0 01/16/2025 Generated for Sobeida rosenberg/Jena/Wilbur on: 1 06/12/2024 10:10 AM EST
--- OUTSIDE RECORDS SUMMARY | 2025-02-15 04:30 | XMS_ITS ---
Author Organization [facility] Address [address] [place] [address] Care Team Providers Care Mail Manager Name Role Phone Levy Caldwellhen Primary Care Provider Allergies Allergen (clinical drug ingredient) Drug/Non Drug Allergy documented on EMR Reaction Allergy Type Onset Date Status niacin Niacin Unknown Drug Allergy Active REASON FOR VISIT 3 Month F/U Medications Medication SIG (Take, Route, Frequency, Duration) Notes Start Date End Date Status Azelastine HCl 137 MCG/SPRAY 2 spray(s) intranasally 2 times a day; Duration: 30 day(s) prn Active Voltaren 1 % 2 g applied topicall y qid prn Active Magnesium Oxide 400 MG 1 tab(s) orally b id; Duration: 90 days 11/10/2016 Active HAIR, SKIN, NAILS 5 MG 1 CAP(S) ORALLY ONCE A DAY Active Vitamin B-12 1000 MCG 1 JAMES SUBLINGUALLY ONCE A DAY; Duration: 30 DAY(S) 07/23/2018 Active Irbesartan 75 MG 1 tab(s) orally once a day Active Clopidogrel Bisulfate 75 MG 1 tab(s) orally once a day A ctive Tylenol Extra Strength 500 MG 2 tab(s) orally prn Active Aspirin 81 MG 1 tab(s) orally once a day Active Atorvastatin Calcium 40 MG 1 tab(s) orally once a day Active Losartan Potassium-HCTZ 50-12.5 MG 1 tab(s) orally once a day A ctive OZEMPIC 4 MG/3 ML 1 MG SUBCUTANEOUSLY ONCE A WEEK Active Meclizine HCl 25 MG 1 tablet as needed Orally every 12 hrs; Duration: 10 days As needed 11/14/2024 Active Levothyroxine Sodium 112 MCG 1 tab(s) orally once a day; Duration: 90 days Active Bisoprolol Fumarate 5 MG 1 tab(s) orally once a day Active Ondansetron HCl 4 MG 1 tab(s) orally diandra ry 8 hours as needed for nausea; Duration: 5 days 04/02/2022 Active tiZANidine HCl 4 MG 1-2 tab(s) orally ev michael 8 hours PRN; Duration: 10 days 10/01/2021 Active hydrOXYzine Pamoate 25 MG 1 cap(s) orall y 3 times a day prn itching; Duration: 14 day(s) Active Problems Problem Type SNOMED Code ICD Code Onset Dates Problem Status W/U Status Risk Notes Problem Cervical radiculopathy (34401011) Cervical neuralgia (M54.12) Active confirmed Vital Signs Temperature 97.7 degrees Fahrenheit 02/16/20 25 Blood pressure systolic 110 mm Hg 02/16/20 25 Blood pressure diastolic 64 mm Hg 025 Heart Rate 78 /min 02/15/2025 Height 5 ft 6.75 in in 02/15/2025 Weight 169.6 lbs 02/15/2025 BMI 26.76 kg/m2 02/15/2025 Encounters Encounter Location Date Provider Diagnosis formerly [facility] ANY [address] [place] [address] 02/15/2025 Krishan Paulette Hypertension, essent ial I10 ; Acquired hypothyroidism E03.9 ; Type 2 diabetes mellitus with other circulatory complications E11.59 ; Chronic kidney disease, stage 3b N18.32 and Cervical neuralgia M54.12 Assessments Encounter Date Diagnosis (ICD Code) Assessment Notes Treatment Notes Treatment Clinical Notes Section Notes 02/15/2025 Hypertension, essential (ICD-10 - I10) Blood pressure under good control. No changes in plan 02/15/2025 Acquired hypothyroidism (ICD-10 - E03.9) Reviewed thyroid labs once again with patient. Quite frankly it was frustrating that patient had to go to an unnecessary endocrinology appointment but no changes in this plan at this point 02/15/2025 Type 2 diabetes mellitus with other circulatory complications (ICD-10 - E11.59) A1c has been well-controlled. No change in plans 02/15/2025 Chronic kidney disease, stage 3b (ICD-10 - N18.32) Recent creatinines have been stable. No changes. Patient's volume status appears good. I will follow-up with patient in 2 months, hopefully after helpful neurosurgery 02/15/2025 Cervical neuralgia (ICD-10 - M54.12) Patient scheduled for neurosurgery in first week of March. Will follow-up afterwards. Plan Of Treatment Treatment Notes Assessment Notes Hypertension, essential Blood pressure u nder good control. No changes in plan Acquired hypothyroidism Reviewed thyroid labs once again with patient. Quite frankly it was frustrating that patient had to go to an unnecessary endocrinology appointment but no changes in this plan at this point Type 2 diabetes mellitus wit h other circulatory complications A1c has been well-controlled. No change in plans Chronic kidney disease, stage 3b Recent creatinines have been stable. No changes. Patient's volume status appears good. I will follow-up with patient in 2 months, hopefully after helpful neurosurgery Cervical neuralgia Patient scheduled for neurosurgery in first week of March. Will follow-up afterwards. Next Appt Details Follow Up: 2 Months, Reason: Provider Name:Krishan Caldwell, 07/10/2025 10:00:00 AM, [address] [address], [address], [place], [address], Progress Notes * Lavinia IYER ADOB:1950 (74 yo F)Acc No.[id number]:02/15/2025 Progress Notes Patient: Lavinia FERRELL A Provider: Min Caldwell MD :1950 A ge:74 Y S ex:Female Date:02/15/2025 Address:[address] [place] [address] [place], [id number] Subjective: * Chief Complaints: * 1 . 3 Month F/U. * HPI: g en: Jodi presents for 3-month follow-up. Please see prior phone encounters about her family's concern about her thyroid levels. Briefly, cardiology-for some reason, ordered thyroid labs and noted that her TSH was low. They instructed the family that this needed to be addressed. The family called and I instructed them that her T4 been normal and I would be happy to go over the reason that her TSH was suppressed which mainly was her biotin use. Instead, cardiology referred her to endocrinology. Endocrinology told her the same thing. Her thyroid dose remains the same and her T4 levels remain normal. In the interim she has discovered that she has severe neck pain and has had severe cervical stenosis. She has been referred to neurosurgery and has a procedure scheduled at [facility] first week of March for cervical disc/laminectomy procedure. No recent falls. Pain control seems adequate. Family is helping her get around. * Medical History: H ypercholestrolemia, Hypertension, Hypothyroidism, [...] 1 MG SUBCUTANEOUSLY ONCE A WEEK , Taking Irbesartan 75 MG Tablet 1 tab(s) [...] 1 CAP(S) ORALLY ONCE A DAY , Taking Vitamin B-12 1000 MCG LOZENGE 1 JAMES SUBLINGUALLY ONCE A DAY , Taking Magnesium Oxide 400 MG Tablet 1 tab(s) orally bid , Taking Azelastine HCl 137 MCG/SPRAY Solution 2 spray(s) intranasally 2 times a day , Notes to Pharmacist: prn, Taking tiZANidine HCl 4 MG Tablet 1-2 tab(s) orally every 8 hours PRN , Taking Ondansetron HCl 4 MG Tablet 1 tab(s) orally every 8 hours as needed for nausea , Taking hydrOXYzine Pamoate 25 MG Capsule 1 cap(s) orally 3 times a day prn itching , Taking Levothyroxine Sodium 112 MCG Tablet 1 tab(s) orally once a day , Taking Meclizine HCl 25 MG Tablet 1 tablet as needed Orally every 12 hrs As needed, Discontinued Meclizine HCl 25 MG Tablet 1 tab(s) orally 3 times a day as needed for vertigo , Medication List reviewed and reconciled with the patient * Allergies: N iacin. Objective: * Vitals: N urse: jl, Pain: 10, Temp: 97.7, RR: 18, HR: 78, BP: 110/64, Ht: 5 ft 6.75 in, Wt: 169.6, BMI:26.76. * Examination: G eneral Examination: General P leasant and Cooperative, NAD on RA,. Heart: R egular Rate and Rhythm, no murmur, rubs or gallops. Lungs: L CTAB, No wheezes, crackles or rhonchi, Good air movement,. Abdomen: S oft, NTND, BSNA, No organomegaly or peritoneal signs.. Psych N ormal Mood/Affect. Assessment: * Assessment: 1. H ypertension, essential - I10 (Primary) 2 . A cquired hypothyroidism - E03.9 3 . T ype 2 diabetes mellitus with other circulatory complications - E11.59 4 . C hronic kidney disease, stage 3b - N18.32 5 . C ervical neuralgia - M54.12 Plan: * Treatment: 2. A cquired hypothyroidism Notes: Reviewed thyroid labs once again with patient. Quite frankly it was frustrating that patient had to go to an unnecessary endocrinology appointment but no changes in this plan at this point 3. T ype 2 diabetes mellitus with other circulatory complications Notes: A1c has been well-controlled. No change in plans 4. C hronic kidney disease, stage 3b Notes: Recent creatinines have been stable. No changes. Patient's volume status appears good. I will follow-up with patient in 2 months, hopefully after helpful neurosurgery 5. C ervical neuralgia Notes: Patient scheduled for neurosurgery in first week of March. Will follow-up afterwards. * Follow Up: 2 Months * * Sign off status: Completed true * Provider: Min Caldwell MD Date: 0 02/15/2025 Generated for Sobeida rosenberg/Jena/Rosendosmitting on: 1 06/12/2024 10:07 AM EST History and Physical Notes * HPI (History of Present Illness) Category Sub-Category Detail Notes Category Not es gen Jodi presents for 3-month follow-up. Please see prior phone encounters about her family's concern about her thyroid levels. Briefly, cardiology-for some reason, ordered thyroid labs and noted that her TSH was low. They instructed the family that this needed to be addressed. The family called and I instructed them that her T4 been normal and I would be happy to go over the reason that her TSH was suppressed which mainly was her biotin use. Instead, cardiology referred her to endocrinology. Endocrinology told her the same thing. Her thyroid dose remains the same and her T4 levels remain normal. In the interim she has discovered that she has severe neck pain and has had severe cervical stenosis. She has been referred to neurosurgery and has a procedure scheduled at [facility] first week of March for cervical disc/laminectomy procedure. No recent falls. Pain control seems adequate. Family is helping her get around. Examination Category Sub-Category Detail Notes Category Not es General Examination Heart: Regular Rate and Rhythm, no murmur, rubs or gallops Lungs: LCTAB, No wheezes, c rackles or rhonchi, Good air movement, Abdomen: Soft, NTND, BSNA, No organomegaly or peritoneal signs. General Pleasant and Coopera tive, NAD on RA, Psych Normal Mood/Affect
--- OUTSIDE RECORDS SUMMARY | 2025-02-24 12:58 | XMS_ITS | Encounter Summary ---
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 Role Phone Unavailable Primary Care Provider Unavailabl e Reason for Visit * Auth/Cert (Routine) Specialty Diagnoses / Procedures Referred By Contac t Referred To Contact Diagnoses Disease of spinal cord (HCC) SEE PRIMARY DX Procedures MS ARTHRD PST/PSTLAT TQ 1NTRSPC CRV BELW C2 SEGMENT MS ARTHRODESIS PST/PSTLAT TQ 1NTRSPC EA ADDL NTRSPC LAMINECTOMY, SPINE, CERVICAL, POSTERIOR APPROACH, WITH FUSION, PRONE POSITION [facility] Operating Room [address] [place] [address] Phone: tel: fax: [facility] Operating Room [address] [place] [address] Phone: tel: fax: Referral ID Status Reason Start Date Expiration Date Visits Re quested Visits Authorized [id number] 1 1 Encounter Details Date Type Department Care Team (Latest Contact Info) Description 02/24/2025 1:58 PM EDT - 02/24/2025 11:59 PM EDT Hospital Encounter [facility] Preadmission Testing [address] [place] [address] Preop testing (Primary Dx); Cervical myelopathy (HCC); History of breast cancer; Hypertension; Hypothyroidism; History of [place] (myocardial infarction); Coronary atherosclerosis of [place]k coronary artery; Diabetes mellitus, type II (HCC); CKD (chronic kidney disease), stage III (HCC); Preoperative evaluation to rule out surgical contraindication; Pre-op testing Discharge Disposition: Home or Self Care Social History Tobacco Use Types Packs/Day Years Used Date Smoking Tobacco: Never Smokeless Tobacco: Never Tobacco Cessation:Counseling Given: Not Answered Alcohol Use Standard Drinks/Week Comments Never 0 (1 standard drink = 0.6 oz pur e alcohol) Comments No Sex and Gender Information Value Date Recorded Sex Assigned at Not on file Legal Sex Female 8:54 AM CDT Gender Identity Not on file Sexual Orientation Not on file documented as of this encounter Last Filed Vital Signs Vital Sign Reading Time Taken Comments Blood Pressure 157/74 02/24/2025 2:34 PM EDT Pulse 64 02/24/2025 2:34 PM EDT Temperature 36.7 C (98.1 F) 02/24/2025 2:34 PM EDT Respiratory Rate 18 02/24/2025 2:34 PM EDT Oxygen Saturation 98% 02/24/2025 2:34 PM EDT Inhaled Oxygen Concentration - - Weight 75.3 kg (166 lb) 02/24/2025 2:34 PM EDT Height 170.2 cm (5' 7 ) 02/24/2025 2:34 PM EDT Body Mass Index 26 02/24/2025 2:34 PM EDT documented in this encounter Discharge Instructions * Discharge Instructions* Rosendo Willoughby RN - 02/23/2025 3:41 PM EDT Please arrive to the hospital on: 03-02-2025 Please arrive by: To be notified Day of Surgery Instructions: Please arrive at the hospital on time. If you are unable to arrive at your designated time, call the Outpatient Surgery Department at [phone] or ext [phone] Arrive at the hospital at your designated time, and park in the main visitor parking area. GO TO ADMITTING TO REGISTER FOR SURGERY. You will be notified by outpatient surgery staff, the afternoon before surgery, regarding the time of your arrival the morning of surgery. If you have any questions, please call the above phone number. If you are going home the same day as your surgery, you MUST have a responsible adult over the age of [address] you home, and REMAIN with you 24 hours after surgery. PLEASE NOTE: If you do not have a responsible adult with you the day of surgery, your surgery may be cancelled. DO NOT EAT OR DRINK ANYTHING AFTER MIDNIGHT: the night before your surgery unless otherwise indicated. This includes water, coffee, gum, mints, tobacco, etc. You may brush your teeth the morning of surgery. Try not to smoke for 2 weeks prior to surgery. DO NOT chew tobacco or use any form of tobacco 24 hours before surgery. DO NOT drink alcohol or take illicit drugs 24 hours before surgery. On the day of surgery, please take only the medications you are instructed to take. Please bring inhalers with you on the day of surgery. Please DO NOT take any NSAIDS (Ibuprofen, Blood thinners, Aspirin, Motrin, Aleve, Celebrex, etc) unless approved by your physician. DO NOT wear any jewelry (including rings and body piercings), hair pins, makeup or nail nigerian on fingers or toes on the day of surgery. If you wear contact lenses, please bring a case and solution to put them in. If you wear glasses orhearing aids, please bring a case to put those in. DIABETICS: please check your blood sugar the morning of surgery. Follow instructions given to you by the nurse. If your blood sugar is high, do what you would normally do. If you are admitted, please leave belongings in the car and have family bring them to your room later. Leave valuables such as money, credit cards or jewelry at home. Please contact your surgeon for any physical changes such as cold, flu, fever, or if you're unable to come for surgery. If you suspect you may be , please notify your physician. Bring a copy of any healthcare directives, and legal documents such as a living will, healthcare surrogate, power of clinical researcher, or legal guardianship verification to the hospital on the day of surgery. GENERAL INSTRUCTIONS FOR POST OP CARE: -For the next 24 hours: Have a responsible adult (over the age of 18) with you for your safety and protection Do NOT drive, work around machines, or use any type of power equipment Do NOT smoke Do NOT drink alcohol or while on pain medication Do NOT make any important decisions, or sign any important paperwork -After surgery, you may have a sore throat, muscle aches, dizziness, and feel tired or sleepy - You may resume medications unless directed not to by your doctor. - Your first meal after surgery should be light, and gradually increase your diet to what is normalfor you. In case of nausea, avoid solid food and take only clear liquids as tolerated. - After surgery, please plan to spend a quiet, relaxed evening at home. Resume your normal activityas prescribed by your doctor, and as tolerated. * Attachments The following attachments cannot be sent through Care Everywhere. * Cervical Fusion (Ugandan) * General Anesthesia Adult (Ugandan) documented in this encounter Medications at Time of Discharge aspirin 81 MG EC tablet Take 1 tablet (81 mg total) by mouth daily. atorvastatin (LIPITOR) 40 MG tablet Take 1 tablet (40 mg total) by mouth nightly. azelastine (ASTELIN) 137 mcg (0.1 %) nasal spray Administer 1 spray into each nostril as needed. bisoprolol (ZEBETA) 5 MG tablet Take 1 tablet (5 mg total) by mouth daily. hydrOXYzine pamoate (VISTARIL) 25 MG capsule Take 1 capsule (25 mg total) by mouth nightly. levothyroxine (SYNTHROID) 112 MCG tablet Take 1 tablet (112 mcg total) by mouth Daily (0600). losartan-hydroCH LOROthiazide (HYZAAR) 100-25 mg per tablet Take 1 tablet by mouth daily. meclizine (ANTIVERT) 25 mg tablet Take 1 tablet (25 mg total) by mouth as needed. 11/14/2024 ondansetron (ZOFRAN) 4 MG tablet Take 1 tablet (4 mg total) by mouth every 8 (eight) hours as needed. 02/22/2025 Ozempic 2 mg/dose (8 mg/3 mL) pnij Inject 2 mg into the shoulder, thigh, or buttocks every 7 days Thursday02/22/2025. 02/24/2025 Plavix 75 mg tablet Take 1 tablet (75 mg total) by mouth daily. spironolactone (ALDACTONE) 25 MG tablet Take 1 tablet (25 mg total) by mouth daily. 02/01/2025 cyclobenzaprine (FLEXERIL) 5 MG tablet Take 1 tablet (5 mg total) by mouth 3 (three) times daily as needed for muscle spasms for up to 10 days. 30 tablet 03/04/2025 docusate sodium (COLACE) 100 MG capsule Take 1 capsule (100 mg total) by mouth 2 (two) times daily for 10 days. 10 capsule 03/04/2025 oxyCODONE-acetam inophen (PERCOCET) 5-325 mg per tablet Take 1 tablet by mouth every 6 (six) hours as needed for pain for up to 10 days Look-alike/Yuliya nd-alike medication. Max Daily Amount: 4 tablets 20 tablet 03/04/2025 acetaminophen (Tylenol Extra Strength) 500 MG tablet Take 2 tablets (1,000 mg total) by mouth daily. losartan-hydroch lorothiazide (HYZAAR) 50-12.5 mg per tablet Take 1 tablet by mouth daily. documented as of this encounter H&P Notes * Lynsey Bridges PA-C - 02/24/2025 2:00 PM EDTSummary: PAT CC: Neck pain, RUE numbness History Of Present Illness Lavinia Iyer is a 74 y.o. female presenting for perioperative clearance for C3- 5 posterior cervical fusion and other levels TBD using A-line and neuromonitoring with Dr. Carvajal in setting of cervical myelopathy. Pt has been having neck pain. Her right arm feels numb. Her right leg feels heavy. PerNS office note : MRI from 01/27/25 with severe cervical stenosis worse at C3-4 as well as C4-5 with cord compression secondary to annular bulging and ligamentous hypertrophy. Patient has been conservatively managed, but continues to have pain which is negatively impacting activities of daily living. Pertinent history: CAD s/p 5 stents -follows with [facility] Cardiology Services Pertinent negatives: no hx of PE or DVT. No personal or family hx of malignant hyperthermia. No difficult intubation. Past Medical History She has a past medical history of Arthritis, Cancer (HCC), Coronary artery disease, Diabetes mellitus (HCC), Hypertension, PONV (postoperative nausea and vomiting), and Thyroid disease. Surgical History She has a past surgical history that includes Breast surgery (Right); Cardiac surgery (2023); Colonoscopy; Cataract extraction (Bilateral); Tubal ligation; and Dilation and curettage of uterus. Social History She reports that she has never smoked. She has never used smokeless tobacco. She reports that she does not drink alcohol and does not use drugs. Family History Her family history is not on file. Allergies Niacin Medications Current Outpatient Medications Medication Instructions acetaminophen (TYLENOL EXTRA STRENGTH) 1,000 mg, oral, Daily aspirin 81 mg, oral, Daily atorvastatin (LIPITOR) 40 mg, oral, Every Night azelastine (ASTELIN) 137 mcg (0.1 %) nasal spray 1 spray, each nostril, As needed bisoprolol (ZEBETA) 5 mg, oral, Daily hydrOXYzine pamoate (VISTARIL) 25 mg, oral, Every Night levothyroxine (SYNTHROID) 112 mcg, oral, Daily (0600) losartan-hydrochlorothiazide (HYZAAR) 50-12.5 mg per tablet 1 tablet, oral, Daily meclizine (ANTIVERT) 25 mg, As needed ondansetron (ZOFRAN) 4 mg, Every 8 hours PRN Ozempic 2 mg, Every 7 days Plavix 75 mg, oral, Daily spironolactone (ALDACTONE) 25 mg, Daily Review of Systems 14 point ROS completed and non-contributory except as listed above Physical Exam Blood pressure (!) 157/74, pulse 64, temperature 98.1 ??F (36.7 ??C), temperature source Tympanic, resp. rate 18, height 1.702 m (5' 7 ), weight 75.3 kg (166 lb), SpO2 98%. GEN: Alert, awake, NAD HEENT: NCAT, no icterus, no thrush, nares patent, CV: S1S2, no murmur. No LE edema Resp: CTAB, NL Abd: Soft, NT, ND +BS Skin: no rashes on inspection and palpation. Ext: No LE edema. No joint edema, erythema. Neuro: A&O x 3, CN grossly intact Diagnostic Results Hospital Outpatient Visit on 02/24/2025 Component Date Value Ref Range Status WBC 02/24/2025 5.9 4.0 - 10.0 K/??L Final RBC 02/24/2025 3.90 (L) 3.93 - 5.22 M/??L Final Hemoglobin 02/24/2025 11.7 11.2 - 15.7 GM/DL Final Hematocrit 02/24/2025 35.9 34.1 - 44.9 % Final MCV 02/24/2025 92 79 - 95 fL Final MCH 02/24/2025 30.0 25.6 - 32.2 pg Final MCHC 02/24/2025 32.6 32.2 - 35.5 GM/DL Final RDW 02/24/2025 13.8 11.7 - 14.4 % Final Platelets 02/24/2025 162 140 - 375 K/CU MM Final MPV 02/24/2025 11.2 9.4 - 12.3 fL Final Sodium 02/24/2025 145 136 - 145 meq/L Final Potassium 02/24/2025 4.5 3.4 - 5.1 meq/L Final CO2 02/24/2025 27 22 - 29 meq/L Final Chloride 02/24/2025 109 98 - 112 meq/L Final Glucose 02/24/2025 96 82 - 115 mg/dL Final BUN 02/24/2025 29.4 (H) 9.8 - 20.1 mg/dL Final Creatinine 02/24/2025 1.95 (H) 0.57 - 1.11 mg/dL Final BUN/Creatinine 02/24/2025 15 8 - 20 Final Calcium 02/24/2025 9.9 8.4 - 10.2 mg/dL Final Anion Gap 02/24/2025 14 (H) 4 - 12 Final eGFR (mL/min/1.73m2) 02/24/2025 26 (L) >=60 mL/min/1.73m2 Final Osmolality Calc 02/24/2025 294.5 mOsm/kg Final RETYPE 02/24/2025 O Negative Final Color, UA 02/24/2025 Light Yellow Final Clarity, UA 02/24/2025 Clear Clear Final Specific [place], UA 02/24/2025 1.014 1.005 - 1.030 Final pH, UA 02/24/2025 5.0 (L) 6.0 - 8.0 Final Leukocytes, UA 02/24/2025 Negative Negative Final Nitrite, UA 02/24/2025 Negative Negative Final Protein, UA 02/24/2025 Negative Negative Final Glucose, UA 02/24/2025 Normal Normal Final Ketones, UA 02/24/2025 Negative Negative Final Urobilinogen, UA 02/24/2025 Normal Normal Final Bilirubin, UA 02/24/2025 Negative Negative Final Blood, UA 02/24/2025 Negative Negative Final Specimen Source 02/24/2025 Urine, Clean Catch Final Hemoglobin A1C 02/24/2025 5.6 4.0 - 5.6 % Final eAVG Glucose 02/24/2025 114.02 70 - 126 mg/dL Final No image results found. Echo 12/20/24 EF 55%, aortic valve mildly thickened, mild aortic regurg, trace MR/TR/MS; mild AI, normal BiV systolic fxn Stress test 12/20/24 unremarkable Assessment & Plan Principal Problem: Preoperative evaluation to rule out surgical contraindication Active Problems: Cervical myelopathy (HCC) History of breast cancer Hypertension Hypothyroidism History of [place] (myocardial infarction) Coronary atherosclerosis of [place]k coronary artery Diabetes mellitus, type II (HCC) CKD (chronic kidney disease), stage III (HCC) Preop evaluation: Patient underwent preoperative laboratory workup and diagnostic studies as above.Utilized the following risk calculators: Sleep apnea risk assessment via Epic: at risk. EKG 01/23/25- NSR, HR 61 from [facility] Cardiology. Continue home meds per PCP recommendations. Medication preop holds reviewed with pt by nursing. CAD -Cardiac clearance given by Ar Chavarria PA-C - [facility] Cardiology. Recommended holding ASA 5 days prior to surgery and Plavix 7 days prior to surgery. Anesthesia to evaluate pt today. Proceed with surgery as scheduled on 03/02/[address] Carvajal. documented in this encounter Plan of Treatment Not on file documented as of this encounter Procedures Procedure Name Priority Date/Time Associated Diagnosis Comments HEMOGLOBIN A1C STAT 02/24/2025 3:04 PM EDT Preop testing CBC HEMOGRAM (SJ-BKR) STAT 02/24/2025 3:03 PM EDT Preop testing ABO/RH CONFIRMATION/RETYPE ([place] BKR) STAT 02/24/2025 3:03 PM EDT Preop testing URINALYSIS WITHOUT MICROSCOPIC Routine 02/24/2025 3:03 PM EDT Preop testing BASIC METABOLIC PANEL STAT 02/24/2025 3:03 PM EDT Preop testing documented in this encounter Results * Hemoglobin A1c (02/24/2025 3:04 PM EDT) Hemoglobin A1C 5.6 4.0 - 5.6 % 02/24/2025 3:43 PM EDT [facility] Comment: Hemoglobin A1C levels are related to mean glucose during the preceding 2-3 months. Less than 7% demonstrates glycemic control in diabetic patients. Hemoglobin AlC % Suggested Diagnosis > or = 6.5 Diabetic 5.7 - 6.4 Prediabetic <5.7 Non-diabetic eAVG Glucose 114.02 70 - 126 mg/dL 02/24/2025 3:43 PM EDT [facility] Blood Venipuncture / Unknown 02/24/2025 3:04 PM EDT 02/24/2025 3:25 PM EDT us De Fox MD LAB BLOOD ORDERABLES Final Res ult [facility] [address] [place] [address], [facility] [phone] * ABO/RH CONFIRMATION/RETYPE (02/24/2025 3:03 PM EDT) RETYPE O Negative 02/24/2025 3:23 PM EDT [facility] ([place]) Blood Venipuncture / Unknown 02/24/2025 3:03 PM EDT 02/24/2025 3:23 PM EDT us De Fox MD [facility] TEST ORDERABLES Final Result [facility] ([place]) [address] [facility] [place] [address], [facility] [phone] * (ABNORMAL) Urinalysis without Microscopic (02/24/2025 3:03 PM EDT) Color, UA Light Yellow 02/24/2025 3:39 PM EDT [facility] Clarity, UA Clear Clear 02/24/2025 3:39 PM EDT [facility] Specific [place], UA 1.014 1.005 - 1.030 02/24/2025 3:39 PM EDT [facility] pH, UA 5.0(L) 6.0 - 8.0 02/24/2025 3:39 PM EDT [facility] Leukocytes, UA Negative Negative 02/24/2025 3:39 PM EDT [facility] Nitrite, UA Negative Negative 02/24/2025 3:39 PM EDT [facility] Protein, UA Negative Negative 02/24/2025 3:39 PM EDT [facility] Glucose, UA Normal Normal 02/24/2025 3:39 PM EDT [facility] Ketones, UA Negative Negative 02/24/2025 3:39 PM EDT [facility] Urobilinogen, UA Normal Normal 02/24/2025 3:39 PM EDT [facility] Bilirubin, UA Negative Negative 02/24/2025 3:39 PM EDT [facility] Blood, UA Negative Negative 02/24/2025 3:39 PM EDT [facility] Specimen Source Urine, Clean Catch 02/24/2025 3:39 PM EDT [facility] Urine URINE SPECIMEN COLLECTION, CLEAN CATCH / Unknown 02/24/2025 3:03 PM EDT 02/24/2025 3:26 PM EDT us Julio César Carvajal MD URINE ORDERABLES Final Result [facility] [address] [phone] * (ABNORMAL) Basic Metabolic Panel (02/24/2025 3:03 PM EDT) Sodium 145 136 - 145 meq/L 02/24/2025 4:03 PM EDT [facility] Potassium 4.5 3.4 - 5.1 meq/L 02/24/2025 4:03 PM EDT [facility] CO2 27 22 - 29 meq/L 02/24/2025 4:03 PM EDT [facility] Chloride 109 98 - 112 meq/L 02/24/2025 4:03 PM EDT [facility] Glucose 96 82 - 115 mg/dL 02/24/2025 4:03 PM EDT [facility] BUN 29.4(H) 9.8 - 20.1 mg/dL 02/24/2025 4:03 PM EDT [facility] Creatinine 1.95(H) 0.57 - 1.11 mg/dL 02/24/2025 4:03 PM T [facility] BUN/Creatinine 15 8 - 20 02/24/2025 4:03 PM EDT [facility] Calcium 9.9 8.4 - 10.2 mg/dL 02/24/2025 4:03 PM EDT [facility] Anion Gap 14(H) 4 - 12 02/24/2025 4:03 PM T [facility] eGFR (mL/min/1.73m2) 26(L) >=60 mL/min/1.7 3m2 02/24/2025 4:03 PM EDT [facility] Comment:ESTIMATED GFR IS NOT ACCURATE CREATININE CLEARANCE IN PREDICTING GLOMERULAR FILTRATION RATE. ESTIMATED GFR IS NOT APPLICABLE FOR DIALYSIS PATIENTS. Osmolality Calc 294.5 mOsm/kg 4:03 PM EDT [facility] Blood Venipuncture / Unknown 02/24/2025 3:03 PM EDT 02/24/2025 3:26 PM EDT us Julio César Carvajal MD LAB BLOOD ORDERABLES Final Re sult [facility] [address] [phone] * (ABNORMAL) CBC - Hemogram (SJ-BKR) (02/24/2025 3:03 PM EDT) WBC 5.9 4.0 - 10.0 K/ L 02/24/2025 3:29 PM EDT [facility] RBC 3.90(L) 3.93 - 5.22 M/ L 02/24/2025 3:29 PM EDT [facility] Hemoglobin 11.7 11.2 - 15.7 GM/DL 02/24/2025 3:29 PM EDT [facility] Hematocrit 35.9 34.1 - 44.9 % 02/24/2025 3:29 PM EDT [facility] MCV 92 79 - 95 fL 02/24/2025 3:29 PM EDT [facility] MCH 30.0 25.6 - 32.2 pg 02/24/2025 3:29 PM EDT [facility] MCHC 32.6 32.2 - 35.5 GM/DL 02/24/2025 3:29 PM EDT [facility] RDW 13.8 11.7 - 14.4 % 02/24/2025 3:29 PM EDT [facility] Platelets 162 140 - 375 K/CU MM 02/24/2025 3:29 PM EDT [facility] MPV 11.2 9.4 - 12.3 fL 02/24/2025 3:29 PM EDT [facility] Blood Venipuncture / Unknown 02/24/2025 3:03 PM EDT 02/24/2025 3:23 PM EDT us Julio César Carvajal MD LAB BLOOD ORDERABLES Final Re sult [facility] [address] [phone] documented in this encounter Visit Diagnoses Diagnosis Preoperative evaluation to rule out surgical contraindication- Primary Cervical myelopathy (HCC) Cervical spondylosis with myelopathy History of breast cancer Personal history of malignant neoplasm of breast Hypertension Unspecified essential hypertension Hypothyroidism Unspecified hypothyroidism History of [place] (myocardial infarction) Old myocardial infarction Coronary atherosclerosis of [place] coronary artery Diabetes mellitus, type II (HCC) Type II or unspecified type diabetes mellitus without mention of complication, not stated as uncontrolled CKD (chronic kidney disease), stage III (HCC) Chronic kidney disease, Stage III (moderate) Preoperative evaluation to rule out surgical contraindication Pre-op testing Unspecified pre-operative examination Preop testing Unspecified pre-operative examination Cervical myelopathy (HCC) Cervical spondylosis with myelopathy Hypertension Unspecified essential hypertension Hypothyroidism Unspecified hypothyroidism History of breast cancer Personal history of malignant neoplasm of breast History of [place] (myocardial infarction) Old myocardial infarction Diabetes mellitus, type II (HCC) Type II or unspecified type diabetes mellitus without mention of complication, not stated as uncontrolled CKD (chronic kidney disease), stage III (HCC) Chronic kidney disease, Stage III (moderate) Coronary atherosclerosis of y[place]k coronary artery documented in this encounter Administered Medications Inactive Administered Medications - up to 3 most recent administrations Medication Order MAR Action Action Date Dose Rate Site mupirocin (BACTROBAN) 2 % ointment intraNASAL, Once, On Thu02/24/25 at 1500, For 1 dose, Specific area to apply: TO BILATERAL NARES NIGHT PRIOR TO SURGERY , Pre-Admission TestingIndications:Preop testing Given 02/24/2025 3:35 PM EDT documented in this encounter
--- OUTSIDE RECORDS SUMMARY | 2025-03-02 04:59 | XMS_ITS | Encounter Summary ---
Author Organization [employer] ([place], [place], [place], [place], [place]) Address [address] [place] [address] Care Team Providers Care Supervisor Phosphoric Acid Name Role Phone Krishan Caldwell MD Primary Care Provider + [phone] Reason for Visit * Auth/Cert (Routine) Specialty Diagnoses / Procedures Referred By Contac t Referred To Contact Diagnoses Disease of spinal cord (HCC) SEE PRIMARY DX Procedures MS ARTHRD PST/PSTLAT TQ 1NTRSPC CRV BELW C2 SEGMENT MS ARTHRODESIS PST/PSTLAT TQ 1NTRSPC EA ADDL NTRSPC LAMINECTOMY, SPINE, CERVICAL, POSTERIOR APPROACH, WITH FUSION, PRONE POSITION [facility] Operating Room [address] [place] [address] Phone: tel: fax: [facility] Operating Room [address] [place] [address] Phone: tel: fax: Referral ID Status Reason Start Date Expiration Date Visits Re quested Visits Authorized [id number] 1 Encounter Details Date Type Department Care Team (Latest Contact Info) Description 03/02/2025 5:59 AM EDT - 03/05/2025 12:45 PM EDT Hospital Encounter [facility]opedic [facility] Neurosurgery [address] [place] [address] Julio César Carvajal MD [address] [place] [address] Discharge Disposition: Hospice/Medical Facility Social History Tobacco Use Types Packs/Day Years Used Date Smoking Tobacco: Never Smokeless Tobacco: Never Alcohol Use Standard Drinks/Week Comments Never 0 (1 standard drink = 0.6 oz pur e alcohol) Utilities Answer Date Recorded In the past 12 months, has t he electric, gas, oil, or water company threatened to shut off services in your home? No 03/02/2025 Interpersonal Safety Answer Date Record ed How often does anyone, abiel landrum family and friends, physically hurt you? Never 03/02/2025 How often does anyone, abiel landrum family and friends, insult or talk down to you? Never 03/02/2025 How often does anyone, abiel landrum family and friends, threaten you with harm? Never 03/02/2025 How often does anyone, abiel landrum family and friends, scream or curse at you? Never 03/02/2025 Housing Stability Answer Date Recorded What is your living situation today? I have a [facility] place to live 03/02/[address] you li ve. Do you have problems with any of the following? None of the above 03/02/2025 Food Insecurity Answer Date Recorded Within the past 12 months, y ou worried that your food would run out before you got money to buy more. Never true 03/02/2025 Within the past 12 months, toya he food you bought just didn't last and you didn't have money to get more. Never true 03/02/2025 Transportation Needs Answer Date Record ed In the past 12 months, has l ack of reliable transportation kept you from medical appointments, meetings, work or from getting things needed for daily living? No 03/02/2025 Financial Resource Strain Answer Date R ecorded How hard is it for you to pa y for the very basics like food, housing, medical care, and heating? Would you say it is: Not hard at all 03/02/2025 Employment Answer Date Recorded Do you want help finding or keeping work or a job? I do not need or want help 03/02/2025 Family and Community Support Answer Junito e Recorded If for any reason you need h elp with day-to-day activities such as bathing, preparing meals, shopping, managing finances, etc., do you get the help you need? I get all the help I need 03/02/2025 Feeling Lonely or Isolated 0 03/02 Educational Attainment Answer Date Vitaly rded Do you speak a language other than Gambian at ho ks? No 03/02/2025 Do you want help with school or training? For example, starting or completing job training or getting a high school diploma, GED or equivalent. No 03/02/2025 Physical Activity Answer Date Recorded Number of minutes of exercise per week 0 03/02/2025 Self Management Answer Date Recorded Because of a physical, menta l, or emotional condition, do you have serious difficulty concentrating, remembering, or making decisions? (5 years or older) Yes 03/02/2025 Because of a physical, menta l, or emotional condition, do you have difficulty doing errands alone such as visiting a doctor's office or shopping? (15 years or older) Yes 03/02/2025 Substance Use Answer Date Recorded How many times in the past y ear have you used prescription drugs for non-medical reasons? Never 03/02/2025 How many times in the past year have you used il legal drugs? Never 03/02/2025 Mental Health Answer Date Recorded Calculation of above two rows 0 Comments No Sex and Gender Information Value Date Recorded Sex Assigned at Not on file Legal Sex Female 8:54 AM CDT Gender Identity Not on file Sexual Orientation Not on file documented as of this encounter Last Filed Vital Signs Vital Sign Reading Time Taken Comments Blood Pressure 143/60 03/05/2025 9:31 AM EDT Pulse 90 03/05/2025 9:31 AM EDT Temperature 36.8 C (98.2 F) 03/05/2025 9:31 AM EDT Respiratory Rate 16 03/05/2025 9:31 AM EDT Oxygen Saturation 92% 03/05/2025 9:31 AM EDT Inhaled Oxygen Concentration - - Weight 75.3 kg (166 lb) 03/02/2025 6:49 AM EDT Height - - Body Mass Index 26 02/24/2025 2:34 PM EDT documented in this encounter Discharge Summaries * Julio César Carvajal MD - 03/04/2025 9:38 AM EDT Patient Name: Lavinia Iyer : 1950 Date of Admission: 03/02/2025 Date of Discharge: 03/05/2025 Primary Care Physician: Krishan Caldwell MD Consultations: Discharge Diagnoses: Cervical myelopathy (HCC) Reason for Admission: Lavinia Iyer is an 74 y.o. female who presents for C3-5 PCF. She was seen in clinic recently with several months of significantly progressive cervical myelopathic symptoms. Imaging revealed diffuse degenerative changes with severe stenosis C3/4 as well as stenosis at C4/5 with cord compression. There was multilevel spondylolisthesis, however no instability was seen at the other levels. The risks, benefits, and alternatives of the above procedure were discussed and the patient has elected to proceed. Hospital Course: Lavinia Iyer was admitted and underwent C3-5 PCF. She tolerated surgery well without acute complications. As of today, she has been voiding, passing flatus, and is tolerating PO intake and is ready for rehab. Studies Performed: x-rays Procedures Performed: as above Discharge Medications: Your medication list PAUSE taking these medications Instructions Comments Quantity Refills aspirin 81 MG EC tablet Wait to take this until: March 05, 2025 Morning Take 1 tablet (81 mg total) by mouth daily. 0 Plavix 75 mg tablet Wait to take this until: March 07, 2025 Morning Generic drug: clopidogreL Take 1 tablet (75 mg total) by mouth daily. 0 START taking these medications Instructions Comments Quantity Refills cyclobenzaprine 5 MG tablet Commonly known as: FLEXERIL Take 1 tablet (5 mg total) by mouth 3 (three) times daily as needed for muscle spasms for up to 10 days. 30 tablet 0 docusate sodium 100 MG capsule Commonly known as: COLACE Take 1 capsule (100 mg total) by mouth 2 (two) times daily for 10 days. 10 capsule 0 oxyCODONE-acetaminophen 5-325 mg per tablet Commonly known as: PERCOCET Take 1 tablet by mouth every 6 (six) hours as needed for pain for up to 10 days Look-alike/Sound-alike medication. Max Daily Amount: 4 tablets 20 tablet 0 CONTINUE taking these medications Instructions Comments Quantity Refills atorvastatin 40 MG tablet Commonly known as: LIPITOR Take 1 tablet (40 mg total) by mouth nightly. 0 azelastine 137 mcg (0.1 %) nasal spray Commonly known as: ASTELIN Administer 1 spray into each nostril as needed. 0 bisoprolol 5 MG tablet Commonly known as: ZEBETA Take 1 tablet (5 mg total) by mouth daily. 0 hydrOXYzine pamoate 25 MG capsule Commonly known as: VISTARIL Take 1 capsule (25 mg total) by mouth nightly. 0 levothyroxine 112 MCG tablet Commonly known as: SYNTHROID Take 1 tablet (112 mcg total) by mouth Daily (0600). 0 losartan-hydroCHLOROthiazide 100-25 mg per tablet Commonly known as: HYZAAR Take 1 tablet by mouth daily. 0 meclizine 25 mg tablet Commonly known as: ANTIVERT Take 1 tablet (25 mg total) by mouth as needed. 0 ondansetron 4 MG tablet Commonly known as: ZOFRAN Take 1 tablet (4 mg total) by mouth every 8 (eight) hours as needed. 0 Ozempic 2 mg/dose (8 mg/3 mL) Pnij Generic drug: semaglutide Inject 2 mg into the shoulder, thigh, or buttocks every 7 days Thursday02/22/2025. 0 spironolactone 25 MG tablet Commonly known as: ALDACTONE Take 1 tablet (25 mg total) by mouth daily. 0 STOP taking these medications Tylenol Extra Strength 500 MG tablet Generic drug: acetaminophen Where to Get Your Medications These medications were sent to [facility] [address], [place] [id number] cyclobenzaprine 5 MG tablet docusate sodium 100 MG capsule oxyCODONE-acetaminophen 5-325 mg per tablet Physical Exam GEN: NAD NEURO: GCS 465 4/5 throughout (effort and pain limited) Incision is clean, dry, and dressed C-collar in place Discharge Instructions Discharge Follow UP: Contact information for follow-up Julio César Carvajal MD Specialty: Neurosurgery, Neurological Surgery [address] [place] [address] Next Steps: Follow up Julio César Carvajal MD Specialty: Neurosurgery, Neurological Surgery [address] [place] [address] Next Steps: Follow up Electronically signed by Julio César Carvajal MD, 03/04/25, 9:38 AM EDT documented in this encounter Discharge Instructions * Discharge Instructions* Emelia Thomas RN - 03/03/2025 7:12 AM EDT Neurosurgery Cervical Spine Post-Operative Instructions What to expect after surgery: You may have mild swelling at and around the surgical site. This should go away over time. Expect some stiffness and pain at the incision site. You may also have some arm pain remaining due to nerve root irritation during surgery. This will usually improve gradually. Being tired after surgery is normal and may take a week or so to regain your stamina. You should be in bed only to sleep. Surgeries performed from the front may be associated with a sensation of something stuck in your throat or feeling of a lump in your throat with mild difficulty swallowing. Your voice may also seem deeper. These symptoms should go away in a few weeks. If you have difficulty breathing you should go to the emergency department immediately! You should limit overhead arm activities until your follow-up appointment with your surgeon. You May: Remove the bandage over the incision 3rd day after surgery. If you have white tape strips (steri-strips) across the incision they may fall off on their own or you should take them off in 10-12 days after your surgery. Always wash your hands with antibacterial soap before and after contact with your incision and discard soiled dressings in a plastic bag. We may send you home with a few extra dressings in case your incision is draining. When you run outof dressings you can leave it open to air. You can shower when you get out of the shower take the bandage off and you can replace it with a new one if you have any leftover dressings, if not leave it open to air. Inspect your incision daily and Contact a health care provider if you have: A fever. Redness, swelling, or more pain around your incision. Fluid or blood coming from your incision. Pus or a bad smell coming from your incision. Pain that is not controlled by your pain medicine. Increasing hoarseness or trouble swallowing. (For surgeries preformed from the front) Get help right away if you have: Severe pain. Sudden numbness or weakness in your arms or legs. Warmth, tenderness, or swelling in your calf. Chest pain. Difficulty breathing Loss of control of your bowel or bladder These symptoms may represent a serious problem that is an emergency. Do not wait to see if the symptoms will go away. Get medical help right away. Call your local emergency services (911 in the [place] Do not drive yourself to the hospital. Use ice on the incision area to decrease swelling. No longer than 10 minutes at a time. Place a towel between your skin and the ice pack. If you were provided a cervical brace you may remove it to wash up. This brace must remain on at all other times and also while sleeping. Gradually resume light activities. Walking on level surfaces is encouraged. Sexual relations are permissible within reason but may be limited by pain. Change positions frequently and avoid prolonged postures. Climb up and down stairs but no ladders Take prescription medication as indicated (prescription medications for Osteoporosis should not be taken for 2 month post surgery) Follow directions closely. As needed means you should take medication only when you are feeling pain and at the intervals directed. Refills will be given ONLY if you use the medication appropriately as directed. Refills will not be given on weekends or after office hours. DO NOT take more than 4000MG of Acetaminophen (Tylenol) in 24 Hours. That includes the acetaminophen (Tylenol) in your narcotic pain medication (eg. Percocet 5/325 - this has 325mg of acetaminophen in it Drive when you are no longer on narcotic medications or other medications that can make you drowsy.Around 1-2 weeks post op. Limit driving time at first. It is recommended you have a licensed driverpresent at your first attempt and this should be on a quiet street or parking lot. Always use a seatbelt and shoulder strap in a vehicle. If you have any vision problems these should be checked priorto driving. Return to work in 2-8 weeks when allowed by your surgeon. Some light duty jobs may allow you to return earlier but this will be discussed in the office with your physician. Do Not: Get your incision saturated during the first two weeks following surgery. Do not submerge in the pool, bathtub, hot tub, or allow shower to saturate the incision (turn away from the flow of the water). Mow lawn, sweep, vacuum, dust, wash window, rake leaves, shovel, or hike. Drive while taking narcotic medications or other medications that cause drowsiness. Lift over 10lbs of weight Smoke cigarettes or inhale second hand smoke or your fusion may not be successful Take any Osteoporosis medication until 2 months after your surgery Do NOT overuse prescription medications. You must follow directions closely. As needed means you should only take them when you are feeling pain and taking them in the directed time frame (eg. Every 4 hours.) Refills will be given ONLY if you have used the medications appropriately as directed. If your surgery included a fusion, do NOT take any anti-inflammatory medications (NSAIDs, ie. Aleve, Advil, Motrin, etc.) for at least 8 weeks after surgery! * Attachments The following attachments cannot be sent through Care Everywhere. * How to Prevent Constipation After Surgery (Gambian) * How to Use an Incentive Spirometer (Gambian) documented in this encounter Medications at Time [...] Amount: 4 tablets 20 tablet 03/04/2025 5 documented as of this encounter Progress Notes * Gertrudis Garvin RN - 03/05/2025 12:45 PM EDT Care Coordination Final Discharge Plan Final Discharge Plan PCP referral provided? (P) No Community Referral Discussed with patient: (P) Yes Patient Appealing Discharge: (P) No Does the patient have ability to fill and recive their discharge medications? (P) Yes Patient returning to prior living situation: (P) No Support Systems: (P) Children, Family members Discharge Disposition: (P) SNF Services Arranged for Discharge: Contact information for follow-up Julio César Carvajal MD Specialty: Neurosurgery, Neurological Surgery [address] [place] [address] Next Steps: Follow up Julio César Carvajal MD Specialty: Neurosurgery, Neurological Surgery [address] [place] [address] Next Steps: Follow up Transporation Provider: (P) FAMILY Transporation Contact Name: Transportation Provider Phone: Date of customer support engineer: (P) 03/05/25 Time of customer support engineer: LBM-03/05. Pt dc'd to [facility] via family. No other CM needs noted. Gertrudis Garvin RN * Carlos Garg, PT - 03/05/2025 12:10 PM EDT Images from the original note were not included. Inpatient Physical Therapy Treatment Patient Name: Lavinia Iyer Date of : 1950 Date of Treatment: 03/05/25 Start Time 1145 Stop Time 1209 Session Duration 24 minutes General Visit Type: Treatment Approved by: Nurse Kirk[place] Patient Disposition Upon Entry: Supine in bed, Call Light/Pull Cord in reach, All needs met and within reach, Nursing aware/notified, Visitor/Family present Patient Verified By: Name and Date of Assisted by: mechanical service technician Precautions Weight-Bearing Status: No Restrictions Precautions: Spinal Precautions, Fall risk Isolation Precautions: Standard Brace/protective equipment: rigid cervical collar Subjective Subjective: Patient agreeable to physical therapy treatment. Pain Yes. Neck and left upper trap 01/08. Nurse has administered a muscle relaxer prior to treatment. Cognition Overall cognitive status: Patient is awake and alert, Arousal/Alertness: Appropriate response to stimuli Orientation Level: Oriented x4 Following commands: Able to follow commands appropriately with verbal cueing Treatment Vitals Stable no SOA with treatment MOBILITY TRAINING Bed Mobility: Tactile and verbal cues with supine to sit at edge of bed with Mod assistance level. Th patient sat EOB with supervision assistance for 2 minutes. Transfer Training: Tactile and verbal cues with sit<->stand utilizing rolling walker and Min assistance level for safety and to control balance and posture. Gait Training: The patient ambulated 1x45 feet and 1 x 60 feet utilizing a gait belt, rolling walker (tactile and verbal cues to maintain proper walker position) and CG assistance level. Stair Management Number of Stairs: 1 - 6 platform step Handrail Use: No rails Stair Management Assistance: moderate assistance, 1-person assist Stair Management Devices: Gait Belt, Rolling walker Stair Management Technique: walker left step to load and up with right then down leading with rightloading the left, Mod A x 2 going down Wheelchair Mobility Not assessed, patient ambulatory. AM-PAC Basic Mobility Inpatient Short Form How much difficulty does the patient currently have: Turning over in bed (including adjusting bedclothes, sheets, and blankets)? (1) Total/Unable (not able to do the activity or can only perform the activity using assistive devices or requires assistance from another person, including supervision or cueing for safety) Sitting down on and standing up from a chair with arms (e.g., wheelchair, bedside commode, etc.)? (1) Total/Unable (not able to do the activity or can only perform the activity using assistive devices or requires assistance from another person, including supervision or cueing for safety) Moving from lying on back to sitting on side of bed? (1) Total/Unable (not able to do the activity or can only perform the activity using assistive devices or requires assistance from another person,including supervision or cueing for safety) How much help from another person does the patient currently need: Moving to and from a bed to a chair (including a wheelchair)? (3) A little (Minimal/Contact guard/Supervision/Setup) Need to walk in hospital room? (3) A little (Minimal/Contact guard/Supervision/Setup) Climbing 3-5 steps with a railing? (2) A lot (Maximal/Moderate assist) Score Raw score=11 t-Scale score=33.86 Standard error=3.22 CMS 0-100%=72.57% MDC=4.72 A raw score of >= 16 is significantly associated with increased odds of discharge to home in addition to consideration made for the patient's cognition and social determinants of health. Balance Static/dynamic sitting and static/dynamic standing balance grades Balance Grade Sitting Static Fair - patient able to maintain balance with handhold support; may require occasional minimal assistance Sitting Dynamic Fair - patient accepts minimal challenge; able to maintain balance while turning head/trunk Standing Static Fair - patient able to maintain balance with handhold support; may require occasional minimal assistance Standing Dynamic Poor - patient unable to accept challenge or move without loss of balance Assessment Patient tolerated activity/intervention well with no complaints or adverse events. Resting comfortable up in chair neck supported on pillow. Problems: Decreased core stability, Decreased functional mobility, Decreased gait tolerance, Decreased strength, Decreased activity tolerance, Impaired sitting balance, Impaired standing balance, Impaired dynamic balance, Gait impairment Rehab potential: Good for stated goals Plan Treatment Plan: Therapeutic Exercise, Therapeutic Activity, Gait Training, Neuromuscular Re-education, Transfer Training, Balance Training, Stair Training, Strengthening, Home Exercise Program, ROM, Co-Treat with OT PT Frequency/Duration: Daily for 14 days Recommendations Discharge recommendations: Patient would benefit from 1-2 hours of multidisciplinary therapy per day upon discharge from acute care setting to assist with returning to prior level of functioning. DME recommendations: Patient has no DME/adaptive equipment discharge needs at this time. Goals [id number]: By the target date, patient will perform jiqiyb-fb-[id number] with complete independence, utilizing no assistive device, to improve independence with bed mobility. Mmn-hs-meuyi: By the target date, patient will perform sit to stand with modified independence and rolling walker to improve independence with functional mobility. Gait: Patient will ambulate 300' with modified independence and utilizing rolling walker in order to improve ability to ambulate community distances Stairs: By the target date, patient will negotiate 1 step(s), with a reciprocal pattern, utilizing rolling walker and modified independence, to facilitate participation in community . Target Date: 03/17/2025 Progress towards goals: progressing Education Patient educated on ambulation, transfers, bed mobility, and stair negotiation and following, they were able to nod head in understanding. No further questions or concerns stated. Interdisciplinary Communication Following treatment, therapist communicated with nursing regarding patient's performance during physical therapy session and regarding patient's level of assistance needed during transfers for nursing mobility. Patient Disposition Upon Leaving Patient in bedside chair, Call Light/Pull Cord in reach, All needs met and within reach, Nursing aware/notified, Feet lowered, Visitor/Family present If this patient discharges prior to next therapy session, this note serves as the patient's discharge summary. Electronically signed by Carlos Garg PT - 03/05/25 - 12:10 PM EDT * De Catalan PA-C - 03/05/2025 8:49 AM EDT [facility] PROGRESS NOTE: Patient: Lavinia Iyer Date: 03/05/2025 ASSESSMENT and PLAN: Lavinia Iyer is a 74 y.o. female with a history of HTN, DM II, CKD, CAD, and cervical myelopathy and other chronic medical history see below who presented on 03/02/2025 with elective C3-C5 posterior cervical fusion. DIAGNOSIS: Cervical myelopathy S/p C3/4, C4/5 posterolateral instrumentation and arthrodesis C3/4, C4/5 laminectomies on 03/02 History of breast cancer Hypertension Hypothyroidism History of NV (myocardial infarction) Coronary atherosclerosis of [place] coronary artery s/p stents Diabetes mellitus, type II CKD (chronic kidney disease), stage III XIN DVT Prophylaxis: SCDs CODE STATUS : FULL PLAN: Placed in observation Pain control with oxycodone and Dilaudid as needed SSI and Accu-Cheks Continue Synthroid Continue Aldactone and losartan for BP control DVT GI prophylaxis Continue Lipitor Will start PT OT evaluation Follow neurosurgeon for further discharge planning Discussed with the patient also her family in room Previous Living Condition: Home Expected Disposition: [facility] Expected Discharge Date: Tomorrow, per neurosurgery Subjective 03/03/2025 Patient having dry mouth and decreased urine output it appears she has been on very little IV fluidfollowing surgery so we will give her some extra fluid for the next 24 hours and see if she will improve her oral intake. Decreased urine output is also present bedside nursing said that they will check bladder scan if urine output does not improve with ongoing fluid. Patient's daughter is also very insistent on engaging with the nursing staff whether try to take care of all the patient's and shehas been in and out of the room multiple times this morning so we will let the nursing staff handlethis but she may need to be restructured into not disrupting all patient care just for questions about her mother. 03/04/2025: Patient seen and evaluated at bedside on POD2 with family and Dr. Carvajal present. Patient complained of some pain, but improved from yesterday. Has been urinating well and passing gas, but no BM yet.Denies any abdominal pain, nausea, vomiting, no fever, chills, chest pain or shortness of breath. 03/05/2025: Patient seen and evaluated. POD3. Patient currently sleeping. Spoke with daughter at bedside who states that she was doing better, pain is improved and still having some pain in the left trapezius. Had a small BM yesterday and has been passing gas. Worked with PT yesterday and did well. Daughter wanted to recheck her labs today with respect to her recent elevated kidney function. Feels comfortable taking her to [facility] today. Objective Vitals: Temp: [98.2 ??F (36.8 ??C)-99.7 ??F (37.6 ??C)] 98.2 ??F (36.8 ??C) Pulse: [80-101] 90 Resp: [16] 16 BP: (102-168)/(41-75) 143/60 Intake/Output: Intake/Output Summary (Last 24 hours) at 03/05/2025 1035 Last data filed at 03/05/2025 0900 Gross per 24 hour Intake 720 ml Output -- Net 720 ml Physical exam: General: Looks comfortable and no distress, cervical collar in place. HEENT: Head atraumatic, normocephalic. PERRL. Conjunctive are normal. Neck: Supple. No JVD noted CVS: Regular rate and rhythm,without murmurs, rubs, or gallops. Lungs: Clear to auscultation bilaterally without wheezes or rhonchi. Abdomen: Soft, nontender/nondistended. Positive bowel sounds. HYDROMETER TESTER: Alert oriented x4. No gross focal neuro deficits, brick tender equal bilaterally, normal sensation. Musculoskeletal: Range of motion is normal. No pedal edema. Skin: Warm and dry on exposed surface, bandage is clean and dry. Psychiatry: Mood appropriate Medications: Scheduled Meds: acetaminophen 1,000 mg oral Q6H 1,000 mg at 03/04/252229 atorvastatin 40 mg oral Every Night 40 mg at 03/04/252049 bisoprolol 5 mg oral Daily 5 mg at 03/05/25929 docusate sodium 100 mg oral BID 100 mg at 03/05/25929 enoxaparin 30 mg subcutaneous Q24H 30 mg at 03/04/25 1007 famotidine 20 mg oral Daily 20 mg at 03/05/25929 hydrOXYzine pamoate 25 mg oral Every Night 25 mg at 03/04/252049 insulin lispro 0-6 Units subcutaneous 4x Daily AC levothyroxine 112 mcg oral QAM (0600) 112 mcg at 03/05/25543 losartan-hydrochlorothiazide 2 tablet oral Daily 2 tablet at 03/05/25929 spironolactone 25 mg oral Daily 25 mg at 03/05/25929 Continuous Infusions: Current Facility-Administered Medications Medication Dose Route Frequency Provider Last Rate Last Admin acetaminophen (TYLENOL) tablet 1,000 mg 1,000 mg oral Q6H Julio César Carvajal MD 1,000 mg at 03/04/252229 atorvastatin (LIPITOR) tablet 40 mg 40 mg oral Every Night Valencia Harmon MD 40 mg at 03/04/252049 azelastine (ASTELIN) nasal spray 1 spray 1 spray each nostril BID PRN Valencia Harmon MD bisacodyL (DULCOLAX) EC tablet 10 mg 10 mg oral Daily PRN Julio César Carvajal MD 10 mg at 03/04/251006 Or bisacodyL (DULCOLAX) suppository 10 mg 10 mg rectal Daily PRN Julio César Carvajal MD 10 mg at bisoprolol (ZEBETA) tablet 5 mg 5 mg oral Daily Valencia Harmon MD 5 mg at 03/05/25929 cyclobenzaprine (FLEXERIL) tablet 5 mg 5 mg oral TID PRN Julio César Carvajal MD 5 mg at 03/04/25828 dextrose 50% (D50W) injection 25 g 25 g intravenous Q15 Min PRN Valencia Harmon MD docusate sodium (COLACE) capsule 100 mg 100 mg oral BID Julio César Carvajal MD 100 mg at 03/05/25929 enoxaparin (LOVENOX) syringe 30 mg 30 mg subcutaneous Q24H Julio César Carvajal MD 30 mg at 03/04/251006 famotidine (PEPCID) tablet 20 mg 20 mg oral Daily Valencia Harmon MD 20 mg at 03/05/25929 glucagon injection 1 mg 1 mg intraMUSCULAR Q15 Min PRN Valencia Harmon MD glucose chew tab 16 g 16 g oral Q15 Min PRN Valencia Harmon MD hydrALAZINE (APRESOLINE) injection 10 mg 10 mg intravenous Q4H PRN Valencia Harmon MD 10 mg at 03/04/252049 hydrOXYzine pamoate (VISTARIL) capsule 25 mg 25 mg oral Every Night Valencia Harmon MD 25 mg at insulin lispro (HUMALOG, ADMELOG) injection 0-6 Units 0-6 Units subcutaneous 4x Daily AC Valencia Harmon MD lactated Ringer's infusion 100 mL/hr intravenous Continuous Shauna Valladares MD 100 mL/hr at 03/02/25 2305 100 mL/hr at 03/02/25 2305 levothyroxine (SYNTHROID) tablet 112 mcg 112 mcg oral QAM (0600) Valencia Harmon MD 112 mcg at 03/05/25 0544 losartan-hydrochlorothiazide (HYZAAR) 50-12.5 mg per tablet 2 tablet 2 tablet oral Daily Valencia Harmon MD 2 tablet at 03/05/25 0930 magnesium hydroxide (MILK OF MAGNESIA) suspension 15 mL 15 mL oral Daily PRN De Catalan PA-C 15 mL at 03/04/25 1849 ondansetron (ZOFRAN-ODT) disintegrating tablet 4 mg 4 mg oral Q8H PRN Julio César Carvajal MD Or ondansetron (ZOFRAN) injection 4 mg 4 mg intravenous Q8H PRN Julio César Carvajal MD oxyCODONE (ROXICODONE) immediate release tablet 5 mg 5 mg oral Q4H PRN Julio César Carvajal MD 5 mg at 03/04/25 205 sodium chloride 0.9 % infusion 100 mL/hr intravenous Continuous Julio César Carvajal MD 100 mL/hr at 03/02/25 2305 100 mL/hr at 03/02/25 2305 spironolactone (ALDACTONE) tablet 25 mg 25 mg oral Daily Valencia Harmon MD 25 mg at 03/05/25 0930 PRN Meds: @MEDSPRN@ Labs: Results for orders placed or performed during the hospital encounter of 03/02/25 (from the past 24 hours) Glucose, Nova Meter Status: None Collection Time: 03/04/25 4:09 PM Result Value Ref Range POC-GLUCOSE 110 70 - 110 mg/dL [facility] Collector [id number] Glucose, Nova Meter Status: None Collection Time: 03/04/25 9:04 PM Result Value Ref Range POC-GLUCOSE 99 70 - 110 mg/dL [facility] [id number] Glucose, Nova Meter Status: None Collection Time: 03/05/25 5:56 AM Result Value Ref Range POC-GLUCOSE 84 70 - 110 mg/dL [facility] Collector [id number] Basic Metabolic Panel Status: Abnormal Collection Time: 03/05/25 9:37 AM Result Value Ref Range Sodium 139 136 - 145 meq/L Potassium 4.4 3.4 - 5.1 meq/L CO2 22 22 - 29 meq/L Chloride 108 98 - 112 meq/L Glucose 139 (H) 82 - 115 mg/dL BUN 17.9 9.8 - 20.1 mg/dL Creatinine 1.20 (H) 0.57 - 1.11 mg/dL BUN/Creatinine 15 8 - 20 Calcium 8.8 8.4 - 10.2 mg/dL Anion Gap 13 (H) 4 - 12 eGFR (mL/min/1.73m2) 47 (L) >=60 mL/min/1.73m2 Osmolality Calc 281.7 mOsm/kg Radiology: Radiology Results (last 3 days) Procedure Component Value Units Date/Time XR spine cervical 2 or 3 views [[id number]] Collected: 03/04/25925 Order Status: Completed Updated: 03/04/25939 Narrative: CERVICAL SPINE SERIES HISTORY: Acute neck pain, post-operative evaluation. COMPARISON: None. FINDINGS: Two views of the cervical spine were obtained. There are post operative changes from posterior fusion spanning the superior C3 level and the inferior C4 level. No hardware complication identified. There is moderate spurring of the cervical spine. There is no acute fracture . There is a surgical drain noted. Impression: Post-operative change without acute fracture. Images reviewed, interpreted, and dictated by Dr. Carolina Gant. Transcribed by Neelima Mancia PA-C. FL C-ARM < 1 HOUR [[id number]] Collected: 03/02/25 1443 Order Status: Completed Updated: 03/02/25 1714 Narrative: FLUOROSCOPY WITH FILMS HISTORY: C3-5 PCF Fluoroscopic guidance was provided under the direction of the clinical service for intraoperative procedure. 2 digital spot radiographs were obtained for cervical fusion. Fluoroscopy time was 0.19 minutes. RADIATION DOSE: Reference air kerma 2 mGy. Impression: Please see postoperative report. Images reviewed, interpreted, and dictated by Dr. Aneesh Castillo. Transcribed by Maco Malin PA-C. Signed: 03/05/2025 Cosigned by Marbin Loya MD at 03/17/2025 4:53 AM EDT Associated attestation - Marbin Loya MD - 03/17/2025 3:53 AM CDT The patient was independently evaluated by TIFFANY Truong. I have reviewed the chart and agree with the treatment plan as below. * Carlos Garg, PT - 03/04/2025 3:46 PM EDT Images from the original note were not included. Inpatient Physical Therapy Treatment Patient Name: Lavinia Iyer Date of : 1950 Date of Treatment: 03/04/25 Start Time 1528 Stop Time 1545 Session Duration 17 minutes General Visit Type: Treatment Approved by: Nurse Kirkland Patient Disposition Upon Entry: Supine in bed, Call Light/Pull Cord in reach, All needs met and within reach, Nursing aware/notified, Visitor/Family present Patient Verified By: Name and Date of Assisted by: mechanical service technician Precautions Weight-Bearing Status: No Restrictions Precautions: Spinal Precautions, Fall risk Isolation Precautions: Standard Lines, tubes, drains, airway: peripheral IV Brace/protective equipment: rigid cervical collar Subjective Subjective: Patient agreeable to physical therapy treatment. Pain Yes. Neck and right shoulder 6/10 after bed bath with nursing, Nursing has administered pain med Cognition Overall cognitive status: Patient is awake and alert, Arousal/Alertness: Appropriate response to stimuli Orientation Level: Oriented x4 Following commands: Able to follow commands appropriately with verbal cueing Treatment Vitals Stable no SOA with treatment MOBILITY TRAINING Bed Mobility: Tactile and verbal cues with supine to sit at edge of bed with Mod assistance level. Th patient sat EOB with supervision assistance for 2 minutes. Transfer Training: Tactile and verbal cues with sit<->stand utilizing rolling walker and Min assistance level for safety and to control balance and posture. Gait Training: The patient ambulated 160 feet utilizing a gait belt, rolling walker (tactile and verbal cues to maintain proper walker position) and CG assistance level. AM-PAC Basic Mobility Inpatient Short Form How much difficulty does the patient currently have: Turning over in bed (including adjusting bedclothes, sheets, and blankets)? (1) Total/Unable (not able to do the activity or can only perform the activity using assistive devices or requires assistance from another person, including supervision or cueing for safety) Sitting down on and standing up from a chair with arms (e.g., wheelchair, bedside commode, etc.)? (1) Total/Unable (not able to do the activity or can only perform the activity using assistive devices or requires assistance from another person, including supervision or cueing for safety) Moving from lying on back to sitting on side of bed? (1) Total/Unable (not able to do the activity or can only perform the activity using assistive devices or requires assistance from another person,including supervision or cueing for safety) How much help from another person does the patient currently need: Moving to and from a bed to a chair (including a wheelchair)? (3) A little (Minimal/Contact guard/Supervision/Setup) Need to walk in hospital room? (3) A little (Minimal/Contact guard/Supervision/Setup) Climbing 3-5 steps with a railing? (1) Total/Unable (Total assist/dependent) Score Raw score=10 t-Scale score=32.29 Standard error=3.42 CMS 0-100%=76.75% MDC=4.72 A raw score of >= 16 is significantly associated with increased odds of discharge to home in addition to consideration made for the patient's cognition and social determinants of health. Balance Static/dynamic sitting and static/dynamic standing balance grades Balance Grade Sitting Static Fair - patient able to maintain balance with handhold support; may require occasional minimal assistance Sitting Dynamic Poor - patient unable to accept challenge or move without loss of balance Standing Static Fair - patient able to maintain balance with handhold support; may require occasional minimal assistance Standing Dynamic Poor - patient unable to accept challenge or move without loss of balance Assessment Patient tolerated activity/intervention well with no complaints or adverse events. Resting comfortable up in chair neck supported on pillow. Problems: Decreased core stability, Decreased functional mobility, Decreased gait tolerance, Decreased strength, Decreased activity tolerance, Impaired sitting balance, Impaired standing balance, Impaired dynamic balance, Gait impairment Rehab potential: Good for stated goals Plan Treatment Plan: Therapeutic Exercise, Therapeutic Activity, Gait Training, Neuromuscular Re-education, Transfer Training, Balance Training, Stair Training, Strengthening, Home Exercise Program, ROM, Co-Treat with OT PT Frequency/Duration: Daily for 14 days Recommendations Discharge recommendations: Patient would benefit from 1-2 hours of multidisciplinary therapy per day upon discharge from acute care setting to assist with returning to prior level of functioning. DME recommendations: Patient has no DME/adaptive equipment discharge needs at this time. Goals [id number]: By the target date, patient will perform [id number] with complete independence, utilizing no assistive device, to improve independence with bed mobility. [id number]: By the target date, patient will perform sit to stand with modified independence and rolling walker to improve independence with functional mobility. Gait: Patient will ambulate 300' with modified independence and utilizing rolling walker in order to improve ability to ambulate community distances Stairs: By the target date, patient will negotiate 1 step(s), with a reciprocal pattern, utilizing rolling walker and modified independence, to facilitate participation in community . Target Date: 03/17/2025 Progress towards goals: progressing Education Patient educated on ambulation, transfers, and bed mobility and following, they were able to nod head in understanding. No further questions or concerns stated. Interdisciplinary Communication Following treatment, therapist communicated with nursing regarding patient's performance during physical therapy session and regarding patient's level of assistance needed during transfers for nursing mobility. Patient Disposition Upon Leaving Patient in bedside chair, Call Light/Pull Cord in reach, All needs met and within reach, Nursing aware/notified, Feet lowered, Visitor/Family present If this patient discharges prior to next therapy session, this note serves as the patient's discharge summary. Electronically signed by Carlos Garg, PT - 03/04/25 - 3:46 PM EDT * Julio César Carvajal MD - 03/04/2025 9:40 AM EDT Subjective No acute events. Feels that arms are stronger. Tolerating diet. Voiding and passing flatus. No BM yet but denies any abdominal distension or discomfort. Objective Vitals: 03/04/25 0000 03/04/25 0040 03/04/25 0400 03/04/25404 BP: (!) 169/63 (!) 149/65 111/51 116/55 Pulse: 75 73 70 70 Resp: 16 16 Temp: 97.7 ??F (36.5 ??C) 98.6 ??F (37 ??C) TempSrc: Oral Oral SpO2: 98% 100% 99% 97% Weight: Temp (24hrs), Av.2 ??F (36.8 ??C), Min:97.7 ??F (36.5 ??C), Max:98.6 ??F (37 ??C) GEN: NAD NEURO: GCS 465 4+/5 throughout (pain/effort limited) Incision is clean, dry, and dressed with collar in place Output by Drain (mL) 03/02/25 07 - 03/02/25 1859 03/02/25 1900 - 03/03/25 0659 03/03/25 0700 - 03/03/25 1859 03/03/25 1900 - 03/04/25 0659 03/04/25 07 - 03/04/25 0940 Closed/Suction Drain Posterior Neck Bulb 7 Fr. 50 (P)210 70 30 Assessment and Plan 74 y.o. female pod#2 C3-5 PCF. - Remove NATTY drain - PT/OT - Bowel regimen - DVT ppx - Out of bed at least TID, ambulate at least once per day - Incentive spirometry Q2H while awake - Plan for rehab tomorrow * De Catalan PA-C - 03/04/2025 9:21 AM EDT [facility] PROGRESS NOTE: Patient: Lavinia Iyer Date: 03/04/2025 ASSESSMENT and PLAN: Lavinia Iyer is a 74 y.o. female with a history of HTN, DM II, CKD, CAD, and cervical myelopathy and other chronic medical history see below who presented on 03/02/2025 with elective C3-C5 posterior cervical fusion. DIAGNOSIS: Cervical myelopathy S/p C3/4, C4/5 posterolateral instrumentation and arthrodesis C3/4, C4/5 laminectomies on 03/02 History of breast cancer Hypertension Hypothyroidism History of NV (myocardial infarction) Coronary atherosclerosis of [place] coronary artery s/p stents Diabetes mellitus, type II CKD (chronic kidney disease), stage III XIN DVT Prophylaxis: SCDs CODE STATUS : FULL PLAN: Placed in observation Pain control with oxycodone and Dilaudid as needed SSI and Accu-Cheks Continue Synthroid Continue Aldactone and losartan for BP control DVT GI prophylaxis Continue Lipitor Will start PT OT evaluation Follow neurosurgeon for further discharge planning Discussed with the patient also her family in room Previous Living Condition: Home Expected Disposition: [facility] Expected Discharge Date: Tomorrow, per neurosurgery Subjective 03/03/2025 Patient having dry mouth and decreased urine output it appears she has been on very little IV fluidfollowing surgery so we will give her some extra fluid for the next 24 hours and see if she will improve her oral intake. Decreased urine output is also present bedside nursing said that they will check bladder scan if urine output does not improve with ongoing fluid. Patient's daughter is also very insistent on engaging with the nursing staff whether try to take care of all the patient's and shehas been in and out of the room multiple times this morning so we will let the nursing staff handlethis but she may need to be restructured into not disrupting all patient care just for questions about her mother. 03/04/2025: Patient seen and evaluated at bedside on POD2 with family and Dr. Carvajal present. Patient complained of some pain, but improved from yesterday. Has been urinating well and passing gas, but no BM yet.Denies any abdominal pain, nausea, vomiting, no fever, chills, chest pain or shortness of breath. Objective Vitals: Temp: [97.7 ??F (36.5 ??C)-98.9 ??F (37.2 ??C)] 98.6 ??F (37 ??C) Pulse: [70-81] 70 Resp: [16] 16 BP: (111-169)/(51-66) 116/55 Intake/Output: Intake/Output Summary (Last 24 hours) at 03/04/2025 0921 Last data filed at 03/04/2025 0500 Gross per 24 hour Intake 700 ml Output 1102 ml Net -402 ml Physical exam: General: Looks comfortable and no distress, cervical collar in place. HEENT: Head atraumatic, normocephalic. PERRL. Conjunctive are normal. Neck: Supple. No JVD noted CVS: Regular rate and rhythm,without murmurs, rubs, or gallops. Lungs: Clear to auscultation bilaterally without wheezes or rhonchi. Abdomen: Soft, nontender/nondistended. Positive bowel sounds. HYDROMETER TESTER: Alert oriented x4. No gross focal neuro deficits, brick tender equal bilaterally, normal sensation. Musculoskeletal: Range of motion is normal. No pedal edema. Skin: Warm and dry on exposed surface, bandage is clean and dry, NATTY drain in place with small amount of serosanguinous drainage. Psychiatry: Mood appropriate Medications: Scheduled Meds: acetaminophen 1,000 mg oral Q6H 1,000 mg at 03/03/252347 atorvastatin 40 mg oral Every Night 40 mg at 03/03/252046 bisoprolol 5 mg oral Daily 5 mg at 03/04/25827 docusate sodium 100 mg oral BID 100 mg at 03/04/25827 enoxaparin 30 mg subcutaneous Q24H 30 mg at 03/03/25 103 famotidine 20 mg oral Daily 20 mg at 03/04/25827 hydrOXYzine pamoate 25 mg oral Every Night 25 mg at 03/03/252046 insulin lispro 0-6 Units subcutaneous 4x Daily AC levothyroxine 112 mcg oral QAM (0600) 112 mcg at 03/04/2552 losartan-hydrochlorothiazide 2 tablet oral Daily 2 tablet at 03/04/25828 spironolactone 25 mg oral Daily 25 mg at 03/04/25828 Continuous Infusions: Current Facility-Administered Medications Medication Dose Route Frequency Provider Last Rate Last Admin acetaminophen (TYLENOL) tablet 1,000 mg 1,000 mg oral Q6H Julio César Carvajal MD 1,000 mg at atorvastatin (LIPITOR) tablet 40 mg 40 mg oral Every Night Valencia Harmon MD 40 mg at 03/03/252046 azelastine (ASTELIN) nasal spray 1 spray 1 spray each nostril BID PRN Valencia Harmon MD bisacodyL (DULCOLAX) EC tablet 10 mg 10 mg oral Daily PRN Julio César Carvajal MD 10 mg at 03/03/252046 Or bisacodyL (DULCOLAX) suppository 10 mg 10 mg rectal Daily PRN Julio César Carvajal MD bisoprolol (ZEBETA) tablet 5 mg 5 mg oral Daily Valencia Harmon MD 5 mg at 10/04/25 0828 cyclobenzaprine (FLEXERIL) tablet 5 mg 5 mg oral TID PRN Julio César Carvajal MD 5 mg at 03/04/25 0829 dextrose 50% (D50W) injection 25 g 25 g intravenous Q15 Min PRN Valencia Harmon MD docusate sodium (COLACE) capsule 100 mg 100 mg oral BID Julio César Carvajal MD 100 mg at 03/04/25 0828 enoxaparin (LOVENOX) syringe 30 mg 30 mg subcutaneous Q24H Julio César Carvajal MD 30 mg at 03/03/25 1033 famotidine (PEPCID) tablet 20 mg 20 mg oral Daily Valencia Harmon MD 20 mg at 03/04/25 0828 glucagon injection 1 mg 1 mg intraMUSCULAR Q15 Min PRN Valencia Harmon MD glucose chew tab 16 g 16 g oral Q15 Min PRN Valencia Harmon MD hydrALAZINE (APRESOLINE) injection 10 mg 10 mg intravenous Q4H PRN Valencia Harmon MD hydrOXYzine pamoate (VISTARIL) capsule 25 mg 25 mg oral Every Night Valencia Harmon MD 25 mg at 7 insulin lispro (HUMALOG, ADMELOG) injection 0-6 Units 0-6 Units subcutaneous 4x Daily AC Valencia Harmon MD lactated Ringer's infusion 100 mL/hr intravenous Continuous Shauna Valladares MD 100 mL/hr at 03/02/25 2305 100 mL/hr at 03/02/25 2305 levothyroxine (SYNTHROID) tablet 112 mcg 112 mcg oral QAM (0600) Valencia Harmon MD 112 mcg at 03/04/25 0552 losartan-hydrochlorothiazide (HYZAAR) 50-12.5 mg per tablet 2 tablet 2 tablet oral Daily Valencia Harmon MD 2 tablet at 03/04/25 0829 ondansetron (ZOFRAN-ODT) disintegrating tablet 4 mg 4 mg oral Q8H PRN Julio César Carvajal MD Or ondansetron (ZOFRAN) injection 4 mg 4 mg intravenous Q8H PRN Julio César Carvajal MD oxyCODONE (ROXICODONE) immediate release tablet 5 mg 5 mg oral Q4H PRN Julio César Carvajal MD 5 mg at 03/04/25 0828 sodium chloride 0.9 % infusion 100 mL/hr intravenous Continuous Julio César Carvajal MD 100 mL/hr at 03/02/25 2305 100 mL/hr at 03/02/25 230 spironolactone (ALDACTONE) tablet 25 mg 25 mg oral Daily Valencia Harmon MD 25 mg at 03/04/25 0829 PRN Meds: @MEDSPRN@ Labs: Results for orders placed or performed during the hospital encounter of 03/02/25 (from the past 24 hours) Glucose, Nova Meter Status: None Collection Time: 03/03/25 10:35 AM Result Value Ref Range POC-GLUCOSE 104 70 - 110 mg/dL [facility] [id number] Glucose, Nova Meter Status: Abnormal Collection Time: 03/03/25 4:04 PM Result Value Ref Range POC-GLUCOSE 125 (H) 70 - 110 mg/dL [facility] Collector [id number] Glucose, Nova Meter Status: Abnormal Collection Time: 03/03/25 8:17 PM Result Value Ref Range POC-GLUCOSE 121 (H) 70 - 110 mg/dL [facility] Collector [id number] Glucose, Nova Meter Status: None Collection Time: 03/04/25 5:08 AM Result Value Ref Range POC-GLUCOSE 99 70 - 110 mg/dL [facility] Collector [id number] Radiology: Radiology Results (last 3 days) Procedure Component Value Units Date/Time XR spine cervical 2 or 3 views - In process [[id number]] Resulted: 03/03/25 0944 Order Status: Sent Updated: 03/03/25 1007 This result has not been signed. Information might be incomplete. [place] C-ARM < 1 HOUR [[id number]] Collected: 03/02/25 1443 Order Status: Completed Updated: 03/02/25 1714 Narrative: FLUOROSCOPY WITH FILMS HISTORY: C3-5 PCF Fluoroscopic guidance was provided under the direction of the clinical service for intraoperative procedure. 2 digital spot radiographs were obtained for cervical fusion. Fluoroscopy time was 0.19 minutes. RADIATION DOSE: Reference air kerma 2 mGy. Impression: Please see postoperative report. Images reviewed, interpreted, and dictated by Dr. Aneesh Castillo. Transcribed by Maco Malin PA-C. Signed: 03/04/2025 Cosigned by Valencia Harmon MD at 03/04/2025 3:01 PM EDT Associated attestation - Valencia Harmon MD - 03/04/2025 2:01 PM CDT De Vidal has privileges to practice independently in the hospital. I did not see this patient or participate in care in any way on the day this note was signed. I am attesting this note for administrative purposes only, in order to finalize the note, since the hospital's version of the [employer] EMR requires attestations for mid-level providers. * Marbin Loya MD - 03/03/2025 6:49 PM EDT [facility] PROGRESS NOTE: Patient: Lavinia Iyer Date: 03/03/2025 ASSESSMENT and PLAN: Lavinia Iyer is a 74 y.o. female with a history of HTN, DM II, CKD, CAD, and cervical myelopathy and other chronic medical history see below who presented on 03/02/2025 with elective C3-C5 posterior cervical fusion. DIAGNOSIS: Cervical myelopathy S/p C3/4, C4/5 posterolateral instrumentation and arthrodesis C3/4, C4/5 laminectomies on 03/02 History of breast cancer Hypertension Hypothyroidism History of NV (myocardial infarction) Coronary atherosclerosis of [place] coronary artery s/p stents Diabetes mellitus, type II CKD (chronic kidney disease), stage III XIN DVT Prophylaxis: lovenox per NS CODE STATUS : full PLAN: Observation patient to hospital tonight Pain control with oxycodone and Dilaudid as needed Insulin sliding scale Continue Synthroid Continue Aldactone and losartan for BP control DVT GI prophylaxis Continue Lipitor CBC BMP ordered in the morning Will start PT OT evaluation Follow neurosurgeon for further discharge planning Discussed with the patient also her family in room Previous Living Condition: Home Expected Disposition: TBD Expected Discharge Date: TBD Subjective 03/03/2025 Patient having dry mouth and decreased urine output it appears she has been on very little IV fluidfollowing surgery so we will give her some extra fluid for the next 24 hours and see if she will improve her oral intake. Decreased urine output is also present bedside nursing said that they will check bladder scan if urine output does not improve with ongoing fluid. Patient's daughter is also very insistent on engaging with the nursing staff whether try to take care of all the patient's and shehas been in and out of the room multiple times this morning so we will let the nursing staff handlethis but she may need to be restructured into not disrupting all patient care just for questions about her mother. Objective Vitals: Temp: [97.3 ??F (36.3 ??C)-99.3 ??F (37.4 ??C)] 98.4 ??F (36.9 ??C) Pulse: [72-86] 78 Resp: [16-18] 18 BP: (114-160)/(54-76) 134/63 Intake/Output: Intake/Output Summary (Last 24 hours) at 03/03/2025 1849 Last data filed at 03/03/2025 1000 Gross per 24 hour Intake 1002.5 ml Output 910 ml Net 92.5 ml Physical exam: General: Looks comfortable and no distress HEENT: Head atraumatic, normocephalic. Pupil bilateral equal and reacting. Conjunctive are normal. Neck: Supple. No JVD noted CVS: Regular rate and rhythm no murmur. Lungs: Bilateral air entry. Normal chest expansion. Clear to auscultation bilaterally. Abdomen: Soft. Nontender. Positive bowel sounds. HYDROMETER TESTER: Alert oriented x3. No gross neurological focal deficits. Musculoskeletal: Range of motion is normal. No pedal edema. Skin: Warm and dry on exposed surface. Psychiatry: Mood appropriate Medications: Scheduled Meds: acetaminophen 1,000 mg oral Q6H 1,000 mg at 03/03/25 1814 atorvastatin 40 mg oral Every Night 40 mg at 03/02/252123 bisoprolol 5 mg oral Daily 5 mg at 03/03/2517 docusate sodium 100 mg oral BID 100 mg at 03/03/2517 enoxaparin 30 mg subcutaneous Q24H 30 mg at 03/03/25 1033 famotidine 20 mg oral Daily 20 mg at 03/03/25 0917 hydrOXYzine pamoate 25 mg oral Every Night 25 mg at 03/02/252123 insulin lispro 0-6 Units subcutaneous 4x Daily AC levothyroxine 112 mcg oral QAM (0600) 112 mcg at 03/03/25 0508 losartan-hydrochlorothiazide 2 tablet oral Daily 2 tablet at 03/03/25916 spironolactone 25 mg oral Daily 25 mg at 03/03/25916 Continuous Infusions: Current Facility-Administered Medications Medication Dose Route Frequency Provider Last Rate Last Admin acetaminophen (TYLENOL) tablet 1,000 mg 1,000 mg oral Q6H Julio César Carvajal MD 1,000 mg at 03/03/25 181 atorvastatin (LIPITOR) tablet 40 mg 40 mg oral Every Night Valencia Harmon MD 40 mg at 03/02/252123 azelastine (ASTELIN) nasal spray 1 spray 1 spray each nostril BID PRN Valencia Harmon MD bisacodyL (DULCOLAX) EC tablet 10 mg 10 mg oral Daily PRN Julio César Carvajal MD Or bisacodyL (DULCOLAX) suppository 10 mg 10 mg rectal Daily PRN Julio César Carvajal MD bisoprolol (ZEBETA) tablet 5 mg 5 mg oral Daily Valencia Harmon MD 5 mg at 03/03/25916 cyclobenzaprine (FLEXERIL) tablet 5 mg 5 mg oral TID PRN Julio César Carvajal MD 5 mg at 03/03/25 0436 dextrose 50% (D50W) injection 25 g 25 g intravenous Q15 Min PRN Valencia Harmon MD docusate sodium (COLACE) capsule 100 mg 100 mg oral BID Julio César Carvajal MD 100 mg at 03/03/25916 enoxaparin (LOVENOX) syringe 30 mg 30 mg subcutaneous Q24H Julio César Carvajal MD 30 mg at 03/03/25 1033 famotidine (PEPCID) tablet 20 mg 20 mg oral Daily Valencia Harmon MD 20 mg at 03/03/25916 glucagon injection 1 mg 1 mg intraMUSCULAR Q15 Min PRN Valencia Harmon MD glucose chew tab 16 g 16 g oral Q15 Min PRN Valencia Harmon MD hydrALAZINE (APRESOLINE) injection 10 mg 10 mg intravenous Q4H PRN Valencia Harmon MD HYDROmorphone (DILAUDID) injection 0.5 mg 0.5 mg intravenous Q4H PRN Julio César Carvajal MD 0.5 mg at 10/02/25 2125 hydrOXYzine pamoate (VISTARIL) capsule 25 mg 25 mg oral Every Night Valencia Harmon MD 25 mg at 124 insulin lispro (HUMALOG, ADMELOG) injection 0-6 Units 0-6 Units subcutaneous 4x Daily AC Valencia Harmon MD lactated Ringer's infusion 100 mL/hr intravenous Continuous Shauna Valladares MD 100 mL/hr at 03/02/25 2305 100 mL/hr at 03/02/25 2305 levothyroxine (SYNTHROID) tablet 112 mcg 112 mcg oral QAM (0600) Valencia Harmon MD 112 mcg at 03/03/25 0508 losartan-hydrochlorothiazide (HYZAAR) 50-12.5 mg per tablet 2 tablet 2 tablet oral Daily Valencia Harmon MD 2 tablet at 03/03/25 0917 ondansetron (ZOFRAN-ODT) disintegrating tablet 4 mg 4 mg oral Q8H PRN Julio César Carvajal MD Or ondansetron (ZOFRAN) injection 4 mg 4 mg intravenous Q8H PRN Julio César Carvajal MD oxyCODONE (ROXICODONE) immediate release tablet 5 mg 5 mg oral Q4H PRN Julio César Carvajal MD 5 mg at 03/03/25 1033 sodium chloride 0.9 % infusion 100 mL/hr intravenous Continuous Julio César Carvajal MD 100 mL/hr at 03/02/25 2305 100 mL/hr at 03/02/25 2305 sodium chloride 0.9 % infusion 100 mL/hr intravenous Continuous Marbin Loya MD 100 mL/hr at 03/03/25 0919 100 mL/hr at 03/03/25 0919 spironolactone (ALDACTONE) tablet 25 mg 25 mg oral Daily Valencia Harmon MD 25 mg at 03/03/25 0917 PRN Meds: @MEDSPRN@ Labs: Results for orders placed or performed during the hospital encounter of 03/02/25 (from the past 24 hours) Glucose, Nova Meter Status: Abnormal Collection Time: 03/02/25 8:28 PM Result Value Ref Range POC-GLUCOSE 131 (H) 70 - 110 mg/dL Antique Collector [id number] CBC (Hemogram only) Status: Abnormal Collection Time: 03/03/25 2:36 AM Result Value Ref Range WBC 9.9 4.0 - 10.0 K/??L RBC 3.74 (L) 3.93 - 5.22 M/??L Hemoglobin 11.4 11.2 - 15.7 GM/DL Hematocrit 34.8 34.1 - 44.9 % MCV 93 79 - 95 fL MCH 30.5 25.6 - 32.2 pg MCHC 32.8 32.2 - 35.5 GM/DL RDW 14.0 11.7 - 14.4 % Platelets 172 140 - 375 K/CU MM MPV 12.0 9.4 - 12.3 fL Basic Metabolic Panel Status: Abnormal Collection Time: 03/03/25 2:36 AM Result Value Ref Range Sodium 141 136 - 145 meq/L Potassium 5.0 3.4 - 5.1 meq/L CO2 21 (L) 22 - 29 meq/L Chloride 109 98 - 112 meq/L Glucose 125 (H) 82 - 115 mg/dL BUN 18.9 9.8 - 20.1 mg/dL Creatinine 1.40 (H) 0.57 - 1.11 mg/dL BUN/Creatinine 14 8 - 20 Calcium 8.9 8.4 - 10.2 mg/dL Anion Gap 16 (H) 4 - 12 eGFR (mL/min/1.73m2) 39 (L) >=60 mL/min/1.73m2 Osmolality Calc 285.0 mOsm/kg Glucose, Nova Meter Status: Abnormal Collection Time: 03/03/25 5:39 AM Result Value Ref Range POC-GLUCOSE 130 (H) 70 - 110 mg/dL Antique Collector [id number] Glucose, Nova Meter Status: None Collection Time: 03/03/25 10:35 AM Result Value Ref Range POC-GLUCOSE 104 70 - 110 mg/dL Antique Collector [id number] Glucose, Nova Meter Status: Abnormal Collection Time: 03/03/25 4:04 PM Result Value Ref Range POC-GLUCOSE 125 (H) 70 - 110 mg/dL Antique Collector [id number] Radiology: Radiology Results (last 3 days) Procedure Component Value Units Date/Time XR spine cervical 2 or 3 views - In process [[id number]] Resulted: 03/03/25 0944 Order Status: Sent Updated: 03/03/25 1007 This result has not been signed. Information might be incomplete. FL C-ARM < 1 HOUR [[id number]] Collected: 03/02/25 1443 Order Status: Completed Updated: 03/02/25 8064 Narrative: FLUOROSCOPY WITH FILMS HISTORY: C3-5 PCF Fluoroscopic guidance was provided under the direction of the clinical service for intraoperative procedure. 2 digital spot radiographs were obtained for cervical fusion. Fluoroscopy time was 0.19 minutes. RADIATION DOSE: Reference air kerma 2 mGy. Impression: Please see postoperative report. Images reviewed, interpreted, and dictated by Dr. Aneesh Castillo. Transcribed by Maco Malin PA-C. Signed: 03/03/2025 * Gertrudis Garvin RN - 03/03/2025 5:13 PM EDT Care Coordination Initial Assessment Home Environment Type of Residence: Private residence Living Arrangements: Spouse/significant other Support System: Spouse/significant other, Children, Family members Home Caregiver: Accessibility Issues: None Current Agency Name & Number: Patient returning to prior living situation? No Compliance: Patient has high rate of compliance with treatment. Motivation: Patient has high desire for learning/change. Affect/Behavior: Appropriate Prior/Regular Transportation: Family Current Transportation Agency Information: Needs assistance with transportation:No ADL Screen Current Sensory Deficits: None Patient's Vision Adequate to Safely complete ADLs:Yes Patient's Judgement Adequate to safely completed ADLs: Yes Dressing: Independent Current Home Care Services: Current Home Care Services: None Assistive DevicesYes Patient's Judgement Adequate to Safely Complete Daily Activities: Yes Dressing: Independent Current Lines, Tubes: Special/Community Services: (P) None Transition Needs Expected Discharge Date: Home or Post Acute Services Needed: (P) Post acute facilities (Rehab/SNF/etc) Does the patient have the ability to fill and receive their discharge medications: (P) Yes Discharge plan discussed: (P) The discharge plan was discussed with patient. Discharge Barriers: (P) Activity Type of Assistive Devices Needed for Discharge: (P) None Patient Discharge Goal: (P) Halfway Facility Mandated Reporting: (P) Not applicable PT/OT/MINING DETAIL DRAFTSPERSON Recommendations PT Recommendations: OT Recommendations: MINING DETAIL DRAFTSPERSON Recommendations: CM consulted for rehab placement. Met with pt and family at bedside to discuss DCP. They state [facility] ago and requests a bed for after surgery. CM reached to [place] confirmed this. Referral sent via [facility] and she has been accepted for admission after 3rd MNon Monday 03/05. Family will transport. Pt will also need to have a BM prior to DC. CM will follow. Gertrudis Garvin RN * Melania Johnson, PT - 03/03/2025 2:16 PM EDT Images from the original note were not included. Inpatient Physical Therapy Initial Evaluation Patient Name: Lavinia Iyer Date of : 1950 Date of Evaluation: 03/03/25 In Time 1416 Out Time 1454 Session Duration 38 minutes Time spent for nursing collaboration, chart and systems review, and clinical reasoning. 10 minutes Total Time 48 minutes Pt is a 74 y.o. 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 Past Medical History: Diagnosis Date Arthritis Cancer (HCC) breast Coronary artery disease 5 stents Diabetes mellitus (HCC) Hypertension PONV (postoperative nausea and vomiting) Thyroid disease Past Surgical History: Procedure Laterality Date BREAST SURGERY Right lumpectomy CARDIAC SURGERY 2023 heart catherization with 5 stents CATARACT EXTRACTION Bilateral COLONOSCOPY DILATION AND CURETTAGE OF UTERUS LAMINECTOMY,POSTERIOR CERVICAL PRONE W/FUSION N/A 03/02/2025 Procedure: C3-C5 POSTERIOR CERVICAL FUSION WITH NEUROMONITORING; Surgeon: Julio César Carvajal MD; Location: [facility]; Service: Neurological Surgery; Laterality: N/A; TUBAL LIGATION General Visit type: Initial Evaluation Approved by: Nurse Cruz Patient Disposition Upon Entry: Supine in bed, HOB >30 degrees, Visitor/Family present Patient Verified By: Name and Date of Co-treated by: OT Precautions Weight-Bearing Status: No Restrictions Precautions: Spinal Precautions, Fall risk Isolation Precautions: Standard Lines, tubes, drains, airway: NATTY drain, peripheral IV Brace/protective equipment: rigid cervical collar Subjective Subjective: Patient agreeable to physical therapy evaluation and treatment. Pain Yes. 0-10 SCALE Pain location: neck 8/10. Pain intervention: Medication (See eMAR) Repositioned Nurse notified Nurse notified and medication administered Ambulation/increased activity. Response to intervention: Not changed Cognition Overall cognitive status: Patient is awake and alert, attending to directions appropriately, demonstrating good problem solving skills, and aware of any deficits or impairments, if present. Orientation Level: Oriented x4 Safety Judgment: Decreased awareness of need for assistance Decreased awareness of need for safety Awareness of Errors: Assistance require to identify errors made Assistance required to correct errors made Home Living Lives with: Spouse (daughter and son in law live close by) Home Type: House Home Layout: One level Stairs to enter: None Stairs inside home: none Home Equipment: Rollator Functional Mobility PLOF: Patient reports being modified independent with all functional mobility with the use of Rollator Activities of Daily Living PLOF: Patient reports being complete independent with all ADL's prior toonset. Fall History: Yes, patient reports 5-6 fall(s) in the last 6 months. The most recent fall was 2 weeks ago. Objective Vitals Pre-intervention vitals Heart rate: 77 beats per minute Blood pressure: 146/63 mmHg SpO2: 97% O2: 3 (L/min) nasal cannula Post-intervention vitals Heart rate: 81 beats per minute Blood pressure: 188/66 mmHg SpO2: 97% O2 : 3 (L/min) nasal cannula Basic Strength Assessment Grossly 4/5 bilateral lower extremities Range of Motion Assessment WFL for all extremities Sensation Sensation is intact and equal bilaterally. Coordination Coordination is intact and within normal limits. Functional Mobility Bed Mobility Supine to Sit: maximal assistance, HOB flat Transfers Sit to Stand: moderate assistance, 2-person assist, gait belt used, rolling walker used Toilet: maximal assistance, 2-person assist, gait belt used, rolling walker used *assist onto toilet due to decreased safety awareness and difficulty with appropriate line up to sit* Gait Gait Assistance: moderate assistance Assistive Device: Gait Belt, Rolling walker Distance: 75 feet with multiple standing rest breaks Gait speed: decreased steve Deviation(s): assist required for walker navigation and walker proximity; cues especially required in turns; increased trunk flexion; right lateral trunk flexion; decreased left stance phase Stair Management Unable to assess due to pain, deconditioning, and fatigue. Wheelchair Mobility Not assessed, patient ambulatory. Outcome Measures [facility] Basic Mobility Inpatient Short Form How much difficulty does the patient currently have: Turning over in bed (including adjusting bedclothes, sheets, and blankets)? (1) Total/Unable (not able to do the activity or can only perform the activity using assistive devices or requires assistance from another person, including supervision or cueing for safety) Sitting down on and standing up from a chair with arms (e.g., wheelchair, bedside commode, etc.)? (1) Total/Unable (not able to do the activity or can only perform the activity using assistive devices or requires assistance from another person, including supervision or cueing for safety) Moving from lying on back to sitting on side of bed? (1) Total/Unable (not able to do the activity or can only perform the activity using assistive devices or requires assistance from another person,including supervision or cueing for safety) How much help from another person does the patient currently need: Moving to and from a bed to a chair (including a wheelchair)? (2) A lot (Maximal/Moderate assist) Need to walk in hospital room? (2) A lot (Maximal/Moderate assist) Climbing 3-5 steps with a railing? (1) Total/Unable (Total assist/dependent) Score Raw score=8 t-Scale score=28.58 Standard error=4.04 CMS 0-100%=86.62% MDC=4.72 A raw score of >= 16 is significantly associated with increased odds of discharge to home in addition to consideration made for the patient's cognition and social determinants of health. Balance Static/dynamic sitting and static/dynamic standing balance grades Balance Grade Sitting Static Fair - patient able to maintain balance with handhold support; may require occasional minimal assistance Sitting Dynamic Fair - patient accepts minimal challenge; able to maintain balance while turning head/trunk Standing Static Fair - patient able to maintain balance with handhold support; may require occasional minimal assistance Standing Dynamic Fair - patient accepts minimal challenge; able to maintain balance while turning head/trunk Activity Tolerance Patient limited with activity/intervention due to pain, fatigue, deconditioning, and weakness Treatment Patient agreeable to PT evaluation. Requesting to use toilet before additional mobility. Significant cues required for safety with walker navigation and transition to toilet. Progressed ambulation asnoted above with patient requiring assist for use of walker and kinematics. She denies increase in pain throughout mobility. She does report initial symptoms do appear to be resolving as she is better able to lift her right leg compared to pre-surgery. Patient positioned in bedside chair with family present in room. Assessment At baseline, patient was independent with ADLs, was independent with functional mobility using assistive devices. Patient presenting with decreased activity tolerance, generalized weakness with functional activities, impaired dynamic balance with transfers, impaired dynamic balance with ambulation,impaired sitting balance, shortness of air with physical activity, and pain limiting function. Because of this, patient would have difficulty with independently performing transferring, ambulating household distances, ambulating community distances, and negotiating stairs. These functional limitations put the patient at an increased risk for loss of independence with functional mobility and activities of daily living, falling, caregiver burden, complications due to immobilization, deconditioning, and decreased quality of life. Patient would benefit from skilled physical therapy services during length of stay for strengthening, balance training to decrease risk of falling, endurance training to improve activity tolerance, stair training, gait training, and transfer training. Problems: Decreased core stability, Decreased functional mobility, Decreased gait tolerance, Decreased strength, Decreased activity tolerance, Impaired sitting balance, Impaired standing balance, Impaired dynamic balance, Gait impairment Rehab potential: Good for stated goals Plan Treatment Plan: Therapeutic Exercise, Therapeutic Activity, Gait Training, Neuromuscular Re-education, Transfer Training, Balance Training, Stair Training, Strengthening, Home Exercise Program, ROM, Co-Treat with OT PT Frequency/Duration: Daily for 14 days Recommendations Discharge recommendations: Patient would benefit from 1-2 hours of multidisciplinary therapy per day upon discharge from acute care setting to assist with returning to prior level of functioning. DME recommendations: Patient has no DME/adaptive equipment discharge needs at this time. Goals [id number]: By the target date, patient will perform [id number] with complete independence, utilizing no assistive device, to improve independence with bed mobility. [id number]: By the target date, patient will perform sit to stand with modified independence and rolling walker to improve independence with functional mobility. Gait: Patient will ambulate 300' with modified independence and utilizing rolling walker in order to improve ability to ambulate community distances Stairs: By the target date, patient will negotiate 1 step(s), with a reciprocal pattern, utilizing rolling walker and modified independence, to facilitate participation in community . Target Date: 03/17/2025 Goals were discussed with patient Education Patient educated on safety, role of physical therapy, plan of care, ambulation, transfers, home safety, and need for assistance and following, they were able to verbalize understanding. No further questions or concerns stated. Interdisciplinary Communication Following treatment, therapist communicated with nursing regarding patient's performance during physical therapy session and regarding patient's level of assistance needed during transfers for nursing mobility. Patient Disposition Upon Leaving Patient in bedside chair, Call Light/Pull Cord in reach, All needs met and within reach, Nursing aware/notified, Feet elevated, Fall mat placed, Visitor/Family present If this patient discharges prior to next therapy session, this note serves as the patient's discharge summary. Electronically signed by Melania Johnson, PT - 03/03/25 - 3:11 PM EDT PT Evaluation Completed * Jose Mcnair, OTR/L - 03/03/2025 2:16 PM EDT Images from the original note were not included. [facility] Inpatient Occupational Therapy Initial Evaluation Patient Name: Lavinia Iyer Date of : 1950 Date of Evaluation: 03/03/25 Start Time: 1416 Stop Time: 1503 Session Duration: 47 minutes Total time: 57 minutes spent, including 10 minutes for nursing collaboration, thorough chart and systems review, and clinical reasoning. This patient is a 74 y.o. 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 Past Medical History: Diagnosis Date Arthritis Cancer (HCC) breast Coronary artery disease 5 stents Diabetes mellitus (HCC) Hypertension PONV (postoperative nausea and vomiting) Thyroid disease Past Surgical History: Procedure Laterality Date BREAST SURGERY Right lumpectomy CARDIAC SURGERY 2023 heart catherization with 5 stents CATARACT EXTRACTION Bilateral COLONOSCOPY DILATION AND CURETTAGE OF UTERUS LAMINECTOMY,POSTERIOR CERVICAL PRONE W/FUSION N/A 03/02/2025 Procedure: C3-C5 POSTERIOR CERVICAL FUSION WITH NEUROMONITORING; Surgeon: Julio César Carvajal MD; Location: [facility]; Service: Neurological Surgery; Laterality: N/A; TUBAL LIGATION General Visit type: Initial Evaluation Approved by: Nurse Cruz Patient disposition upon entry: Patient verified by name, Patient verified by date of , Supinein bed, Visitor/family present, All needs met and within reach, Call light/pull cord in reach, Fallmats in place, Head of bed >30 degrees, Side rails up, rigid c collar donned Co-treated by: PT Precautions Weightbearing status: No restrictions Precautions: Spinal precautions, Fall risk Isolation precautions: Standard LDA/Brace/Protective equipment: Lines, drains, and airways: NATTY drain, blood pressure cuff, nasal cannula, peripheral IV, telemetry Brace/protective equipment: Rigid cervical collar Subjective Subjective: Pt agreeable Patient's stated goal: Pt hopes to regain mobility with ADLs and mobiltiy. Pain 0-10 SCALE Pain location: neck 810. Pain intervention: Medication (See eMAR). Response to intervention: Not changed Cognition Cognition: Overall cognitive status: Patient is awake and alert, attending to directions appropriately, demonstrating good problem solving skills, and aware of any deficits or impairments, if present. Arousal/alertness: Appropriate response to stimuli Orientation level: Oriented x4 Following commands: Follows all commands and directions without difficulty Safety judgment: Decreased awareness of need for assistance Decreased awareness of need for safety Vision/Hearing History Visual/Hearing History: Current Vision: Wears glasses for reading only Current Hearing: Hard of hearing in both ears Home Living Lives with: Spouse Receives help from: Patient does not need help from others at baseline Type of home: House Home layout: One level, No stairs to enter Bathroom layout: Tub/shower unit Home equipment available: rollator Functional Mobility PLOF: Patient reports being modified independent with all functional mobility with the use of Rollator Activities of Daily Living PLOF: Patient reports being modified independent with all ADL's with theuse of Rollator Does the patient have a recent history of falls?: Yes; patient has had 6 fall(s) in the past 6 months Objective Vitals Pre-intervention vitals Heart rate: 77 beats per minute Blood pressure: 146/63 mmHg SpO2: 97% O2: 3 (L/min) nasal cannual Post-intervention vitals Heart rate: 81 beats per minute Blood pressure: 138/66 mmHg SpO2: 97% O2 : 2 (L/min) nasal cannula Range of Motion Assessment Functional with limitations: Patient is able to use bilateral upper extremities for reaching/grasping/holding objects at or below shoulder level, but not above Comment: tested at or below shoulder level secondary to spinal precautions. Strength Assessment RAMANA SINGH Shoulder Flexion 3-/5 3-/5 Shoulder Abduction NT NT Elbow Flexion 4-/5 4-/5 Elbow Extension 4-/5 4-/5 Wrist Flexion 4-/5 4-/5 Wrist Extension 4-/5 4-/5 Engineering Clerk Strength Good Good MMT tested at or below shoulder level secondary to spinal precautions. Coordination/Sensation [id number]: LUE (3) Minimal Impairment: Able to accomplish activity; slightly less than normal control, speed, and steadiness, RUE (3) Minimal Impairment: Able to accomplish activity; slightly less than normal control, speed, and steadiness Finger opposition: LUE (2) Moderate Impairment: Able to accomplish activity; movements are slow, awkward, and unsteady, CHRISTOPHERE (3) Minimal Impairment: Able to accomplish activity; slightly less than normal control, speed, and steadiness Sensation: Pt reported decreased sensation to R UE, but reported it is improving since procedure Bed Mobility Supine to sit: Maximal assistance, log rolling technique Transfers Sit to stand:Moderate assistance, Maximal assistance, 2 person assist, Gait belt used, Rolling walker used Functional mobility:Moderate assistance, 1 person assist, Gait belt used, Rolling walker used Toilet transfer:Maximal assistance, 2 person assist, Gait belt used, Rolling walker used ADLs Feeding:Standby Assist Grooming:Minimal Assistance Bathing:Moderate Assistance Upper body dressing:Minimal Assistance Lower body dressing:Maximal Assistance Toileting:Maximal Assistance Outcome Measures [facility] Daily Living Functional Assessment How much help from another person does the patient currently need: Putting on and taking off regular lower body clothing? 2 Bathing, including washing, rinsing, and drying? 2 Toileting, including using toilet, bedpan or urinal? 2 Putting on and taking off regular upper body clothing? 3 Taking care of personal grooming such as brushing teeth? 3 Eating meals? 3 1=Total/Unable (Total assist/Dependent) 2=A lot (Maximal/Moderate assist) 3=A little (Minimal/Contact guard/Supervision/Setup) 4=None (Modified independent/Independent) The patient's [facility] raw score is 15. The patient currently has 56.46% functional impairment. Clinicians are most likely to recommend inpatient/SNF/jail care for patients with scores between 6-17, home health for scores between 18-22, and routine discharge for scores above 22. Balance Static sitting balance:Fair: Patient able to maintain balance with handheld support, may require occasional minimal assistance Dynamic sitting balance:Fair: Patient accepts minimal challenge; able to maintain balance while turning head/trunk Static standing balance:Fair: Patient able to maintain balance with handheld support, may require occasional minimal assistance Dynamic standing balance:Fair: Patient accepts minimal challenge; able to maintain balance while turning head/trunk Activity Tolerance Patient limited with activity/intervention due to pain, fatigue, deconditioning, and weakness Treatment Pt was supine in bed with c-collar in place. Pt was educated on spinal precautions and log rolling technique. Additionally, pt was educated on importance of compliance with C-collar. Pt completed supine to sit EOB with Max A with log rolling technique. She completed sit to stand with Mod A x 2. Pt completed functional mobility to toilet requiring Max A x 2 for toilet transfer with cuing for safety. Pt completed functional mobility supported at RW with Mod A x 1. She required sta nding rest breaks and cuing to safely manage assistive device. The pt was seated in bedside chair. Physical therapist departed. OT provided pt with Educational OTADL Handout and AE including: laserist, sock aide, long handled shoehorn, and long handled sponge. Pt was educated on use of call light for assist with ADL tasks/transfers. Educated pt/family that she may benefit from shower chair versus tub transfer bench at home to decrease risk of falls and promote independence with bathing tasks. Assessment Assessment Prior to admission, patient was independent with ADLs using adaptive equipment, was independent with functional mobility using assistive devices. Currently the patient presents with decreased balance, decreased knowledge of precautions, decreased safety awareness , difficulty with ADLs, fall risk,impaired endurance, impaired functional mobility, impaired IADLs, impaired UE coordination, increased pain. These deficits currently impact the patient's ability to perform ADLs and functional mobility, putting them at an increased risk for increased falls, decreased quality of life, increased riskof pressure injury, further functional decline, further decreased strength, increased caregiver burden, other medical complications. The patient has good rehab potential and would benefit from OT services to address the aforementioned functional deficits in order to return to prior level of function. The patient's current [facility] score of 15 would indicate that the patient will likely be appropriate for inpatient rehab/SNF/ jail care post hospitalization. Plan Recommendations Discharge recommendations: Patient would benefit from 1-2 hours of multidisciplinary therapy per day upon discharge from acute care setting to assist with returning to prior level of functioning., Ifthe patient is declining/denied post-acute placement, patient would benefit from continued therapy services and supervision; see equipment recommendations for details DME recommendations: Unable to make adaptive/DME recommendations at this time. Treatment Plan: Continue OT POC OT Frequency/Duration: 3x/week for 14 days Goals Grooming: face washing, sitting edge of bed with setup Lower body dressing: donning and doffing lower body clothing with minimal assistance. Toileting: toileting with minimal assistance. Bed mobility: supine to sit with minimal assistance. Functional transfers: stand pivot transfer with contact guard assist. Target Date: 03/17/2025 Goals were discussed with patient Education Patient/Visitors educated on safety, use of call light, role of occupational therapy, ADLs, adaptive equipment, functional mobility, cervical spinal precautions, educational materials provided and following, they were able to verbalize understanding. Patient Disposition Upon Leaving Patient disposition upon leaving: Sitting in bedside chair, Visitor/family present, All needs met and within reach, Call light/pull cord in reach, Chair alarm applied, Fall mats in place, Feet elevated, Yellow non slip socks donned If this patient discharges prior to next therapy session, this note serves as the patient's discharge summary. Electronically signed by FERNANDO Davenport/Harman - 03/03/2025 - 3:33 PM EDT OT Evaluation Completed * Nancy Bang PA-C - 03/03/2025 7:10 AM EDT [facility] NEUROSURGERY PROGRESS NOTE Subjective Patient reports her pain is located between shoulder blades and shoulders. Medication is taking edge off pain. Physical Exam Blood pressure 114/57, pulse 72, temperature 98.9 ??F (37.2 ??C), temperature source Oral, resp. rate 18, weight 75.3 kg (166 lb), SpO2 98%. AAOx3 NAD, lying in bed 5/5 strength to bilateral upper extremities Incision clean, dry and intact. Covered with dressing. Drain in place with recorded output of 50cc yesterday and 210cc overnight Labs Results for orders placed or performed during the hospital encounter of 03/02/25 (from the past 24 hours) Basic Metabolic Panel Status: Abnormal Collection Time: 03/02/25 5:41 PM Result Value Ref Range Sodium 142 136 - 145 meq/L Potassium 4.4 3.4 - 5.1 meq/L CO2 18 (L) 22 - 29 meq/L Chloride 109 98 - 112 meq/L Glucose 109 82 - 115 mg/dL BUN 21.3 (H) 9.8 - 20.1 mg/dL Creatinine 1.38 (H) 0.57 - 1.11 mg/dL BUN/Creatinine 15 8 - 20 Calcium 9.3 8.4 - 10.2 mg/dL Anion Gap 19 (H) 4 - 12 eGFR (mL/min/1.73m2) 40 (L) >=60 mL/min/1.73m2 Osmolality Calc 286.8 mOsm/kg Glucose, Nova Meter Status: Abnormal Collection Time: 03/02/25 8:28 PM Result Value Ref Range POC-GLUCOSE 131 (H) 70 - 110 mg/dL [facility] Collector [id number] CBC (Hemogram only) Status: Abnormal Collection Time: 03/03/25 2:36 AM Result Value Ref Range WBC 9.9 4.0 - 10.0 K/??L RBC 3.74 (L) 3.93 - 5.22 M/??L Hemoglobin 11.4 11.2 - 15.7 GM/DL Hematocrit 34.8 34.1 - 44.9 % MCV 93 79 - 95 fL MCH 30.5 25.6 - 32.2 pg MCHC 32.8 32.2 - 35.5 GM/DL RDW 14.0 11.7 - 14.4 % Platelets 172 140 - 375 K/CU MM MPV 12.0 9.4 - 12.3 fL Basic Metabolic Panel Status: Abnormal Collection Time: 03/03/25 2:36 AM Result Value Ref Range Sodium 141 136 - 145 meq/L Potassium 5.0 3.4 - 5.1 meq/L CO2 21 (L) 22 - 29 meq/L Chloride 109 98 - 112 meq/L Glucose 125 (H) 82 - 115 mg/dL BUN 18.9 9.8 - 20.1 mg/dL Creatinine 1.40 (H) 0.57 - 1.11 mg/dL BUN/Creatinine 14 8 - 20 Calcium 8.9 8.4 - 10.2 mg/dL Anion Gap 16 (H) 4 - 12 eGFR (mL/min/1.73m2) 39 (L) >=60 mL/min/1.73m2 Osmolality Calc 285.0 mOsm/kg Glucose, Nova Meter Status: Abnormal Collection Time: 03/03/25 5:39 AM Result Value Ref Range POC-GLUCOSE 130 (H) 70 - 110 mg/dL Ant[facility] Collector [id number] Glucose, Nova Meter Status: None Collection Time: 03/03/25 10:35 AM Result Value Ref Range POC-GLUCOSE 104 70 - 110 mg/dL Antique Collector [id number] FL C-ARM < 1 HOUR Narrative: FLUOROSCOPY WITH FILMS HISTORY: C3-5 PCF Fluoroscopic guidance was provided under the direction of the clinical service for intraoperative procedure. 2 digital spot radiographs were obtained for cervical fusion. Fluoroscopy time was 0.19 minutes. RADIATION DOSE: Reference air kerma 2 mGy. Impression: Please see postoperative report. Images reviewed, interpreted, and dictated by Dr. Aneesh Castillo. Transcribed by Maoc Malni PA-C. Assessment POD 1 C3-5 PCF Plan PT/OT Lovenox for DVT PPX Drain to remain in place Cervical collar to remain in place OOB TID Bowel regimen CM consulted for rehab placement. Cosigned by Julio César Carvajal MD at 03/16/2025 9:31 AM EDT * Chaplain Jennifer - 03/02/2025 6:32 AM EDT Spiritual Care Progress Note Surgery referral Provided pre-surgery visit and prayer with patient and daughter. Chaplain Jennifer 03/02/2025 7:25 AM documented in this encounter H&P Notes * Leslie Virgen PA-C - 03/02/2025 7:46 AM EDT H&P History Of Present Illness Lavinia Iyer is a 74 y.o. female with pertinent PMH of HTN, DM II, CKD, CAD, and cervical myelopathy. Pt has been experiencing neck pain and right arm numbness. Per Neurosurgery office note : MRI from 01/27/25 with severe cervical stenosis worse at C3-4 as well as C4-5 with cord compression secondary to annular bulging and ligamentous hypertrophy. Patient has been conservatively managed but continues to have pain which is negatively impacting activities of daily living. This morning the patientdenies any acute issues. No f/c/s. No cp, soa. Patient was evaluated by Dr. Carvajal and presents today for an elective C3- C5 posterior cervical fusion and other levels to be determines with neuromonito ring. Past Medical History She has a past [...] nostril, As needed bisoprolol (ZEBETA) 5 mg, Daily hydrOXYzine pamoate (VISTARIL) 25 mg, Every Night levothyroxine (SYNTHROID) 112 mcg, Daily (0600) losartan-hydrochlorothiazide (HYZAAR) 50-12.5 mg per tablet 1 tablet, oral, Daily meclizine (ANTIVERT) 25 mg, As needed ondansetron (ZOFRAN) 4 mg, Every 8 hours PRN Ozempic 2 mg, Every 7 days Plavix 75 mg, oral, Daily spironolactone (ALDACTONE) 25 mg, Daily Review of Systems 14 point ROS completed and non-contributory except as listed above Physical Exam Blood pressure (!) 151/77, pulse 71, temperature 97.8 ??F (36.6 ??C), temperature source Temporal Artery, resp. rate 15, weight 75.3 kg (166 lb). GEN: Alert, awake, NAD HEENT: NCAT, no icterus, no thrush, nares patent, CV: S1S2, no murmur. No LE edema Resp: CTAB, NL Abd: Soft, NT, ND +BS Skin: no rashes on inspection and palpation. Ext: No LE edema. No joint edema, erythema. Neuro: A&O x 3, CN grossly intact Diagnostic Results Admission on 03/02/2025 Component Date Value Ref Range Status POC-GLUCOSE 03/02/2025 108 70 - 110 mg/dL Final Antique Collector 03/02/2025 [id number] Final No image results found. Assessment & Plan Disease of spinal cord -to OR for scheduled procedure XIN, at risk History of breast cancer Hypertension Hypothyroidism History of NV (myocardial infarction) Coronary atherosclerosis of [place] coronary artery s/p stents - on plavix, last dose on 02/16/2025 Diabetes mellitus, type II - on Ozempic, last dose on 02/15/2025 CKD (chronic kidney disease), stage III Electronically signed by: Leslie Virgen PA-C, 03/02/2025 Cosigned by Julio César Carvajal MD at 03/02/2025 1:07 PM EDT documented in this encounter Consult Notes * Valencia Harmon MD - 03/02/2025 4:31 PM EDT [facility] ADMITT[facility] H&P: PCP: Krishan Caldwell MD Date of Admission: 03/02/2025 ASSESSMENT and PLAN: Lavinia Iyer is a 74 y.o. female with a history of HTN, DM II, CKD, CAD, and cervical myelopathy and other chronic medical history see below who presented on 03/02/2025 with elective C3-C5 posterior cervical fusion. DIAGNOSIS: Cervical myelopathy S/p C3/4, C4/5 posterolateral instrumentation and arthrodesis C3/4, C4/5 laminectomies on 03/02 History of breast cancer Hypertension Hypothyroidism History of NV (myocardial infarction) Coronary atherosclerosis of [place] coronary artery s/p stents Diabetes mellitus, type II CKD (chronic kidney disease), stage III XIN DVT Prophylaxis: lovenox per NS CODE STATUS : full PLAN: Observation patient to hospital tonight Pain control with oxycodone and Dilaudid as needed Insulin sliding scale Continue Synthroid Continue Aldactone and losartan for BP control DVT GI prophylaxis Continue Lipitor CBC BMP ordered in the morning Will start PT OT evaluation Follow neurosurgeon for further discharge planning Discussed with the patient also her family in room Previous Living Condition: Home Expected Disposition: TBD Expected Discharge Date: TBD Chief Complaints Postsurgical medical management History Of Present Illness Lavinia Iyer is a 74 y.o. female with pertinent PMH of HTN, DM II, CKD, CAD, and cervical myelopathy. Pt has been experiencing neck pain and right arm numbness. Per Neurosurgery office note : MRI from 01/27/25 with severe cervical stenosis worse at C3-4 as well as C4-5 with cord compression secondary to annular bulging and ligamentous hypertrophy. Patient has been conservatively managed but continues to have pain which is negatively impacting activities of daily living. This morning the patientdenies any acute issues. No f/c/s. No cp, soa. Patient was evaluated by Dr. Carvajal and presents today for an elective C3- C5 posterior cervical fusion and other levels to be determines with neuromonito ring. I saw patient in the room after she had a surgery in the family room patient still sleepy no fever no chest pain no trouble breathing. Review of Systems 10 point review of systems performed and is negative unless noted and documented in HPI and past medical history. Past Medical History Past Medical History: Diagnosis Date Arthritis Cancer (HCC) breast Coronary artery disease 5 stents Diabetes mellitus (HCC) Hypertension PONV (postoperative nausea and vomiting) Thyroid disease Social History reports that she has never smoked. She has never used smokeless tobacco. She reports that she does not drink alcohol and does not use drugs. Family History HTN Allergies Niacin Home Medications Current Outpatient Medications Medication Instructions acetaminophen (TYLENOL EXTRA STRENGTH) 1,000 mg, oral, Daily aspirin 81 mg, oral, Daily atorvastatin (LIPITOR) 40 mg, oral, Every Night azelastine (ASTELIN) 137 mcg (0.1 %) nasal spray 1 spray, each nostril, As needed bisoprolol (ZEBETA) 5 mg, Daily hydrOXYzine pamoate (VISTARIL) 25 mg, Every Night levothyroxine (SYNTHROID) 112 mcg, Daily (0600) losartan-hydroCHLOROthiazide (HYZAAR) 100-25 mg per tablet 1 tablet, oral, Daily meclizine (ANTIVERT) 25 mg, As needed ondansetron (ZOFRAN) 4 mg, Every 8 hours PRN Ozempic 2 mg, Every 7 days Plavix 75 mg, oral, Daily spironolactone (ALDACTONE) 25 mg, Daily Physical Exam Vitals: 03/02/25 1205 BP: 127/63 Pulse: 65 Resp: 16 Temp: SpO2: 100% General: Looks comfortable and still lethargic after surgery HEENT: Head atraumatic, normal cephalic. Pupil bilateral equal and reacting. Neck: Supple. No JVD noted CVS: S1, S2, no S3 or S4. Regular rate and rhythm no murmur. Lungs: Bilateral air entry. Normal chest expansion. Mild rhonchi bilaterally. Abdomen: Soft. Nontender. Positive bowel sounds. HYDROMETER TESTER: Still lethargic after surgery no follow command Musculoskeletal: Range of motion is normal. No pedal edema. Skin: Warm and dry on exposed surface. Labs & Imaging Recent Results (from the past 24 hours) Type and Screen Collection Time: 03/02/25 6:59 AM Result Value Ref Range ABO/Rh O Negative Antibody Screen Negative HISTCHK HIST CHECK PERFORMED Glucose, Nova Meter Collection Time: 03/02/25 7:02 AM Result Value Ref Range POC-GLUCOSE 108 70 - 110 mg/dL [facility] Collector [id number] Glucose, Nova Meter Collection Time: 03/02/25 10:34 AM Result Value Ref Range POC-GLUCOSE 100 70 - 110 mg/dL Ant[facility] Collector [id number] FL C-ARM < 1 HOUR Result Date: 03/02/2025 FLUOROSCOPY WITH FILMS HISTORY: C3-5 PCF Fluoroscopic guidance was provided under the direction of the clinical service for intraoperative procedure. 2 digital spot radiographs were obtained for cervical fusion. Fluoroscopy time was 0.19 minutes. RADIATION DOSE: Reference air kerma 2 mGy. Please see postoperative report. Images reviewed, interpreted, and dictated by Dr. Aneesh Castillo. Transcribed by Maco Malin PA-C. This patient is expected to need 2 midnights or greater length of stay due to medical issues and acute problems mentioned above . Electronically signed by: Valencia Harmon MD, 03/02/2025 at 4:31 PM EDT documented in this encounter OR Notes * Op Note - Julio César Carvajal MD - 03/02/2025 10:09 AM EDT Date: 03/02/25 Procedures: Procedure(s): C3/4, C4/5 posterolateral instrumentation and arthrodesis C3/4, C4/5 laminectomies Use of local autograft Use of osteopromotive allograft IN 0530, 2HRS(A), PASS Diagnosis: Post-op Diagnosis * Disease of spinal cord (HCC) [G95.9] Indications: Lavinia Iyer is an 74 y.o. female who presents for C3-5 PCF. She was seen in clinic recently with several months of significantly progressive cervical myelopathic symptoms. Imaging revealed diffuse degenerative changes with severe stenosis C3/4 as well as stenosis at C4/5 with cord compression. There was multilevel spondylolisthesis, however no instability was seen at the other levels. The risks, benefits, and alternatives of the above procedure were discussed and the patient has elected to proceed. Surgeons: Surgeons and Role: * Julio César Carvajal MD - Primary Assist: Nancy Bang Findings: C3-5 decompression and instrumentation as above Procedure Details: Patient was identified by name and medical record number and brought to the operating room. The patient was placed under general endotracheal anesthesia by the anesthesia team. The neuro monitoring system was set up by a certified pest control technician. Baseline MEPs and SSEPs were performed. A Swan head clamp was then placed, and the patient was moved onto the operating room table in the prone position. The headclamp was then rigidly fixed to the bed in the neutral position. All bony prominences were well-padded. After final positioning, repeat MEP and SSEP showed no significant changes. A small portion of the lower occipital area was shaven, and the posterior occipital cervical area was cleaned thoroughly. The patient was then prepped and draped in the usual sterile fashion. A timeout was performed, verifying the correct patient, site, and procedure. X-ray was used to localize and plan a linear incision over the C3-5 levels. Local anesthetic was injected along the planned incision site. The incision was opened sharply. Dissection was carried down using monopolar electrocautery throughthe nuchal ligament and avascular plane. Subperiosteal dissection was then performed along the underlying spinous processes and lamina of the planned levels. Care was taken to avoid transgression of the adjacent facets. Starting points were identified over the lateral masses of the C3-5 levels bilaterally. The drill was then used to create 12 mm boat pilot holes bilaterally. The holes were probed and drilled to 14 mm after confirming no breach was present. They were probed again, and appropriately sized lateral mass screws were placed. The left C5/6 facet was quite overgrown, causing some interference with the correct angulation to place the C5 lateral mass screw. In an effort to preserve the C5/6 facet, the left C5 lateral mass screw was placed closer to the C4/5 facet than I typically would.After placement, the screw was challenged and was felt to have good purchase. Screw sizes used: C3: 3.5 x 14 mm bilaterally C4: 3.5 x 14 bilaterally C5: 3.5 x 14 bilaterally X-rays were taken to reveal appropriate hardware placement. The drill was then used to create troughs bilaterally just medial to the laminofacet groove, and the laminectomies were performed en bloc. Residual ligament and bone were removed using Kerrison rongeurs to ensure adequate decompression. All bone was saved to use as local autograft. After complete decompression, meticulous hemostasis was achieved. Two appropriately sized lordotic rods were placed over the screw heads, and the setscrews were applied. The setscrews were then final tightened. The wound was copiously irrigated. The lateral masses of the instrumented levels decorticated with the drill, and local autograft bone mixed withViviGen was placed lateral to the screw heads bilaterally. A 7 [place] flat Avila-Cortez drain was then placed in the subfascial space and tunneled away from the incision. This was secured in place with a 2-0 nylon suture. The paraspinous muscles were reapproximated using 0 Vicryl sutures in an interrupted fashion. The fascia was closed using 0 Vicryl sutures in an interrupted fashion. The remainder of the wound was closed in multiple layers using 2-0 Vicryl sutures in an interrupted fashion. The skin was then closed using 3-0 Monocryl in a running subcuticular fashion. Skin glue was then applied. All instrument and needle counts were correct at the end of the case. Final MEP and SSEP showed no significant changes compared to baseline. Anesthesia: General Estimated Blood Loss: 200 cc Drains: * No LDAs found * Specimens: Specimens (From admission, onward) None Complications: None * No complications entered in OR log * Disposition: PACU - hemodynamically stable. Condition: stable Attending Attestation: I was present and scrubbed for the entire procedure. documented in this encounter Miscellaneous Notes * Plan of Care - Marita Turcios RN - 03/05/2025 10:42 AM EDT Problem: Knowledge Deficit Goal: Patient/family/caregiver demonstrates understanding of disease process, treatment plan, medications, and discharge instructions Description: Complete learning assessment and assess knowledge base. Outcome: Progressing Problem: Potential for Falls Goal: Patient will remain free of falls Description: Assess and monitor vitals signs, neurological status including level of consciousness and orientation. Reassess fall risk per hospital policy. Ensure arm band on, uncluttered walking paths in room, adequate room lighting, call light and overbed table within reach, bed in low position, wheels locked, side rails up per policy, and non-skid footwear provided. Outcome: Progressing Problem: Compromised Skin Integrity Goal: LTG - Patient will be free from infection Outcome: Progressing Goal: LTG - Patient will maintain/improve skin integrity through proper skin care techniques Outcome: Progressing Goal: LTG - Patient will demonstrate appropriate pressure relief techniques Outcome: Progressing Goal: LTG - Patient will demonstrate appropriate skin care techniques Outcome: Progressing Goal: LTG - Patient will be free from infection Outcome: Progressing Goal: STG - Patient demonstrates skin care/treatment/dressing change Outcome: Progressing Goal: STG - Patient will maintain good skin integrity Outcome: Progressing Goal: STG - Patient exhibits signs of wound healing. Outcome: Progressing Goal: STG - Patient demonstrates pressure reduction techniques Outcome: Progressing Goal: STG - Patient demonstrates preventative skin care measures Outcome: Progressing Problem: Risk for Falls Goal: No falls during hospitalization Description: Patient will not fall during hospitalization. Outcome: Progressing Problem: Knowledge Deficit Goal: Knowledge - personal safety Description: Patient will verbalize understanding of fall prevention. Outcome: Progressing Problem: Potential for Infection Goal: Remains infection free Description: Assess and monitor vital signs, skin (color, moisture, integrity, turgor), respiratorystatus, urinary and gastrointestinal status, and labs (WBC, cultures). Administer antibiotics and antipyretics as ordered. Ensure aseptic care of all intravenous lines, invasive tubes/drains and wounds. Monitor for signs and symptoms of infection (redness, warmth, discharge, increased body temperature). Wash hands properly before and after each patient care activity. Follow isolation guidelines per hospital protocol/policy. Collaborate with interdisciplinary team and initiate plan and interventions as ordered. Outcome: Progressing Problem: Inadequate Airway Clearance Goal: Patient will maintain patent airway Description: Assess and monitor breath sounds, cough and sputum (if present), and intake/output. Collaborate with respiratory therapy to administer medications and treatments. Outcome: Progressing Goal: Patient will achieve/maintain normal respiratory rate/effort Description: Assess and monitor respiratory rate, effort, breathing pattern and oxygenation as ordered or per policy. Monitor patient for restlessness, anxiety, air hunger. Assess physical activity tolerance. Assess patient's smoking history and intervene per policy. Collaborate with interdisciplinary team and initiate plans and interventions as needed. Outcome: Progressing Problem: Inadequate Breathing Pattern Goal: Patient will maintain effective ventilation Description: Assess and monitor vital signs, respiratory status (to include respiratory rate, depth, effort, and breath sounds), oxygen saturation, oral mucosa, tongue, pain, and labs (ABGs). Collaborate with interdisciplinary team and initiate plans and interventions as needed. Outcome: Progressing Problem: Insufficient Fluid Volume Goal: Fluid and electrolyte balance are achieved/maintained Description: Assess and monitor vital signs (orthostatic vitals if applicable), fluid intake and output, urine color, labs, skin turgor, mucous membranes, mental status, and gastrointestinal system for nausea, vomiting and diarrhea. Monitor for signs and symptoms of hypovolemia (tachycardia, rapid breathing, decreased urine output, postural hypotension, confusion, syncope). Collaborate with interdisciplinary team and initiate plan and interventions as ordered. Outcome: Progressing Problem: Insufficient Nutritional Intake Goal: Patient's nutritional intake is adequate Description: Assess and monitor food intake and supplements, patient food preferences, nausea, vomiting, labs, oral cavity (gums, teeth, tongue, mucosa), proper denture fit, and cultural beliefs. Monitor for signs of hypoglycemia and hyperglycemia. Collaborate with interdisciplinary team and initiate plan and interventions as ordered. Outcome: Progressing Goal: Mobility/activity is maintained at optimum level for patient Description: Assess and monitor patient barriers to mobility and need for assistive/adaptive devices. Assess patient's emotional response to limitations. Collaborate with interdisciplinary team and initiate plans and interventions as ordered. Outcome: Progressing Problem: Inadequate Tissue Perfusion - Venous Goal: Tissue perfusion is adequate - venous Description: Assess and monitor skin color and temperature, skin integrity, pulses, capillary refill, edema, pain in extremities, Homans' sign, labs (D- dimer), and diagnostic tests (ultrasound, CT scan, VQ scan). Monitor for signs and symptoms of deep vein thrombosis (swelling of calf/thigh, redness, pain, tenderness). Monitor for signs and symptoms of pulmonary embolism (dyspnea, tachypnea, tachycardia). Collaborate with interdisciplinary team and initiate plans and interventions as needed. Outcome: Progressing Problem: Activity Intolerance/Impaired Mobility Goal: Mobility/activity is maintained at optimum level for patient Description: Assess and monitor patient barriers to mobility and need for assistive/adaptive devices. Assess patient's emotional response to limitations. Collaborate with interdisciplinary team and initiate plans and interventions as ordered. Outcome: Progressing Problem: Altered Body Image Goal: Verbalizes feelings about physical appearance Description: Assess the patient's feelings about their physical appearance, how it will effect their lifestyle, sexuality, and relationships with family and friends. Collaborate with interdisciplinary team and initiate plan and interventions as ordered. Outcome: Progressing Problem: Pain Management Goal: Patient return to pre procedure comfort Outcome: Progressing Problem: Hemodynamic Status Goal: Patient's vitals signs are stable Description: Assess and monitor patient's heart rate, rhythm, respiratory rate, peripheral pulses, capillary refill, color, body temperature, intake and output, labs and physical activity tolerance. Observe for signs of chest pain (note location, duration, severity, radiation and associated symptoms such as diaphoresis, nausea, indigestion). Monitor for signs and symptoms of heart failure (eg. shortness of breath, edema of feet/ankles/legs, rapid irregular heart rate, coughing, wheezing, white/pink blood tinged sputum, sudden weight gain, chest pain). Collaborate with interdisciplinary team and initiate plan and interventions as ordered. Outcome: Progressing Problem: Inadequte temperature regulation Goal: Body temperature is within normal range Outcome: Progressing Problem: Safety Goal: Free from accidental physical injury Outcome: Progressing Goal: Free from abuse Outcome: Progressing Problem: Elimination Goal: Elimination patterns are normal or improving Description: Assess and monitor vital signs, gastrointestinal assessment to include bowel sounds, color, appearance, frequency, and amount of stool and emesis, abdominal distention and discomfort, intake and output, and labs. Collaborate with interdisciplinary team and initiate plan and interventions as ordered. Outcome: Progressing Problem: Increased Risk for /GI Compromise Goal: Optimal /GI status Outcome: Progressing Problem: Bleeding Precautions Goal: Excessive bleeding will be minimized Outcome: Progressing * Plan of Care - Neelima Maravillad - 03/05/2025 5:27 AM EDT Problem: Knowledge Deficit Goal: Patient/family/caregiver demonstrates understanding of disease process, treatment plan, medications, and discharge instructions Description: Complete learning assessment and assess knowledge base. Outcome: Progressing Problem: Potential for Falls Goal: Patient will remain free of falls Description: Assess and monitor vitals signs, neurological status including level of consciousness and orientation. Reassess fall risk per hospital policy. Ensure arm band on, uncluttered walking paths in room, adequate room lighting, call light and overbed table within reach, bed in low position, wheels locked, side rails up per policy, and non-skid footwear provided. Outcome: Progressing Problem: Compromised Skin Integrity Goal: LTG - Patient will be free from infection Outcome: Progressing Goal: LTG - Patient will maintain/improve skin integrity through proper skin care techniques Outcome: Progressing Goal: LTG - Patient will demonstrate appropriate pressure relief techniques Outcome: Progressing Goal: LTG - Patient will demonstrate appropriate skin care techniques Outcome: Progressing Goal: LTG - Patient will be free from infection Outcome: Progressing Goal: STG - Patient demonstrates skin care/treatment/dressing change Outcome: Progressing Goal: STG - Patient will maintain good skin integrity Outcome: Progressing Goal: STG - Patient exhibits signs of wound healing. Outcome: Progressing Goal: STG - Patient demonstrates pressure reduction techniques Outcome: Progressing Goal: STG - Patient demonstrates preventative skin care measures Outcome: Progressing Problem: Risk for Falls Goal: No falls during hospitalization Description: Patient will not fall during hospitalization. Outcome: Progressing Problem: Knowledge Deficit Goal: Knowledge - personal safety Description: Patient will verbalize understanding of fall prevention. Outcome: Progressing Problem: Potential for Infection Goal: Remains infection free Description: Assess and monitor vital signs, skin (color, moisture, integrity, turgor), respiratorystatus, urinary and gastrointestinal status, and labs (WBC, cultures). Administer antibiotics and antipyretics as ordered. Ensure aseptic care of all intravenous lines, invasive tubes/drains and wounds. Monitor for signs and symptoms of infection (redness, warmth, discharge, increased body temperature). Wash hands properly before and after each patient care activity. Follow isolation guidelines per hospital protocol/policy. Collaborate with interdisciplinary team and initiate plan and interventions as ordered. Outcome: Progressing Problem: Inadequate Airway Clearance Goal: Patient will maintain patent airway Description: Assess and monitor breath sounds, cough and sputum (if present), and intake/output. Collaborate with respiratory therapy to administer medications and treatments. Outcome: Progressing Goal: Patient will achieve/maintain normal respiratory rate/effort Description: Assess and monitor respiratory rate, effort, breathing pattern and oxygenation as ordered or per policy. Monitor patient for restlessness, anxiety, air hunger. Assess physical activity tolerance. Assess patient's smoking history and intervene per policy. Collaborate with interdisciplinary team and initiate plans and interventions as needed. Outcome: Progressing Problem: Inadequate Breathing Pattern Goal: Patient will maintain effective ventilation Description: Assess and monitor vital signs, respiratory status (to include respiratory rate, depth, effort, and breath sounds), oxygen saturation, oral mucosa, tongue, pain, and labs (ABGs). Collaborate with interdisciplinary team and initiate plans and interventions as needed. Outcome: Progressing Problem: Insufficient Fluid Volume Goal: Fluid and electrolyte balance are achieved/maintained Description: Assess and monitor vital signs (orthostatic vitals if applicable), fluid intake and output, urine color, labs, skin turgor, mucous membranes, mental status, and gastrointestinal system for nausea, vomiting and diarrhea. Monitor for signs and symptoms of hypovolemia (tachycardia, rapid breathing, decreased urine output, postural hypotension, confusion, syncope). Collaborate with interdisciplinary team and initiate plan and interventions as ordered. Outcome: Progressing Problem: Insufficient Nutritional Intake Goal: Patient's nutritional intake is adequate Description: Assess and monitor food intake and supplements, patient food preferences, nausea, vomiting, labs, oral cavity (gums, teeth, tongue, mucosa), proper denture fit, and cultural beliefs. Monitor for signs of hypoglycemia and hyperglycemia. Collaborate with interdisciplinary team and initiate plan and interventions as ordered. Outcome: Progressing Goal: Mobility/activity is maintained at optimum level for patient Description: Assess and monitor patient barriers to mobility and need for assistive/adaptive devices. Assess patient's emotional response to limitations. Collaborate with interdisciplinary team and initiate plans and interventions as ordered. Outcome: Progressing Problem: Inadequate Tissue Perfusion - Venous Goal: Tissue perfusion is adequate - venous Description: Assess and monitor skin color and temperature, skin integrity, pulses, capillary refill, edema, pain in extremities, Homans' sign, labs (D- dimer), and diagnostic tests (ultrasound, CT scan, VQ scan). Monitor for signs and symptoms of deep vein thrombosis (swelling of calf/thigh, redness, pain, tenderness). Monitor for signs and symptoms of pulmonary embolism (dyspnea, tachypnea, tachycardia). Collaborate with interdisciplinary team and initiate plans and interventions as needed. Outcome: Progressing Problem: Activity Intolerance/Impaired Mobility Goal: Mobility/activity is maintained at optimum level for patient Description: Assess and monitor patient barriers to mobility and need for assistive/adaptive devices. Assess patient's emotional response to limitations. Collaborate with interdisciplinary team and initiate plans and interventions as ordered. Outcome: Progressing Problem: Altered Body Image Goal: Verbalizes feelings about physical appearance Description: Assess the patient's feelings about their physical appearance, how it will effect their lifestyle, sexuality, and relationships with family and friends. Collaborate with interdisciplinary team and initiate plan and interventions as ordered. Outcome: Progressing Problem: Pain Management Goal: Patient return to pre procedure comfort Outcome: Progressing Problem: Hemodynamic Status Goal: Patient's vitals signs are stable Description: Assess and monitor patient's heart rate, rhythm, respiratory rate, peripheral pulses, capillary refill, color, body temperature, intake and output, labs and physical activity tolerance. Observe for signs of chest pain (note location, duration, severity, radiation and associated symptoms such as diaphoresis, nausea, indigestion). Monitor for signs and symptoms of heart failure (eg. shortness of breath, edema of feet/ankles/legs, rapid irregular heart rate, coughing, wheezing, white/pink blood tinged sputum, sudden weight gain, chest pain). Collaborate with interdisciplinary team and initiate plan and interventions as ordered. Outcome: Progressing Problem: Inadequte temperature regulation Goal: Body temperature is within normal range Outcome: Progressing Problem: Safety Goal: Free from accidental physical injury Outcome: Progressing Goal: Free from abuse Outcome: Progressing Problem: Elimination Goal: Elimination patterns are normal or improving Description: Assess and monitor vital signs, gastrointestinal assessment to include bowel sounds, color, appearance, frequency, and amount of stool and emesis, abdominal distention and discomfort, intake and output, and labs. Collaborate with interdisciplinary team and initiate plan and interventions as ordered. Outcome: Progressing Problem: Increased Risk for /GI Compromise Goal: Optimal /GI status Outcome: Progressing Problem: Bleeding Precautions Goal: Excessive bleeding will be minimized Outcome: Progressing * Plan of Care - Marita Turcios RN - 03/04/2025 10:28 AM EDT Problem: Knowledge Deficit Goal: Patient/family/caregiver demonstrates understanding of disease process, treatment plan, medications, and discharge instructions Description: Complete learning assessment and assess knowledge base. 03/04/2025 1028 by Marita Turcios RN Outcome: Progressing 03/04/2025 1028 by Marita Turcios RN Outcome: Progressing Problem: Potential for Falls Goal: Patient will remain free of falls Description: Assess and monitor vitals signs, neurological status including level of consciousness and orientation. Reassess fall risk per hospital policy. Ensure arm band on, uncluttered walking paths in room, adequate room lighting, call light and overbed table within reach, bed in low position, wheels locked, side rails up per policy, and non-skid footwear provided. 03/04/2025 1028 by Marita Turcios RN Outcome: Progressing 03/04/2025 1028 by Marita Turcios RN Outcome: Progressing Problem: Compromised Skin Integrity Goal: LTG - Patient will be free from infection 03/04/2025 1028 by Marita Turcios RN Outcome: Progressing 03/04/2025 1028 by Marita Turcios RN Outcome: Progressing Goal: LTG - Patient will maintain/improve skin integrity through proper skin care techniques 03/04/2025 1028 by Marita Turcios RN Outcome: Progressing 03/04/2025 1028 by Marita Turcios RN Outcome: Progressing Goal: LTG - Patient will demonstrate appropriate pressure relief techniques 03/04/2025 1028 by Marita Turcios RN Outcome: Progressing 03/04/2025 1028 by Marita Turcios RN Outcome: Progressing Goal: LTG - Patient will demonstrate appropriate skin care techniques 03/04/2025 1028 by Marita Turcios RN Outcome: Progressing 03/04/2025 1028 by Marita Turcios RN Outcome: Progressing Goal: LTG - Patient will be free from infection 03/04/2025 1028 by Marita Turcios RN Outcome: Progressing 03/04/2025 1028 by Mraita Turcios RN Outcome: Progressing Goal: STG - Patient demonstrates skin care/treatment/dressing change 03/04/2025 1028 by Marita Turcios RN Outcome: Progressing 03/04/2025 1028 by Marita Turcios RN Outcome: Progressing Goal: STG - Patient will maintain good skin integrity 03/04/2025 1028 by Marita Turcios RN Outcome: Progressing 03/04/2025 1028 by Marita Turcios RN Outcome: Progressing Goal: STG - Patient exhibits signs of wound healing. 03/04/2025 1028 by Marita Turcios RN Outcome: Progressing 03/04/2025 1028 by Marita Turcios RN Outcome: Progressing Goal: STG - Patient demonstrates pressure reduction techniques 03/04/2025 1028 by Marita Turcios RN Outcome: Progressing 03/04/2025 1028 by Marita Turcios RN Outcome: Progressing Goal: STG - Patient demonstrates preventative skin care measures 03/04/2025 1028 by Marita Turcios RN Outcome: Progressing 03/04/2025 1028 by Marita Turcios RN Outcome: Progressing Problem: Risk for Falls Goal: No falls during hospitalization Description: Patient will not fall during hospitalization. 03/04/2025 1028 by Marita Turcios RN Outcome: Progressing 03/04/2025 1028 by Marita Turcios RN Outcome: Progressing Problem: Knowledge Deficit Goal: Knowledge - personal safety Description: Patient will verbalize understanding of fall prevention. 03/04/2025 1028 by Marita Turcios RN Outcome: Progressing 03/04/2025 1028 by Marita Turcios RN Outcome: Progressing Problem: Potential for Infection Goal: Remains infection free Description: Assess and monitor vital signs, skin (color, moisture, integrity, turgor), respiratorystatus, urinary and gastrointestinal status, and labs (WBC, cultures). Administer antibiotics and antipyretics as ordered. Ensure aseptic care of all intravenous lines, invasive tubes/drains and wounds. Monitor for signs and symptoms of infection (redness, warmth, discharge, increased body temperature). Wash hands properly before and after each patient care activity. Follow isolation guidelines per hospital protocol/policy. Collaborate with interdisciplinary team and initiate plan and interventions as ordered. Outcome: Progressing Problem: Inadequate Airway Clearance Goal: Patient will maintain patent airway Description: Assess and monitor breath sounds, cough and sputum (if present), and intake/output. Collaborate with respiratory therapy to administer medications and treatments. Outcome: Progressing Goal: Patient will achieve/maintain normal respiratory rate/effort Description: Assess and monitor respiratory rate, effort, breathing pattern and oxygenation as ordered or per policy. Monitor patient for restlessness, anxiety, air hunger. Assess physical activity tolerance. Assess patient's smoking history and intervene per policy. Collaborate with interdisciplinary team and initiate plans and interventions as needed. Outcome: Progressing Problem: Inadequate Breathing Pattern Goal: Patient will maintain effective ventilation Description: Assess and monitor vital signs, respiratory status (to include respiratory rate, depth, effort, and breath sounds), oxygen saturation, oral mucosa, tongue, pain, and labs (ABGs). Collaborate with interdisciplinary team and initiate plans and interventions as needed. Outcome: Progressing Problem: Insufficient Fluid Volume Goal: Fluid and electrolyte balance are achieved/maintained Description: Assess and monitor vital signs (orthostatic vitals if applicable), fluid intake and output, urine color, labs, skin turgor, mucous membranes, mental status, and gastrointestinal system for nausea, vomiting and diarrhea. Monitor for signs and symptoms of hypovolemia (tachycardia, rapid breathing, decreased urine output, postural hypotension, confusion, syncope). Collaborate with interdisciplinary team and initiate plan and interventions as ordered. Outcome: Progressing Problem: Insufficient Nutritional Intake Goal: Patient's nutritional intake is adequate Description: Assess and monitor food intake and supplements, patient food preferences, nausea, vomiting, labs, oral cavity (gums, teeth, tongue, mucosa), proper denture fit, and cultural beliefs. Monitor for signs of hypoglycemia and hyperglycemia. Collaborate with interdisciplinary team and initiate plan and interventions as ordered. Outcome: Progressing Goal: Mobility/activity is maintained at optimum level for patient Description: Assess and monitor patient barriers to mobility and need for assistive/adaptive devices. Assess patient's emotional response to limitations. Collaborate with interdisciplinary team and initiate plans and interventions as ordered. Outcome: Progressing Problem: Inadequate Tissue Perfusion - Venous Goal: Tissue perfusion is adequate - venous Description: Assess and monitor skin color and temperature, skin integrity, pulses, capillary refill, edema, pain in extremities, Homans' sign, labs (D- dimer), and diagnostic tests (ultrasound, CT scan, VQ scan). Monitor for signs and symptoms of deep vein thrombosis (swelling of calf/thigh, redness, pain, tenderness). Monitor for signs and symptoms of pulmonary embolism (dyspnea, tachypnea, tachycardia). Collaborate with interdisciplinary team and initiate plans and interventions as needed. Outcome: Progressing Problem: Activity Intolerance/Impaired Mobility Goal: Mobility/activity is maintained at optimum level for patient Description: Assess and monitor patient barriers to mobility and need for assistive/adaptive devices. Assess patient's emotional response to limitations. Collaborate with interdisciplinary team and initiate plans and interventions as ordered. Outcome: Progressing Problem: Altered Body Image Goal: Verbalizes feelings about physical appearance Description: Assess the patient's feelings about their physical appearance, how it will effect their lifestyle, sexuality, and relationships with family and friends. Collaborate with interdisciplinary team and initiate plan and interventions as ordered. Outcome: Progressing Problem: Pain Management Goal: Patient return to pre procedure comfort Outcome: Progressing Problem: Hemodynamic Status Goal: Patient's vitals signs are stable Description: Assess and monitor patient's heart rate, rhythm, respiratory rate, peripheral pulses, capillary refill, color, body temperature, intake and output, labs and physical activity tolerance. Observe for signs of chest pain (note location, duration, severity, radiation and associated symptoms such as diaphoresis, nausea, indigestion). Monitor for signs and symptoms of heart failure (eg. shortness of breath, edema of feet/ankles/legs, rapid irregular heart rate, coughing, wheezing, white/pink blood tinged sputum, sudden weight gain, chest pain). Collaborate with interdisciplinary team and initiate plan and interventions as ordered. Outcome: Progressing Problem: Inadequte temperature regulation Goal: Body temperature is within normal range Outcome: Progressing Problem: Safety Goal: Free from accidental physical injury Outcome: Progressing Goal: Free from abuse Outcome: Progressing Problem: Elimination Goal: Elimination patterns are normal or improving Description: Assess and monitor vital signs, gastrointestinal assessment to include bowel sounds, color, appearance, frequency, and amount of stool and emesis, abdominal distention and discomfort, intake and output, and labs. Collaborate with interdisciplinary team and initiate plan and interventions as ordered. Outcome: Progressing Problem: Increased Risk for /GI Compromise Goal: Optimal /GI status Outcome: Progressing Problem: Bleeding Precautions Goal: Excessive bleeding will be minimized Outcome: Progressing * Plan of Care - Neelima Love - 03/04/2025 4:56 AM EDT Problem: Knowledge Deficit Goal: Patient/family/caregiver demonstrates understanding of disease process, treatment plan, medications, and discharge instructions Description: Complete learning assessment and assess knowledge base. Outcome: Progressing Problem: Potential for Falls Goal: Patient will remain free of falls Description: Assess and monitor vitals signs, neurological status including level of consciousness and orientation. Reassess fall risk per hospital policy. Ensure arm band on, uncluttered walking paths in room, adequate room lighting, call light and overbed table within reach, bed in low position, wheels locked, side rails up per policy, and non-skid footwear provided. Outcome: Progressing Problem: Compromised Skin Integrity Goal: LTG - Patient will be free from infection Outcome: Progressing Goal: LTG - Patient will maintain/improve skin integrity through proper skin care techniques Outcome: Progressing Goal: LTG - Patient will demonstrate appropriate pressure relief techniques Outcome: Progressing Goal: LTG - Patient will demonstrate appropriate skin care techniques Outcome: Progressing Goal: LTG - Patient will be free from infection Outcome: Progressing Goal: STG - Patient demonstrates skin care/treatment/dressing change Outcome: Progressing Goal: STG - Patient will maintain good skin integrity Outcome: Progressing Goal: STG - Patient exhibits signs of wound healing. Outcome: Progressing Goal: STG - Patient demonstrates pressure reduction techniques Outcome: Progressing Goal: STG - Patient demonstrates preventative skin care measures Outcome: Progressing Problem: Risk for Falls Goal: No falls during hospitalization Description: Patient will not fall during hospitalization. Outcome: Progressing Problem: Knowledge Deficit Goal: Knowledge - personal safety Description: Patient will verbalize understanding of fall prevention. Outcome: Progressing * Plan of Care - Wendy Iniguez RN - 03/02/2025 11:05 PM EDT Problem: Knowledge Deficit Goal: Patient/family/caregiver demonstrates understanding of disease process, treatment plan, medications, and discharge instructions Description: Complete learning assessment and assess knowledge base. Outcome: Progressing Problem: Potential for Falls Goal: Patient will remain free of falls Description: Assess and monitor vitals signs, neurological status including level of consciousness and orientation. Reassess fall risk per hospital policy. Ensure arm band on, uncluttered walking paths in room, adequate room lighting, call light and overbed table within reach, bed in low position, wheels locked, side rails up per policy, and non-skid footwear provided. Outcome: Progressing Problem: Compromised Skin Integrity Goal: LTG - Patient will be free from infection Outcome: Progressing Goal: LTG - Patient will maintain/improve skin integrity through proper skin care techniques Outcome: Progressing Goal: LTG - Patient will demonstrate appropriate pressure relief techniques Outcome: Progressing Goal: LTG - Patient will demonstrate appropriate skin care techniques Outcome: Progressing Goal: LTG - Patient will be free from infection Outcome: Progressing Goal: STG - Patient demonstrates skin care/treatment/dressing change Outcome: Progressing Goal: STG - Patient will maintain good skin integrity Outcome: Progressing Goal: STG - Patient exhibits signs of wound healing. Outcome: Progressing Goal: STG - Patient demonstrates pressure reduction techniques Outcome: Progressing Goal: STG - Patient demonstrates preventative skin care measures Outcome: Progressing Problem: Risk for Falls Goal: No falls during hospitalization Description: Patient will not fall during hospitalization. Outcome: Progressing Problem: Knowledge Deficit Goal: Knowledge - personal safety Description: Patient will verbalize understanding of fall prevention. Outcome: Progressing * Plan of Care - Eleonora Adams - 03/02/2025 1:33 PM EDT Problem: Knowledge Deficit Goal: Patient/family/caregiver demonstrates understanding of disease process, treatment plan, medications, and discharge instructions Description: Complete learning assessment and assess knowledge base. Outcome: Progressing Problem: Potential for Falls Goal: Patient will remain free of falls Description: Assess and monitor vitals signs, neurological status including level of consciousness and orientation. Reassess fall risk per hospital policy. Ensure arm band on, uncluttered walking paths in room, adequate room lighting, call light and overbed table within reach, bed in low position, wheels locked, side rails up per policy, and non-skid footwear provided. Outcome: Progressing Problem: Compromised Skin Integrity Goal: LTG - Patient will be free from infection Outcome: Progressing Goal: LTG - Patient will maintain/improve skin integrity through proper skin care techniques Outcome: Progressing Goal: LTG - Patient will demonstrate appropriate pressure relief techniques Outcome: Progressing Goal: LTG - Patient will demonstrate appropriate skin care techniques Outcome: Progressing Goal: LTG - Patient will be free from infection Outcome: Progressing Goal: STG - Patient demonstrates skin care/treatment/dressing change Outcome: Progressing Goal: STG - Patient will maintain good skin integrity Outcome: Progressing Goal: STG - Patient exhibits signs of wound healing. Outcome: Progressing Goal: STG - Patient demonstrates pressure reduction techniques Outcome: Progressing Goal: STG - Patient demonstrates preventative skin care measures Outcome: Progressing Problem: Risk for Falls Goal: No falls during hospitalization Description: Patient will not fall during hospitalization. Outcome: Progressing Problem: Knowledge Deficit Goal: Knowledge - personal safety Description: Patient will verbalize understanding of fall prevention. Outcome: Progressing documented in this encounter Plan of Treatment Not on file documented as of this encounter Procedures Procedure Name Priority Date/Time Associated Diagnosis Comments NOVA GLUCOSE POC Routine 03/05/2025 10:4 1 AM EDT BASIC METABOLIC PANEL Routine 03/05/2025 9:37 AM EDT NOVA GLUCOSE POC Routine 03/05/2025 5:56 AM EDT NOVA GLUCOSE POC Routine 03/04/2025 9:04 PM EDT NOVA GLUCOSE POC Routine 03/04/2025 4:09 PM EDT NOVA GLUCOSE POC Routine 03/04/2025 10:2 9 AM EDT NOVA GLUCOSE POC Routine 03/04/2025 5:08 AM EDT NOVA GLUCOSE POC Routine 03/03/2025 8:17 PM EDT NOVA GLUCOSE POC Routine 03/03/2025 4:04 PM EDT NOVA GLUCOSE POC Routine 03/03/2025 10:3 5 AM EDT XR SPINE CERVICAL 2 OR 3 VIEWS Routine 03/03/2025 10:06 AM EDT NOVA GLUCOSE POC Routine 03/03/2025 5:39 AM EDT CBC HEMOGRAM (SJ-BKR) Routine 03/03/2025 2:36 AM EDT BASIC METABOLIC PANEL Routine 03/03/2025 2:36 AM EDT NOVA GLUCOSE POC Routine 03/02/2025 8:28 PM EDT BASIC METABOLIC PANEL Routine 03/02/2025 5:41 PM EDT NOVA GLUCOSE POC Routine 03/02/2025 10:3 4 AM EDT FL C-ARM < 1 HOUR Routine 03/02/2025 9:5 6 AM EDT MS ARTHRD PST/PSTLAT TQ [id number] CRV BELW C2 SEGMENT 03/02/2025 7:28 AM EDT Disease of spinal cord (HCC) NOVA GLUCOSE POC Routine 03/02/2025 7:02 AM EDT TYPE AND SCREEN ([place] BKR) Routine 03/02/2025 6:59 AM EDT documented in this encounter Results * (ABNORMAL) Glucose, Nova Meter (03/05/2025 10:41 AM EDT) POC-GLUCOSE 119(H) 70 - 110 mg/dL 03/05/2025 10:43 AM EDT [facility] Comment: In the event of poor peripheral blood flow, venous or arterial blood should be used due to the potential of erroneous results. Notified Nurse RBV Antique Collector [id number] 03/05/2025 10:43 AM EDT [facility] Blood WHOLE BLOOD / Unknown 03/05/2025 10:41 AM EDT 03/05/2025 10:43 AM EDT Narrative [facility] - 03/05/2025 10:43 AM EDT Antique Collector ID is - [id number] us Julio César Carvajal MD POINT OF CARE TEST ORDERABLES Final Result Performing Organization Address City/State/[facility] Co de Phone Number [facility] [address] [phone] * (ABNORMAL) Basic Metabolic Panel (03/05/2025 9:37 AM EDT) Sodium 139 136 - 145 meq/L 03/05/2025 10:33 AM EDT [facility] Potassium 4.4 3.4 - 5.1 meq/L 03/05/2025 10:33 AM EDT [facility] CO2 22 22 - 29 meq/L 03/05/2025 10:33 AM EDT [facility] Chloride 108 98 - 112 meq/L 03/05/2025 10:33 AM EDT [facility] Glucose 139(H) 82 - 115 mg/dL 03/05/2025 10:33 AM EDT [facility] BUN 17.9 9.8 - 20.1 mg/dL 03/05/2025 10:33 AM EDT [facility] Creatinine 1.20(H) 0.57 - 1.11 mg/dL 03/05/2025 10:33 AM EDT [facility] BUN/Creatinine 15 8 - 20 03/05/2025 10:33 AM EDT [facility] Calcium 8.8 8.4 - 10.2 mg/dL 03/05/2025 10:33 AM EDT [facility] Anion Gap 13(H) 4 - 12 03/05/2025 10:33 AM EDT [facility] eGFR (mL/min/1.73m2) 47(L) >=60 mL/min/1.7 3m2 03/05/2025 10:33 AM EDT [facility] Comment:ESTIMATED GFR IS NOT ACCURATE CREATININE CLEARANCE IN PREDICTING GLOMERULAR FILTRATION RATE. ESTIMATED GFR IS NOT APPLICABLE FOR DIALYSIS PATIENTS. Osmolality Calc 281.7 mOsm/kg 10:33 AM EDT [facility] Blood Venipuncture / Unknown 03/05/2025 9:37 AM EDT 03/05/2025 10:10 AM EDT us De Catalan PA-C LAB BLOOD ORDERABLES Final Res ult Performing Organization Address City/[facility]/ZIP Co de Phone Number [facility] [address] [phone] * Glucose, Nova Meter (03/05/2025 5:56 AM EDT) [facility] POC-GLUCOSE 84 70 - 110 mg/dL 03/05/2025 5:57 AM EDT [facility] Comment: In the event of poor peripheral blood flow, venous or arterial blood should be used due to the potential of erroneous results. Notified Nurse RBV Antique Collector [id number] 03/05/2025 5:57 AM EDT [facility] Blood WHOLE BLOOD / Unknown 03/05/2025 5:56 AM EDT 03/05/2025 5:57 AM EDT Narrative [facility] - 03/05/2025 5:57 AM EDT Antique Collector ID is - [id number] us Julio César Carvajal MD POINT OF CARE TEST ORDERABLES Final Result Performing Organization Address City/[facility]/ZIP Co de Phone Number [facility] [address] [phone] * Glucose, Nova Meter (03/04/2025 9:04 PM EDT) Pathologist [facility] POC-GLUCOSE 99 70 - 110 mg/dL 03/04/2025 9:06 PM EDT [facility] Comment: In the event of poor peripheral blood flow, venous or arterial blood should be used due to the potential of erroneous results. Notified Nurse RBV Antique Collector [id number] 03/04/2025 9:06 PM EDT [facility] Blood WHOLE BLOOD / Unknown 03/04/2025 9:04 PM EDT 03/04/2025 9:06 PM EDT [facility] - 03/04/2025 9:06 PM EDT Antique Collector ID is - [id number] Julio César Carvajal MD POINT OF CARE TEST ORDERABLES Final Result Performing Organization Address [facility]/ZIP Co de Phone Number [facility] [address] [phone] * Glucose, Nova Meter (03/04/2025 4:09 PM EDT) Pathologist [facility] POC-GLUCOSE 110 70 - 110 mg/dL 03/04/2025 4:11 PM EDT [facility] Comment: In the event of poor peripheral blood flow, venous or arterial blood should be used due to the potential of erroneous results. Notified Nurse RBV Antique Collector [id number] 03/04/2025 4:11 PM EDT [facility] Blood WHOLE BLOOD / Unknown 03/04/2025 4:09 PM EDT 03/04/2025 4:11 PM EDT [facility] - 03/04/2025 4:11 PM EDT Antique Collector ID is - [id number] Julio César Carvajal MD POINT OF CARE TEST ORDERABLES Final Result [facility] [address] [place] [address], [facility] [phone] * (ABNORMAL) Glucose, Nova Meter (03/04/2025 10:29 AM EDT) POC-GLUCOSE 119(H) 70 - 110 mg/dL 03/04/2025 10:31 AM EDT [facility] Comment: In the event of poor peripheral blood flow, venous or arterial blood should be used due to the potential of erroneous results. Notified Nurse RBV Antique Collector [id number] 03/04/2025 10:31 AM EDT [facility] Blood WHOLE BLOOD / Unknown 03/04/2025 10:29 AM EDT 03/04/2025 10:31 AM EDT Narrative [facility] - 03/04/2025 10:31 AM EDT Antique Collector ID is - [id number] us Julio César Carvajal MD POINT OF CARE TEST ORDERABLES Final Result Performing Organization Address [facility]/ZIP Co de Phone Number [facility] [address] [phone] * Glucose, Nova Meter (03/04/2025 5:08 AM EDT) POC-GLUCOSE 99 70 - 110 mg/dL 03/04/2025 5:09 AM EDT [facility] Comment: In the event of poor peripheral blood flow, venous or arterial blood should be used due to the potential of erroneous results. Notified Nurse RBV Antique Collector [id number] 03/04/2025 5:09 AM EDT [facility] Blood WHOLE BLOOD / Unknown 03/04/2025 5:08 AM EDT 03/04/2025 5:09 AM EDT Narrative [facility] - 03/04/2025 5:09 AM EDT Antique Collector ID is - [id number] us Julio César Carvajal MD POINT OF CARE TEST ORDERABLES Final Result Performing Organization Address City/[facility]/ZIP Co de Phone Number [facility] [address] [phone] * (ABNORMAL) Glucose, Nova Meter (03/03/2025 8:17 PM EDT) POC-GLUCOSE 121(H) 70 - 110 mg/dL 03/03/2025 8:18 PM EDT [facility] Comment: In the event of poor peripheral blood flow, venous or arterial blood should be used due to the potential of erroneous results. Notified Nurse RBV Antique Collector [id number] 03/03/2025 8:18 PM EDT [facility] Blood WHOLE BLOOD / Unknown 03/03/2025 8:17 PM EDT 03/03/2025 8:18 PM EDT Narrative [facility] - 03/03/2025 8:18 PM EDT Antique Collector ID is - [id number] us Julio César Carvajal MD POINT OF CARE TEST ORDERABLES Final Result Performing Organization Address [facility] Co de Phone Number [facility] [address] [phone] * (ABNORMAL) Glucose, Nova Meter (03/03/2025 4:04 PM EDT) POC-GLUCOSE 125(H) 70 - 110 mg/dL 03/03/2025 4:06 PM EDT [facility] Comment: In the event of poor peripheral blood flow, venous or arterial blood should be used due to the potential of erroneous results. Notified Nurse RBV Antique Collector [id number] 03/03/2025 4:06 PM EDT [facility] Blood WHOLE BLOOD / Unknown 03/03/2025 4:04 PM EDT 03/03/2025 4:06 PM EDT Narrative [facility] - 03/03/2025 4:06 PM EDT Antique Collector ID is - [id number] us Julio César Carvajal MD POINT OF CARE TEST ORDERABLES Final Result Performing Organization Address City/[facility]/ZIP Co de Phone Number [facility] [address] [place] [address], [facility] [phone] * Glucose, Nova Meter (03/03/2025 10:35 AM EDT) POC-GLUCOSE 104 70 - 110 mg/dL 03/03/2025 10:37 AM EDT [facility] Comment: In the event of poor peripheral blood flow, venous or arterial blood should be used due to the potential of erroneous results. Notified Nurse RBV Antique Collector [id number] 03/03/2025 10:37 AM EDT [facility] Blood WHOLE BLOOD / Unknown 03/03/2025 10:35 AM EDT 03/03/2025 10:37 AM EDT Narrative [facility] - 03/03/2025 10:37 AM EDT Antique Collector ID is - [id number] us Julio César Carvajal MD POINT OF CARE TEST ORDERABLES Final Result Performing Organization Address City/State/[facility] Co de Phone Number [facility] [address] [phone] * XR spine cervical 2 or 3 views (03/03/2025 10:06 AM EDT) Anatomical Region Laterality Modality C-spine, T-spine, Neck X-Ray 03/04/2025 9:26 AM EDT Impressions 03/04/2025 9:38 AM EDT Post-operative change without acute fracture. Images reviewed, interpreted, and dictated by Dr. Carolina Gant. Transcribed by Neelima Mancia PA-C. Narrative 03/04/2025 9:38 AM EDT CERVICAL SPINE SERIES HISTORY: Acute neck pain, post-operative evaluation. COMPARISON: None. FINDINGS: Two views of the cervical spine were obtained. There are post operative changes from posterior fusion spanning the superior C3 level and the inferior C4 level. No hardware complication identified. There is moderate spurring of the cervical spine. There is no acute fracture . There is a surgical drain noted. Procedure Note Carolina Gant MD - 03/04/2025 CERVICAL SPINE SERIES HISTORY: Acute neck pain, post-operative evaluation. COMPARISON: None. FINDINGS: Two views of the cervical spine were obtained. There are post operative changes from posterior fusion spanning the superior C3 level and the inferior C4 level. No hardware complication identified. There is moderate spurring of the cervical spine. There is no acute fracture . There is a surgical drain noted. IMPRESSION: Post-operative change without acute fracture. Images reviewed, interpreted, and dictated by Dr. Carolina Gant. Transcribed by Neelima Mancia PA-C. Julio César Carvajal MD IMG DIAGNOSTIC IMAGING ORDERA BLES Final Result * (ABNORMAL) Glucose, Nova Meter (03/03/2025 5:39 AM EDT) POC-GLUCOSE 130(H) 70 - 110 mg/dL 03/03/2025 5:40 AM EDT [facility] Comment: In the event of poor peripheral blood flow, venous or arterial blood should be used due to the potential of erroneous results. Notified Nurse RBV Antique Collector [id number] 03/03/2025 5:40 AM EDT [facility] Blood WHOLE BLOOD / Unknown 03/03/2025 5:39 AM EDT 03/03/2025 5:40 AM EDT Narrative [facility] - 03/03/2025 5:40 AM EDT Antique Collector ID is - [id number] Julio César Carvajal MD POINT OF CARE TEST ORDERABLES Final Result [facility] [address] [phone] * (ABNORMAL) Basic Metabolic Panel (03/03/2025 2:36 AM EDT) Sodium 141 136 - 145 meq/L 03/03/2025 3:28 AM EDT [facility] Potassium 5.0 3.4 - 5.1 meq/L 03/03/2025 3:28 AM EDT [facility] CO2 21(L) 22 - 29 meq/L 03/03/2025 3:28 AM EDT [facility] Chloride 109 98 - 112 meq/L 03/03/2025 3:28 AM EDT [facility] Glucose 125(H) 82 - 115 mg/dL 03/03/2025 3:28 AM EDT [facility] BUN 18.9 9.8 - 20.1 mg/dL 03/03/2025 3:28 AM EDT [facility] Creatinine 1.40(H) 0.57 - 1.11 mg/dL 03/03/2025 3:28 AM EDT [facility] BUN/Creatinine 14 8 - 20 03/03/2025 3:28 AM EDT [facility] Calcium 8.9 8.4 - 10.2 mg/dL 03/03/2025 3:28 AM EDT [facility] Anion Gap 16(H) 4 - 12 03/03/2025 3:28 AM EDT [facility] eGFR (mL/min/1.73m2) 39(L) >=60 mL/min/1.7 3m2 03/03/2025 3:28 AM EDT [facility] Comment:ESTIMATED GFR IS NOT ACCURATE CREATININE CLEARANCE IN PREDICTING GLOMERULAR FILTRATION RATE. ESTIMATED GFR IS NOT APPLICABLE FOR DIALYSIS PATIENTS. Osmolality Calc 285.0 mOsm/kg 3:28 AM EDT [facility] Blood Venipuncture / Unknown 03/03/2025 2:36 AM EDT 03/03/2025 2:53 AM EDT us Julio César Carvajal MD LAB BLOOD ORDERABLES Final Re sult [facility] [address] [phone] * (ABNORMAL) CBC (Hemogram only) (03/03/2025 2:36 AM EDT) WBC 9.9 4.0 - 10.0 K/ L 03/03/2025 2:57 AM EDT [facility] RBC 3.74(L) 3.93 - 5.22 M/ L 03/03/2025 2:57 AM EDT [facility] Hemoglobin 11.4 11.2 - 15.7 GM/DL 03/03/2025 2:57 AM EDT [facility] Hematocrit 34.8 34.1 - 44.9 % 03/03/2025 2:57 AM EDT [facility] MCV 93 79 - 95 fL 03/03/2025 2:57 AM EDT [facility] MCH 30.5 25.6 - 32.2 pg 03/03/2025 2:57 AM EDT [facility] MCHC 32.8 32.2 - 35.5 GM/DL 03/03/2025 2:57 AM EDT [facility] RDW 14.0 11.7 - 14.4 % 03/03/2025 2:57 AM EDT [facility] Platelets 172 140 - 375 K/CU MM 03/03/2025 2:57 AM EDT [facility] MPV 12.0 9.4 - 12.3 fL 03/03/2025 2:57 AM EDT [facility] Blood Venipuncture / Unknown 03/03/2025 2:36 AM EDT 03/03/2025 2:53 AM EDT us Julio César Carvajal MD LAB BLOOD ORDERABLES Final Re sult [facility] [address] [phone] * (ABNORMAL) Glucose, Nova Meter (03/02/2025 8:28 PM EDT) [facility] POC-GLUCOSE 131(H) 70 - 110 mg/dL 03/02/2025 8:29 PM EDT [facility] Comment: In the event of poor peripheral blood flow, venous or arterial blood should be used due to the potential of erroneous results. Notified Nurse RBV Antique Collector [id number] 03/02/2025 8:29 PM EDT [facility] Blood WHOLE BLOOD / Unknown 03/02/2025 8:28 PM EDT 03/02/2025 8:29 PM EDT Narrative [facility] - 03/02/2025 8:29 PM EDT Antique Collector ID is - [id number] us Julio César Carvajal MD POINT OF CARE TEST ORDERABLES Final Result [facility] [address] [phone] * (ABNORMAL) Basic Metabolic Panel (03/02/2025 5:41 PM EDT) Sodium 142 136 - 145 meq/L 03/02/2025 6:24 PM EDT [facility] Potassium 4.4 3.4 - 5.1 meq/L 03/02/2025 6:24 PM EDT [facility] CO2 18(L) 22 - 29 meq/L 03/02/2025 6:24 PM EDT [facility] Chloride 109 98 - 112 meq/L 03/02/2025 6:24 PM EDT [facility] Glucose 109 82 - 115 mg/dL 03/02/2025 6:24 PM EDT [facility] BUN 21.3(H) 9.8 - 20.1 mg/dL 03/02/2025 6:24 PM EDT [facility] Creatinine 1.38(H) 0.57 - 1.11 mg/dL 03/02/2025 6:24 PM EDT [facility] BUN/Creatinine 15 8 - 20 03/02/2025 6:24 PM EDT [facility] Calcium 9.3 8.4 - 10.2 mg/dL 03/02/2025 6:24 PM EDT [facility] Anion Gap 19(H) 4 - 12 03/02/2025 6:24 PM EDT [facility] eGFR (mL/min/1.73m2) 40(L) >=60 mL/min/1.7 3m2 03/02/2025 6:24 PM EDT [facility] Comment:ESTIMATED GFR IS NOT ACCURATE CREATININE CLEARANCE IN PREDICTING GLOMERULAR FILTRATION RATE. ESTIMATED GFR IS NOT APPLICABLE FOR DIALYSIS PATIENTS. Osmolality Calc 286.8 mOsm/kg 6:24 PM EDT [facility] Blood Venipuncture / Unknown 03/02/2025 5:41 PM EDT 03/02/2025 5:57 PM EDT us Valencia Harmon MD LAB BLOOD ORDERABLES Final Resul t [facility] [address] [phone] * Glucose, Nova Meter (03/02/2025 10:34 AM EDT) POC-GLUCOSE 100 70 - 110 mg/dL 03/02/2025 10:35 AM EDT [facility] Comment: In the event of poor peripheral blood flow, venous or arterial blood should be used due to the potential of erroneous results. Notified Nurse RBV Antique Collector [id number] 03/02/2025 10:35 AM EDT [facility] Blood WHOLE BLOOD / Unknown 03/02/2025 10:34 AM EDT 03/02/2025 10:35 AM EDT Narrative [facility] - 03/02/2025 10:35 AM EDT Antique Collector ID is - [id number] us Julio César Carvajal MD POINT OF CARE TEST ORDERABLES Final Result Performing Organization Address [facility] Co de Phone Number [facility] [address] [phone] * [place] C-ARM < 1 HOUR (03/02/2025 9:56 AM EDT) Anatomical Region Laterality Modality X-Ray 03/02/2025 2:43 PM EDT Impressions 03/02/2025 5:12 PM EDT Please see postoperative report. Images reviewed, interpreted, and dictated by Dr. Aneesh Castillo. Transcribed by Maco Malin PA-C. Narrative 03/02/2025 5:12 PM EDT FLUOROSCOPY WITH FILMS HISTORY: C3-5 PCF Fluoroscopic guidance was provided under the direction of the clinical service for intraoperative procedure. 2 digital spot radiographs were obtained for cervical fusion. Fluoroscopy time was 0.19 minutes. RADIATION DOSE: Reference air kerma 2 mGy. Procedure Note Aneesh Castillo MD - 03/02/2025 FLUOROSCOPY WITH FILMS HISTORY: C3-5 PCF Fluoroscopic guidance was provided under the direction of the clinical service for intraoperative procedure. 2 digital spot radiographs were obtained for cervical fusion. Fluoroscopy time was 0.19 minutes. RADIATION DOSE: Reference air kerma 2 mGy. IMPRESSION: Please see postoperative report. Images reviewed, interpreted, and dictated by Dr. Aneesh Castillo. Transcribed by Maco Malin PA-C. us Julio César Carvajal MD IMG FLUOROSCOPY ORDERABLES Fi nal Result * Glucose, Nova Meter (03/02/2025 7:02 AM EDT) POC-GLUCOSE 108 70 - 110 mg/dL 03/02/2025 7:04 AM EDT [facility] Comment: In the event of poor peripheral blood flow, venous or arterial blood should be used due to the potential of erroneous results. Protocols Followed Antique Collector [id number] 03/02/2025 7:04 AM EDT [facility] Blood WHOLE BLOOD / Unknown 03/02/2025 7:02 AM EDT 03/02/2025 7:04 AM EDT Narrative [facility] - 03/02/2025 7:04 AM EDT Antique Collector ID is - [id number] us Julio César Carvajal MD POINT OF CARE TEST ORDERABLES Final Result [facility] [address] [phone] * Type and Screen (03/02/2025 6:59 AM EDT) ABO/Rh O Negative 03/02/2025 7:04 AM EDT [facility] ([place]) Antibody Screen Negative 03/02/2025 7:04 AM EDT [facility] ([place]) HISTCHK HIST CHECK PERFORMED 03/02/2025 7:04 AM EDT [facility] ([place]) Blood Venipuncture / Unknown 03/02/2025 6:59 AM EDT 03/02/2025 7:04 AM EDT us Shauna Valladares MD [facility] TEST ORDERA BLES Final Result [facility] ([place]) [address] [place] [address], [facility] [phone] documented in this encounter Visit Diagnoses Diagnosis Cervical myelopathy (HCC)- Primary Cervical spondylosis with myelopathy documented in this encounter Admitting Diagnoses Diagnosis Cervical myelopathy (HCC) Cervical spondylosis with myelopathy documented in this encounter Administered Medications Inactive Administered Medications - up to 3 most recent administrations Medication Order MAR Action Action Date Dose Rate Site acetaminophen (TYLENOL) tablet 1,000 mg 1,000 mg Every 6 hours, oral, First dose on Dina 03/02/25 at 1030, Recommended maximum dose of acetaminophen is 4000 mg from all sources in 24 hours, Phase II/On Unit Given 03/05/2025 11:18 AM EDT 1,000 mg Given 03/04/2025 10:30 PM EDT 1,000 mg Given 03/04/2025 10:07 AM EDT 1,000 mg atorvastatin (LIPITOR) tablet 40 mg 40 mg Every Night, oral, First dose on Dina 03/02/25 at 2100 Given 03/04/2025 8:50 PM EDT 40 mg Given 03/03/2025 8:47 PM EDT 40 mg Given 03/02/2025 9:24 PM EDT 40 mg bisacodyL (DULCOLAX) EC tablet 10 mg 10 mg Daily as needed, oral, constipation, Starting on Dina 03/02/25 at 1007, 1st line for treatment of constipation - give scheduled if no bowel movement in past 24 hours. See suppository order and give rectally if not able to take PO., Phase II/On Unit Given 03/04/2025 10:07 AM EDT 10 mg Given 03/03/2025 8:47 PM EDT 10 mg bisacodyL (DULCOLAX) suppository 10 mg 10 mg Daily as needed, rectal, constipation, Starting on Dina 03/02/25 at 1007, 1st line for treatment of constipation - give scheduled if no bowel movement in past 24 hours. Give suppository rectally if unable to take PO., Phase II/On Unit Given 03/05/2025 9:31 AM EDT 10 mg bisoprolol (ZEBETA) tablet 5 mg 5 mg Daily, oral, First dose on Dina 03/02/25 at 1700 Given 03/05/2025 9:30 AM EDT 5 mg Given 03/04/2025 8:28 AM EDT 5 mg Given 03/03/2025 9:17 AM EDT 5 mg cyclobenzaprine (FLEXERIL) tablet 5 mg 5 mg 3 times daily PRN, oral, muscle spasms, Starting on Dina 03/02/25 at 1007, Phase II/On Unit Given 03/05/2025 11:18 AM EDT 5 mg Given 03/04/2025 8:29 AM EDT 5 mg Given 03/03/2025 4:36 AM EDT 5 mg dextrose 50% (D50W) injection 25 g 25 g Every 15 min PRN, intravenous, low blood glucose (specify value in prn comments), less than 41 mg/dL or 41-69 mg/dL and unable to take PO, Starting on Dina 03/02/25 at 1634, Repeat blood glucose every 15 minutes until blood glucose greater than 70 mg/dL. Call Provider if not resolved after 2 treatments Repeat BS in 1 hour, retime for 1 hour after blood sugar greater than 70 mg/dL If less than 41: Repeat Finger stick within 5 minutes with same machine Send serum glucose level: Do not wait on lab to treat diphenhydrAMINE (BENADRYL) injection 12.5 mg 12.5 mg Once as needed, intravenous, itching, Starting on Dina 03/02/25 at 0951, For 1 dose, Maximum cumulative dose 100 mg, PACU Given 03/02/2025 11:52 AM EDT 12.5 mg docusate sodium (COLACE) capsule 100 mg 100 mg 2 times daily, oral, First dose on Dina 03/02/25 at 1030, Bowel Regimen - for prevention of constipation., Phase II/On Unit Given 03/05/2025 9:30 AM EDT 100 mg Given 03/04/2025 8:50 PM EDT 100 mg Given 03/04/2025 8:28 AM EDT 100 mg enoxaparin (LOVENOX) syringe 30 mg 30 mg Every 24 hours, subcutaneous, First dose on [facility] 03/02/25 at 1030, Renal dosing, Phase II/On Unit Given 03/05/2025 11:18 AM EDT 30 mg Abdominal Tissue Given 03/04/2025 10:07 AM EDT 30 mg A bdominal Tissue Given 03/03/2025 10:33 AM EDT 30 mg A bdominal Tissue famotidine (PEPCID) tablet 20 mg 20 mg Once, oral, On Dina 03/02/25 at 0700, For 1 dose, Pharmacist to renally dose if CrCl is less than 50 mL/min or on CRRT., Pre-op Given 03/02/2025 6:41 AM EDT 20 m g famotidine (PEPCID) tablet 20 mg 20 mg Daily, oral, First dose (after last modification) on Thu03/03/25 at 0900, Per Renal Impairment Dosing Policy Pharmacist to renally dose if CrCl is less than 50 mL/min or on CRRT., Pre-op Given 03/05/2025 9:30 AM EDT 20 mg Given 03/04/2025 8:28 AM EDT 20 mg Given 03/03/2025 9:17 AM EDT 20 mg fentaNYL PF (SUBLIMAZE) injection 25 mcg 25 mcg Every 5 min PRN, intravenous, moderate to severe pain (4-10), Starting on Dina 03/02/25 at 0951, Maximum cumulative dose 100 mcg without speaking to anesthesia provider Administer this medication THIRD LINE for a pain scale of 4-10 SEVERE Fentanyl inj, PACU Given 03/02/2025 10:45 AM EDT 25 mcg glucagon injection 1 mg 1 mg Every 15 min PRN, intraMUSCULAR, low blood glucose (specify value in prn comments), For Patients without IV access and blood glucose 41-69 mg/dL AND unable to take PO OR Less than 41 mg/dL, Starting on Dina 03/02/25 at 1634, Caution: glucagon . Roll patient on their side when administering to prevent aspiration. Call Provider if not resolved after 2 treatments Repeat BS in 1 hour, retime for 1 hour after blood sugar greater than 70 mg/dL glucose chew tab 16 g 16 g Every 15 min PRN, oral, low blood glucose (specify value in prn comments), 41-69 mg/dL, Starting on Dina 03/02/25 at 1634, For Patients who can take oral AND blood glucose 41-69 mg/dL Give 4 Tabs every 15 minutes. Recheck blood glucose every 15 minutes and repeat 15 grams of carbohydrates until blood glucose is above 70 mg/dL. Give Meal or Snack Call Provider if not resolved after 3 treatments Repeat BS in 1 hour, retime for 1 hour after blood sugar greater than 70 mg/dL hydrALAZINE (APRESOLINE) injection 10 mg 10 mg Every 4 hours PRN, intravenous, high blood pressure (specify), sbp > 160, Starting on Dina 03/02/25 at 1643, Hold if SBP < 100 mmHg, DBP < 50 mmHg, or patient is on pressor. Look-alike/Sound-alike medication Given 03/04/2025 8:50 PM EDT 10 mg hydrALAZINE (APRESOLINE) injection 5 mg 5 mg Every 10 min PRN, intravenous, other, ., Starting on Dina 03/02/25 at 0951, For 2 doses, Hold if SBP less than 140 mmHg, DBP less than 70 mmHg, or patient is on pressor. Look-alike/Sound-alike medication, PACU Given 03/02/2025 10:55 AM EDT 5 mg Given 03/02/2025 10:45 AM EDT 5 mg HYDROmorphone (DILAUDID) injection 0.5 mg 0.5 mg Every 4 hours PRN, intravenous, moderate pain (4-6), severe pain (7-10), Starting on Dina 03/02/25 at 1007, For 36 hours, Administer this medication THIRD LINE for a pain scale of 6-4 MODERATE and 7-10 SEVERE Hydromorphone injection. Adiminister PO formulation first unless patient is unalble to take or tolerate PO administration. Give only if inadequate response (less than 50% reduction in pain score) 60 minutes after administration of 2nd line agent. May give in addition to 1st + 2nd line analgesics (+ adjuvants if ordered). Hold for sedation., Phase II/On Unit Given 03/02/2025 9:25 PM EDT 0.5 mg Given 03/02/2025 4:08 PM EDT 0.5 mg hydrOXYzine pamoate (VISTARIL) capsule 25 mg 25 mg Every Night, oral, First dose on Dina 03/02/25 at 2100, Look-alike/Sound-alike medication Given 03/04/2025 8:50 PM EDT 25 mg Given 03/03/2025 8:47 PM EDT 25 mg Given 03/02/2025 9:24 PM EDT 25 mg insulin lispro (HUMALOG, ADMELOG) injection 0-6 Units 0-6 Units 4 times daily (before meals and nightly), subcutaneous, First dose on [facility] 03/02/25 at 1700, If Blood Sugar is less than 180 between 0867-2169, DO NOT give corrective insulin unless otherwise ordered. Corrective Scale A 0 units for fingerstick blood glucose LESS than 140 mg/dL 1 unit subcutaneously once for fingerstick blood glucose [140] - [180] mg/dL 2 units subcutaneously once for fingerstick blood glucose [181] - [220] mg/dL 3 units subcutaneously once for fingerstick blood glucose [221] - [260] mg/dL 4 units subcutaneously once for fingerstick blood glucose [261] - [300] mg/dL 5 units subcutaneously once for fingerstick blood glucose [301] - [350] mg/dL 6 units subcutaneously once for fingerstick blood glucose [351] - [400] mg/dL Notify provider of glucose levels LESS than [70] and GREATER than [400] lactated Ringer's infusion 100 mL/hr Continuous, intravenous, Starting on Dina 03/02/25 at 0700, Pre-op Rate/Dose Verify 03/02/2025 11:05 PM EDT 100 mL/hr 100 mL/hr Continued by Anesthesia 03/02/2025 7:28 AM EDT 100 mL/hr New Bag 03/02/2025 7:00 AM EDT 100 mL/hr 100 mL/hr levothyroxine (SYNTHROID) tablet 112 mcg 112 mcg Daily (0600), oral, First dose on Thu03/03/25 at 0600, ADMINISTER ON AN EMPTY STOMACH Given 03/05/2025 5:44 AM EDT 112 mcg Given 03/04/2025 5:52 AM EDT 112 mcg Given 03/03/2025 5:08 AM EDT 112 mcg losartan-hydrochlorothiazide (HYZAAR) 50-12.5 mg per tablet 2 tablet 2 tablet Daily, oral, First dose on [facility] 03/02/25 at 1700 Given 03/05/2025 9:30 AM EDT 2 tablets Given 03/04/2025 8:29 AM EDT 2 tablets Given 03/03/2025 9:17 AM EDT 2 tablets magnesium hydroxide (MILK OF MAGNESIA) suspension 15 mL 15 mL Daily as needed, oral, constipation, Starting on 03/04/25 at 1742, Do NOT exceed 6 doses per order. Given 03/04/2025 6:49 PM EDT 15 mLs ondansetron (ZOFRAN) injection 4 mg 4 mg Every 8 hours PRN, intravenous, nausea, vomiting, Starting on Dina 03/02/25 at 1007, Give IV if patient is unable to take orally. 1st line If inadequate response within 60 minutes, proceed to next-line agent for same PRN reason or contact provider if no further options ordered. For IV push, give over 2 - 5 minutes., Phase II/On Unit ondansetron (ZOFRAN-ODT) disintegrating tablet 4 mg 4 mg Every 8 hours PRN, oral, nausea, vomiting, Starting on Dina 03/02/25 at 1007, 1st line. If inadequate response within 60 minutes, proceed to next-line agent for same PRN reason or contact provider if no further options ordered., Phase II/On Unit Given 03/05/2025 12:27 PM EDT 4 mg oxyCODONE (ROXICODONE) immediate release tablet 5 mg 5 mg Once as needed, oral, moderate pain (4-6), Starting on Dina 03/02/25 at 0951, For 1 dose, Once patient is taking PO This medication is to be administered for a pain scale of 4-6 MODERATE Oxycodone Look-alike/Sound-alike medication, PACU Given 03/02/2025 10:45 AM EDT 5 mg oxyCODONE (ROXICODONE) immediate release tablet 5 mg 5 mg Every 4 hours PRN, oral, moderate pain (4-6), Starting on Dina 03/02/25 at 1007, This medication is to be administered SECOND LINE for a pain scale of 4-6 MODERATE Oxycodone Give only if inadequate response (less than 50% reduction in pain score) 60 minutes after administration of 1st line analgesics + adjuvants (if ordered). Look-alike/Sound-alike medication, Phase II/On Unit Given 03/05/2025 11:18 AM EDT 5 mg Given 03/04/2025 8:50 PM EDT 5 mg Given 03/04/2025 2:40 PM EDT 5 mg sodium chloride 0.9 % infusion 100 mL/hr Continuous, intravenous, Starting on Dina 03/02/25 at 1030, Phase II/On Unit Rate/Dose Verify 03/02/2025 11:05 PM EDT 100 mL/hr 100 mL/hr New Bag 03/02/2025 9:30 PM EDT 100 mL/hr 100 mL/hr New Bag 03/02/2025 2:18 PM EDT 100 mL/hr 100 mL/hr sodium chloride 0.9 % infusion 100 mL/hr Continuous, intravenous, Starting on Thu03/03/25 at 0930, For 20 hours New Bag 03/03/2025 9:19 AM EDT 100 mL/hr 100 mL/hr spironolactone (ALDACTONE) tablet 25 mg 25 mg Daily, oral, First dose on Dina 03/02/25 at 1700, Caution: Recommend wearing gloves during administration. DO NOT BREAK/CRUSH/CHEW. Employees who are , trying to become , or should not handle this medication. Dispose of trace medication (including packaging) in the BLACK waste bin. Given 03/05/2025 9:30 AM EDT 25 mg Given 03/04/2025 8:29 AM EDT 25 mg Given 03/03/2025 9:17 AM EDT 25 mg documented in this encounter Active and Recently Administered Medications Times are shown in EDT. Scheduled Medication Order 03/03/2025 03/04/2025 03/05/2025 acetaminophen (TYLENOL) tablet 1,000 mg 1,000 mg Every 6 hours, oral, First dose on Dina 03/02/25 at 1030, Recommended maximum dose of acetaminophen is 4000 mg from all sources in 24 hours, Phase II/On Unit 0139 (Not Given - Provider: Wendy Iniguez RN - Reason: Patient/family refused)0436 (Given - Provider: Wendy Iniguez RN)1033 (Given - Provider: Nancy Celis RN)1814 (Given - Provider: Dilma Lynch LPN)2348 (Given - Provider: Neelima Love) 0343 (Not Given - Provider: Neelima Love - Reason: Patient/family refused)1007 (Given - Provider: Marita Turcios RN)1720 (Not Given - Provider: Marita Turcios RN - Reason: Patient/family refused - Comment: pt family requested to let pt sleep)2230 (Given - Provider: Neelima Love) 0425 (Not Given - Provider: Neelima Love - Reason: Patient/family refused)1118 (Given - Provider: Marita Turcios RN) atorvastatin (LIPITOR) tablet 40 mg 40 mg Every Night, oral, First dose on Dina 03/02/25 at 2100 2046 (Given - Provider: Neelima Love) 2049 (Given - Provider: Neelima Love) bisoprolol (ZEBETA) tablet 5 mg 5 mg Daily, oral, First dose on Dina 03/02/25 at 1700 0917 (Given - Provider: Nancy Celis RN) 0828 (Given - Provider: Marita Turcios RN) 0930 (Given - Provider: Marita Turcios RN) docusate sodium (COLACE) capsule 100 mg 100 mg 2 times daily, oral, First dose on Dina 03/02/25 at 1030, Bowel Regimen - for prevention of constipation., Phase II/On Unit 0917 (Given - Provider: Nancy Celis RN)2046 (Given - Provider: Neelima Love) 0828 (Given - Provider: Marita Turcios RN)2049 (Given - Provider: Neelima Love) 0930 (Given - Provider: Marita Turcios RN) enoxaparin (LOVENOX) syringe 30 mg 30 mg Every 24 hours, subcutaneous, First dose on Dina 03/02/25 at 1030, Renal dosing, Phase II/On Unit 1033 (Given - Provider: Nancy Celis RN) 1007 (Given - Provider: Marita Turcios RN) 1118 (Given - Provider: Marita Turcios, NANNETTE) famotidine (PEPCID) tablet 20 mg 20 mg Daily, oral, First dose (after last modification) on Thu03/03/25 at 0900, Per Renal Impairment Dosing Policy Pharmacist to renally dose if CrCl is less than 50 mL/min or on CRRT., Pre-op 09 (Given - Provider: Nancy Celis RN) 08 (Given - Provider: Marita Turcios, NANNETTE) 929 (Given - Provider: Marita Turcios, RN) hydrOXYzine pamoate (VISTARIL) capsule 25 mg 25 mg Every Night, oral, First dose on Thu03/02/25 at 2100, Look-alike/Sound-alike medication 2046 (Given - Provider: Neelima Love) 2049 (Given - Provider: Neelima Love) insulin lispro (HUMALOG, ADMELOG) injection 0-6 Units 0-6 Units 4 times daily (before meals and nightly), subcutaneous, First dose on Dina 03/02/25 at 1700, If Blood Sugar is less than 180 between 7036-6948, DO NOT give corrective insulin unless otherwise ordered. Corrective Scale A 0 units for fingerstick blood glucose LESS than 140 mg/dL 1 unit subcutaneously once for fingerstick blood glucose [140] - [180] mg/dL 2 units subcutaneously once for fingerstick blood glucose [181] - [220] mg/dL 3 units subcutaneously once for fingerstick blood glucose [221] - [260] mg/dL 4 units subcutaneously once for fingerstick blood glucose [261] - [300] mg/dL 5 units subcutaneously once for fingerstick blood glucose [301] - [350] mg/dL 6 units subcutaneously once for fingerstick blood glucose [351] - [400] mg/dL Notify provider of glucose levels LESS than [70] and GREATER than [400] 0632 (Not Given - Provider: Wendy Iniguez RN - Reason: Order parameters not met)1055 (Not Given - Provider: Nancy Celis RN - Reason: Order parameters not met)174 (Not Given - Provider: Dilma Lynch LPN - Reason: Order parameters not met)2036 (Not Given - Provider: Neelima Love - Reason: VS / Lab Parameters not met) 0630 (Not Given - Provider: Neelima Love - Reason: VS / Lab Parameters not met)1038 (Not Given - Provider: Marita Turcios RN - Reason: VS / Lab Parameters not met)1624 (Not Given - Provider: Marita Turcios RN - Reason: VS / Lab Parameters not met)2116 (Not Given - Provider: Neelima Love - Reason: VS / Lab Parameters not met) 0632 (Not Given - Provider: Neelima Love - Reason: VS / Lab Parameters not met)1055 (Not Given - Provider: Marita Turcios RN - Reason: VS / Lab Parameters not met) levothyroxine (SYNTHROID) tablet 112 mcg 112 mcg Daily (0600), oral, First dose on Thu03/03/25 at 0600, ADMINISTER ON AN EMPTY STOMACH 0508 (Given - Provider: Wendy Iniguez RN) 0552 (Given - Provider: Neelima Love) 0544 (Given - Provider: Neelima Love) losartan-hydrochlorothiaz saravanan (HYZAAR) 50-12.5 mg per tablet 2 tablet 2 tablet Daily, oral, First dose on Dina 03/02/25 at 1700 0917 (Given - Provider: Nancy Celis RN) 0829 (Given - Provider: Marita Turcios RN) 0930 (Given - Provider: Marita Turcios RN) spironolactone (ALDACTONE) tablet 25 mg 25 mg Daily, oral, First dose on Dina 03/02/25 at 1700, Caution: Recommend wearing gloves during administration. DO NOT BREAK/CRUSH/CHEW. Employees who are , trying to become , or should not handle this medication. Dispose of trace medication (including packaging) in the BLACK waste bin. 0917 (Given - Provider: Nancy Celis RN) 0829 (Given - Provider: Marita Turcios RN) 0930 (Given - Provider: Marita Turcios RN) Continuous Medication Order 03/03/2025 03/04/2025 03/05/2025 lactated Ringer's infusion 100 mL/hr Continuous, intravenous, Starting on Dina 03/02/25 at 0700, Pre-op sodium chloride 0.9 % infusion 100 mL/hr Continuous, intravenous, Starting on Dina 03/02/25 at 1030, Phase II/On Unit sodium chloride 0.9 % infusion 100 mL/hr Continuous, intravenous, Starting on Thu03/03/25 at 0930, For 20 hours 0919 (New Bag - Provider: Nancy Celis, NANNETTE) PRN Medication Order 03/03/2025 03/04/2025 03/05/2025 azelastine (ASTELIN) nasal spray 1 spray 1 spray 2 times daily PRN, each nostril, rhinitis, Starting on Dina 03/02/25 at 1639, MULTI-DOSE ITEM Please store in patient med bin in [facility] after each use and transfer with patient should they transfer to a different room or unit bisacodyL (DULCOLAX) EC tablet 10 mg(Linked Group 1) 10 mg Daily as needed, oral, constipation, Starting on Dina 03/02/25 at 1007, 1st line for treatment of constipation - give scheduled if no bowel movement in past 24 hours. See suppository order and give rectally if not able to take PO., Phase II/On Unit 2046 (Given - Provider: Neelima Love) 1007 (Given - Provider: Marita Turcios, NANNETTE) 0931 (See Alternative - Provider: Marita Turcios, NANNETTE) bisacodyL (DULCOLAX) suppository 10 mg(Linked Group 1) 10 mg Daily as needed, rectal, constipation, Starting on Dina 03/02/25 at 1007, 1st line for treatment of constipation - give scheduled if no bowel movement in past 24 hours. Give suppository rectally if unable to take PO., Phase II/On Unit 2046 (See Alternative - Provider: Neelima Love) 1007 (See Alternative - Provider: Marita Turcios, NANNETTE) 0931 (Given - Provider: Marita Turcios, NANNETTE) cyclobenzaprine (FLEXERIL) tablet 5 mg 5 mg 3 times daily PRN, oral, muscle spasms, Starting on Dina 03/02/25 at 1007, Phase II/On Unit 435 (Given - Provider: Wendy Iniguez RN) 0829 (Given - Provider: Marita Turcios, NANNETTE) 1118 (Given - Provider: Marita Turcios, NANNETTE) dextrose 50% (D50W) injection 25 g 25 g Every 15 min PRN, intravenous, low blood glucose (specify value in prn comments), less than 41 mg/dL or 41-69 mg/dL and unable to take PO, Starting on Dina 03/02/25 at 1634, Repeat blood glucose every 15 minutes until blood glucose greater than 70 mg/dL. Call Provider if not resolved after 2 treatments Repeat BS in 1 hour, retime for 1 hour after blood sugar greater than 70 mg/dL If less than 41: Repeat Finger stick within 5 minutes with same machine Send serum glucose level: Do not wait on lab to treat glucagon injection 1 mg 1 mg Every 15 min PRN, intraMUSCULAR, low blood glucose (specify value in prn comments), For Patients without IV access and blood glucose 41-69 mg/dL AND unable to take PO OR Less than 41 mg/dL, Starting on [facility] 03/02/25 at 1634, Caution: glucagon . Roll patient on their side when administering to prevent aspiration. Call Provider if not resolved after 2 treatments Repeat BS in 1 hour, retime for 1 hour after blood sugar greater than 70 mg/dL glucose chew tab 16 g 16 g Every 15 min PRN, oral, low blood glucose (specify value in prn comments), 41-69 mg/dL, Starting on [facility] 03/02/25 at 1634, For Patients who can take oral AND blood glucose 41-69 mg/dL Give 4 Tabs every 15 minutes. Recheck blood glucose every 15 minutes and repeat 15 grams of carbohydrates until blood glucose is above 70 mg/dL. Give Meal or Snack Call Provider if not resolved after 3 treatments Repeat BS in 1 hour, retime for 1 hour after blood sugar greater than 70 mg/dL hydrALAZINE (APRESOLINE) injection 10 mg 10 mg Every 4 hours PRN, intravenous, high blood pressure (specify), sbp > 160, Starting on [facility] 03/02/25 at 1643, Hold if SBP < 100 mmHg, DBP < 50 mmHg, or patient is on pressor. Look-alike/Sound-alike medication 2049 (Given - Provider: Neelima Love) magnesium hydroxide (MILK OF MAGNESIA) suspension 15 mL 15 mL Daily as needed, oral, constipation, Starting on [facility] 03/04/25 at 1742, Do NOT exceed 6 doses per order. 1848 (Given - Provider: Marita Turcios RN) ondansetron (ZOFRAN) injection 4 mg(Linked Group 2) 4 mg Every 8 hours PRN, intravenous, nausea, vomiting, Starting on [facility] 03/02/25 at 1007, Give IV if patient is unable to take orally. 1st line If inadequate response within 60 minutes, proceed to next-line agent for same PRN reason or contact provider if no further options ordered. For IV push, give over 2 - 5 minutes., Phase II/On Unit 1227 (See Alternative - Provider: Marita Turcios RN) ondansetron (ZOFRAN-ODT) disintegrating tablet 4 mg(Linked Group 2) 4 mg Every 8 hours PRN, oral, nausea, vomiting, Starting on [facility] 03/02/25 at 1007, 1st line. If inadequate response within 60 minutes, proceed to next-line agent for same PRN reason or contact provider if no further options ordered., Phase II/On Unit 1227 (Given - Provider: Marita Turcios RN) oxyCODONE (ROXICODONE) immediate release tablet 5 mg 5 mg Every 4 hours PRN, oral, moderate pain (4-6), Starting on [facility] 03/02/25 at 1007, This medication is to be administered SECOND LINE for a pain scale of 4-6 MODERATE Oxycodone Give only if inadequate response (less than 50% reduction in pain score) 60 minutes after administration of 1st line analgesics + adjuvants (if ordered). Look-alike/Sound-alike medication, Phase II/On Unit 0436 (Given - Provider: Wendy Iniguez RN)1033 (Given - Provider: Nancy Celis RN)2349 (Given - Provider: Neelima Love) 0828 (Given - Provider: Marita Turcios RN)1440 (Given - Provider: Marita Turcios, NANNETTE)2050 (Given - Provider: Neelima Love) 1118 (Given - Provider: Marita Turcios, NANNETTE) Linked Groups Order Group 1: bisacodyL (DULCOLAX) EC tablet 10 mgJump to med 10 mg Daily as needed, oral, constipation, Starting on [facility] 03/02/25 at 1007, 1st line for treatment of constipation - give scheduled if no bowel movement in past 24 hours. See suppository order and give rectally if not able to take PO., Phase II/On Unit Or bisacodyL (DULCOLAX) suppository 10 mgJump to med 10 mg Daily as needed, rectal, constipation, Starting on [facility] 03/02/25 at 1007, 1st line for treatment of constipation - give scheduled if no bowel movement in past 24 hours. Give suppository rectally if unable to take PO., Phase II/On Unit Group 2: ondansetron (ZOFRAN-ODT) disintegrating tablet 4 mgJump to med 4 mg Every 8 hours PRN, oral, nausea, vomiting, Starting on [facility] 03/02/25 at 1007, 1st line. If inadequate response within 60 minutes, proceed to next-line agent for same PRN reason or contact provider if no further options ordered., Phase II/On Unit Or ondansetron (ZOFRAN) injection 4 mgJump to med 4 mg Every 8 hours PRN, intravenous, nausea, vomiting, Starting on [facility] 03/02/25 at 1007, Give IV if patient is unable to take orally. 1st line If inadequate response within 60 minutes, proceed to next-line agent for same PRN reason or contact provider if no further options ordered. For IV push, give over 2 - 5 minutes., Phase II/On Unit documented in this encounter Care Teams Supervisor Phosphoric Acid Relationship Specialty Start Date End Date Krishan Caldwell MD [address] [place] [id number] PCP - General Adolescent Medicine 03/02/25 documented as of this encounter
--- OUTSIDE RECORDS SUMMARY | 2025-03-02 06:28 | XMS_ITS | Encounter Summary ---
Author Organization [employer] ([place], [place], [place], [place], [place]) [address] [facility] [place] [address] Care Team Providers Care Master Planner Name Role Phone Krishan Caldwell MD Primary Care Provider + [phone] Reason for Visit * Auth/Cert (Routine) Specialty Diagnoses / Procedures Referred By Contac t Referred To Contact Diagnoses Disease of spinal cord (HCC) SEE PRIMARY DX Procedures DC ARTHRD PST/PSTLAT TQ 1NTRSPC CRV BELW C2 SEGMENT DC ARTHRODESIS PST/PSTLAT TQ 1NTRSPC EA ADDL NTRSPC LAMINECTOMY, SPINE, CERVICAL, POSTERIOR APPROACH, WITH FUSION, PRONE POSITION [facility] [address] [place] [address] Phone: tel: fax: [facility] [address] [place] [address] Phone: tel: fax: Referral ID Status Reason Start Date Expiration Date Visits Re quested Visits Authorized [id number] 1 1 Encounter Details Date Type Department Care Team (Late st Contact Info) Description 03/02/2025 7:28 AM EDT Anesthesia Event [facility] [address] [place] [address] Shauna Valladares MD [facility] [place] [address] Anesthesia Record Procedure Summary Procedure Name Responsible Anesthesiologist Anesthesia Start Time Anesthesia Stop Time C3-C5 POSTERIOR CERVICAL FUSION WITH NEUROMONITORING (Spine Cervical) Shauna Valladares MD 03/02/25 0728 03/02/25 1032 Events Date Time Event Comment 03/02/2025 07 0728 An Start Patient identif ied and chart reviewed. 07 Pre-Induction Eval FDA anest hesia machine pre-use checkout completed. Patient status reassessed prior to start of anesthesia care. 07 An Start Data Anesthesia mac olvin and monitors checked. 0733 An Induction 0736 An Intubation 0755 Anesthesia Ready 1026 An Extubation 1028 an stop data 1032 An Stop Meds Name Total propofol (DIPRIVAN) infusion 10 mg/mL 1, 570.01 mg remifentanil (ULTIVA) injection 2 mg 1.3 5 mg lidocaine 2000 mg in dextrose 5% 500 mL (4 mg/mL) PMX infusion 251.2 mg dexmedetomidine (PRECEDEX) injection 100 mcg/mL 25 mcg fentaNYL (SUBLIMAZE) 50 mcg/mL injection 100 mcg propofol (DIPRIVAN) injection 10 mg/mL b olus 150 mg lidocaine (XYLOCAINE) injection 2% 100 m g Lidocaine (ZWROSG-W-WYS KIT) laryngotrac heal topical soln 4% 0.5 Application rocuronium (ZEMURON) 50 mg/5 mL injectio n 5 mg succinylcholine (ANECTINE) 20 mg/mL inje ction 120 mg phenylephrine (OSCAR-SYNEPHRINE) injection 600 mcg ondansetron (ZOFRAN) injection vial 4 mg mupirocin (BACTROBAN) topical ointment 2 % 1 Application magnesium sulfate injection 1 g phenylephrine (OSCAR-SYNEPHRIN E) 20 mg in sodium chloride 0.9 % (NS) 250 mL infusion 4,360 mcg ceFAZolin (ANCEF) 2 g in sodium chloride 0.9 % (NS) MBP 50 mL IVPB 2 g naloxone (NARCAN) 0.4 mg/mL injection 0. 1 mg lactated ringers (LR) infusion 250 mL lactated Ringer's infusion 0 mL * Agents Name O2 N2O Air SEVOFLURANE * Blood No blood administrations on file. Lines, Drains, and Airways Type Details Placement Removal Wound 03/02/25; 741; Incision; Neck; Not applicable 03/02/25 07 by Lencho Hutchinson RN Peripheral IV Placement Date: 03/02/25; Placement Time: 0658; Size: 18 G; Orientation: Left, Posterior; Location: Wrist; Site Prep: Alcohol; Local Anesthetic: None; Inserted by: garrett vargas; Insertion attempts: 1; Securement Method: Taped; Removal Date: 03/05/25; Removal Reason: Occluded 03/02/25 0658 by Garrett Vargas RN 03/05/25 0000 by Marita Turcios RN ETT Placement Date 03/02/25; Placement Time 0736 (created via procedure documentation); Airway Size 7.5; Airway Cuffed Yes; Removal Date 03/02/25; Removal Time 1028 03/02/25 0736 by Deshawn Olsen 03/02/25 1028 by Deshawn Olsen Peripheral IV Placement Date: 03/02/25; Placement Time: 0745 (created via procedure documentation); Size: 20 G; Orientation: Left; Location: Forearm; Site Prep: Alcohol; Removal Date: 03/09/25; Removal Time: 1309 03/02/25 0745 by Marbin Hidalgo CRNA 03/09/25 1309 by Automatic Discharge Provider Arterial Line Placement Date: 03/02/25; Placement Time: 0755 (created via procedure documentation); Orientation: Left; Location: Radial; Removal Date: 03/02/25; Removal Time: 1035 03/02/25 0755 by Deshawn Olsen 03/02/25 1035 by Nakita Bahena RN Closed/Suction Drain 03/02/25; 0941; Dr. Carvajal; 1; Posterior; Neck; Bulb; Flat; 7 Fr. 03/02/25 0941 by Lencho Hutchinson RN 03/04/25 1030 by Neelima Love documented in this encounter Social History Tobacco Use Types Packs/Day Years Used Date Smoking Tobacco: Never Smokeless Tobacco: Never Alcohol Use Standard Drinks/Week Comments Never 0 (1 standard drink = 0.6 oz pur e alcohol) Utilities Answer Date Recorded In the past 12 months, has t he Master Route, gas, oil, or water [employer] threatened to shut off services in your [...] your living situation today? I have a [facility] place to live 03/02/2025 Think about the [...] Do you speak a language other than [place] at [place]? No 03/02/2025 Do you want help with [...] on file documented as of this encounter OR Notes * Anesthesia Postprocedure Evaluation - Marbin Hidalgo CRNA - 03/02/2025 11:28 AM EDT Patient: Lavinia Iyer Procedure Summary Date: 03/02/25 Room / Location: [facility] Anesthesia Start: 727 Anesthesia Stop: 1031 Procedure: C3-C5 POSTERIOR CERVICAL FUSION WITH NEUROMONITORING (Spine Cervical) Diagnosis: Disease of spinal cord (HCC) (SEE PRIMARY DX) Surgeons: Julio César Carvajal MD Responsible Provider: Shauna Valladares MD Anesthesia Type: general ASA Status: 2 Anesthesia Type: general Vitals Value Taken Time BP 174/84 03/02/25 11:27 Temp 96.9 ??F (36.1 ??C) 03/02/25 10:35 Pulse 74 03/02/25 11:27 Resp 16 03/02/25 11:00 SpO2 99 % 03/02/25 11:27 Vitals shown include unfiled device data. Wt 75.3 kg (166 lb) BMI 26.00 kg/m?? Anesthesia Post Evaluation Patient participation: complete - patient participated Regional recovery expected within 48 hours: complete Level of consciousness: oriented x3 Pain management: adequate Airway patency: patent Respiratory status: spontaneous ventilation Cardiovascular status: hemodynamically stable Hydration status: WDL PONV: none Color: Lyndon Activity: Moves 4 extremities Inotropes/Vasopressors: N/A No notable events documented. Marbin Hidalgo CRNA 03/02/2025 11:28 AM EDT * Anesthesia Procedure Notes - Deshawn Olsen - 03/02/2025 8:04 AM EDTAssociated Order(s): Intubation Intubation Authorized by: Shauna Valladares MD Performed by: Deshawn Olsen Date/Time: 03/02/2025 7:36 AM Reason: elective Indications and Patient Condition Indications for airway management: anesthesia and airway protection Sedation level: general anesthesia Preoxygenated: yesPatient position: sniffing Mask difficulty assessment: 1 - vent by mask Final Airway Details Final airway type: endotracheal airway Endotracheal tube type: ETT Cuffed: yes Successful intubation technique: video laryngoscopy Adjuncts used in placement: intubating stylet Endotracheal tube insertion site: oral Blade: Mckenzie Blade size: #3 ETT size (mm): 7.5 Cormack-Lehane Classification: grade I - full view of glottis Placement verified by: chest auscultation and capnometry Measured from: lips ETT to lips (cm): 21 Number of attempts at approach: 1 Additional Comments Atraumatic Intubation. Lips, gums, and dentition unchanged and as preop. Bilateral BS and chest rise, ETCO2 confirmed Cosigned by Marbin Hidalgo CRNA at 03/02/2025 8:42 AM EDT * Anesthesia Procedure Notes - Deshawn Olsen - 03/02/2025 8:01 AM EDTAssociated Order(s): Peripheral IV Peripheral IV Authorized by: Shauna Valladares MD Performed by: Marbin Hidalgo CRNADate/Time: 03/02/2025 7:45 AM Placement Needle size: 20 G Laterality: left Location: forearm Site prep: alcohol Technique: anatomical landmarks Attempts: 2 Cosigned by Marbin Hidalgo CRNA at 03/02/2025 8:42 AM EDT * Anesthesia Procedure Notes - Deshawn Olsen - 03/02/2025 8:00 AM EDTAssociated Order(s): Arterial Line Arterial Line Authorized by: Shauna Valladares MD Performed by: Deshawn Olsen Date/Time: 03/02/2025 7:55 AM Guidance: ultrasound guided Patient location: OR Indication: continuous blood pressure monitoring, blood sampling needed Procedure Detail Catheter size: 20 G Catheter length: 1 and 3/4 inch Catheter type: Arrow Seldinger technique used. Site: left radial artery Securement method: suture Events: patient tolerated procedure well with no complications Cosigned by Marbin Hidalgo CRNA at 03/02/2025 8:42 AM EDT * Anesthesia Preprocedure Evaluation - Shauna Valladares MD - 03/02/2025 6:55 AM EDT ANESTHESIA PREOPERATIVE EVALUATION Patient: Lavinia Iyer Date/Time: 03/02/25729 Procedure: (C3-C5 POSTERIOR CERVICAL FUSION AND OTHER LEVELS TO BE DETERMINED WITH NEUROMONITORING ) Location: [facility] OR [facility] Surgeons: Julio César Carvajal MD Vitals: 03/02/25 0649 BP: (!) 151/77 Pulse: 71 Resp: 15 Temp: 97.8 ??F (36.6 ??C) TempSrc: Temporal Artery Weight: 75.3 kg (166 lb) Allergies Allergen Reactions Niacin Rash Current Outpatient Medications Medication Instructions acetaminophen (TYLENOL [...] oral, Daily spironolactone (ALDACTONE) 25 mg, Daily INPATIENT MEDICATIONS ceFAZolin 2 g intravenous Once Problem List as of 03/02/2025 Cardiovascular and Mediastinum Hypertension Coronary atherosclerosis of [place] coronary artery Endocrine Hypothyroidism Diabetes mellitus, type II (HCC) Nervous and Auditory Cervical myelopathy (HCC) Genitourinary CKD (chronic kidney disease), stage III (HCC) Other History of breast cancer History of SD (myocardial infarction) Hyperlipidemia Stented coronary artery Past Surgical History: Procedure Laterality Date BREAST SURGERY Right lumpectomy CARDIAC SURGERY 2023 heart catherization with 5 stents CATARACT EXTRACTION Bilateral COLONOSCOPY DILATION AND CURETTAGE OF UTERUS TUBAL LIGATION Social History Tobacco Use Smoking status: Never Smokeless tobacco: Never Substance Use Topics Alcohol use: Never Drug use: Never Echo Results (last 7 days) No results found for the last 168 hours. ECHO 12/23 EF 50-55% No significant VHD Positive bubble test STRESS TEST EF 62% No evidence of fixed or reversible perfusion defects Chemistry Component Value Date/Time NA 145 02/24/2025 1503 K 4.5 02/24/2025 1503 CL 109 02/24/2025 1503 CO2 27 02/24/2025 1503 BUN 29.4 (H) 02/24/2025 1503 CREATININE 1.95 (H) 02/24/2025 1503 Component Value Date/Time CALCIUM 9.9 02/24/2025 1503 Lab Results Component Value Date WBC 5.9 02/24/2025 HGB 11.7 02/24/2025 HCT 35.9 02/24/2025 MCV 92 02/24/2025 PLT 162 02/24/2025 Clinical information reviewed: Date of last liquid: 03/02/25 Time of last liquid: 0200 Date of last solid: 03/01/25 Time of last solid: 1999 Physical Exam Airway Mallampati: II TM distance: >3 FB Neck ROM: limited Upper bite lip test: II Mouth opening: >= 4 cm Comments: Reduced ROM due to pain Cardiovascular - normal exam Dental - normal exam Pulmonary - normal exam Neurological - normal exam Abdominal - normal exam Anesthesia Plan ASA 2 general Planned airway equipment includes endotracheal tube. Patient will be monitored via standard ASA monitoring.(A-line) intravenous induction Anesthetic plan and risks discussed with patient. Plan discussed with COST ESTIMATING CLERK. documented in this encounter Plan of Treatment Not on file documented as of this encounter Procedures Procedure Name Priority Date/Time Associated Diagnosis Comments HC ARTERIAL CATH SAMP/MNTR Routine 03/02/2025 7:55 AM EDT [facility] AN PIV LDA Routine 03/02/2025 7 :45 AM EDT HC MIDLINE INSERTION/PIV Routine 03/02/2025 7:45 AM EDT ANESTHESIA INTUBATION Routine 03/02/2025 7:36 AM EDT documented in this encounter Results * HC ARTERIAL CATH SAMP/MNTR (03/02/2025 7:55 AM EDT) Marbin Osuna CRNA - 03/02/2025 7:55 AM EDT Marbin Hidalgo CRNA 03/02/2025 8:42 AM Arterial Line Authorized by: Shauna Valladares MD Performed by: Deshawn Olsen Date/Time: 03/02/2025 7:55 AM Guidance: ultrasound guided Patient location: OR Indication: continuous blood pressure monitoring, blood sampling needed Procedure Detail Catheter size: 20 G Catheter length: 1 and 3/4 inch Catheter type: Arrow Seldinger technique used. Site: left radial artery Securement method: suture Events: patient tolerated procedure well with no complications us Shauna Valladares MD ANESTHESIA ORDERABLES Vidhi l Result * HC MIDLINE INSERTION/PIV, [facility] AN PIV LDA (03/02/2025 7:45 AM EDT) Marbin Osuna CRNA - 03/02/2025 7:45 AM EDT Marbin Hidalgo CRNA 03/02/2025 8:42 AM Peripheral IV Authorized by: Shauna Valladares MD Performed by: Marbin Hidalgo CRNADate/Time: 03/02/2025 7:45 AM Placement Needle size: 20 G Laterality: left Location: forearm Site prep: alcohol Technique: anatomical landmarks Attempts: 2 Shauna Valladares MD ANESTHESIA ORDERABLES Vidhi l Result * AN SINGLE LUMEN INTUBATION (03/02/2025 7:36 AM EDT) Marbin Osuna CRNA - 03/02/2025 7:36 AM EDT Marbin Hidalgo CRNA 03/02/2025 8:42 AM Intubation Authorized by: Shauna Valladares MD Performed by: Deshawn Olsen Date/Time: 03/02/2025 7:36 AM Reason: elective Indications and Patient Condition Indications for airway management: anesthesia and airway protection Sedation level: general anesthesia Preoxygenated: yesPatient position: sniffing Mask difficulty assessment: 1 - vent by mask Final Airway Details Final airway type: endotracheal airway Endotracheal tube type: ETT Cuffed: yes Successful intubation technique: video laryngoscopy Adjuncts used in placement: intubating stylet Endotracheal tube insertion site: oral Blade: Mckenzie Blade size: #3 ETT size (mm): 7.5 Cormack-Lehane Classification: grade I - full view of glottis Placement verified by: chest auscultation and capnometry Measured from: lips ETT to lips (cm): 21 Number of attempts at approach: 1 Additional Comments Atraumatic Intubation. Lips, gums, and dentition unchanged and as preop. Bilateral BS and chest rise, ETCO2 confirmed Shauna Valladares MD ANESTHESIA ORDERABLES Vidhi l Result documented in this encounter Visit Diagnoses Not on filedocumented in this encounter Administered Medications Inactive Administered Medications - up to 3 most recent administrations Medication Order MAR Action Action Date Dose Rate Site ceFAZolin (ANCEF) 2 g in sodium chloride 0.9 % (NS) MBP 50 mL IVPB 2 g Once, intravenous, Administer over 30 Minutes, On Dina 03/02/25 at 0700, For 1 dose, Pre-op, Please choose an indication: Surgical Prophylaxis New Bag 03/02/2025 8:00 AM EDT 2 g dexmedeTOMIDine (PRECEDEX) injection As needed, intravenous, Starting on Dina 03/02/25 at 0828, Anesthesia Intra-op Given 03/02/2025 9:33 AM EDT 2.5 mcg Given 03/02/2025 9:30 AM EDT 5 mcg Given 03/02/2025 9:11 AM EDT 2.5 mcg fentaNYL PF (SUBLIMAZE) injection As needed, intravenous, Starting on Dina 03/02/25 at 0733, Anesthesia Intra-op Given 03/02/2025 10:00 AM EDT 50 mcg Given 03/02/2025 7:33 AM EDT 50 mcg lactated Ringer's infusion 100 mL/hr Continuous, intravenous, Starting on Dina 03/02/25 at 0700, Pre-op Rate/Dose Verify 03/02/2025 11:05 PM EDT 100 mL/hr 100 mL/hr Continued by Anesthesia 03/02/2025 7:28 AM EDT 100 mL/hr New Bag 03/02/2025 7:00 AM EDT 100 mL/hr 100 mL/hr lactated Ringer's infusion Continuous PRN, intravenous, Starting on Dina 03/02/25 at 0745, Anesthesia Intra-op New Bag 03/02/2025 7:45 AM EDT lidocaine (LTA) 4 % solution As needed, laryngotracheal, Starting on Dina 03/02/25 at 0736, Anesthesia Intra-op Given 03/02/2025 7:36 AM EDT 0.5 Applications lidocaine (XYLOCAINE) injection 2% As needed, intravenous, Starting on Dina 03/02/25 at 0733, Anesthesia Intra-op Given 03/02/2025 7:40 AM EDT 50 mg Given 03/02/2025 7:33 AM EDT 50 mg lidocaine 4 mg/mL in dextrose 5% intravenous infusion Continuous PRN, intravenous, Starting on Dina 03/02/25 at 0733, Anesthesia Intra-op New Bag 03/02/2025 7:33 AM EDT 1.6 mg/min 24 mL/hr magnesium sulfate 500 mg/mL (50 %) injection As needed, intravenous, Starting on Dina 03/02/25 at 0828, Anesthesia Intra-op Given 03/02/2025 8:28 AM EDT 1 g mupirocin (BACTROBAN) 2 % ointment intraNASAL, As needed, Starting on Dina 03/02/25 at 0828, Anesthesia Intra-op Given 03/02/2025 8:28 AM EDT 1 Application naloxone (NARCAN) injection As needed, intravenous, Starting on Dina 03/02/25 at 1023, Anesthesia Intra-op Given 03/02/2025 10:23 AM EDT 0.1 mg ondansetron (ZOFRAN) injection As needed, intravenous, Starting on Dina 03/02/25 at 0952, Anesthesia Intra-op Given 03/02/2025 9:52 AM EDT 4 mg phenylephrine (OSCAR-SYNEPHRINE) 20 mg in sodium chloride 0.9 % (NS) 250 mL infusion Continuous PRN, intravenous, Starting on Dina 03/02/25 at 0739, Anesthesia Intra-op Rate/Dose Change 03/02/2025 9:35 AM EDT 20 mcg/min 15 mL/hr Rate/Dose Change 03/02/2025 9:32 AM EDT 25 mcg/min 18.75 m L/hr Rate/Dose Change 03/02/2025 9:20 AM EDT 30 mcg/min 22.5 mL /hr phenylephrine (OSCAR-SYNEPHRINE) injection As needed, intravenous, Starting on Dina 03/02/25 at 0735, Anesthesia Intra-op Given 03/02/2025 10:19 AM EDT 100 mc g Given 03/02/2025 8:48 AM EDT 100 mcg Given 03/02/2025 8:11 AM EDT 100 mcg propofol (DIPRIVAN) injection 10 mg/mL bolus As needed, intravenous, Starting on Dina 03/02/25 at 0733, Anesthesia Intra-op Given 03/02/2025 7:35 AM EDT 30 mg Given 03/02/2025 7:33 AM EDT 120 mg propofoL (DIPRIVAN) injection Continuous PRN, intravenous, Starting on Dina 03/02/25 at 0737, Anesthesia Intra-op New Bag 03/02/2025 7:37 AM EDT 150 mcg/kg/min 67.77 mL/hr remifentaniL (ULTIVA) injection Continuous PRN, intravenous, Starting on Dina 03/02/25 at 0737, Anesthesia Intra-op New Bag 03/02/2025 7:37 AM EDT 0.125 mcg/kg/min rocuronium (ZEMURON) injection As needed, intravenous, Starting on Dina 03/02/25 at 0733, Anesthesia Intra-op Given 03/02/2025 7:33 AM EDT 5 mg succinylcholine (ANECTINE) injection As needed, intravenous, Starting on Dina 03/02/25 at 0734, Anesthesia Intra-op Given 03/02/2025 7:34 AM EDT 120 mg documented in this encounter Care Teams Master Planner Relationship Specialty Start Date End Date Krishan Caldwell MD [address] [place] [address] PCP - General Adolescent Medicine 03/02/25 documented as of this encounter
--- OUTSIDE RECORDS SUMMARY | 2025-03-02 06:30 | XMS_ITS | Encounter Summary ---
Author Organization [email or web address] ([place], [place], [place], [place], [place]) Address [address] [place] [address] Care Team Providers Care Railroad Auditor Name Role Phone Krishan Caldwell MD Primary Care Provider + [phone] Reason for Visit * Auth/Cert (Routine) Specialty Diagnoses / Procedures Referred By Contac t Referred To Contact Diagnoses Disease of spinal cord (HCC) SEE PRIMARY DX Procedures MS ARTHRD PST/PSTLAT TQ 1NTRSPC CRV BELW C2 SEGMENT MS ARTHRODESIS PST/PSTLAT TQ 1NTRSPC EA ADDL NTRSPC LAMINECTOMY, SPINE, CERVICAL, POSTERIOR APPROACH, WITH FUSION, PRONE POSITION [facility] [place] [address] Phone: tel: fax: [facility] [place] [address] Phone: tel: fax: Referral ID Status Reason Start Date Expiration Date Visits Re quested Visits Authorized [id number] 1 1 Encounter Details Date Type Department Care Team (Late st Contact Info) Description 03/02/2025 7:30 AM EDT - 03/02/2025 12:29 PM EDT Surgery [facility] [place] [address] Julio César Carvajal MD [address] [place] [address] C3-C5 POSTERIOR CERVICAL FUSION WITH NEUROMONITORING Social History Tobacco Use Types Packs/Day Years [...] your living situation today? I have a [facility] place to live 03/02/2025 Think about the [...] Do you speak a language other than [place]ar[place] at [facility]? No 03/02/2025 Do you want help with [...] Sign Reading Time Taken Comments Blood Pressure 127/63 03/02/2025 12:05 PM EDT Pulse 65 03/02/2025 12:05 PM EDT Temperature 36.1 C (97 F) 03/02/2025 11:45 AM EDT Respiratory Rate 16 03/02/2025 12:05 PM EDT Oxygen Saturation 100% 03/02/2025 12:05 PM EDT Inhaled Oxygen Concentration - - [...] Your Medications These medications were sent to [facility] - [facility] [address], [place] [address] cyclobenzaprine 5 MG tablet docusate sodium 100 MG capsule oxyCODONE-acetaminophen 5-325 mg per tablet Physical Exam GEN: NAD NEURO: GCS 465 4/5 throughout (effort and pain limited) Incision is clean, dry, and dressed C-collar in place Discharge Instructions Discharge Follow UP: Contact information for follow-up Julio César Carvajal MD Specialty: Neurosurgery, Neurological Surgery [address] [place] [address] Next Steps: Follow up Julio César Carvajal MD Specialty: Neurosurgery, Neurological Surgery [address] [place] [address] Next Steps: Follow up Electronically signed by [...] * How to Prevent Constipation After Surgery (Nicaraguan) * How to Use an Incentive Spirometer (Nicaraguan) documented in this encounter Medications at Time [...] César Carvajal MD Specialty: Neurosurgery, Neurological Surgery [address] [place] [address] Next Steps: Follow up Julio César Carvajal MD Specialty: Neurosurgery, Neurological Surgery [address] [place] [address] Next Steps: Follow up Transporation Provider: (P) FAMILY Transporation Contact Name: Transportation Provider Phone: Date of furniture assembly supervisor: (P) 03/05/25 Time of furniture assembly supervisor: LBM-03/05. Pt dc'd to [facility] via family. No other CM needs noted. [...] By: Name and Date of Assisted by: color laboratory technician Precautions Weight-Bearing Status: No Restrictions Precautions: [...] equipment discharge needs at this time. Goals Gmrtmt-dz-rxh: By the target date, patient will perform fjlwkg-mk-ldl with complete independence, utilizing no assistive device, to improve independence with bed mobility. Ick-nb-rjwte: By the target date, patient will perform [...] Catalan PA-C - 03/05/2025 8:49 AM EDT [facility]: Patient: Lavinia [...] of breast cancer Hypertension Hypothyroidism History of [place] (myocardial infarction) Coronary atherosclerosis of [place] coronary artery s/p stents Diabetes mellitus, type [...] kidney function. Feels comfortable taking her to [facility] today. Objective Vitals: Temp: [98.2 ??F [...] rhonchi. Abdomen: Soft, nontender/nondistended. Positive bowel sounds. ADMINISTRATIVE TECHNICIAN: Alert oriented x4. No gross focal neuro deficits, appeals and generalist clerk equal bilaterally, normal sensation. Musculoskeletal: Range of [...] mcg oral QAM (0600) 112 mcg at 03/05/25 0544 losartan-hydrochlorothiazide 2 tablet oral Daily 2 tablet [...] mL oral Daily PRN De Catalan PA-C 15mL at 03/04/25 1849 ondansetron (ZOFRAN-ODT) disintegrating tablet [...] Range POC-GLUCOSE 110 70 - 110 mg/dL Certified Athletic Trainer [id number] Glucose, Nova Meter Status: None Collection Time: 03/04/25 9:04 PM Result Value Ref Range POC-GLUCOSE 99 70 - 110 mg/dL Certified Athletic Trainer [id number] Glucose, Nova Meter Status: None Collection Time: 03/05/25 5:56 AM Result Value Ref Range POC-GLUCOSE 84 70 - 110 mg/dL Certified Athletic Trainer [id number] Basic Metabolic Panel Status: Abnormal Collection Time: [...] XR spine cervical 2 or 3 views [[id number]] Collected: 03/04/25925 Order Status: Completed Updated: 03/04/25939 [...] Mancia PA-C. FL C-ARM < 1 HOUR [[id number]] Collected: 03/02/25 1443 Order Status: Completed Updated: [...] By: Name and Date of Assisted by: color laboratory technician Precautions Weight-Bearing Status: No Restrictions Precautions: [...] equipment discharge needs at this time. Goals Kfepno-ia-uao: By the target date, patient will perform zzjyrb-bg-axo with complete independence, utilizing no assistive device, to improve independence with bed mobility. Aln-xw-ixjfg: By the target date, patient will perform [...] Catalan PA-C - 03/04/2025 9:21 AM EDT [facility]: Patient: Lavinia [...] of breast cancer Hypertension Hypothyroidism History of [place] (myocardial infarction) Coronary atherosclerosis of [place]bil[place] coronary artery s/p stents Diabetes mellitus, type [...] rhonchi. Abdomen: Soft, nontender/nondistended. Positive bowel sounds. ADMINISTRATIVE TECHNICIAN: Alert oriented x4. No gross focal neuro deficits, appeals and generalist clerk equal bilaterally, normal sensation. Musculoskeletal: Range of [...] Julio César Carvajal MD 100 mL/hr at 03/02/252304 100 mL/hr at 03/02/25 230 spironolactone (ALDACTONE) tablet 25 mg 25 mg oral Daily Valencia Harmon MD 25 mg at 03/04/25 0829 PRN Meds: @MEDSPRN@ Labs: Results for orders placed or performed during the hospital encounter of 03/02/25 (from the past 24 hours) Glucose, Nova Meter Status: None Collection Time: 03/03/25 10:35 AM Result Value Ref Range POC-GLUCOSE 104 70 - 110 mg/dL Certified Athletic Trainer [id number] Glucose, Nova Meter Status: Abnormal Collection Time: 03/03/25 4:04 PM Result Value Ref Range POC-GLUCOSE 125 (H) 70 - 110 mg/dL Certified Athletic Trainer [id number] Glucose, Nova Meter Status: Abnormal Collection Time: 03/03/25 8:17 PM Result Value Ref Range POC-GLUCOSE 121 (H) 70 - 110 mg/dL Certified Athletic Trainer [id number] Glucose, Nova Meter Status: None Collection Time: 03/04/25 5:08 AM Result Value Ref Range POC-GLUCOSE 99 70 - 110 mg/dL Certified Athletic Trainer [id number] Radiology: Radiology Results (last 3 days) Procedure Component Value Units Date/Time XR spine cervical 2 or 3 views - In process [[id number]] Resulted: 03/03/25 0944 Order Status: Sent Updated: 03/03/25 1007 This result has not been signed. Information might be incomplete. FL C-ARM < 1 HOUR [[id number]] Collected: 03/02/25 1443 Order Status: Completed Updated: [...] note, since the hospital's version of the [employer] EMR requires attestations for mid-level providers. * Marbin Loya MD - 03/03/2025 6:49 PM EDT [facility]: Patient: Lavinia [...] of breast cancer Hypertension Hypothyroidism History of LA (myocardial infarction) Coronary atherosclerosis of [place]-bil[place] coronary artery s/p stents Diabetes mellitus, type [...] bilaterally. Abdomen: Soft. Nontender. Positive bowel sounds. ADMINISTRATIVE TECHNICIAN: Alert oriented x3. No gross neurological focal deficits. Musculoskeletal: Range of motion is normal. No pedal edema. Skin: Warm and dry on exposed surface. Psychiatry: Mood appropriate Medications: Scheduled Meds: acetaminophen 1,000 mg oral Q6H 1,000 mg at 03/03/25 1814 atorvastatin 40 mg oral Every Night 40 mg at 03/02/252123 bisoprolol 5 mg oral Daily 5 mg at 03/03/25 0917 docusate sodium 100 mg oral BID 100 mg at 03/03/25 0917 enoxaparin 30 mg subcutaneous Q24H 30 mg at 03/03/25 1033 famotidine 20 mg oral Daily 20 mg at 03/03/25 0917 hydrOXYzine pamoate 25 mg oral Every Night 25 mg at 03/02/252123 insulin lispro 0-6 Units subcutaneous 4x Daily AC levothyroxine 112 mcg oral QAM (00) 112 mcg at 03/03/25 0508 losartan-hydrochlorothiazide 2 [...] POC-GLUCOSE 131 (H) 70 - 110 mg/dL Certified Athletic Trainer [id number] CBC (Hemogram only) Status: Abnormal Collection Time: [...] POC-GLUCOSE 130 (H) 70 - 110 mg/dL Certified Athletic Trainer [id number] Glucose, Nova Meter Status: None Collection Time: 03/03/25 10:35 AM Result Value Ref Range POC-GLUCOSE 104 70 - 110 mg/dL Certified Athletic Trainer [id number] Glucose, Nova Meter Status: Abnormal Collection Time: 03/03/25 4:04 PM Result Value Ref Range POC-GLUCOSE 125 (H) 70 - 110 mg/dL Certified Athletic Trainer [id number] Radiology: Radiology Results (last 3 days) Procedure Component Value Units Date/Time XR spine cervical 2 or 3 views - In process [[id number]] Resulted: 03/03/25 0944 Order Status: Sent Updated: 03/03/25 1007 This result has not been signed. Information might be incomplete. FL C-ARM < 1 HOUR [[id number]] Collected: 03/02/25 1443 Order Status: Completed Updated: [...] Discharge: (P) None Patient Discharge Goal: (P) Snf Facility Mandated Reporting: (P) Not applicable PT/OT/INTEGRITY DIRECTOR Recommendations PT Recommendations: OT Recommendations: INTEGRITY DIRECTOR Recommendations: CM consulted for rehab placement. Met with pt and family at bedside to discuss DCP. They state theycalled [facility] 2 weeks ago and requests a bed [...] NEUROMONITORING; Surgeon: Julio César Carvajal MD; Location: [facility]; Service: Neurological Surgery; Laterality: N/A; TUBAL [...] Mobility Not assessed, patient ambulatory. Outcome Measures [facility] Basic Mobility Inpatient Short Form How [...] equipment discharge needs at this time. Goals Kqqncw-ud-cmi: By the target date, patient will perform qfdmzr-mq-eah with complete independence, utilizing no assistive device, to improve independence with bed mobility. Byj-sb-gpppd: By the target date, patient will perform [...] EDT PT Evaluation Completed * Jose Mcnair OTR/L - 03/03/2025 2:16 PM EDT Images from the original note were not included. [facility] Inpatient Occupational Therapy [...] NEUROMONITORING; Surgeon: Julio César Carvajal MD; Location: [facility]; Service: Neurological Surgery; Laterality: N/A; TUBAL [...] Flexion 4-/5 4-/5 Wrist Extension 4-/5 4-/5 Job Hand Strength Good Good MMT tested at or below shoulder level secondary to spinal precautions. Coordination/Sensation Aoqtqb-rj-vbtp: SERGE (3) Minimal Impairment: Able to accomplish activity; slightly less than normal control, speed, and steadiness, RUE (3) Minimal Impairment: Able to accomplish activity; slightly less than normal control, speed, and steadiness Finger opposition: SERGE (2) Moderate Impairment: Able to accomplish activity; [...] body dressing:Maximal Assistance Toileting:Maximal Assistance Outcome Measures [facility] Daily Living Functional Assessment How much help [...] (Minimal/Contact guard/Supervision/Setup) 4=None (Modified independent/Independent) The patient's [facility] raw score is 15. The patient currently has 56.46% functional impairment. Clinicians are most likely to recommend inpatient/SNF/intermediate project manager care for patients with scores between 6-17, [...] with Educational OTADL Handout and AE including: breaker up machine operator, sock aide, long handled shoehorn, and long [...] prior level of function. The patient's current [facility] score of 15 would indicate that the patient will likely be appropriate for inpatient rehab/SNF/ intermediate project manager care post hospitalization. Plan Recommendations Discharge recommendations: [...] Bang PA-C - 03/03/2025 7:10 AM EDT [facility] NEUROSUR[facility]ERY PROGRESS NOTE Subjective Patient reports her [...] POC-GLUCOSE 131 (H) 70 - 110 mg/dL Certified Athletic Trainer [id number] CBC (Hemogram only) Status: Abnormal Collection Time: [...] POC-GLUCOSE 130 (H) 70 - 110 mg/dL Certified Athletic Trainer [id number] Glucose, Nova Meter Status: None Collection Time: 03/03/25 10:35 AM Result Value Ref Range POC-GLUCOSE 104 70 - 110 mg/dL Certified Athletic Trainer [id number] FL C-ARM < 1 HOUR Narrative: FLUOROSCOPY [...] Aneesh Castillo. Transcribed by Maco Malin PA-C. Assessment POD 1 C3-5 PCF Plan [...] 03/02/2025 108 70 - 110 mg/dL Final Certified Athletic Trainer 03/02/2025 [id number] Final No image results found. Assessment & Plan Disease of spinal cord -to OR for scheduled procedure XIN, at risk History of breast cancer Hypertension Hypothyroidism History of LA (myocardial infarction) Coronary atherosclerosis of tun[place]-bil[place]i coronary artery s/p stents - on plavix, last dose on 02/16/2025 Diabetes mellitus, type II - on Ozempic, last dose on 02/15/2025 CKD (chronic kidney disease), stage III Electronically signed by: Leslie Virgen PA-C, 03/02/2025 Cosigned by Julio César Carvajal MD at 03/02/2025 1:07 PM EDT documented in this encounter Consult Notes * Valencia Harmon MD - 03/02/2025 4:31 PM EDT [facility] ADMITT[facility] H&P: PCP: Krishan [...] of breast cancer Hypertension Hypothyroidism History of LA (myocardial infarction) Coronary atherosclerosis of tun[place]-bil[place]i coronary artery s/p stents Diabetes mellitus, type [...] bilaterally. Abdomen: Soft. Nontender. Positive bowel sounds. ADMINISTRATIVE TECHNICIAN: Still lethargic after surgery no follow command [...] Range POC-GLUCOSE 108 70 - 110 mg/dL Certified Athletic Trainer [id number] Glucose, Nova Meter Collection Time: 03/02/25 10:34 AM Result Value Ref Range POC-GLUCOSE 100 70 - 110 mg/dL Certified Athletic Trainer [id number] FL C-ARM < 1 HOUR Result Date: [...] monitoring system was set up by a training technician. Baseline MEPs and SSEPs were performed. [...] was then used to create 12 mm menhaden vessel pilot holes bilaterally. The holes were probed [...] to the screw heads bilaterally. A 7 Khmer flat Avila-Cortez drain was then placed in [...] - 110 mg/dL 03/05/2025 10:43 AM EDT [facility] Comment: In the event of poor peripheral blood flow, venous or arterial blood should be used due to the potential of erroneous results. Notified Nurse RBV Certified Athletic Trainer [id number] 03/05/2025 10:43 AM EDT [facility] Blood WHOLE BLOOD / Unknown 03/05/2025 10:41 AM EDT 03/05/2025 10:43 AM EDT Narrative [facility] - 03/05/2025 10:43 AM EDT Certified Athletic Trainer ID is - [id number] us Julio César Carvajal MD POINT OF CARE TEST ORDERABLES Final Result Performing Organization Address City/State/[facility] Co de Phone Number [facility] [address] [phone] * (ABNORMAL) Basic Metabolic Panel (03/05/2025 9:37 AM EDT) Sodium 139 136 - 145 meq/L 03/05/2025 10:33 AM EDT [facility] Potassium 4.4 3.4 - 5.1 meq/L 03/05/2025 10:33 AM EDT [facility] CO2 22 22 - 29 meq/L 03/05/2025 10:33 AM EDT [facility] Chloride 108 98 - 112 meq/L 03/05/2025 10:33 AM EDT [facility] Glucose 139(H) 82 - 115 mg/dL 03/05/2025 10:33 AM EDT [facility] BUN 17.9 9.8 - 20.1 mg/dL 03/05/2025 10:33 AM EDT [facility] Creatinine 1.20(H) 0.57 - 1.11 mg/dL 03/05/2025 10:33 AM EDT [facility] BUN/Creatinine 15 8 - 20 03/05/2025 10:33 AM EDT [facility] Calcium 8.8 8.4 - 10.2 mg/dL 03/05/2025 10:33 AM EDT [facility] Anion Gap 13(H) 4 - 12 03/05/2025 10:33 AM EDT [facility] eGFR (mL/min/1.73m2) 47(L) >=60 mL/min/1.7 3m2 03/05/2025 10:33 AM EDT [facility] Comment:ESTIMATED GFR IS NOT ACCURATE CREATININE CLEARANCE IN PREDICTING GLOMERULAR FILTRATION RATE. ESTIMATED GFR IS NOT APPLICABLE FOR DIALYSIS PATIENTS. Osmolality Calc 281.7 mOsm/kg 10:33 AM EDT [facility] Blood Venipuncture / Unknown 03/05/2025 9:37 AM EDT 03/05/2025 10:10 AM EDT De Catalan PA-C LAB BLOOD ORDERABLES Final Res ult Performing Organization Address City/[facility]/ZIP Co de Phone Number [facility] [address] [phone] * Glucose, Nova Meter (03/05/2025 5:56 AM EDT) [facility] POC-GLUCOSE 84 70 - 110 mg/dL 03/05/2025 5:57 AM EDT [facility] Comment: In the event of poor peripheral blood flow, venous or arterial blood should be used due to the potential of erroneous results. Notified Nurse RBV Certified Athletic Trainer [id number] 03/05/2025 5:57 AM EDT [facility] Blood WHOLE BLOOD / Unknown 03/05/2025 5:56 AM EDT 03/05/2025 5:57 AM EDT Narrative [facility] - 03/05/2025 5:57 AM EDT Certified Athletic Trainer ID is - [id number] us Julio César Carvajal MD POINT OF CARE TEST ORDERABLES Final Result Performing Organization Address City/[facility]/ZIP Co de Phone Number [facility] [address] [phone] * Glucose, Nova Meter (03/04/2025 9:04 PM EDT) Pathologist [facility] POC-GLUCOSE 99 70 - 110 mg/dL 03/04/2025 9:06 PM EDT [facility] Comment: In the event of poor peripheral blood flow, venous or arterial blood should be used due to the potential of erroneous results. Notified Nurse RBV Certified Athletic Trainer [id number] 03/04/2025 9:06 PM EDT [facility] Blood WHOLE BLOOD / Unknown 03/04/2025 9:04 PM EDT 03/04/2025 9:06 PM EDT [facility] - 03/04/2025 9:06 PM EDT Certified Athletic Trainer ID is - [id number] Julio César Carvajal MD POINT OF CARE TEST ORDERABLES Final Result Performing Organization Address [facility]/ZIP Co de Phone Number [facility] [address] [phone] * Glucose, Nova Meter (03/04/2025 4:09 PM EDT) [facility] POC-GLUCOSE 110 70 - 110 mg/dL 03/04/2025 4:11 PM EDT [facility] Comment: In the event of poor peripheral blood flow, venous or arterial blood should be used due to the potential of erroneous results. Notified Nurse RBV Certified Athletic Trainer [id number] 03/04/2025 4:11 PM EDT [facility] Blood WHOLE BLOOD / Unknown 03/04/2025 4:09 PM EDT 03/04/2025 4:11 PM EDT [facility] - 03/04/2025 4:11 PM EDT Certified Athletic Trainer ID is - [id number] us Julio César Carvajal MD POINT OF CARE TEST ORDERABLES Final Result [facility] [address] [phone] * (ABNORMAL) Glucose, Nova Meter (03/04/2025 10:29 AM EDT) POC-GLUCOSE 119(H) 70 - 110 mg/dL 03/04/2025 10:31 AM EDT [facility] Comment: In the event of poor peripheral blood flow, venous or arterial blood should be used due to the potential of erroneous results. Notified Nurse RBV Certified Athletic Trainer [id number] 03/04/2025 10:31 AM EDT [facility] Blood WHOLE BLOOD / Unknown 03/04/2025 10:29 AM EDT 03/04/2025 10:31 AM EDT Narrative [facility] - 03/04/2025 10:31 AM EDT Certified Athletic Trainer ID is - [id number] us Julio César Carvajal MD POINT OF CARE TEST ORDERABLES Final Result Performing Organization Address [facility]/ZIP Co de Phone Number [facility] [address] [phone] * Glucose, Nova Meter (03/04/2025 5:08 AM EDT) POC-GLUCOSE 99 70 - 110 mg/dL 03/04/2025 5:09 AM EDT [facility] Comment: In the event of poor peripheral blood flow, venous or arterial blood should be used due to the potential of erroneous results. Notified Nurse RBV Certified Athletic Trainer [id number] 03/04/2025 5:09 AM EDT [facility] Blood WHOLE BLOOD / Unknown 03/04/2025 5:08 AM EDT 03/04/2025 5:09 AM EDT Narrative [facility] - 03/04/2025 5:09 AM EDT Certified Athletic Trainer ID is - [id number] us Julio César Carvajal MD POINT OF CARE TEST ORDERABLES Final Result Performing Organization Address City/[facility]/ZIP Co de Phone Number [facility] [address] [phone] * (ABNORMAL) Glucose, Nova Meter (03/03/2025 8:17 PM EDT) POC-GLUCOSE 121(H) 70 - 110 mg/dL 03/03/2025 8:18 PM EDT [facility] Comment: In the event of poor peripheral blood flow, venous or arterial blood should be used due to the potential of erroneous results. Notified Nurse RBV Certified Athletic Trainer [id number] 03/03/2025 8:18 PM EDT [facility] Blood WHOLE BLOOD / Unknown 03/03/2025 8:17 PM EDT 03/03/2025 8:18 PM EDT Narrative [facility] - 03/03/2025 8:18 PM EDT Certified Athletic Trainer ID is - [id number] Julio César Carvajal MD POINT OF CARE TEST ORDERABLES Final Result Performing Organization Address [facility] Co de Phone Number [facility] [address] [phone] * (ABNORMAL) Glucose, Nova Meter (03/03/2025 4:04 PM EDT) POC-GLUCOSE 125(H) 70 - 110 mg/dL 03/03/2025 4:06 PM EDT [facility] Comment: In the event of poor peripheral blood flow, venous or arterial blood should be used due to the potential of erroneous results. Notified Nurse RBV Certified Athletic Trainer [id number] 03/03/2025 4:06 PM EDT [facility] Blood WHOLE BLOOD / Unknown 03/03/2025 4:04 PM EDT 03/03/2025 4:06 PM EDT Narrative [facility] - 03/03/2025 4:06 PM EDT Certified Athletic Trainer ID is - [id number] us Julio César Carvajal MD POINT OF CARE TEST ORDERABLES Final Result Performing Organization Address City/[facility]/ZIP Co de Phone Number [facility] [address] [place] [address], [facility] [phone] * Glucose, Nova Meter (03/03/2025 10:35 AM EDT) POC-GLUCOSE 104 70 - 110 mg/dL 03/03/2025 10:37 AM EDT [facility] Comment: In the event of poor peripheral blood flow, venous or arterial blood should be used due to the potential of erroneous results. Notified Nurse RBV Certified Athletic Trainer [id number] 03/03/2025 10:37 AM EDT [facility] Blood WHOLE BLOOD / Unknown 03/03/2025 10:35 AM EDT 03/03/2025 10:37 AM EDT Narrative [facility] - 03/03/2025 10:37 AM EDT Certified Athletic Trainer ID is - [id number] us Julio César Carvajal MD POINT OF CARE TEST ORDERABLES Final Result Performing Organization Address [facility]/State/[facility] Co de Phone Number [facility] [address] [phone] * XR spine cervical 2 or 3 [...] - 110 mg/dL 03/03/2025 5:40 AM EDT [facility] Comment: In the event of poor peripheral blood flow, venous or arterial blood should be used due to the potential of erroneous results. Notified Nurse RBV Certified Athletic Trainer [id number] 03/03/2025 5:40 AM EDT [facility] Blood WHOLE BLOOD / Unknown 03/03/2025 5:39 AM EDT 03/03/2025 5:40 AM EDT Narrative [facility] - 03/03/2025 5:40 AM EDT Certified Athletic Trainer ID is - [id number] Julio César Carvajal MD POINT OF CARE TEST ORDERABLES Final Result [facility] [address] [phone] * (ABNORMAL) Basic Metabolic Panel (03/03/2025 2:36 AM EDT) Sodium 141 136 - 145 meq/L 03/03/2025 3:28 AM EDT [facility] Potassium 5.0 3.4 - 5.1 meq/L 03/03/2025 3:28 AM EDT [facility] CO2 21(L) 22 - 29 meq/L 03/03/2025 3:28 AM EDT [facility] Chloride 109 98 - 112 meq/L 03/03/2025 3:28 AM EDT [facility] Glucose 125(H) 82 - 115 mg/dL 03/03/2025 3:28 AM EDT [facility] BUN 18.9 9.8 - 20.1 mg/dL 03/03/2025 3:28 AM EDT [facility] Creatinine 1.40(H) 0.57 - 1.11 mg/dL 03/03/2025 3:28 AM EDT [facility] BUN/Creatinine 14 8 - 20 03/03/2025 3:28 AM EDT [facility] Calcium 8.9 8.4 - 10.2 mg/dL 03/03/2025 3:28 AM EDT [facility] Anion Gap 16(H) 4 - 12 03/03/2025 3:28 AM EDT [facility] eGFR (mL/min/1.73m2) 39(L) >=60 mL/min/1.7 3m2 03/03/2025 3:28 AM EDT [facility] Comment:ESTIMATED GFR IS NOT ACCURATE CREATININE CLEARANCE IN PREDICTING GLOMERULAR FILTRATION RATE. ESTIMATED GFR IS NOT APPLICABLE FOR DIALYSIS PATIENTS. Osmolality Calc 285.0 mOsm/kg 3:28 AM EDT [facility] Blood Venipuncture / Unknown 03/03/2025 2:36 AM EDT 03/03/2025 2:53 AM EDT us Julio César Carvajal MD LAB BLOOD ORDERABLES Final Re sult [facility] [address] [phone] * (ABNORMAL) CBC (Hemogram only) (03/03/2025 2:36 AM EDT) WBC 9.9 4.0 - 10.0 K/ L 03/03/2025 2:57 AM EDT [facility] RBC 3.74(L) 3.93 - 5.22 M/ L 03/03/2025 2:57 AM EDT [facility] Hemoglobin 11.4 11.2 - 15.7 GM/DL 03/03/2025 2:57 AM EDT [facility] Hematocrit 34.8 34.1 - 44.9 % 03/03/2025 2:57 AM EDT [facility] MCV 93 79 - 95 fL 03/03/2025 2:57 AM EDT [facility] MCH 30.5 25.6 - 32.2 pg 03/03/2025 2:57 AM EDT [facility] MCHC 32.8 32.2 - 35.5 GM/DL 03/03/2025 2:57 AM EDT [facility] RDW 14.0 11.7 - 14.4 % 03/03/2025 2:57 AM EDT [facility] Platelets 172 140 - 375 K/CU MM 03/03/2025 2:57 AM EDT [facility] MPV 12.0 9.4 - 12.3 fL 03/03/2025 2:57 AM EDT [facility] Blood Venipuncture / Unknown 03/03/2025 2:36 AM EDT 03/03/2025 2:53 AM EDT us Julio César Carvajal MD LAB BLOOD ORDERABLES Final Re sult [facility] [address] [phone] * (ABNORMAL) Glucose, Nova Meter (03/02/2025 8:28 PM EDT) [facility] POC-GLUCOSE 131(H) 70 - 110 mg/dL 03/02/2025 8:29 PM EDT [facility] Comment: In the event of poor peripheral blood flow, venous or arterial blood should be used due to the potential of erroneous results. Notified Nurse RBV Certified Athletic Trainer [id number] 03/02/2025 8:29 PM EDT [facility] Blood WHOLE BLOOD / Unknown 03/02/2025 8:28 PM EDT 03/02/2025 8:29 PM EDT Narrative [facility] - 03/02/2025 8:29 PM EDT Certified Athletic Trainer ID is - [id number] us Julio César Carvajal MD POINT OF CARE TEST ORDERABLES Final Result [facility] [address] [phone] * (ABNORMAL) Basic Metabolic Panel (03/02/2025 5:41 PM EDT) Sodium 142 136 - 145 meq/L 03/02/2025 6:24 PM EDT [facility] Potassium 4.4 3.4 - 5.1 meq/L 03/02/2025 6:24 PM EDT [facility] CO2 18(L) 22 - 29 meq/L 03/02/2025 6:24 PM EDT [facility] Chloride 109 98 - 112 meq/L 03/02/2025 6:24 PM EDT [facility] Glucose 109 82 - 115 mg/dL 03/02/2025 6:24 PM EDT [facility] BUN 21.3(H) 9.8 - 20.1 mg/dL 03/02/2025 6:24 PM EDT [facility] Creatinine 1.38(H) 0.57 - 1.11 mg/dL 03/02/2025 6:24 PM EDT [facility] BUN/Creatinine 15 8 - 20 03/02/2025 6:24 PM EDT [facility] Calcium 9.3 8.4 - 10.2 mg/dL 03/02/2025 6:24 PM EDT [facility] Anion Gap 19(H) 4 - 12 03/02/2025 6:24 PM EDT [facility] eGFR (mL/min/1.73m2) 40(L) >=60 mL/min/1.7 3m2 03/02/2025 6:24 PM EDT [facility] Comment:ESTIMATED GFR IS NOT ACCURATE CREATININE CLEARANCE IN PREDICTING GLOMERULAR FILTRATION RATE. ESTIMATED GFR IS NOT APPLICABLE FOR DIALYSIS PATIENTS. Osmolality Calc 286.8 mOsm/kg 6:24 PM EDT [facility] Blood Venipuncture / Unknown 03/02/2025 5:41 PM EDT 03/02/2025 5:57 PM EDT us Valencia Harmon MD LAB BLOOD ORDERABLES Final Resul t Performing Organization Address City/[facility]/ZIP Co de Phone Number [facility] [address] [phone] * Glucose, Nova Meter (03/02/2025 10:34 AM EDT) POC-GLUCOSE 100 70 - 110 mg/dL 03/02/2025 10:35 AM EDT [facility] Comment: In the event of poor peripheral blood flow, venous or arterial blood should be used due to the potential of erroneous results. Notified Nurse RBV Certified Athletic Trainer [id number] 03/02/2025 10:35 AM EDT [facility] Blood WHOLE BLOOD / Unknown 03/02/2025 10:34 AM EDT 03/02/2025 10:35 AM EDT Narrative [facility] - 03/02/2025 10:35 AM EDT Certified Athletic Trainer ID is - [id number] us Julio César Carvajal MD POINT OF CARE TEST ORDERABLES Final Result Performing Organization Address [facility] Co de Phone Number [facility] [address] [phone] * [place] C-ARM < 1 HOUR (03/02/2025 [...] Aneesh Castillo. Transcribed by Maco Malin PA-C. Julio César Carvajal MD IMG FLUOROSCOPY ORDERABLES Fi nal Result * Glucose, Nova Meter (03/02/2025 7:02 AM EDT) POC-GLUCOSE 108 70 - 110 mg/dL 03/02/2025 7:04 AM EDT [facility] Comment: In the event of poor peripheral blood flow, venous or arterial blood should be used due to the potential of erroneous results. Protocols Followed Certified Athletic Trainer [id number] 03/02/2025 7:04 AM EDT [facility] Blood WHOLE BLOOD / Unknown 03/02/2025 7:02 AM EDT 03/02/2025 7:04 AM EDT Narrative [facility] - 03/02/2025 7:04 AM EDT Certified Athletic Trainer ID is - [id number] Julio César Carvajal MD POINT OF CARE TEST ORDERABLES Final Result [facility] [address] [phone] * Type and Screen (03/02/2025 6:59 AM EDT) ABO/Rh O Negative 03/02/2025 7:04 AM EDT [facility] (OR) Antibody Screen Negative 03/02/2025 7:04 AM EDT [facility] (OR) HISTCHK HIST CHECK PERFORMED 03/02/2025 7:04 AM EDT [facility] (OR) Blood Venipuncture / Unknown 03/02/2025 6:59 AM EDT 03/02/2025 7:04 AM EDT us Shauna Valladares MD [facility] BLOOD BANK TEST ORDERA BLES Final Result [facility] - BLOOD BANK (OR) [address] [facility] [address] [address], [facility] [phone] documented in this encounter Visit Diagnoses Diagnosis Cervical myelopathy (HCC)- Primary Cervical spondylosis with myelopathy Disease of spinal cord (HCC) Unspecified disease of spinal cord documented in this encounter Admitting Diagnoses Diagnosis [...] Given 03/03/2025 9:17 AM EDT 5 mg bupivacaine (MARCAINE) 0.25 % (2.5 mg/mL) injection As needed, Starting on Dina 03/02/25 at 0942, Intra-op Given 03/02/2025 9:42 AM EDT 30 mLs Nec k cyclobenzaprine (FLEXERIL) tablet 5 mg 5 mg [...] Do not wait on lab to treat docusate sodium (COLACE) capsule 100 mg 100 mg 2 times daily, oral, First dose on Dina 03/02/25 at 1030, Bowel Regimen - for prevention of constipation., Phase II/On Unit Given 03/05/2025 9:3 0 AM EDT 100 mg Given 03/04/2025 8:50 PM EDT 100 mg Given 03/04/2025 8:28 AM EDT 100 mg enoxaparin (LOVENOX) syringe 30 mg 30 mg Every 24 hours, subcutaneous, First dose on [facility] 03/02/25 at 1030, Renal dosing, Phase [...] Given 03/03/2025 9:17 AM EDT 20 mg glucagon injection 1 mg 1 mg Every [...] Given 03/04/2025 8:50 PM EDT 10 mg hydrOXYzine pamoate (VISTARIL) capsule 25 mg 25 mg Every Night, oral, First dose on [facility] 03/02/25 at 2100, Look-alike/Sound-alike medication Given 03/04/2025 8:50 PM EDT 25 mg Given 03/03/2025 8:47 PM EDT 25 mg Given 03/02/2025 9:24 PM EDT 25 mg insulin lispro (HUMALOG, ADMELOG) injection 0-6 Units 0-6 Units 4 times daily (before meals and nightly), subcutaneous, First dose on Dina 03/02/25 at 1700, If Blood Sugar is less than 180 between 2921-0346, DO NOT give corrective insulin unless otherwise [...] Given 03/03/2025 5:08 AM EDT 112 mcg lidocaine-epinephrine (XYLOCAINE W/EPI) 1 %-1:100,000 injection As needed, Starting on Dina 03/02/25 at 0831, Intra-op Given 03/02/2025 8:31 AM EDT 10 mLs Nec k losartan-hydrochlorothiazide (HYZAAR) 50-12.5 mg per tablet 2 [...] Given 03/04/2025 2:40 PM EDT 5 mg povidone-iodine (BETADINE) ointment 10% As needed, Starting on Dina 03/02/25 at 0815, Intra-op Given 03/02/2025 8:15 AM EDT 1 Application Other sodium chloride 0.9 % infusion 100 mL/hr Continuous, intravenous, Starting on Dina 03/02/25 at 1030, Phase II/On Unit Rate/Dose Verify 03/02/2025 11:05 PM EDT 100 mL/hr 100 mL/hr New Bag 03/02/2025 9:30 PM EDT 100 mL/hr 100 mL/hr New Bag 03/02/2025 2:18 PM EDT 100 mL/hr 100 mL/hr spironolactone (ALDACTONE) [...] Given 03/03/2025 9:17 AM EDT 25 mg thrombin (bovine) topical solution As needed, Starting on Dina 03/02/25 at 0850, Intra-op Given 03/02/2025 8:50 AM EDT 5,000 Units Nec k vancomycin (VANCOCIN) 1,000 mg in sodium chloride (NS) 0.9 % 1,000 mL irrigation As needed, Starting on Dina 03/02/25 at 0852, Until Dina 03/02/25 at 1027 Given 03/02/2025 8:52 AM EDT 1,000 mLs Neck documented in this encounter Active and Recently [...] for prevention of constipation., Phase II/On Unit 09 (Given - Provider: Nancy Celis RN)2046 (Given [...] RN) 1007 (Given - Provider: Marita Turcios, RN) 1118 (Given - Provider: Marita Turcios, RN) famotidine (PEPCID) tablet 20 mg 20 mg Daily, oral, First dose (after last modification) on Thu03/03/25 at 0900, Per Renal Impairment Dosing Policy Pharmacist to renally dose if CrCl is less than 50 mL/min or on CRRT., Pre-op 09 (Given - Provider: Nancy Celis RN) 08 (Given - Provider: Marita Turcios, RN) 09 (Given - Provider: Marita Turcios, RN) hydrOXYzine pamoate (VISTARIL) capsule 25 mg 25 mg Every Night, oral, First dose on Dina 03/02/25 at 2100, Look-alike/Sound-alike medication 2046 (Given - Provider: Neelima Love) 2049 (Given - Provider: Neelima Love) insulin lispro (HUMALOG, ADMELOG) injection 0-6 Units 0-6 Units 4 times daily (before meals and nightly), subcutaneous, First dose on Dina 03/02/25 at 1700, If Blood Sugar is less than 180 between 5390-9069, DO NOT give corrective insulin unless otherwise [...] Please store in patient med bin in [place] after each use and transfer with patient [...] Neelima Love) 1007 (Given - Provider: Marita Turcios RN) 0931 (See Alternative - Provider: Marita Turcios RN) bisacodyL (DULCOLAX) suppository 10 mg(Linked Group 1) 10 mg Daily as needed, rectal, constipation, Starting on Dina 03/02/25 at 1007, 1st line for treatment of constipation - give scheduled if no bowel movement in past 24 hours. Give suppository rectally if unable to take PO., Phase II/On Unit 2046 (See Alternative - Provider: Neelima Love) 1007 (See Alternative - Provider: Marita Turcios RN) 0931 (Given - Provider: Marita Turcios RN) cyclobenzaprine (FLEXERIL) tablet 5 mg 5 mg 3 times daily PRN, oral, muscle spasms, Starting on Dina 03/02/25 at 1007, Phase II/On Unit 0436 (Given - Provider: Wendy Iniguez, RN) 0829 (Given - Provider: Marita Turcios, RN) 1118 (Given - Provider: Marita Turcios, RN) dextrose 50% (D50W) injection 25 g 25 [...] Do NOT exceed 6 doses per order. 184 (Given - Provider: Marita Turcios RN) ondansetron [...] (if ordered). Look-alike/Sound-alike medication, Phase II/On Unit 043 (Given - Provider: Wendy Iniguez RN)1033 (Given - Provider: Nancy Celis RN)2349 (Given - Provider: Neelima Love) 0828 (Given - Provider: Marita Turcios RN)144 (Given - Provider: Marita Turcios RN)2049 (Given - Provider: Neelima Love) 111 (Given - Provider: Marita Turcios, NANNETTE) Linked [...] Unit documented in this encounter Care Teams Railroad Auditor Relationship Specialty Start Date End Date Krishan Caldwell MD [address] [place] [address] [place] [address] PCP - General Adolescent Medicine 03/02/25 documented as of this encounter
--- OUTSIDE RECORDS SUMMARY | 2025-03-07 04:15 | XMS_ITS ---
Author Organization [facility] Address [address] [place] [address] Care Team Providers Care Director Specialty Name Role Phone Krishan Caldwell Primary Care Provider [phone] Christa Mcleod Unavailable [phone] Allergies Allergen (clinical drug ingredient) Drug/Non Drug Allergy documented on EMR Reaction Allergy Type Onset Date Status niacin Niacin Unknown Drug Allergy Active REASON FOR VISIT [place] History and Physical Medications Medication SIG (Take, Route, Frequency, Duration) Notes Start Date End Date Status hydrOXYzine Pamoate 25 MG 1 capsule at b edtime orally Once a day; Duration: 14 days Active Levothyroxine Sodium 112 MCG 1 tab(s) or ally once a day; Duration: 90 days Active Azelastine HCl 137 MCG/SPRAY 2 spray(s) intranasally 2 times a day as needed; Duration: 30 days prn Active Atorvastatin Calcium 40 MG 1 tab(s) oral ly once a day Active Aspirin 81 MG 1 tab(s) orally once a day Active Clopidogrel Bisulfate 75 MG 1 tab(s) ora lly once a day Active Docusate Sodium 100 MG 1 capsule Orally twice a day Active Losartan Potassium-HCTZ 100-25 MG 1 tab(s) orally once a day Active Bisoprolol Fumarate 5 MG 1 tab(s) orally once a day Active Cyclobenzaprine HCl 5 MG 1 tablet as nee ded Orally 3 times a day Active oxyCODONE-Acetaminophen 5-325 MG 1 tablet as needed Orally every 6 hrs Active Ozempic (2 MG/DOSE) 8 MG/3ML 2 mg Subcut aneous once a week Active Spironolactone 25 MG 1 tablet Orally Onc e a day Active Problems Problem Type SNOMED Code ICD Code Onset Dates Problem Status W/U Status Risk Notes Problem Essential hypertension (19354717) Essential hypertension (I10) Active confirmed Problem Anemia (533479854) Mild anemia (D64.9) Active confirmed Problem Vitamin D deficiency (44063092) Vitamin D deficiency (E55.9) Active confirmed Problem Hypothyroidism (62756055) Unspecified hypothyroidism (E03.9) Active confirmed Vital Signs Temperature 98.3 degrees Fahrenheit 03/07/20 25 Blood pressure systolic 149 mm Hg 03/07/20 25 Blood pressure diastolic 73 mm Hg 025 Heart Rate 83 /min 03/07/2025 Height 65 in 03/07/2025 Weight 178.8 lbs 03/07/2025 BMI 29.75 kg/m2 03/07/2025 Encounters Encounter Location Date Provider Diagnosis [address] [address] 03/07/2025 Christa Shani S/P cervical spinal fusion Z98.1 ; Hospital discharge follow-up Z09 ; Essential hypertension I10 ; Mild anemia D64.9 ; Vitamin D deficiency E55.9 ; Unspecified hypothyroidism E03.9 ; Type 2 diabetes mellitus with other circulatory complications E11.59 and Chronic kidney disease, stage 3b N18.32 Assessments Encounter Date Diagnosis (ICD Code) Assessment Notes Treatment Notes Treatment Clinical Notes Section Notes 03/07/2025 S/P cervical spinal fusion (ICD-10 - Z98.1) Hospital documentation reviewed PT/OT as indicated Has surgical FU arranged Condition is stable at this time. Recent labs with mild anemia and very mildly low vitamin D - will add supplements CKD is stable Labs again in 2 weeks with A1C and TSH 03/07/2025 Hospital discharge follow-up (ICD-10 - Z09) 03/07/2025 Essential hypertension (ICD-10 - I10) 03/07/2025 Mild anemia (ICD-10 - D64.9) 03/07/2025 Vitamin D deficiency (ICD-10 - E55.9) 03/07/2025 Unspecified hypothyroidism (ICD-10 - E03.9) 03/07/2025 Type 2 diabetes mellitus with other circulatory complications (ICD-10 - E11.59) 03/07/2025 Chronic kidney disease, stage 3b (ICD-10 - N18.32) Plan Of Treatment Next Appt Details Follow Up: 1-2 weeks, Reason : Provider Name:Krishan Caldwell, 07/10/2025 10:00:00 AM, [address], [place], [address], Progress Notes * Lavinia IYER ADOB:1950 (74 yo F)Acc No.[id number]:03/07/2025 Patient: Lavinia FERRELL Provider: MARIUSZ Belcher :1950 A ge:74 Y S ex:Female Date:03/07/2025 Address:[address] [place] [address] [place], [id number] Pcp:Krishan Caldwell Subjective: * Chief Complaints: * 1 . [place] History and Physical. * HPI: I [place] History: Seen today at [place] for transition from [facility] following posterior cervical fusion of C3-5. No immediate surgical complications. Plan is for therapy here and return home with family. She does report some pain along her incision, dressing to be changed today. Still with some numbness in her upper extremities but improving some. Has FU arranged with her surgeon. Appetite is stable, bowel/bladder moving well. Denies concerns today. No indication of medication change on her DC summary but some are different than what we had documented based on her last visit to our office, updated as noted. Transition of care visit from hospital D ate of admission to hospital: 1 , D ate of receipt of hospital admission report: 1 ,?Date of discharge from hospital: 1 , D ate of receipt of hospital discharge summary: 1 , D ischarge medications reviewed and reconciled from hospital: M edications left unchanged. spoke with nursing staff at time of transfer regarding orders/plan. * ROS: R ESPIRATORY: no S hortness of breath. n o C ough. ? C ARDIOLOGY: no C hest pain. n o L eg edema. C ONSTITUTIONAL: no L oss of appetite. n o F ever. W eakness?yes, i mproving. D ERMATOLOGY: no R rand. G ASTROENTEROLOGY: no N ausea. n o V omiting. n o D iarrhea.?no C onstipation. M USCULOSKELETAL: See HPI Y es. N EUROLOGY: See HPI Y es. P SYCHOLOGY: Reviewed, No Symptoms Reported: Y es. U ROLOGY: no D ifficulty urinating. n o B lood in urine. * Medical History: H ypercholestrolemia, Hypertension, Hypothyroidism, Arthritis, Carpal tunnel, Breast cancer - s/p excicion 2017 - normal mammogram f/u 06/20 and normal 07/24 and normal 07/25, normal bone density DEXA scan July/2018 - also normal 04/2021, C-scope 12/19 with multiple tubular adenomas - repeated 12/20 with isolated tubular adenoma - repeat 02/22 with 2 tubular adenomas, Vertigo, Cervical DDD s/p fusion 2024, Vitamin D Deficiency, Chronic kidney disease, CAD with stenting 2023. * Surgical History: l umpectomy-rt breast 07/2016, Tubal ligation , 5 stents 06/2023, colonoscopy 01/2024, CATARACT- 05/10/24, 06/14/24 , Fusion of C spine 03/2025. * Hospitalization/Major Diagno stic Procedure: H MH 06/2023, C spine fusion 03/2025. * Family History: F ather: . M other: . P aternal Grand Father: . P aternal Grand Mother: . M aternal Grand Father: . M aternal Grand Mother: . Siblings: alive. C hildren: alive. 1 brother(s) . 2 daughter(s) - healthy. . N on-Contributory. * Social History: S moking: no A re you a:: nonsmoker. R ecreational drug use: no. Exercise: yes. Home smoke detector use: yes. Caffeine: yes, frequency: 4-5 glasses of tea daily. Living Will: Yes. Alcohol: no. Sexually active: yes. Travel outside [place]: no. 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 Lives home with . * Medications: T aking oxyCODONE-Acetaminophen 5-325 MG Tablet 1 tablet as needed Orally every 6 hrs , Taking Spironolactone 25 MG Tablet 1 tablet Orally Once a day , Taking Ozempic (2 MG/DOSE) 8 MG/3ML Solution Pen-injector 2 mg Subcutaneous once a week , Taking Docusate Sodium 100 MG Capsule 1 capsule Orally twice a day , Taking Cyclobenzaprine HCl 5 MG Tablet 1 tablet as needed Orally 3 times a day , Taking Bisoprolol Fumarate 5 MG Tablet 1 tab(s) orally once a day , Taking Losartan Potassium-HCTZ 100-25 MG Tablet 1 tab(s) orally once a day , Taking Clopidogrel Bisulfate 75 MG Tablet 1 tab(s) orally once a day , Taking Aspirin 81 MG Tablet Delayed Release 1 tab(s) orally once a day , Taking Atorvastatin Calcium 40 MG Tablet 1 tab(s) orally once a day , Taking Azelastine HCl 137 MCG/SPRAY Solution 2 spray(s) intranasally 2 times a day as needed , Notes to Pharmacist: prn, Taking Levothyroxine Sodium 112 MCG Tablet 1 tab(s) orally once a day , Taking hydrOXYzine Pamoate 25 MG Capsule 1 capsule at bedtime orally Once a day , Discontinued OZEMPIC 4 MG/3 ML SOLUTION 1 MG SUBCUTANEOUSLY ONCE A WEEK , Discontinued Irbesartan 75 MG Tablet 1 tab(s) orally once a day , Discontinued Tylenol Extra Strength 500 MG Tablet 2 tab(s) orally prn , Discontinued Voltaren 1 % Gel 2 g applied topically qid prn , Discontinued HAIR, SKIN, NAILS 5 MG CAPSULE 1 CAP(S) ORALLY ONCE A DAY , Discontinued Vitamin B-12 1000 MCG LOZENGE 1 JAMES SUBLINGUALLY ONCE A DAY , Discontinued Magnesium Oxide 400 MG Tablet 1 tab(s) orally bid , Discontinued tiZANidine HCl 4 MG Tablet 1-2 tab(s) orally every 8 hours PRN , Discontinued Meclizine HCl 25 MG Tablet 1 tablet as needed Orally every 12 hrs As needed, Discontinued Ondansetron HCl 4 MG Tablet 1 tab(s) orally every 8 hours as needed for nausea , Medication List reviewed and reconciled with the patient * Allergies: N iacin. Objective: * Vitals: P ain: 3, Temp: 98.3, RR: 18, HR: 83, BP: 149/73, Ht: 65, Wt: 178.8, BMI:29.75. * Examination: G eneral Examination: General P leasant and Cooperative, NAD on RA,. Oral cavity: M oist membranes. Heart: R egular Rate and Rhythm, no rubs or gallops. Lungs: c lear to auscultation,. Abdomen: s oft, NT/ND, BS present. Neurologic Exam: A lert and oriented x 3, grossly moves all extremities. Skin: w ithout acute rashes. Peripheral pulses: n ormal (2+) bilaterally. Extremities: n o clubbing, no edema,. neck s upple,, no lymphadenopathy,. Psych N ormal Mood/Affect. Assessment: * Assessment: 1. S /P cervical spinal fusion - Z98.1 (Primary) 2 . H ospital discharge follow-up - Z09 3 . E ssential hypertension - I10 4 . M ild anemia - D64.9 5 . V itamin D deficiency - E55.9 6 . U nspecified hypothyroidism - E03.9 7 . T ype 2 diabetes mellitus with other circulatory complications - E11.59 8 . C hronic kidney disease, stage 3b - N18.32 Plan: * Treatment: * Procedure Codes: 9 9496 TRANS CARE MGMT 7 DAY DISCH, 1111F DSCHRG MED/CURRENT MED MERGE * Follow Up: 1 -2 weeks * * Sign off status: Completed true * Provider: MARIUSZ Belcher Date: Generated for Sobeida rosenberg/Jena/eTbowensmitting on: 06/12/2024 10:07 AM EST History and Physical Notes * HPI (History of Present Illness) Category Sub-Category Detail Notes Category Not es [place] History Transition of care v isit from hospital Date of admission to hospital:: 03/02/2025 spoke with nursing staff at time of transfer regarding orders/plan. Date of receipt of hospital admission re port:: 03/05/2025 Date of discharge from hospital:: 2024 Date of receipt of hospital discharge ellison mmary:: 03/05/2025 Discharge medications review ed and reconciled from hospital:: Medications left unchanged Examination Category Sub-Category Detail Notes Category Not es General Examination Heart: Regular Rate and Rhythm, no rubs or gallops Lungs: clear to auscultatio n, Abdomen: soft, NT/ND, BS pres ent Extremities: no clubbing, no kole a, Skin: without acute rashes Neurologic Exam: Alert and oriented x 3, grossly moves all extremities Oral cavity: Moist membranes Peripheral pulses: normal (2+) bilatera lly neck supple,, no lymphade nopathy, General Pleasant and Coopera tive, NAD on RA, Psych Normal Mood/Affect
--- OUTSIDE RECORDS SUMMARY | 2025-03-21 09:30 | XMS_ITS ---
Author Organization [facility] Address [address] [place] [address] Care Team Providers Care Frame Nailer Name Role Phone Levy Caldwellhen Primary Care Provider [phone] Christa Mcleod Unavailable [phone] Allergies Allergen (clinical drug ingredient) Drug/Non Drug Allergy documented on EMR Reaction Allergy Type Onset Date Status niacin Niacin Unknown Drug Allergy Active REASON FOR VISIT [facility] Medications Medication SIG (Take, Route, Frequency, Duration) Notes Start Date End Date Status Bisoprolol Fumarate 5 MG 1 tab(s) orally once a day Active Losartan Potassium-HCTZ 100-25 MG 1 tab(s) orally once a day Active Clopidogrel Bisulfate 75 MG 1 tab(s) ora lly once a day Active Docusate Sodium 100 MG 1 capsule Orally twice a day Active Cyclobenzaprine HCl 5 MG 1 tablet as nee ded Orally 3 times a day Active Spironolactone 25 MG 1 tablet Orally Onc e a day Active Ozempic (2 MG/DOSE) 8 MG/3ML 2 mg Subcut aneous once a week Active Levothyroxine Sodium 112 MCG TAKE 1 TABL ET BY MOUTH EVERY DAY FOR 90 DAYS; Duration: 90 Active Aspirin 81 MG 1 tab(s) orally once a day Active Atorvastatin Calcium 40 MG 1 tab(s) oral ly once a day Active Azelastine HCl 137 MCG/SPRAY 2 spray(s) intranasally 2 times a day as needed; Duration: 30 days prn Active Problems Problem Type SNOMED Code ICD Code Onset Dates Problem Status W/U Status Risk Notes Problem Anxiety (46702553) Anxiety (F41.9) Active confirmed Vital Signs Temperature 97.9 degrees Fahrenheit 03/21/20 25 Blood pressure systolic 110 mm Hg 03/21/20 25 Blood pressure diastolic 73 mm Hg 025 Heart Rate 79 /min 03/21/2025 Height 65 in 03/21/2025 Weight 161.2 lbs 03/21/2025 BMI 26.82 kg/m2 03/21/2025 Encounters Encounter Location Date Provider Diagnosis [address] [address] 03/21/2025 Christa Mcleod S/P cervical spinal fusion Z98.1 ; Acute UTI N39.0 ; Hospital discharge follow-up Z09 ; Essential hypertension I10 ; Mild anemia D64.9 ; Vitamin D deficiency E55.9 ; Unspecified hypothyroidism E03.9 ; Type 2 diabetes mellitus with other circulatory complications E11.59 ; Chronic kidney disease, stage 3b N18.32 ; Anxiety F41.9 ; Urticaria L50.9 and DL (acute kidney injury) N17.9 Assessments Encounter Date Diagnosis (ICD Code) Assessment Notes Treatment Notes Treatment Clinical Notes Section Notes 03/21/2025 S/P cervical spinal fusion (ICD-10 - Z98.1) PT/OT as indicated Has surgical FU arranged 03/21/2025 Acute UTI (ICD-10 - N39.0) completing oral cefdinir, no symptoms 03/21/2025 Hospital discharge follow-up (ICD-10 - Z09) 03/21/2025 Essential hypertension (ICD-10 - I10) 03/21/2025 Mild anemia (ICD-10 - D64.9) 03/21/2025 Vitamin D deficiency (ICD-10 - E55.9) 03/21/2025 Unspecified hypothyroidism (ICD-10 - E03.9) 03/21/2025 Type 2 diabetes mellitus with other circulatory complications (ICD-10 - E11.59) 03/21/2025 Chronic kidney disease, stage 3b (ICD-10 - N18.32) 03/21/2025 Anxiety (ICD-10 - F41.9) add low dose buspirone 5mg at HS 03/21/2025 Urticaria (ICD-10 - L50.9) loratadine PRN ordered, pharmacy rec to [place] hydroxyzine 03/21/2025 DL (acute kidney injury) (ICD-10 - N17.9) mild bump in creatinine, recommend decrease aldactone to MWF only, encouraged better hydration and will repeat labs for comparison Plan Of Treatment Next Appt Details Follow Up: 4 Weeks,prn, Reas on: Provider Name:Krishan Caldwell, 07/10/2025 10:00:00 AM, [address], [place], [address], Progress Notes * JAYLON Lavinia ADOB:1950 (74 yo F)Acc No.[id number]:03/21/2025 Patient: Lavinia FERRELL Provider: MARIUSZ Belcher :1950 A ge:74 Y S ex:Female Date:03/21/2025 Address:[address] [place] [address] [place], [id number] Pcp:Krishan Caldwell Subjective: * Chief Complaints: * 1 . [facility] FU. * HPI: g en: 74 yr old female seen today at [facility] for transition again from acute care. She was admitted briefly to [facility] after acute onset ND here at facility. Dx with acute UTI as well as intractable NV?and has returned for continuing rehab. Initially admitted from [facility] following posterior cervical fusion of C3-5. No immediate surgical complications. Plan is for therapy here and return home with family. She does report some pain along her incision, dressing to be changed today. Still with some numbness in her upper extremities but improving some. Has FU arranged with her surgeon. Appetite is stable, bowel/bladder moving well. Today she notes no nausea, vomiting or dysuria. Bowels are moving. She does have localized incisional pain. NS FU isn't for about another 3-4 more weeks and she is anxious to go home. Lots of anxieites in the evening, not always sleeping well. * ROS: R ESPIRATORY: no S hortness [...] home with . * Medications: T aking Spironolactone 25 MG Tablet 1 tablet Orally [...] prn, Taking Levothyroxine Sodium 112 MCG Tablet TAKE 1 TABLET BY MOUTH EVERY DAY FOR 90 DAYS , Discontinued hydrOXYzine Pamoate 25 MG Capsule 1 capsule at bedtime orally Once a day , Discontinued oxyCODONE- Acetaminophen 5-325 MG Tablet 1 tablet as needed Orally every 6 hrs , Medication List reviewed and reconciled with the patient * Allergies: N iacin. Objective: * Vitals: P ain: 2, Temp: 97.9, RR: 18, HR: 79, BP: 110/73, Ht: 65, Wt: 161.2, BMI:26.82. * Examination: G eneral Examination: General P [...] N ormal Mood/Affect. Assessment: * Assessment: 1. A cute UTI - N39.0 (Primary) 2 . S /P cervical spinal fusion - Z98.1? 3. H ospital discharge follow-up - Z09 4 . E ssential hypertension - I10 5 . M ild anemia - D64.9 6 . V itamin D deficiency - E55.9 7 . U nspecified hypothyroidism - E03.9 8 . T ype 2 diabetes mellitus with other circulatory complications - E11.59 9 . C hronic kidney disease, stage 3b - N18.32 1 0. A nxiety - F41.9 1 1. U rticaria - L50.9 1 2. A KI (acute kidney injury) - N17.9 Plan: * Treatment: 2. S /P cervical spinal fusion Clinical Notes: PT/OT as indicated Has surgical FU arranged 3. A nxiety Clinical Notes: add low dose buspirone 5mg at HS 4. U rticaria Clinical Notes: loratadine PRN ordered, pharmacy rec to [place] hydroxyzine 5. A KI (acute kidney injury) Clinical Notes: mild bump in creatinine, recommend decrease aldactone to MWF only, encouraged better hydration and will repeat labs for comparison * Follow Up: 4 Weeks,prn * * Sign off status: Completed true * Provider: MARIUSZ Belcher Date: Generated for Sobeida rosenberg/Jena/Wilbur on: 06/12/2024 10:08 AM EST History and Physical Notes * Examination Category Sub-Category Detail Notes Category Not [...]
--- OUTSIDE RECORDS SUMMARY | 2025-03-28 10:00 | XMS_ITS ---
Author Organization [facility] Address [address] [place] [address] Care Team Providers Care Wire Frame Lampshade Maker Name Role Phone Krishan Caldwell Primary Care Provider Christa Mcleod [phone] Allergies Allergen (clinical drug ingredient) Drug/Non Drug Allergy documented on EMR Reaction Allergy Type Onset Date Status niacin Niacin Unknown Drug Allergy Active REASON FOR VISIT [place] Discharge Medications Medication SIG (Take, Route, Frequency, Duration) Notes Start Date End Date Status Levothyroxine Sodium 112 MCG TAKE 1 TABL ET BY MOUTH EVERY DAY FOR 90 DAYS; Duration: 90 Active Atorvastatin Calcium 40 MG 1 tab(s) oral ly once a day Active Aspirin 81 MG 1 tab(s) orally once a day Active Azelastine HCl 137 MCG/SPRAY 2 spray(s) intranasally 2 times a day as needed; Duration: 30 days prn Active Clopidogrel Bisulfate 75 MG 1 tab(s) ora lly once a day Active Docusate Sodium 100 MG 1 capsule Orally twice a day Active Ozempic (2 MG/DOSE) 8 MG/3ML 2 mg Subcut aneous once a week Active Bisoprolol Fumarate 5 MG 1 tab(s) orally once a day Active Cyclobenzaprine HCl 5 MG 1 tablet as nee ded Orally 3 times a day Active Losartan Potassium-HCTZ 100-25 MG 1 tab(s) orally once a day Active busPIRone HCl 5 MG 1 tablet Orally Once a day at bedtime Active Vital Signs Temperature 97.5 degrees Fahrenheit 03/28/20 25 Blood pressure systolic 113 mm Hg 03/28/20 25 Blood pressure diastolic 70 mm Hg 025 Heart Rate 82 /min 03/28/2025 Height 65 in 03/28/2025 Weight 156.6 lbs 03/28/2025 BMI 26.06 kg/m2 03/28/2025 Encounters Encounter Location Date Provider Diagnosis [place] [id number] [address] [address] 03/28/2025 Christa Mcleod S/P cervical spinal fusion Z98.1 ; Essential hypertension I10 ; Mild anemia D64.9 ; Vitamin D deficiency E55.9 ; Unspecified hypothyroidism E03.9 ; Type 2 diabetes mellitus with other circulatory complications E11.59 ; Chronic kidney disease, stage 3b N18.32 ; Anxiety F41.9 ; Urticaria L50.9 and DL (acute kidney injury) N17.9 Assessments Encounter Date Diagnosis (ICD Code) Assessment Notes Treatment Notes Treatment Clinical Notes Section Notes 03/28/2025 S/P cervical spinal fusion (ICD-10 - Z98.1) Labs still indicate an acute kidney injury with creatinine above her baseline. Recommend discontinue her spironolactone completely. Upon further conversation with her she has had a prescription for this for quite some time but had never started taking it, suspect this was started upon hospital discharge on the assumption she had been taking at home. Encouraged good fluid intake. Continue PT/OT as indicated Has surgical FU arranged Agree with plan to DC home with family for outpatient followup 03/28/2025 Essential hypertension (ICD-10 - I10) Well-controlled throughout her admission 03/28/2025 Mild anemia (ICD-10 - D64.9) Mild, stable 03/28/2025 Vitamin D deficiency (ICD-10 - E55.9) Continue oral supplement 03/28/2025 Unspecified hypothyroidism (ICD-10 - E03.9) Continue oral replacement 03/28/2025 Type 2 diabetes mellitus with other circulatory complications (ICD-10 - E11.59) Labs indicate good control, continue Ozempic 03/28/2025 Chronic kidney disease, stage 3b (ICD-10 - N18.32) Stop spironolactone, we will repeat labs in the office in a couple of weeks 03/28/2025 Anxiety (ICD-10 - F41.9) continue low dose buspirone 5mg at HS 03/28/2025 Urticaria (ICD-10 - L50.9) loratadine PRN ordered, pharmacy rec to DC hydroxyzine 03/28/2025 DL (acute kidney injury) (ICD-10 - N17.9) Plan Of Treatment Next Appt Details Follow Up: 2 Weeks,prn, Reas on: Provider Name:Krishan Caldwell, 07/10/2025 10:00:00 AM, [address], [address], [place], [address], Progress Notes * Perla IYERia ADOB:1950 (74 yo F)Acc No.[id number]:03/28/2025 Patient: Lavinia FERRELL Provider: MARIUSZ Belcher :1950 A ge:74 Y S ex:Female Date:03/28/2025 Address:[address] [place] [address] [place], [id number] Pcp:Krishan Caldwell Subjective: * Chief Complaints: * 1 . [place] Discharge. * HPI: g en: 74 yr old female seen today at [place] in anticipation of DC home at the end of this week, with family. Denies acute concerns. Last week we added low dose buspirone 5mg at HS for anxiety and mild insomnia. Denies side effects and feels this has been at least somewhat helpful. Thinks she will rest better at home. Initially admitted from [facility] following posterior cervical fusion of C3-5. No immediate surgical complications. She does report some pain along her incision, possibly from rubbing by her c collar. Still with some numbness in her upper extremities but improving and pain has resolved. Has FU arranged with her surgeon. Appetite is stable, bowel/bladder moving well. She has required one readmission at [facility] with acute NV and UTI - those symptoms now resolved. Today she notes no nausea, vomiting or dysuria. Bowels are moving. She does still have localized incisional pain. * ROS: R ESPIRATORY: no S hortness [...] EUROLOGY: See HPI Y es. P SYCHOLOGY: no D epression. H igh stress level yes. A nxiety y es. U ROLOGY: no D ifficulty urinating. [...] Deficiency, Chronic kidney disease, CAD with stenting 2023, Cervical DDD with stenosis. * Surgical History: l umpectomy-rt breast 07/2016, [...] Lives home with . * Medications: T florencio busPIRone HCl 5 MG Tablet 1 tablet Orally Once a day at bedtime , Taking Ozempic (2 MG/DOSE) 8 MG/3ML [...] EVERY DAY FOR 90 DAYS , Discontinued Spironolactone 25 MG Tablet 1 tablet Orally Once a day , Medication List reviewed and reconciled with the patient * Allergies: N iacin. Objective: * Vitals: P ain: 2, Temp: 97.5, RR: 18, HR: 82, BP: 113/70, Ht: 65, Wt: 156.6, BMI:26.06. * Examination: G eneral Examination: General P leasant and Cooperative, NAD on RA,. Oral cavity: M oist membranes. Heart: R egular Rate and Rhythm, no rubs or gallops. Lungs: c lear to auscultation,. Abdomen: s oft, NT/ND, BS present. Neurologic Exam: A lert and oriented x 3, grossly moves all extremities. Skin: w ithout acute rashes. edges of incision are well approximated, no erythema. Peripheral pulses: n ormal (2+) bilaterally. Extremities: n o clubbing, no edema,. neck s upple,, no lymphadenopathy,. Psych N ormal Mood/Affect. Assessment: * Assessment: 1. S /P cervical spinal fusion - Z98.1 (Primary) 2 . E ssential hypertension - I10 3 . M ild anemia - D64.9 4 . V itamin D deficiency - E55.9 5 . U nspecified hypothyroidism - E03.9 6 . T ype 2 diabetes mellitus with other circulatory complications - E11.59 7 . C hronic kidney disease, stage 3b - N18.32 8 . A nxiety - F41.9 9 . U rticaria - L50.9 1 0. A KI (acute kidney injury) - N17.9 Plan: * Treatment: 2. E ssential hypertension Clinical Notes: Well-controlled throughout her admission 3. M ild anemia Clinical Notes: Mild, stable 4. V itamin D deficiency Clinical Notes: Continue oral supplement 5. U nspecified hypothyroidism Clinical Notes: Continue oral replacement 6. T ype 2 diabetes mellitus with other circulatory complications Clinical Notes: Labs indicate good control, continue Ozempic 7. C hronic kidney disease, stage 3b Clinical Notes: Stop spironolactone, we will repeat labs in the office in a couple of weeks ? 8. A nxiety Clinical Notes: continue low dose buspirone 5mg at HS 9. U rticaria Clinical Notes: loratadine PRN ordered, pharmacy rec to DC hydroxyzine * Follow Up: 2 Weeks,prn * * Sign off status: Completed true * Provider: MARIUSZ Belcher Date: Generated for Sobeida rosenberg/Jena/Jostinitting on: 06/12/2024 10:07 AM EST History and Physical Notes * Examination Category Sub-Category Detail Notes Category Not es General Examination Heart: Regular Rate and Rhythm, no rubs or gallops Lungs: clear to auscultatio n, Abdomen: soft, NT/ND, BS pres ent Extremities: no clubbing, no kole a, Skin: without acute rashes . edges of incision are well approximated, no erythema Neurologic Exam: Alert and oriented x 3, grossly moves all extremities Oral cavity: Moist membranes Peripheral pulses: normal (2+) bilatera lly neck supple,, no lymphade nopathy, General Pleasant and Coopera tive, NAD on RA, Psych Normal Mood/Affect
--- OUTSIDE RECORDS SUMMARY | 2025-04-12 10:08 | XMS_ITS | Encounter Summary ---
Author Organization [employer] ([place], [place], [place], [place], [place]) Address [address] [place] [address] Care Team Providers Care Mergers And Acquisitions Consultant Name Role Phone Krishan Caldwell MD Primary Care Provider + [phone] Encounter Details Date Type Department Care Team [...] Date Record ed How often does anyone, shahbazvalencia landrum family and friends, physically hurt you? [...] Do you speak a language other than [place] at [facility]? No 03/02/2025 Do you want help [...] on filedocumented in this encounter Care Teams M[employer]ers And Acquisitions Consultant Relationship Specialty Start Date End Date Krishan Caldwell MD [address] [place] [address] PCP - General Adolescent Medicine 03/02/25 documented as of this encounter
--- OUTSIDE RECORDS SUMMARY | 2025-04-12 10:08 | XMS_ITS | Encounter Summary ---
Author Organization [employer] ([place], [place], [place], [place], [place]) Address [address] [place] [address] Care Team Providers Care Marketing Proposal Specialist Name Role Phone Unavailable Primary Care Provider [...]
--- OUTSIDE RECORDS SUMMARY | 2025-04-12 10:09 | XMS_ITS | Patient Health Record ---
Author Organization [facility] Address [address] [place] [address] Care Team Providers Care Bioinformatics Specialist Name Role Phone Krishan Caldwell Primary Care Provider [phone] Christa Mcleod Unavailable [phone] Migration, Provider Unavailable Unavailable Allergies Allergen (clinical [...] 0.3 0.0-0.4 K/mm3 BA# 0.1 0-0.2 K/mm3 M-Hemoglobin A1C Reviewed date:08/01/2024 05:08:21 PM Interpretation: [...] HDL 42 40-60 mg/dl CHLHDL 2.6 1-3.5 M-Comprehensive Metabolic Pa luli Reviewed date:05/05/2024 12:28:12 [...] tab(s) ora lly once a day Active Aspirin 81 MG 1 tab(s) orally once a day Active busPIRone HCl 5 MG 1 tablet Orally Once a day at bedtime Active Ozempic (2 MG/DOSE) 8 MG/3ML 2 mg Subcut aneous once a week Active Docusate Sodium 100 MG 1 capsule Orally twice a day Active Cyclobenzaprine HCl 5 MG 1 tablet as nee ded Orally 3 times a day Active Atorvastatin Calcium 40 MG 1 tab(s) oral ly once a day Active Azelastine HCl 137 MCG/SPRAY 2 spray(s) intranasally 2 times a day as needed; Duration: 30 days prn Active Levothyroxine Sodium 112 MCG TAKE 1 TABL ET BY MOUTH EVERY DAY FOR 90 DAYS; Duration: 90 Active Immunizations Vaccine Route Administration Date Status Comme nts Adacel (Tdap) IM Intramuscular 07/06/2015 Administered Problems Problem Type SNOMED Code ICD Code Onset Dates Problem Status W/U Status Risk Notes Problem Peripheral circulatory disorder associated with diabetes mellitus (956472750) Type 2 diabetes mellitus with other circulatory complications (E11.59) Active confirmed Problem Polyneuropathy (76052148) Polyneuropathy in diseases classified elsewhere (G63) Active confirmed Problem Atherosclerotic heart disease of [place] coronary artery without angina pectoris (738967309212240) Atherosclerotic heart disease of [place] coronary artery without angina pectoris (I25.10) Active confirmed Problem Cervical radiculopathy (86959708) Cervical neuralgia (M54.12) Active confirmed Problem Anxiety (68232415) Anxiety (F41.9) Active confi rmed Problem Vitamin D deficiency (30534627) Vitamin D deficiency (E55.9) Active confirmed Problem Arthritis (2110069) Arthritis (M19.90) Active confirmed Problem Essential hypertension (39707541) Essential hypertension (I10) Active confirmed Problem Hyperlipidemia (57197067) Hyperlipemia, idiopathic familial (E78.5) Active confirmed Problem Vitamin B12 deficiency (non anemic) (44118335) B12 deficiency (E53.8) Active confirmed Problem Personal history of primary malignant neoplasm of breast (328751286) History of breast cancer (Z85.3) Active confirmed Problem Hypothyroidism (59510870) Unspecified hypothyroidism (E03.9) Active confirmed Problem Postmenopausal bleeding (93105052) Post-menopausal bleeding (N95.0) Active confirmed Problem Diabetic peripheral neuropathy associated with type 2 diabetes mellitus (2145246374931) Type 2 diabetes mellitus with diabetic neuropathy, without long-term current use of insulin (E11.40) Active confirmed Problem Stasis dermatitis (disorder) (73859044) Stasis dermatitis of both legs (I87.2) Active confirmed Problem Anemia (853003787) Mild anemia (D64.9) Active confirmed Problem Chronic kidney disease stage 3B (disorder) (466374967) Chronic kidney disease, stage 3b (N18.32) Active confirmed Problem Cervical spinal stenosis (16662365) Cervical spinal stenosis (M48.02) Active confirmed Vital Signs Heart Rate 80 /min 04/12/2025 Temperature 97.6 degrees Fahrenheit 04/12/2025 Blood pressure diastolic 60 mm Hg 04/12/2025 Height 65 in 04/12/2025 Blood pressure systolic 130 mm Hg 04/12/2025 Weight 155.8 lbs 04/12/2025 BMI 25.92 kg/m2 04/12/2025 Encounters Encounter Location Date Provider Diagnosis [facility] [address] [facility] [address] [place] [address] 09/03/2024 Provider Migration [facility] [address] [facility] [address] [place] [address] 04/12/2025 Krishan Besekiry Hyperlipemia, idiopathic familial E78.5 ; B12 deficiency E53.8 ; Atherosclerotic heart disease of [place] coronary artery without angina pectoris I25.10 ; Type 2 diabetes mellitus with other circulatory complications E11.59 ; Vitamin D deficiency E55.9 ; Unspecified hypothyroidism E03.9 and Cervical spinal stenosis M48.02 [facility] [address] [place] [address] 05/04/2024 Krishan Caldwell Hyperlipemia, idiopathic familial E78.5 ; Acquired hypothyroidism E03.9 ; Stage 3a chronic kidney disease (CKD) N18.31 ; History of breast cancer Z85.3 and Rhinitis, unspecified type J31.0 [facility] [address] [place] [address] 08/01/2024 Krishan Caldwell Type 2 diabetes mellitus with diabetic neuropathy, without long-term current use of insulin E11.40 ; Atherosclerotic heart disease of [place] coronary artery without angina pectoris I25.10 ; Chronic kidney disease, stage 3b N18.32 ; High risk medication use Z79.899 ; Acquired hypothyroidism E03.9 ; Adenocarcinoma of right breast C50.911 ; Arthritis M19.90 ; Hypertension, essential I10 and Healthcare maintenance Z00.00 [facility] [address] [place] [address] 08/10/2024 Krishan Caldwell Post-menopausal bleeding N95.0 [facility] [address] [place] [address] 10/31/2024 Krishan Caldwell Impacted cerumen of right ear H61.21 [facility] [address] [place] [address] 11/14/2024 Krishan Caldwell Type 2 diabetes mellitus with diabetic neuropathy, without long-term current use of insulin E11.40 ; Chronic kidney disease, stage 3b N18.32 ; History of breast cancer Z85.3 and Vertigo R42 [facility] [address] [place] [address] 02/15/2025 Krishan Caldwell Hypertension, essent ial I10 ; Acquired hypothyroidism E03.9 ; Type 2 diabetes mellitus with other circulatory complications E11.59 ; Chronic kidney disease, stage 3b N18.32 and Cervical neuralgia M54.[address] [place] [address] 03/07/2025 Christa Shani S/P cervical spinal fusion Z98.1 ; Hospital discharge follow-up Z09 ; Essential hypertension I10 ; Mild anemia D64.9 ; Vitamin D deficiency E55.9 ; Unspecified hypothyroidism E03.9 ; Type 2 diabetes mellitus with other circulatory complications E11.59 and Chronic kidney disease, stage 3b N18.[address] [place] [address] 03/21/2025 Christa Shani S/P cervical spinal fusion Z98.1 ; Acute UTI N39.0 ; Hospital discharge follow-up Z09 ; Essential hypertension I10 ; Mild anemia D64.9 ; Vitamin D deficiency E55.9 ; Unspecified hypothyroidism E03.9 ; Type 2 diabetes mellitus with other circulatory complications E11.59 ; Chronic kidney disease, stage 3b N18.32 ; Anxiety F41.9 ; Urticaria L50.9 and DL (acute kidney injury) N17.[address] [place] [address] 03/28/2025 Christa Shani S/P cervical spinal fusion Z98.1 ; Essential hypertension I10 ; Mild anemia D64.9 ; Vitamin D deficiency E55.9 ; Unspecified hypothyroidism E03.9 ; Type 2 diabetes mellitus with other circulatory complications E11.59 ; Chronic kidney disease, stage 3b N18.32 ; Anxiety F41.9 ; Urticaria L50.9 and DL (acute kidney injury) N17.9 [facility] [address] [facility] [address] [place] [address] 05/10/2024 Krishan Besson [facility] [address] [place] [address] 08/01/2024 Krishan Besson [facility] [address] [place] [address] 08/11/2024 Krishan Besson [facility] [address] [facility] [address] [place] [address] 11/14/2024 Krishan Besson [facility] [address] [facility] [address] [place] [address] 12/16/2024 Krishan Besson [facility] [address] [place] [address] 12/19/2024 Krishan Besson [facility] [address] [place] [address] 01/02/2025 Krishan Besson [facility] [address] [place] [address] 01/03/2025 Krishan Besson [facility] [address] [place] [address] 01/26/2025 Krishan Besson [facility] [address] [place] [address] 02/22/2025 Krishan Besson Vertigo R42 [facility] [address] [facility] [address] [place] [address] 03/10/2025 Krishan Besson [facility] [address] [place] [address] 03/17/2025 Christa Mcleod Assessments Encounter Date Diagnosis (ICD Code) Assessment Notes Treatment Notes Treatment Clinical Notes Section Notes 05/04/2024 Hyperlipemia, 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 I will review these personally 05/04/2024 Acquired hypothyroidism (ICD-10 - E03.9) Reviewed TSH and T4 levels 08/01/2024 Atherosclerotic heart disease of [place] coronary artery without angina pectoris (ICD-10 - [...] breast cancer and was on tamoxifen from 2978-9980. Will order TVUS to evaluate for causes [...] Good urine output, UAC and labs reviewed 02/15/2025 Hypertension, essential (ICD-10 - I10) Blood pressure under good control. No changes in plan 02/15/2025 Acquired hypothyroidism (ICD-10 - E03.9) Reviewed thyroid labs once again with patient. Quite frankly it was frustrating that patient had to go to an unnecessary endocrinology appointment but no changes in this plan at this point 02/22/2025 Vertigo (ICD-10 - R42) 03/07/2025 Hospital discharge follow-up (ICD-10 - Z09) 03/07/2025 S/P cervical spinal fusion (ICD-10 - Z98.1) Hospital documentation reviewed PT/OT as indicated Has surgical FU arranged Condition is stable at this time. Recent labs with mild anemia and very mildly low vitamin D - will add supplements CKD is stable Labs again in 2 weeks with A1C and TSH 03/21/2025 Acute UTI (ICD-10 - N39.0) completing oral cefdinir, no symptoms 03/21/2025 S/P cervical spinal fusion (ICD-10 - Z98.1) PT/OT as indicated Has surgical FU arranged 03/28/2025 Essential hypertension (ICD-10 - I10) Well-controlled throughout her admission 03/28/2025 S/P cervical spinal fusion (ICD-10 - [...] DC home with family for outpatient followup 04/12/2025 Hyperlipemia, idiopathic familial (ICD-10 - E78.5) 04/12/2025 B12 deficiency (ICD-10 - E53.8) 04/12/2025 Atherosclerotic heart disease of [place] coronary artery without angina pectoris (ICD-10 - I25.10) 03/28/2025 Mild anemia (ICD-10 - D64.9) Mild, stable 03/21/2025 Hospital discharge follow-up (ICD-10 - Z09) 03/07/2025 Essential hypertension (ICD-10 - I10) 02/15/2025 Type 2 diabetes mellitus with other circulatory complications (ICD-10 - E11.59) A1c has been well-controlled. No change in plans 11/14/2024 History of breast cancer (ICD-10 - [...] cerumen impaction will of help symptomatology. 02/15/2025 Chronic kidney disease, stage 3b (ICD-10 - N18.32) Recent creatinines have been stable. No changes. Patient's volume status appears good. I will follow-up with patient in 2 months, hopefully after helpful neurosurgery 03/07/2025 Mild anemia (ICD-10 - D64.9) 03/21/2025 Essential hypertension (ICD-10 - I10) 03/28/2025 Vitamin D deficiency (ICD-10 - E55.9) Continue oral supplement 04/12/2025 Type 2 diabetes mellitus with other circulatory complications (ICD-10 - E11.59) 04/12/2025 Vitamin D deficiency (ICD-10 - E55.9) 03/28/2025 Unspecified hypothyroidism (ICD-10 - E03.9) Continue oral replacement 03/21/2025 Mild anemia (ICD-10 - D64.9) 03/07/2025 Vitamin D deficiency (ICD-10 - E55.9) 02/15/2025 Cervical neuralgia (ICD-10 - M54.12) Patient scheduled for neurosurgery in first week of March. Will follow-up afterwards. 05/04/2024 Rhinitis, unspecified type (ICD-10 - J31.0) [...] changes 03/07/2025 Unspecified hypothyroidism (ICD-10 - E03.9) 03/21/2025 Vitamin D deficiency (ICD-10 - E55.9) 03/28/2025 Type 2 diabetes mellitus with other circulatory complications (ICD-10 - E11.59) Labs indicate good control, continue Ozempic 04/12/2025 Unspecified hypothyroidism (ICD-10 - E03.9) 04/12/2025 Cervical spinal stenosis (ICD-10 - M48.02) 03/28/2025 Chronic kidney disease, stage 3b (ICD-10 - N18.32) Stop spironolactone, we will repeat labs in the office in a couple of weeks 03/21/2025 Unspecified hypothyroidism (ICD-10 - E03.9) 03/07/2025 Type 2 diabetes mellitus with other circulatory complications (ICD-10 - E11.59) 08/01/2024 Arthritis (ICD-10 - M19.90) On Tylenol. Seems to have good symptom control 08/01/2024 Hypertension, essential (ICD-10 - I10) Good blood pressure control on current medications. No changes in plan 03/07/2025 Chronic kidney disease, stage 3b (ICD-10 - N18.32) 03/21/2025 Type 2 diabetes mellitus with other circulatory complications (ICD-10 - E11.59) 03/28/2025 Anxiety (ICD-10 - F41.9) continue low dose buspirone 5mg at HS 03/28/2025 Urticaria (ICD-10 - L50.9) loratadine PRN ordered, pharmacy rec to DC hydroxyzine 03/21/2025 Chronic kidney disease, stage 3b (ICD-10 - N18.32) 08/01/2024 Healthcare maintenance (ICD-10 - Z00.00) Up-to-date with colon screening and breast cancer follow-up. Declines vaccinations as noted. Labs ordered today. No recent falls. Functional status good. Depression screening negative. 03/28/2025 DL (acute kidney injury) (ICD-10 - N17.9) 03/21/2025 Anxiety (ICD-10 - F41.9) add low dose buspirone 5mg at HS 03/21/2025 Urticaria (ICD-10 - L50.9) loratadine PRN ordered, pharmacy rec to [place] hydroxyzine 03/21/2025 DL (acute kidney injury) (ICD-10 - N17.9) mild bump in creatinine, recommend decrease aldactone to MWF only, encouraged better hydration and will repeat labs for comparison Plan Of Treatment Pending Test Test Name Order Date Holter Monitor, 24 Hour 05/16/2009 Physical Therapy 02/21/2015 Mammogram : Bilateral 05/12/2016 Mammogram : Bilateral 09/06/2015 MRI : Hand, Right 07/27/2015 H-LIPID PANEL 12/03/2009 H-LIPID PANEL 11/06/2010 C-CBC 03/15/2012 C-CBC 06/18/2009 C-CBC 02/09/2017 C-CBC 04/08/2010 C-CMP 04/08/2010 C-CMP 02/09/2017 C-CMP 06/18/2009 C-CMP 03/15/2012 C-LIPID PANEL 03/15/2012 C-LIPID PANEL 06/18/2009 C-LIPID PANEL 04/08/2010 C-LIPID PANEL 02/09/2017 C-TSH 04/08/2010 C-TSH 02/09/2017 C-TSH 06/18/2009 C-URINE CULTURE 11/12/2009 C-MISC CULTURE 01/26/2012 Uric Acid, Serum 08/05/2012 M-Complete Blood Count Auto Diff 025 M-Urinalysis and Microscopic 04/12/2025 M-Comprehensive Metabolic Panel 04/12/20 25 M-Hemoglobin A1C 04/12/2025 M-Thyroid Panel 04/12/2025 M-Drug Screen,Urine 04/12/2025 M-Peripheral Smear Review 12/05/2020 M-Vitamin B12 12/05/2020 M-Vitamin B12 04/12/2025 M-Vitamin D 25 Hydroxy 04/12/2025 M-Iron and TIBC 12/05/2020 M-Microalb/Creat Ratio, Randm Ur 025 Future Test Test Name Order Date C-HGBA1C 12/29/2008 H-TSH 11/07/2013 Next Appt Details Provider Name:Krishan Cheng Seferinokeiry, 07/10/2025 10:00:00 AM, [address] [facility] [address], [place], [address], Insurance Providers Payer Name Payer Address Payer Phone Subscriber Number Group Number Insured Name Patient Relationship to Insured Coverage Start Date Coverage End Date [employer] [address] [address] [place] [address] [id number] Lavinia Iyer Self - patient is the [...] Chronic kidney disease CAD with stenting 2023 Cervical DDD with stenosis Surgical History Surgery Date(Month/Year) lumpectomy-rt breast 07/2016 Tubal ligation 1980s 5 stents 06/2023 colonoscopy 01/2024 [facility] 05/10/24, 06/14/24 Fusion of C spine 03/2025 Hospitalization History Reason Date(Month/Year) C spine fusion 03/2025 [facility] 06/2023
--- OUTSIDE RECORDS SUMMARY | 2025-04-12 10:09 | XMS_ITS | Clinical Summary ---
Author Organization [email or web address] ([place], [place], [place], [place], [place]) Address [address] [place] [address] Care Team Providers Care Retail Business Manager Name Role Phone Krishan Caldwell MD Primary Care Provider + [phone] Allergies Active Allergy Reactions Criticality Noted Date [...] thigh, or buttocks every 7 days Thursday02/22/2025. Active levothyroxine (SYNTHROID) 112 MCG tablet Take [...] (25 mg total) by mouth as needed. 5 Active ondansetron (ZOFRAN) 4 MG tablet Take 1 tablet (4 mg total) by mouth every 8 (eight) hours as needed. Active spironolactone (ALDACTONE) 25 MG tablet Take 1 tablet (25 mg total) by mouth daily. Active losartan-hydroC HLOROthiazide (HYZAAR) 100-25 mg per tablet Take 1 tablet by mouth daily. Active cyclobenzaprine (FLEXERIL) 5 MG tablet Take 1 tablet (5 mg total) by mouth 3 (three) times daily as needed for muscle spasms for up to 10 days. 30 tablet 5 03/14/20 docusate sodium (COLACE) 100 MG capsule Take 1 capsule (100 mg total) by mouth 2 (two) times daily for 10 days. 10 capsule 5 03/14/20 oxyCODONE-aceta minophen (PERCOCET) 5-325 mg per tablet Take 1 tablet by mouth every 6 (six) hours as needed for pain for up to 10 days Look-alike/So und-alike medication. Max Daily Amount: 4 tablets 20 tablet 03/14/20 Active Problems Problem Noted Date Diagnosed Date Hyperlipidemia 03/02/2025 Stented coronary artery 03/02/2025 Cervical myelopathy 02/24/2025 History of breast cancer 02/24/2025 Hypertension 02/24/2025 Hypothyroidism 02/24/2025 History of VT (myocardial infarction) 02/24/2025 Overview (02/24/2025): S/p PCI in 06/2023 Coronary atherosclerosis of [place] coronary justen ry 02/24/2025 Diabetes mellitus, type II 02/24/2025 CKD (chronic kidney disease), stage III 02/25/20 Resolved Problems Problem Noted Date Diagnosed Date Resolved Date Preoperative evaluation to r ule out surgical contraindication 02/24/2025 03/02/2025 Encounters Date Type Department Care Team Description 03/02/2025 7:30 AM EDT - 03/02/2025 12:29 PM EDT Surgery [facility] Operating Room [address] [place] [address] Julio César Carvajal MD C3-C5 POSTERIOR CERVICAL FUSION WITH NEUROMONITORING 03/02/2025 7:28 AM EDT Anesthesia Event [facility] Operating Room [address] [place] [address] Shauna Valladares MD 03/02/2025 5:59 AM EDT - 03/05/2025 12:45 PM EDT Hospital Encounter [facility] Orthopedic & Neurosurgery Unit [address] [place] [address] Julio César Carvajal MD Discharge Disposition: Hospice/Medical Facility 03/02/2025 Travel 02/24/2025 1:58 PM EDT - 02/24/2025 11:59 PM EDT Hospital Encounter [facility] Preadmission Testing [address] [place] [address] Preop testing (Primary Dx); Cervical myelopathy (HCC); History of breast cancer; Hypertension; Hypothyroidism; History of VT (myocardial infarction); Coronary atherosclerosis of [place] coronary artery; Diabetes mellitus, type II (HCC); [...] your living situation today? I have a [facility] place to live 03/02/2025 Think about the [...] Do you speak a language other than [place] at ho id? No 03/02/2025 Do you want help with [...] 1-dose 75+ series) 2024 COVID-19 VACCINE ( - 2024- season) 2025 07/26/2021, 12/04/2020, 11/13/2020 Influenza Vaccine (#1) 2025 DTAP/TDAP/TD VACCINES (3 - T d or Tdap) 07/06/2025 07/06/2015, 08/05/1996 Hemoglobin A1C 08/24/2025 02/24/2025 Tobacco Cessation Counseling and Screening (12+) 03/02/2026 03/02/2025 Medical Devices Implanted Type Area Enterprise Solutions Architect Device Identifier Shelf Expiration Date Model / Serial / Lot Bone Zakiya Formable Cell 5cc -1600-002 - [id number] Implanted:Qt y: 1 on 03/02/2025 by Julio César Carvajal MD at [place] IMPLANTS N/A: Posterior Cervical LIFENET:LIFENET TRANSPLANT SRV [id number] 02/15/2026 -1600- 002 / [id number] / Scr 4.0 Ply 3.5x14 1020-35-114 - [id number] Implanted:Qt y: 6 on 03/02/2025 by Julio César Carvajal MD at [place] IMPLANTS N/A: Posterior Cervical J &J:DEPUY:DEPUY SPINE 1020-35- 114 / 1020-35- 114 / St Scr 1020-00-000 - [id number] Implanted:Qt y: 6 on 03/02/2025 by Julio César Carvajal MD at [place] IMPLANTS N/A: Posterior Cervical J &J:DEPUY:DEPUY SPINE 1020-00- 000 / 1020-00- 000 / Jelani Ti Jelani 4.0x040 1020-64-040 - [id number] Implanted:Qt y: 2 on 03/02/2025 by Julio César Carvajal MD at [place] IMPLANTS N/A: Posterior Cervical J &J:DEPUY:DEPUY SPINE 1020-64- 040 / 1020-64- 040 / Procedures Procedure Name Priority Date/Time [...] ANESTHESIA INTUBATION Routine 03/02/2025 7:36 AM EDT AL ARTHRD PST/PSTLAT TQ 1NTRSPC CRV BELW C2 SEGMENT 03/02/2025 7:28 AM EDT Disease of spinal cord (HCC) NOVA GLUCOSE POC Routine 03/02/2025 7:0 2 AM EDT TYPE AND SCREEN ([place] BKR) [...] of13 resultswithin the time period is included. Pathologist [facility] POC-GLUCOSE 119(H) 70 - 110 mg/dL 03/05/2025 10:43 AM EDT [facility] Comment: In the event of poor peripheral blood flow, venous or arterial blood should be used due to the potential of erroneous results. Notified Nurse [facility] Home Health Administrator [phone] 03/05/2025 10:43 AM EDT [facility] Blood WHOLE BLOOD / Unknown 03/05/2025 10:41 AM EDT 03/05/2025 10:43 AM EDT Narrative [facility] - 03/05/2025 10:43 AM EDT Home Health Administrator ID is - [id number] us Julio César Carvajal MD POINT OF CARE TEST ORDERABLES Final Result [facility] [address] [place] [id number] [phone] * (ABNORMAL) Basic Metabolic Panel (03/05/2025 9:37 AM EDT) Only the most recent of4 resultswithin the time period is included. Sodium 139 136 - 145 meq/L 03/05/2025 10:33 AM EDT [facility] Potassium 4.4 3.4 - 5.1 meq/L 03/05/2025 10:33 AM T [facility] CO2 22 22 - 29 meq/L 03/05/2025 10:33 AM [facility] Chloride 108 98 - 112 meq/L 03/05/2025 10:33 AM [facility] Glucose 139(H) 82 - 115 mg/dL 03/05/2025 10:33 AM T [facility] BUN 17.9 9.8 - 20.1 mg/dL 03/05/2025 10:33 AM [facility] Creatinine 1.20(H) 0.57 - 1.11 mg/dL 03/05/2025 10:33 AM [facility] BUN/Creatinine 15 8 - 20 03/05/2025 10:33 AM [facility] Calcium 8.8 8.4 - 10.2 mg/dL 03/05/2025 10:33 AM [facility] Anion Gap 13(H) 4 - 12 03/05/2025 10:33 AM [facility] eGFR (mL/min/1.73m2) 47(L) >=60 mL/min/1.7 3m2 03/05/2025 10:33 AM [facility] Comment:ESTIMATED GFR IS NOT ACCURATE CREATININE CLEARANCE IN PREDICTING GLOMERULAR FILTRATION RATE. ESTIMATED GFR IS NOT APPLICABLE FOR DIALYSIS PATIENTS. Osmolality Calc 281.7 mOsm/kg 10:33 AM [facility] Blood Venipuncture / Unknown 03/05/2025 9:37 AM EDT 03/05/2025 10:10 AM EDT De Catalan PA-C LAB BLOOD ORDERABLES Final Res ult [facility] [address] [place] [address], [facility] [phone] * XR spine cervical 2 or 3 [...] Transcribed by Neelima Mancia PA-C. Julio César Carvaajl MD IMG DIAGNOSTIC IMAGING ORDERA BLES Final Result * (ABNORMAL) CBC (Hemogram only) (03/03/2025 2:36 AM EDT) Only the most recent of2 resultswithin the time period is included. WBC 9.9 4.0 - 10.0 K/ L 03/03/2025 2:57 AM EDT [facility] RBC 3.74(L) 3.93 - 5.22 M/ L 03/03/2025 2:57 AM EDT [facility] Hemoglobin 11.4 11.2 - 15.7 GM/DL 03/03/2025 2:57 AM EDT [facility] Hematocrit 34.8 34.1 - 44.9 % 03/03/2025 2:57 AM EDT [facility] MCV 93 79 - 95 fL 03/03/2025 2:57 AM EDT [facility] MCH 30.5 25.6 - 32.2 pg 03/03/2025 2:57 AM EDT [facility] MCHC 32.8 32.2 - 35.5 GM/DL 03/03/2025 2:57 AM EDT [facility] RDW 14.0 11.7 - 14.4 % 03/03/2025 2:57 AM EDT [facility] Platelets 172 140 - 375 K/CU MM 03/03/2025 2:57 AM EDT [facility] MPV 12.0 9.4 - 12.3 fL 03/03/2025 2:57 AM EDT [facility] Blood Venipuncture / Unknown 03/03/2025 2:36 AM EDT 03/03/2025 2:53 AM EDT us Julio César Carvajal MD LAB BLOOD ORDERABLES Final Re sult [facility] [address] [place] [id number], [facility] [phone] * [place] C-ARM < 1 HOUR (03/02/2025 [...] AN PIV LDA (03/02/2025 7:45 AM EDT) Narrative Marbin Hidalgo CRNA - 03/02/2025 7:45 AM EDT Marbin [...] ABO/Rh O Negative 03/02/2025 7:04 AM EDT [facility] ([place]) Antibody Screen Negative 03/02/2025 7:04 AM EDT [facility] ([place]) HISTCHK HIST CHECK PERFORMED 03/02/2025 7:04 AM EDT [facility] ([place]) Blood Venipuncture / Unknown 03/02/2025 6:59 AM EDT 03/02/2025 7:04 AM EDT us Shauna Valladares MD [facility] TEST ORDERA BLES Final Result [facility] ([place]) [address] [place] [address], [facility] [phone] * Hemoglobin A1c (02/24/2025 3:04 PM EDT) Hemoglobin A1C 5.6 4.0 - 5.6 % 02/24/2025 3:43 PM EDT [facility] Comment: Hemoglobin A1C levels are related to mean glucose during the preceding 2-3 months. Less than 7% demonstrates glycemic control in diabetic patients. Hemoglobin AlC % Suggested Diagnosis > or = 6.5 Diabetic 5.7 - 6.4 Prediabetic <5.7 Non-diabetic eAVG Glucose 114.02 70 - 126 mg/dL 02/24/2025 3:43 PM EDT [facility] Blood Venipuncture / Unknown 02/24/2025 3:04 PM EDT 02/24/2025 3:25 PM EDT us De Fox MD LAB BLOOD ORDERABLES Final Res ult Performing Organization Address City/[facility]/ZIP Co de Phone Number [facility] [address] [place] [address], [facility] [phone] * ABO/RH CONFIRMATION/RETYPE (02/24/2025 3:03 PM EDT) RETYPE O Negative 02/24/2025 3:23 PM EDT [facility] ([place]) Blood Venipuncture / Unknown 02/24/2025 3:03 PM EDT 02/24/2025 3:23 PM EDT us De Fox MD [facility] TEST ORDERABLES Final Result [facility] ([place]) [address] [place] [address], [facility] [phone] * (ABNORMAL) Urinalysis without Microscopic (02/24/2025 3:03 PM EDT) Color, UA Light Yellow 02/24/2025 3:39 PM EDT [facility] Clarity, UA Clear Clear 02/24/2025 3:39 PM EDT [facility] Specific [place], UA 1.014 1.005 - 1.030 02/24/2025 3:39 PM EDT [facility] pH, UA 5.0(L) 6.0 - 8.0 02/24/2025 3:39 PM EDT [facility] Leukocytes, UA Negative Negative 02/24/2025 3:39 PM EDT [facility] Nitrite, UA Negative Negative 02/24/2025 3:39 PM EDT [facility] Protein, UA Negative Negative 02/24/2025 3:39 PM EDT [facility] Glucose, UA Normal Normal 02/24/2025 3:39 PM EDT [facility] Ketones, UA Negative Negative 02/24/2025 3:39 PM EDT [facility] Urobilinogen, UA Normal Normal 02/24/2025 3:39 PM EDT [facility] Bilirubin, UA Negative Negative 02/24/2025 3:39 PM EDT [facility] Blood, UA Negative Negative 02/24/2025 3:39 PM EDT [facility] Specimen Source Urine, Clean Catch 02/24/2025 3:39 PM EDT [facility] Urine URINE SPECIMEN COLLECTION, CLEAN CATCH / Unknown 02/24/2025 3:03 PM EDT 02/24/2025 3:26 PM EDT us Julio César Carvajal MD URINE ORDERABLES Final Result [facility] [address] [place] [address], [facility] [phone] from Last 3 Months Insurance [id number] [id number] [employer] MEDICARE PART A ONLY Advance Directives For more information, please contact: [phone] Documents on File Type Date Recorded Patient Violin Repairer Expl anation Advance Directives and Livin g Will 03/02/2025 5:54 AM * Full Code (Latest Code Status on File) Date Activated Date Inactivated Comments 03/02/2025 9:09 AM 03/05/2025 2:09 PM Care Teams Retail Business Manager Relationship Specialty Start Date End Date Krishan Caldwell MD [address] [place] [address] PCP - General Adolescent Medicine 03/02/25
--- OUTSIDE RECORDS SUMMARY | 2025-04-12 10:09 | XMS_ITS | Referral Summary ---
Author Organization [employer] ([place], [place], [place], [place], [place]) Address [address] [place] [address] Care Team Providers Care Press Leader Name Role Phone Krishan Caldwell MD Primary Care Provider + [phone] Encounters Date Type Department Care Team Description 03/02/2025 5:59 AM EDT - 03/05/2025 12:45 PM EDT Hospital Encounter [facility] Orthopedic & Neurosurgery Unit [address] [place] [address] Julio César Carvajal MD Discharge Disposition: Hospice/Medical Facility 03/02/2025 7:28 AM EDT Anesthesia Event [facility] Operating Room 1 [place] [address] Shauna Valladares MD 03/02/2025 Travel 03/02/2025 7:30 AM EDT - 03/02/2025 12:29 PM EDT Surgery [facility] Operating Room 1 [place] [address] Julio César Carvajal MD C3-C5 POSTERIOR CERVICAL FUSION WITH NEUROMONITORING 02/24/2025 Travel 02/24/2025 1:58 PM EDT - 02/24/2025 11:59 PM EDT Hospital Encounter [facility] Preadmission Testing 1 [place] [address] Preop testing (Primary Dx); Cervical myelopathy (HCC); History of breast cancer; Hypertension; Hypothyroidism; History of [place] (myocardial infarction); Coronary atherosclerosis of [place] coronary artery; Diabetes mellitus, type II (HCC); [...] mouth every 8 (eight) hours as needed. 5 Active spironolactone (ALDACTONE) 25 MG tablet Take 1 tablet (25 mg total) by mouth daily. 5 Active losartan-hydroC HLOROthiazide (HYZAAR) 100-25 mg per tablet Take 1 tablet by mouth daily. Active cyclobenzaprine (FLEXERIL) 5 MG tablet Take 1 tablet (5 mg total) by mouth 3 (three) times daily as needed for muscle spasms for up to 10 days. 30 tablet 5 03/14/20 25 docusate sodium (COLACE) 100 MG capsule Take 1 capsule (100 mg total) by mouth 2 (two) times daily for 10 days. 10 capsule 03/14/20 25 oxyCODONE-aceta minophen (PERCOCET) 5-325 mg per tablet Take 1 tablet by mouth every 6 (six) hours as needed for pain for up to 10 days Look-alike/So und-alike medication. Max Daily Amount: 4 tablets 20 tablet 03/14/20 25 Active Problems Problem Noted Date Diagnosed Date Hyperlipidemia 03/02/2025 Stented coronary artery 03/02/2025 Cervical myelopathy 02/24/2025 History of breast cancer 02/24/2025 Hypertension 02/24/2025 Hypothyroidism 02/24/2025 History of [place] (myocardial infarction) 02/24/2025 Overview (02/24/2025): S/p PCI in 06/2023 Coronary atherosclerosis of [place] coronary justen ry 02/24/2025 Diabetes mellitus, type II 02/24/2025 CKD (chronic kidney disease), stage III 02/25/20 Resolved Problems Problem Noted Date Diagnosed Date Resolved Date Preoperative evaluation to gabrielle asencioe out surgical contraindication 02/24/2025 03/02/2025 Social History [...] living situation today? I have a [facility] place to live 03/02/2025 Think about [...] Do you speak a language other than Gabones[place] at ho dc? No 03/02/2025 Do you want help with [...] on file Medical Devices Implanted Type Area Gear Roller Device Identifier Shelf Expiration Date Model / Serial / Lot Bone Vivigen [facility] - [id number] Implanted:Qt y: 1 on 03/02/2025 by Julio César Carvajal MD at [facility] IMPLANTS N/A: Posterior Cervical LIFENET:LIFENET TRANSPLANT SRV [id number] 02/15/2026 -1600- 002 / [id number] / Scr 4.0 Ply 3.5x14 - - [id number] Implanted:Qt y: 6 on 03/02/2025 by Julio César Carvajal MD at [facility] IMPLANTS N/A: Posterior Cervical J &J:DEPUY:DEPUY SPINE 35 114 / 114 / St Scr - [id number] Implanted:Qt y: 6 on 03/02/2025 by Julio César Carvajal MD at [facility] IMPLANTS N/A: Posterior Cervical J &J:DEPUY:DEPUY SPINE 1020 000 / 000 / Jelani Ti Jelani 4.0x040 [id number] - [id number] Implanted:Qt y: 2 on 03/02/2025 by Julio César Carvajal MD at [facility] IMPLANTS N/A: Posterior Cervical J &J:DEPUY:DEPUY SPINE [...] ANESTHESIA INTUBATION Routine 03/02/2025 7:36 AM EDT MA ARTHRD PST/PSTLAT TQ 1NTRSPC CRV BELW C2 [...] resultswithin the time period is included. Pathologist [facility] POC-GLUCOSE 119(H) 70 - 110 mg/dL 03/05/2025 10:43 AM EDT [facility] Comment: In the event of poor peripheral blood flow, venous or arterial blood should be used due to the potential of erroneous results. Notified Nurse RBV Ladle Builder [id number] 03/05/2025 10:43 AM EDT [facility] Blood WHOLE BLOOD / Unknown 03/05/2025 10:41 AM EDT 03/05/2025 10:43 AM EDT Narrative [facility] - 03/05/2025 10:43 AM EDT Ladle Builder ID is - [id number] Julio César Carvajal MD POINT OF CARE TEST ORDERABLES Final Result [facility] [address] [phone] * (ABNORMAL) Basic Metabolic Panel (03/05/2025 9:37 AM EDT) Only the most recent of4 resultswithin the time period is included. [facility] Sodium 139 136 - 145 meq/L 03/05/2025 10:33 AM EDT [facility] Potassium 4.4 3.4 - 5.1 meq/L 03/05/2025 10:33 AM EDT [facility] CO2 22 22 - 29 meq/L 03/05/2025 10:33 AM EDT [facility] Chloride 108 98 - 112 meq/L 03/05/2025 10:33 AM EDT [facility] Glucose 139(H) 82 - 115 mg/dL 03/05/2025 10:33 AM EDT [facility] BUN 17.9 9.8 - 20.1 mg/dL 03/05/2025 10:33 AM EDT [facility] Creatinine 1.20(H) 0.57 - 1.11 mg/dL 03/05/2025 10:33 AM EDT [facility] BUN/Creatinine 15 8 - 20 03/05/2025 10:33 AM EDT [facility] Calcium 8.8 8.4 - 10.2 mg/dL 03/05/2025 10:33 AM EDT [facility] Anion Gap 13(H) 4 - 12 03/05/2025 10:33 AM EDT [facility] eGFR (mL/min/1.73m2) 47(L) >=60 mL/min/1.7 3m2 03/05/2025 10:33 AM EDT [facility] Comment:ESTIMATED GFR IS NOT ACCURATE CREATININE CLEARANCE IN PREDICTING GLOMERULAR FILTRATION RATE. ESTIMATED GFR IS NOT APPLICABLE FOR DIALYSIS PATIENTS. Osmolality Calc 281.7 mOsm/kg 10:33 AM EDT [facility] Blood Venipuncture / Unknown 03/05/2025 9:37 AM EDT 03/05/2025 10:10 AM EDT De Catalan PA-C LAB BLOOD ORDERABLES Final Res ult [facility] [address] [phone] * XR spine cervical 2 or 3 [...] 10.0 K/ L 03/03/2025 2:57 AM EDT [facility] RBC 3.74(L) 3.93 - 5.22 M/ L 03/03/2025 2:57 AM EDT [facility] Hemoglobin 11.4 11.2 - 15.7 GM/DL 03/03/2025 2:57 AM EDT [facility] Hematocrit 34.8 34.1 - 44.9 % 03/03/2025 2:57 AM EDT [facility] MCV 93 79 - 95 fL 03/03/2025 2:57 AM EDT [facility] MCH 30.5 25.6 - 32.2 pg 03/03/2025 2:57 AM EDT [facility] MCHC 32.8 32.2 - 35.5 GM/DL 03/03/2025 2:57 AM EDT [facility] RDW 14.0 11.7 - 14.4 % 03/03/2025 2:57 AM EDT [facility] Platelets 172 140 - 375 K/CU MM 03/03/2025 2:57 AM EDT [facility] MPV 12.0 9.4 - 12.3 fL 03/03/2025 2:57 AM EDT [facility] Blood Venipuncture / Unknown 03/03/2025 2:36 AM EDT 03/03/2025 2:53 AM EDT Julio César Carvajal MD LAB BLOOD ORDERABLES Final Re sult [facility] [address] [phone] * [place] C-ARM < 1 HOUR (03/02/2025 [...] ABO/Rh O Negative 03/02/2025 7:04 AM EDT [facility] BLOOD [facility] ([place]) Antibody Screen Negative 03/02/2025 7:04 AM EDT [facility] ([place]) HISTCHK HIST CHECK PERFORMED 03/02/2025 7:04 AM EDT [facility] ([place]) Blood Venipuncture / Unknown 03/02/2025 6:59 AM EDT 03/02/2025 7:04 AM EDT us Shauna Valladares MD [facility] BLOOD BANK TEST ORDERA BLES Final Result [facility] ([place]) [address] [place] [address], [facility] [phone] * Hemoglobin A1c (02/24/2025 3:04 PM EDT) Hemoglobin A1C 5.6 4.0 - 5.6 % 02/24/2025 3:43 PM EDT [facility] Comment: Hemoglobin A1C levels are related to mean glucose during the preceding 2-3 months. Less than 7% demonstrates glycemic control in diabetic patients. Hemoglobin AlC % Suggested Diagnosis > or = 6.5 Diabetic 5.7 - 6.4 Prediabetic <5.7 Non-diabetic eAVG Glucose 114.02 70 - 126 mg/dL 02/24/2025 3:43 PM EDT [facility] Blood Venipuncture / Unknown 02/24/2025 3:04 PM EDT 02/24/2025 3:25 PM EDT us De Fox MD LAB BLOOD ORDERABLES Final Res ult [facility] 1 [place] [address], [facility] [phone] * ABO/RH CONFIRMATION/RETYPE (02/24/2025 3:03 PM EDT) RETYPE O Negative 02/24/2025 3:23 PM EDT [facility] ([place]) Blood Venipuncture / Unknown 02/24/2025 3:03 PM EDT 02/24/2025 3:23 PM EDT us De Fox MD [facility] BLOOD BANK TEST ORDERABLES Final Result Performing Organization Address [facility]/ZIP Co de Phone Number [facility] ([place]) 1 [place] [address], [facility] [phone] * (ABNORMAL) Urinalysis without Microscopic (02/24/2025 3:03 PM EDT) Color, UA Light Yellow 02/24/2025 3:39 PM EDT [facility] Clarity, UA Clear Clear 02/24/2025 3:39 PM EDT [facility] Specific [place], UA 1.014 1.005 - 1.030 02/24/2025 3:39 PM EDT [facility] pH, UA 5.0(L) 6.0 - 8.0 02/24/2025 3:39 PM EDT [facility] Leukocytes, UA Negative Negative 02/24/2025 3:39 PM EDT [facility] Nitrite, UA Negative Negative 02/24/2025 3:39 PM EDT [facility] Protein, UA Negative Negative 02/24/2025 3:39 PM EDT [facility] Glucose, UA Normal Normal 02/24/2025 3:39 PM EDT [facility] Ketones, UA Negative Negative 02/24/2025 3:39 PM EDT [facility] Urobilinogen, UA Normal Normal 02/24/2025 3:39 PM EDT [facility] Bilirubin, UA Negative Negative 02/24/2025 3:39 PM EDT [facility] Blood, UA Negative Negative 02/24/2025 3:39 PM EDT [facility] Specimen Source Urine, Clean Catch 02/24/2025 3:39 PM EDT [facility] Urine URINE SPECIMEN COLLECTION, CLEAN CATCH / Unknown 02/24/2025 3:03 PM EDT 02/24/2025 3:26 PM EDT us Julio César Cavrajal MD URINE ORDERABLES Final Result [facility] [address] [place] [id number] [phone] from Last 3 Months Insurance [facility] [place] [id number] [employer] MEDICARE PART A ONLY Advance Directives For more information, please contact: [phone] Documents on File Type Date Recorded Patient Fusion Juncture Grinder Expl anation Advance Directives and Livin g Will 03/02/2025 5:54 AM * Full Code (Latest Code Status on File) Date Activated Date Inactivated Comments 03/02/2025 9:09 AM 03/05/2025 2:09 PM Care Teams Press Leader Relationship Specialty Start Date End Date Krishan Caldwell MD [address] [place] [address] PCP - General Adolescent Medicine 03/02/25
--- OUTSIDE RECORDS SUMMARY | 2025-04-12 10:10 | XMS_ITS | Clinical Summary ---
Author Organization [facility] Address [address] [place] [address] Care Team Providers Care Sales And Leasing Agent Name Role Phone Krishan Caldwell MD Primary Care Provider [phone] Allergies No known active allergies Social History [...] Relevant to Health Maintenance Insurance Care Teams Sales And Leasing Agent Relationship Specialty Start Date End Date Krishan Caldwell MD [address] [facility] [address] [place] [address] PCP - General Adolescent Medicine 04/26/24
[2025-04-12 10:14] LABS: Microscopic, Urine URINE MICROSCOPIC (MICROSCOPIC)
[2025-04-12 11:07] LABS: Bilirubin,Urine Negative (Negative); Color,Urine YELLOW (Yellow); Glucose,Urine (UA) Negative (Negative); Ketones,Urine Negative (Negative); Leukocyte Esterase,Urine 1+ (Negative); PH,Urine 6.0 (5.0-8.5); Protein,Urine Negative (Negative); Specific Gravity, Urine 1.015 (1.005-1.030); Urobilinogen,Urine 1.0 EU/dl (0.2)
[2025-04-12 11:14] LABS: Hematocrit 36.9 % (37.0-47.0); Hemoglobin 11.9 g/dL (12.2-16.2); Immature Granulocytes % 0.2 %; Mean Corpuscular HGB Conc 32.2 g/dL (31.8-35.4); Mean Corpuscular Hemoglobin 29.1 pg (27.0-31.2); Mean Corpuscular Volume 90.2 fl (81-99); Nucleated Red Blood Cells % 0 %; Platelet Count 180 K/mm3 (142-424); Red Blood Count 4.09 M/mm3 (4.20-5.40); Red Cell Distribution Width-SD 46.2 fL; White Blood Count 6.1 K/mm3 (4.8-10.8)
[2025-04-12 11:29] LABS: Bacteria,Urine 1+ /lpf
[2025-04-12 12:38] LABS: Alanine Aminotransferase 25 U/L (12-78); Albumin Level 4.1 g/dl (3.5-5.0); Albumin/Globulin Ratio 1.8 (1.1-1.8); Alkaline Phosphatase 142 U/L (38-126); Aspartate Amino Transferase 37 U/L (14-36); Bilirubin,Total 0.9 mg/dl (0.2-1.3); Blood Urea Nitrogen 17 mg/dl (7-17); Calcium 10.1 mg/dl (8.4-10.2); Carbon Dioxide 26 mmol/L (22.0-30.0); Chloride 104 mmol/L (98-107); Creatinine,Serum 1.30 mg/dl (0.52-1.04); Estimated Glomerular Filt Rate 40 ml/min (>60); GFR (African American) 48 ML/MIN (>60); Globulin 2.3 g/dL (1.3-3.2); Glucose 94 mg/dl (74-100); Sodium 137 mmol/L (136-145); Total Protein,Serum 6.4 g/dl (6.3-8.2)
[2025-04-12 12:42] LABS: Anion Gap 11.4 mEq/L (5-15); Potassium 4.4 mmoL/L (3.5-5.1)
[2025-04-12 12:53] LABS: Free Thyroxine Index 4.4 ug/dL (5.93-13.13); T4 (Thyroxine) 11.6 ug/dl (5.53-11.0); Triiodothryronine (T3) Uptake 38 % (23.5-40.5)
[2025-04-12 13:00] LABS: 25-OH Vitamin D, Total 50.1 ng/mL (30-100)
[2025-04-12 13:07] LABS: Thyroid Stimulating Hormone 0.06 uIU/mL (0.465-4.68)
[2025-04-12 13:11] LABS: Hemoglobin A1C 5.4 % (4.0-6.0)
[2025-04-12 13:35] LABS: Vitamin B12 583 pg/mL (239-931)
[2025-04-12 13:45] LABS: Amphetamine/Metha Screen,Urine Negative ng/ml (<1000); Barbiturates Screen,Urine Negative ng/ml (<200); Benzodiazepines Screen,Urine Negative ng/ml (<200); Methadone Screen,Urine Negative ng/ml (<300); Opiate Screen,Urine Negative ng/ml (<300); Phencyclidine Screen,Urine Negative ng/ml (<25)
== END 2025-04-12 23:59 | disposition home or self-care (01) ==
LOC: LAB 10:02
PROVIDERS: PCP Internal Medicine Adolescent Medicine; Visit Provider Internal Medicine Adolescent Medicine
DX: E11.59 Type 2 diabetes mellitus with other circulatory complications (principal); E78.5 Hyperlipidemia, unspecified; E03.9 Hypothyroidism, unspecified; M48.02 Spinal stenosis, cervical region; E53.8 Deficiency of other specified B group vitamins; E55.9 Vitamin D deficiency, unspecified
CPT/HCPCS: 36415; 80053; 80307; 81001; 82306; 82607; 83036; 84436; 84443; 84479; 85025; 87086